=== PATIENT | male | born 1965 | race Caucasian/White ===

== ENCOUNTER 2017-11-01 09:09 | Outpatient (RCR) | payer MEDICARE, MEDICAID, SELFPAY ==
[2017-10-11 00:14] VITALS: BP 107/70; PULSE 106; RESP 16; TEMP 36.3; BMI 16.9
[2017-11-01 10:44] VITALS: BP 117/60; PULSE 95; RESP 16; TEMP 36.7; BMI 16.9
--- NOTE | 2017-11-01 15:15 | PN.PCM_ITS ---
Type of Wound Date of Service: 11/01/17 Chief Complaint: Bilateral ischial pressure sores, Stage IV. History of Wound: Patient has long standing bilateral ischial pressure sores, Stage IV, with the left side extending to the femoral head and the right side extending to the perineal area and the prostate. Surgery would entail quite extensive excision with amputations at a tertiary center. Patient does not want to pursue any heroic surgeries at this time since it is not a guarantee his pressure issues won't recur. With aggressive amputations, his already tenuous balance would be even more disrupted. Today he denies any fever. His appetite is ok. At the present time, we are providing conservative care on a monthly basis. Progress of Wound: Stable with minimal improvement. - Physical Exam Vital Signs Temp Pulse Resp BP 98.1 F 95 16 117/60 11/01/17 10:44 11/01/17 10:44 11/01/17 10:44 11/01/17 10:44 Wound Measurements and Assessment WC - Nurse 1 - General Ulcer Measurement Start: 11/01/17 10:44 Freq: Status: Active Protocol: Activity Type Activity Date Activity User E-Sign Co-Sign Detail Recorded Client Recorded Date Recorded By Document 11/01/17 10:44 DL [id number] 11/01/17 11:00 DL 11/01/17 10:44 Wound Center Nurse 1 [Ulcer Assessment Protocol: WC.WD.LOC] #2 Left Ischium -Current Size (cm) - Length 3 -Current Size (cm) - Width 7.5 -Current Size (cm) - Depth 0.7 -Total Square Cm 22.5 -Photo Taken No -Epithelialization Medium 34-66% -Exudate Amt Medium (34-66%) -Exudate Type Serosanguineous -Wound Margin Thickened & Rolled Under -Granulation Amt Medium (34-66%) -Granulation Quality [place] Red -Necrosis Amt Medium (34-66%) -Necrotic Tissue Type Adherent Slough -Structure Exposed N/A -Texture (Steffi-wound Skin Appearance) Scarring -Moisture (Steffi-wound Skin Appearance No Abnormality ) -Color (Steffi-wound Skin Appearance) No Abnormality -Temperature (Steffi-wound Skin No Abnormality Appearance) (Pt Warm) -Tenderness on Palpation (Steffi-wound No Skin Appearance) -Ulcer Cleansing Rinsed/ Irrigated with Saline -Foul Odor after Cleansing No -Anesthetic Used 4% Lidocaine Solution #1 Right Ischium -Current Size (cm) - Length 2.6 -Current Size (cm) - Width 5 -Current Size (cm) - Depth 1.6 -Total Square Cm 13.0 -Photo Taken No -Epithelialization Medium 34-66% -Tunneling Position (O'clock) 1 -Tunneling Distance (cm) 6.7 -Exudate Amt Medium (34-66%) -Exudate Type Serosanguineous -Wound Margin Thickened & Rolled Under -Granulation Amt Medium (34-66%) -Granulation Quality [place] Red -Necrosis Amt Medium (34-66%) -Necrotic Tissue Type Adherent Slough -Structure Exposed N/A -Texture (Steffi-wound Skin Appearance) Scarring -Moisture (Steffi-wound Skin Appearance No Abnormality ) -Color (Steffi-wound Skin Appearance) No Abnormality -Ulcer Cleansing Rinsed/ Irrigated with Saline -Foul Odor after Cleansing No -Anesthetic Used 4% Lidocaine Solution WC - Nurse 2 - General Ulcer CM Notes Start: 11/01/17 10:44 Freq: Status: Active Protocol: Activity Type Activity Date Activity User E-Sign Co-Sign Detail Recorded Client Recorded Date Recorded By Document 11/01/17 11:40 [id number] 11/01/17 11:41 DEBORAH 11/01/17 11:40 Wound Center Nurse 2 [Procedure/Treatment] #2 Left Ischium -Time 11:40 -Correct Patient Yes -Correct Side, Site, Position Yes -Correct Procedure Yes -Procedure Performed Yes -Type of Procedure Debridement -Clinical Debridement Subcutaneous -Post Debridement Size (cm) - Length 3.1 -Post Debridement Size (cm) - Width 7.5 -Post Debridement Size (cm) - Depth 0.8 -Total Square Cm 23.25 -Wound/Ulcer Outcome Not Healed -Ulcer Cleansing Rinsed/ Irrigated with Saline -Foul Odor after Cleansing No -Bioengineered Tissue No -Cetacaine [place] No -Bleeding Controlled with Pressure -Treatment Response Procedure Tolerated Well #1 Right Ischium -Time 11:40 -Correct Patient Yes -Correct Side, Site, Position Yes -Correct Procedure Yes -Procedure Performed Yes -Type of Procedure Debridement -Clinical Debridement Subcutaneous -Post Debridement Size (cm) - Length 2.7 -Post Debridement Size (cm) - Width 5 -Post Debridement Size (cm) - Depth 1.6 -Total Square Cm 13.5 -Wound/Ulcer Outcome Not Healed -Ulcer Cleansing Rinsed/ Irrigated with Saline -Foul Odor after Cleansing No -Bioengineered Tissue No -Cetacaine [place] No -Bleeding Controlled with Pressure -Treatment Response Procedure Tolerated Well [See Physician Procedure note for Specifics] Pain Scale: 0-10 Numeric [Pain] -Is Patient Pain Free? Yes Debridement Note Post-Debridement Measurements/Treatment WC - Nurse 2 - General Ulcer CM Notes Start: 11/01/17 10:44 Freq: Status: Active Protocol: Activity Type Activity Date Activity User E-Sign Co-Sign Detail Recorded Client Recorded Date Recorded By Document 11/01/17 11:40 [id number] 11/01/17 11:41 DEBORAH 11/01/17 11:40 Wound Center Nurse 2 #2 Left Ischium -Time 11:40 -Correct Patient Yes -Correct Side, Site, Position Yes -Correct Procedure Yes -Procedure Performed Yes -Type of Procedure Debridement -Clinical Debridement Subcutaneous -Post Debridement Size (cm) - Length 3.1 -Post Debridement Size (cm) - Width 7.5 -Post Debridement Size (cm) - Depth 0.8 -Total Square Cm 23.25 -Wound/Ulcer Outcome Not Healed -Ulcer Cleansing Rinsed/ Irrigated with Saline -Foul Odor after Cleansing No -Bioengineered Tissue No -Cetacaine [place] No -Bleeding Controlled with Pressure -Treatment Response Procedure Tolerated Well #1 Right Ischium -Time 11:40 -Correct Patient Yes -Correct Side, Site, Position Yes -Correct Procedure Yes -Procedure Performed Yes -Type of Procedure Debridement -Clinical Debridement Subcutaneous -Post Debridement Size (cm) - Length 2.7 -Post Debridement Size (cm) - Width 5 -Post Debridement Size (cm) - Depth 1.6 -Total Square Cm 13.5 -Wound/Ulcer Outcome Not Healed -Ulcer Cleansing Rinsed/ Irrigated with Saline -Foul Odor after Cleansing No -Bioengineered Tissue No -Cetacaine [place] No -Bleeding Controlled with Pressure -Treatment Response Procedure Tolerated Well Pain Scale: 0-10 Numeric Is Patient Pain Free? Yes Wound debrided: #1 Right ischial area with perineal extension. Laterality: Right Wound Grade/Stage: IV. Type of Debridement: Excisional debridement Anesthesia Used: 4% Lidocaine Solution Depth: Down to and including healthy tissue, in the subcutaneous layer Percentage of wound debrided: 100 Instrument Used: 7mm curette Tissue Removed: subcutaneous tissue. Severity: Fat Layer Exposed Amount of bleeding with debridement: Mild Bleeding Controlled with: Pressure Patient tolerated procedure well - Additional Wound Wound debrided: #2 Left ischial area with femoral extension. Laterality: Left Wound Grade/Stage: IV. Type of Debridement: Excisional debridement Anesthesia Used: 4% Lidocaine Solution Depth: Down to and including healthy tissue, in the subcutaneous layer Percentage of wound debrided: 100 Instrument Used: 7mm curette Tissue Removed: subcutaneous tissue. Severity: Fat Layer Exposed Amount of bleeding with debridement: Mild Bleeding Controlled with: Pressure Patient tolerated procedure: Patient tolerated procedure well Assessment/Plan Assessment: 1. Right ischial pressure sore with extension to perineal area, Stage IV. 2. Left ischial pressure sore with extension to the femur, Stage IV. 3. Paraplegia, longstanding. 4. History of MRSA. 5. History of osteomyelitis with multiple prior surgeries. 6. Smoker. Plan: Continue Aquacel silver dressing changes daily to both ischial pressure sores. Encourage nutritional supplementation with protein to help the healing process. Encouraged the patient to stop smoking as it may have deleterious effects on wound healing. Followup 4 weeks.
== END 2017-11-10 23:59 ==
LOC: WC 09:09
PROVIDERS: Family Provider Family Medicine; PCP Family Medicine; Visit Provider Surgery
DX: L89.224 Pressure ulcer of left hip, stage 4 (principal); L89.214 Pressure ulcer of right hip, stage 4; G82.20 Paraplegia, unspecified; Z86.14 Personal history of Methicillin resistant Staphylococcus aureus infection; F17.200 Nicotine dependence, unspecified, uncomplicated
CPT/HCPCS: 11042; 11045

== ENCOUNTER 2017-11-29 11:07 | Outpatient (RCR) | payer MEDICARE, MEDICAID, SELFPAY ==
[2017-11-01 10:44] VITALS: BP 117/60
[2017-11-11 00:23] VITALS: PULSE 95; RESP 16; TEMP 36.7
[2017-11-29 11:15] VITALS: BP 151/78; PULSE 108; RESP 18; TEMP 36.5; BMI 16.9
--- NOTE | 2017-11-29 19:23 | PN.PCM_ITS ---
Type of Wound Date of Service: 11/29/17 Chief Complaint: Bilateral ischial pressure sores, Stage IV. History of Wound: Patient has long standing bilateral ischial pressure sores, Stage IV, with the left side extending to the femoral head and the right side extending to the perineal area and the prostate. Surgery would entail quite extensive excision with amputations at a tertiary center. Patient does not want to pursue any heroic surgeries at this time since it is not a guarantee his pressure issues won't recur. With aggressive amputations, his already tenuous balance would be even more disrupted. Today he denies any fever. His appetite is ok. At the present time, we are providing conservative care on a monthly basis. Progress of Wound: Stable with minimal improvement. - Physical Exam Vital Signs Temp Pulse Resp BP 97.7 F L 108 H 18 151/78 H 11/29/17 11:15 11/29/17 11:15 11/29/17 11:15 11/29/17 11:15 Wound Measurements and Assessment WC - Nurse 1 - General Ulcer Measurement Start: 11/29/17 11:15 Freq: Status: Active Protocol: Activity Type Activity Date Activity User E-Sign Co-Sign Detail Recorded Client Recorded Date Recorded By Document 11/29/17 11:15 DV [id number] 11/29/17 11:26 DV 11/29/17 11:15 Wound Center Nurse 1 [Ulcer Assessment] #2 Left Ischium -Combined with other wound No -Current Size (cm) - Length 5.3 -Current Size (cm) - Width 7.5 -Current Size (cm) - Depth 0.9 -Total Square Cm 39.75 -Photo Taken Yes -Epithelialization None Present -Tunneling No -Undermining/Tunneling Yes -Undermining/Tunneling Starts (O' 11 clock) -Undermining/Tunneling Ends (O'clock) 4 -Maximum Distance (cm) 1.9 -Circular Undermining No -Classification - Thickness Full Thickness with Exposed Support Structure -Exudate Amt Large (67-100%) -Exudate Type Yellow/Green -Wound Margin Distinct, Outline Attached -Granulation Amt None Present (0 %) -Granulation Quality [place] -Slough/Fibrin Yes -Necrosis Amt Large (67-100%) -Necrotic Tissue Type Adherent Slough -Structure Exposed Muscle Bone Fat Layer Exposed None/Limited to Skin Breakdown -Texture (Steffi-wound Skin Appearance) Assessed Scarring -Moisture (Steffi-wound Skin Appearance Assessed ) Maceration -Color (Steffi-wound Skin Appearance) Assessed Ery[place]ma -Temperature (Steffi-wound Skin No Abnormality Appearance) (Pt Warm) -Tenderness on Palpation (Steffi-wound No Skin Appearance) -Ulcer Cleansing Wound Cleanser -Foul Odor after Cleansing No #1 Right Ischium -Combined with other wound No -Current Size (cm) - Length 3.4 -Current Size (cm) - Width 3.8 -Current Size (cm) - Depth 1.3 -Total Square Cm 12.92 -Photo Taken Yes -Epithelialization None Present -Tunneling No -Tunneling Position (O'clock) 10 -Tunneling Distance (cm) 7.1 -Classification - Thickness Full Thickness with Exposed Support Structure -Exudate Amt Medium (34-66%) -Exudate Type Serosanguineous -Wound Margin Distinct, Outline Attached -Granulation Amt None Present (0 %) -Granulation Quality N/A -Slough/Fibrin Yes -Necrosis Amt Medium (34-66%) -Necrotic Tissue Type Adherent Slough -Structure Exposed Muscle Fat Layer Exposed -Texture (Steffi-wound Skin Appearance) Assessed Scarring -Moisture (Steffi-wound Skin Appearance No Abnormality ) Maceration [place] -Color (Steffi-wound Skin Appearance) Assessed Erythema -Temperature (Steffi-wound Skin No Abnormality Appearance) (Pt Warm) -Ulcer Cleansing Wound Cleanser -Foul Odor after Cleansing No WC - Nurse 2 - General Ulcer CM Notes Start: 11/29/17 11:15 Freq: Status: Active Protocol: Activity Type Activity Date Activity User E-Sign Co-Sign Detail Recorded Client Recorded Date Recorded By Document 11/29/17 11:41 DEBORAH [id number] 11/29/17 11:42 DEBORAH 11/29/17 11:41 Wound Center Nurse 2 [Procedure/Treatment] #2 Left Ischium -Time 11:41 -Correct Patient Yes -Correct Side, Site, Position Yes -Correct Procedure Yes -Procedure Performed Yes -Type of Procedure Debridement -Clinical Debridement Muscle -Post Debridement Size (cm) - Length 5.5 -Post Debridement Size (cm) - Width 7.5 -Post Debridement Size (cm) - Depth 1.0 -Total Square Cm 41.25 -Wound/Ulcer Outcome Not Healed -Ulcer Cleansing Rinsed/ Irrigated with Saline -Foul Odor after Cleansing No -Bioengineered Tissue No -Bleeding Controlled with Pressure -Treatment Response Procedure Tolerated Well #1 Right Ischium -Time 11:41 -Correct Patient Yes -Correct Side, Site, Position Yes -Correct Procedure Yes -Procedure Performed Yes -Type of Procedure Debridement -Clinical Debridement Muscle -Post Debridement Size (cm) - Length 3.5 -Post Debridement Size (cm) - Width 3.8 -Post Debridement Size (cm) - Depth 1.3 -Total Square Cm 13.30 -Wound/Ulcer Outcome Not Healed -Ulcer Cleansing Rinsed/ Irrigated with Saline -Foul Odor after Cleansing No -Bioengineered Tissue No -Bleeding Controlled with Pressure -Treatment Response Procedure Tolerated Well [See Physician Procedure note for Specifics] Pain Scale: 0-10 Numeric [Pain] -Is Patient Pain Free? Yes Debridement Note Post-Debridement Measurements/Treatment WC - Nurse 2 - General Ulcer CM Notes Start: 11/29/17 11:15 Freq: Status: Active Protocol: Activity Type Activity Date Activity User E-Sign Co-Sign Detail Recorded Client Recorded Date Recorded By Document 11/29/17 11:41 [id number] 11/29/17 11:42 DEBORAH 11/29/17 11:41 Wound Center Nurse 2 #2 Left Ischium -Time 11:41 -Correct Patient Yes -Correct Side, Site, Position Yes -Correct Procedure Yes -Procedure Performed Yes -Type of Procedure Debridement -Clinical Debridement Muscle -Post Debridement Size (cm) - Length 5.5 -Post Debridement Size (cm) - Width 7.5 -Post Debridement Size (cm) - Depth 1.0 -Total Square Cm 41.25 -Wound/Ulcer Outcome Not Healed -Ulcer Cleansing Rinsed/ Irrigated with Saline -Foul Odor after Cleansing No -Bioengineered Tissue No -Bleeding Controlled with Pressure -Treatment Response Procedure Tolerated Well #1 Right Ischium -Time 11:41 -Correct Patient Yes -Correct Side, Site, Position Yes -Correct Procedure Yes -Procedure Performed Yes -Type of Procedure Debridement -Clinical Debridement Muscle -Post Debridement Size (cm) - Length 3.5 -Post Debridement Size (cm) - Width 3.8 -Post Debridement Size (cm) - Depth 1.3 -Total Square Cm 13.30 -Wound/Ulcer Outcome Not Healed -Ulcer Cleansing Rinsed/ Irrigated with Saline -Foul Odor after Cleansing No -Bioengineered Tissue No -Bleeding Controlled with Pressure -Treatment Response Procedure Tolerated Well Pain Scale: 0-10 Numeric Is Patient Pain Free? Yes Wound debrided: #1 Right ischial area with perineal extension. Laterality: Right Wound Grade/Stage: IV. Type of Debridement: Excisional debridement Anesthesia Used: 4% Lidocaine Solution Depth: Down to and including healthy tissue, in the subcutaneous layer, to muscle Percentage of wound debrided: 100 Instrument Used: 7mm curette Tissue Removed: subcutaneous tissue and muscle. Severity: Fat Layer Exposed - muscle is exposed. bone is palpable. Amount of bleeding with debridement: Mild Bleeding Controlled with: Pressure Patient tolerated procedure well - Additional Wound Wound debrided: #2 Left ischial area with femoral extension. Laterality: Left Wound Grade/Stage: IV. Type of Debridement: Excisional debridement Anesthesia Used: 4% Lidocaine Solution Depth: Down to and including healthy tissue, in the subcutaneous layer, to muscle Percentage of wound debrided: 100 Instrument Used: 7mm curette Tissue Removed: subcutaneous tissue and muscle. Severity: Fat Layer Exposed - muscle is exposed. bone is palpable. Amount of bleeding with debridement: Mild Bleeding Controlled with: Pressure Patient tolerated procedure: Patient tolerated procedure well Assessment/Plan Assessment: 1. Right ischial pressure sore with extension to perineal area, Stage IV. 2. Left ischial pressure sore with extension to the femur, Stage IV. 3. Paraplegia, longstanding. 4. History of MRSA. 5. History of osteomyelitis with multiple prior surgeries. 6. Smoker. Plan: Continue Aquacel silver dressing changes daily to both ischial pressure sores. Encourage nutritional supplementation with protein to help the healing process. Encouraged the patient to stop smoking as it may have deleterious effects on wound healing. Followup 4 weeks.
== END 2017-12-08 23:59 ==
LOC: WC 11:07
PROVIDERS: Family Provider Family Medicine; PCP Family Medicine; Visit Provider Surgery
DX: L89.224 Pressure ulcer of left hip, stage 4 (principal); L89.214 Pressure ulcer of right hip, stage 4; F17.200 Nicotine dependence, unspecified, uncomplicated; Z86.14 Personal history of Methicillin resistant Staphylococcus aureus infection; G82.20 Paraplegia, unspecified
CPT/HCPCS: 11043; 11046

== ENCOUNTER 2017-12-27 08:21 | Outpatient (RCR) | payer MEDICARE, MEDICAID, SELFPAY ==
[2017-12-09 00:23] VITALS: BP 117/60; PULSE 108; RESP 18; TEMP 36.5; BMI 16.9
[2017-12-27 11:26] VITALS: BP 120/58; PULSE 93; RESP 18; TEMP 37; BMI 16.9
--- NOTE | 2017-12-27 18:30 | PN.PCM_ITS ---
Type of Wound Date of Service: 12/27/17 Chief Complaint: Bilateral ischial pressure sores, Stage IV. History of Wound: Patient has long standing bilateral ischial pressure sores, Stage IV, with the left side extending to the femoral head and the right side extending to the perineal area and the prostate. Surgery would entail quite extensive excision with amputations at a tertiary center. Patient does not want to pursue any heroic surgeries at this time since it is not a guarantee his pressure issues won't recur. With aggressive amputations, his already tenuous balance would be even more disrupted. Today he denies any fever. His appetite is ok. At the present time, we are providing conservative care on a monthly basis. Progress of Wound: Stable with minimal improvement. - Physical Exam Vital Signs Temp Pulse Resp BP 98.6 F 93 18 120/58 L 12/27/17 11:26 12/27/17 11:26 12/27/17 11:26 12/27/17 11:26 Wound Measurements and Assessment WC - Nurse 1 - General Ulcer Measurement Start: 12/27/17 11:26 Freq: Status: Active Protocol: Activity Type Activity Date Activity User E-Sign Co-Sign Detail Recorded Client Recorded Date Recorded By Document 12/27/17 11:26 [facility] [id number] 12/27/17 11:36 [facility] 12/27/17 11:26 Wound Center Nurse 1 [Ulcer Assessment] #2 Left Ischium -Combined with other wound No -Current Size (cm) - Length 5.3 -Current Size (cm) - Width 7.6 -Current Size (cm) - Depth 1.2 -Total Square Cm 40.28 -Date of Last Picture (Recall this 12/27/17 field) -Photo Taken Yes -Epithelialization None Present -Tunneling No -Undermining/Tunneling Yes -Undermining/Tunneling Starts (O' 11 clock) -Undermining/Tunneling Ends (O'clock) 6 -Maximum Distance (cm) 2.5 -Exudate Amt Medium (34-66%) -Exudate Type Serosanguineous -Wound Margin Distinct, Outline Attached -Granulation Amt Medium (34-66%) -Granulation Quality Pale [place] -Slough/Fibrin Yes -Necrosis Amt Small (1-33%) -Necrotic Tissue Type Adherent Slough -Texture (Steffi-wound Skin Appearance) Scarring -Moisture (Steffi-wound Skin Appearance Maceration ) -Color (Steffi-wound Skin Appearance) Assessed Palor -Temperature (Steffi-wound Skin No Abnormality Appearance) (Pt Warm) -Tenderness on Palpation (Steffi-wound No Skin Appearance) -Ulcer Cleansing Rinsed/ Irrigated with Saline -Foul Odor after Cleansing No #1 Right Ischium -Combined with other wound No -Current Size (cm) - Length 2.5 -Current Size (cm) - Width 5.5 -Current Size (cm) - Depth 1.7 -Total Square Cm 13.75 -Date of Last Picture (Recall this 12/27/17 field) -Photo Taken Yes -Epithelialization Small 1-33% -Tunneling No -Undermining/Tunneling Yes -Undermining/Tunneling Starts (O' 3 clock) -Undermining/Tunneling Ends (O'clock) 7 -Maximum Distance (cm) 1.5 -Exudate Amt Medium (34-66%) -Exudate Type Serosanguineous -Wound Margin Distinct, Outline Attached -Granulation Amt Medium (34-66%) -Granulation Quality [place] -Slough/Fibrin Yes -Necrosis Amt Medium (34-66%) -Necrotic Tissue Type Adherent Slough -Texture (Steffi-wound Skin Appearance) Scarring -Moisture (Steffi-wound Skin Appearance Maceration ) -Color (Steffi-wound Skin Appearance) Erythema -Temperature (Steffi-wound Skin No Abnormality Appearance) (Pt Warm) -Tenderness on Palpation (Steffi-wound No Skin Appearance) -Ulcer Cleansing Rinsed/ Irrigated with Saline -Foul Odor after Cleansing No WC - Nurse 2 - General Ulcer CM Notes Start: 12/27/17 11:26 Freq: Status: Active Protocol: Activity Type Activity Date Activity User E-Sign Co-Sign Detail Recorded Client Recorded Date Recorded By Document 12/27/17 11:54 DEBORAH [id number] 12/27/17 11:56 DEBORAH 12/27/17 11:54 Wound Center Nurse 2 [Procedure/Treatment] #2 Left Ischium -Time 11:55 -Correct Patient Yes -Correct Side, Site, Position Yes -Correct Procedure Yes -Procedure Performed Yes -Type of Procedure Debridement -Clinical Debridement Muscle -Post Debridement Size (cm) - Length 5.3 -Post Debridement Size (cm) - Width 7.7 -Post Debridement Size (cm) - Depth 1.2 -Total Square Cm 40.81 -Wound/Ulcer Outcome Not Healed -Ulcer Cleansing Rinsed/ Irrigated with Saline -Foul Odor after Cleansing No -Bioengineered Tissue No -Bleeding Controlled with Pressure -Treatment Response Procedure Tolerated Well #1 Right Ischium -Time 11:55 -Correct Patient Yes -Correct Side, Site, Position Yes -Correct Procedure Yes -Procedure Performed Yes -Type of Procedure Debridement -Clinical Debridement Muscle -Post Debridement Size (cm) - Length 2.5 -Post Debridement Size (cm) - Width 5.6 -Post Debridement Size (cm) - Depth 1.7 -Total Square Cm 14.00 -Wound/Ulcer Outcome Not Healed -Ulcer Cleansing Rinsed/ Irrigated with Saline -Foul Odor after Cleansing No -Bioengineered Tissue No -Bleeding Controlled with Pressure -Treatment Response Procedure Tolerated Well [See Physician Procedure note for Specifics] Pain Scale: 0-10 Numeric [Pain] -Is Patient Pain Free? Yes Debridement Note Post-Debridement Measurements/Treatment WC - Nurse 2 - General Ulcer CM Notes Start: 12/27/17 11:26 Freq: Status: Active Protocol: Activity Type Activity Date Activity User E-Sign Co-Sign Detail Recorded Client Recorded Date Recorded By Document 12/27/17 11:54 DEBORAH [id number] 12/27/17 11:56 DEBORAH 12/27/17 11:54 Wound Center Nurse 2 #2 Left Ischium -Time 11:55 -Correct Patient Yes -Correct Side, Site, Position Yes -Correct Procedure Yes -Procedure Performed Yes -Type of Procedure Debridement -Clinical Debridement Muscle -Post Debridement Size (cm) - Length 5.3 -Post Debridement Size (cm) - Width 7.7 -Post Debridement Size (cm) - Depth 1.2 -Total Square Cm 40.81 -Wound/Ulcer Outcome Not Healed -Ulcer Cleansing Rinsed/ Irrigated with Saline -Foul Odor after Cleansing No -Bioengineered Tissue No -Bleeding Controlled with Pressure -Treatment Response Procedure Tolerated Well #1 Right Ischium -Time 11:55 -Correct Patient Yes -Correct Side, Site, Position Yes -Correct Procedure Yes -Procedure Performed Yes -Type of Procedure Debridement -Clinical Debridement Muscle -Post Debridement Size (cm) - Length 2.5 -Post Debridement Size (cm) - Width 5.6 -Post Debridement Size (cm) - Depth 1.7 -Total Square Cm 14.00 -Wound/Ulcer Outcome Not Healed -Ulcer Cleansing Rinsed/ Irrigated with Saline -Foul Odor after Cleansing No -Bioengineered Tissue No -Bleeding Controlled with Pressure -Treatment Response Procedure Tolerated Well Pain Scale: 0-10 Numeric Is Patient Pain Free? Yes Wound debrided: #1 Right ischial area with perineal extension. Laterality: Right Wound Grade/Stage: IV. Type of Debridement: Excisional debridement Anesthesia Used: 4% Lidocaine Solution Depth: Down to and including healthy tissue, in the subcutaneous layer, to muscle Percentage of wound debrided: 100 Instrument Used: 7mm curette Tissue Removed: subcutaneous tissue and muscle. Severity: Fat Layer Exposed - muscle is exposed. bone is palpable. Amount of bleeding with debridement: Mild Bleeding Controlled with: Pressure Patient tolerated procedure well - Additional Wound Wound debrided: #2 Left ischial area with femoral extension. Laterality: Left Wound Grade/Stage: IV. Type of Debridement: Excisional debridement Anesthesia Used: 4% Lidocaine Solution Depth: Down to and including healthy tissue, in the subcutaneous layer, to muscle Percentage of wound debrided: 100 Instrument Used: 7mm curette Tissue Removed: subcutaneous tissue and muscle. Severity: Fat Layer Exposed - muscle is exposed. bone is exposed. Amount of bleeding with debridement: Mild Bleeding Controlled with: Pressure Patient tolerated procedure: Patient tolerated procedure well Assessment/Plan Assessment: 1. Right ischial pressure sore with extension to perineal area, Stage IV. 2. Left ischial pressure sore with extension to the femur, Stage IV. 3. Paraplegia, longstanding. 4. History of MRSA. 5. History of osteomyelitis with multiple prior surgeries. 6. Smoker. Plan: Continue Aquacel silver dressing changes daily to both ischial pressure sores. Encourage nutritional supplementation with protein to help the healing process. Encouraged the patient to stop smoking as it may have deleterious effects on wound healing. Followup 4 weeks.
== END 2018-01-08 23:59 ==
LOC: WC 08:21
PROVIDERS: Family Provider Family Medicine; PCP Family Medicine; Visit Provider Surgery
DX: L89.224 Pressure ulcer of left hip, stage 4 (principal); L89.214 Pressure ulcer of right hip, stage 4; G82.20 Paraplegia, unspecified; Z86.14 Personal history of Methicillin resistant Staphylococcus aureus infection; F17.200 Nicotine dependence, unspecified, uncomplicated
CPT/HCPCS: 11043; 11046

== ENCOUNTER 2018-01-24 08:49 | Outpatient (RCR) | payer MEDICARE, MEDICAID, SELFPAY ==
[2018-01-09 00:25] VITALS: BP 117/60; PULSE 93; RESP 18; TEMP 37; BMI 16.9
[2018-01-24 11:18] VITALS: BP 133/46; PULSE 95; RESP 16; TEMP 37; BMI 16.9
--- NOTE | 2018-01-24 23:07 | PCM.WC.PN ---
Type of Wound Date of Service: 01/24/18 Chief Complaint: Bilateral ischial pressure sores, Stage IV. History of Wound: Patient has long standing bilateral ischial pressure sores, Stage IV, with the left side extending to the femoral head and the right side extending to the perineal area and the prostate. Surgery would entail quite extensive excision with amputations at a tertiary center. Patient does not want to pursue any heroic surgeries at this time since it is not a guarantee his pressure issues won't recur. With aggressive amputations, his already tenuous balance would be even more disrupted. Today he denies any fever. His appetite is ok. At the present time, we are providing conservative care on a monthly basis. Progress of Wound: Stable with minimal improvement. - Physical Exam Vital Signs Temp Pulse Resp BP 98.6 F 95 16 133/46 H 01/24/18 11:18 01/24/18 11:18 01/24/18 11:18 01/24/18 11:18 Wound Measurements and Assessment WC - Nurse 1 - General Ulcer Measurement Start: 01/24/18 11:18 Freq: Status: Active Protocol: Activity Type Activity Date Activity User E-Sign Co-Sign Detail Recorded Client Recorded Date Recorded By Document 01/24/18 11:18 [facility] [id number] 01/24/18 11:35 [facility] 01/24/18 11:18 Wound Center Nurse 1 [Ulcer Assessment] #2 Left Ischium -Combined with other wound No -Current Size (cm) - Length 4.4 -Current Size (cm) - Width 6.6 -Current Size (cm) - Depth 1.6 -Total Square Cm 29.04 -Date of Last Picture (Recall this 01/24/18 field) -Photo Taken Yes -Epithelialization None Present -Undermining/Tunneling Starts (O' 6 clock) -Undermining/Tunneling Ends (O'clock) 5 -Maximum Distance (cm) 2.0 -Circular Undermining No -Classification - Thickness Full Thickness without Exposed Support Structure -Exudate Amt Large (67-100%) -Exudate Type Serosanguineous -Wound Margin [place] -Granulation Amt None Present (0 %) -Granulation Quality N/A -Slough/Fibrin Yes -Necrosis Amt Large (67-100%) -Necrotic Tissue Type Adherent Slough -Structure Exposed Fat Layer Exposed None/Limited to Skin Breakdown -Texture (Steffi-wound Skin Appearance) Assessed Localized Edema Scarring -Moisture (Steffi-wound Skin Appearance Assessed ) Weeping -Color (Steffi-wound Skin Appearance) Assessed Palor -Temperature (Steffi-wound Skin No Abnormality Appearance) (Pt Warm) -Tenderness on Palpation (Steffi-wound No Skin Appearance) -Ulcer Cleansing Rinsed/ Irrigated with Saline -Foul Odor after Cleansing No #1 Right Ischium -Combined with other wound No -Current Size (cm) - Length 4.3 -Current Size (cm) - Width 3.1 -Current Size (cm) - Depth 1.5 -Total Square Cm 13.33 -Date of Last Picture (Recall this 01/24/18 field) -Photo Taken Yes -Epithelialization None Present -Tunneling No -Tunneling Position (O'clock) 10 -Tunneling Distance (cm) 7.4 -Undermining/Tunneling No -Exudate Amt Medium (34-66%) -Exudate Type Serosanguineous -Wound Margin [place] -Granulation Amt None Present (0 %) -Slough/Fibrin Yes -Necrosis Amt Large (67-100%) -Necrotic Tissue Type Adherent Slough -Structure Exposed Fat Layer Exposed None/Limited to Skin Breakdown -Texture (Steffi-wound Skin Appearance) Assessed Scarring -Moisture (Steffi-wound Skin Appearance Assessed ) Weeping -Color (Steffi-wound Skin Appearance) Assessed Palor -Temperature (Steffi-wound Skin No Abnormality Appearance) (Pt Warm) -Tenderness on Palpation (Steffi-wound No Skin Appearance) -Ulcer Cleansing Rinsed/ Irrigated with Saline -Foul Odor after Cleansing No WC - Nurse 2 - General Ulcer CM Notes Start: 01/24/18 11:18 Freq: Status: Active Protocol: Activity Type Activity Date Activity User E-Sign Co-Sign Detail Recorded Client Recorded Date Recorded By Document 01/24/18 12:41 DEBORAH [id number] 01/24/18 12:43 DEBORAH 01/24/18 12:41 Wound Center Nurse 2 [Procedure/Treatment] #2 Left Ischium -Time 12:42 -Correct Patient Yes -Correct Side, Site, Position Yes -Correct Procedure Yes -Procedure Performed Yes -Type of Procedure Debridement -Clinical Debridement Muscle -Post Debridement Size (cm) - Length 4.5 -Post Debridement Size (cm) - Width 6.6 -Post Debridement Size (cm) - Depth 1.6 -Total Square Cm 29.70 -Wound/Ulcer Outcome Not Healed -Ulcer Cleansing Rinsed/ Irrigated with Saline -Foul Odor after Cleansing No -Bioengineered Tissue No -Bleeding Controlled with Pressure -Treatment Response Procedure Tolerated Well #1 Right Ischium -Time 12:42 -Correct Patient Yes -Correct Side, Site, Position Yes -Correct Procedure Yes -Procedure Performed Yes -Type of Procedure Debridement -Clinical Debridement Muscle -Post Debridement Size (cm) - Length 4.4 -Post Debridement Size (cm) - Width 3.2 -Post Debridement Size (cm) - Depth 1.5 -Total Square Cm 14.08 -Wound/Ulcer Outcome Not Healed -Ulcer Cleansing Rinsed/ Irrigated with Saline -Foul Odor after Cleansing No -Bioengineered Tissue No -Bleeding Controlled with Pressure -Treatment Response Procedure Tolerated Well [See Physician Procedure note for Specifics] Pain Scale: 0-10 Numeric [Pain] -Is Patient Pain Free? Yes Debridement Note Post-Debridement Measurements/Treatment WC - Nurse 2 - General Ulcer CM Notes Start: 01/24/18 11:18 Freq: Status: Active Protocol: Activity Type Activity Date Activity User E-Sign Co-Sign Detail Recorded Client Recorded Date Recorded By Document 01/24/18 12:41 DEBORAH [id number] 01/24/18 12:43 DEBORAH 01/24/18 12:41 Wound Center Nurse 2 #2 Left Ischium -Time 12:42 -Correct Patient Yes -Correct Side, Site, Position Yes -Correct Procedure Yes -Procedure Performed Yes -Type of Procedure Debridement -Clinical Debridement Muscle -Post Debridement Size (cm) - Length 4.5 -Post Debridement Size (cm) - Width 6.6 -Post Debridement Size (cm) - Depth 1.6 -Total Square Cm 29.70 -Wound/Ulcer Outcome Not Healed -Ulcer Cleansing Rinsed/ Irrigated with Saline -Foul Odor after Cleansing No -Bioengineered Tissue No -Bleeding Controlled with Pressure -Treatment Response Procedure Tolerated Well #1 Right Ischium -Time 12:42 -Correct Patient Yes -Correct Side, Site, Position Yes -Correct Procedure Yes -Procedure Performed Yes -Type of Procedure Debridement -Clinical Debridement Muscle -Post Debridement Size (cm) - Length 4.4 -Post Debridement Size (cm) - Width 3.2 -Post Debridement Size (cm) - Depth 1.5 -Total Square Cm 14.08 -Wound/Ulcer Outcome Not Healed -Ulcer Cleansing Rinsed/ Irrigated with Saline -Foul Odor after Cleansing No -Bioengineered Tissue No -Bleeding Controlled with Pressure -Treatment Response Procedure Tolerated Well Pain Scale: 0-10 Numeric Is Patient Pain Free? Yes Wound debrided: #1 Right ischial area. Laterality: Right Wound Grade/Stage: IV. Type of Debridement: Excisional debridement Anesthesia Used: 4% Lidocaine Solution Depth: Down to and including healthy tissue, in the subcutaneous layer, to muscle, to bone - bone is palpable but not debrided. Percentage of wound debrided: 100 Instrument Used: 7mm curette Tissue Removed: subcutaneous tissue and muscle. Severity: Fat Layer Exposed - muscle is exposed. bone is palpable but not debrided. Amount of bleeding with debridement: Mild Bleeding Controlled with: Pressure Patient tolerated procedure well - Additional Wound Wound debrided: #2 Left ischial area. Laterality: Left Wound Grade/Stage: IV. Type of Debridement: Excisional debridement Anesthesia Used: 4% Lidocaine Solution Depth: Down to and including healthy tissue, in the subcutaneous layer, to muscle, to bone - bone is palpable but not debrided. Percentage of wound debrided: 100 Instrument Used: 7mm curette Tissue Removed: subcutaneous tissue and muscle. Severity: Fat Layer Exposed - muscle is exposed. bone is palpable but not exposed. Amount of bleeding with debridement: Mild Bleeding Controlled with: Pressure Patient tolerated procedure: Patient tolerated procedure well Assessment/Plan Assessment: 1. Right ischial pressure sore with extension to perineal area, Stage IV. 2. Left ischial pressure sore with extension to the femur, Stage IV. 3. Paraplegia, longstanding. 4. History of MRSA. 5. History of osteomyelitis with multiple prior surgeries. 6. Smoker. Plan: Continue Aquacel silver dressing changes daily to both ischial pressure sores. Encourage nutritional supplementation with protein to help the healing process. Encouraged the patient to stop smoking as it may have deleterious effects on wound healing. Followup 4 weeks.
== END 2018-02-07 23:59 ==
LOC: WC 08:49
PROVIDERS: Family Provider Family Medicine; PCP Family Medicine; Visit Provider Surgery
DX: L89.224 Pressure ulcer of left hip, stage 4 (principal); L89.214 Pressure ulcer of right hip, stage 4; Z86.14 Personal history of Methicillin resistant Staphylococcus aureus infection; G82.20 Paraplegia, unspecified; F17.200 Nicotine dependence, unspecified, uncomplicated
CPT/HCPCS: 11043; 11046

== ENCOUNTER → 2018-03-14 09:24 | Outpatient (CLI) | payer MEDICARE, MEDICAID, SELFPAY ==
--- NOTE | 2018-03-14 09:24 | DT_ITS ---
This patient was seen during an EMR downtime March 14, 2018 - March 21, 2018. This patient may have a combination of paper and electronic documentation or all paper documentation. All documentation is viewable within the e-chart portion of [employer] for each patient visit.
--- NOTE | 2018-03-14 10:00 | US_ITS ---
STUDY: SCROTUM ULTRASOUND REASON FOR EXAM: Male, 52 years old. Hydrocele TECHNIQUE: Ultrasound evaluation of the scrotum was performed with color Doppler and static mayfield-scale imaging. COMPARISON: None. FINDINGS: RIGHT TESTICLE INTRATESTICULAR: There is a normal size of the right testicle. The right testicle measures 4.2 x 2.0 x 2.0 cm. There is a homogenous echotexture. There is normal arterial and normal venous vascularity. There is no demonstrated right testicular mass or cyst. r EXTRATESTICULAR: The epididymis is not visualized. There is a large hydrocele or large spermatocele. There is no demonstrated varicocele. There is no demonstrated extratesticular mass or cyst. LEFT TESTICLE INTRATESTICULAR: There is a normal size of the left testicle. The left testicle measures 3.2 x 2.2 x 2.3 cm. There is a homogenous echotexture. There is normal arterial and normal venous vascularity. There is no demonstrated left testicular mass or cyst. EXTRATESTICULAR: The epididymis is normal in size. The epididymis head measures 0.9 x 0.7 cm. There is normal vascularity of the epididymis. There is no demonstrated epididymal cystic structure. There is a small hydrocele. There is no demonstrated varicocele. There is no demonstrated extratesticular mass or cyst. US/Testicular with Arterial Flow IMPRESSION: Normal bilateral testicles. Large right hydrocele or spermatocele. Nonvisualization of the right epididymis. Small left hydrocele. Electronically Signed: Subhash Jiménez DO at 21:22 EDT Tel [phone], Service support ,
== END ==
PROVIDERS: Family Provider Family Medicine; PCP Family Medicine; Visit Provider Urology
DX: N43.3 Hydrocele, unspecified (principal); N50.811 Right testicular pain
CPT/HCPCS: 76870; 93976

== ENCOUNTER 2018-03-21 14:18 | Outpatient (RCR) | payer MEDICARE, MEDICAID, SELFPAY | END 2018-04-09 23:59 | LOC: WC 14:18 | PROVIDERS: Family Provider Family Medicine; PCP Family Medicine; Visit Provider Surgery | DX: L89.222 Pressure ulcer of left hip, stage 2 (principal); L89.212 Pressure ulcer of right hip, stage 2; N50.89 Other specified disorders of the male genital organs; H92.01 Otalgia, right ear | CPT/HCPCS: 11043; 11046 ==

== ENCOUNTER 2018-03-25 12:16 | Day surgery (SDC) | payer MEDICARE, MEDICAID, SELFPAY ==
[2018-03-25 12:43] VITALS: BP 110/80; PULSE 94; RESP 14; TEMP 37; O2SAT 98; BMI 20.8
--- NOTE | 2018-03-25 14:10 | HYD_PTH ---
PATIENT: RICCARDO NERI LOC: [facility] [place] U#:[id number] AGE/SX: 52/M ROOM: RE03/25/[address]: Dr. Juanito Hughes MD : [id number] BED: DIS: 03/25/2018 SPEC #: [id number] RECD: 03/25/18 15:56 STATUS: EMY JOAQUIN #: [id number] GERMAIN: 03/25/18 14:[address]: Juanito Hughes DEPT: SURGICAL PATHOLOGY RECD BY: Patrick Vanegas ENTERED: 03/28/18 07:41 SP TYPE: HYDROCELE OTHR DR: Dr. Piero Comer MD Tissues: HYDROCELE Procedures: Surgery Specimen Level II HEADER OPERATION: Right hydrocelectomy PRE-OP DIAGNOSIS: Large right hydrocele TISSUE SUBMITTED: Hydrocele sac MICROSCOPIC DIAGNOSIS Hydrocele sac, hydrocelectomy: Consistent with hydrocele sac with reactive changes. SJ:cathi 6/19/18 MICROSCOPIC DESCRIPTION Slides are reviewed. GROSS DESCRIPTION Received in fixative is one container labeled with the patient's name and designated hydrocele sac. The specimen consists of an irregular piece of infante, indurated tissue measuring 4 x 3.5 x 0.5 cm. No mass lesion is identified. Clothing Sales Assistant sections are submitted in one cassette. / SJ:rg 03/28/18 TC:5 CPT: 01772
[2018-03-25] MEDS: Bupivacaine Mpf 0.5% 30 ML VIAL (14:24)
[2018-03-25] MEDS: Cefazolin 2 GM in 0.9% Normal Saline 100 ML IV (14:32)
--- NOTE | 2018-03-25 15:13 | PCM.DC.URO ---
Discharge Diet: Light diet - advance as tolerated, Soft diet Discharge Activity: Return to Normal Activity Call your doctor if your incision/area has: Continuous Slow Oozing, Sudden Increased Bleeding, Increased Pain/ Swelling, Increased Redness, Foul Smelling Discharge, Swelling at the incision site Call your doctor if you observe: Fever of 101 or Higher Instructions: Hydrocele Surgery (Hydrocelectomy) Allergies/Adverse Reactions: Allergies cephalexin monohydrate [From Keflex] Allergy (Verified 02/10/16 13:47) Itching ciprofloxacin [From Cipro] Allergy (Verified 02/10/16 13:47) Hives ciprofloxacin HCl [From Cipro] Allergy (Verified 02/10/16 13:47) Hives latex Allergy (Verified 02/10/16 13:47) Hives pt states only if indwelling catheter nitrofurantoin [From Macrobid] Allergy (Verified 02/10/16 13:47) Hives nitrofurantoin macrocrystalline [From Macrobid] Allergy (Verified 02/10/16 13:47) Hives Quinolones Allergy (Verified 02/10/16 13:47) Hives sulfamethoxazole Allergy (Verified 02/10/16 13:47) Hives vancomycin Adverse Reaction (Verified 02/10/16 13:47) Nausea, chills, fatigue, chlostrophobia PT REPORTS CHILLS, FATIGUE, Chlostrophobia, nausea, Feels like head was going to explode WITH TAKING IT ORAL- no problems with IV Medications to take at Discharge Hydrocodone Bitart/Apap 5-325 [Dunn[place]on 5/325] 1 tablet PO Q6H PRN PRN 07/11/13 Diazepam [Valium] 5 mg PO PRN 01/15/16 Primary Care Physician: Piero Comer MD [Primary Care Provider] - Please Follow Up With: Juanito Hughes MD When: call for an appt next to d/c drain.
--- NOTE | 2018-03-25 15:24 | OP.PCM_ITS ---
Report of Operation Date of Procedure: 03/25/18 Pre-Operative Diagnosis: Right hydrocele Post-Operative Diagnosis: same Surgery/Procedure Performed:: Right hydrocelectomy Description of Surgical Findings:: 52-year-old male who has a large symptomatic hydrocele is a spinal cord patient and feels like he has to sit on his hydrocele when he is in his chair he requested that I remove his hydrocele examined him in the office and he did have fairly large symptomatic hydrocele that was below him in the chair causing him pain and discomfort because the location I spoke to the patient specifically regarding the risk that this could get infected given its location and the bottom side and how I would have to do the surgery and after full discussion with the patient he was agree with to proceed we will cover him with antibiotics. We also talked about the potential that the hydrocele could come back and the need for drain postoperatively. Patient was taken back to the operating room at the smooth induction of general anesthesia he is placed on the table he had a very contorted body with contorted spine the legs tilted and contracture to one side was really no way to lay him flat, he had to lay on his side with with his legs to the one side but did this did allow us to get to the scrotum from behind the legs and behind the thighs underneath them with him laying side is the side so with this we prepped the patient on his side can have an awkward position with the scrotum hanging below him and then we prepped in the scrotum in this weird position with him on the side. Made an incision in the scrotal skin infiltrated lidocaine dissected down to the tunica sac dissected out the tunica sac and then delivered it through the small incision 4 cm incisions in the midline scrotum, and then I excised the sac and then oversew the edges with a running 3- 0 chromic, I then placed the drain in the superior aspect of the scrotum that we the drain can come up from above and not go below, we then inspected the scrotum and the scrotal contents the side the testicle was normal epididymis is normal we oversew the edges of the tunica sac with stitches and then placed the testicle back into the scrotal pouch I then placed a drain coming from above the testicle was small stab incision encircling the testicle below the draining the excess fluid around the testicle I sutured the drain in place with a nylon stitch and then closed the midline incision the scrotum with 2 layers of chromic stitches, fluffs and scrotal support was then placed patient's anesthetic was reversed and is taken back to PACU in good condition will follow up with us in about a week to remove the drain. Type of Anesthesia:: General Drains: PREET - Admit VTE Documentation VTE Present on Admission: No VTE Mechan Device Prophylaxis: SCD's VTE Pharm Prophylaxis ordered?: No Reason prophylaxis not ordered:: Treatment Not Indicated
[2018-03-25 15:27] VITALS: BP 110/80; BP 154/79; PULSE 75; RESP 17; TEMP 36.6; O2SAT 100
[2018-03-25 15:30] VITALS: BP 110/80; BP 145/72; PULSE 76; RESP 16; O2SAT 100
[2018-03-25 15:45] VITALS: BP 110/80; BP 139/65; PULSE 67; RESP 16; O2SAT 99
[2018-03-25 16:04] VITALS: BP 110/80; PULSE 65; RESP 16; TEMP 36.6; O2SAT 100
[2018-03-25 16:30] VITALS: BP 110/80
--- NOTE | 2018-03-25 17:01 | SUR.PHASEII ---
Addendum entered by Daina Spencer 03/25/18 17:39: Regarding homegoing prescription: [facility] pharm stated that they did not hear back from Dr Hughes to clarify prescription r/t pt's allergies. Dr Hughes informed that pt has gone home and that pt had requested that prescription be sent to [facility] since [facility] will be closed on Sat. Prescription phoned to [facility] pharmacy for Keflex 500mg po TID [id number] per Dr Hughes. Original Note: pt instructed that, per 's orders, he may shower.
== END 2018-03-25 17:15 | disposition home or self-care (01) ==
LOC: SDC 12:17 → AC 12:18
PROVIDERS: Family Provider Family Medicine; PCP Family Medicine; Visit Provider Urology
PROC: (CPT 55040; principal; 2018-03-25 13:55)
DX: N43.0 Encysted hydrocele (principal); G82.20 Paraplegia, unspecified; M41.9 Scoliosis, unspecified; M54.40 Lumbago with sciatica, unspecified side; Z72.0 Tobacco use; Z79.899 Other long term (current) drug therapy; Z93.3 Colostomy status; Z93.2 Ileostomy status; Z89.512 Acquired absence of left leg below knee
CPT/HCPCS: 55040; 88302; J7120; J2405

== ENCOUNTER 2018-05-02 10:30 | Outpatient (RCR) | payer MEDICARE, MEDICAID, SELFPAY ==
[2018-05-02 10:55] VITALS: BP 129/73; PULSE 76; RESP 16; TEMP 36.2
--- NOTE | 2018-05-02 20:16 | PCM.WC.PN ---
Type of Wound Date of Service: 05/02/18 Chief Complaint: Bilateral ischial pressure sores, Stage IV. History of Wound: Patient has long standing bilateral ischial pressure sores, Stage IV, with the left side extending to the femoral head and the right side extending to the perineal area and the prostate. Surgery would entail quite extensive excision with amputations at a tertiary center. Patient does not want to pursue any heroic surgeries at this time since it is not a guarantee his pressure issues won't recur. With aggressive amputations, his already tenuous balance would be even more disrupted. Today he denies any fever. His appetite is ok. At the present time, we are providing conservative care on a monthly basis. Progress of Wound: Stable with minimal improvement. - Physical Exam Vital Signs Temp Pulse Resp BP 97.1 F L 76 16 129/73 H 05/02/18 10:55 05/02/18 10:55 05/02/18 10:55 05/02/18 10:55 Wound Measurements and Assessment WC - Nurse 1 - General Ulcer Measurement Start: 05/02/18 10:48 Freq: Status: Active Protocol: Activity Type Activity Date Activity User E-Sign Co-Sign Detail Recorded Client Recorded Date Recorded By Document 05/02/18 10:55 [id number] 05/02/18 10:57 05/02/18 10:55 Wound Center Nurse 1 [Ulcer Assessment] #2 Left Ischium -Combined with other wound No -Current Size (cm) - Length 4.5 -Current Size (cm) - Width 6.4 -Current Size (cm) - Depth 1.4 -Total Square Cm 28.80 -Photo Taken No -Tunneling No -Undermining/Tunneling No -Circular Undermining No -Exudate Amt Medium (34-66%) -Exudate Type Serosanguineous -Wound Margin Distinct, Outline Attached -Granulation Amt None Present (0 %) -Temperature (Steffi-wound Skin No Abnormality Appearance) (Pt Warm) -Tenderness on Palpation (Steffi-wound No Skin Appearance) -Ulcer Cleansing Wound Cleanser -Foul Odor after Cleansing No -Anesthetic Used 5% Lidocaine Gel #1 Right Ischium -Combined with other wound No -Photo Taken No -Tunneling No -Undermining/Tunneling No -Circular Undermining No -Exudate Amt Medium (34-66%) -Exudate Type Serosanguineous -Wound Margin Distinct, Outline Attached -Slough/Fibrin No -Necrosis Amt None Present (0 %) -Temperature (Steffi-wound Skin No Abnormality Appearance) (Pt Warm) -Tenderness on Palpation (Steffi-wound No Skin Appearance) -Ulcer Cleansing Wound Cleanser -Foul Odor after Cleansing No -Anesthetic Used 5% Lidocaine Gel [Edema Assessment] -Lower Limb Edema Present NA WC - Nurse 2 - General Ulcer CM Notes Start: 05/02/18 10:48 Freq: Status: Active Protocol: Activity Type Activity Date Activity User E-Sign Co-Sign Detail Recorded Client Recorded Date Recorded By Document 05/02/18 11:09 [id number] 05/02/18 11:13 05/02/18 11:09 Wound Center Nurse 2 [Procedure/Treatment] #2 Left Ischium -Time 11:10 -Correct Patient Yes -Correct Side, Site, Position Yes -Correct Procedure Yes -Procedure Performed Yes -Type of Procedure Debridement -Clinical Debridement Muscle -Post Debridement Size (cm) - Length 4.5 -Post Debridement Size (cm) - Width 6.5 -Post Debridement Size (cm) - Depth 1.5 -Total Square Cm 29.25 -Wound/Ulcer Outcome Not Healed -Ulcer Cleansing Rinsed/ Irrigated with Saline -Foul Odor after Cleansing No -Bioengineered Tissue No -Bleeding Controlled with Pressure -Treatment Response Procedure Tolerated Well #1 Right Ischium -Time 11:10 -Correct Patient Yes -Correct Side, Site, Position Yes -Correct Procedure Yes -Procedure Performed Yes -Type of Procedure Debridement -Clinical Debridement Muscle -Post Debridement Size (cm) - Length 3.5 -Post Debridement Size (cm) - Width 4.1 -Post Debridement Size (cm) - Depth 1.1 -Total Square Cm 14.35 -Wound/Ulcer Outcome Not Healed -Ulcer Cleansing Rinsed/ Irrigated with Saline -Foul Odor after Cleansing No -Bioengineered Tissue No -Bleeding Controlled with Pressure -Treatment Response Procedure Tolerated Well [See Physician Procedure note for Specifics] Pain Scale: 0-10 Numeric [Pain] -Is Patient Pain Free? Yes Debridement Note Post-Debridement Measurements/Treatment NIKA - Nurse 2 - General Ulcer CM Notes Start: 05/02/18 10:48 Freq: Status: Active Protocol: Activity Type Activity Date Activity User E-Sign Co-Sign Detail Recorded Client Recorded Date Recorded By Document 05/02/18 11:09 DEBORAH [id number] 05/02/18 11:13 DEBORAH 05/02/18 11:09 Wound Center Nurse 2 #2 Left Ischium -Time 11:10 -Correct Patient Yes -Correct Side, Site, Position Yes -Correct Procedure Yes -Procedure Performed Yes -Type of Procedure Debridement -Clinical Debridement Muscle -Post Debridement Size (cm) - Length 4.5 -Post Debridement Size (cm) - Width 6.5 -Post Debridement Size (cm) - Depth 1.5 -Total Square Cm 29.25 -Wound/Ulcer Outcome Not Healed -Ulcer Cleansing Rinsed/ Irrigated with Saline -Foul Odor after Cleansing No -Bioengineered Tissue No -Bleeding Controlled with Pressure -Treatment Response Procedure Tolerated Well #1 Right Ischium -Time 11:10 -Correct Patient Yes -Correct Side, Site, Position Yes -Correct Procedure Yes -Procedure Performed Yes -Type of Procedure Debridement -Clinical Debridement Muscle -Post Debridement Size (cm) - Length 3.5 -Post Debridement Size (cm) - Width 4.1 -Post Debridement Size (cm) - Depth 1.1 -Total Square Cm 14.35 -Wound/Ulcer Outcome Not Healed -Ulcer Cleansing Rinsed/ Irrigated with Saline -Foul Odor after Cleansing No -Bioengineered Tissue No -Bleeding Controlled with Pressure -Treatment Response Procedure Tolerated Well Pain Scale: 0-10 Numeric Is Patient Pain Free? Yes Wound debrided: #1 Right ischial area. Laterality: Right Wound Grade/Stage: IV. Type of Debridement: Excisional debridement Anesthesia Used: 4% Lidocaine Solution Depth: Down to and including healthy tissue, in the subcutaneous layer, to muscle, to bone - bone is palpable but not debrided. Percentage of wound debrided: 100 Instrument Used: 7mm curette Tissue Removed: subcutaneous tissue and muscle. Severity: Fat Layer Exposed - muscle is exposed. bone is palpable but not debrided. Amount of bleeding with debridement: Mild Bleeding Controlled with: Pressure Patient tolerated procedure well - Additional Wound Wound debrided: #2 Left ischial area. Laterality: Left Wound Grade/Stage: IV. Type of Debridement: Excisional debridement Anesthesia Used: 4% Lidocaine Solution Depth: Down to and including healthy tissue, in the subcutaneous layer, to muscle, to bone - bone is palpable but not debrided. Percentage of wound debrided: 100 Instrument Used: 7mm curette Tissue Removed: subcutaneous tissue and muscle. Severity: Fat Layer Exposed - muscle is exposed. bone is palpable but not debrided. Amount of bleeding with debridement: Mild Bleeding Controlled with: Pressure Patient tolerated procedure: Patient tolerated procedure well Assessment/Plan Assessment: 1. Right ischial pressure sore with extension to perineal area, Stage IV. 2. Left ischial pressure sore with extension to the femur, Stage IV. 3. Paraplegia, longstanding. 4. History of MRSA. 5. History of osteomyelitis with multiple prior surgeries. 6. Smoker. Plan: Continue Aquacel silver dressing changes daily to both ischial pressure sores. Encourage nutritional supplementation with protein to help the healing process. Encouraged the patient to stop smoking as it may have deleterious effects on wound healing. Followup 4 weeks.
== END 2018-05-10 23:59 ==
LOC: WC 10:30
PROVIDERS: Family Provider Family Medicine; PCP Family Medicine; Visit Provider Surgery
DX: L89.224 Pressure ulcer of left hip, stage 4 (principal); L89.214 Pressure ulcer of right hip, stage 4; Z86.14 Personal history of Methicillin resistant Staphylococcus aureus infection; G82.20 Paraplegia, unspecified; F17.200 Nicotine dependence, unspecified, uncomplicated
CPT/HCPCS: 11043; 11046

== ENCOUNTER 2018-06-20 10:38 | Outpatient (RCR) | payer MEDICARE, MEDICAID, SELFPAY ==
[2018-06-20 11:03] VITALS: BP 100/60; PULSE 87; RESP 16; TEMP 36
--- NOTE | 2018-06-20 21:46 | PN.PCM_ITS ---
Type of Wound Date of Service: 06/20/18 Chief Complaint: Bilateral ischial pressure sores, Stage IV. History of Wound: Patient has long standing bilateral ischial pressure sores, Stage IV, with the left side extending to the femoral head and the right side extending to the perineal area and the prostate. Surgery would entail quite extensive excision with amputations at a tertiary center. Patient does not want to pursue any heroic surgeries at this time since it is not a guarantee his pressure issues won't recur. With aggressive amputations, his already tenuous balance would be even more disrupted. Today he denies any fever. His appetite is ok. At the present time, we are providing conservative care on a monthly basis. Progress of Wound: Stable with minimal improvement. - Physical Exam Vital Signs Temp Pulse Resp BP 96.8 F L 87 16 100/60 06/20/18 11:03 06/20/18 11:03 06/20/18 11:03 06/20/18 11:03 Wound Measurements and Assessment WC - Nurse 1 - General Ulcer Measurement Start: 06/20/18 11:03 Freq: Status: Active Protocol: Activity Type Activity Date Activity User E-Sign Co-Sign Detail Recorded Client Recorded Date Recorded By Document 06/20/18 11:03 [facility] [id number] 06/20/18 11:17 [facility] 06/20/18 11:03 Wound Center Nurse 1 [Ulcer Assessment] #6 Left Ischium -Combined with other wound No -Current Size (cm) - Length 5 -Current Size (cm) - Width 6.8 -Current Size (cm) - Depth 0.8 -Total Square Cm 34.0 -Epithelialization None Present -Undermining/Tunneling Yes -Undermining/Tunneling Starts (O' 11 clock) -Undermining/Tunneling Ends (O'clock) 19 -Maximum Distance (cm) 2.1 -Exudate Amt Medium (34-66%) -Exudate Type Serous -Wound Margin Fibrotic Scar, Thickened Scar -Granulation Amt Small (1-33%) -Granulation Quality Pale Red -Slough/Fibrin Yes -Necrosis Amt Small (1-33%) -Necrotic Tissue Type Adherent Slough -Structure Exposed Fat Layer Exposed -Texture (Steffi-wound Skin Appearance) Scarring -Moisture (Steffi-wound Skin Appearance Maceration ) -Color (Steffi-wound Skin Appearance) Erythema -Temperature (Steffi-wound Skin No Abnormality Appearance) (Pt Warm) -Tenderness on Palpation (Steffi-wound No Skin Appearance) -Ulcer Cleansing Rinsed/ Irrigated with Saline -Foul Odor after Cleansing No -Anesthetic Used 5% Lidocaine Gel #5 Right Ischium -Combined with other wound No -Current Size (cm) - Length 4.9 -Current Size (cm) - Width 3.5 -Current Size (cm) - Depth 1.2 -Total Square Cm 17.15 -Tunneling Yes -Tunneling Position (O'clock) 10 -Tunneling Distance (cm) 7.3 -Classification - Thickness Full Thickness with Exposed Support Structure -Exudate Amt Medium (34-66%) -Exudate Type Serous -Wound Margin Fibrotic Scar, Thickened Scar -Granulation Amt Small (1-33%) -Granulation Quality Pale [place] -Slough/Fibrin Yes -Necrosis Amt Small (1-33%) -Necrotic Tissue Type Adherent Slough -Structure Exposed Fat Layer Exposed -Texture (Steffi-wound Skin Appearance) Scarring -Moisture (Steffi-wound Skin Appearance Maceration ) -Color (Steffi-wound Skin Appearance) Erythema -Temperature (Steffi-wound Skin No Abnormality Appearance) (Pt Warm) -Tenderness on Palpation (Steffi-wound No Skin Appearance) -Ulcer Cleansing Rinsed/ Irrigated with Saline -Foul Odor after Cleansing No -Anesthetic Used 5% Lidocaine Gel WC - Nurse 2 - General Ulcer CM Notes Start: 06/20/18 11:03 Freq: Status: Active Protocol: Activity Type Activity Date Activity User E-Sign Co-Sign Detail Recorded Client Recorded Date Recorded By Document 06/20/18 11:33 DEBORAH [id number] 06/20/18 11:34 DEBORAH 06/20/18 11:33 Wound Center Nurse 2 [Procedure/Treatment] #6 Left Ischium -Time 11:34 -Correct Patient Yes -Correct Side, Site, Position Yes -Correct Procedure Yes -Procedure Performed Yes -Type of Procedure Debridement -Clinical Debridement Muscle -Post Debridement Size (cm) - Length 5.1 -Post Debridement Size (cm) - Width 6.8 -Post Debridement Size (cm) - Depth 0.8 -Total Square Cm 34.68 -Wound/Ulcer Outcome Not Healed -Ulcer Cleansing Rinsed/ Irrigated with Saline -Foul Odor after Cleansing No -Bioengineered Tissue No -Bleeding Controlled with Pressure -Treatment Response Procedure Tolerated Well #5 Right Ischium -Time 11:34 -Correct Patient Yes -Correct Side, Site, Position Yes -Correct Procedure Yes -Procedure Performed Yes -Type of Procedure Debridement -Clinical Debridement Muscle -Post Debridement Size (cm) - Length 5 -Post Debridement Size (cm) - Width 3.5 -Post Debridement Size (cm) - Depth 1.2 -Total Square Cm 17.5 -Wound/Ulcer Outcome Not Healed -Ulcer Cleansing Rinsed/ Irrigated with Saline -Foul Odor after Cleansing No -Bioengineered Tissue No -Bleeding Controlled with Pressure -Treatment Response Procedure Tolerated Well [See Physician Procedure note for Specifics] Pain Scale: 0-10 Numeric [Pain] -Is Patient Pain Free? Yes Debridement Note Post-Debridement Measurements/Treatment WC - Nurse 2 - General Ulcer CM Notes Start: 06/20/18 11:03 Freq: Status: Active Protocol: Activity Type Activity Date Activity User E-Sign Co-Sign Detail Recorded Client Recorded Date Recorded By Document 06/20/18 11:33 DEBORAH [id number] 06/20/18 11:34 DEBORAH 06/20/18 11:33 Wound Center Nurse 2 #6 Left Ischium -Time 11:34 -Correct Patient Yes -Correct Side, Site, Position Yes -Correct Procedure Yes -Procedure Performed Yes -Type of Procedure Debridement -Clinical Debridement Muscle -Post Debridement Size (cm) - Length 5.1 -Post Debridement Size (cm) - Width 6.8 -Post Debridement Size (cm) - Depth 0.8 -Total Square Cm 34.68 -Wound/Ulcer Outcome Not Healed -Ulcer Cleansing Rinsed/ Irrigated with Saline -Foul Odor after Cleansing No -Bioengineered Tissue No -Bleeding Controlled with Pressure -Treatment Response Procedure Tolerated Well #5 Right Ischium -Time 11:34 -Correct Patient Yes -Correct Side, Site, Position Yes -Correct Procedure Yes -Procedure Performed Yes -Type of Procedure Debridement -Clinical Debridement Muscle -Post Debridement Size (cm) - Length 5 -Post Debridement Size (cm) - Width 3.5 -Post Debridement Size (cm) - Depth 1.2 -Total Square Cm 17.5 -Wound/Ulcer Outcome Not Healed -Ulcer Cleansing Rinsed/ Irrigated with Saline -Foul Odor after Cleansing No -Bioengineered Tissue No -Bleeding Controlled with Pressure -Treatment Response Procedure Tolerated Well Pain Scale: 0-10 Numeric Is Patient Pain Free? Yes Wound debrided: #5 Right ischial area. Laterality: Right Wound Grade/Stage: IV. Type of Debridement: Excisional debridement Anesthesia Used: 4% Lidocaine Solution Depth: Down to and including healthy tissue, in the subcutaneous layer, to muscle, to bone - bone is palpable but not debrided. Percentage of wound debrided: 100 Instrument Used: 7mm curette Tissue Removed: subcutaneous tissue and muscle. Severity: Fat Layer Exposed - muscle is exposed. bone is palpable but not debrided. Amount of bleeding with debridement: Mild Bleeding Controlled with: Pressure Patient tolerated procedure well - Additional Wound Wound debrided: #6 Left ischial area. Laterality: Left Wound Grade/Stage: IV. Type of Debridement: Excisional debridement Anesthesia Used: 4% Lidocaine Solution Depth: Down to and including healthy tissue, in the subcutaneous layer, to muscle, to bone - bone is palpable but not debrided. Percentage of wound debrided: 100 Instrument Used: 7mm curette Tissue Removed: subcutaneous tissue and muscle. Severity: Fat Layer Exposed - muscle is exposed. bone is palpable but not debrided. Amount of bleeding with debridement: Mild Bleeding Controlled with: Pressure Patient tolerated procedure: Patient tolerated procedure well Assessment/Plan Assessment: 1. Right ischial pressure sore with extension to perineal area, Stage IV. 2. Left ischial pressure sore with extension to the femur, Stage IV. 3. Paraplegia, longstanding. 4. History of MRSA. 5. History of osteomyelitis with multiple prior surgeries. 6. Smoker. Plan: Continue Aquacel silver dressing changes daily to both ischial pressure sores. Encourage nutritional supplementation with protein to help the healing process. Encouraged the patient to stop smoking as it may have deleterious effects on wound healing. Followup 4 weeks.
== END 2018-07-10 23:59 ==
LOC: WC 10:38
PROVIDERS: Family Provider Family Medicine; PCP Family Medicine; Visit Provider Surgery
DX: L89.224 Pressure ulcer of left hip, stage 4 (principal); L89.214 Pressure ulcer of right hip, stage 4; G82.20 Paraplegia, unspecified; Z86.14 Personal history of Methicillin resistant Staphylococcus aureus infection; F17.200 Nicotine dependence, unspecified, uncomplicated
CPT/HCPCS: 11043; 11046

== ENCOUNTER 2018-07-25 09:11 | Outpatient (RCR) | payer MEDICARE, MEDICAID, SELFPAY ==
[2018-07-11 01:36] VITALS: BP 100/60; PULSE 87; RESP 16; TEMP 36
[2018-07-25 11:14] VITALS: BP 108/68; PULSE 94; RESP 18; TEMP 36.4
--- NOTE | 2018-07-25 13:14 | PCM.WC.PN ---
(1) Right ischial pressure sore, stage 4 Status: Chronic Current Visit: Yes Code(s): L89.314 - Pressure ulcer of right buttock, stage 4 (2) left ischial pressure sore, stage IV Status: Chronic Current Visit: Yes Code(s): L89.324 - Pressure ulcer of left buttock, stage 4 Comment: extending to the left femur (3) Chronic paraplegia Status: Chronic Current Visit: Yes Code(s): G82.20 - Paraplegia, unspecified (4) History of osteomyelitis Status: Chronic Current Visit: No Code(s): Z87.39 - Personal history of other diseases of the musculoskeletal system and connective tissue (5) History of MRSA infection Status: Chronic Current Visit: No Code(s): Z86.14 - Personal history of Methicillin resistant Staphylococcus aureus infection Type of Wound Date of Service: 07/25/18 Chief Complaint: Bilateral ischial pressure sores, Stage IV. History of Wound: Patient has long standing bilateral ischial pressure sores, Stage IV, with the left side extending to the femoral head and the right side extending to the perineal area and the prostate. Surgery would entail quite extensive excision with amputations at a tertiary center. Patient does not want to pursue any heroic surgeries at this time since it is not a guarantee his pressure issues won't recur. With aggressive amputations, his already tenuous balance would be even more disrupted. Today he denies any fever. His appetite is ok. At the present time, we are providing conservative care on a monthly basis. Progress of Wound: No change. - Physical Exam Vital Signs Temp Pulse Resp BP 97.5 F L 94 18 108/68 07/25/18 11:14 07/25/18 11:14 07/25/18 11:14 07/25/18 11:14 General: Alert, Oriented x3 HEENT: Atraumatic Extremities: No edema Skin: Ulcer/ Wound - Bilateral stage IV ishial area ulcers Wound Measurements and Assessment WC - Nurse 1 - General Ulcer Measurement Start: 07/25/18 11:14 Freq: Status: Active Protocol: Activity Type Activity Date Activity User E-Sign Co-Sign Detail Recorded Client Recorded Date Recorded By Document 07/25/18 11:14 MW [id number] 07/25/18 11:28 MW 07/25/18 11:14 Wound Center Nurse 1 [Ulcer Assessment] #6 Left Ischium -Combined with other wound No -Current Size (cm) - Length 4.5 -Current Size (cm) - Width 6.0 -Current Size (cm) - Depth 1.4 -Total Square Cm 27.00 -Date of Last Picture (Recall this 07/25/18 field) -Photo Taken Yes -Undermining/Tunneling Yes -Undermining/Tunneling Starts (O' 12 clock) -Undermining/Tunneling Ends (O'clock) 12 -Maximum Distance (cm) 3.9 -Classification - Thickness Full Thickness without Exposed Support Structure -Exudate Amt Medium (34-66%) -Exudate Type Serosanguineous -Wound Margin Epibole -Granulation Amt None Present (0 %) -Granulation Quality N/A -Slough/Fibrin Yes -Necrosis Amt Large (67-100%) -Necrotic Tissue Type Adherent Slough -Structure Exposed None/Limited to Skin Breakdown -Texture (Steffi-wound Skin Appearance) Assessed Induration -Moisture (Steffi-wound Skin Appearance Assessed ) Weeping -Color (Steffi-wound Skin Appearance) Assessed Erythema -Temperature (Steffi-wound Skin No Abnormality Appearance) (Pt Warm) -Tenderness on Palpation (Steffi-wound No Skin Appearance) -Ulcer Cleansing Rinsed/ Irrigated with Saline #5 Right Ischium -Combined with other wound No -Current Size (cm) - Length 4.5 -Current Size (cm) - Width 4.5 -Current Size (cm) - Depth 1.6 -Total Square Cm 20.25 -Photo Taken Yes -Epithelialization None Present -Tunneling No -Undermining/Tunneling Yes -Undermining/Tunneling Starts (O' 3 clock) -Undermining/Tunneling Ends (O'clock) 9 -Maximum Distance (cm) 0.6 -Circular Undermining No -Classification - Thickness Full Thickness without Exposed Support Structure -Exudate Amt Large (67-100%) -Exudate Type Serosanguineous -Wound Margin Thickened & Rolled Under -Granulation Quality N/A -Necrosis Amt Large (67-100%) -Necrotic Tissue Type Adherent Slough -Structure Exposed N/A -Texture (Steffi-wound Skin Appearance) Assessed Scarring Rash -Moisture (Steffi-wound Skin Appearance No Abnormality ) Assessed -Color (Steffi-wound Skin Appearance) Assessed Erythema -Temperature (Steffi-wound Skin No Abnormality Appearance) (Pt Warm) -Ulcer Cleansing Rinsed/ Irrigated with Saline -Foul Odor after Cleansing No [Edema Assessment] -Lower Limb Edema Present No WC - Nurse 2 - General Ulcer CM Notes Start: 07/25/18 11:14 Freq: Status: Active Protocol: Activity Type Activity Date Activity User E-Sign Co-Sign Detail Recorded Client Recorded Date Recorded By Document 07/25/18 11:39 [id number] 07/25/18 11:43 07/25/18 11:39 Wound Center Nurse 2 [Procedure/Treatment] #6 Left Ischium -Time 11:41 -Correct Patient Yes -Correct Side, Site, Position Yes -Correct Procedure Yes -Procedure Performed Yes -Type of Procedure Debridement -Clinical Debridement Muscle -Post Debridement Size (cm) - Length 4.5 -Post Debridement Size (cm) - Width 5.5 -Post Debridement Size (cm) - Depth 1.4 -Total Square Cm 24.75 -Wound/Ulcer Outcome Not Healed -Ulcer Cleansing Rinsed/ Irrigated with Saline -Foul Odor after Cleansing No -Bioengineered Tissue No -Bleeding Controlled with Pressure -Treatment Response Procedure Tolerated Well #5 Right Ischium -Time 11:42 -Correct Patient Yes -Correct Side, Site, Position Yes -Correct Procedure Yes -Procedure Performed Yes -Type of Procedure Debridement -Clinical Debridement Muscle -Post Debridement Size (cm) - Length 3 -Post Debridement Size (cm) - Width 5.5 -Post Debridement Size (cm) - Depth 1.6 -Total Square Cm 16.5 -Wound/Ulcer Outcome Not Healed -Ulcer Cleansing Rinsed/ Irrigated with Saline -Foul Odor after Cleansing No -Bioengineered Tissue No -Bleeding Controlled with Pressure -Treatment Response Procedure Tolerated Well [See Physician Procedure note for Specifics] Pain Scale: 0-10 Numeric [Pain] -Is Patient Pain Free? Yes Neurological: Neuro grossly intact Psych/Mental Status: Appropriate, Flat Affect Debridement Note Post-Debridement Measurements/Treatment WC - Nurse 2 - General Ulcer CM Notes Start: 07/25/18 11:14 Freq: Status: Active Protocol: Activity Type Activity Date Activity User E-Sign Co-Sign Detail Recorded Client Recorded Date Recorded By Document 07/25/18 11:39 [id number] 07/25/18 11:43 07/25/18 11:39 Wound Center Nurse 2 #6 Left Ischium -Time 11:41 -Correct Patient Yes -Correct Side, Site, Position Yes -Correct Procedure Yes -Procedure Performed Yes -Type of Procedure Debridement -Clinical Debridement Muscle -Post Debridement Size (cm) - Length 4.5 -Post Debridement Size (cm) - Width 5.5 -Post Debridement Size (cm) - Depth 1.4 -Total Square Cm 24.75 -Wound/Ulcer Outcome Not Healed -Ulcer Cleansing Rinsed/ Irrigated with Saline -Foul Odor after Cleansing No -Bioengineered Tissue No -Bleeding Controlled with Pressure -Treatment Response Procedure Tolerated Well #5 Right Ischium -Time 11:42 -Correct Patient Yes -Correct Side, Site, Position Yes -Correct Procedure Yes -Procedure Performed Yes -Type of Procedure Debridement -Clinical Debridement Muscle -Post Debridement Size (cm) - Length 3 -Post Debridement Size (cm) - Width 5.5 -Post Debridement Size (cm) - Depth 1.6 -Total Square Cm 16.5 -Wound/Ulcer Outcome Not Healed -Ulcer Cleansing Rinsed/ Irrigated with Saline -Foul Odor after Cleansing No -Bioengineered Tissue No -Bleeding Controlled with Pressure -Treatment Response Procedure Tolerated Well Pain Scale: 0-10 Numeric Is Patient Pain Free? Yes Wound debrided: Right ishial area Laterality: Right Type of Debridement: Excisional debridement Anesthesia Used: 4% Lidocaine Solution Depth: in the subcutaneous layer, to muscle - Able to palpate bone, no bone debrided Percentage of wound debrided: 100 Instrument Used: 7mm curette Tissue Removed: Subcutaneous tissue and slough Severity: Fat Layer Exposed - Muscle and bone palpated. Amount of bleeding with debridement: None Bleeding Controlled with: Pressure Patient tolerated procedure well - Additional Wound Wound debrided: Left ishial area Laterality: Left Type of Debridement: Excisional debridement Anesthesia Used: 4% Lidocaine Solution Depth: Down to and including healthy tissue, in the subcutaneous layer, to muscle - Able to palpate muscle and bone, none debrided Instrument Used: 7mm curette Amount of bleeding with debridement: Mild Bleeding Controlled with: Pressure Patient tolerated procedure: Patient tolerated procedure well Assessment/Plan Active Problems Right ischial pressure sore, stage 4 (Chronic) Chronic paraplegia (Chronic) left ischial pressure sore, stage IV (Chronic) extending to the left femur Assessment: 1. Right ischial pressure sore with extension to perineal area, Stage IV. 2. Left ischial pressure sore with extension to the femur, Stage IV. 3. Paraplegia, longstanding. 4. History of MRSA. 5. History of osteomyelitis with multiple prior surgeries. 6. Smoker. Plan: Continue Aquacel silver dressing changes daily to both ischial pressure sores. Encourage nutritional supplementation with protein to help the healing process. Encouraged the patient to stop smoking as it may have deleterious effects on wound healing. Followup 4 weeks. Code Visit 111xxx-113xx: [id number] Manisha musc/fascia 20 sq cm/< Add On Codes: [id number] Manisha musc/fascia add-on - x 2
--- NOTE | 2018-07-26 10:18 | PN.PCM_ITS ---
(1) Right ischial pressure sore, stage 4 Status: Chronic Current Visit: Yes Code(s): L89.314 - Pressure ulcer of right buttock, stage 4 (2) left ischial pressure sore, stage IV Status: Chronic Current Visit: Yes Code(s): L89.324 - Pressure ulcer of left buttock, stage 4 Comment: extending to the left femur (3) Chronic paraplegia Status: Chronic Current Visit: Yes Code(s): G82.20 - Paraplegia, unspecified (4) History of osteomyelitis Status: Chronic Current Visit: No Code(s): Z87.39 - Personal history of other diseases of the musculoskeletal system and connective tissue (5) History of MRSA infection Status: Chronic Current Visit: No Code(s): Z86.14 - Personal history of Methicillin resistant Staphylococcus aureus infection Type of Wound Date of Service: 07/25/18 Chief Complaint: Bilateral ischial pressure sores, Stage IV. History of Wound: Patient has long standing bilateral ischial pressure sores, Stage IV, with the left side extending to the femoral head and the right side ex tending to the perineal area and the prostate. Surgery would entail quite extensive excision with amputations at a tertiary center. Patient does not want to pursue any heroic surgeries at this time since it is not a guarantee his pressure issues won't recur. With aggressive amputations, his already tenuous balance would be even more disrupted. Today he denies any fever. His appetite is ok. At the present time, we are providing conservative care on a monthly basis. Progress of Wound: No change. - Physical Exam Vital Signs Temp Pulse Resp BP 97.5 F L 94 18 108/68 07/25/18 11:14 07/25/18 11:14 07/25/18 11:14 07/25/18 11:14 General: Alert, Oriented x3 HEENT: Atraumatic Extremities: No edema Skin: Ulcer/ Wound - Bilateral stage IV ishial area ulcers Wound Measurements and Assessment WC - Nurse 1 - General Ulcer Measurement Start: 07/25/18 11:14 Freq: Status: Active Protocol: Activity Type Activity Date Activity User E-Sign Co-Sign Detail Recorded Client Recorded Date Recorded By Document 07/25/18 11:14 MW [id number] 07/25/18 11:28 MW 07/25/18 11:14 Wound Center Nurse 1 [Ulcer Assessment] #6 Left Ischium -Combined with other wound No -Current Size (cm) - Length 4.5 -Current Size (cm) - Width 6.0 -Current Size (cm) - Depth 1.4 -Total Square Cm 27.00 -Date of Last Picture (Recall this 07/25/18 field) -Photo Taken Yes -Undermining/Tunneling Yes -Undermining/Tunneling Starts (O' 12 clock) -Undermining/Tunneling Ends (O'clock) 12 -Maximum Distance (cm) 3.9 -Classification - Thickness Full Thickness without Exposed Support Structure -Exudate Amt Medium (34-66%) -Exudate Type Serosanguineous -Wound Margin Epibole -Granulation Amt None Present (0 %) -Granulation Quality N/A -Slough/Fibrin Yes -Necrosis Amt Large (67-100%) -Necrotic Tissue Type Adherent Slough -Structure Exposed None/Limited to Skin Breakdown -Texture (Steffi-wound Skin Appearance) Assessed Induration -Moisture (Steffi-wound Skin Appearance Assessed ) Weeping -Color (Steffi-wound Skin Appearance) Assessed Erythema -Temperature (Steffi-wound Skin No Abnormality Appearance) (Pt Warm) -Tenderness on Palpation (Steffi-wound No Skin Appearance) -Ulcer Cleansing Rinsed/ Irrigated with Saline #5 Right Ischium -Combined with other wound No -Current Size (cm) - Length 4.5 -Current Size (cm) - Width 4.5 -Current Size (cm) - Depth 1.6 -Total Square Cm 20.25 -Photo Taken Yes -Epithelialization None Present -Tunneling No -Undermining/Tunneling Yes -Undermining/Tunneling Starts (O' 3 clock) -Undermining/Tunneling Ends (O'clock) 9 -Maximum Distance (cm) 0.6 -Circular Undermining No -Classification - Thickness Full Thickness without Exposed Support Structure -Exudate Amt Large (67-100%) -Exudate Type Serosanguineous -Wound Margin Thickened & Rolled Under -Granulation Quality N/A -Necrosis Amt Large (67-100%) -Necrotic Tissue Type Adherent Slough -Structure Exposed N/A -Texture (Steffi-wound Skin Appearance) Assessed Scarring Rash -Moisture (Steffi-wound Skin Appearance No Abnormality ) Assessed -Color (Steffi-wound Skin Appearance) Assessed Erythema -Temperature (Steffi-wound Skin No Abnormality Appearance) (Pt Warm) -Ulcer Cleansing Rinsed/ Irrigated with Saline -Foul Odor after Cleansing No [Edema Assessment] -Lower Limb Edema Present No WC - Nurse 2 - General Ulcer CM Notes Start: 07/25/18 11:14 Freq: Status: Active Protocol: Activity Type Activity Date Activity User E-Sign Co-Sign Detail Recorded Client Recorded Date Recorded By Document 07/25/18 11:39 [id number] 07/25/18 11:43 07/25/18 11:39 Wound Center Nurse 2 [Procedure/Treatment] #6 Left Ischium -Time 11:41 -Correct Patient Yes -Correct Side, Site, Position Yes -Correct Procedure Yes -Procedure Performed Yes -Type of Procedure Debridement -Clinical Debridement Muscle -Post Debridement Size (cm) - Length 4.5 -Post Debridement Size (cm) - Width 5.5 -Post Debridement Size (cm) - Depth 1.4 -Total Square Cm 24.75 -Wound/Ulcer Outcome Not Healed -Ulcer Cleansing Rinsed/ Irrigated with Saline -Foul Odor after Cleansing No -Bioengineered Tissue No -Bleeding Controlled with Pressure -Treatment Response Procedure Tolerated Well #5 Right Ischium -Time 11:42 -Correct Patient Yes -Correct Side, Site, Position Yes -Correct Procedure Yes -Procedure Performed Yes -Type of Procedure Debridement -Clinical Debridement Muscle -Post Debridement Size (cm) - Length 3 -Post Debridement Size (cm) - Width 5.5 -Post Debridement Size (cm) - Depth 1.6 -Total Square Cm 16.5 -Wound/Ulcer Outcome Not Healed -Ulcer Cleansing Rinsed/ Irrigated with Saline -Foul Odor after Cleansing No -Bioengineered Tissue No -Bleeding Controlled with Pressure -Treatment Response Procedure Tolerated Well [See Physician Procedure note for Specifics] Pain Scale: 0-10 Numeric [Pain] -Is Patient Pain Free? Yes Neurological: Neuro grossly intact Psych/Mental Status: Appropriate, Flat Affect Debridement Note Post-Debridement Measurements/Treatment WC - Nurse 2 - General Ulcer CM Notes Start: 07/25/18 11:14 Freq: Status: Active Protocol: Activity Type Activity Date Activity User E-Sign Co-Sign Detail Recorded Client Recorded Date Recorded By Document 07/25/18 11:39 [id number] 07/25/18 11:43 07/25/18 11:39 Wound Center Nurse 2 #6 Left Ischium -Time 11:41 -Correct Patient Yes -Correct Side, Site, Position Yes -Correct Procedure Yes -Procedure Performed Yes -Type of Procedure Debridement -Clinical Debridement Muscle -Post Debridement Size (cm) - Length 4.5 -Post Debridement Size (cm) - Width 5.5 -Post Debridement Size (cm) - Depth 1.4 -Total Square Cm 24.75 -Wound/Ulcer Outcome Not Healed -Ulcer Cleansing Rinsed/ Irrigated with Saline -Foul Odor after Cleansing No -Bioengineered Tissue No -Bleeding Controlled with Pressure -Treatment Response Procedure Tolerated Well #5 Right Ischium -Time 11:42 -Correct Patient Yes -Correct Side, Site, Position Yes -Correct Procedure Yes -Procedure Performed Yes -Type of Procedure Debridement -Clinical Debridement Muscle -Post Debridement Size (cm) - Length 3 -Post Debridement Size (cm) - Width 5.5 -Post Debridement Size (cm) - Depth 1.6 -Total Square Cm 16.5 -Wound/Ulcer Outcome Not Healed -Ulcer Cleansing Rinsed/ Irrigated with Saline -Foul Odor after Cleansing No -Bioengineered Tissue No -Bleeding Controlled with Pressure -Treatment Response Procedure Tolerated Well Pain Scale: 0-10 Numeric Is Patient Pain Free? Yes Wound debrided: Right ishial area Laterality: Right Type of Debridement: Excisional debridement Anesthesia Used: 4% Lidocaine Solution Depth: in the subcutaneous layer, to muscle - Able to palpate bone, no bone debrided Percentage of wound debrided: 100 Instrument Used: 7mm curette Tissue Removed: Subcutaneous tissue and slough Severity: Fat Layer Exposed - Muscle and bone palpated. Amount of bleeding with debridement: None Bleeding Controlled with: Pressure Patient tolerated procedure well - Additional Wound Wound debrided: Left ishial area Laterality: Left Type of Debridement: Excisional debridement Anesthesia Used: 4% Lidocaine Solution Depth: Down to and including healthy tissue, in the subcutaneous layer, to muscle - Able to palpate muscle and bone, none debrided Instrument Used: 7mm curette Amount of bleeding with debridement: Mild Bleeding Controlled with: Pressure Patient tolerated procedure: Patient tolerated procedure well Assessment/Plan Active Problems Right ischial pressure sore, stage 4 (Chronic) Chronic paraplegia (Chronic) left ischial pressure sore, stage IV (Chronic) extending to the left femur Assessment: 1. Right ischial pressure sore with extension to perineal area, Stage IV. 2. Left ischial pressure sore with extension to the femur, Stage IV. 3. Paraplegia, longstanding. 4. History of MRSA. 5. History of osteomyelitis with multiple prior surgeries. 6. Smoker. Plan: Continue Aquacel silver dressing changes daily to both ischial pressure sores. Encourage nutritional supplementation with protein to help the healing process. Encouraged the patient to stop smoking as it may have deleterious effects on wound healing. Followup 4 weeks. Code Visit 111xxx-113xx: 77695 Manisha musc/fascia 20 sq cm/< Add On Codes: [id number] Manisha musc/fascia add-on - x 2
== END 2018-08-10 23:59 ==
LOC: WC 09:11
PROVIDERS: Family Provider Family Medicine; PCP Family Medicine; Visit Provider Surgery
DX: L89.214 Pressure ulcer of right hip, stage 4 (principal); L89.224 Pressure ulcer of left hip, stage 4; G82.20 Paraplegia, unspecified; Z87.39 Personal history of other diseases of the musculoskeletal system and connective tissue; Z86.14 Personal history of Methicillin resistant Staphylococcus aureus infection
CPT/HCPCS: 11043; 11046

== ENCOUNTER 2018-08-22 08:28 | Outpatient (RCR) | payer MEDICARE, MEDICAID, SELFPAY ==
[2018-08-11 01:32] VITALS: BP 108/68; PULSE 94; RESP 18; TEMP 36.4
[2018-08-22 10:47] VITALS: BP 136/87; PULSE 110; RESP 18; TEMP 36.4
--- NOTE | 2018-08-22 17:43 | PCM.WC.PN ---
Type of Wound Date of Service: 08/22/18 Chief Complaint: Bilateral ischial pressure sores, Stage IV. History of Wound: Patient has long standing bilateral ischial pressure sores, Stage IV, with the left side extending to the femoral head and the right side extending to the perineal area and the prostate. Surgery would entail quite extensive excision with amputations at a tertiary center. Patient does not want to pursue any heroic surgeries at this time since it is not a guarantee his pressure issues won't recur. With aggressive amputations, his already tenuous balance would be even more disrupted. Today he denies any fever. His appetite is ok. At the present time, we are providing conservative care on a monthly basis. Progress of Wound: Stable with minimal improvement. - Physical Exam Vital Signs Temp Pulse Resp BP 97.6 F L 110 H 18 136/87 H 08/22/18 10:47 08/22/18 10:47 08/22/18 10:47 08/22/18 10:47 Wound Measurements and Assessment WC - Nurse 1 - General Ulcer Measurement Start: 08/22/18 10:47 Freq: Status: Active Protocol: Activity Type Activity Date Activity User E-Sign Co-Sign Detail Recorded Client Recorded Date Recorded By Document 08/22/18 10:47 DL [id number] 08/22/18 10:56 DL 08/22/18 10:47 Wound Center Nurse 1 [Ulcer Assessment] #6 Left Ischium -Current Size (cm) - Length 4.8 -Current Size (cm) - Width 6.9 -Current Size (cm) - Depth 0.9 -Total Square Cm 33.12 -Undermining/Tunneling Starts (O' 12 clock) -Undermining/Tunneling Ends (O'clock) 5 -Maximum Distance (cm) 1.4 -Circular Undermining Yes -Exudate Amt Medium (34-66%) -Exudate Type Serosanguineous -Wound Margin Thickened & Rolled Under -Granulation Amt Medium (34-66%) -Granulation Quality [place] Red -Necrosis Amt Medium (34-66%) -Necrotic Tissue Type Adherent Slough -Structure Exposed N/A -Texture (Steffi-wound Skin Appearance) Scarring -Moisture (Steffi-wound Skin Appearance No Abnormality ) -Color (Steffi-wound Skin Appearance) Rubor -Temperature (Steffi-wound Skin No Abnormality Appearance) (Pt Warm) -Ulcer Cleansing Rinsed/ Irrigated with Saline -Foul Odor after Cleansing No #5 Right Ischium -Current Size (cm) - Length 4.2 -Current Size (cm) - Width 3.5 -Current Size (cm) - Depth 1.6 -Total Square Cm 14.70 -Photo Taken No -Tunneling Position (O'clock) 1 -Tunneling Distance (cm) 6.8 -Exudate Amt Medium (34-66%) -Exudate Type Serosanguineous -Wound Margin Thickened & Rolled Under -Granulation Amt Medium (34-66%) -Granulation Quality [place] Red -Necrosis Amt Medium (34-66%) -Necrotic Tissue Type Adherent Slough -Structure Exposed N/A -Texture (Steffi-wound Skin Appearance) Scarring -Moisture (Steffi-wound Skin Appearance No Abnormality ) -Color (Steffi-wound Skin Appearance) No Abnormality -Temperature (Steffi-wound Skin No Abnormality Appearance) (Pt Warm) -Ulcer Cleansing Wound Cleanser -Foul Odor after Cleansing No WC - Nurse 2 - General Ulcer CM Notes Start: 08/22/18 10:47 Freq: Status: Active Protocol: Activity Type Activity Date Activity User E-Sign Co-Sign Detail Recorded Client Recorded Date Recorded By Document 08/22/18 11:37 DEBORAH [id number] 08/22/18 11:45 DEBORAH 08/22/18 11:37 Wound Center Nurse 2 [Procedure/Treatment] #6 Left Ischium -Time 11:38 -Correct Patient Yes -Correct Side, Site, Position Yes -Correct Procedure Yes -Procedure Performed Yes -Type of Procedure Debridement -Clinical Debridement Muscle -Post Debridement Size (cm) - Length 4.8 -Post Debridement Size (cm) - Width 7 -Post Debridement Size (cm) - Depth 1 -Total Square Cm 33.6 -Wound/Ulcer Outcome Not Healed -Ulcer Cleansing Rinsed/ Irrigated with Saline -Foul Odor after Cleansing No -Bioengineered Tissue No -Bleeding Controlled with Pressure -Treatment Response Procedure Tolerated Well #5 Right Ischium -Time 11:38 -Correct Patient Yes -Correct Side, Site, Position Yes -Correct Procedure Yes -Procedure Performed Yes -Type of Procedure Debridement -Clinical Debridement Muscle -Post Debridement Size (cm) - Length 4.3 -Post Debridement Size (cm) - Width 3.5 -Post Debridement Size (cm) - Depth 1.6 -Total Square Cm 15.05 -Wound/Ulcer Outcome Not Healed -Ulcer Cleansing Rinsed/ Irrigated with Saline -Foul Odor after Cleansing No -Bioengineered Tissue No -Bleeding Controlled with Pressure -Treatment Response Procedure Tolerated Well [See Physician Procedure note for Specifics] Pain Scale: 0-10 Numeric [Pain] -Is Patient Pain Free? Yes Debridement Note Post-Debridement Measurements/Treatment WC - Nurse 2 - General Ulcer CM Notes Start: 08/22/18 10:47 Freq: Status: Active Protocol: Activity Type Activity Date Activity User E-Sign Co-Sign Detail Recorded Client Recorded Date Recorded By Document 08/22/18 11:37 DEBORAH [id number] 08/22/18 11:45 DEBORAH 08/22/18 11:37 Wound Center Nurse 2 #6 Left Ischium -Time 11:38 -Correct Patient Yes -Correct Side, Site, Position Yes -Correct Procedure Yes -Procedure Performed Yes -Type of Procedure Debridement -Clinical Debridement Muscle -Post Debridement Size (cm) - Length 4.8 -Post Debridement Size (cm) - Width 7 -Post Debridement Size (cm) - Depth 1 -Total Square Cm 33.6 -Wound/Ulcer Outcome Not Healed -Ulcer Cleansing Rinsed/ Irrigated with Saline -Foul Odor after Cleansing No -Bioengineered Tissue No -Bleeding Controlled with Pressure -Treatment Response Procedure Tolerated Well #5 Right Ischium -Time 11:38 -Correct Patient Yes -Correct Side, Site, Position Yes -Correct Procedure Yes -Procedure Performed Yes -Type of Procedure Debridement -Clinical Debridement Muscle -Post Debridement Size (cm) - Length 4.3 -Post Debridement Size (cm) - Width 3.5 -Post Debridement Size (cm) - Depth 1.6 -Total Square Cm 15.05 -Wound/Ulcer Outcome Not Healed -Ulcer Cleansing Rinsed/ Irrigated with Saline -Foul Odor after Cleansing No -Bioengineered Tissue No -Bleeding Controlled with Pressure -Treatment Response Procedure Tolerated Well Pain Scale: 0-10 Numeric Is Patient Pain Free? Yes Wound debrided: #5 Right ischial area. Laterality: Right Wound Grade/Stage: IV. Type of Debridement: Excisional debridement Anesthesia Used: 4% Lidocaine Solution Depth: Down to and including healthy tissue, in the subcutaneous layer, to muscle, to bone - bone is palpable but not debrided. Percentage of wound debrided: 100 Instrument Used: 7mm curette Tissue Removed: subcutaneous tissue and muscle. Severity: Fat Layer Exposed - muscle is exposed. bone is palpable but not debrided. Amount of bleeding with debridement: Mild Bleeding Controlled with: Pressure Patient tolerated procedure well - Additional Wound Wound debrided: #6 Left ischial area. Laterality: Left Wound Grade/Stage: IV. Type of Debridement: Excisional debridement Anesthesia Used: 4% Lidocaine Solution Depth: Down to and including healthy tissue, in the subcutaneous layer, to muscle, to bone - bone is palpabe but not debrided. Percentage of wound debrided: 100 Instrument Used: 7mm curette Tissue Removed: subcutaneous tissue and muscle. Severity: Fat Layer Exposed - muscle is exposed. bone is palpable but not debrided. Amount of bleeding with debridement: Mild Bleeding Controlled with: Pressure Patient tolerated procedure: Patient tolerated procedure well Assessment/Plan Assessment: 1. Right ischial pressure sore with extension to perineal area, Stage IV. 2. Left ischial pressure sore with extension to the femur, Stage IV. 3. Paraplegia, longstanding. 4. History of MRSA. 5. History of osteomyelitis with multiple prior surgeries. 6. Smoker. Plan: Continue Aquacel silver dressing changes daily to both ischial pressure sores. Encourage nutritional supplementation with protein to help the healing process. Encouraged the patient to stop smoking as it may have deleterious effects on wound healing. Followup 4 weeks.
--- NOTE | 2018-08-24 17:44 | PN.PCM_ITS ---
Type of Wound Date of Service: 08/22/18 Chief Complaint: Bilateral ischial pressure sores, Stage IV. History of Wound: Patient has long standing bilateral ischial pressure sores, Stage IV, with the left side extending to the femoral head and the right side extending to the perineal area and the prostate. Surgery would entail quite extensive excision with amputations at a tertiary center. Patient does not want to pursue any heroic surgeries at this time since it is not a guarantee his pressure issues won't recur. With aggressive amputations, his already tenuous balance would be even more disrupted. Today he denies any fever. His appetite is ok. At the present time, we are providing conservative care on a monthly basis. Progress of Wound: Stable with minimal improvement. - Physical Exam Vital Signs Temp Pulse Resp BP 97.6 F L 110 H 18 136/87 H 08/22/18 10:47 08/22/18 10:47 08/22/18 10:47 08/22/18 10:47 Wound Measurements and Assessment WC - Nurse 1 - General Ulcer Measurement Start: 08/22/18 10:47 Freq: Status: Active Protocol: Activity Type Activity Date Activity User E-Sign Co-Sign Detail Recorded Client Recorded Date Recorded By Document 08/22/18 10:47 DL [id number] 08/22/18 10:56 DL 08/22/18 10:47 Wound Center Nurse 1 [Ulcer Assessment] #6 Left Ischium -Current Size (cm) - Length 4.8 -Current Size (cm) - Width 6.9 -Current Size (cm) - Depth 0.9 -Total Square Cm 33.12 -Undermining/Tunneling Starts (O' 12 clock) -Undermining/Tunneling Ends (O'clock) 5 -Maximum Distance (cm) 1.4 -Circular Undermining Yes -Exudate Amt Medium (34-66%) -Exudate Type Serosanguineous -Wound Margin Thickened & Rolled Under -Granulation Amt Medium (34-66%) -Granulation Quality [place] Red -Necrosis Amt Medium (34-66%) -Necrotic Tissue Type Adherent Slough -Structure Exposed N/A -Texture (Steffi-wound Skin Appearance) Scarring -Moisture (Setffi-wound Skin Appearance No Abnormality ) -Color (Steffi-wound Skin Appearance) Rubor -Temperature (Steffi-wound Skin No Abnormality Appearance) (Pt Warm) -Ulcer Cleansing Rinsed/ Irrigated with Saline -Foul Odor after Cleansing No #5 Right Ischium -Current Size (cm) - Length 4.2 -Current Size (cm) - Width 3.5 -Current Size (cm) - Depth 1.6 -Total Square Cm 14.70 -Photo Taken No -Tunneling Position (O'clock) 1 -Tunneling Distance (cm) 6.8 -Exudate Amt Medium (34-66%) -Exudate Type Serosanguineous -Wound Margin Thickened & Rolled Under -Granulation Amt Medium (34-66%) -Granulation Quality [place] Red -Necrosis Amt Medium (34-66%) -Necrotic Tissue Type Adherent Slough -Structure Exposed N/A -Texture (Steffi-wound Skin Appearance) Scarring -Moisture (Steffi-wound Skin Appearance No Abnormality ) -Color (Steffi-wound Skin Appearance) No Abnormality -Temperature (Steffi-wound Skin No Abnormality Appearance) (Pt Warm) -Ulcer Cleansing Wound Cleanser -Foul Odor after Cleansing No WC - Nurse 2 - General Ulcer CM Notes Start: 08/22/18 10:47 Freq: Status: Active Protocol: Activity Type Activity Date Activity User E-Sign Co-Sign Detail Recorded Client Recorded Date Recorded By Document 08/22/18 11:37 DEBORAH [id number] 08/22/18 11:45 DEBORAH 08/22/18 11:37 Wound Center Nurse 2 [Procedure/Treatment] #6 Left Ischium -Time 11:38 -Correct Patient Yes -Correct Side, Site, Position Yes -Correct Procedure Yes -Procedure Performed Yes -Type of Procedure Debridement -Clinical Debridement Muscle -Post Debridement Size (cm) - Length 4.8 -Post Debridement Size (cm) - Width 7 -Post Debridement Size (cm) - Depth 1 -Total Square Cm 33.6 -Wound/Ulcer Outcome Not Healed -Ulcer Cleansing Rinsed/ Irrigated with Saline -Foul Odor after Cleansing No -Bioengineered Tissue No -Bleeding Controlled with Pressure -Treatment Response Procedure Tolerated Well #5 Right Ischium -Time 11:38 -Correct Patient Yes -Correct Side, Site, Position Yes -Correct Procedure Yes -Procedure Performed Yes -Type of Procedure Debridement -Clinical Debridement Muscle -Post Debridement Size (cm) - Length 4.3 -Post Debridement Size (cm) - Width 3.5 -Post Debridement Size (cm) - Depth 1.6 -Total Square Cm 15.05 -Wound/Ulcer Outcome Not Healed -Ulcer Cleansing Rinsed/ Irrigated with Saline -Foul Odor after Cleansing No -Bioengineered Tissue No -Bleeding Controlled with Pressure -Treatment Response Procedure Tolerated Well [See Physician Procedure note for Specifics] Pain Scale: 0-10 Numeric [Pain] -Is Patient Pain Free? Yes Debridement Note Post-Debridement Measurements/Treatment WC - Nurse 2 - General Ulcer CM Notes Start: 08/22/18 10:47 Freq: Status: Active Protocol: Activity Type Activity Date Activity User E-Sign Co-Sign Detail Recorded Client Recorded Date Recorded By Document 08/22/18 11:37 DEBORAH [id number] 08/22/18 11:45 DEBORAH 08/22/18 11:37 Wound Center Nurse 2 #6 Left Ischium -Time 11:38 -Correct Patient Yes -Correct Side, Site, Position Yes -Correct Procedure Yes -Procedure Performed Yes -Type of Procedure Debridement -Clinical Debridement Muscle -Post Debridement Size (cm) - Length 4.8 -Post Debridement Size (cm) - Width 7 -Post Debridement Size (cm) - Depth 1 -Total Square Cm 33.6 -Wound/Ulcer Outcome Not Healed -Ulcer Cleansing Rinsed/ Irrigated with Saline -Foul Odor after Cleansing No -Bioengineered Tissue No -Bleeding Controlled with Pressure -Treatment Response Procedure Tolerated Well #5 Right Ischium -Time 11:38 -Correct Patient Yes -Correct Side, Site, Position Yes -Correct Procedure Yes -Procedure Performed Yes -Type of Procedure Debridement -Clinical Debridement Muscle -Post Debridement Size (cm) - Length 4.3 -Post Debridement Size (cm) - Width 3.5 -Post Debridement Size (cm) - Depth 1.6 -Total Square Cm 15.05 -Wound/Ulcer Outcome Not Healed -Ulcer Cleansing Rinsed/ Irrigated with Saline -Foul Odor after Cleansing No -Bioengineered Tissue No -Bleeding Controlled with Pressure -Treatment Response Procedure Tolerated Well Pain Scale: 0-10 Numeric Is Patient Pain Free? Yes Wound debrided: #5 Right ischial area. Laterality: Right Wound Grade/Stage: IV. Type of Debridement: Excisional debridement Anesthesia Used: 4% Lidocaine Solution Depth: Down to and including healthy tissue, in the subcutaneous layer, to muscle, to bone - bone is palpable but not debrided. Percentage of wound debrided: 100 Instrument Used: 7mm curette Tissue Removed: subcutaneous tissue and muscle. Severity: Fat Layer Exposed - muscle is exposed. bone is palpable but not debrided. Amount of bleeding with debridement: Mild Bleeding Controlled with: Pressure Patient tolerated procedure well - Additional Wound Wound debrided: #6 Left ischial area. Laterality: Left Wound Grade/Stage: IV. Type of Debridement: Excisional debridement Anesthesia Used: 4% Lidocaine Solution Depth: Down to and including healthy tissue, in the subcutaneous layer, to muscle, to bone - bone is palpabe but not debrided. Percentage of wound debrided: 100 Instrument Used: 7mm curette Tissue Removed: subcutaneous tissue and muscle. Severity: Fat Layer Exposed - muscle is exposed. bone is palpable but not debrided. Amount of bleeding with debridement: Mild Bleeding Controlled with: Pressure Patient tolerated procedure: Patient tolerated procedure well Assessment/Plan Assessment: 1. Right ischial pressure sore with extension to perineal area, Stage IV. 2. Left ischial pressure sore with extension to the femur, Stage IV. 3. Paraplegia, longstanding. 4. History of MRSA. 5. History of osteomyelitis with multiple prior surgeries. 6. Smoker. Plan: Continue Aquacel silver dressing changes daily to both ischial pressure sores. Encourage nutritional supplementation with protein to help the healing process. Encouraged the patient to stop smoking as it may have deleterious effects on wound healing. Followup 4 weeks.
== END 2018-09-09 23:59 ==
LOC: WC 08:28
PROVIDERS: Family Provider Family Medicine; PCP Family Medicine; Visit Provider Surgery
DX: L89.214 Pressure ulcer of right hip, stage 4 (principal); L89.224 Pressure ulcer of left hip, stage 4; G82.20 Paraplegia, unspecified; Z86.14 Personal history of Methicillin resistant Staphylococcus aureus infection; Z87.39 Personal history of other diseases of the musculoskeletal system and connective tissue; F17.200 Nicotine dependence, unspecified, uncomplicated
CPT/HCPCS: 11043; 11046

== ENCOUNTER 2018-09-26 10:30 | Outpatient (RCR) | payer MEDICARE, MEDICAID, SELFPAY ==
[2018-09-10 01:16] VITALS: BP 136/87; PULSE 110; RESP 18; TEMP 36.4
[2018-09-26 11:22] VITALS: BP 117/67; PULSE 88; RESP 18; TEMP 36.4
--- NOTE | 2018-09-26 19:15 | PCM.WC.PN ---
Type of Wound Date of Service: 09/26/18 Chief Complaint: Bilateral ischial pressure sores, Stage IV. History of Wound: Patient has long standing bilateral ischial pressure sores, Stage IV, with the left side extending to the femoral head and the right side extending to the perineal area and the prostate. Surgery would entail quite extensive excision with amputations at a tertiary center. Patient does not want to pursue any heroic surgeries at this time since it is not a guarantee his pressure issues won't recur. With aggressive amputations, his already tenuous balance would be even more disrupted. Today he denies any fever. His appetite is ok. At the present time, we are providing conservative care on a monthly basis. Progress of Wound: Stable with minimal improvement. - Physical Exam Vital Signs Temp Pulse Resp BP 97.5 F L 88 18 117/67 09/26/18 11:22 09/26/18 11:22 09/26/18 11:22 09/26/18 11:22 Wound Measurements and Assessment WC - Nurse 1 - General Ulcer Measurement Start: 09/26/18 11:22 Freq: Status: Active Protocol: Activity Type Activity Date Activity User E-Sign Co-Sign Detail Recorded Client Recorded Date Recorded By Document 09/26/18 11:22 DL [id number] 09/26/18 11:34 DL 09/26/18 11:22 Wound Center Nurse 1 [Ulcer Assessment] #6 Left Ischium -Current Size (cm) - Length 4.8 -Current Size (cm) - Width 6 -Current Size (cm) - Depth 1.3 -Total Square Cm 28.8 -Photo Taken No -Undermining/Tunneling Starts (O' 9 clock) -Undermining/Tunneling Ends (O'clock) 2 -Maximum Distance (cm) 1.3 -Exudate Amt Medium (34-66%) -Exudate Type Serosanguineous -Wound Margin Thickened & Rolled Under -Granulation Amt Large (67-100%) -Granulation Quality [place] Red -Necrosis Amt Medium (34-66%) -Necrotic Tissue Type Adherent Slough -Structure Exposed Bone -Texture (Steffi-wound Skin Appearance) Scarring -Moisture (Steffi-wound Skin Appearance No Abnormality ) -Color (Steffi-wound Skin Appearance) Rubor -Temperature (Steffi-wound Skin No Abnormality Appearance) (Pt Warm) -Tenderness on Palpation (Steffi-wound No Skin Appearance) -Ulcer Cleansing Wound Cleanser -Foul Odor after Cleansing No -Anesthetic Used 4% Lidocaine Solution #5 Right Ischium -Current Size (cm) - Length 3 -Current Size (cm) - Width 5.5 -Current Size (cm) - Depth 1.3 -Total Square Cm 16.5 -Photo Taken No -Undermining/Tunneling Starts (O' 10 clock) -Undermining/Tunneling Ends (O'clock) 12 -Maximum Distance (cm) 8 -Circular Undermining No -Exudate Amt Medium (34-66%) -Exudate Type Serosanguineous -Wound Margin Thickened & Rolled Under -Granulation Amt Large (67-100%) -Granulation Quality [place] Red -Necrosis Amt Small (1-33%) -Necrotic Tissue Type Adherent Slough -Structure Exposed N/A -Texture (Steffi-wound Skin Appearance) Scarring -Moisture (Steffi-wound Skin Appearance No Abnormality ) -Color (Steffi-wound Skin Appearance) No Abnormality Rubor -Temperature (Steffi-wound Skin No Abnormality Appearance) (Pt Warm) -Tenderness on Palpation (Steffi-wound No Skin Appearance) -Ulcer Cleansing Wound Cleanser -Foul Odor after Cleansing No -Anesthetic Used 4% Lidocaine Solution WC - Nurse 2 - General Ulcer CM Notes Start: 09/26/18 11:22 Freq: Status: Active Protocol: Activity Type Activity Date Activity User E-Sign Co-Sign Detail Recorded Client Recorded Date Recorded By Document 09/26/18 12:01 DEBORAH [id number] 09/26/18 12:02 DEBORAH 09/26/18 12:01 Wound Center Nurse 2 [Procedure/Treatment] #6 Left Ischium -Time 12:01 -Correct Patient Yes -Correct Side, Site, Position Yes -Correct Procedure Yes -Procedure Performed Yes -Type of Procedure Debridement -Clinical Debridement Muscle -Post Debridement Size (cm) - Length 4.8 -Post Debridement Size (cm) - Width 6.1 -Post Debridement Size (cm) - Depth 1.3 -Total Square Cm 29.28 -Wound/Ulcer Outcome Not Healed -Ulcer Cleansing Rinsed/ Irrigated with Saline -Foul Odor after Cleansing No -Bioengineered Tissue No -Bleeding Controlled with Pressure -Offloading No -Treatment Response Procedure Tolerated Well #5 Right Ischium -Time 12:02 -Correct Patient Yes -Correct Side, Site, Position Yes -Correct Procedure Yes -Procedure Performed Yes -Type of Procedure Debridement -Clinical Debridement Muscle -Post Debridement Size (cm) - Length 3 -Post Debridement Size (cm) - Width 5.6 -Post Debridement Size (cm) - Depth 1.3 -Total Square Cm 16.8 -Wound/Ulcer Outcome Not Healed -Ulcer Cleansing Rinsed/ Irrigated with Saline -Foul Odor after Cleansing No -Bioengineered Tissue No -Bleeding Controlled with Pressure -Offloading No -Treatment Response Procedure Tolerated Well [See Physician Procedure note for Specifics] Pain Scale: 0-10 Numeric [Pain] -Is Patient Pain Free? Yes Debridement Note Post-Debridement Measurements/Treatment WC - Nurse 2 - General Ulcer CM Notes Start: 09/26/18 11:22 Freq: Status: Active Protocol: Activity Type Activity Date Activity User E-Sign Co-Sign Detail Recorded Client Recorded Date Recorded By Document 09/26/18 12:01 DEBORAH [id number] 09/26/18 12:02 DEBORAH 09/26/18 12:01 Wound Center Nurse 2 #6 Left Ischium -Time 12:01 -Correct Patient Yes -Correct Side, Site, Position Yes -Correct Procedure Yes -Procedure Performed Yes -Type of Procedure Debridement -Clinical Debridement Muscle -Post Debridement Size (cm) - Length 4.8 -Post Debridement Size (cm) - Width 6.1 -Post Debridement Size (cm) - Depth 1.3 -Total Square Cm 29.28 -Wound/Ulcer Outcome Not Healed -Ulcer Cleansing Rinsed/ Irrigated with Saline -Foul Odor after Cleansing No -Bioengineered Tissue No -Bleeding Controlled with Pressure -Offloading No -Treatment Response Procedure Tolerated Well #5 Right Ischium -Time 12:02 -Correct Patient Yes -Correct Side, Site, Position Yes -Correct Procedure Yes -Procedure Performed Yes -Type of Procedure Debridement -Clinical Debridement Muscle -Post Debridement Size (cm) - Length 3 -Post Debridement Size (cm) - Width 5.6 -Post Debridement Size (cm) - Depth 1.3 -Total Square Cm 16.8 -Wound/Ulcer Outcome Not Healed -Ulcer Cleansing Rinsed/ Irrigated with Saline -Foul Odor after Cleansing No -Bioengineered Tissue No -Bleeding Controlled with Pressure -Offloading No -Treatment Response Procedure Tolerated Well Pain Scale: 0-10 Numeric Is Patient Pain Free? Yes Wound debrided: #5 Right ischial area. Laterality: Right Wound Grade/Stage: IV. Type of Debridement: Excisional debridement Anesthesia Used: 4% Lidocaine Solution Depth: Down to and including healthy tissue, in the subcutaneous layer, to muscle, to bone - bone is palpable but not debrided. Percentage of wound debrided: 100 Instrument Used: 7mm curette Tissue Removed: sucutaneous tissue and muscle. Severity: Fat Layer Exposed - muscle is exposed. bone is palpable but not debrided. Amount of bleeding with debridement: Mild Bleeding Controlled with: Pressure - Additional Wound Wound debrided: #6 Left ischial area. Laterality: Left Wound Grade/Stage: IV. Type of Debridement: Excisional debridement Anesthesia Used: 4% Lidocaine Solution Depth: Down to and including healthy tissue, in the subcutaneous layer, to muscle, to bone - bone is palpable but not debrided. Percentage of wound debrided: 100 Instrument Used: 7mm curette Tissue Removed: subcutaneous tissue and muscle. Severity: Fat Layer Exposed - muscle is exposed. bone is palpable but not debrided. Amount of bleeding with debridement: Mild Bleeding Controlled with: Pressure Patient tolerated procedure: Patient tolerated procedure well Assessment/Plan Assessment: 1. Right ischial pressure sore with extension to perineal area, Stage IV. 2. Left ischial pressure sore with extension to the femur, Stage IV. 3. Paraplegia, longstanding. 4. History of MRSA. 5. History of osteomyelitis with multiple prior surgeries. 6. Smoker. Plan: Continue Aquacel silver dressing changes daily to both ischial pressure sores. Encourage nutritional supplementation with protein to help the healing process. Encouraged the patient to stop smoking as it may have deleterious effects on wound healing. Followup 4 weeks.
== END 2018-10-10 23:59 ==
LOC: WC 10:30
PROVIDERS: Family Provider Family Medicine; PCP Family Medicine; Visit Provider Surgery
DX: L89.214 Pressure ulcer of right hip, stage 4 (principal); L89.224 Pressure ulcer of left hip, stage 4; G82.20 Paraplegia, unspecified; Z87.39 Personal history of other diseases of the musculoskeletal system and connective tissue; Z86.14 Personal history of Methicillin resistant Staphylococcus aureus infection; F17.200 Nicotine dependence, unspecified, uncomplicated
CPT/HCPCS: 11043; 11046

== ENCOUNTER 2018-10-24 08:17 | Outpatient (RCR) | payer MEDICARE, MEDICAID, SELFPAY ==
[2018-10-11 00:54] VITALS: BP 117/67; PULSE 88; RESP 18; TEMP 36.4
== END 2018-11-10 23:59 ==
LOC: WC 08:17
PROVIDERS: Family Provider Family Medicine; PCP Family Medicine; Visit Provider Surgery
DX: Z09 Encounter for follow-up examination after completed treatment for conditions other than malignant neoplasm (principal)

== ENCOUNTER 2018-11-14 11:31 | Outpatient (RCR) | payer MEDICARE, MEDICAID, SELFPAY ==
[2018-11-11 01:13] VITALS: BP 117/67; PULSE 88; RESP 18; TEMP 36.4
--- NOTE | 2018-11-14 11:50 | PN.PCM_ITS ---
(1) left ischial pressure sore, stage IV Status: Chronic Current Visit: Yes Code(s): L89.324 - Pressure ulcer of left buttock, stage 4 Comment: extending to the left femur (2) Right ischial pressure sore, stage 4 Status: Chronic Current Visit: Yes Code(s): L89.314 - Pressure ulcer of right buttock, stage 4 (3) History of osteomyelitis Status: Chronic Current Visit: Yes Code(s): Z87.39 - Personal history of other diseases of the musculoskeletal system and connective tissue (4) History of MRSA infection Status: Chronic Current Visit: Yes Code(s): Z86.14 - Personal history of Methicillin resistant Staphylococcus aureus infection (5) Smoker Status: Chronic Current Visit: Yes Code(s): F17.200 - Nicotine dependence, unspecified, uncomplicated Type of Wound Date of Service: 11/14/18 Chief Complaint: Bilateral ischial pressure sores, Stage IV. History of Wound: Patient has long standing bilateral ischial pressure sores, Stage IV, with the left side extending to the femoral head and the right side extending to the perineal area and the prostate. Surgery would entail quite extensive excision with amputations at a tertiary center. Patient does not want to pursue any heroic surgeries at this time since it is not a guarantee his pressure issues won't recur. With aggressive amputations, his already tenuous balance would be even more disrupted. Today he denies any fever. His appetite is ok. At the present time, we are providing conservative care on a monthly basis. Progress of Wound: Stable. - Physical Exam Vital Signs Temp Pulse Resp BP 97.5 F L 88 18 117/67 11/11/18 01:13 11/11/18 01:13 11/11/18 01:13 11/11/18 01:13 General: Alert, Oriented x3, Cooperative HEENT: Atraumatic Lungs: Normal air movement Extremities: No edema Skin: Ulcer/ Wound - Bilateral ischial ulcers that are stable with minimal improvment. Debridement Note Wound debrided: Right ischial ulcer Laterality: Right Type of Debridement: Excisional debridement Anesthesia Used: 4% Lidocaine Solution Depth: Down to and including healthy tissue, in the subcutaneous layer, to muscle Percentage of wound debrided: 100 Instrument Used: 5mm curette Tissue Removed: Subcutaneous tissue and slough Amount of bleeding with debridement: Mild Bleeding Controlled with: Pressure, Compression and gauze Patient tolerated procedure well - Additional Wound Wound debrided: Left ischial ulcer Laterality: Left Type of Debridement: Excisional debridement Anesthesia Used: 4% Lidocaine Solution Depth: Down to and including healthy tissue, in the subcutaneous layer, to muscle Percentage of wound debrided: 100 Instrument Used: 5mm curette Tissue Removed: Subcutaneous tissue and slough Severity: Fat Layer Exposed Amount of bleeding with debridement: Mild Bleeding Controlled with: Pressure Patient tolerated procedure: Patient tolerated procedure well Assessment/Plan Active Problems Right ischial pressure sore, stage 4 (Chronic) Smoker (Chronic) History of osteomyelitis (Chronic) History of MRSA infection (Chronic) left ischial pressure sore, stage IV (Chronic) extending to the left femur Assessment: 1. Right ischial pressure sore with extension to perineal area, Stage IV. 2. Left ischial pressure sore with extension to the femur, Stage IV. 3. Paraplegia, longstanding. 4. History of MRSA. 5. History of osteomyelitis with multiple prior surgeries. 6. Smoker. Plan: Continue Aquacel silver dressing changes daily to both ischial pressure sores. Encourage nutritional supplementation with protein to help the healing p rocess. Will consult Yared Shook to make sure that patient has an updated bed/mattress. Encouraged the patient to stop smoking as it may have deleterious effects on wound healing. Followup 4 weeks. Code Visit 111xxx-113xx: 04518 Manisha musc/fascia 20 sq cm/< Add On Codes: 16866 Manisha musc/fascia add-on - x 2
[2018-11-14 12:07] VITALS: BP 130/71; PULSE 95; RESP 16; TEMP 36.5
== END 2018-12-08 23:59 ==
LOC: WC 11:31
PROVIDERS: Family Provider Family Medicine; PCP Family Medicine; Visit Provider Surgery
DX: L89.224 Pressure ulcer of left hip, stage 4 (principal); L89.214 Pressure ulcer of right hip, stage 4; Z86.14 Personal history of Methicillin resistant Staphylococcus aureus infection; F17.200 Nicotine dependence, unspecified, uncomplicated
CPT/HCPCS: 11043; 11046

== ENCOUNTER 2018-12-12 10:52 | Outpatient (RCR) | payer MEDICARE, MEDICAID, SELFPAY ==
[2018-12-09 00:58] VITALS: BP 130/71; PULSE 95; RESP 16; TEMP 36.5
[2018-12-12 11:04] VITALS: BP 148/87; PULSE 95; RESP 16; TEMP 36.9
[2018-12-12 14:35] LABS: Hematocrit 42.3 % (40-54); Hemoglobin 13.2 g/dl (13.0-16.5); Mean Corp Hgb Conc 31.2 g/gl (32-36); Mean Corpuscular Hgb 28.5 pg (27.0-32.0); Mean Corpuscular Volume 91.4 fL (80-94); Platelet Count 323 K/mm3 (150-450); RBC Distribution Width CV 13.7 % (11.6-14.6); RBC Distribution Width SD 45.4 fl (35.1-43.9); Red Blood Count 4.63 M/mm3 (4.6-6.2); Scan Indicated on CBC? Y/N NO; White Blood Count 7.7 K/mm3 (4.4-11.0)
[2018-12-12 15:14] LABS: ALB/GLOB Ratio 0.8 RATIO (0.9-2.4); AST(SGOT) 17 U/L (15-37); Alanine Aminotransfer ALT/SGPT 21 U/L (16-61); Alkaline Phosphatase 130 U/L (45-117); Anion Gap 6 (5-15); BUN 23 mg/dL (7-18); BUN/Creat Ratio 42.8 RATIO (10-20); Calcium,Total 8.3 mg/dL (8.5-10.1); Chloride 105 mmol/L (98-107); Creatinine, Serum 0.54 mg/dL (0.70-1.30); EST Glomerular Filtration Rate 171 mL/min (>60); Est Glom Filt Rate - Afr Amer 207 mL/min (>60); Glucose 85 mg/dL (74-106); Potassium 3.9 mmol/L (3.5-5.1); Sodium Level 138 mmol/L (136-145)
--- NOTE | 2018-12-12 17:41 | PN.PCM_ITS ---
Type of Wound Date of Service: 12/12/18 Chief Complaint: Bilateral ischial pressure sores, Stage IV. History of Wound: Patient has long standing bilateral ischial pressure sores, Stage IV, with the left side extending to the femoral head and the right side extending to the perineal area and the prostate. Surgery would entail quite extensive excision with amputations at a tertiary center. Patient does not want to pursue any heroic surgeries at this time since it is not a guarantee his pressure issues won't recur. With aggressive amputations, his already tenuous balance would be even more disrupted. Today he denies any fever. His appetite is ok. At the present time, we are providing conservative care on a monthly basis. Progress of Wound: Stable. - Physical Exam Vital Signs Temp Pulse Resp BP 98.4 F 95 16 148/87 H 12/12/18 11:04 12/12/18 11:04 12/12/18 11:04 12/12/18 11:04 Wound Measurements and Assessment WC - Nurse 1 - General Ulcer Measurement Start: 12/12/18 11:04 Freq: Status: Active Protocol: Activity Type Activity Date Activity User E-Sign Co-Sign Detail Recorded Client Recorded Date Recorded By Document 12/12/18 11:04 [facility] [id number] 12/12/18 11:19 [facility] 12/12/18 11:04 Wound Center Nurse 1 [Ulcer Assessment] #6 Left Ischium -Combined with other wound No -Current Size (cm) - Length 4.9 -Current Size (cm) - Width 6 -Current Size (cm) - Depth 1.3 -Total Square Cm 29.4 -Date of Last Picture (Recall this 12/12/18 field) -Photo Taken Yes -Epithelialization None Present -Tunneling No -Undermining/Tunneling Yes -Undermining/Tunneling Starts (O' 9 clock) -Undermining/Tunneling Ends (O'clock) 5 -Maximum Distance (cm) 1.4 -Exudate Amt Small -Exudate Type Serosanguineous -Wound Margin Thickened & Rolled Under -Granulation Amt Medium (34-66%) -Granulation Quality Red -Slough/Fibrin Yes -Necrosis Amt Small (1-33%) -Necrotic Tissue Type Adherent Slough -Texture (Steffi-wound Skin Appearance) Assessed Scarring Rash -Moisture (Steffi-wound Skin Appearance Assessed ) Dry/Scaly -Color (Steffi-wound Skin Appearance) Assessed -Temperature (Steffi-wound Skin No Abnormality Appearance) (Pt Warm) -Tenderness on Palpation (Steffi-wound No Skin Appearance) -Ulcer Cleansing Rinsed/ Irrigated with Saline -Foul Odor after Cleansing No #5 Right Ischium -Combined with other wound No -Current Size (cm) - Length 3.5 -Current Size (cm) - Width 4.8 -Current Size (cm) - Depth 1.4 -Total Square Cm 16.80 -Date of Last Picture (Recall this 12/12/18 field) -Photo Taken Yes -Epithelialization None Present -Tunneling Yes -Tunneling Position (O'clock) 10 -Tunneling Distance (cm) 7.2 -Undermining/Tunneling No -Circular Undermining No -Exudate Amt Small -Exudate Type Serosanguineous -Wound Margin Thickened & Rolled Under -Granulation Amt Medium (34-66%) -Granulation Quality Red -Slough/Fibrin Yes -Necrosis Amt Medium (34-66%) -Necrotic Tissue Type Adherent Slough -Texture (Steffi-wound Skin Appearance) Assessed Scarring -Moisture (Steffi-wound Skin Appearance Assessed ) Dry/Scaly -Color (Steffi-wound Skin Appearance) Assessed -Temperature (Steffi-wound Skin No Abnormality Appearance) (Pt Warm) -Tenderness on Palpation (Steffi-wound No Skin Appearance) -Ulcer Cleansing Rinsed/ Irrigated with Saline -Foul Odor after Cleansing No WC - Nurse 2 - General Ulcer CM Notes Start: 12/12/18 11:04 Freq: Status: Active Protocol: Activity Type Activity Date Activity User E-Sign Co-Sign Detail Recorded Client Recorded Date Recorded By Document 12/12/18 12:06 DEBORAH [id number] 12/12/18 12:07 DEBORAH 12/12/18 12:06 Wound Center Nurse 2 [Procedure/Treatment] #6 Left Ischium -Time 12:06 -Correct Patient Yes -Correct Side, Site, Position Yes -Correct Procedure Yes -Procedure Performed Yes -Type of Procedure Debridement -Clinical Debridement Muscle -Post Debridement Size (cm) - Length 5 -Post Debridement Size (cm) - Width 6 -Post Debridement Size (cm) - Depth 1.3 -Total Square Cm 30 -Wound/Ulcer Outcome Not Healed -Ulcer Cleansing Rinsed/ Irrigated with Saline -Foul Odor after Cleansing No -Bioengineered Tissue No -Bleeding Controlled with Pressure -Offloading No -Treatment Response Procedure Tolerated Well #5 Right Ischium -Time 12:06 -Correct Patient Yes -Correct Side, Site, Position Yes -Correct Procedure Yes -Procedure Performed Yes -Type of Procedure Debridement -Clinical Debridement Muscle -Post Debridement Size (cm) - Length 3.5 -Post Debridement Size (cm) - Width 4.9 -Post Debridement Size (cm) - Depth 1.5 -Total Square Cm 17.15 -Wound/Ulcer Outcome Not Healed -Ulcer Cleansing Rinsed/ Irrigated with Saline -Foul Odor after Cleansing No -Bioengineered Tissue No -Bleeding Controlled with Pressure -Offloading No -Treatment Response Procedure Tolerated Well [See Physician Procedure note for Specifics] Pain Scale: 0-10 Numeric [Pain] -Is Patient Pain Free? Yes Debridement Note Post-Debridement Measurements/Treatment WC - Nurse 2 - General Ulcer CM Notes Start: 12/12/18 11:04 Freq: Status: Active Protocol: Activity Type Activity Date Activity User E-Sign Co-Sign Detail Recorded Client Recorded Date Recorded By Document 12/12/18 12:06 DEBORAH [id number] 12/12/18 12:07 DEBORAH 12/12/18 12:06 Wound Center Nurse 2 #6 Left Ischium -Time 12:06 -Correct Patient Yes -Correct Side, Site, Position Yes -Correct Procedure Yes -Procedure Performed Yes -Type of Procedure Debridement -Clinical Debridement Muscle -Post Debridement Size (cm) - Length 5 -Post Debridement Size (cm) - Width 6 -Post Debridement Size (cm) - Depth 1.3 -Total Square Cm 30 -Wound/Ulcer Outcome Not Healed -Ulcer Cleansing Rinsed/ Irrigated with Saline -Foul Odor after Cleansing No -Bioengineered Tissue No -Bleeding Controlled with Pressure -Offloading No -Treatment Response Procedure Tolerated Well #5 Right Ischium -Time 12:06 -Correct Patient Yes -Correct Side, Site, Position Yes -Correct Procedure Yes -Procedure Performed Yes -Type of Procedure Debridement -Clinical Debridement Muscle -Post Debridement Size (cm) - Length 3.5 -Post Debridement Size (cm) - Width 4.9 -Post Debridement Size (cm) - Depth 1.5 -Total Square Cm 17.15 -Wound/Ulcer Outcome Not Healed -Ulcer Cleansing Rinsed/ Irrigated with Saline -Foul Odor after Cleansing No -Bioengineered Tissue No -Bleeding Controlled with Pressure -Offloading No -Treatment Response Procedure Tolerated Well Pain Scale: 0-10 Numeric Is Patient Pain Free? Yes Wound debrided: #5 Right ischial area. Laterality: Right Wound Grade/Stage: IV. Type of Debridement: Excisional debridement Anesthesia Used: 4% Lidocaine Solution Depth: Down to and including healthy tissue, in the subcutaneous layer, to muscle, to bone - bone is palpable but not debrided. Percentage of wound debrided: 100 Instrument Used: 7mm curette Tissue Removed: subcutaneous tissue and muscle. Severity: Fat Layer Exposed - muscle is exposed. bone is palpable but not debrided. Amount of bleeding with debridement: Mild Bleeding Controlled with: Pressure Patient tolerated procedure well - Additional Wound Wound debrided: #6 Left ischial area. Laterality: Left Wound Grade/Stage: IV. Type of Debridement: Excisional debridement Anesthesia Used: 4% Lidocaine Solution Depth: Down to and including healthy tissue, in the subcutaneous layer, to muscle, to bone - bone is palpable but not debrided. Percentage of wound debrided: 100 Instrument Used: 7mm curette Tissue Removed: subcutaneous tissue and muscle. Severity: Fat Layer Exposed - muscle is exposed. bone is palpable but not debrided. Amount of bleeding with debridement: Mild Bleeding Controlled with: Pressure Patient tolerated procedure: Patient tolerated procedure well Assessment/Plan Assessment: 1. Right ischial pressure sore with extension to perineal area, Stage IV. 2. Left ischial pressure sore with extension to the femur, Stage IV. 3. Paraplegia, longstanding. 4. History of MRSA. 5. History of osteomyelitis with multiple prior surgeries. 6. Smoker. Plan: Continue Aquacel silver dressing changes daily to both ischial pressure sores. Encourage nutritional supplementation with protein to help the healing process. Encouraged the patient to stop smoking as it may have deleterious effects on wound healing. Followup 4 weeks.
== END 2019-01-08 23:59 ==
LOC: WC 10:52
PROVIDERS: Family Provider Family Medicine; PCP Family Medicine; Visit Provider Surgery
DX: L89.224 Pressure ulcer of left hip, stage 4 (principal); L89.214 Pressure ulcer of right hip, stage 4; Z86.14 Personal history of Methicillin resistant Staphylococcus aureus infection; F17.200 Nicotine dependence, unspecified, uncomplicated
CPT/HCPCS: 11043; 11046; 80053; 84443; 85027

== ENCOUNTER 2019-01-16 08:27 | Outpatient (RCR) | payer MEDICARE, MEDICAID, SELFPAY ==
[2019-01-09 00:51] VITALS: BP 148/87; PULSE 95; RESP 16; TEMP 36.9
[2019-01-16 11:10] VITALS: BP 110/66; PULSE 89; RESP 16; TEMP 37
--- NOTE | 2019-01-16 12:35 | PCM.WC.PN ---
(1) left ischial pressure sore, stage IV Status: Chronic Current Visit: Yes Code(s): L89.324 - Pressure ulcer of left buttock, stage 4 Comment: extending to the left femur (2) Right ischial pressure sore, stage 4 Status: Chronic Current Visit: Yes Code(s): L89.314 - Pressure ulcer of right buttock, stage 4 (3) Chronic paraplegia Status: Chronic Current Visit: Yes Code(s): G82.20 - Paraplegia, unspecified (4) History of osteomyelitis Status: Chronic Current Visit: Yes Code(s): Z87.39 - Personal history of other diseases of the musculoskeletal system and connective tissue (5) History of MRSA infection Status: Chronic Current Visit: Yes Code(s): Z86.14 - Personal history of Methicillin resistant Staphylococcus aureus infection (6) Smoker Status: Chronic Current Visit: Yes Code(s): F17.200 - Nicotine dependence, unspecified, uncomplicated Type of Wound Date of Service: 01/16/19 Chief Complaint: Bilateral ischial pressure sores, Stage IV. History of Wound: Patient has long standing bilateral ischial pressure sores, Stage IV, with the left side extending to the femoral head and the right side extending to the perineal area and the prostate. Surgery would entail quite extensive excision with amputations at a tertiary center. Patient does not want to pursue any heroic surgeries at this time since it is not a guarantee his pressure issues won't recur. With aggressive amputations, his already tenuous balance would be even more disrupted. Today he denies any fever. His appetite is ok. At the present time, we are providing conservative care on a monthly basis. Progress of Wound: Stable. - Physical Exam Vital Signs Temp Pulse Resp BP 98.6 F 89 16 110/66 01/16/19 11:10 01/16/19 11:10 01/16/19 11:10 01/16/19 11:10 General: Alert, Oriented x3, Cooperative HEENT: Atraumatic Oral: Moist Mucosa Lungs: Normal air movement Cardiovascular: Regular rate Extremities: No edema Skin: Ulcer/ Wound - Left and right Stage 4 ischial ulcers Wound Measurements and Assessment WC - Nurse 1 - General Ulcer Measurement Start: 01/16/19 11:10 Freq: Status: Active Protocol: Activity Type Activity Date Activity User E-Sign Co-Sign Detail Recorded Client Recorded Date Recorded By Document 01/16/19 11:10 MW [id number] 01/16/19 11:22 MW 01/16/19 11:10 Wound Center Nurse 1 [Ulcer Assessment] #6 Left Ischium -Combined with other wound No -Current Size (cm) - Length 5.9 -Current Size (cm) - Width 4.6 -Total Square Cm 27.14 -Photo Taken Yes -Epithelialization Large 67-100% -Tunneling No -Undermining/Tunneling No -Circular Undermining Yes -Exudate Amt Large -Exudate Type Serosanguineous -Wound Margin Flat & Intact -Granulation Amt Large (67-100%) -Granulation Quality Red -Slough/Fibrin Yes -Necrosis Amt Medium (34-66%) -Necrotic Tissue Type Adherent Slough -Structure Exposed N/A -Texture (Steffi-wound Skin Appearance) Assessed -Moisture (Steffi-wound Skin Appearance Assessed ) Maceration -Color (Steffi-wound Skin Appearance) Assessed -Temperature (Steffi-wound Skin No Abnormality Appearance) (Pt Warm) -Tenderness on Palpation (Steffi-wound No Skin Appearance) -Ulcer Cleansing Wound Cleanser -Foul Odor after Cleansing No #5 Right Ischium -Combined with other wound No -Current Size (cm) - Length 4.0 -Current Size (cm) - Width 4.0 -Total Square Cm 16.00 -Photo Taken Yes -Epithelialization None Present -Tunneling No -Undermining/Tunneling No -Circular Undermining Yes -Exudate Amt Large -Exudate Type Serosanguineous -Wound Margin Flat & Intact -Granulation Amt Medium (34-66%) -Granulation Quality Red -Slough/Fibrin Yes -Necrosis Amt Medium (34-66%) -Necrotic Tissue Type Adherent Slough -Structure Exposed N/A -Texture (Steffi-wound Skin Appearance) Assessed -Moisture (Steffi-wound Skin Appearance Assessed ) Maceration -Color (Steffi-wound Skin Appearance) Assessed -Temperature (Steffi-wound Skin No Abnormality Appearance) (Pt Warm) -Tenderness on Palpation (Steffi-wound No Skin Appearance) -Ulcer Cleansing Wound Cleanser -Foul Odor after Cleansing No [Edema Assessment] -Lower Limb Edema Present NA WC - Nurse 2 - General Ulcer CM Notes Start: 01/16/19 11:10 Freq: Status: Active Protocol: Activity Type Activity Date Activity User E-Sign Co-Sign Detail Recorded Client Recorded Date Recorded By Document 01/16/19 11:29 MW [id number] 01/16/19 11:34 MW 01/16/19 11:29 Wound Center Nurse 2 [Procedure/Treatment] #6 Left Ischium -Time 11:29 -Correct Patient Yes -Correct Side, Site, Position Yes -Correct Procedure Yes -Procedure Performed Yes -Type of Procedure Debridement -Clinical Debridement Bone -Post Debridement Size (cm) - Length 6.5 -Post Debridement Size (cm) - Width 5 -Post Debridement Size (cm) - Depth 2.0 -Total Square Cm 32.5 -Wound/Ulcer Outcome Not Healed -Ulcer Cleansing Rinsed/ Irrigated with Saline -Foul Odor after Cleansing No -Bioengineered Tissue No -Bleeding Controlled with Pressure -Offloading No -Treatment Response Procedure Tolerated Well #5 Right Ischium -Time 11:30 -Correct Patient Yes -Correct Side, Site, Position Yes -Correct Procedure Yes -Procedure Performed Yes -Type of Procedure Debridement -Clinical Debridement Muscle -Post Debridement Size (cm) - Length 4.5 -Post Debridement Size (cm) - Width 4.5 -Post Debridement Size (cm) - Depth 2.0 -Total Square Cm 20.25 -Wound/Ulcer Outcome Not Healed -Ulcer Cleansing Rinsed/ Irrigated with Saline -Foul Odor after Cleansing No -Bioengineered Tissue No -Bleeding Controlled with Pressure -Offloading No -Treatment Response Procedure Tolerated Well [See Physician Procedure note for Specifics] Pain Scale: 0-10 Numeric [Pain] -Is Patient Pain Free? Yes Musculoskeletal: No Tenderness to Palpation of Joints or Extremities Neurological: Cranial nerves II-XII grossly intact Psych/Mental Status: Normal Affect, Appropriate Debridement Note Post-Debridement Measurements/Treatment WC - Nurse 2 - General Ulcer CM Notes Start: 01/16/19 11:10 Freq: Status: Active Protocol: Activity Type Activity Date Activity User E-Sign Co-Sign Detail Recorded Client Recorded Date Recorded By Document 01/16/19 11:29 MW [id number] 01/16/19 11:34 MW 01/16/19 11:29 Wound Center Nurse 2 #6 Left Ischium -Time 11:29 -Correct Patient Yes -Correct Side, Site, Position Yes -Correct Procedure Yes -Procedure Performed Yes -Type of Procedure Debridement -Clinical Debridement Bone -Post Debridement Size (cm) - Length 6.5 -Post Debridement Size (cm) - Width 5 -Post Debridement Size (cm) - Depth 2.0 -Total Square Cm 32.5 -Wound/Ulcer Outcome Not Healed -Ulcer Cleansing Rinsed/ Irrigated with Saline -Foul Odor after Cleansing No -Bioengineered Tissue No -Bleeding Controlled with Pressure -Offloading No -Treatment Response Procedure Tolerated Well #5 Right Ischium -Time 11:30 -Correct Patient Yes -Correct Side, Site, Position Yes -Correct Procedure Yes -Procedure Performed Yes -Type of Procedure Debridement -Clinical Debridement Muscle -Post Debridement Size (cm) - Length 4.5 -Post Debridement Size (cm) - Width 4.5 -Post Debridement Size (cm) - Depth 2.0 -Total Square Cm 20.25 -Wound/Ulcer Outcome Not Healed -Ulcer Cleansing Rinsed/ Irrigated with Saline -Foul Odor after Cleansing No -Bioengineered Tissue No -Bleeding Controlled with Pressure -Offloading No -Treatment Response Procedure Tolerated Well Pain Scale: 0-10 Numeric Is Patient Pain Free? Yes Wound debrided: Left ischial ulcers Laterality: Left Wound Grade/Stage: Stage 4 Type of Debridement: Excisional debridement Depth: Down to and including healthy tissue, in the subcutaneous layer, to muscle, to bone Percentage of wound debrided: 100 Instrument Used: 7mm curette Tissue Removed: Subcutaneous tissue and slough Severity: Fat Layer Exposed Amount of bleeding with debridement: Mild Bleeding Controlled with: Pressure Patient tolerated procedure well - Additional Wound Wound debrided: Right ischial ulcer Laterality: Right Wound Grade/Stage: Stage 4 Type of Debridement: Excisional debridement Anesthesia Used: 4% Lidocaine Solution Depth: Down to and including healthy tissue, in the subcutaneous layer, to muscle Percentage of wound debrided: 100 Instrument Used: 7mm curette Tissue Removed: Subcutaneous tissue and slough Severity: Fat Layer Exposed Amount of bleeding with debridement: Mild Bleeding Controlled with: Pressure Patient tolerated procedure: Patient tolerated procedure well Assessment/Plan Active Problems Right ischial pressure sore, stage 4 (Chronic) Chronic paraplegia (Chronic) Smoker (Chronic) History of osteomyelitis (Chronic) History of MRSA infection (Chronic) left ischial pressure sore, stage IV (Chronic) extending to the left femur Assessment: 1. Right ischial pressure sore with extension to perineal area, Stage IV. 2. Left ischial pressure sore with extension to the femur, Stage IV. 3. Paraplegia, longstanding. 4. History of MRSA. 5. History of osteomyelitis with multiple prior surgeries. 6. Smoker. Plan: Continue Aquacel silver dressing changes daily to both ischial pressure sores. Encourage nutritional supplementation with protein to help the healing process. Encouraged the patient to stop smoking as it may have deleterious effects on wound healing. Followup 4 weeks. 01/16/19 Obtained wound cultures. He states he has not been feeling well and he has had some odor recently from ulcers. Labs that were previously drawn were reviewed and unremarkable. Code Visit 111xxx-113xx: 61288 Manisha bone 20 sq cm/< Add On Codes: 96101 Manisha bone add-on - x1
== END 2019-02-07 23:59 ==
LOC: WC 08:27
PROVIDERS: Family Provider Family Medicine; PCP Family Medicine; Visit Provider Surgery
DX: L89.224 Pressure ulcer of left hip, stage 4 (principal); L89.214 Pressure ulcer of right hip, stage 4; Z86.14 Personal history of Methicillin resistant Staphylococcus aureus infection; G82.20 Paraplegia, unspecified; F17.200 Nicotine dependence, unspecified, uncomplicated
CPT/HCPCS: 11043; 11044; 11046; 11047; 87070; 87075; 87077; 87186; 87205

== ENCOUNTER 2019-02-20 10:58 | Outpatient (RCR) | payer MEDICARE, MEDICAID, SELFPAY ==
[2019-02-08 01:01] VITALS: BP 110/66; PULSE 89; RESP 16; TEMP 37
[2019-02-20 11:42] VITALS: BP 116/63; PULSE 72; RESP 16; TEMP 36.7
--- NOTE | 2019-02-20 12:44 | PCM.WC.PN ---
Type of Wound Date of Service: 02/20/19 Chief Complaint: Bilateral ischial pressure sores, Stage IV. History of Wound: Patient has long standing bilateral ischial pressure sores, Stage IV, with the left side extending to the femoral head and the right side extending to the perineal area and the prostate. Surgery would entail quite extensive excision with amputations at a tertiary center. Patient does not want to pursue any heroic surgeries at this time since it is not a guarantee his pressure issues won't recur. With aggressive amputations, his already tenuous balance would be even more disrupted. Today he denies any fever. His appetite is ok. At the present time, we are providing conservative care on a monthly basis. At his last visit on 01/16/19, he had a wound culture which showed Morganella morganii sp sibonii, Pseudomonas aeroginosa, E. coli, Streptococcus mitis, Corynebacterium striatum, and Bacteroides fragilis. He saw Infectious Diseases and was treated with Levaquin. Progress of Wound: Stable. - Physical Exam Vital Signs Temp Pulse Resp BP 98.0 F 72 16 116/63 02/20/19 11:42 02/20/19 11:42 02/20/19 11:42 02/20/19 11:42 Wound Measurements and Assessment WC - Nurse 1 - General Ulcer Measurement Start: 02/20/19 11:42 Freq: Status: Active Protocol: Activity Type Activity Date Activity User E-Sign Co-Sign Detail Recorded Client Recorded Date Recorded By Document 02/20/19 11:42 MW [id number] 02/20/19 11:48 MW 02/20/19 11:42 Wound Center Nurse 1 [Ulcer Assessment] #6 Left Ischium -Combined with other wound No -Current Size (cm) - Length 4.0 -Current Size (cm) - Width 6.1 -Current Size (cm) - Depth 0.5 -Total Square Cm 24.40 -Date of Last Picture (Recall this 02/20/19 field) -Photo Taken Yes -Epithelialization None Present -Tunneling No -Undermining/Tunneling No -Circular Undermining No -Exudate Amt Small -Exudate Type Serous -Wound Margin Thickened & Rolled Under -Granulation Amt Large (67-100%) -Granulation Quality Pale -Slough/Fibrin Yes -Necrosis Amt Small (1-33%) -Necrotic Tissue Type Adherent Slough -Structure Exposed Bone -Texture (Steffi-wound Skin Appearance) Assessed Scarring -Moisture (Steffi-wound Skin Appearance No Abnormality ) Assessed -Color (Steffi-wound Skin Appearance) No Abnormality Assessed -Temperature (Steffi-wound Skin No Abnormality Appearance) (Pt Warm) -Tenderness on Palpation (Steffi-wound No Skin Appearance) -Ulcer Cleansing Rinsed/ Irrigated with Saline -Foul Odor after Cleansing No -Anesthetic Used 4% Lidocaine Solution #5 Right Ischium -Combined with other wound No -Current Size (cm) - Length 5.0 -Current Size (cm) - Width 3.0 -Current Size (cm) - Depth 1.1 -Total Square Cm 15.00 -Date of Last Picture (Recall this 02/20/19 field) -Photo Taken Yes -Epithelialization None Present -Tunneling No -Undermining/Tunneling No -Circular Undermining No -Exudate Amt Small -Exudate Type Serous -Wound Margin Thickened & Rolled Under -Granulation Amt Medium (34-66%) -Granulation Quality Pale -Slough/Fibrin Yes -Necrosis Amt Medium (34-66%) -Necrotic Tissue Type Adherent Slough -Structure Exposed N/A -Texture (Steffi-wound Skin Appearance) Assessed Scarring -Moisture (Steffi-wound Skin Appearance No Abnormality ) Assessed -Color (Steffi-wound Skin Appearance) No Abnormality Assessed -Temperature (Steffi-wound Skin No Abnormality Appearance) (Pt Warm) -Tenderness on Palpation (Steffi-wound No Skin Appearance) -Ulcer Cleansing Rinsed/ Irrigated with Saline -Foul Odor after Cleansing No -Anesthetic Used 4% Lidocaine Solution [Edema Assessment] -Lower Limb Edema Present No WC - Nurse 2 - General Ulcer CM Notes Start: 02/20/19 11:42 Freq: Status: Active Protocol: Activity Type Activity Date Activity User E-Sign Co-Sign Detail Recorded Client Recorded Date Recorded By Document 02/20/19 12:18 DEBORAH [id number] 02/20/19 12:19 DEBORAH 02/20/19 12:18 Wound Center Nurse 2 [Procedure/Treatment] #6 Left Ischium -Time 12:18 -Correct Patient Yes -Correct Side, Site, Position Yes -Correct Procedure Yes -Procedure Performed Yes -Type of Procedure Debridement -Clinical Debridement Muscle -Post Debridement Size (cm) - Length 4 -Post Debridement Size (cm) - Width 6.2 -Post Debridement Size (cm) - Depth 0.5 -Total Square Cm 24.8 -Wound/Ulcer Outcome Not Healed -Ulcer Cleansing Rinsed/ Irrigated with Saline -Foul Odor after Cleansing No -Bioengineered Tissue No -Bleeding Controlled with Pressure -Offloading No -Treatment Response Procedure Tolerated Well #5 Right Ischium -Time 12:19 -Correct Patient Yes -Correct Side, Site, Position Yes -Correct Procedure Yes -Procedure Performed Yes -Type of Procedure Debridement -Clinical Debridement Muscle -Post Debridement Size (cm) - Length 5 -Post Debridement Size (cm) - Width 3.1 -Post Debridement Size (cm) - Depth 1.2 -Total Square Cm 15.5 -Wound/Ulcer Outcome Not Healed -Ulcer Cleansing Rinsed/ Irrigated with Saline -Foul Odor after Cleansing No -Bioengineered Tissue No -Bleeding Controlled with Pressure -Offloading No -Treatment Response Procedure Tolerated Well [See Physician Procedure note for Specifics] Pain Scale: 0-10 Numeric [Pain] -Is Patient Pain Free? Yes Debridement Note Post-Debridement Measurements/Treatment WC - Nurse 2 - General Ulcer CM Notes Start: 02/20/19 11:42 Freq: Status: Active Protocol: Activity Type Activity Date Activity User E-Sign Co-Sign Detail Recorded Client Recorded Date Recorded By Document 02/20/19 12:18 DEBORAH [id number] 02/20/19 12:19 DEBORAH 02/20/19 12:18 Wound Center Nurse 2 #6 Left Ischium -Time 12:18 -Correct Patient Yes -Correct Side, Site, Position Yes -Correct Procedure Yes -Procedure Performed Yes -Type of Procedure Debridement -Clinical Debridement Muscle -Post Debridement Size (cm) - Length 4 -Post Debridement Size (cm) - Width 6.2 -Post Debridement Size (cm) - Depth 0.5 -Total Square Cm 24.8 -Wound/Ulcer Outcome Not Healed -Ulcer Cleansing Rinsed/ Irrigated with Saline -Foul Odor after Cleansing No -Bioengineered Tissue No -Bleeding Controlled with Pressure -Offloading No -Treatment Response Procedure Tolerated Well #5 Right Ischium -Time 12:19 -Correct Patient Yes -Correct Side, Site, Position Yes -Correct Procedure Yes -Procedure Performed Yes -Type of Procedure Debridement -Clinical Debridement Muscle -Post Debridement Size (cm) - Length 5 -Post Debridement Size (cm) - Width 3.1 -Post Debridement Size (cm) - Depth 1.2 -Total Square Cm 15.5 -Wound/Ulcer Outcome Not Healed -Ulcer Cleansing Rinsed/ Irrigated with Saline -Foul Odor after Cleansing No -Bioengineered Tissue No -Bleeding Controlled with Pressure -Offloading No -Treatment Response Procedure Tolerated Well Pain Scale: 0-10 Numeric Is Patient Pain Free? Yes Wound debrided: #5 Right ischial area. Laterality: Right Wound Grade/Stage: IV. Type of Debridement: Excisional debridement Anesthesia Used: 4% Lidocaine Solution Depth: Down to and including healthy tissue, in the subcutaneous layer, to muscle, to bone - bone is palpable but not debrided. Percentage of wound debrided: 100 Instrument Used: 7mm curette Tissue Removed: subcutaneous tissue and muscle. Severity: Fat Layer Exposed - muscle is exposed. bone is palpable but not debrided. Amount of bleeding with debridement: Mild Bleeding Controlled with: Pressure Patient tolerated procedure well - Additional Wound Wound debrided: #6 Left ischial area. Laterality: Left Wound Grade/Stage: IV. Type of Debridement: Excisional debridement Anesthesia Used: 4% Lidocaine Solution Depth: Down to and including healthy tissue, in the subcutaneous layer, to muscle, to bone - bone is palpable but not debrided. Percentage of wound debrided: 100 Instrument Used: 7mm curette Tissue Removed: subcutaneous tissue and muscle. Severity: Fat Layer Exposed - muscle is exposed. bone is palpable but not debrided. Amount of bleeding with debridement: Mild Bleeding Controlled with: Pressure Patient tolerated procedure: Patient tolerated procedure well Assessment/Plan Assessment: 1. Right ischial pressure sore with extension to perineal area, Stage IV. 2. Left ischial pressure sore with extension to the femur, Stage IV. 3. Paraplegia, longstanding. 4. History of MRSA. 5. History of osteomyelitis with multiple prior surgeries. 6. Smoker. Plan: Continue Aquacel silver dressing changes daily to both ischial pressure sores. He has finished the Levaquin and has tolerated them. The wound culture from 01/16/19 showed Morganella morganii sp sibonii, Pseudomonas aeroginosa, E. coli, Streptococcus mitis, Corynebacterium striatum, and Bacteroides fragilis. Encourage nutritional supplementation with protein to help the healing process. Encouraged the patient to stop smoking as it may have deleterious effects on wound healing. Followup 4 weeks.
== END 2019-03-10 23:59 ==
LOC: WC 10:58
PROVIDERS: Family Provider Family Medicine; PCP Family Medicine; Visit Provider Surgery
DX: L89.224 Pressure ulcer of left hip, stage 4 (principal); L89.214 Pressure ulcer of right hip, stage 4; F17.200 Nicotine dependence, unspecified, uncomplicated; Z86.14 Personal history of Methicillin resistant Staphylococcus aureus infection; G82.20 Paraplegia, unspecified
CPT/HCPCS: 11043; 11046

== ENCOUNTER 2019-03-20 10:53 | Outpatient (RCR) | payer MEDICARE, MEDICAID, SELFPAY ==
[2019-03-11 00:46] VITALS: BP 116/63; PULSE 72; RESP 16; TEMP 36.7
[2019-03-20 11:29] VITALS: BP 117/61; PULSE 66; RESP 18; TEMP 36.9
--- NOTE | 2019-03-20 22:35 | PCM.WC.PN ---
Type of Wound Date of Service: 03/20/19 Chief Complaint: Bilateral ischial pressure sores, Stage IV. History of Wound: Patient has long standing bilateral ischial pressure sores, Stage IV, with the left side extending to the femoral head and the right side extending to the perineal area and the prostate. Surgery would entail quite extensive excision with amputations at a tertiary center. Patient does not want to pursue any heroic surgeries at this time since it is not a guarantee his pressure issues won't recur. With aggressive amputations, his already tenuous balance would be even more disrupted. Today he denies any fever. His appetite is ok. At the present time, we are providing conservative care on a monthly basis. At his last visit on 01/16/19, he had a wound culture which showed Morganella morganii sp sibonii, Pseudomonas aeroginosa, E. coli, Streptococcus mitis, Corynebacterium striatum, and Bacteroides fragilis. He saw Infectious Diseases and was treated with Levaquin. Progress of Wound: Stable. - Physical Exam Vital Signs Temp Pulse Resp BP 98.4 F 66 18 117/61 03/20/19 11:29 03/20/19 11:29 03/20/19 11:29 03/20/19 11:29 Wound Measurements and Assessment WC - Nurse 1 - General Ulcer Measurement Start: 03/20/19 11:29 Freq: Status: Active Protocol: Activity Type Activity Date Activity User E-Sign Co-Sign Detail Recorded Client Recorded Date Recorded By Document 03/20/19 11:29 AN [id number] 03/20/19 11:50 AN 03/20/19 11:29 Wound Center Nurse 1 [Ulcer Assessment] #6 Left Ischium -Current Size (cm) - Length 4 -Current Size (cm) - Width 6.2 -Current Size (cm) - Depth 0.5 -Total Square Cm 24.8 -Undermining/Tunneling Yes -Undermining/Tunneling Starts (O' 9 clock) -Undermining/Tunneling Ends (O'clock) 3 -Maximum Distance (cm) 1.5 -Circular Undermining No -Classification - Thickness Full Thickness with Exposed Support Structure -Exudate Amt Medium -Exudate Type Serosanguineous -Wound Margin Thickened -Granulation Amt Medium (34-66%) -Granulation Quality Pale Red -Slough/Fibrin Yes -Necrosis Amt Small (1-33%) -Necrotic Tissue Type Adherent Slough -Structure Exposed Tendon Fascia Muscle -Texture (Steffi-wound Skin Appearance) No Abnormality Scarring -Moisture (Steffi-wound Skin Appearance Assessed ) Maceration -Color (Steffi-wound Skin Appearance) Assessed -Temperature (Steffi-wound Skin Cool/Cold Appearance) -Tenderness on Palpation (Steffi-wound No Skin Appearance) -Ulcer Cleansing Rinsed/ Irrigated with Saline -Foul Odor after Cleansing No #5 Right Ischium -Current Size (cm) - Length 3 -Current Size (cm) - Width 4.2 -Current Size (cm) - Depth 1.7 -Total Square Cm 12.6 -Date of Last Picture (Recall this 03/20/19 field) -Photo Taken Yes -Classification - Thickness Full Thickness with Exposed Support Structure -Exudate Amt Medium -Exudate Type Serosanguineous -Wound Margin Thickened -Granulation Amt Medium (34-66%) -Granulation Quality Pale Red -Slough/Fibrin Yes -Necrosis Amt Medium (34-66%) -Necrotic Tissue Type Adherent Slough -Structure Exposed Muscle Bone -Texture (Steffi-wound Skin Appearance) Assessed -Moisture (Steffi-wound Skin Appearance Assessed ) Maceration -Color (Steffi-wound Skin Appearance) Assessed -Temperature (Steffi-wound Skin Cool/Cold Appearance) -Tenderness on Palpation (Steffi-wound No Skin Appearance) -Ulcer Cleansing Rinsed/ Irrigated with Saline -Foul Odor after Cleansing No -Anesthetic Used 4% Lidocaine Solution WC - Nurse 2 - General Ulcer CM Notes Start: 03/20/19 11:29 Freq: Status: Active Protocol: Activity Type Activity Date Activity User E-Sign Co-Sign Detail Recorded Client Recorded Date Recorded By Document 03/20/19 12:19 DEBORAH [id number] 03/20/19 12:22 DEBORAH 03/20/19 12:19 Wound Center Nurse 2 [Procedure/Treatment] #6 Left Ischium -Time 12:20 -Correct Patient Yes -Correct Side, Site, Position Yes -Correct Procedure Yes -Procedure Performed Yes -Type of Procedure Debridement -Clinical Debridement Muscle -Post Debridement Size (cm) - Length 4 -Post Debridement Size (cm) - Width 6.3 -Post Debridement Size (cm) - Depth 0.5 -Total Square Cm 25.2 -Wound/Ulcer Outcome Not Healed -Ulcer Cleansing Rinsed/ Irrigated with Saline -Foul Odor after Cleansing No -Bioengineered Tissue No -Bleeding Controlled with Pressure -Offloading No -Treatment Response Procedure Tolerated Well #5 Right Ischium -Time 12:20 -Correct Patient Yes -Correct Side, Site, Position Yes -Correct Procedure Yes -Procedure Performed Yes -Type of Procedure Debridement -Clinical Debridement Muscle -Post Debridement Size (cm) - Length 3 -Post Debridement Size (cm) - Width 4.3 -Post Debridement Size (cm) - Depth 1.7 -Total Square Cm 12.9 -Wound/Ulcer Outcome Not Healed -Ulcer Cleansing Rinsed/ Irrigated with Saline -Foul Odor after Cleansing No -Bioengineered Tissue No -Bleeding Controlled with Pressure -Offloading No -Treatment Response Procedure Tolerated Well [See Physician Procedure note for Specifics] Pain Scale: 0-10 Numeric [Pain] -Is Patient Pain Free? Yes Debridement Note Post-Debridement Measurements/Treatment WC - Nurse 2 - General Ulcer CM Notes Start: 03/20/19 11:29 Freq: Status: Active Protocol: Activity Type Activity Date Activity User E-Sign Co-Sign Detail Recorded Client Recorded Date Recorded By Document 03/20/19 12:19 DEBORAH [id number] 03/20/19 12:22 DEBORAH 03/20/19 12:19 Wound Center Nurse 2 #6 Left Ischium -Time 12:20 -Correct Patient Yes -Correct Side, Site, Position Yes -Correct Procedure Yes -Procedure Performed Yes -Type of Procedure Debridement -Clinical Debridement Muscle -Post Debridement Size (cm) - Length 4 -Post Debridement Size (cm) - Width 6.3 -Post Debridement Size (cm) - Depth 0.5 -Total Square Cm 25.2 -Wound/Ulcer Outcome Not Healed -Ulcer Cleansing Rinsed/ Irrigated with Saline -Foul Odor after Cleansing No -Bioengineered Tissue No -Bleeding Controlled with Pressure -Offloading No -Treatment Response Procedure Tolerated Well #5 Right Ischium -Time 12:20 -Correct Patient Yes -Correct Side, Site, Position Yes -Correct Procedure Yes -Procedure Performed Yes -Type of Procedure Debridement -Clinical Debridement Muscle -Post Debridement Size (cm) - Length 3 -Post Debridement Size (cm) - Width 4.3 -Post Debridement Size (cm) - Depth 1.7 -Total Square Cm 12.9 -Wound/Ulcer Outcome Not Healed -Ulcer Cleansing Rinsed/ Irrigated with Saline -Foul Odor after Cleansing No -Bioengineered Tissue No -Bleeding Controlled with Pressure -Offloading No -Treatment Response Procedure Tolerated Well Pain Scale: 0-10 Numeric Is Patient Pain Free? Yes Wound debrided: #5 Right ischial area. Laterality: Right Wound Grade/Stage: IV. Type of Debridement: Excisional debridement Anesthesia Used: 4% Lidocaine Solution Depth: Down to and including healthy tissue, in the subcutaneous layer, to muscle, to bone - bone is palpable but not debrided. Percentage of wound debrided: 100 Instrument Used: 7mm curette Tissue Removed: subcutaneous tissue and muscle. Severity: Fat Layer Exposed - muscle is exposed. bone is palpable but not debrided. Amount of bleeding with debridement: Mild Bleeding Controlled with: Pressure Patient tolerated procedure well - Additional Wound Wound debrided: #6 Left ischial area. Laterality: Left Wound Grade/Stage: IV. Type of Debridement: Excisional debridement Anesthesia Used: 4% Lidocaine Solution Depth: Down to and including healthy tissue, in the subcutaneous layer, to muscle, to bone - bone is palpable but not debrided. Percentage of wound debrided: 100 Instrument Used: 7mm curette Tissue Removed: subcutaneous tissue and muscle. Severity: Fat Layer Exposed - muscle is exposed. bone is palpable but not debrided. Amount of bleeding with debridement: Mild Bleeding Controlled with: Pressure Patient tolerated procedure: Patient tolerated procedure well Assessment/Plan Assessment: 1. Right ischial pressure sore with extension to perineal area, Stage IV. 2. Left ischial pressure sore with extension to the femur, Stage IV. 3. Paraplegia, longstanding. 4. History of MRSA. 5. History of osteomyelitis with multiple prior surgeries. 6. Smoker. Plan: Continue Aquacel silver dressing changes daily to both ischial pressure sores. He has finished the Levaquin and has tolerated them. The wound culture from 01/16/19 showed Morganella morganii sp sibonii, Pseudomonas aeroginosa, E. coli, Streptococcus mitis, Corynebacterium striatum, and Bacteroides fragilis. Encourage nutritional supplementation with protein to help the healing process. Encouraged the patient to stop smoking as it may have deleterious effects on wound healing. Followup 4 weeks.
== END 2019-04-09 23:59 ==
LOC: WC 10:53
PROVIDERS: Family Provider Family Medicine; PCP Family Medicine; Visit Provider Surgery
DX: L89.224 Pressure ulcer of left hip, stage 4 (principal); L89.214 Pressure ulcer of right hip, stage 4; F17.200 Nicotine dependence, unspecified, uncomplicated; G82.20 Paraplegia, unspecified; Z86.14 Personal history of Methicillin resistant Staphylococcus aureus infection
CPT/HCPCS: 11043; 11046

== ENCOUNTER 2019-04-17 05:07 | Outpatient (RCR) | payer MEDICAID, MEDICARE, SELFPAY ==
[2019-04-10 00:32] VITALS: BP 117/61; PULSE 66; RESP 18; TEMP 36.9
== END 2019-05-10 23:59 ==
LOC: WC 05:07
PROVIDERS: Family Provider Family Medicine; PCP Family Medicine; Visit Provider Surgery
DX: Z09 Encounter for follow-up examination after completed treatment for conditions other than malignant neoplasm (principal)

== ENCOUNTER 2019-05-15 08:56 | Outpatient (RCR) | payer MEDICARE, MEDICAID, SELFPAY ==
[2019-05-11 00:37] VITALS: BP 117/61; PULSE 66; RESP 18; TEMP 36.9
[2019-05-15 11:31] VITALS: BP 124/76; PULSE 90; RESP 18; TEMP 36.4
--- NOTE | 2019-05-15 13:39 | PN.PCM_ITS ---
(1) Right ischial pressure sore, stage 4 Status: Chronic Code(s): L89.314 - Pressure ulcer of right buttock, stage 4 (2) Chronic paraplegia Status: Chronic Code(s): G82.20 - Paraplegia, unspecified (3) Smoker Status: Chronic Code(s): F17.200 - Nicotine dependence, unspecified, uncomplicated (4) left ischial pressure sore, stage IV Status: Chronic Code(s): L89.324 - Pressure ulcer of left buttock, stage 4 Comment: extending to the left femur (5) Pseudomonas aeruginosa infection Status: Acute Code(s): A49.8 - Other bacterial infections of unspecified site Type of Wound Date of Service: 05/15/19 Chief Complaint: Bilateral ischial pressure sores, Stage IV. History of Wound: Patient has long standing bilateral ischial pressure sores, Stage IV, with the left side extending to the femoral head and the right side extending to the perineal area and the prostate. Surgery would entail quite extensive excision with amputations at a tertiary center. Patient does not want to pursue any heroic surgeries at this time since it is not a guarantee his pressure issues won't recur. With aggressive amputations, his already tenuous balance would be even more disrupted. Today he denies any fever but states he is not feeling well. His appetite is ok. At the present time, we are providing conservative care on a monthly basis. At his last visit on 01/16/19, he had a wound culture which showed Morganella morganii sp sibonii, Pseudomonas aeroginosa, E. coli, Streptococcus mitis, Corynebacterium striatum, and Bacteroides fragilis. He saw Infectious Diseases and was treated with Levaquin. Progress of Wound: Stable. - Physical Exam Vital Signs Temp Pulse Resp BP 97.6 F L 90 18 124/76 H 05/15/19 11:31 05/15/19 11:31 05/15/19 11:31 05/15/19 11:31 General: Oriented x3, Cooperative HEENT: Atraumatic Oral: Moist Mucosa Lungs: Normal air movement Cardiovascular: Regular rate Abdomen: Bowel Sounds Present Extremities: Capillary Refill Less than 3 Seconds Skin: Ulcer/ Wound - Right and left ischial ulcers Wound Measurements and Assessment WC - Nurse 1 - General Ulcer Measurement Start: 05/15/19 11:30 Freq: Status: Active Protocol: Activity Type Activity Date Activity User E-Sign Co-Sign Detail Recorded Client Recorded Date Recorded By Document 05/15/19 11:31 DL [id number] 05/15/19 11:45 DL 05/15/19 11:31 Wound Center Nurse 1 [Ulcer Assessment] #8 L Ischium -Current Size (cm) - Length 4.4 -Current Size (cm) - Width 6 -Current Size (cm) - Depth 0.7 -Total Square Cm 26.4 -Photo Taken Yes -Undermining/Tunneling Starts (O' 9 clock) -Undermining/Tunneling Ends (O'clock) 1 -Maximum Distance (cm) 1.2 -Exudate Amt Medium -Exudate Type Serosanguineous -Wound Margin Thickened & Rolled Under -Granulation Amt Medium (34-66%) -Granulation Quality Red -Necrosis Amt Medium (34-66%) -Necrotic Tissue Type Adherent Slough -Structure Exposed N/A -Texture (Steffi-wound Skin Appearance) Scarring -Moisture (Steffi-wound Skin Appearance Maceration ) -Color (Steffi-wound Skin Appearance) Rubor -Temperature (Steffi-wound Skin No Abnormality Appearance) (Pt Warm) -Tenderness on Palpation (Steffi-wound No Skin Appearance) -Ulcer Cleansing Rinsed/ Irrigated with Saline -Foul Odor after Cleansing No -Anesthetic Used 4% Lidocaine Solution #7 R Ischium -Current Size (cm) - Length 2.2 -Current Size (cm) - Width 5 -Current Size (cm) - Depth 1.2 -Total Square Cm 11.0 -Photo Taken Yes -Exudate Amt Medium -Exudate Type Serosanguineous -Wound Margin Thickened & Rolled Under -Granulation Amt Medium (34-66%) -Granulation Quality Red -Necrosis Amt Medium (34-66%) -Necrotic Tissue Type Adherent Slough -Structure Exposed N/A -Texture (Steffi-wound Skin Appearance) Scarring -Moisture (Steffi-wound Skin Appearance No Abnormality ) -Color (Steffi-wound Skin Appearance) Ecchymosis, Rubor -Tenderness on Palpation (Steffi-wound No Skin Appearance) -Ulcer Cleansing Rinsed/ Irrigated with Saline -Foul Odor after Cleansing No -Anesthetic Used 4% Lidocaine Solution WC - Nurse 2 - General Ulcer CM Notes Start: 05/15/19 11:30 Freq: Status: Active Protocol: Activity Type Activity Date Activity User E-Sign Co-Sign Detail Recorded Client Recorded Date Recorded By Document 05/15/19 12:36 [id number] 05/15/19 12:37 05/15/19 12:36 Wound Center Nurse 2 [Procedure/Treatment] #8 L Ischium -Time 12:36 -Correct Patient Yes -Correct Side, Site, Position Yes -Correct Procedure Yes -Procedure Performed Yes -Type of Procedure Debridement -Clinical Debridement Muscle -Post Debridement Size (cm) - Length 6 -Post Debridement Size (cm) - Width 6.5 -Post Debridement Size (cm) - Depth 0.4 -Total Square Cm 39.0 -Wound/Ulcer Outcome Not Healed -Ulcer Cleansing Rinsed/ Irrigated with Saline -Foul Odor after Cleansing No -Bioengineered Tissue No -Bleeding Controlled with Pressure -Offloading No -Treatment Response Procedure Tolerated Well #7 R Ischium -Time 12:36 -Correct Patient Yes -Correct Side, Site, Position Yes -Correct Procedure Yes -Procedure Performed Yes -Type of Procedure Debridement -Clinical Debridement Muscle -Post Debridement Size (cm) - Length 3.5 -Post Debridement Size (cm) - Width 3.8 -Post Debridement Size (cm) - Depth 0.6 -Total Square Cm 13.30 -Wound/Ulcer Outcome Not Healed -Ulcer Cleansing Rinsed/ Irrigated with Saline -Foul Odor after Cleansing No -Bioengineered Tissue No -Bleeding Controlled with Pressure -Offloading No -Treatment Response Procedure Tolerated Well [See Physician Procedure note for Specifics] Pain Scale: 0-10 Numeric [Pain] -Is Patient Pain Free? Yes Musculoskeletal: No Tenderness to Palpation of Joints or Extremities Neurological: Neuro grossly intact Psych/Mental Status: Normal Affect, Appropriate Debridement Note Post-Debridement Measurements/Treatment WC - Nurse 2 - General Ulcer CM Notes Start: 05/15/19 11:30 Freq: Status: Active Protocol: Activity Type Activity Date Activity User E-Sign Co-Sign Detail Recorded Client Recorded Date Recorded By Document 05/15/19 12:36 [email or web address] [id number] 05/15/19 12:37 05/15/19 12:36 Wound Center Nurse 2 #8 L Ischium -Time 12:36 -Correct Patient Yes -Correct Side, Site, Position Yes -Correct Procedure Yes -Procedure Performed Yes -Type of Procedure Debridement -Clinical Debridement Muscle -Post Debridement Size (cm) - Length 6 -Post Debridement Size (cm) - Width 6.5 -Post Debridement Size (cm) - Depth 0.4 -Total Square Cm 39.0 -Wound/Ulcer Outcome Not Healed -Ulcer Cleansing Rinsed/ Irrigated with Saline -Foul Odor after Cleansing No -Bioengineered Tissue No -Bleeding Controlled with Pressure -Offloading No -Treatment Response Procedure Tolerated Well #7 R Ischium -Time 12:36 -Correct Patient Yes -Correct Side, Site, Position Yes -Correct Procedure Yes -Procedure Performed Yes -Type of Procedure Debridement -Clinical Debridement Muscle -Post Debridement Size (cm) - Length 3.5 -Post Debridement Size (cm) - Width 3.8 -Post Debridement Size (cm) - Depth 0.6 -Total Square Cm 13.30 -Wound/Ulcer Outcome Not Healed -Ulcer Cleansing Rinsed/ Irrigated with Saline -Foul Odor after Cleansing No -Bioengineered Tissue No -Bleeding Controlled with Pressure -Offloading No -Treatment Response Procedure Tolerated Well Pain Scale: 0-10 Numeric Is Patient Pain Free? Yes Wound debrided: Right ischial ulcer Laterality: Right Type of Debridement: Excisional debridement Anesthesia Used: 4% Lidocaine Solution Depth: Down to and including healthy tissue, in the subcutaneous layer, to muscle Percentage of wound debrided: 100 Instrument Used: 7mm curette Tissue Removed: Subcutaneous tissue and slough Severity: Fat Layer Exposed Amount of bleeding with debridement: Mild Bleeding Controlled with: Compression and gauze Patient tolerated procedure well - Additional Wound Wound debrided: Left ischial ulcer Laterality: Left Type of Debridement: Excisional debridement Anesthesia Used: 4% Lidocaine Solution Depth: Down to and including healthy tissue, in the subcutaneous layer, to muscle Percentage of wound debrided: 100 Instrument Used: 7mm curette Tissue Removed: Subcutaneous tissue and slough Severity: Fat Layer Exposed Amount of bleeding with debridement: Mild Bleeding Controlled with: Compression and gauze Patient tolerated procedure: Patient tolerated procedure well Assessment/Plan Assessment: 1. Right ischial pressure sore with extension to perineal area, Sta ge IV. 2. Left ischial pressure sore with extension to the femur, Stage IV. 3. Paraplegia, longstanding. 4. History of MRSA. 5. History of osteomyelitis with multiple prior surgeries. 6. Smoker. Plan: Continue Aquacel silver dressing changes daily to both ischial pressure sores. He has finished the Levaquin and has tolerated them. The wound culture from 01/16/19 showed Morganella morganii sp sibonii, Pseudomonas aeroginosa, E. coli, Streptococcus mitis, Corynebacterium striatum, and Bacteroides fragilis. Due to him not feeling well and the right ulcer has a green, odiferous biofilm will culture ulcers today. Patient is having issues with pain and his PCP who managed his pain is now . He is an appointment to establish with Dr. Gardner at the end of the month. Will prescribe Vicodin prn for pain. [place] report reviewed with no suspicious activity. Encourage nutritional supplementation with protein to help the healing process. Encouraged the mayi ent to stop smoking as it may have deleterious effects on wound healing. Followup 3 weeks. Code Visit [id number]: [id number] Manisha musc/fascia 20 sq cm/< Add On Codes: 40861 Manisha musc/fascia add-on
== END 2019-06-10 23:59 ==
LOC: WC 08:56
PROVIDERS: Family Provider Family Medicine; PCP Family Medicine; Referring Provider Surgery; Visit Provider Surgery
DX: L89.214 Pressure ulcer of right hip, stage 4 (principal); G82.20 Paraplegia, unspecified; Z86.14 Personal history of Methicillin resistant Staphylococcus aureus infection; L89.224 Pressure ulcer of left hip, stage 4; F17.200 Nicotine dependence, unspecified, uncomplicated
CPT/HCPCS: 11043; 11046; 87070; 87075; 87077; 87186; 87205

== ENCOUNTER 2019-06-19 09:23 | Outpatient (RCR) | payer MEDICARE, MEDICAID, SELFPAY ==
[2019-06-11 00:32] VITALS: BP 124/76; PULSE 90; RESP 18; TEMP 36.4
[2019-06-19 11:27] VITALS: BP 101/72; PULSE 118; RESP 18; TEMP 36.4
--- NOTE | 2019-06-19 22:38 | PCM.WC.PN ---
Type of Wound Date of Service: 06/19/19 Chief Complaint: Bilateral ischial pressure sores, Stage IV. History of Wound: Patient has long standing bilateral ischial pressure sores, Stage IV, with the left side extending to the femoral head and the right side extending to the perineal area and the prostate. Surgery would entail quite extensive excision with amputations at a tertiary center. Patient does not want to pursue any heroic surgeries at this time since it is not a guarantee his pressure issues won't recur. With aggressive amputations, his already tenuous balance would be even more disrupted. Today he denies any fever. His appetite is ok. At the present time, we are providing conservative care on a monthly basis. He had a recent wound culture on 05/15/19. It showed MRSA, Proteus mirabilis, Klebsiella oxytoca, Pseudomonas aeroginosa, Bacteroides fragilis, and Anaerobic cocci. He was treated wtih Doxycycline and Augmentin as well as Acetic Acid dressing changes. Progress of Wound: Stable. - Physical Exam Vital Signs Temp Pulse Resp BP 97.5 F L 118 H 18 101/72 06/19/19 11:27 06/19/19 11:27 06/19/19 11:27 06/19/19 11:27 Wound Measurements and Assessment WC - Nurse 1 - General Ulcer Measurement Start: 06/19/19 11:27 Freq: Status: Active Protocol: Activity Type Activity Date Activity User E-Sign Co-Sign Detail Recorded Client Recorded Date Recorded By Document 06/19/19 11:27 MW [id number] 06/19/19 11:42 MW 06/19/19 11:27 Wound Center Nurse 1 [Ulcer Assessment] #8 L Ischium -Current Size (cm) - Length 5.5 -Current Size (cm) - Width 6.7 -Current Size (cm) - Depth 0.7 -Total Square Cm 36.85 -Date of Last Picture (Recall this 06/19/19 field) -Photo Taken Yes -Classification - Thickness Full Thickness with Exposed Support Structure -Exudate Amt Medium -Exudate Type Serosanguineous -Wound Margin Thickened -Granulation Amt Medium (34-66%) -Granulation Quality Red -Slough/Fibrin Yes -Necrosis Amt Medium (34-66%) -Necrotic Tissue Type Adherent Slough -Structure Exposed Muscle,Fat Layer Exposed -Texture (Steffi-wound Skin Appearance) Assessed -Moisture (Steffi-wound Skin Appearance Assessed, ) Maceration -Color (Steffi-wound Skin Appearance) Assessed -Temperature (Steffi-wound Skin No Abnormality Appearance) (Pt Warm) -Tenderness on Palpation (Steffi-wound No Skin Appearance) -Ulcer Cleansing Rinsed/ Irrigated with Saline -Foul Odor after Cleansing No -Anesthetic Used 4% Lidocaine Solution #7 R Ischium -Current Size (cm) - Length 5.7 -Current Size (cm) - Width 3.5 -Current Size (cm) - Depth 1.4 -Total Square Cm 19.95 -Date of Last Picture (Recall this 06/19/19 field) -Photo Taken Yes -Classification - Thickness Full Thickness with Exposed Support Structure -Exudate Amt Medium -Exudate Type Serosanguineous -Wound Margin Thickened -Granulation Amt Small (1-33%) -Granulation Quality Red -Slough/Fibrin Yes -Necrosis Amt Large (67-100%) -Necrotic Tissue Type Adherent Slough -Structure Exposed Muscle,Fat Layer Exposed -Texture (Steffi-wound Skin Appearance) Assessed -Moisture (Steffi-wound Skin Appearance Assessed, ) Maceration -Color (Stfefi-wound Skin Appearance) Assessed -Temperature (Steffi-wound Skin No Abnormality Appearance) (Pt Warm) -Tenderness on Palpation (Steffi-wound No Skin Appearance) -Ulcer Cleansing Rinsed/ Irrigated with Saline -Foul Odor after Cleansing No -Anesthetic Used 4% Lidocaine Solution WC - Nurse 2 - General Ulcer CM Notes Start: 06/19/19 11:27 Freq: Status: Active Protocol: Activity Type Activity Date Activity User E-Sign Co-Sign Detail Recorded Client Recorded Date Recorded By Document 06/19/19 12:09 DEBORAH [id number] 06/19/19 12:12 DEBORAH 06/19/19 12:09 Wound Center Nurse 2 [Procedure/Treatment] #8 L Ischium -Time 12:09 -Correct Patient Yes -Correct Side, Site, Position Yes -Correct Procedure Yes -Procedure Performed Yes -Type of Procedure Debridement -Clinical Debridement Muscle -Post Debridement Size (cm) - Length 5.5 -Post Debridement Size (cm) - Width 6.8 -Post Debridement Size (cm) - Depth 0.7 -Total Square Cm 37.40 -Wound/Ulcer Outcome Not Healed -Ulcer Cleansing Rinsed/ Irrigated with Saline -Foul Odor after Cleansing No -Bioengineered Tissue No -Bleeding Controlled with Pressure -Offloading No -Treatment Response Procedure Tolerated Well #7 R Ischium -Time 12:09 -Correct Patient Yes -Correct Side, Site, Position Yes -Correct Procedure Yes -Procedure Performed Yes -Type of Procedure Debridement -Clinical Debridement Muscle -Post Debridement Size (cm) - Length 5.8 -Post Debridement Size (cm) - Width 3.5 -Post Debridement Size (cm) - Depth 1.5 -Total Square Cm 20.30 -Wound/Ulcer Outcome Not Healed -Ulcer Cleansing Rinsed/ Irrigated with Saline -Foul Odor after Cleansing No -Bioengineered Tissue No -Bleeding Controlled with Pressure -Offloading No -Treatment Response Procedure Tolerated Well [See Physician Procedure note for Specifics] Pain Scale: 0-10 Numeric [Pain] -Is Patient Pain Free? Yes Debridement Note Post-Debridement Measurements/Treatment WC - Nurse 2 - General Ulcer CM Notes Start: 06/19/19 11:27 Freq: Status: Active Protocol: Activity Type Activity Date Activity User E-Sign Co-Sign Detail Recorded Client Recorded Date Recorded By Document 06/19/19 12:09 DEBORAH [id number] 06/19/19 12:12 DEBORAH 06/19/19 12:09 Wound Center Nurse 2 #8 L Ischium -Time 12:09 -Correct Patient Yes -Correct Side, Site, Position Yes -Correct Procedure Yes -Procedure Performed Yes -Type of Procedure Debridement -Clinical Debridement Muscle -Post Debridement Size (cm) - Length 5.5 -Post Debridement Size (cm) - Width 6.8 -Post Debridement Size (cm) - Depth 0.7 -Total Square Cm 37.40 -Wound/Ulcer Outcome Not Healed -Ulcer Cleansing Rinsed/ Irrigated with Saline -Foul Odor after Cleansing No -Bioengineered Tissue No -Bleeding Controlled with Pressure -Offloading No -Treatment Response Procedure Tolerated Well #7 R Ischium -Time 12:09 -Correct Patient Yes -Correct Side, Site, Position Yes -Correct Procedure Yes -Procedure Performed Yes -Type of Procedure Debridement -Clinical Debridement Muscle -Post Debridement Size (cm) - Length 5.8 -Post Debridement Size (cm) - Width 3.5 -Post Debridement Size (cm) - Depth 1.5 -Total Square Cm 20.30 -Wound/Ulcer Outcome Not Healed -Ulcer Cleansing Rinsed/ Irrigated with Saline -Foul Odor after Cleansing No -Bioengineered Tissue No -Bleeding Controlled with Pressure -Offloading No -Treatment Response Procedure Tolerated Well Pain Scale: 0-10 Numeric Is Patient Pain Free? Yes Wound debrided: #7 Right ischial area. Laterality: Right Wound Grade/Stage: IV. Type of Debridement: Excisional debridement Anesthesia Used: 4% Lidocaine Solution Depth: Down to and including healthy tissue, in the subcutaneous layer, to muscle, to bone - bone is palpable but not debrided. Percentage of wound debrided: 100 Instrument Used: 7mm curette Tissue Removed: subcutaneous tissue and muscle. Severity: Fat Layer Exposed - muscle is exposed. bone is palpable but not debrided. Amount of bleeding with debridement: Mild Bleeding Controlled with: Pressure Patient tolerated procedure well - Additional Wound Wound debrided: #8 Left ischial area. Laterality: Left Wound Grade/Stage: IV. Type of Debridement: Excisional debridement Anesthesia Used: 4% Lidocaine Solution Depth: Down to and including healthy tissue, in the subcutaneous layer, to muscle, to bone - bone is palpable but not debrided. Percentage of wound debrided: 100 Instrument Used: 7mm curette Tissue Removed: subcutaneous tissue and muscle. Severity: Fat Layer Exposed - muscle is exposed. bone is palpable but not debrided. Amount of bleeding with debridement: Mild Bleeding Controlled with: Pressure Patient tolerated procedure: Patient tolerated procedure well Assessment/Plan Assessment: 1. Right ischial pressure sore with extension to perineal area, Stage IV. 2. Left ischial pressure sore with extension to the femur, Stage IV. 3. Paraplegia, longstanding. 4. History of MRSA. 5. History of osteomyelitis with multiple prior surgeries. 6. Smoker. Plan: Continue Acetic Acid dressing changes daily to both ischial pressure sores. He had a recent wound culture on 05/15/19. It showed MRSA, Proteus mirabilis, Klebsiella oxytoca, Pseudomonas aeroginosa, Bacteroides fragilis, and Anaerobic cocci. He was placed on Doxycycline and Augmentin and has finished them. Encourage nutritional supplementation with protein to help the healing process. Encouraged the patient to stop smoking as it may have deleterious effects on wound healing. Followup 4 weeks.
== END 2019-07-10 23:59 ==
LOC: WC 09:23
PROVIDERS: Family Provider Family Medicine; PCP Internal Medicine; Referring Provider Surgery; Visit Provider Surgery
DX: L89.224 Pressure ulcer of left hip, stage 4 (principal); L89.214 Pressure ulcer of right hip, stage 4; G82.20 Paraplegia, unspecified; Z86.14 Personal history of Methicillin resistant Staphylococcus aureus infection; F17.200 Nicotine dependence, unspecified, uncomplicated
CPT/HCPCS: 11043; 11046

== ENCOUNTER → 2019-06-19 12:44 | Outpatient (CLI) | payer MEDICARE, MEDICAID, SELFPAY ==
--- NOTE | 2019-06-19 13:00 | RAD_ITS ---
HISTORY: SOB EXAM: XR Chest 2 Views: COMPARISON: October 03, 2015 FINDINGS: # of images incl. paperwork: 3 Lungs are clear. Heart is not enlarged. Severe levoscoliosis to the lower thoracic spine and dextroscoliosis within the lumbar spine is similar Pulmonary vascularity is distinct. No effusions. RAD/Chest PA and Lateral IMPRESSION: No acute cardiopulmonary disease. at 0609 Reported and signed by: Cholo Mckeon MD Electronically Signed: Cholo Mckeon MD at 6:08 EDT Tel , Service support ,
[2019-06-19 13:41] LABS: Absolute Lymphocyte Count 1.75 X10^3/uL (0.83-4.51); Basophil# 0.06 X10^3/uL; Basophil% 0.5 % (0-1); Eosinophil# 0.17 X10^3/uL; Eosinophils% 1.5 % (0-5); Hemoglobin 13.4 g/dL (13.0-16.5); Lymphocyte # 1.75 X10^3/ul (4.0); Lymphocyte % 15.6 % (19-41); Mean Corp Hgb Conc 31.9 g/dL (32-36); Mean Corpuscular Hgb 28.1 pg (27.0-32.0); Mean Corpuscular Volume 88.1 fL (80-94); Mean Platelet Vol. 9.7 fl (6.2-12.0); Monocyte# 1.16 X10^3/uL; Monocyte% 10.3 % (0-10); NRBC Flagged by Analyzer 0 % (0-5); Neutrophil # 8.03 X10^3/uL (2.7-7.7); Neutrophil % 71.7 % (47-70); Platelet Count 457 K/mm3 (150-450); RBC Distribution Width CV 13.9 % (11.6-14.6); Red Blood Count 4.77 M/mm3 (4.6-6.2); White Blood Count 11.2 K/mm3 (4.4-11.0)
[2019-06-19 14:07] LABS: ALB/GLOB Ratio 0.7 RATIO (0.9-2.4); AST(SGOT) 19 U/L (15-37); Alanine Aminotransfer ALT/SGPT 16 U/L (16-61); Albumin, Serum 2.9 g/dL (3.2-5.0); Alkaline Phosphatase 211 U/L (45-117); Anion Gap 7 (5-15); BUN 28 mg/dL (7-18); BUN/Creat Ratio 38.7 RATIO (10-20); Calcium,Total 8.8 mg/dL (8.5-10.1); Chloride 107 mmol/L (98-107); Creatinine, Serum 0.72 mg/dL (0.70-1.30); EST Glomerular Filtration Rate 121 mL/min (>60); Est Glom Filt Rate - Afr Amer 147 mL/min (>60); Glucose 97 mg/dL (74-106); Potassium 4.1 mmol/L (3.5-5.1); Protein, Total 6.9 g/dL (6.4-8.2); Sodium Level 139 mmol/L (136-145)
== END ==
PROVIDERS: Family Provider Internal Medicine; PCP Internal Medicine; Referring Provider Internal Medicine; Visit Provider Internal Medicine
DX: R06.02 Shortness of breath (principal); R53.81 Other malaise; R53.83 Other fatigue; L89.224 Pressure ulcer of left hip, stage 4; L89.214 Pressure ulcer of right hip, stage 4; G82.20 Paraplegia, unspecified; Z86.14 Personal history of Methicillin resistant Staphylococcus aureus infection; F17.200 Nicotine dependence, unspecified, uncomplicated
CPT/HCPCS: 11043; 11046; 36415; 71046; 80053; 85025

== ENCOUNTER 2019-07-17 08:37 | Outpatient (RCR) | payer MEDICARE, MEDICAID, SELFPAY ==
[2019-07-11 00:34] VITALS: BP 101/72; PULSE 118; RESP 18; TEMP 36.4
[2019-07-17 11:29] VITALS: BP 102/63; PULSE 117; RESP 16
--- NOTE | 2019-07-17 23:12 | PCM.WC.PN ---
Type of Wound Date of Service: 07/17/19 Chief Complaint: Bilateral ischial pressure sores, Stage IV. History of Wound: Patient has long standing bilateral ischial pressure sores, Stage IV, with the left side extending to the femoral head and the right side extending to the perineal area and the prostate. Surgery would entail quite extensive excision with amputations at a tertiary center. Patient does not want to pursue any heroic surgeries at this time since it is not a guarantee his pressure issues won't recur. With aggressive amputations, his already tenuous balance would be even more disrupted. Today he denies any fever. His appetite is ok. At the present time, we are providing conservative care on a monthly basis. He had a recent wound culture on 05/15/19. It showed MRSA, Proteus mirabilis, Klebsiella oxytoca, Pseudomonas aeroginosa, Bacteroides fragilis, and Anaerobic cocci. He was treated wtih Doxycycline and Augmentin as well as Acetic Acid dressing changes. He states his right leg gets in the way when transferring. He is interested in proceeding with a BKA. Progress of Wound: Stable. - Physical Exam Vital Signs Temp Pulse Resp BP 97.5 F L 117 H 16 102/63 07/11/19 00:34 07/17/19 11:29 07/17/19 11:29 07/17/19 11:29 Wound Measurements and Assessment WC - Nurse 1 - General Ulcer Measurement Start: 07/17/19 11:29 Freq: Status: Active Protocol: Activity Type Activity Date Activity User E-Sign Co-Sign Detail Recorded Client Recorded Date Recorded By Document 07/17/19 11:29 MW [id number] 07/17/19 11:40 MW 07/17/19 11:29 Wound Center Nurse 1 [Ulcer Assessment] #8 L Ischium -Combined with other wound No -Current Size (cm) - Length 6.4 -Current Size (cm) - Width 58.5 -Current Size (cm) - Depth 0.5 -Total Square Cm 374.40 -Photo Taken No -Epithelialization None Present -Tunneling No -Undermining/Tunneling No -Circular Undermining No -Exudate Amt Large -Exudate Type Serous -Wound Margin Epibole -Granulation Amt Large (67-100%) -Granulation Quality [place] -Slough/Fibrin Yes -Necrosis Amt Small (1-33%) -Necrotic Tissue Type Adherent Slough -Structure Exposed N/A -Texture (Steffi-wound Skin Appearance) Assessed, Scarring -Moisture (Steffi-wound Skin Appearance No Abnormality, ) Maceration -Color (Steffi-wound Skin Appearance) No Abnormality, Assessed -Temperature (Steffi-wound Skin No Abnormality Appearance) (Pt Warm) -Tenderness on Palpation (Steffi-wound No Skin Appearance) -Ulcer Cleansing Rinsed/ Irrigated with Saline -Foul Odor after Cleansing No -Anesthetic Used 5% Lidocaine Gel #7 R Ischium -Combined with other wound No -Current Size (cm) - Length 4.4 -Current Size (cm) - Width 5.0 -Current Size (cm) - Depth 0.7 -Total Square Cm 22.00 -Photo Taken No -Epithelialization None Present -Tunneling No -Undermining/Tunneling No -Circular Undermining No -Exudate Amt Large -Exudate Type Serous -Wound Margin Epibole -Granulation Amt Large (67-100%) -Granulation Quality [place] -Slough/Fibrin Yes -Necrosis Amt Small (1-33%) -Necrotic Tissue Type Adherent Slough -Structure Exposed N/A -Texture (Steffi-wound Skin Appearance) Assessed, Scarring -Moisture (Steffi-wound Skin Appearance Assessed, ) Maceration -Color (Steffi-wound Skin Appearance) No Abnormality, Assessed -Temperature (Steffi-wound Skin No Abnormality Appearance) (Pt Warm) -Tenderness on Palpation (Steffi-wound Yes Skin Appearance) -Ulcer Cleansing Rinsed/ Irrigated with Saline -Foul Odor after Cleansing No -Anesthetic Used 5% Lidocaine Gel [Edema Assessment] -Lower Limb Edema Present No WC - Nurse 2 - General Ulcer CM Notes Start: 07/17/19 11:29 Freq: Status: Active Protocol: Activity Type Activity Date Activity User E-Sign Co-Sign Detail Recorded Client Recorded Date Recorded By Document 07/17/19 12:10 DEBORAH [id number] 07/17/19 12:13 DEBORAH 07/17/19 12:10 Wound Center Nurse 2 [Procedure/Treatment] #8 L Ischium -Time 12:10 -Correct Patient Yes -Correct Side, Site, Position Yes -Correct Procedure Yes -Procedure Performed Yes -Type of Procedure Debridement -Clinical Debridement Muscle -Post Debridement Size (cm) - Length 6.5 -Post Debridement Size (cm) - Width 5.5 -Post Debridement Size (cm) - Depth 0.5 -Total Square Cm 35.75 -Wound/Ulcer Outcome Not Healed -Ulcer Cleansing Rinsed/ Irrigated with Saline -Foul Odor after Cleansing No -Bioengineered Tissue No -Bleeding Controlled with Pressure -Offloading No -Treatment Response Procedure Tolerated Well #7 R Ischium -Time 12:10 -Correct Patient Yes -Correct Side, Site, Position Yes -Correct Procedure Yes -Procedure Performed Yes -Type of Procedure Debridement -Clinical Debridement Muscle -Post Debridement Size (cm) - Length 4.5 -Post Debridement Size (cm) - Width 5.1 -Post Debridement Size (cm) - Depth 0.8 -Total Square Cm 22.95 -Wound/Ulcer Outcome Not Healed -Ulcer Cleansing Rinsed/ Irrigated with Saline -Foul Odor after Cleansing No -Bioengineered Tissue No -Bleeding Controlled with Pressure -Offloading No -Treatment Response Procedure Tolerated Well [See Physician Procedure note for Specifics] Pain Scale: 0-10 Numeric [Pain] -Is Patient Pain Free? Yes Debridement Note Post-Debridement Measurements/Treatment WC - Nurse 2 - General Ulcer CM Notes Start: 07/17/19 11:29 Freq: Status: Active Protocol: Activity Type Activity Date Activity User E-Sign Co-Sign Detail Recorded Client Recorded Date Recorded By Document 07/17/19 12:10 DEBORAH [id number] 07/17/19 12:13 DEBORAH 07/17/19 12:10 Wound Center Nurse 2 #8 L Ischium -Time 12:10 -Correct Patient Yes -Correct Side, Site, Position Yes -Correct Procedure Yes -Procedure Performed Yes -Type of Procedure Debridement -Clinical Debridement Muscle -Post Debridement Size (cm) - Length 6.5 -Post Debridement Size (cm) - Width 5.5 -Post Debridement Size (cm) - Depth 0.5 -Total Square Cm 35.75 -Wound/Ulcer Outcome Not Healed -Ulcer Cleansing Rinsed/ Irrigated with Saline -Foul Odor after Cleansing No -Bioengineered Tissue No -Bleeding Controlled with Pressure -Offloading No -Treatment Response Procedure Tolerated Well #7 R Ischium -Time 12:10 -Correct Patient Yes -Correct Side, Site, Position Yes -Correct Procedure Yes -Procedure Performed Yes -Type of Procedure Debridement -Clinical Debridement Muscle -Post Debridement Size (cm) - Length 4.5 -Post Debridement Size (cm) - Width 5.1 -Post Debridement Size (cm) - Depth 0.8 -Total Square Cm 22.95 -Wound/Ulcer Outcome Not Healed -Ulcer Cleansing Rinsed/ Irrigated with Saline -Foul Odor after Cleansing No -Bioengineered Tissue No -Bleeding Controlled with Pressure -Offloading No -Treatment Response Procedure Tolerated Well Pain Scale: 0-10 Numeric Is Patient Pain Free? Yes Wound debrided: #7 Right ischial area. Laterality: Right Wound Grade/Stage: IV. Type of Debridement: Excisional debridement Anesthesia Used: 4% Lidocaine Solution Depth: Down to and including healthy tissue, in the subcutaneous layer, to muscle, to bone - bone is palpable but not debrided. Percentage of wound debrided: 100 Instrument Used: 7mm curette Tissue Removed: subcutaneous tissue and muscle. Severity: Fat Layer Exposed - muscle is exposed. bone is palpable but not debrided. Amount of bleeding with debridement: Mild Bleeding Controlled with: Pressure Patient tolerated procedure well - Additional Wound Wound debrided: #8 Left ischial area. Laterality: Left Wound Grade/Stage: IV. Type of Debridement: Excisional debridement Anesthesia Used: 4% Lidocaine Solution Depth: Down to and including healthy tissue, in the subcutaneous layer, to muscle, to bone - bone is palpable but not debrided. Percentage of wound debrided: 100 Instrument Used: 7mm curette Tissue Removed: subcutaneous tissue and muscle. Severity: Fat Layer Exposed - muscle is exposed. bone is palpable but not debrided. Amount of bleeding with debridement: Mild Bleeding Controlled with: Pressure Patient tolerated procedure: Patient tolerated procedure well Assessment/Plan Assessment: 1. Right ischial pressure sore with extension to perineal area, Stage IV. 2. Left ischial pressure sore with extension to the femur, Stage IV. 3. Paraplegia, longstanding. 4. History of MRSA. 5. History of osteomyelitis with multiple prior surgeries. 6. Smoker. Plan: Continue Acetic Acid dressing changes daily to both ischial pressure sores. He had a recent wound culture on 05/15/19. It showed MRSA, Proteus mirabilis, Klebsiella oxytoca, Pseudomonas aeroginosa, Bacteroides fragilis, and Anaerobic cocci. He was placed on Doxycycline and Augmentin and has finished them. Encourage nutritional supplementation with protein to help the healing process. Encouraged the patient to stop smoking as it may have deleterious effects on wound healing. Followup 4 weeks. Patient has expressed interest in a right BKA because he is having difficulty with transfer. He states the leg gets in the way. Will schedule the surgery.
== END 2019-08-10 23:59 ==
LOC: WC 08:37
PROVIDERS: Family Provider Internal Medicine; PCP Internal Medicine; Referring Provider Surgery; Visit Provider Surgery
DX: L89.224 Pressure ulcer of left hip, stage 4 (principal); L89.214 Pressure ulcer of right hip, stage 4; G82.20 Paraplegia, unspecified; F17.200 Nicotine dependence, unspecified, uncomplicated; Z86.14 Personal history of Methicillin resistant Staphylococcus aureus infection
CPT/HCPCS: 11043; 11046

== ENCOUNTER 2019-07-21 11:38 | Inpatient (IN) | payer MEDICARE, MEDICAID, SELFPAY ==
[2019-07-21] VITALS (7 sets, daily range): BP systolic 94–127; BP diastolic 46–83; PULSE 88–133; RESP 16–20; TEMP 36.5–37.3; O2SAT 98–100; BMI 19.5; BMI 18.2; BMI 18.3
--- NOTE | 2019-07-21 12:44 | EKG12_ITS ---
Test Reason : FLANK PAIN Blood Pressure : / mmHG Vent. Rate : 117 BPM Atrial Rate : 117 BPM P-R Int : 118 ms QRS Dur : 088 ms QT Int : 320 ms P-R-T Axes : 082 109 074 degrees QTc Int : 446 ms Sinus tachycardia Biatrial enlargement Rightward axis Pulmonary disease pattern Abnormal ECG Confirmed by AKIRA ANTOINE, JASKARAN ([id number]), deputy editor in chief BONIFACIO BARAJAS ([id number]) on 07/26/2019 9:42:34 A M Referred By: Mahsa Gloria Confirmed By:TRIP CHAMPION MD
--- NOTE | 2019-07-21 12:55 | RAD_ITS ---
EXAM DESCRIPTION: PORTABLE AP CHEST CLINICAL HISTORY: 54 years Male, COMPARISON: Preexistent ER on 06/19/2019 FINDINGS: There is severe levoscoliosis noted of the mid and lower thoracic spine. The rest of the thorax is intact. The heart and mediastinum appear to be within normal limits. The lungs appear to be well areated without evidence of pneumonic consolidation or pleural effusion. RAD/Chest 1 View (Portable) IMPRESSION: Moderate to severe levoscoliosis of the midthoracic spine, otherwise the chest shows no acute pathology. Electronically Signed: Kaleb Whaley, at 13:28 EDT Tel , Service support ,
[2019-07-21 13:12] LABS: Absolute Lymphocyte Count 0.29 X10^3/uL (0.83-4.51); Absolute Neutrophil Count 20.2 X10^3/uL (2.0-7.7); Basophil# 0.04 X10^3/uL; Basophil% 0.2 % (0-1); Eosinophil# 0.01 X10^3/uL; Hemoglobin 13.2 g/dL (13.0-16.5); Lymphocyte # 0.29 X10^3/ul (4.0); Lymphocyte % 1.3 % (19-41); Mean Corp Hgb Conc 32.2 g/dL (32-36); Mean Corpuscular Hgb 29.2 pg (27.0-32.0); Mean Corpuscular Volume 90.7 fL (80-94); Mean Platelet Vol. 9.7 fl (6.2-12.0); Monocyte# 0.84 X10^3/uL; Monocyte% 3.9 % (0-10); NRBC Flagged by Analyzer 0 % (0-5); Neutrophil # 20.15 X10^3/uL (2.7-7.7); Neutrophil % 92.5 % (47-70); POSITIVE DIFFERENTIAL YES; Platelet Count 345 K/mm3 (150-450); RBC Distribution Width CV 15.1 % (11.6-14.6); RBC Distribution Width SD 50.3 fl (35.1-43.9); Red Blood Count 4.52 M/mm3 (4.6-6.2); White Blood Count 21.8 K/mm3 (4.4-11.0)
[2019-07-21 13:14] LABS: Differential Indicated SCAN CRITERIA MET
[2019-07-21 13:15] LABS: International Normalized Ratio 1.1; Prothrombin Time (Protime)PT. 14.4 SECONDS (11.7-14.9)
[2019-07-21 13:16] LABS: Partial Thromboplast Time 39.7 Seconds (24.1-36.2)
[2019-07-21 13:20] LABS: ALB/GLOB Ratio 0.6 RATIO (0.9-2.4); AST(SGOT) 22 U/L (15-37); Alanine Aminotransfer ALT/SGPT 24 U/L (16-61); Albumin, Serum 2.7 g/dL (3.2-5.0); Alkaline Phosphatase 234 U/L (45-117); Anion Gap 8 (5-15); BUN 38 mg/dL (7-18); BUN/Creat Ratio 25.5 RATIO (10-20); Calcium,Total 9.1 mg/dL (8.5-10.1); Chloride 101 mmol/L (98-107); Creatinine, Serum 1.49 mg/dL (0.70-1.30); EST Glomerular Filtration Rate 53 mL/min (>60); Est Glom Filt Rate - Afr Amer 64 mL/min (>60); Estimated Creatinine Clearance 52.09 ml/min; Globulin 4.5 g/dL (2.2-4.2); Glucose 112 mg/dL (74-106); Protein, Total 7.2 g/dL (6.4-8.2); Sodium Level 132 mmol/L (136-145)
[2019-07-21] MEDS: 0.9% Normal Saline 1,000 ML 999 ML IV ×2 (13:20→14:29)
[2019-07-21] MEDS: Morphine 4 MG/ML Syringe IV (13:20)
[2019-07-21] MEDS: Ondansetron 4 MG/2 ML Vial IV ×3 (13:20→18:19)
[2019-07-21 13:24] LABS: Bacteria 0 SEEN /hpf (None Seen); Mucous, Urine 0 SEEN /hpf (<or=2+); Red Blood Cells-Urine 0 SEEN /hpf (0-5); Squamous Epithelial Cells - UA 0 SEEN /hpf (0-5)
[2019-07-21 13:27] LABS: Lactic Acid 2.9 mmol/L (0.4-2.0)
[2019-07-21 13:31] LABS: Color, Urine Yellow (Yellow); Glucose, Dipstick Normal (Normal); Ketone-Dipstick Negative (Negative); Leukocyte Esterase-Dipstick 500 /ul (Negative); Nitrite-Dipstick Negative (Negative); Occult Blood-Urine 25 /ul (Negative); Protein-Dipstick 30 mg/dl (Negative); Urine Bilirubin Dipstick Negative (Negative); Urine Clarity Sl. Cloudy (Clear); Urine Urobilinogen Normal (Normal)
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
[2019-07-21 13:37] LABS: Amorphous Sediment 1+; White Blood Cells 10-25 SEEN /hpf (0-5)
[2019-07-21 13:38] LABS: Fine Granular Cast- Urine 0-5 SEEN /lpf (0-5)
--- NOTE | 2019-07-21 13:40 | ED.RN ---
lactic 2.9 reported to
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
[2019-07-21] MEDS: Vancomycin IV 1,000 MG/200 ML BAG 200 MG IV (16:31)
[2019-07-21 17:03] LABS: Reflex Lactate? Y
--- NOTE | 2019-07-21 17:24 | ED.DCSUM_ITS ---
- ER Visit Summary Date of Service: 07/21/19 Chief Complaint: Abdominal pain History of Present Illness: The patient is a [address] Hughes and Dr. Jose. He reports that he has left upper abdominal pain and left flank pain that began 2 days ago. Its a stabbing pain is 10 to 10 hours and 7-10 curr ently. Reports is been nausea and had dry heaves. He has diarrhea that began yesterday. Has had 2 episodes. No blood in stools or black tarry stools. Patient has a urostomy and reports that he has had stones in his urostomy bag. He does not have a history of kidney stones. Patient complains of subjective fever, chills, sweats. He does report that he has mild shortness of breath and chest pain. He reports a little bit of headache. Physical Examination: Vitals: 99.2, 9457, 133, 18, 90% on room air which is not hypoxic. General: Well-nourished and well-developed. Head: Normocephalic atraumatic. Neck: Supple, no lymphadenopathy. No JVD. Nontender. Cardiovascular: Regular rate and rhythm. No murmurs. Respiratory: No respiratory distress. Clear to auscultation bilaterally. Abdominal: Soft, nontender, nondistended, normal bowel sounds. No guarding, rebound, or peritoneal signs. Urostomy is in place and draining well. Back: Nontender. Severe scoliosis. Extremities: Nontender, no edema. Left above-knee amputation. Skin: 2 large decubitus ulcers. 1 over the left lateral area. There is granulation tissue present. There is no drainage, odor, or surrounding erythema. A second larger ulcer over his right buttock. Again there is granulation tissue, no drainage, no odor, no surrounding erythema. Neither of these appear infected.. Neurologic: Alert and oriented ?3. Cranial nerves II through XII are intact. Normal strength and sensation. Psych: Normal affect. Test Results: EKG is sinus tachycardia 117 with biatrial enlargement. CBC is marked for white count of 21.8 with 93 segmented neutrophils 1 lymphocyte and 2.1% immature granulocytes. Lactic acid is 2.9. Chem-7 shows a sodium 132, glucose 112, BUN 30, creatinine 1.49. LFTs show an albumin of 2.7 globin of 4.5. Alk phos is 234. Coags are normal. UA only shows 10-25 white blood cells. This was obtained from his urostomy bag. Emergency Department Course and Treatment: Patient was given 30 cc/kg bolus of normal saline. He was given Zosyn and vancomycin IV. He was given morphine and Zofran IV. He is resting more comfortably. Treatment Plan: Patient was discussed with Dr. Gloria. He will be admitted to the hospital for further evaluation and treatment. At this time I do not think that the source of his sepsis is clear. Disposition: Admitted in improved condition. Impression: 1. Sepsis. 2. Decubitus ulcers. 3. Urinary tract infection. 4. Critical care time 30 minutes. This note was generated with [employer] dictation software. It may contain incorrect words, spelling, and punctuation that were not noted in review of the chart prior to signing ED Disposition - Plan for ED Patient: Disposition: Acute Care Hospital [facility]
[2019-07-21 18:02] LABS: Magnesium 1.6 mg/dL (1.6-2.6)
[2019-07-21] MEDS: 0.9% Normal Saline 1,000 ML 125 ML IV (18:05)
[2019-07-21] MEDS: Morphine 2 MG/ML Syringe IV (18:19)
[2019-07-21 18:45] LABS: Lactic Acid 1.4 mmol/L (0.4-2.0)
[2019-07-21] MEDS: Vancomycin IV 500 MG/100 ML BAG 100 MG IV (19:54)
[2019-07-21] MEDS: proMETHazine 25 MG/ML Syringe 12.5 MG IV (21:54)
[2019-07-21] MEDS: HYDROcodone Bitartrate/Apap 5/325 Tablet PO (23:00)
[2019-07-22] MEDS: proMETHazine 25 MG/ML Syringe 12.5 MG IV (03:39)
[2019-07-22 03:43] VITALS: BP 116/59; PULSE 80; RESP 16; TEMP 36.8; O2SAT 97
[2019-07-22] MEDS: Vancomycin IV 500 MG/100 ML BAG 100 MG IV ×2 (05:51→18:07)
[2019-07-22] MEDS: Enoxaparin 40 MG/0.4 ML Syringe SC (06:00)
[2019-07-22] MEDS: Morphine 2 MG/ML Syringe IV (06:06)
[2019-07-22 07:31] LABS: Absolute Lymphocyte Count 0.42 X10^3/uL (0.83-4.51); Absolute Neutrophil Count 8.7 X10^3/uL (2.0-7.7); Basophil# 0.01 X10^3/uL; Basophil% 0.1 % (0-1); Eosinophil# 0.01 X10^3/uL; Eosinophils% 0.1 % (0-5); Hematocrit 30.8 % (40-54); Hemoglobin 9.9 g/dL (13.0-16.5); Lymphocyte # 0.42 X10^3/ul (4.0); Lymphocyte % 4.2 % (19-41); Mean Corp Hgb Conc 32.1 g/dL (32-36); Mean Corpuscular Hgb 28.6 pg (27.0-32.0); Mean Platelet Vol. 9.9 fl (6.2-12.0); Monocyte# 0.75 X10^3/uL; Monocyte% 7.4 % (0-10); NRBC Flagged by Analyzer 0 % (0-5); Neutrophil # 8.68 X10^3/uL (2.7-7.7); Neutrophil % 85.8 % (47-70); POSITIVE DIFFERENTIAL YES; POSITIVE MORPHOLOGY YES; Platelet Count 218 K/mm3 (150-450); RBC Distribution Width CV 15.2 % (11.6-14.6); RBC Distribution Width SD 50.1 fl (35.1-43.9); Red Blood Count 3.46 M/mm3 (4.6-6.2); White Blood Count 10.1 K/mm3 (4.4-11.0)
[2019-07-22 07:48] LABS: Differential Indicated SCAN CRITERIA MET
[2019-07-22 08:05] LABS: Differential Comment SCANNED
[2019-07-22 08:09] LABS: ALB/GLOB Ratio 0.6 RATIO (0.9-2.4); AST(SGOT) 20 U/L (15-37); Alanine Aminotransfer ALT/SGPT 16 U/L (16-61); Albumin, Serum 1.8 g/dL (3.2-5.0); Alkaline Phosphatase 152 U/L (45-117); Anion Gap 7 (5-15); BUN 27 mg/dL (7-18); BUN/Creat Ratio 33.2 RATIO (10-20); Calcium,Total 7.9 mg/dL (8.5-10.1); Chloride 111 mmol/L (98-107); Creatinine, Serum 0.81 mg/dL (0.70-1.30); EST Glomerular Filtration Rate 106 mL/min (>60); Est Glom Filt Rate - Afr Amer 128 mL/min (>60); Estimated Creatinine Clearance 89.59 ml/min; Globulin 3.1 g/dL (2.2-4.2); Glucose 92 mg/dL (74-106); Potassium 3.9 mmol/L (3.5-5.1); Protein, Total 4.9 g/dL (6.4-8.2); Sodium Level 138 mmol/L (136-145)
[2019-07-22 08:36] VITALS: BP 117/52; PULSE 73; RESP 18; TEMP 36.5; O2SAT 100
[2019-07-22] MEDS: 0.9% Normal Saline 1,000 ML 125 ML IV ×2 (08:40→18:08)
[2019-07-22] MEDS: HYDROcodone Bitartrate/Apap 5/325 Tablet PO ×3 (08:47→23:50)
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
--- NOTE | 2019-07-22 10:04 | US_ITS ---
STUDY: ABDOMINAL ULTRASOUND - RIGHT UPPER QUADRANT REASON FOR VISIT: Male, 54 years old cholelithiasis TECHNIQUE: Ultrasound evaluation of the right upper quadrant was performed with real-time and static mayfield-scale imaging. TECHNICAL QUALITY: Adequate. COMPARISON: July 21, 2019 CT scan abdomen and pelvis FINDINGS: Liver: The liver measures 14 cm. There is increased echogenicity consistent with fatty infiltration. The bile ducts are within normal limits. There is hepatic color flow. The direction of portal flow is hepatopetal. There is no demonstrated mass lesion. Gallbladder: Normal distended gallbladder. The gallbladder wall measures 2.8 mm. There is a negative sonographic Patel's sign. There is no pericholecystic fluid. There is a 2.3 cm solitary gallstone. Common Bile Duct (C.B.D.): The common bile duct measures 6.2 mm. Pancreas: Normal size of the head, body and tail of the pancreas. There is normal echogenicity of the pancreas. There is no demonstrated pancreatic mass or cyst. Right Kidney: Normal size of the right kidney. The right kidney measures 11.3 x 5.2 x 4.4 cm. Normal renal cortex. The right cortex measures 1.3 cm. There is no demonstrated renal mass or cyst. There is a right-sided extrarenal pelvis. US/Gallbladder IMPRESSION: Cholelithiasis without evidence of cholecystitis. Hepatic steatosis. Electronically Signed: Padmini Ugarte MD at 15:15 EDT Tel , Service support ,
[2019-07-22 11:05] VITALS: O2SAT 98
[2019-07-22] MEDS: 0.9% NaCl Peripheral Flush Adult/Peds IV (13:32)
--- NOTE | 2019-07-22 15:49 | CM.UR ---
RN CM Assessment Introduced role of RN CM to patient. Patient is alert and able to participate in RN CM Assessment. Care providers, pharmacy, and demographics verified. No family at bedside. Presentation: flank pain, blood in urine. Has urostomy. Admit Dx: Hematuria, sepsis and decub ulcer Re-Admit: no Barriers/Issues: Lack of motivation. PCP: Rebeca Specialists: Cinthia ([facility]). Preferred Pharmacy: [facility]. Insurance: [facility]/REGINE Rx Benefit: yes REGINE. Has no copays LNOK: Father Wei. Girlfriend, Maranda LW/HPOA: No and declines information. Living Arrangements: Lives in home with father. Has 1 floor set up--basement with exit. ADL?s: States independent with all ADL's but needs assistance meals, house cleaning, etc. Transportation: Girlfriend. DME: Hosp bed with air mattress; w/c and slide board. Declines need for additional. DME co: no preference. HHC: several. [facility], [facility] to name a couple. SNF: None States he was in hospital x 7 months but never in SNF. Goal: return home. Denies needs. DC PLAN: Home, MARIANO Hill RN, CCM.
[2019-07-22 16:16] VITALS: BP 131/60; PULSE 71; RESP 18; TEMP 36.4; O2SAT 99
--- NOTE | 2019-07-22 17:38 | NURSING ---
This RN called micro. regarding enteric panel to see when it would be resulted. Notified Juve in micro that c.diff was resulted but that enteric is still pending. Notified that there was not enough stool to run testing and that another substantial specimen will need to be collected.
[2019-07-22 22:01] VITALS: BP 128/61; PULSE 81; RESP 16; TEMP 36.9; O2SAT 99
[2019-07-23] MEDS: 0.9% Normal Saline 1,000 ML 125 ML IV ×3 (00:48→18:06)
[2019-07-23 03:41] VITALS: BP 114/57; PULSE 67; RESP 16; TEMP 36.5; O2SAT 96
[2019-07-23] MEDS: Vancomycin IV 500 MG/100 ML BAG 100 MG IV ×2 (04:38→17:16)
--- NOTE | 2019-07-23 04:39 | NURSING ---
Primary RN in isolation room and requesting PRN zofran per orders, this RN pulled IV zofran from accudose for RN.
[2019-07-23] MEDS: Ondansetron 4 MG/2 ML Vial IV (04:43)
[2019-07-23 05:11] LABS: Absolute Neutrophil Count 8.9 X10^3/uL (2.0-7.7); Basophil# 0.02 X10^3/uL; Basophil% 0.2 % (0-1); Eosinophil# 0.03 X10^3/uL; Eosinophils% 0.3 % (0-5); Hematocrit 31.5 % (40-54); Hemoglobin 9.9 g/dL (13.0-16.5); Lymphocyte % 3.9 % (19-41); Mean Corp Hgb Conc 31.4 g/dL (32-36); Mean Corpuscular Hgb 28.4 pg (27.0-32.0); Mean Corpuscular Volume 90.3 fL (80-94); Mean Platelet Vol. 10.1 fl (6.2-12.0); Monocyte# 0.87 X10^3/uL; Monocyte% 8.5 % (0-10); NRBC Flagged by Analyzer 0 % (0-5); Neutrophil # 8.87 X10^3/uL (2.7-7.7); Neutrophil % 86.2 % (47-70); POSITIVE DIFFERENTIAL YES; Platelet Count 225 K/mm3 (150-450); RBC Distribution Width CV 15.4 % (11.6-14.6); RBC Distribution Width SD 51.2 fl (35.1-43.9); Red Blood Count 3.49 M/mm3 (4.6-6.2); White Blood Count 10.3 K/mm3 (4.4-11.0)
[2019-07-23 05:16] LABS: Differential Indicated SCAN CRITERIA MET
[2019-07-23 05:26] LABS: ALB/GLOB Ratio 0.6 RATIO (0.9-2.4); AST(SGOT) 16 U/L (15-37); Alanine Aminotransfer ALT/SGPT 13 U/L (16-61); Albumin, Serum 1.7 g/dL (3.2-5.0); Alkaline Phosphatase 135 U/L (45-117); Anion Gap 7 (5-15); BUN 17 mg/dL (7-18); Calcium,Total 7.4 mg/dL (8.5-10.1); Chloride 113 mmol/L (98-107); Creatinine, Serum 0.65 mg/dL (0.70-1.30); EST Glomerular Filtration Rate 136 mL/min (>60); Est Glom Filt Rate - Afr Amer 165 mL/min (>60); Estimated Creatinine Clearance 111.69 ml/min; Globulin 2.9 g/dL (2.2-4.2); Glucose 89 mg/dL (74-106); Potassium 3.4 mmol/L (3.5-5.1); Protein, Total 4.6 g/dL (6.4-8.2); Sodium Level 140 mmol/L (136-145)
--- NOTE | 2019-07-23 05:45 | PCM.RX.CS ---
Consult Pharmacy has been consulted to manage selected antiobiotic: Vancomycin Type of Consult: Follow-up Labs: Sodium 140 mmol/L (136-145) 07/23/19 04:18 Potassium 3.4 mmol/L (3.5-5.1) L 07/23/19 04:18 Chloride 113 mmol/L (98-107) H 07/23/19 04:18 Carbon Dioxide 20.0 mmol/L (21.0-32.0) L 07/23/19 04:18 Anion Gap 7 (5-15) 07/23/19 04:18 BUN 17 mg/dL (7-18) 07/23/19 04:18 Creatinine 0.65 mg/dL (0.70-1.30) L 07/23/19 04:18 Est GFR (MDRD) Af Amer 165 mL/min (>60) 07/23/19 04:18 Est GFR (MDRD) Non-Af 136 mL/min (>60) 07/23/19 04:18 BUN/Creatinine Ratio 26.0 RATIO (10-20) H 07/23/19 04:18 Glucose 89 mg/dL (74-106) 07/23/19 04:18 Vancomycin Trough 15.0 ug/mL (5.0-15.0) 07/23/19 04:18 Microbiology: Microbiology 07/21/19 12:30 Blood Culture (Wb) - Anticubital Left Blood Culture - Preliminary 07/21/19 13:45 Blood Culture (Wb) - Anticubital Right Blood Culture - Preliminary 07/21/19 13:15 Urine, Nephrostomy Urine Culture - Preliminary Gram negative maco 07/22/19 01:09 Stool C. difficile DNA Amplification - Final Weight used for dosin kg Estimated Creatinine Clearance: 90 ML/MIN Goal Trough: 15-20 mcg/mL Pharmacy Plan for Drug Dosing: Vancomycin trough within goal range, continue and recheck in 4 days. Pharmacy Service will continue to monitor and adjust dosing as required. Follow-Up Labs: Trough Vancomycin - 07/27 @ 0946
[2019-07-23 05:57] LABS: Differential Comment SCANNED; Toxic Granulation 2+
[2019-07-23] MEDS: Enoxaparin 40 MG/0.4 ML Syringe SC (06:26)
[2019-07-23 06:59] VITALS: O2SAT 96
[2019-07-23 09:00] VITALS: PULSE 80
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
[2019-07-23 10:00] VITALS: BP 144/58; PULSE 89; RESP 18; TEMP 37; O2SAT 99
[2019-07-23] MEDS: HYDROcodone Bitartrate/Apap 5/325 Tablet PO ×2 (10:04→20:40)
--- NOTE | 2019-07-23 17:44 | NURSING ---
pt assisted to shower this afternoon w/ assist of girlfriend who helps him at home, returned to bed via his w/ch from home, bilateral hip drsgs changed per his girlfriend
[2019-07-23] MEDS: 0.9% NaCl Peripheral Flush Adult/Peds IV ×2 (22:17→23:16)
[2019-07-23 22:36] VITALS: BP 140/63; PULSE 91; RESP 16; TEMP 36.6; O2SAT 96
--- NOTE | 2019-07-24 00:19 | NURSING ---
NEIGHBORHOOD PLANNER changed pt's gown. Pt asked to get something out of his gown. pt stated that he had a pain pill in his gown pocket. timers inspector and charge nurse checked the linen bag in the soiled utility room and found a pill in the gown pocket. charge nurse wasted the pill in the rx destroyer. this nurse went in and discussed with the patient the importance of taking his pills when they are given. pt first stated that he can't take 2 norco pills at a time but then later stated at home he takes two norco pills at a time.
[2019-07-24] MEDS: 0.9% Normal Saline 1,000 ML 125 ML IV ×3 (03:07→19:35)
[2019-07-24 03:08] VITALS: BP 136/64; PULSE 82; RESP 16; TEMP 37.1; O2SAT 98
[2019-07-24 05:19] LABS: Absolute Lymphocyte Count 0.52 X10^3/uL (0.83-4.51); Absolute Neutrophil Count 7.3 X10^3/uL (2.0-7.7); Basophil# 0.02 X10^3/uL; Basophil% 0.2 % (0-1); Eosinophil# 0.04 X10^3/uL; Eosinophils% 0.4 % (0-5); Hematocrit 30.1 % (40-54); Hemoglobin 9.6 g/dL (13.0-16.5); Lymphocyte # 0.52 X10^3/ul (4.0); Lymphocyte % 5.7 % (19-41); Mean Corp Hgb Conc 31.9 g/dL (32-36); Mean Corpuscular Hgb 28.6 pg (27.0-32.0); Mean Corpuscular Volume 89.6 fL (80-94); Mean Platelet Vol. 10.2 fl (6.2-12.0); Monocyte# 1.11 X10^3/uL; Monocyte% 12.1 % (0-10); NRBC Flagged by Analyzer 0 % (0-5); Neutrophil # 7.34 X10^3/uL (2.7-7.7); Neutrophil % 79.9 % (47-70); POSITIVE DIFFERENTIAL YES; Platelet Count 203 K/mm3 (150-450); RBC Distribution Width CV 15.5 % (11.6-14.6); RBC Distribution Width SD 51.2 fl (35.1-43.9); Red Blood Count 3.36 M/mm3 (4.6-6.2); White Blood Count 9.2 K/mm3 (4.4-11.0)
[2019-07-24] MEDS: Vancomycin IV 500 MG/100 ML BAG 100 MG IV (05:25)
[2019-07-24 05:31] LABS: Differential Indicated SCAN CRITERIA MET
[2019-07-24 05:40] LABS: ALB/GLOB Ratio 0.6 RATIO (0.9-2.4); AST(SGOT) 13 U/L (15-37); Alanine Aminotransfer ALT/SGPT 15 U/L (16-61); Albumin, Serum 1.7 g/dL (3.2-5.0); Alkaline Phosphatase 121 U/L (45-117); Anion Gap 6 (5-15); BUN 13 mg/dL (7-18); BUN/Creat Ratio 15.7 RATIO (10-20); Calcium,Total 7.2 mg/dL (8.5-10.1); Chloride 116 mmol/L (98-107); Creatinine, Serum 0.83 mg/dL (0.70-1.30); EST Glomerular Filtration Rate 104 mL/min (>60); Est Glom Filt Rate - Afr Amer 125 mL/min (>60); Estimated Creatinine Clearance 87.47 ml/min; Globulin 2.8 g/dL (2.2-4.2); Glucose 91 mg/dL (74-106); Potassium 3.2 mmol/L (3.5-5.1); Protein, Total 4.5 g/dL (6.4-8.2); Sodium Level 143 mmol/L (136-145)
[2019-07-24 05:43] LABS: Differential Comment SCANNED
[2019-07-24] MEDS: Enoxaparin 40 MG/0.4 ML Syringe SC (06:46)
[2019-07-24] MEDS: HYDROcodone Bitartrate/Apap 5/325 Tablet PO ×4 (06:51→22:58)
[2019-07-24 06:59] VITALS: O2SAT 96
--- NOTE | 2019-07-24 08:46 | NURSING ---
wound photo: right ischium
--- NOTE | 2019-07-24 08:48 | NURSING ---
wound photo: left ischium
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
[2019-07-24 09:38] LABS: M R Staph aureus DNA By PCR Negative (Negative); Probe Check PASS; Specimen Processing Control PASS; Staph aureus DNA By PCR NEGATIVE (Negative)
[2019-07-24] MEDS: Ensure Clear 120 ML Liquid PO (09:59)
[2019-07-24 10:00] VITALS: BP 128/67; PULSE 83; RESP 18; TEMP 37; O2SAT 95
[2019-07-24 14:50] VITALS: BP 134/89; PULSE 78; RESP 18; TEMP 36.5; O2SAT 98
--- NOTE | 2019-07-24 16:24 | CON.PCM_ITS ---
Problem List (1) Bacteremia Status: Acute Reason for Consult: bacteremia Consulted by: Dr. Bernstein History of Present Illness: The patient is a 54 year old M with quadriplegia, chronic hip ulcers, urostomy placement, who presented 07/21 with several days of moderate diffuse abd pain, nausea, not feeling well. Noticed some blood and small stones in urine. Some fever and chills. Wounds had been doing well, follows with Dr. Urban. Admitte d, started on vanc/zosyn, feeling better. Bcx with providencia. Full ROS performed and neg except as noted above. 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) Urinary tract infection (Chronic) Allergies/Adverse Reactions: Allergies cephalexin monohydrate [From Keflex] Allergy (Verified 07/21/19 11:42) Itching ciprofloxacin [From Cipro] Allergy (Verified 07/21/19 11:42) Hives ciprofloxacin HCl [From Cipro] Allergy (Verified 07/21/19 11:42) Hives latex Allergy (Verified 07/21/19 11:42) Hives pt states only if indwelling catheter nitrofurantoin [From Macrobid] Allergy (Verified 07/21/19 11:42) Hives nitrofurantoin macrocrystalline [From Macrobid] Allergy (Verified 07/21/19 11:42) Hives Quinolones Allergy (Verified 07/21/19 11:42) Hives sulfamethoxazole Allergy (Verified 07/21/19 11:42) Hives Home Medications: Ambulatory Orders Medication Instructions Recorded NK 07/21/19 - Social History SMOKING STATUS:: Former smoker Vital Signs Temp Pulse Resp BP Pulse Ox 97.7 F L 78 18 134/89 H 98 07/24/19 14:50 07/24/19 14:50 07/24/19 14:50 07/24/19 14:50 07/24/19 14:50 Oxygen Delivery Method Room Air Weight: 59.4 kg Body Mass Index (BMI) 18.2 Microbiology Past 72 Hours 07/24/19 08:05 Gram Stain - Final Wound - Ischium 07/21/19 12:30 Blood Culture - Preliminary Blood Culture (Wb) - Anticubital Left Providencia rettgeri 07/21/19 13:15 Urine Culture - Final Urine, Nephrostomy Providencia rettgeri Alcaligenes faecalis ssp faeca Citrobacter freundii 07/23/19 19:05 Enteric Bacteriology - Final Stool 07/21/19 13:45 Blood Culture - Preliminary Blood Culture (Wb) - Anticubital Right Gram negative maco 07/22/19 01:09 C. difficile DNA Amplification - Final Stool Laboratory Tests Past 24 Hrs 07/24/19 07/24/19 07/24/19 04:56 04:56 08:05 WBC 9.2 RBC 3.36 L Hgb 9.6 L Hct 30.1 L MCV 89.6 MCH 28.6 MCHC 31.9 L RDW Std Deviation 51.2 H RDW Coeff of Morteza 15.5 H Plt Count 203 MPV 10.2 Immature Gran % (Auto) 1.700 H Neut % (Auto) 79.9 H Lymph % (Auto) 5.7 L [place] % (Auto) 12.1 H Eos % (Auto) 0.4 Baso % (Auto) 0.2 Absolute Neuts (auto) 7.3 Absolute Lymphs (auto) 0.52 L Nucleated RBC % 0 Differential Comment SCANNED Sodium 143 Potassium 3.2 L Chloride 116 H Carbon Dioxide 21.0 Anion Gap 6 BUN 13 Creatinine 0.83 Estim Creat Clear Calc 87.47 Est GFR (MDRD) Af Amer 125 Est GFR (MDRD) Non-Af 104 BUN/Creatinine Ratio 15.7 Glucose 91 Calcium 7.2 L Total Bilirubin 0.30 AST 13 L ALT 15 L Alkaline Phosphatase 121 H Total Protein 4.5 L Albumin 1.7 L Globulin 2.8 Albumin/Globulin Ratio 0.6 L S.aureus Protein A PCR NEGATIVE MRSA (PCR) Negative - Other Studies Radiology: [] reviewed Other Studies: [] Route of nutrition/ use of supplements: [] Nutritional Intake: [] IV Site: [] Payne Catheter: [] - Physical Exam General: Alert, Oriented x3, Cooperative, No apparent distress HEENT: Atraumatic, PERRLA, EOMI Neck: Supple, No Nodes Lungs: Clear to auscultation, Normal air movement Cardiovascular: Regular rate, Regular Rhythm Abdomen: Soft, Non Tender, Non-Distended, - - urostomy Extremities: No edema Skin: No rashes, Ulcer/ Wound - reviewed photos Musculoskeletal: No Tenderness to Palpation of Joints or Extremities Neurological: Cranial nerves II-XII grossly intact - Assessment/Plan Antibiotics: [] Assessment/Plan: [] Active and Suspected Problems (Last Reviewed 05/30/19 @ 14:23 by Estelle Morales) Severe sepsis (Acute) Hematuria (Acute) Kidney calculi (Acute) Providencia bacteremia from urinary source - no fever, wbc normal now. Ucx also with providencia, alcaligenes, and citro (I to zosyn). Staph aureus pcr was neg. Will stop vanc. Change zosyn to meropenem. Limited abx options based on his allergies and susceptibilities. Likely will need picc for one week course of meropenem. Will follow, thank you.
[2019-07-24] MEDS: Ondansetron 4 MG/2 ML Vial IV (17:37)
[2019-07-24 20:45] VITALS: BP 145/68; PULSE 82; RESP 18; TEMP 36.9; O2SAT 96
[2019-07-25 03:20] VITALS: BP 135/67; PULSE 89; RESP 18; TEMP 36.8; O2SAT 94
[2019-07-25] MEDS: 0.9% Normal Saline 1,000 ML 125 ML IV (03:29)
[2019-07-25] MEDS: HYDROcodone Bitartrate/Apap 5/325 Tablet PO ×3 (03:31→14:40)
[2019-07-25] MEDS: Enoxaparin 40 MG/0.4 ML Syringe SC (05:58)
[2019-07-25 06:08] VITALS: BP 164/87; PULSE 91; RESP 20; TEMP 36.4; O2SAT 96
--- NOTE | 2019-07-25 06:14 | EKG12_ITS ---
Test Reason : CHEST PREASURE Blood Pressure : / mmHG Vent. Rate : 087 BPM Atrial Rate : 087 BPM P-R Int : 116 ms QRS Dur : 098 ms QT Int : 372 ms P-R-T Axes : 083 076 065 degrees QTc Int : 447 ms Sinus rhythm with Premature atrial complexes Indeterminate axis Borderline ECG When compared with ECG of 21-JUL-2019 13:05, MANUAL COMPARISON REQUIRED, DATA IS UNCONFIRMED Confirmed by MYKEL BHATIA ([id number]), editorial cartoonist LILO MCQUEEN ([id number]) on 07/28/2019 10:30:57 AM Referred By: Mahsa Gloria Confirmed By:MYKEL BHATIA
--- NOTE | 2019-07-25 06:14 | NURSING ---
Pt c/o chest heaviness. worse on inspiration. vitals as documented. Left anterior lung pinon exp wheezes. bounding HR, irregular. stat EKG ordered and will notify
[2019-07-25 06:16] LABS: Hematocrit 29.7 % (40-54); Hemoglobin 9.4 g/dL (13.0-16.5); Mean Corp Hgb Conc 31.6 g/dL (32-36); Mean Corpuscular Hgb 28.2 pg (27.0-32.0); Mean Corpuscular Volume 89.2 fL (80-94); POSITIVE COUNT YES; POSITIVE MORPHOLOGY YES; Platelet Count 213 K/mm3 (150-450); RBC Distribution Width CV 15.8 % (11.6-14.6); RBC Distribution Width SD 51.4 fl (35.1-43.9); Red Blood Count 3.33 M/mm3 (4.6-6.2); White Blood Count 12.9 K/mm3 (4.4-11.0)
[2019-07-25 06:23] LABS: Differential Indicated MANUAL DIFF
--- NOTE | 2019-07-25 06:42 | NURSING ---
respiratory Arrived to do EKG
[2019-07-25 06:46] LABS: ALB/GLOB Ratio 0.6 RATIO (0.9-2.4); AST(SGOT) 14 U/L (15-37); Alanine Aminotransfer ALT/SGPT 13 U/L (16-61); Albumin, Serum 1.6 g/dL (3.2-5.0); Alkaline Phosphatase 118 U/L (45-117); Anion Gap 6 (5-15); BUN 10 mg/dL (7-18); BUN/Creat Ratio 14.8 RATIO (10-20); Calcium,Total 6.9 mg/dL (8.5-10.1); Chloride 118 mmol/L (98-107); Creatinine, Serum 0.67 mg/dL (0.70-1.30); EST Glomerular Filtration Rate 131 mL/min (>60); Est Glom Filt Rate - Afr Amer 159 mL/min (>60); Estimated Creatinine Clearance 108.36 ml/min; Globulin 2.7 g/dL (2.2-4.2); Glucose 77 mg/dL (74-106); Potassium 2.8 mmol/L (3.5-5.1); Protein, Total 4.3 g/dL (6.4-8.2); Sodium Level 145 mmol/L (136-145)
[2019-07-25 06:54] LABS: Eosinophil 2 % (0-5); Lymphocyte 4 % (19-41); Metamyelocyte 1 % (0-1); Monocyte 9 % (0-10); Myelocyte 1 (0-0); Neutrophil-Segmented 83 % (47-70); Total Cells Counted 100 (MANUAL DIFF)
[2019-07-25 06:55] LABS: Platelet Estimate ADEQUATE (ADEQ); Red Cell Morphology NORM C+C NORMAL (NORM C&C)
[2019-07-25 06:56] LABS: Absolute Lymphocyte Count 0.51 X10^3/uL (0.83-4.51); Absolute Neutrophil Count 10.7 X10^3/uL (2.0-7.7); Lymphocyte # 0.51 X10^3/ul (4.0); Neutrophil # 10.74 X10^3/uL (2.7-7.7)
[2019-07-25 09:03] VITALS: BP 152/76; PULSE 85; RESP 18; TEMP 36.7; O2SAT 97
--- NOTE | 2019-07-25 09:46 | PN.ID_ITS ---
Patient Problems: Active and Suspected Problems (Last Reviewed 05/30/19 @ 14:23 by Estelle Morales) Severe sepsis (Acute) Hematuria (Acute) Kidney calculi (Acute) Bacteremia (Acute) Subjective: Feeling ok, no fever, no abd pain - Physical Exam General: Alert, Cooperative, No apparent distress Lungs: Clear to auscultation, Normal air movement Cardiovascular: Regular rate, Regular Rhythm Abdomen: Soft, Non Tender, Non-Distended, - - urostomy in place Skin: Ulcer/ Wound Vital Signs Temp Pulse Resp BP Pulse Ox 98.0 F 85 18 152/76 H 97 07/25/19 09:03 07/25/19 09:03 07/25/19 09:03 07/25/19 09:03 07/25/19 09:03 Oxygen Delivery Method Room Air Weight: 59.4 kg Body Mass Index (BMI) 18.2 Intake and Output for Last 24 Hours 07/23/19 07/24/19 07/25/19 23:59 23:59 23:59 Intake Total 4783.33 / 4783.33 4337.5 / 4337.5 1597.08 / 1597.08 Output Total 1900 / 1900 1525 / 1525 400 / 400 Balance 2883.33 / 2883.33 2812.5 / 2812.5 1197.08 / 1197.08 Microbiology Past 72 Hours 07/21/19 13:45 Blood Culture - Preliminary Blood Culture (Wb) - Anticubital Right Gram negative maco 07/21/19 12:30 Blood Culture - Final Blood Culture (Wb) - Anticubital Left Providencia rettgeri 07/24/19 08:05 Gram Stain - Final Wound - Ischium 07/21/19 13:15 Urine Culture - Final Urine, Nephrostomy Providencia rettgeri Alcaligenes faecalis ssp faeca Citrobacter freundii 07/23/19 19:05 Enteric Bacteriology - Final Stool Laboratory Tests Past 24 Hrs 07/25/19 07/25/19 05:44 05:44 WBC 12.9 H RBC 3.33 L Hgb 9.4 L Hct 29.7 L MCV 89.2 MCH 28.2 MCHC 31.6 L RDW Std Deviation 51.4 H RDW Coeff of Morteza 15.8 H Plt Count 213 MPV 10.0 Neut % (Auto) Not Reportable Absolute Neuts (auto) 10.7 H Absolute Lymphs (auto) 0.51 L Total Counted 100 Neutrophils % (Manual) 83 H Lymphocytes % (Manual) 4 L Monocytes % (Manual) 9 Eosinophils % (Manual) 2 Metamyelocytes % 1 Myelocytes % 1 H Diff Path Review May foll Platelet Estimate ADEQUATE RBC Morphology NORM C+C Sodium 145 Potassium 2.8 L Chloride 118 H Carbon Dioxide 21.0 Anion Gap 6 BUN 10 Creatinine 0.67 L Estim Creat Clear Calc 108.36 Est GFR (MDRD) Af Amer 159 Est GFR (MDRD) Non-Af 131 BUN/Creatinine Ratio 14.8 Glucose 77 Calcium 6.9 L Total Bilirubin 0.30 AST 14 L ALT 13 L Alkaline Phosphatase 118 H Total Protein 4.3 L Albumin 1.6 L Globulin 2.7 Albumin/Globulin Ratio 0.6 L Medical Necessity - Tobacco Use Smoking Status: Former smoker Tobacco Use: Non-smoker Route of nutrition/ use of supplements: [] Nutritional Intake: [] IV Site: [] Payne Catheter: [] - Assessment/Plan Antibiotics: [] Assessment/Plan: [] Active and Suspected Problems (Last Reviewed 05/30/19 @ 14:23 by Estelle Morales) Severe sepsis (Acute) Hematuria (Acute) Kidney calculi (Acute) Providencia bacteremia from urinary source - no fever, wbc normal now. Ucx also with providencia, alcaligenes, and citro (I to zosyn). Staph aureus pcr was neg. Cont meropenem. Limited abx options based on his allergies and susceptibilities. Will order picc and one week course of meropenem. Will follow, d/w leather case finisher, rx written.
--- NOTE | 2019-07-25 09:55 | CASEMGMT ---
DAVID PORRAS updated that patient will need IV ATBs and HHC at discharge. DAVID CM in to discuss discharge needs with patient. DAVID PORRAS provided list of HHC and Infusion companies to patient. Patient would like [facility] and [facility], who he has had in the past. Patient denied further needs at this time. DAVID PORRAS sent referral to [facility] and they are able to accept him. Start of care planned for today at 2100. Referral sent to [facility] and awaiting call back. DAVID PORRAS will continue to follow this patient and plan for a safe discharge.
--- NOTE | 2019-07-25 10:44 | NURSING ---
pt resting quietly in bed with eyes closed
[2019-07-25 12:00] VITALS: RESP 18
--- NOTE | 2019-07-25 13:29 | NURSING ---
Pt did not want this nurse to change his dressings. states he wants his girlfriend to change his dressings and he states he is going home later today anyway. Let DAVID Thomas know.
--- NOTE | 2019-07-25 13:38 | DCINST_ITS ---
- Discharge Diagnoses Current Active Problems: Current Active and Chronic Problems (Last Reviewed 05/30/19 @ 14:23 by Estelle Morales) Severe sepsis (Acute) History of tobacco use (Chronic) Severe protein-calorie malnutrition (Chronic) Hematuria (Acute) Kidney calculi (Acute) Bacteremia (Acute) You will use the following diet at home:: Regular Your food should be the consistency of: Regular Your liquids should be the consistency of: Regular/Thin Discharge Activity: Return to Normal Activity Call your doctor if you observe: Fever of 101 or Higher, Shortness of breath, Dizziness, Fainting spells, Swelling in the ankles, Chest pain, Increased palpitations (irregular heartbeat) Allergies/Adverse Reactions: Allergies cephalexin monohydrate [From Keflex] Allergy (Verified 07/21/19 11:42) Itching ciprofloxacin [From Cipro] Allergy (Verified 07/21/19 11:42) Hives ciprofloxacin HCl [From Cipro] Allergy (Verified 07/21/19 11:42) Hives latex Allergy (Verified 07/21/19 11:42) Hives pt states only if indwelling catheter nitrofurantoin [From Macrobid] Allergy (Verified 07/21/19 11:42) Hives nitrofurantoin macrocrystalline [From Macrobid] Allergy (Verified 07/21/19 11:42) Hives Quinolones Allergy (Verified 07/21/19 11:42) Hives sulfamethoxazole Allergy (Verified 07/21/19 11:42) Hives Medications to take at Discharge Meropenem [Merrem] 1 gm IV Q8 7 Days #21 vial 07/25/19 The following prescriptions were given: Meropenem [Merrem] 1 gm IV Q8 7 Days #21 vial Prescription Printed Primary Care Physician: Rayo Jose MD [Primary Care Provider] - Please follow up with your Primary Care Physician in: 3-5 days Test Results: Test results from this visit will be discussed in further detail at your follow- up appointment, if applicable.
--- NOTE | 2019-07-25 14:15 | CASEMGMT ---
DAVID PORRAS confirmed that patient is discharging today. PICC line information sent to [facility]. DAVID PORRAS called and confirm setup with I for 2100 start time for today at home. DAVID PORRAS updated [facility] patient discharge and script sent to [facility]. DAVID PORRAS updated patient with confirmed setup of IV ATB and [facility]. Patient voiced no further questions or concerns.
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
[2019-07-25 15:00] VITALS: BP 158/80; PULSE 86; RESP 18; TEMP 36.9; O2SAT 96
[2019-07-25 16:30] VITALS: BP 158/80; PULSE 86; RESP 18; TEMP 36.9; O2SAT 96
[2019-07-26 14:51] LABS: Pathologist Review Reviewed
--- NOTE | 2019-07-26 15:38 | CASEMGMT ---
DAVID PORRAS Discharge Follow-Up Phone Call. Amina: Hira Strata: 3 Discharge Date: 07/25/19 Adm Dx: Infectious Decubitus Ulcer, Severe Sepsis, PETR Call to pt to inquire about how he has been doing since being discharged from the hospital. Pt stated he's doing okay. He states [facility] was out to his home last evening for his IV atb's and that he is awaiting for them to come back again today. He states he is aware of the appt with CHAYO Cruz and that he has called and changed the appt time to 1:30 PM on the same day. He denies having any questions about the discharge instructions. DAVID PORRAS thanked pt for choosing [facility]. Ela REILLY RN, CM
== END 2019-07-25 16:24 | disposition home or self-care (01) | DRG 871 ==
LOC: ED 12:48 → MS3 16:00
PROVIDERS: Student in an Organized Health Care Education/Training Program; Admitting Provider Family Medicine; Emergency Provider Emergency Medicine; Family Provider Internal Medicine; PCP Internal Medicine; Referring Provider Family Medicine; Visit Provider Family Medicine
DX: A41.59 Other Gram-negative sepsis (principal); L89.324 Pressure ulcer of left buttock, stage 4; L89.314 Pressure ulcer of right buttock, stage 4; E43 Unspecified severe protein-calorie malnutrition; Z68.1 Body mass index [BMI] 19.9 or less, adult; N17.9 Acute kidney failure, unspecified; G82.20 Paraplegia, unspecified; N39.0 Urinary tract infection, site not specified; R65.20 Severe sepsis without septic shock; N20.0 Calculus of kidney; R31.0 Gross hematuria; Z87.891 Personal history of nicotine dependence; Z87.11 Personal history of peptic ulcer disease; K21.9 Gastro-esophageal reflux disease without esophagitis; E87.6 Hypokalemia; Z93.6 Other artificial openings of urinary tract status; Z89.512 Acquired absence of left leg below knee; Z86.14 Personal history of Methicillin resistant Staphylococcus aureus infection; T14.90XS Injury, unspecified, sequela; V89.2XXS Person injured in unspecified motor-vehicle accident, traffic, sequela; B96.89 Other specified bacterial agents as the cause of diseases classified elsewhere
CPT/HCPCS: 36415; 36569; 71045; 74176; 76705; 80053; 80202; 81001; 83605; 83735; 84100; 85025; 85610; 85730; 87040; 87070; 87075; 87077; 87086; 87088; 87186; 87205; 87493; 87506; 87640; 93005; 97802; 97803; 99285; J2185; J7030; J7040; A4216; J2405

== ENCOUNTER 2019-08-03 13:03 | Outpatient (RCR) | payer MEDICARE, MEDICAID, SELFPAY ==
[2019-07-21 17:24] VITALS: BMI 18.2
[2019-07-31 13:35] LABS: Hemoglobin 9.2 g/dL (13.0-16.5); Mean Corp Hgb Conc 31.7 g/dL (32-36); Mean Corpuscular Hgb 28.1 pg (27.0-32.0); Mean Corpuscular Volume 88.7 fL (80-94); Mean Platelet Vol. 9.8 fl (6.2-12.0); Platelet Count 368 K/mm3 (150-450); RBC Distribution Width CV 16.1 % (11.6-14.6); RBC Distribution Width SD 51.8 fl (35.1-43.9); Red Blood Count 3.27 M/mm3 (4.6-6.2); White Blood Count 13.2 K/mm3 (4.4-11.0)
[2019-07-31 14:13] LABS: AST(SGOT) 14 U/L (15-37); Alanine Aminotransfer ALT/SGPT 12 U/L (16-61); Alkaline Phosphatase 112 U/L (45-117); Anion Gap 4 (5-15); BUN 10 mg/dL (7-18); BUN/Creat Ratio 21.3 RATIO (10-20); Bilirubin, Direct 0.11 mg/dL (0.00-0.30); Calcium,Total 7.1 mg/dL (8.5-10.1); Chloride 101 mmol/L (98-107); Creatinine, Serum 0.47 mg/dL (0.70-1.30); EST Glomerular Filtration Rate 199 mL/min (>60); Est Glom Filt Rate - Afr Amer 241 mL/min (>60); Globulin 3.1 g/dL (2.2-4.2); Glucose 82 mg/dL (74-106); Potassium 2.7 mmol/L (3.5-5.1); Protein, Total 5.1 g/dL (6.4-8.2); Sodium Level 141 mmol/L (136-145)
[2019-08-03 13:43] LABS: Anion Gap 4 (5-15); BUN 15 mg/dL (7-18); BUN/Creat Ratio 34.3 RATIO (10-20); Calcium,Total 8.4 mg/dL (8.5-10.1); Chloride 108 mmol/L (98-107); Creatinine, Serum 0.44 mg/dL (0.70-1.30); EST Glomerular Filtration Rate 217 mL/min (>60); Est Glom Filt Rate - Afr Amer 262 mL/min (>60); Glucose 83 mg/dL (74-106); Potassium 4.5 mmol/L (3.5-5.1); Sodium Level 142 mmol/L (136-145)
== END 2019-08-10 23:59 ==
LOC: HHLAB 13:03
PROVIDERS: Family Provider Internal Medicine; PCP Internal Medicine; Referring Provider Internal Medicine Infectious Disease; Visit Provider Internal Medicine Infectious Disease
DX: A49.9 Bacterial infection, unspecified (principal)
CPT/HCPCS: 80048; 80076; 85027

== ENCOUNTER 2019-08-28 11:00 | Outpatient (RCR) | payer MEDICARE, MEDICAID, SELFPAY ==
[2019-07-21 17:24] VITALS: BMI 18.2
[2019-08-11 00:36] VITALS: BP 102/63; PULSE 117; RESP 16; TEMP 36.4
[2019-08-14 11:48] VITALS: BP 118/68; PULSE 97; RESP 16; TEMP 36.7; BMI 18.2
--- NOTE | 2019-08-14 13:44 | PN.PCM_ITS ---
(1) left ischial pressure sore, stage IV Status: Chronic Code(s): L89.324 - Pressure ulcer of left buttock, stage 4 Comment: extending to the left femur (2) Right ischial pressure sore, stage 4 Status: Chronic Code(s): L89.314 - Pressure ulcer of right buttock, stage 4 (3) Difficulty transferring location Status: Chronic Code(s): Z74.09 - Other reduced mobility (4) History of left below knee amputation Status: Chronic Code(s): Z89.512 - Acquired absence of left leg below knee (5) Chronic paraplegia Status: Chronic Code(s): G82.20 - Paraplegia, unspecified (6) History of osteomyelitis Status: Chronic Code(s): Z87.39 - Personal history of other diseases of the musculoskeletal system and connective tissue (7) History of MRSA infection Status: Chronic Code(s): Z86.14 - Personal history of Methicillin resistant Staphylococcus aureus infection Type of Wound Date of Service: 08/14/19 Chief Complaint: Bilateral ischial pressure sores, Stage IV. History of Wound: Patient has long standing bilateral ischial pressure sores, Stage IV, with the left side extending to the femoral head and the right side extending to the perineal area and the prostate. Surgery would entail quite extensive excision with amputations at a tertiary center. Patient does not want to pursue any heroic surgeries at this time since it is not a guarantee his pressure issues won't recur. With aggressive amputations, his already tenuous balance would be even more disrupted. Today he denies any fever but states he is not feeling well. His appetite is ok. At the present time, we are providing conservative care on a monthly basis. On 01/16/19, he had a wound culture which showed Morganella morganii sp sibonii, Pseudomonas aeroginosa, E. coli, Streptococcus mitis, Corynebacterium striatum, and Bacteroides fragilis. He saw Infectious Diseases and was treated with Levaquin. Progress of Wound: Stable. - Physical Exam Vital Signs Temp Pulse Resp BP 98.0 F 97 16 118/68 08/14/19 11:48 08/14/19 11:48 08/14/19 11:48 08/14/19 11:48 General: Alert, Oriented x3, Cooperative HEENT: Atraumatic Oral: Moist Mucosa Lungs: Normal air movement Cardiovascular: Regular rate Extremities: No edema Skin: Ulcer/ Wound - Right and left ischial stage IV ulcers Wound Measurements and Assessment WC - Nurse 1 - General Ulcer Measurement Start: 08/14/19 11:46 Freq: Status: Active Protocol: Activity Type Activity Date Activity User E-Sign Co-Sign Detail Recorded Client Recorded Date Recorded By Document 08/14/19 11:48 MW [id number] 08/14/19 11:59 MW 08/14/19 11:48 Wound Center Nurse 1 [Ulcer Assessment] #8 L Ischium -Combined with other wound No -Current Size (cm) - Length 6.4 -Current Size (cm) - Width 5.5 -Current Size (cm) - Depth 0.3 -Total Square Cm 35.20 -Photo Taken No -Epithelialization None Present -Tunneling No -Undermining/Tunneling No -Circular Undermining No -Exudate Amt Large -Exudate Type Yellow/Green -Wound Margin Flat & Intact -Granulation Amt Large (67-100%) -Granulation Quality Pale -Slough/Fibrin Yes -Necrosis Amt Small (1-33%) -Necrotic Tissue Type Adherent Slough -Structure Exposed N/A -Texture (Steffi-wound Skin Appearance) Assessed, Scarring -Moisture (Steffi-wound Skin Appearance Assessed, ) Maceration -Color (Steffi-wound Skin Appearance) No Abnormality, Assessed -Temperature (Steffi-wound Skin No Abnormality Appearance) (Pt Warm) -Tenderness on Palpation (Steffi-wound No Skin Appearance) -Ulcer Cleansing Rinsed/ Irrigated with Saline -Foul Odor after Cleansing No -Anesthetic Used 5% Lidocaine Gel #7 R Ischium -Combined with other wound No -Current Size (cm) - Length 3.5 -Current Size (cm) - Width 4.5 -Current Size (cm) - Depth 0.5 -Total Square Cm 15.75 -Photo Taken No -Epithelialization None Present -Tunneling No -Undermining/Tunneling No -Circular Undermining No -Exudate Amt Large -Exudate Type Yellow/Green -Wound Margin Flat & Intact -Granulation Amt Medium (34-66%) -Granulation Quality Pale -Slough/Fibrin Yes -Necrosis Amt Medium (34-66%) -Necrotic Tissue Type Adherent Slough -Structure Exposed N/A -Texture (Steffi-wound Skin Appearance) Assessed, Scarring -Moisture (Steffi-wound Skin Appearance Assessed, ) Maceration -Color (Steffi-wound Skin Appearance) No Abnormality, Assessed -Temperature (Steffi-wound Skin No Abnormality Appearance) (Pt Warm) -Tenderness on Palpation (Steffi-wound No Skin Appearance) -Ulcer Cleansing Rinsed/ Irrigated with Saline -Foul Odor after Cleansing No -Anesthetic Used 5% Lidocaine Gel [Edema Assessment] -Lower Limb Edema Present No WC - Nurse 2 - General Ulcer CM Notes Start: 08/14/19 11:46 Freq: Status: Active Protocol: Activity Type Activity Date Activity User E-Sign Co-Sign Detail Recorded Client Recorded Date Recorded By Document 08/14/19 12:25 DEBORAH [id number] 08/14/19 12:29 DEBORAH 08/14/19 12:25 Wound Center Nurse 2 [Procedure/Treatment] #8 L Ischium -Time 12:26 -Correct Patient Yes -Correct Side, Site, Position Yes -Correct Procedure Yes -Procedure Performed Yes -Type of Procedure Debridement -Clinical Debridement Muscle -Post Debridement Size (cm) - Length 5.0 -Post Debridement Size (cm) - Width 5.7 -Post Debridement Size (cm) - Depth 0.4 -Total Square Cm 28.50 -Wound/Ulcer Outcome Not Healed -Ulcer Cleansing Rinsed/ Irrigated with Saline -Foul Odor after Cleansing No -Bioengineered Tissue No -Bleeding Controlled with Pressure -Other tunnel 1-2:00-- -1.0cm -Offloading No -Treatment Response Procedure Tolerated Well #7 R Ischium -Time 12:27 -Correct Patient Yes -Correct Side, Site, Position Yes -Correct Procedure Yes -Procedure Performed Yes -Type of Procedure Debridement -Clinical Debridement Muscle -Post Debridement Size (cm) - Length 4.0 -Post Debridement Size (cm) - Width 1.8 -Post Debridement Size (cm) - Depth 0.5 -Total Square Cm 7.20 -Wound/Ulcer Outcome Not Healed -Ulcer Cleansing Rinsed/ Irrigated with Saline -Foul Odor after Cleansing No -Bioengineered Tissue No -Bleeding Controlled with Pressure -Offloading No -Treatment Response Procedure Tolerated Well [See Physician Procedure note for Specifics] Pain Scale: 0-10 Numeric [Pain] -Is Patient Pain Free? Yes Musculoskeletal: Muscle Wasting Neurological: Cranial nerves II-XII grossly intact Psych/Mental Status: Normal Affect, Appropriate Debridement Note Post-Debridement Measurements/Treatment WC - Nurse 2 - General Ulcer CM Notes Start: 08/14/19 11:46 Freq: Status: Active Protocol: Activity Type Activity Date Activity User E-Sign Co-Sign Detail Recorded Client Recorded Date Recorded By Document 08/14/19 12:25 DEBORAH [id number] 08/14/19 12:29 DEBORAH 08/14/19 12:25 Wound Center Nurse 2 #8 L Ischium -Time 12:26 -Correct Patient Yes -Correct Side, Site, Position Yes -Correct Procedure Yes -Procedure Performed Yes -Type of Procedure Debridement -Clinical Debridement Muscle -Post Debridement Size (cm) - Length 5.0 -Post Debridement Size (cm) - Width 5.7 -Post Debridement Size (cm) - Depth 0.4 -Total Square Cm 28.50 -Wound/Ulcer Outcome Not Healed -Ulcer Cleansing Rinsed/ Irrigated with Saline -Foul Odor after Cleansing No -Bioengineered Tissue No -Bleeding Controlled with Pressure -Other tunnel 1-2:00-- -1.0cm -Offloading No -Treatment Response Procedure Tolerated Well #7 R Ischium -Time 12:27 -Correct Patient Yes -Correct Side, Site, Position Yes -Correct Procedure Yes -Procedure Performed Yes -Type of Procedure Debridement -Clinical Debridement Muscle -Post Debridement Size (cm) - Length 4.0 -Post Debridement Size (cm) - Width 1.8 -Post Debridement Size (cm) - Depth 0.5 -Total Square Cm 7.20 -Wound/Ulcer Outcome Not Healed -Ulcer Cleansing Rinsed/ Irrigated with Saline -Foul Odor after Cleansing No -Bioengineered Tissue No -Bleeding Controlled with Pressure -Offloading No -Treatment Response Procedure Tolerated Well Pain Scale: 0-10 Numeric Is Patient Pain Free? Yes Wound debrided: ischial ulcer Laterality: Right Wound Grade/Stage: stage 4 Type of Debridement: Excisional debridement Anesthesia Used: 5% Lidocaine Gel Depth: Down to and including healthy tissue, in the subcutaneous layer, to muscle Percentage of wound debrided: 100 Instrument Used: 7mm curette Tissue Removed: Subcutaneous tissue, slough into the muscle Severity: Fat Layer Exposed Amount of bleeding with debridement: Mild Bleeding Controlled with: Pressure, Compression and gauze Patient tolerated procedure well - Additional Wound Wound debrided: ischial ulcer Laterality: Left Wound Grade/Stage: stage4 Type of Debridement: Excisional debridement Anesthesia Used: 5% Lidocaine Gel Depth: Down to and including healthy tissue, in the subcutaneous layer, to muscle Percentage of wound debrided: 100 Instrument Used: 7mm curette Tissue Removed: subcutaneous tissue, slough into the muscle Severity: Fat Layer Exposed Amount of bleeding with debridement: Mild Bleeding Controlled with: Pressure, Compression and gauze Patient tolerated procedure: Patient tolerated procedure well Assessment/Plan Assessment: 1. Right ischial pressure sore with extension to perineal area, Stage IV. 2. Left ischial pressure sore with extension to the femur, Stage IV. 3. Paraplegia, longstanding. 4. History of MRSA. 5. History of osteomyelitis with multiple prior surgeries. 6. Smoker. Plan: Stop acetic acid dressing changes and start Aquacel silver dressing kumar es daily to both ischial pressure sores. The wound culture from 05/15/19 showed MRSA, Proteus mirabilis, Klebsiella oxytoca, Pseudomonas aerginosa, Bacteroides fragilis, Anaerobic cocci. He was treated with Doxycycline, Augmentin and Acetic acid dressings. Encourage nutritional supplementation with protein to help the healing process. Encouraged the patient to stop smoking as it may have deleterious effects on wound healing. Followup 2 weeks. Code Visit [id number]: [id number] Manisha musc/fascia 20 sq cm/< Add On Codes: 85453 Manisha musc/fascia add-on
[2019-08-28 11:18] VITALS: BMI 18.2
--- NOTE | 2019-08-28 23:15 | PN.PCM_ITS ---
Type of Wound Date of Service: 08/28/19 Chief Complaint: Bilateral ischial pressure sores, Stage IV. History of Wound: Patient has long standing bilateral ischial pressure sores, Stage IV, with the left side extending to the femoral head and the right side extending to the perineal area and the prostate. Surgery would entail quite extensive excision with amputations at a tertiary center. Patient does not want to pursue any heroic surgeries at this time since it is not a guarantee his pressure issues won't recur. With aggressive amputations, his already tenuous balance would be even more disrupted. Today he denies any fever. His appetite is ok. At the present time, we are providing conservative care on a monthly basis. He had a recent wound culture on 05/15/19. It showed MRSA, Proteus mirabilis, Klebsiella oxytoca, Pseudomonas aeroginosa, Bacteroides fragilis, and Anaerobic cocci. He was treated with Doxycycline and Augmentin as well as Acetic Acid dressing changes. The Acetic Acid dressing changes were thern changed to Silver dressing changes. He was recently hospitalized in July for urinary infection. He was discharged on Meropenem. He states his right leg gets in the way when transferring. He is interested in proceeding with a BKA. Progress of Wound: Stable. - Physical Exam Vital Signs Temp Pulse Resp BP 98.0 F 97 16 118/68 08/14/19 11:48 08/14/19 11:48 08/14/19 11:48 08/14/19 11:48 Wound Measurements and Assessment WC - Nurse 1 - General Ulcer Measurement Start: 08/14/19 11:46 Freq: Status: Active Protocol: Activity Type Activity Date Activity User E-Sign Co-Sign Detail Recorded Client Recorded Date Recorded By Document 08/28/19 11:18 MW [id number] 08/28/19 11:30 MW 08/28/19 11:18 Wound Center Nurse 1 [Ulcer Assessment] #8 L Ischium -Combined with other wound No -Current Size (cm) - Length 5.5 -Current Size (cm) - Width 6.4 -Current Size (cm) - Depth 0.2 -Total Square Cm 35.20 -Photo Taken No -Epithelialization None Present -Tunneling No -Undermining/Tunneling No -Circular Undermining No -Exudate Amt Large -Exudate Type Serosanguineous -Wound Margin Thickened & Rolled Under -Granulation Amt Medium (34-66%) -Granulation Quality [place] -Slough/Fibrin Yes -Necrosis Amt Small (1-33%) -Necrotic Tissue Type Adherent Slough -Texture (Steffi-wound Skin Appearance) Assessed, Scarring -Moisture (Steffi-wound Skin Appearance Assessed, ) Maceration -Color (Steffi-wound Skin Appearance) No Abnormality, Assessed -Temperature (Steffi-wound Skin No Abnormality Appearance) (Pt Warm) -Tenderness on Palpation (Steffi-wound No Skin Appearance) -Ulcer Cleansing Rinsed/ Irrigated with Saline -Foul Odor after Cleansing No -Anesthetic Used 4% Lidocaine Solution #7 R Ischium -Combined with other wound No -Current Size (cm) - Length 3.0 -Current Size (cm) - Width 4.0 -Current Size (cm) - Depth 0.1 -Total Square Cm 12.00 -Photo Taken No -Epithelialization None Present -Tunneling No -Undermining/Tunneling No -Exudate Amt Large -Exudate Type Serosanguineous -Wound Margin Thickened & Rolled Under -Granulation Amt Small (1-33%) -Granulation Quality Pale -Slough/Fibrin Yes -Necrosis Amt Medium (34-66%) -Necrotic Tissue Type Adherent Slough -Texture (Steffi-wound Skin Appearance) Assessed, Scarring -Moisture (Steffi-wound Skin Appearance Assessed, ) Maceration -Color (Steffi-wound Skin Appearance) No Abnormality, Assessed -Temperature (Steffi-wound Skin No Abnormality Appearance) (Pt Warm) -Tenderness on Palpation (Steffi-wound Yes Skin Appearance) -Ulcer Cleansing Rinsed/ Irrigated with Saline -Foul Odor after Cleansing No -Anesthetic Used 4% Lidocaine Solution [Edema Assessment] -Lower Limb Edema Present No WC - Nurse 2 - General Ulcer CM Notes Start: 08/14/19 11:46 Freq: Status: Active Protocol: Activity Type Activity Date Activity User E-Sign Co-Sign Detail Recorded Client Recorded Date Recorded By Document 08/28/19 11:48 DEBORAH [id number] 08/28/19 11:49 DEBORAH 08/28/19 11:48 Wound Center Nurse 2 [Procedure/Treatment] #8 L Ischium -Time 11:48 -Correct Patient Yes -Correct Side, Site, Position Yes -Correct Procedure Yes -Procedure Performed Yes -Type of Procedure Debridement -Clinical Debridement Muscle -Post Debridement Size (cm) - Length 5.6 -Post Debridement Size (cm) - Width 6.4 -Post Debridement Size (cm) - Depth 0.2 -Total Square Cm 35.84 -Wound/Ulcer Outcome Not Healed -Ulcer Cleansing Rinsed/ Irrigated with Saline -Foul Odor after Cleansing No -Bioengineered Tissue No -Bleeding Controlled with Pressure -Offloading No -Treatment Response Procedure Tolerated Well #7 R Ischium -Time 11:48 -Correct Patient Yes -Correct Side, Site, Position Yes -Correct Procedure Yes -Procedure Performed Yes -Type of Procedure Debridement -Clinical Debridement Muscle -Post Debridement Size (cm) - Length 3.0 -Post Debridement Size (cm) - Width 4.1 -Post Debridement Size (cm) - Depth 0.2 -Total Square Cm 12.30 -Wound/Ulcer Outcome Not Healed -Ulcer Cleansing Rinsed/ Irrigated with Saline -Foul Odor after Cleansing No -Bioengineered Tissue No -Bleeding Controlled with Pressure -Offloading No -Treatment Response Procedure Tolerated Well [See Physician Procedure note for Specifics] Pain Scale: 0-10 Numeric [Pain] -Is Patient Pain Free? Yes Debridement Note Post-Debridement Measurements/Treatment WC - Nurse 2 - General Ulcer CM Notes Start: 08/14/19 11:46 Freq: Status: Active Protocol: Activity Type Activity Date Activity User E-Sign Co-Sign Detail Recorded Client Recorded Date Recorded By Document 08/14/19 12:25 [id number] 08/14/19 12:29 Document 08/28/19 11:48 [id number] 08/28/19 11:49 08/14/19 08/28/19 12:25 11:48 Wound Center Nurse 2 #8 L Ischium -Time 12:26 11:48 -Correct Patient Yes Yes -Correct Side, Site, Position Yes Yes -Correct Procedure Yes Yes -Procedure Performed Yes Yes -Type of Procedure Debridement Debridement -Clinical Debridement Muscle Muscle -Post Debridement Size (cm) - Length 5.0 5.6 -Post Debridement Size (cm) - Width 5.7 6.4 -Post Debridement Size (cm) - Depth 0.4 0.2 -Total Square Cm 28.50 35.84 -Wound/Ulcer Outcome Not Healed Not Healed -Ulcer Cleansing Rinsed/ Rinsed/ Irrigated with Irrigated with Saline Saline -Foul Odor after Cleansing No No -Bioengineered Tissue No No -Bleeding Controlled with Pressure Pressure -Other tunnel 1-2:00-- -1.0cm -Offloading No No -Treatment Response Procedure Procedure Tolerated Well Tolerated Well #7 R Ischium -Time 12:27 11:48 -Correct Patient Yes Yes -Correct Side, Site, Position Yes Yes -Correct Procedure Yes Yes -Procedure Performed Yes Yes -Type of Procedure Debridement Debridement -Clinical Debridement Muscle Muscle -Post Debridement Size (cm) - Length 4.0 3.0 -Post Debridement Size (cm) - Width 1.8 4.1 -Post Debridement Size (cm) - Depth 0.5 0.2 -Total Square Cm 7.20 12.30 -Wound/Ulcer Outcome Not Healed Not Healed -Ulcer Cleansing Rinsed/ Rinsed/ Irrigated with Irrigated with Saline Saline -Foul Odor after Cleansing No No -Bioengineered Tissue No No -Bleeding Controlled with Pressure Pressure -Offloading No No -Treatment Response Procedure Procedure Tolerated Well Tolerated Well Pain Scale: 0-10 Numeric Is Patient Pain Free? Yes Yes Wound debrided: #7 Right ischial area. Laterality: Right Wound Grade/Stage: IV. Type of Debridement: Excisional debridement Anesthesia Used: 4% Lidocaine Solution Depth: Down to and including healthy tissue, in the subcutaneous layer, to muscle, to bone - bone is palpable but not debrided. Percentage of wound debrided: 100 Instrument Used: 7mm curette Tissue Removed: subcutaneous tissue and muscle. Severity: Fat Layer Exposed - muscle is exposed. bone is palpable but not debrided. Amount of bleeding with debridement: Mild Bleeding Controlled with: Pressure Patient tolerated procedure well - Additional Wound Wound debrided: #8 Left ischial area. Laterality: Left Wound Grade/Stage: IV. Type of Debridement: Excisional debridement Anesthesia Used: 4% Lidocaine Solution Depth: Down to and including healthy tissue, in the subcutaneous layer, to muscle, to bone - bone is palpable but not debrided. Percentage of wound debrided: 100 Instrument Used: 7mm curette Tissue Removed: subcutaneous tissue and muscle. Severity: Fat Layer Exposed - muscle is exposed. bone is palpable but not debrided. Amount of bleeding with debridement: Mild Bleeding Controlled with: Pressure Patient tolerated procedure: Patient tolerated procedure well Assessment/Plan Assessment: 1. Right ischial pressure sore with extension to perineal area, Stage IV. 2. Left ischial pressure sore with extension to the femur, Stage IV. 3. Paraplegia, longstanding. 4. History of MRSA. 5. History of osteomyelitis with multiple prior surgeries. 6. Smoker. Plan: Continue Silver dressing changes daily to both ischial pressure sores. He had a recent wound culture on 05/15/19. It showed MRSA, Proteus mirabilis, Klebsiella oxytoca, Pseudomonas aeroginosa, Bacteroides fragilis, and Anaerobic cocci. He was placed on Doxycycline and Augmentin and Acetic Acid ghazala ssing changes and has finished them. Encourage nutritional supplementation with protein to help the healing process. Encouraged the patient to stop smoking as it may have deleterious effects on wound healing. Patient has expressed interest in a right BKA because he is having difficulty with transfer. He states the leg gets in the way. Will schedule the surgery in October. He had some questions about the surgery that were answered personally. Followup 4 weeks. Code Visit [id number]: 95032 Manisha musc/fascia 20 sq cm/< - ICD-10 - L89.314, L89.324, Z89.512, Z86.14, Z87.39, G82.20 Add On Codes: 80539 Manisha musc/fascia add-on - X 2 units ICD-10 - L89.314, L89.324, Z89.512, Z86.14, Z87.39, G82.20
== END 2019-09-09 23:59 ==
LOC: WC 11:00
PROVIDERS: Family Provider Internal Medicine; PCP Internal Medicine; Referring Provider Surgery; Visit Provider Surgery
DX: L89.224 Pressure ulcer of left hip, stage 4 (principal); L89.214 Pressure ulcer of right hip, stage 4; G82.20 Paraplegia, unspecified; F17.200 Nicotine dependence, unspecified, uncomplicated; Z86.14 Personal history of Methicillin resistant Staphylococcus aureus infection
CPT/HCPCS: 11043; 11046

== ENCOUNTER 2019-09-25 09:31 | Outpatient (RCR) | payer MEDICARE, MEDICAID, SELFPAY ==
[2019-09-10 00:30] VITALS: BP 118/68; PULSE 97; RESP 16; TEMP 36.7
[2019-09-25 11:10] VITALS: BP 118/70; PULSE 116; RESP 20; TEMP 35.5; BMI 18.2
--- NOTE | 2019-09-25 17:55 | PCM.WC.PN ---
Type of Wound Date of Service: 09/25/19 Chief Complaint: Bilateral ischial pressure sores, Stage IV. History of Wound: Patient has long standing bilateral ischial pressure sores, Stage IV, with the left side extending to the femoral head and the right side extending to the perineal area and the prostate. Surgery would entail quite extensive excision with amputations at a tertiary center. Patient does not want to pursue any heroic surgeries at this time since it is not a guarantee his pressure issues won't recur. With aggressive amputations, his already tenuous balance would be even more disrupted. Today he denies any fever. His appetite is ok. At the present time, we are providing conservative care on a monthly basis. He had a recent wound culture on 05/15/19. It showed MRSA, Proteus mirabilis, Klebsiella oxytoca, Pseudomonas aeroginosa, Bacteroides fragilis, and Anaerobic cocci. He was treated with Doxycycline and Augmentin as well as Acetic Acid dressing changes. The Acetic Acid dressing changes were thern changed to Silver dressing changes. He was recently hospitalized in July for urinary infection. He was discharged on Meropenem. He states his right leg gets in the way when transferring. He is interested in proceeding with a BKA. Progress of Wound: Stable. - Physical Exam Vital Signs Temp Pulse Resp BP 96 F L 116 H 20 H 118/70 09/25/19 11:10 09/25/19 11:10 09/25/19 11:10 09/25/19 11:10 Wound Measurements and Assessment WC - Nurse 1 - General Ulcer Measurement Start: 09/25/19 11:10 Freq: Status: Active Protocol: Activity Type Activity Date Activity User E-Sign Co-Sign Detail Recorded Client Recorded Date Recorded By Document 09/25/19 11:10 DL [id number] 09/25/19 11:20 DL 09/25/19 11:10 Wound Center Nurse 1 [Ulcer Assessment] #8 L Ischium -Current Size (cm) - Length 6 -Current Size (cm) - Width 6.3 -Current Size (cm) - Depth 0.3 -Total Square Cm 37.8 -Photo Taken No -Exudate Amt Small -Exudate Type Serosanguineous -Wound Margin Thickened & Rolled Under -Granulation Amt Medium (34-66%) -Granulation Quality [place],Red -Necrosis Amt Medium (34-66%) -Necrotic Tissue Type Adherent Slough -Structure Exposed N/A -Texture (Stefif-wound Skin Appearance) Scarring -Moisture (Steffi-wound Skin Appearance Maceration ) -Color (Steffi-wound Skin Appearance) No Abnormality -Temperature (Steffi-wound Skin No Abnormality Appearance) (Pt Warm) -Tenderness on Palpation (Steffi-wound No Skin Appearance) -Ulcer Cleansing Rinsed/ Irrigated with Saline -Foul Odor after Cleansing No -Anesthetic Used 4% Lidocaine Solution #7 R Ischium -Current Size (cm) - Length 2.5 -Current Size (cm) - Width 2.6 -Current Size (cm) - Depth 0.1 -Total Square Cm 6.50 -Photo Taken No -Tunneling Position (O'clock) 1 -Tunneling Distance (cm) 6.4 -Exudate Amt Medium -Exudate Type Serosanguineous -Wound Margin Thickened & Rolled Under -Granulation Amt Large (67-100%) -Granulation Quality [place] -Necrosis Amt Small (1-33%) -Necrotic Tissue Type Adherent Slough -Structure Exposed N/A -Texture (Steffi-wound Skin Appearance) Scarring -Moisture (Steffi-wound Skin Appearance Maceration ) -Color (Steffi-wound Skin Appearance) Rubor -Temperature (Steffi-wound Skin No Abnormality Appearance) (Pt Warm) -Tenderness on Palpation (Steffi-wound No Skin Appearance) -Ulcer Cleansing Rinsed/ Irrigated with Saline -Foul Odor after Cleansing No -Anesthetic Used 5% Lidocaine Gel WC - Nurse 2 - General Ulcer CM Notes Start: 09/25/19 11:10 Freq: Status: Active Protocol: Activity Type Activity Date Activity User E-Sign Co-Sign Detail Recorded Client Recorded Date Recorded By Document 09/25/19 11:53 [id number] 09/25/19 11:54 09/25/19 11:53 Wound Center Nurse 2 [Procedure/Treatment] #8 L Ischium -Time 11:53 -Correct Patient Yes -Correct Side, Site, Position Yes -Correct Procedure Yes -Procedure Performed Yes -Type of Procedure Debridement -Clinical Debridement Muscle -Post Debridement Size (cm) - Length 6 -Post Debridement Size (cm) - Width 6.5 -Post Debridement Size (cm) - Depth 0.3 -Total Square Cm 39.0 -Wound/Ulcer Outcome Not Healed -Ulcer Cleansing Rinsed/ Irrigated with Saline -Foul Odor after Cleansing No -Bioengineered Tissue No -Bleeding Controlled with Pressure -Offloading No -Treatment Response Procedure Tolerated Well #7 R Ischium -Time 11:53 -Correct Patient Yes -Correct Side, Site, Position Yes -Correct Procedure Yes -Procedure Performed Yes -Type of Procedure Debridement -Clinical Debridement Muscle -Post Debridement Size (cm) - Length 2.5 -Post Debridement Size (cm) - Width 2.7 -Post Debridement Size (cm) - Depth 0.2 -Total Square Cm 6.75 -Wound/Ulcer Outcome Not Healed -Ulcer Cleansing Rinsed/ Irrigated with Saline -Foul Odor after Cleansing No -Bioengineered Tissue No -Bleeding Controlled with Pressure -Offloading No -Treatment Response Procedure Tolerated Well [See Physician Procedure note for Specifics] Pain Scale: 0-10 Numeric [Pain] -Is Patient Pain Free? Yes Debridement Note Post-Debridement Measurements/Treatment WC - Nurse 2 - General Ulcer CM Notes Start: 09/25/19 11:10 Freq: Status: Active Protocol: Activity Type Activity Date Activity User E-Sign Co-Sign Detail Recorded Client Recorded Date Recorded By Document 09/25/19 11:53 [id number] 09/25/19 11:54 09/25/19 11:53 Wound Center Nurse 2 #8 L Ischium -Time 11:53 -Correct Patient Yes -Correct Side, Site, Position Yes -Correct Procedure Yes -Procedure Performed Yes -Type of Procedure Debridement -Clinical Debridement Muscle -Post Debridement Size (cm) - Length 6 -Post Debridement Size (cm) - Width 6.5 -Post Debridement Size (cm) - Depth 0.3 -Total Square Cm 39.0 -Wound/Ulcer Outcome Not Healed -Ulcer Cleansing Rinsed/ Irrigated with Saline -Foul Odor after Cleansing No -Bioengineered Tissue No -Bleeding Controlled with Pressure -Offloading No -Treatment Response Procedure Tolerated Well #7 R Ischium -Time 11:53 -Correct Patient Yes -Correct Side, Site, Position Yes -Correct Procedure Yes -Procedure Performed Yes -Type of Procedure Debridement -Clinical Debridement Muscle -Post Debridement Size (cm) - Length 2.5 -Post Debridement Size (cm) - Width 2.7 -Post Debridement Size (cm) - Depth 0.2 -Total Square Cm 6.75 -Wound/Ulcer Outcome Not Healed -Ulcer Cleansing Rinsed/ Irrigated with Saline -Foul Odor after Cleansing No -Bioengineered Tissue No -Bleeding Controlled with Pressure -Offloading No -Treatment Response Procedure Tolerated Well Pain Scale: 0-10 Numeric Is Patient Pain Free? Yes Wound debrided: #7 Right ischial area. Laterality: Right Wound Grade/Stage: IV. Type of Debridement: Excisional debridement Anesthesia Used: 4% Lidocaine Solution Depth: Down to and including healthy tissue, in the subcutaneous layer, to muscle, to bone - bone is palpable but not debrided. Percentage of wound debrided: 100 Instrument Used: 5mm curette Tissue Removed: subcutaneous tissue and muscle. Severity: Fat Layer Exposed - muscle is exposed. bone is palpable but not debrided. Amount of bleeding with debridement: Mild Bleeding Controlled with: Pressure Patient tolerated procedure well - Additional Wound Wound debrided: #8 Left ischial area. Laterality: Left Wound Grade/Stage: IV. Type of Debridement: Excisional debridement Anesthesia Used: 4% Lidocaine Solution Depth: Down to and including healthy tissue, in the subcutaneous layer, to muscle, to bone - bone is palpable but not debrided. Percentage of wound debrided: 100 Instrument Used: 5mm curette Tissue Removed: subcutaneous tissue and muscle. Severity: Fat Layer Exposed - muscle is exposed. bone is palpable but not debrided. Amount of bleeding with debridement: Mild Bleeding Controlled with: Pressure Patient tolerated procedure: Patient tolerated procedure well Assessment/Plan Assessment: 1. Right ischial pressure sore with extension to perineal area, Stage IV. 2. Left ischial pressure sore with extension to the femur, Stage IV. 3. Paraplegia, longstanding. 4. History of MRSA. 5. History of osteomyelitis with multiple prior surgeries. 6. Smoker. Plan: Continue Silver dressing changes daily to both ischial pressure sores. He had a recent wound culture on 05/15/19. It showed MRSA, Proteus mirabilis, Klebsiella oxytoca, Pseudomonas aeroginosa, Bacteroides fragilis, and Anaerobic cocci. He was placed on Doxycycline and Augmentin and Acetic Acid dressing changes and has finished them. Encourage nutritional supplementation with protein to help the healing process. Encouraged the patient to stop smoking as it may have deleterious effects on wound healing. Patient has expressed interest in a right BKA because he is having difficulty with transfer. He states the leg gets in the way. Will schedule the surgery in October. He had some questions about the surgery that were answered personally. Followup 4 weeks. Code Visit 111xxx-[id number]: 61400 Manisha musc/fascia 20 sq cm/< - ICD-10 - L89.314, L89.324, Z89.512, Z86.14, Z87.39, G82.20 Add On Codes: [id number] Manisha musc/fascia add-on - x 2 units ICD-10 - L89.314, L89.324, Z89.512, Z86.14, Z87.39, G82.20
== END 2019-10-10 23:59 ==
LOC: WC 09:31
PROVIDERS: Family Provider Internal Medicine; PCP Internal Medicine; Referring Provider Surgery; Visit Provider Surgery
DX: L89.224 Pressure ulcer of left hip, stage 4 (principal); L89.214 Pressure ulcer of right hip, stage 4; G82.20 Paraplegia, unspecified; F17.200 Nicotine dependence, unspecified, uncomplicated; Z86.14 Personal history of Methicillin resistant Staphylococcus aureus infection
CPT/HCPCS: 11043; 11046

== ENCOUNTER 2019-10-23 11:00 | Outpatient (RCR) | payer MEDICARE, MEDICAID, SELFPAY ==
[2019-10-11 00:26] VITALS: BP 118/70; PULSE 116; RESP 20; TEMP 35.5
[2019-10-23 11:06] VITALS: BP 111/71; PULSE 120; RESP 20; TEMP 36.5; BMI 18.2
--- NOTE | 2019-10-23 15:22 | PCM.WC.PN ---
(1) left ischial pressure sore, stage IV Status: Chronic Current Visit: Yes Code(s): L89.324 - Pressure ulcer of left buttock, stage 4 Comment: extending to the left femur (2) Right ischial pressure sore, stage 4 Status: Chronic Current Visit: Yes Code(s): L89.314 - Pressure ulcer of right buttock, stage 4 (3) Nausea Status: Acute Current Visit: Yes Code(s): R11.0 - Nausea (4) Chronic paraplegia Status: Chronic Current Visit: Yes Code(s): G82.20 - Paraplegia, unspecified (5) History of osteomyelitis Status: Chronic Current Visit: Yes Code(s): Z87.39 - Personal history of other diseases of the musculoskeletal system and connective tissue (6) History of tobacco use Status: Chronic Current Visit: Yes Code(s): Z87.891 - Personal history of nicotine dependence (7) History of MRSA infection Status: Chronic Current Visit: Yes Code(s): Z86.14 - Personal history of Methicillin resistant Staphylococcus aureus infection Type of Wound Date of Service: 10/23/19 Chief Complaint: Bilateral ischial pressure sores, Stage IV. History of Wound: Patient has long standing bilateral ischial pressure sores, Stage IV, with the left side extending to the femoral head and the right side extending to the perineal area and the prostate. Surgery would entail quite extensive excision with amputations at a tertiary center. Patient does not want to pursue any heroic surgeries at this time since it is not a guarantee his pressure issues won't recur. With aggressive amputations, his already tenuous balance would be even more disrupted. Today he denies any fever but is complaining of chills and some nausea. He also states he is having green drainage from one of his ulcers which he believes is the one on the left. His appetite is ok. At the present time, we are providing conservative care on a monthly basis. He had a recent wound culture on 05/15/19. It showed MRSA, Proteus mirabilis, Klebsiella oxytoca, Pseudomonas aeroginosa, Bacteroides fragilis, and Anaerobic cocci. He was treated with Doxycycline and Augmentin as well as Acetic Acid dressing changes. The Acetic Acid dressing changes were thern changed to Silver dressing changes. We recultured his ulcers today. He was recently hospitalized in July for urinary infection. He was discharged on Meropenem. He states his right leg gets in the way when transferring. He is interested in proceeding with a BKA. Progress of Wound: Stable. - Physical Exam Vital Signs Temp Pulse Resp BP 97.7 F L 120 H 20 H 111/71 10/23/19 11:06 10/23/19 11:06 10/23/19 11:06 10/23/19 11:06 General: Alert, Oriented x3, Cooperative HEENT: Atraumatic Oral: Moist Mucosa Lungs: Normal air movement Cardiovascular: Regular rate Abdomen: Soft Extremities: No edema, Capillary Refill Less than 3 Seconds Skin: Ulcer/ Wound - right and left ischial ulcers Wound Measurements and Assessment WC - Nurse 1 - General Ulcer Measurement Start: 10/23/19 11:06 Freq: Status: Active Protocol: Activity Type Activity Date Activity User E-Sign Co-Sign Detail Recorded Client Recorded Date Recorded By Document 10/23/19 11:06 DL [id number] 10/23/19 11:23 DL 10/23/19 11:06 Wound Center Nurse 1 [Ulcer Assessment] #8 L Ischium -Current Size (cm) - Length 4 -Current Size (cm) - Width 6.2 -Current Size (cm) - Depth 0.1 -Total Square Cm 24.8 -Exudate Amt Small -Exudate Type Serosanguineous -Wound Margin Thickened & Rolled Under -Granulation Amt Medium (34-66%) -Granulation Quality [place],Red -Necrosis Amt Medium (34-66%) -Necrotic Tissue Type Adherent Slough -Structure Exposed N/A -Texture (Steffi-wound Skin Appearance) Scarring -Moisture (Steffi-wound Skin Appearance Maceration ) -Color (Steffi-wound Skin Appearance) Rubor -Temperature (Steffi-wound Skin No Abnormality Appearance) (Pt Warm) -Tenderness on Palpation (Steffi-wound No Skin Appearance) -Ulcer Cleansing Rinsed/ Irrigated with Saline -Foul Odor after Cleansing No -Anesthetic Used 4% Lidocaine Solution #7 R Ischium -Current Size (cm) - Length 2.3 -Current Size (cm) - Width 4 -Current Size (cm) - Depth 0.1 -Total Square Cm 9.2 -Tunneling Position (O'clock) 11 -Tunneling Distance (cm) 5.2 -Exudate Amt Small -Exudate Type Serosanguineous -Wound Margin Distinct, Outline Attached -Granulation Amt Large (67-100%) -Granulation Quality [place],Red -Necrosis Amt Small (1-33%) -Necrotic Tissue Type Adherent Slough -Structure Exposed N/A -Texture (Steffi-wound Skin Appearance) Scarring -Moisture (Steffi-wound Skin Appearance Maceration ) -Color (Steffi-wound Skin Appearance) No Abnormality, Rubor -Temperature (Steffi-wound Skin No Abnormality Appearance) (Pt Warm) -Tenderness on Palpation (Steffi-wound No Skin Appearance) -Ulcer Cleansing Rinsed/ Irrigated with Saline -Foul Odor after Cleansing No -Anesthetic Used 4% Lidocaine Solution WC - Nurse 2 - General Ulcer CM Notes Start: 10/23/19 11:06 Freq: Status: Active Protocol: Activity Type Activity Date Activity User E-Sign Co-Sign Detail Recorded Client Recorded Date Recorded By Document 10/23/19 11:58 [id number] 10/23/19 12:00 10/23/19 11:58 Wound Center Nurse 2 [Procedure/Treatment] #8 L Ischium -Time 11:59 -Correct Patient Yes -Correct Side, Site, Position Yes -Correct Procedure Yes -Procedure Performed Yes -Type of Procedure Debridement -Clinical Debridement Muscle -Post Debridement Size (cm) - Length 7 -Post Debridement Size (cm) - Width 7 -Post Debridement Size (cm) - Depth 0.3 -Total Square Cm 49 -Wound/Ulcer Outcome Not Healed -Ulcer Cleansing Rinsed/ Irrigated with Saline -Foul Odor after Cleansing No -Bioengineered Tissue No -Bleeding Controlled with Pressure -Offloading No -Treatment Response Procedure Tolerated Well #7 R Ischium -Time 11:59 -Correct Patient Yes -Correct Side, Site, Position Yes -Correct Procedure Yes -Procedure Performed Yes -Type of Procedure Debridement -Clinical Debridement Muscle -Post Debridement Size (cm) - Length 4.8 -Post Debridement Size (cm) - Width 1.5 -Post Debridement Size (cm) - Depth 0.5 -Total Square Cm 7.20 -Wound/Ulcer Outcome Not Healed -Ulcer Cleansing Rinsed/ Irrigated with Saline -Foul Odor after Cleansing No -Bioengineered Tissue No -Bleeding Controlled with Pressure -Offloading No -Treatment Response Procedure Tolerated Well [See Physician Procedure note for Specifics] Pain Scale: 0-10 Numeric [Pain] -Is Patient Pain Free? Yes Musculoskeletal: Muscle Wasting Neurological: Neuro grossly intact Psych/Mental Status: Normal Affect, Appropriate Debridement Note Post-Debridement Measurements/Treatment WC - Nurse 2 - General Ulcer CM Notes Start: 10/23/19 11:06 Freq: Status: Active Protocol: Activity Type Activity Date Activity User E-Sign Co-Sign Detail Recorded Client Recorded Date Recorded By Document 10/23/19 11:58 [id number] 10/23/19 12:00 DEBORAH 10/23/19 11:58 Wound Center Nurse 2 #8 L Ischium -Time 11:59 -Correct Patient Yes -Correct Side, Site, Position Yes -Correct Procedure Yes -Procedure Performed Yes -Type of Procedure Debridement -Clinical Debridement Muscle -Post Debridement Size (cm) - Length 7 -Post Debridement Size (cm) - Width 7 -Post Debridement Size (cm) - Depth 0.3 -Total Square Cm 49 -Wound/Ulcer Outcome Not Healed -Ulcer Cleansing Rinsed/ Irrigated with Saline -Foul Odor after Cleansing No -Bioengineered Tissue No -Bleeding Controlled with Pressure -Offloading No -Treatment Response Procedure Tolerated Well #7 R Ischium -Time 11:59 -Correct Patient Yes -Correct Side, Site, Position Yes -Correct Procedure Yes -Procedure Performed Yes -Type of Procedure Debridement -Clinical Debridement Muscle -Post Debridement Size (cm) - Length 4.8 -Post Debridement Size (cm) - Width 1.5 -Post Debridement Size (cm) - Depth 0.5 -Total Square Cm 7.20 -Wound/Ulcer Outcome Not Healed -Ulcer Cleansing Rinsed/ Irrigated with Saline -Foul Odor after Cleansing No -Bioengineered Tissue No -Bleeding Controlled with Pressure -Offloading No -Treatment Response Procedure Tolerated Well Pain Scale: 0-10 Numeric Is Patient Pain Free? Yes Wound debrided: ischial ulcer Laterality: Right Type of Debridement: Excisional debridement Anesthesia Used: 5% Lidocaine Gel Depth: Down to and including healthy tissue, in the subcutaneous layer Percentage of wound debrided: 100 Instrument Used: 5mm curette Tissue Removed: subcutaneous tissue and slough Severity: Fat Layer Exposed Amount of bleeding with debridement: Mild Bleeding Controlled with: Pressure, Compression and gauze Patient tolerated procedure well - Additional Wound Wound debrided: Ischial ulcer Laterality: Left Type of Debridement: Excisional debridement Anesthesia Used: 5% Lidocaine Gel Depth: Down to and including healthy tissue, in the subcutaneous layer, to muscle Percentage of wound debrided: 100 Instrument Used: 7mm curette Tissue Removed: subcutaneous tissue and slough into the muscle Severity: Fat Layer Exposed Amount of bleeding with debridement: Mild Bleeding Controlled with: Pressure Patient tolerated procedure: Patient tolerated procedure well Assessment/Plan Active Problems (Last Reviewed 05/30/19 @ 14:23 by Estelle Morales) History of tobacco use (Chronic) Right ischial pressure sore, stage 4 (Chronic) Chronic paraplegia (Chronic) History of osteomyelitis (Chronic) History of MRSA infection (Chronic) left ischial pressure sore, stage IV (Chronic) extending to the left femur Nausea (Acute) Assessment: 1. Right ischial pressure sore with extension to perineal area, Stage IV. 2. Left ischial pressure sore with extension to the femur, Stage IV. 3. Paraplegia, longstanding. 4. History of MRSA. 5. History of osteomyelitis with multiple prior surgeries. 6. Smoker. Plan: Continue Silver dressing changes daily to both ischial pressure sores. He had a recent wound culture on 05/15/19. It showed MRSA, Proteus mirabilis, Klebsiella oxytoca, Pseudomonas aeroginosa, Bacteroides fragilis, and Anaerobic cocci. He was placed on Doxycycline and Augmentin and Acetic Acid dressing changes and has finished them. Today he is complaining about chills and nausea and green drainage coming from his left ischial ulcer. Will reculture his ulcers. Depending on the results of the cultures, it may necessitate the need for antibiotics, which this includes possible IV antibiotics. The patient is aware and willing to have the necessary treatment if it is needed. Encourage nutritional supplementation with protein to help the healing process. Encouraged the patient to stop smoking as it may have deleterious effects on wound healing. Patient has expressed interest in a right BKA because he is having difficulty with transfer. He states the leg gets in the way. It is scheduled November 07, 2019. Followup 4 weeks. Code Visit [id number]: 28021 Manisha musc/fascia 20 sq cm/<
== END 2019-11-10 23:59 ==
LOC: WC 11:00
PROVIDERS: Family Provider Internal Medicine; PCP Internal Medicine; Referring Provider Surgery; Visit Provider Surgery
DX: L89.224 Pressure ulcer of left hip, stage 4 (principal); L89.214 Pressure ulcer of right hip, stage 4; G82.20 Paraplegia, unspecified; F17.200 Nicotine dependence, unspecified, uncomplicated; Z86.14 Personal history of Methicillin resistant Staphylococcus aureus infection; Z87.39 Personal history of other diseases of the musculoskeletal system and connective tissue
CPT/HCPCS: 11043; 11046; 87070; 87075; 87076; 87077; 87186; 87205

== ENCOUNTER 2019-11-06 13:37 | Inpatient (IN) | payer MEDICARE, MEDICAID, SELFPAY ==
[2019-08-14 11:48] VITALS: BMI 18.2
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
[2019-11-06 13:37] VITALS: PULSE 121; BMI 16.9
[2019-11-06 14:00] VITALS: BP 131/75; PULSE 121; RESP 18; TEMP 36.5; O2SAT 97
[2019-11-06 14:44] LABS: Erythrocyte Sedimentation Rate 27 mm/hr (0-20)
[2019-11-06 14:46] LABS: Hematocrit 39.4 % (40-54); Mean Corp Hgb Conc 30.5 g/dL (32-36); Mean Corpuscular Hgb 26.8 pg (27.0-32.0); Mean Corpuscular Volume 88.1 fL (80-94); Mean Platelet Vol. 9.1 fl (6.2-12.0); Platelet Count 405 K/mm3 (150-450); RBC Distribution Width CV 14.1 % (11.6-14.6); RBC Distribution Width SD 45.2 fl (35.1-43.9); Red Blood Count 4.47 M/mm3 (4.6-6.2); White Blood Count 9.7 K/mm3 (4.4-11.0)
[2019-11-06] MEDS: oxyCODONE 5 MG Tablet 10 MG PO ×2 (15:15→19:39)
[2019-11-06 15:19] LABS: ALB/GLOB Ratio 0.7 RATIO (0.9-2.4); AST(SGOT) 16 U/L (15-37); Alanine Aminotransfer ALT/SGPT 15 U/L (16-61); Albumin, Serum 2.7 g/dL (3.2-5.0); Alkaline Phosphatase 133 U/L (45-117); Anion Gap 3 (5-15); BUN 21 mg/dL (7-18); BUN/Creat Ratio 31.8 RATIO (10-20); Calcium,Total 9.1 mg/dL (8.5-10.1); Chloride 108 mmol/L (98-107); Creatinine, Serum 0.66 mg/dL (0.70-1.30); EST Glomerular Filtration Rate 134 mL/min (>60); Est Glom Filt Rate - Afr Amer 163 mL/min (>60); Estimated Creatinine Clearance 102.06 ml/min; Globulin 4.1 g/dL (2.2-4.2); Glucose 97 mg/dL (74-106); Prealbumin 14.4 mg/dL (20.0-40.0); Protein, Total 6.8 g/dL (6.4-8.2); Sodium Level 142 mmol/L (136-145)
--- NOTE | 2019-11-06 15:29 | NURSING ---
Pt admitted for right below the knee amputation. pt has chronic pressure injuries to bilateral ischium. in to assess the wounds at this time. pt states that his had just changed the dressings right before the patient came into the hospital. pt does not want this nurse to assess wounds at this time. states the nurse already looked at them. claims associate in also to place PICC line. will see patient in am. DAVID Mack aware.
[2019-11-06] MEDS: metroNIDAZOLE 500 MG Tablet PO (16:57)
[2019-11-06] MEDS: Vancomycin IV 1,000 MG/200 ML BAG 200 MG IV (17:03)
[2019-11-06 19:50] VITALS: BP 133/60; PULSE 71; RESP 16; TEMP 37.1; O2SAT 98
[2019-11-06] MEDS: Lactated Ringers 1,000 ML 60 ML IV (20:31)
[2019-11-06] MEDS: 0.9% Saline Lock 10 ML Syringe IV ×2 (20:31→20:33)
[2019-11-06] MEDS: Docusate Sodium 100 MG Capsule PO (23:13)
[2019-11-07] VITALS (24 sets, daily range): BP systolic 89–151; BP diastolic 30–80; PULSE 51–107; RESP 12–22; TEMP 36.6–36.9; O2SAT 90–100
[2019-11-07] MEDS: oxyCODONE 5 MG Tablet 10 MG PO (03:26)
[2019-11-07] MEDS: 0.9% Saline Lock 10 ML Syringe IV ×6 (03:29→14:23)
[2019-11-07] MEDS: Vancomycin IV 1,000 MG/200 ML BAG 200 MG IV ×2 (05:05→18:37)
[2019-11-07] MEDS: Ondansetron 4 MG/2 ML Vial IV ×2 (05:15→14:22)
[2019-11-07 05:21] LABS: Absolute Lymphocyte Count 0.63 X10^3/uL (0.83-4.51); Absolute Neutrophil Count 6.7 X10^3/uL (2.0-7.7); Basophil# 0.04 X10^3/uL; Basophil% 0.5 % (0-1); Eosinophil# 0.04 X10^3/uL; Eosinophils% 0.5 % (0-5); Hematocrit 34.6 % (40-54); Hemoglobin 10.6 g/dL (13.0-16.5); Lymphocyte # 0.63 X10^3/ul (4.0); Lymphocyte % 7.9 % (19-41); Mean Corp Hgb Conc 30.6 g/dL (32-36); Mean Corpuscular Hgb 26.8 pg (27.0-32.0); Mean Corpuscular Volume 87.4 fL (80-94); Mean Platelet Vol. 9.2 fl (6.2-12.0); Monocyte# 0.55 X10^3/uL; Monocyte% 6.9 % (0-10); NRBC Flagged by Analyzer 0 % (0-5); Neutrophil # 6.69 X10^3/uL (2.7-7.7); Neutrophil % 83.9 % (47-70); Platelet Count 354 K/mm3 (150-450); RBC Distribution Width CV 14.1 % (11.6-14.6); RBC Distribution Width SD 45.3 fl (35.1-43.9); Red Blood Count 3.96 M/mm3 (4.6-6.2)
--- NOTE | 2019-11-07 05:50 | EKG12_ITS ---
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 Rate : 078 BPM Atrial Rate : 078 BPM P-R Int : 128 ms QRS Dur : 102 ms QT Int : 432 ms P-R-T Axes : 090 103 094 degrees QTc Int : 492 ms Suspect arm lead reversal, interpretation assumes no reversal Sinus rhythm with Premature supraventricular complexes Prolonged QT Incomplete right bundle branch block Abnormal ECG When compared with ECG of 25-JUL-2019 06:50, No significant change was found Confirmed by MYKEL BHATIA ([id number]), brands editor CURTIS ZAVALA ([id number]) on 11/09/2019 10:37:48 AM Referred By: Osvaldo Urban Confirmed By:MYKEL BHATIA
--- NOTE | 2019-11-07 05:51 | CT_ITS ---
STUDY: CT BRAIN WITHOUT CONTRAST REASON FOR EXAM: Male, 54 years old. SEIZURE? RADIATION DOSAGE (If Supplied By Facility): CTDIvol = ( 44.99 ) mGy, DLP = ( 779.24 ) mGycm TECHNIQUE: Transaxial CT imaging of the brain was performed without administration of intravenous contrast material. Individualized dose optimization techniques were used for this CT. COMPARISON: CT scan brain 09/16/2015. FINDINGS: Normal soft tissue structures. Normal calvarium. Normal size ventricles and extra-axial spaces for the patient''s age. Normal white matter tracts of the cerebral hemispheres. Normal basal ganglia and thalami. Normal brainstem. Normal cerebellum. There is no intracranial hemorrhage. There are no findings of an acute ischemic infarction. Normal visualized paranasal sinuses. CT/Brain/Head without Contrast IMPRESSION: Normal unenhanced CT scan of the brain. Electronically Signed: Erick Hare MD at 6:30 EST , Service support ,
[2019-11-07 05:55] LABS: Bedside Glucose 156 mg/dL (70-110)
[2019-11-07 06:34] LABS: Anion Gap 3 (5-15); BUN 23 mg/dL (7-18); Calcium,Total 8.5 mg/dL (8.5-10.1); Chloride 108 mmol/L (98-107); Creatinine, Serum 0.55 mg/dL (0.70-1.30); EST Glomerular Filtration Rate 167 mL/min (>60); Est Glom Filt Rate - Afr Amer 202 mL/min (>60); Estimated Creatinine Clearance 122.47 ml/min; Glucose 119 mg/dL (74-106); Potassium 4.2 mmol/L (3.5-5.1); Sodium Level 140 mmol/L (136-145)
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
--- NOTE | 2019-11-07 06:42 | NURSING ---
Pt transferred to ICU for seizure activity. Surgery team aware, father notified and voicemail left for Dr. Urban.
--- NOTE | 2019-11-07 06:59 | PCM.PN.HOSP ---
Reason for Visit: [employer] note Called to the floor for rapid response team due to patient being unresponsive. Last known well was 5:50 AM when he was seen by the nurse. Patient aide came in to do a sponge bath and found the patient to be unresponsive and shaking and thought to be having a seizure. Prior to this the patient had expressed not feeling well and had been given a dose of Zofran for nausea. Upon recognizing symptoms of seizure patient was given Ativan by the nurse. And they called the rapid response team upon my arrival patient's pulse was 45 blood pressure was 160/60 pulse ox was in the high 90s with oxygen applied pupils were constricted and slow to respond bilaterally and patient was unresponsive otherwise initial labs were drawn including CBC CMP and troponin. And patient was transferred after EKG to radiology for CT scan of the brain which was negative for hemorrhage. Patient started to become more alert and responsive in the CT room and he was then transferred to the ICU for further management. Care was transferred to the ICU attending Dr. Beach at this point patient was able to nod and respond to verbal questioning he denied previous history of seizure disorder and he denied having pain. The patient was set to have BKA surgery this morning however due to the change in his mental status that surgery will need to be postponed. Vitals/I&O's: Vital Signs Temp Pulse Resp BP Pulse Ox 98.4 F 80 18 120/41 L 98 11/07/19 00:38 11/07/19 00:38 11/07/19 00:38 11/07/19 00:38 11/07/19 00:38 Oxygen Delivery Method Room Air Weight: 121 lb 8 oz Body Mass Index (BMI) 16.9 Intake and Output for Last 24 Hours 11/05/19 11/06/19 11/07/19 23:59 23:59 23:59 Intake Total 680.25 / 1480.25 1174 / 1174 Output Total 200 / 475 275 / 275 Balance 480.25 / 1005.25 899 / 899 Laboratory Results 11/06/19 14:30: WBC 9.7, RBC 4.47 L, Hgb 12.0 L, Hct 39.4 L, MCV 88.1, MCH 26.8 L, MCHC 30.5 L, RDW Std Deviation 45.2 H, RDW Coeff of Morteaz 14.1, Plt Count 405, MPV 9.1, ESR 27 H 11/06/19 14:30: Sodium 142, Potassium 4.0, Chloride 108 H, Carbon Dioxide 31.0, Anion Gap 3 L, BUN 21 H, Creatinine 0.66 L, Estim Creat Clear Calc 102.06, Est GFR (MDRD) Af Amer 163, Est GFR (MDRD) Non-Af 134, BUN/Creatinine Ratio 31.8 H, Glucose 97, Calcium 9.1, Total Bilirubin 0.20, AST 16, ALT 15 L, Alkaline Phosphatase 133 H, C-React Prot Ext Range 21.30 H, Total Protein 6.8, Albumin 2.7 L, Globulin 4.1, Albumin/Globulin Ratio 0.7 L, Prealbumin 14.4 L 11/07/19 05:15: WBC 8.0, RBC 3.96 L, Hgb 10.6 L, Hct 34.6 L, MCV 87.4, MCH 26.8 L, MCHC 30.6 L, RDW Std Deviation 45.3 H, RDW Coeff of Morteza 14.1, Plt Count 354, MPV 9.2, Immature Gran % (Auto) 0.300, Neut % (Auto) 83.9 H, Lymph % (Auto) 7.9 L, [place] % (Auto) 6.9, Eos % (Auto) 0.5, Baso % (Auto) 0.5, Absolute Neuts (auto) 6.7, Absolute Lymphs (auto) 0.63 L, Nucleated RBC % 0 11/07/19 05:15: Sodium 140, Potassium 4.2, Chloride 108 H, Carbon Dioxide 29.0, Anion Gap 3 L, BUN 23 H, Creatinine 0.55 L, Estim Creat Clear Calc 122.47, Est GFR (MDRD) Af Amer 202, Est GFR (MDRD) Non-Af 167, BUN/Creatinine Ratio 42.0 H, Glucose 119 H, Calcium 8.5, Troponin I < 0.015 11/07/19 05:49: POC Glucose 156 H Current Medications Diazepam (Valium) 5 mg PO 4X/DAY PRN PRN PRN Reason: SPASMS Docusate Sodium (Colace) 100 mg PO BID [facility] [place] Last Admin: 11/06/19 23:13 Dose: 100 mg Documented by: Enoxaparin Sodium (Lovenox) 40 mg SC DAILY@0600 [facility] [place] Hydromorphone HCl (Dilaudid Inj) 0.5 mg IV Q4H PRN PRN PRN Reason: Pain Score 6-10/10 Sodium Chloride () 250 mls @ 15 mls/hr IV .[id number] PRN PRN Reason: Saline Flush Last Infusion: 11/07/19 02:52 Dose: 15 mls/hr Documented by: Sodium Chloride () 250 mls @ 15 mls/hr IV .[id number] PRN PRN Reason: Additional IVPB Infusion Lactated Ringer's () 1,000 mls @ 60 mls/hr IV .[id number] [facility] [place] Last Admin: 11/06/19 20:31 Dose: 60 mls/hr Documented by: Meropenem 1 gm/ Sodium (Chloride) 120 mls @ 33 mls/hr IV Q8 [facility] [place] Last Infusion: 11/07/19 02:52 Dose: Infused Documented by: Vancomycin IV Pharmacy to Dose (1 ea/ Sodium Chloride) 500 mls @ 250 mls/hr IV X1 PRN; Protocol PRN Reason: Rx to Dose Vancomycin HCl (Vancomycin) 1,000 mg in 200 mls @ 200 mls/hr IV Q12H [facility] [place] Last Infusion: 11/07/19 06:21 Dose: Infused Documented by: Metronidazole (Flagyl) 500 mg PO TIDCM [facility] [place] Last Admin: 11/06/19 16:57 Dose: 500 mg Documented by: Nutritional Formula (Arash - [place] Flavor) [facility] Last Admin: 11/06/19 16:58 Dose: Not Given Documented by: Ondansetron HCl (Zofran) 4 mg IV Q6H PRN PRN PRN Reason: NAUSEA Last Admin: 11/07/19 05:15 Dose: 4 mg Documented by: Oxycodone HCl (Oxyir) 10 mg PO Q4H PRN PRN PRN Reason: Pain Score 6-10/10 Last Admin: 11/07/19 03:26 Dose: 10 mg Documented by: Potassium Chloride (K-Dur) 40 meq PO BIDCM [facility] [place] Last Admin: 11/06/19 16:58 Dose: Not Given Documented by: Promethazine HCl (Phenergan Tablet) 25 mg PO Q4H PRN PRN PRN Reason: NAUSEA/VOMITING Sodium Chloride () 10 - 40 ml IV UD PRN PRN Reason: SALINE FLUSH Last Admin: 11/07/19 05:15 Dose: 10 ml Documented by: Sodium Hypochlorite (Dakins Solution 0.25% (1/2 Strength)) 1 applic TOPICAL DAILY [facility]; Protocol Medical Necessity - Tobacco Use Smoking Status: Former smoker Tobacco Use: - Assessment/Plan All Active Problems (Last Reviewed 05/30/19 @ 14:23 by Estelle Morales) MRSA (methicillin resistant Staphylococcus aureus) infection (Acute) Severe sepsis (Acute) Hematuria (Acute) Kidney calculi (Acute) Bacteremia (Acute) Pseudomonas aeruginosa infection (Acute) Nausea (Acute) Colitis (Resolved)
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
[2019-11-07 09:08] LABS: Amphetamine Urine VISTA NEGATIVE (<1000 ng/mL); Barbiturate Urine VISTA NEGATIVE (< 200 ng/mL); Benzodiazepine Urine VISTA NEGATIVE (< 200 ng/mL); Cocaine Urine VISTA NEGATIVE (< 300 ng/mL); Ecstacy Urine VISTA NEGATIVE (< 500 ng/mL); Methadone Urine VISTA NEGATIVE (< 300 ng/mL); PCP Urine VISTA NEGATIVE (< 25 ng/mL); THC Urine VISTA POSITIVE (< 50 ng/mL); Vista UDS pH Range 6
[2019-11-07 09:15] LABS: Magnesium 1.6 mg/dL (1.6-2.6); Thyroid Stim Hormone (TSH) 1.66 uIU/mL (0.358-3.74)
[2019-11-07 09:28] LABS: Ammonia < 10.0 umol/L (11-32)
[2019-11-07] MEDS: levETIRAcetam IV 1,000 MG/100 ML BAG 400 MG IV (11:21)
[2019-11-07] MEDS: Pantoprazole Sodium 20 MG Tablet PO ×2 (11:22→22:12)
[2019-11-07] MEDS: Lactated Ringers 1,000 ML 60 ML IV (11:25)
--- NOTE | 2019-11-07 13:59 | NURSING ---
wound photo: right ischium
--- NOTE | 2019-11-07 14:00 | NURSING ---
wound photo: left ischium
[2019-11-07] MEDS: DAKIN'S SOL HALF STRENGTH (=0.25%) 1 APPLIC TOPICAL (16:47)
--- NOTE | 2019-11-07 21:14 | PCM.PN.BLA ---
Progress Note Patient was scheduled for a right BKA today. Preop he had a seizure. The surgery was cancelled. He was transferred to the ICU. Further seizure workup is in progress. He was started on Meropenem, Vancomycin, and Flagyl in preparation for his surgery today. The antibiotics resulted from positive wound cultures on 10/23/19. It has been noted that Meropenem has an increased risk of seizures. His antibiotics were then changed to Vancomycin and Zosyn as the Meropenem and Flagyl were stopped. He was started on Keppra. After discharge, he will need to be evaluated by Neurology before further elective surgery under anesthesia can be performed. STROKE Vital Signs/Narrative: Vital Signs Pulse Resp BP Pulse Ox 11/07/19 21:00 68 19 H 107/46 L 98 11/07/19 20:00 63 16 103/40 L 100 11/07/19 19:00 69 16 116/54 L 97
[2019-11-07] MEDS: Docusate Sodium 100 MG Capsule PO (22:12)
[2019-11-07] MEDS: Acetaminophen 325 MG Tablet 650 MG PO (22:48)
[2019-11-08] VITALS (12 sets, daily range): BP systolic 91–118; BP diastolic 43–50; PULSE 63–83; RESP 16–23; TEMP 36.4–36.7; O2SAT 95–100
[2019-11-08] MEDS: Lactated Ringers 1,000 ML 60 ML IV (04:20)
[2019-11-08 04:29] LABS: Absolute Lymphocyte Count 0.25 X10^3/uL (0.83-4.51); Absolute Neutrophil Count 5.2 X10^3/uL (2.0-7.7); Basophil# 0.02 X10^3/uL; Basophil% 0.3 % (0-1); Eosinophil# 0.12 X10^3/uL; Hemoglobin 9.7 g/dL (13.0-16.5); Lymphocyte # 0.25 X10^3/ul (4.0); Lymphocyte % 4.2 % (19-41); Mean Corp Hgb Conc 30.3 g/dL (32-36); Mean Corpuscular Hgb 26.7 pg (27.0-32.0); Mean Corpuscular Volume 88.2 fL (80-94); Mean Platelet Vol. 8.8 fl (6.2-12.0); Monocyte# 0.37 X10^3/uL; Monocyte% 6.2 % (0-10); NRBC Flagged by Analyzer 0 % (0-5); Neutrophil % 86.8 % (47-70); POSITIVE DIFFERENTIAL YES; Platelet Count 263 K/mm3 (150-450); RBC Distribution Width CV 14.4 % (11.6-14.6); Red Blood Count 3.63 M/mm3 (4.6-6.2)
[2019-11-08 04:33] LABS: Differential Indicated SCAN CRITERIA MET
[2019-11-08 04:46] LABS: ALB/GLOB Ratio 0.7 RATIO (0.9-2.4); AST(SGOT) 12 U/L (15-37); Alanine Aminotransfer ALT/SGPT 11 U/L (16-61); Albumin, Serum 2.2 g/dL (3.2-5.0); Alkaline Phosphatase 103 U/L (45-117); Anion Gap 3 (5-15); BUN 18 mg/dL (7-18); BUN/Creat Ratio 35.6 RATIO (10-20); Calcium,Total 8.2 mg/dL (8.5-10.1); Chloride 109 mmol/L (98-107); Creatinine, Serum 0.51 mg/dL (0.70-1.30); EST Glomerular Filtration Rate 183 mL/min (>60); Est Glom Filt Rate - Afr Amer 221 mL/min (>60); Estimated Creatinine Clearance 132.07 ml/min; Globulin 3.3 g/dL (2.2-4.2); Glucose 86 mg/dL (74-106); Potassium 3.3 mmol/L (3.5-5.1); Protein, Total 5.5 g/dL (6.4-8.2); Sodium Level 142 mmol/L (136-145)
[2019-11-08 04:57] LABS: Vancomycin, Trough Level 19.1 ug/mL (5.0-15.0)
--- NOTE | 2019-11-08 05:07 | NURSING ---
[facility] 19.1 this am. spoke to Kevin, pharmacist prior to hanging the 0500 dose and he stated to hold the dose due this am.
[2019-11-08 05:14] LABS: Differential Comment SCANNED
[2019-11-08] MEDS: Enoxaparin 40 MG/0.4 ML Syringe SC (06:20)
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
[2019-11-08] MEDS: Pantoprazole Sodium 20 MG Tablet PO (08:33)
[2019-11-08] MEDS: Acetaminophen 325 MG Tablet 650 MG PO (08:41)
--- NOTE | 2019-11-08 09:30 | CT_ITS ---
STUDY: CT ABDOMEN AND PELVIS WITH CONTRAST REASON FOR EXAM: Male, 54 years old. PAIN W/ N/V, BILAT ISCHIAL PRESSURE SORES, OSTEOMYELITIS. RADIATION DOSAGE (If Supplied By Facility): CTDIvol = ( 12.31 ) mGy, DLP = ( 530.64 ) mGycm TECHNIQUE: Transaxial images were obtained from the dome of the diaphragm to the symphysis pubis without oral contrast. Oral and amp; IV Gastrografin and amp; 100mL Isovue-300 was administered. Sagittal and coronal images were reconstructed. Individualized dose optimization techniques were used for this CT. COMPARISON: Comparison is made with prior study dated July 21, 2019. FINDINGS: Minimal degree of increased markings at the left lung base suggestive of atelectasis and/or scarring. The visualized portions of the heart are within normal limits. Normal liver. Small gallstones. Normal spleen. Normal pancreas. Normal bilateral adrenal glands. Normal right kidney. Normal left kidney. Normal visualized stomach. Normal small intestine. Normal colon. The appendix is visualized and appears normal. There is scattered atherosclerotic calcification of the abdominal aorta, without a demonstrated aneurysm. Normal inferior vena cava. Normal retroperitoneum. The patient once again has an ileal loop with urinary diversion in the anterior abdominal wall. Once again, there is evidence of a large tissue gap at the level of the anal opening with the diffuse surrounding soft tissue thickening. This may represent a large decubitus ulceration. This is essentially unchanged. Marked degree of levoconvex scoliosis. CT/Abdomen/Pelvis WITH Contrast IMPRESSION: Stable examination. There has been no change. Electronically Signed: Jay Leigh, at 12:49 EST , Service support ,
--- NOTE | 2019-11-08 09:44 | CASEMGMT ---
RN CM Assessment Note Presentation: Ischial nonhealing pressure sore, paraplegia Intro role of CM and purpose of RN CM assessment to patient in room. Pt is alert, oriented and able to participate in assessment. Demographics, PCP and Pharmacy verified. Pt states he has all equipment @ home he needs. Girlfriend is able to assist with dressing changes and has been doing them previously. Pt follows up with wound center. Next appt is Nov @ 11 am. (placed on dc appointment list. -call to [facility] wound nurse to verify dressing changes with Dakin's solution now. DAVID Osborne updated that pt will need script for this. PCP: Dr. Jose Specialists: Dr. Urban; [facility] wound center Preferred Pharmacy: [facility] Insurance: [facility] Prescription Benefit: yes LNOK: Father, thaddeus Heath; Girlfriend Maranda Perry Living Arrangements/DME: Lives with father. Has hospital bed, wheelchair, slide board Transportation: family/friend drives HHC: [facility] past. Discussed if pt would like HHC on dc for dressing change reinforcement. Pt states he does not wish to have HHC. Girlfriend assists w/dressing changes and is proficient. Patient DC goals: Home DC PLAN: Home. Will need script for Dakin's and any dressing change supplies. Angel REILLY RN ACM
--- NOTE | 2019-11-08 11:18 | NURSING ---
Pt does not want this nurse to change dressings to bilateral ischium since he is going home. pt states the dressings sometimes come off with transfer so pt states his girlfriend will have to change them when they get home anyway. wounds stable so this nurse did not push dressing changes. has CT scan scheduled at noon and then will be discharged home. pt aware to call for questions or concerns.
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
== END 2019-11-08 13:02 | disposition home or self-care (01) | DRG 593 ==
LOC: ICU 11-07 09:44 → MS3 11-07 09:44
PROVIDERS: Anesthesiology; Family Medicine; Internal Medicine Critical Care Medicine; Admitting Provider Surgery; Family Provider Internal Medicine; PCP Internal Medicine; Referring Provider Surgery; Visit Provider Surgery
DX: L89.894 Pressure ulcer of other site, stage 4 (principal); M86.659 Other chronic osteomyelitis, unspecified thigh; G82.20 Paraplegia, unspecified; G40.409 Other generalized epilepsy and epileptic syndromes, not intractable, without status epilepticus; L89.314 Pressure ulcer of right buttock, stage 4; L89.324 Pressure ulcer of left buttock, stage 4; B96.4 Proteus (mirabilis) (morganii) as the cause of diseases classified elsewhere; Z89.511 Acquired absence of right leg below knee; B96.20 Unspecified Escherichia coli [E. coli] as the cause of diseases classified elsewhere; B95.62 Methicillin resistant Staphylococcus aureus infection as the cause of diseases classified elsewhere; B96.5 Pseudomonas (aeruginosa) (mallei) (pseudomallei) as the cause of diseases classified elsewhere; K25.9 Gastric ulcer, unspecified as acute or chronic, without hemorrhage or perforation; K21.9 Gastro-esophageal reflux disease without esophagitis; Z87.440 Personal history of urinary (tract) infections; M41.9 Scoliosis, unspecified; Z86.718 Personal history of other venous thrombosis and embolism; Z87.81 Personal history of (healed) traumatic fracture; Z87.19 Personal history of other diseases of the digestive system; F17.201 Nicotine dependence, unspecified, in remission
CPT/HCPCS: 36415; 36569; 70450; 74177; 80048; 80053; 80202; 80307; 82140; 82962; 83735; 84134; 84443; 84484; 85025; 85027; 85652; 86140; 93005; 95819; J2185; J7050; J7120; Q9967; A4216; J2405

== ENCOUNTER 2019-11-27 11:00 | Outpatient (RCR) | payer MEDICARE, MEDICAID, SELFPAY ==
[2019-11-06 13:37] VITALS: BMI 16.9
[2019-11-11 00:31] VITALS: BP 111/71; PULSE 120; RESP 20; TEMP 36.5
[2019-11-27 11:04] VITALS: BP 106/75; PULSE 128; RESP 16; TEMP 36.8; BMI 16.9
--- NOTE | 2019-11-27 18:18 | PCM.WC.PN ---
Type of Wound Date of Service: 11/27/19 Chief Complaint: Bilateral ischial pressure sores, Stage IV. History of Wound: Patient has long standing bilateral ischial pressure sores, Stage IV, with the left side extending to the femoral head and the right side extending to the perineal area and the prostate. Surgery would entail quite extensive excision with amputations at a tertiary center. Patient does not want to pursue any heroic surgeries at this time since it is not a guarantee his pressure issues won't recur. With aggressive amputations, his already tenuous balance would be even more disrupted. Today he denies any fever. His appetite is ok. At the present time, we are providing conservative care on a monthly basis. He had a recent wound culture on 05/15/19. It showed MRSA, Proteus mirabilis, Klebsiella oxytoca, Pseudomonas aeroginosa, Bacteroides fragilis, and Anaerobic cocci. He was treated with Doxycycline and Augmentin as well as Acetic Acid dressing changes. The Acetic Acid dressing changes were thern changed to Silver dressing changes. He was recently hospitalized in July for urinary infection. He was discharged on Meropenem. He states his right leg gets in the way when transferring. He is interested in proceeding with a BKA. Preop cultures were done on 10/23/19. The left ischial ulcer showed Morganella morganii, Proteus mirabilis, E. coli, MRSA, Streptococcus Group F, Corynebacterium minutissimum, and Bacteroides fragilis. The right ischial ulcer showed Providencia rettgeri, Proteus mirabilis, MRSA, Kocuria kristinae, Corynebacterium minutissimum, and Bacteroides fragilis. He was started on Augmentin and Doxycycline. The surgery was scheduled for 11/07/19. It was cancelled due to a seizure. He was started on IV Meropenem and it was thought the medication was responsible. He was started on Keppra. The workup was negative. Surgery was cancelled for now until he is seen by Neurology. He has an appointment later this week with the Neurologist. Progress of Wound: Stable. - Physical Exam Vital Signs Temp Pulse Resp BP 98.2 F 128 H 16 106/75 11/27/19 11:04 11/27/19 11:04 11/27/19 11:04 11/27/19 11:04 Wound Measurements and Assessment WC - Nurse 1 - General Ulcer Measurement Start: 11/27/19 11:03 Freq: Status: Active Protocol: Activity Type Activity Date Activity User E-Sign Co-Sign Detail Recorded Client Recorded Date Recorded By Document 11/27/19 11:04 [facility] [id number] 11/27/19 11:12 [facility] 11/27/19 11:04 Wound Center Nurse 1 [Ulcer Assessment] #8 L Ischium -Combined with other wound No -Current Size (cm) - Length 6.0 -Current Size (cm) - Width 6.2 -Current Size (cm) - Depth 0.1 -Total Square Cm 37.20 -Photo Taken No -Epithelialization None Present -Tunneling No -Undermining/Tunneling Yes -Undermining/Tunneling Starts (O' 7 clock) -Undermining/Tunneling Ends (O'clock) 11 -Maximum Distance (cm) 1.2 -Circular Undermining No -Exudate Amt Small -Exudate Type Serosanguineous -Wound Margin Thickened & Rolled Under -Granulation Amt Large (67-100%) -Granulation Quality [place] -Slough/Fibrin Yes -Necrosis Amt None Present (0 %) -Necrotic Tissue Type Adherent Slough -Structure Exposed N/A -Texture (Steffi-wound Skin Appearance) Assessed, Scarring -Moisture (Steffi-wound Skin Appearance Assessed, ) Maceration -Color (Steffi-wound Skin Appearance) No Abnormality, Assessed -Temperature (Steffi-wound Skin No Abnormality Appearance) (Pt Warm) -Tenderness on Palpation (Steffi-wound No Skin Appearance) -Ulcer Cleansing Rinsed/ Irrigated with Saline -Foul Odor after Cleansing No #7 R Ischium -Combined with other wound No -Current Size (cm) - Length 2.3 -Current Size (cm) - Width 1.7 -Current Size (cm) - Depth 0.1 -Total Square Cm 3.91 -Date of Last Picture (Recall this 11/27/19 field) -Photo Taken Yes -Epithelialization None Present -Tunneling No -Undermining/Tunneling No -Circular Undermining No -Exudate Amt Small -Exudate Type Serosanguineous -Wound Margin Thickened & Rolled Under -Granulation Amt Large (67-100%) -Granulation Quality [place] -Slough/Fibrin Yes -Necrosis Amt Small (1-33%) -Necrotic Tissue Type Adherent Slough -Structure Exposed N/A -Texture (Steffi-wound Skin Appearance) Assessed, Scarring -Moisture (Steffi-wound Skin Appearance Assessed, ) Maceration -Color (Steffi-wound Skin Appearance) No Abnormality, Assessed -Temperature (Steffi-wound Skin No Abnormality Appearance) (Pt Warm) -Tenderness on Palpation (Steffi-wound No Skin Appearance) -Ulcer Cleansing Rinsed/ Irrigated with Saline -Foul Odor after Cleansing No [Edema Assessment] -Lower Limb Edema Present No WC - Nurse 2 - General Ulcer CM Notes Start: 11/27/19 11:03 Freq: Status: Active Protocol: Activity Type Activity Date Activity User E-Sign Co-Sign Detail Recorded Client Recorded Date Recorded By Document 11/27/19 11:40 DEBORAH [id number] 11/27/19 11:43 DEBORAH 11/27/19 11:40 Wound Center Nurse 2 [Procedure/Treatment] #8 L Ischium -Time 11:40 -Correct Patient Yes -Correct Side, Site, Position Yes -Correct Procedure Yes -Procedure Performed Yes -Type of Procedure Debridement -Clinical Debridement Muscle -Post Debridement Size (cm) - Length 6.1 -Post Debridement Size (cm) - Width 6.2 -Post Debridement Size (cm) - Depth 0.3 -Total Square Cm 37.82 -Wound/Ulcer Outcome Not Healed -Ulcer Cleansing Rinsed/ Irrigated with Saline -Foul Odor after Cleansing No -Bioengineered Tissue No -Bleeding Controlled with Pressure -Offloading No -Treatment Response Procedure Tolerated Well #7 R Ischium -Time 11:41 -Correct Patient Yes -Correct Side, Site, Position Yes -Correct Procedure Yes -Procedure Performed Yes -Type of Procedure Debridement -Clinical Debridement Muscle -Post Debridement Size (cm) - Length 2.4 -Post Debridement Size (cm) - Width 1.8 -Post Debridement Size (cm) - Depth 0.3 -Total Square Cm 4.32 -Wound/Ulcer Outcome Not Healed -Ulcer Cleansing Rinsed/ Irrigated with Saline -Foul Odor after Cleansing No -Bioengineered Tissue No -Bleeding Controlled with Pressure -Offloading No -Treatment Response Procedure Tolerated Well [See Physician Procedure note for Specifics] Debridement Note Post-Debridement Measurements/Treatment WC - Nurse 2 - General Ulcer CM Notes Start: 11/27/19 11:03 Freq: Status: Active Protocol: Activity Type Activity Date Activity User E-Sign Co-Sign Detail Recorded Client Recorded Date Recorded By Document 11/27/19 11:40 DEBORAH [id number] 11/27/19 11:43 DEBORAH 11/27/19 11:40 Wound Center Nurse 2 #8 L Ischium -Time 11:40 -Correct Patient Yes -Correct Side, Site, Position Yes -Correct Procedure Yes -Procedure Performed Yes -Type of Procedure Debridement -Clinical Debridement Muscle -Post Debridement Size (cm) - Length 6.1 -Post Debridement Size (cm) - Width 6.2 -Post Debridement Size (cm) - Depth 0.3 -Total Square Cm 37.82 -Wound/Ulcer Outcome Not Healed -Ulcer Cleansing Rinsed/ Irrigated with Saline -Foul Odor after Cleansing No -Bioengineered Tissue No -Bleeding Controlled with Pressure -Offloading No -Treatment Response Procedure Tolerated Well #7 R Ischium -Time 11:41 -Correct Patient Yes -Correct Side, Site, Position Yes -Correct Procedure Yes -Procedure Performed Yes -Type of Procedure Debridement -Clinical Debridement Muscle -Post Debridement Size (cm) - Length 2.4 -Post Debridement Size (cm) - Width 1.8 -Post Debridement Size (cm) - Depth 0.3 -Total Square Cm 4.32 -Wound/Ulcer Outcome Not Healed -Ulcer Cleansing Rinsed/ Irrigated with Saline -Foul Odor after Cleansing No -Bioengineered Tissue No -Bleeding Controlled with Pressure -Offloading No -Treatment Response Procedure Tolerated Well Wound debrided: #7 Right ischial area. Laterality: Right Wound Grade/Stage: IV. Type of Debridement: Excisional debridement Anesthesia Used: 4% Lidocaine Solution Depth: Down to and including healthy tissue, in the subcutaneous layer, to muscle, to bone - bone is palpable but not debrided. Percentage of wound debrided: 100 Instrument Used: 7mm curette Tissue Removed: subcutaneous tissue and muscle. Severity: Fat Layer Exposed - muscle is exposed. bone is palpable but not debrided. Amount of bleeding with debridement: Mild Bleeding Controlled with: Pressure Patient tolerated procedure well - Additional Wound Wound debrided: #8 Left ischial area. Laterality: Left Wound Grade/Stage: IV. Type of Debridement: Excisional debridement Anesthesia Used: 4% Lidocaine Solution Depth: Down to and including healthy tissue, in the subcutaneous layer, to muscle, to bone - bone is palpable but not debrided. Percentage of wound debrided: 100 Instrument Used: 7mm curette Tissue Removed: subcutaneous tissue and muscle. Severity: Fat Layer Exposed - muscle is exposed. bone is palpable but not debrided. Amount of bleeding with debridement: Mild Bleeding Controlled with: Pressure Patient tolerated procedure: Patient tolerated procedure well Assessment/Plan Assessment: 1. Right ischial pressure sore with extension to perineal area, Stage IV. 2. Left ischial pressure sore with extension to the femur, Stage IV. 3. Paraplegia, longstanding. 4. History of MRSA. 5. History of osteomyelitis with multiple prior surgeries. 6. Smoker. 7. Recent seizure, stable, possible medication related. Plan: Continue Silver dressing changes daily to both ischial pressure sores. He had a recent wound culture on 05/15/19. It showed MRSA, Proteus mirabilis, Klebsiella oxytoca, Pseudomonas aeroginosa, Bacteroides fragilis, and Anaerobic cocci. He was placed on Doxycycline and Augmentin and Acetic Acid dressing changes and has finished them. He was interested in proceeding with a BKA because he is having difficulty with transfer. He states the leg gets in the way. It was scheduled November 07, 2019. Preop cultures were done on 10/23/19. The left ischial ulcer showed Morganella morganii, Proteus mirabilis, E. coli, MRSA, Streptococcus Group F, Corynebacterium minutissimum, and Bacteroides fragilis. The right ischial ulcer showed Providencia rettgeri, Proteus mirabilis, MRSA, Kocuria kristinae, Corynebacterium minutissimum, and Bacteroides fragilis. He was started on Augmentin and Doxycycline. The surgery which was scheduled for 11/07/19 was cancelled due to a seizure. He was started on IV Meropenem and it was thought the medication was responsible. He was started on Keppra. The workup was negative. Surgery was cancelled for now until he is seen by Neurology. He has an appointment later this week with the Neurologist. Encourage nutritional supplementation with protein to help the healing process. Encouraged the patient to stop smoking as it may have deleterious effects on wound healing. Followup 4 weeks. Code Visit [id number]: 45891 Manisha musc/fascia 20 sq cm/< - ICD-10 - L89.314, L89.324, Z89.512, Z86.14, Z87.39, G82.20 Add On Codes: 55042 Manisha musc/fascia add-on - X 2 units ICD-10 - L89.314, L89.324, Z89.512, Z86.14, Z87.39, G82.20
== END 2019-12-09 23:59 ==
LOC: WC 11:00
PROVIDERS: Family Provider Internal Medicine; PCP Internal Medicine; Referring Provider Surgery; Visit Provider Surgery
DX: L89.224 Pressure ulcer of left hip, stage 4 (principal); L89.214 Pressure ulcer of right hip, stage 4; G82.20 Paraplegia, unspecified; F17.200 Nicotine dependence, unspecified, uncomplicated; Z86.14 Personal history of Methicillin resistant Staphylococcus aureus infection; R56.9 Unspecified convulsions
CPT/HCPCS: 11043; 11046

== ENCOUNTER → 2019-12-08 13:55 | Outpatient (CLI) | payer MEDICARE, MEDICAID, SELFPAY ==
[2019-11-30 16:58] VITALS: BMI 16.9
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
[2019-12-08 15:41] LABS: Vitamin B12 382 pg/mL (211-911)
[2019-12-08 15:50] LABS: Ferritin 23 ng/mL (26-388); Iron 51 ug/dL (65-175)
== END ==
PROVIDERS: PCP Internal Medicine; Referring Provider Psychiatry & Neurology Neurology; Visit Provider Psychiatry & Neurology Neurology
DX: R07.9 Chest pain, unspecified (principal); R63.4 Abnormal weight loss; D64.9 Anemia, unspecified; E43 Unspecified severe protein-calorie malnutrition
CPT/HCPCS: 36415; 71250; 82607; 82652; 82728; 82746; 83540

== ENCOUNTER 2019-12-25 08:21 | Outpatient (RCR) | payer MEDICARE, MEDICAID, SELFPAY ==
[2019-11-30 16:58] VITALS: BMI 16.9
[2019-12-10 00:26] VITALS: BP 106/75; PULSE 128; RESP 16; TEMP 36.8
[2019-12-25 11:19] VITALS: BP 157/72; PULSE 83; RESP 16; TEMP 36.7; BMI 16.9
--- NOTE | 2019-12-25 14:23 | PCM.WC.PN ---
(1) left ischial pressure sore, stage IV Status: Chronic Current Visit: Yes Code(s): L89.324 - Pressure ulcer of left buttock, stage 4 Comment: extending to the left femur (2) Right ischial pressure sore, stage 4 Status: Chronic Current Visit: Yes Code(s): L89.314 - Pressure ulcer of right buttock, stage 4 (3) Chronic osteomyelitis, pelvis Status: Chronic Current Visit: Yes Qualifiers: Laterality: unspecified laterality Qualified Code(s): M86.659 - Other chronic osteomyelitis, unspecified thigh Code(s): M86.659 - Other chronic osteomyelitis, unspecified thigh (4) Severe protein-calorie malnutrition Status: Chronic Current Visit: Yes Code(s): E43 - Unspecified severe protein-calorie malnutrition (5) History of MRSA infection Status: Chronic Current Visit: Yes Code(s): Z86.14 - Personal history of Methicillin resistant Staphylococcus aureus infection Type of Wound Date of Service: 12/25/19 Chief Complaint: Bilateral ischial pressure sores, Stage IV. History of Wound: Patient has long standing bilateral ischial pressure sores, Stage IV, with the left side extending to the femoral head and the right side extending to the perineal area and the prostate. Surgery would entail quite extensive excision with amputations at a tertiary center. Patient does not want to pursue any heroic surgeries at this time since it is not a guarantee his pressure issues won't recur. With aggressive amputations, his already tenuous balance would be even more disrupted. Today he denies any fever. His appetite is ok. At the present time, we are providing conservative care on a monthly basis. He had a wound culture on 05/15/19 which showed MRSA, Proteus mirabilis, Klebsiella oxytoca, Pseudomonas aeroginosa, Bacteroides fragilis, and Anaerobic cocci. He was treated with Doxycycline and Augmentin as well as Acetic Acid dressing changes. The Acetic Acid dressing changes were thern changed to Silver dressing changes. He was recently hospitalized in July for urinary infection. He was discharged on Meropenem. He states his right leg gets in the way when transferring. He is interested in proceeding with a BKA. Preop cultures were done on 10/23/19. The left ischial ulcer showed Morganella morganii, Proteus mirabilis, E. coli, MRSA, Streptococcus Group F, Corynebacterium minutissimum, and Bacteroides fragilis. The right ischial ulcer showed Providencia rettgeri, Proteus mirabilis, MRSA, Kocuria kristinae, Corynebacterium minutissimum, and Bacteroides fragilis. He was started on Augmentin and Doxycycline. The surgery was scheduled for 11/07/19. It was cancelled due to a seizure. He was started on IV Meropenem and it was thought the medication was responsible. He was started on Keppra. The workup was negative. Surgery was cancelled for now until he is seen by Neurology. He saw the Neurologist and has another follow up next week. The patient states the Neurologist has been ordering several tests. Progress of Wound: Stable. - Physical Exam Vital Signs Temp Pulse Resp BP 98.0 F 83 16 157/72 H 12/25/19 11:19 12/25/19 11:19 12/25/19 11:19 12/25/19 11:19 General: Alert, Oriented x3, Cooperative HEENT: Atraumatic Oral: Moist Mucosa Cardiovascular: Regular rate Extremities: Capillary Refill Less than 3 Seconds Skin: Ulcer/ Wound - Right and left ischial stage IV ulcers that are stable. Wound Measurements and Assessment WC - Nurse 1 - General Ulcer Measurement Start: 12/25/19 11:19 Freq: Status: Active Protocol: Activity Type Activity Date Activity User E-Sign Co-Sign Detail Recorded Client Recorded Date Recorded By Document 12/25/19 11:19 MW [id number] 12/25/19 11:33 MW 12/25/19 11:19 Wound Center Nurse 1 [Ulcer Assessment] #8 L Ischium -Combined with other wound No -Current Size (cm) - Length 6.0 -Current Size (cm) - Width 5.7 -Current Size (cm) - Depth 0.1 -Total Square Cm 34.20 -Photo Taken No -Epithelialization None Present -Tunneling No -Undermining/Tunneling No -Circular Undermining No -Exudate Amt Large -Exudate Type Serous -Wound Margin Thickened & Rolled Under -Granulation Amt Large (67-100%) -Granulation Quality [place] -Slough/Fibrin Yes -Necrosis Amt Small (1-33%) -Necrotic Tissue Type Adherent Slough -Structure Exposed N/A -Texture (Steffi-wound Skin Appearance) Assessed, Scarring -Moisture (Steffi-wound Skin Appearance Assessed,Dry/ ) Scaly -Color (Steffi-wound Skin Appearance) Assessed -Temperature (Steffi-wound Skin No Abnormality Appearance) (Pt Warm) -Tenderness on Palpation (Steffi-wound No Skin Appearance) -Ulcer Cleansing Rinsed/ Irrigated with Saline -Foul Odor after Cleansing No -Anesthetic Used 4% Lidocaine Solution #7 R Ischium -Combined with other wound No -Current Size (cm) - Length 1.5 -Current Size (cm) - Width 2.5 -Current Size (cm) - Depth 0.1 -Total Square Cm 3.75 -Photo Taken No -Epithelialization None Present -Tunneling No -Undermining/Tunneling No -Circular Undermining No -Exudate Amt Large -Exudate Type Serous -Wound Margin Thickened & Rolled Under -Granulation Amt Large (67-100%) -Granulation Quality [place] -Slough/Fibrin Yes -Necrosis Amt Small (1-33%) -Necrotic Tissue Type Adherent Slough -Structure Exposed N/A -Texture (Steffi-wound Skin Appearance) Assessed, Scarring -Moisture (Steffi-wound Skin Appearance Assessed,Dry/ ) Scaly -Color (Steffi-wound Skin Appearance) No Abnormality, Assessed -Temperature (Steffi-wound Skin No Abnormality Appearance) (Pt Warm) -Tenderness on Palpation (Steffi-wound Yes Skin Appearance) -Ulcer Cleansing Rinsed/ Irrigated with Saline -Foul Odor after Cleansing No -Anesthetic Used 4% Lidocaine Solution [Edema Assessment] -Lower Limb Edema Present No WC - Nurse 2 - General Ulcer CM Notes Start: 12/25/19 11:19 Freq: Status: Active Protocol: Activity Type Activity Date Activity User E-Sign Co-Sign Detail Recorded Client Recorded Date Recorded By Document 12/25/19 11:38 DEBORAH [id number] 12/25/19 11:43 DEBORAH 12/25/19 11:38 Wound Center Nurse 2 [Procedure/Treatment] #8 L Ischium -Time 11:39 -Correct Patient Yes -Correct Side, Site, Position Yes -Correct Procedure Yes -Procedure Performed Yes -Type of Procedure Debridement -Clinical Debridement Muscle -Post Debridement Size (cm) - Length 6.8 -Post Debridement Size (cm) - Width 5.5 -Post Debridement Size (cm) - Depth 0.8 -Total Square Cm 37.40 -Wound/Ulcer Outcome Not Healed -Ulcer Cleansing Rinsed/ Irrigated with Saline -Foul Odor after Cleansing No -Bioengineered Tissue No -Bleeding Controlled with Pressure -Offloading No -Treatment Response Procedure Tolerated Well #7 R Ischium -Time 11:39 -Correct Patient Yes -Correct Side, Site, Position Yes -Correct Procedure Yes -Procedure Performed Yes -Type of Procedure Debridement -Clinical Debridement Muscle -Post Debridement Size (cm) - Length 2.7 -Post Debridement Size (cm) - Width 1.6 -Post Debridement Size (cm) - Depth 0.3 -Total Square Cm 4.32 -Wound/Ulcer Outcome Not Healed -Ulcer Cleansing Rinsed/ Irrigated with Saline -Foul Odor after Cleansing No -Bioengineered Tissue No -Bleeding Controlled with Pressure -Offloading No -Treatment Response Procedure Tolerated Well [See Physician Procedure note for Specifics] Pain Scale: 0-10 Numeric [Pain] -Is Patient Pain Free? Yes Musculoskeletal: Tenderness Neurological: Neuro grossly intact Psych/Mental Status: Normal Affect, Appropriate Debridement Note Post-Debridement Measurements/Treatment WC - Nurse 2 - General Ulcer CM Notes Start: 12/25/19 11:19 Freq: Status: Active Protocol: Activity Type Activity Date Activity User E-Sign Co-Sign Detail Recorded Client Recorded Date Recorded By Document 12/25/19 11:38 DEBORAH [id number] 12/25/19 11:43 DEBORAH 12/25/19 11:38 Wound Center Nurse 2 #8 L Ischium -Time 11:39 -Correct Patient Yes -Correct Side, Site, Position Yes -Correct Procedure Yes -Procedure Performed Yes -Type of Procedure Debridement -Clinical Debridement Muscle -Post Debridement Size (cm) - Length 6.8 -Post Debridement Size (cm) - Width 5.5 -Post Debridement Size (cm) - Depth 0.8 -Total Square Cm 37.40 -Wound/Ulcer Outcome Not Healed -Ulcer Cleansing Rinsed/ Irrigated with Saline -Foul Odor after Cleansing No -Bioengineered Tissue No -Bleeding Controlled with Pressure -Offloading No -Treatment Response Procedure Tolerated Well #7 R Ischium -Time 11:39 -Correct Patient Yes -Correct Side, Site, Position Yes -Correct Procedure Yes -Procedure Performed Yes -Type of Procedure Debridement -Clinical Debridement Muscle -Post Debridement Size (cm) - Length 2.7 -Post Debridement Size (cm) - Width 1.6 -Post Debridement Size (cm) - Depth 0.3 -Total Square Cm 4.32 -Wound/Ulcer Outcome Not Healed -Ulcer Cleansing Rinsed/ Irrigated with Saline -Foul Odor after Cleansing No -Bioengineered Tissue No -Bleeding Controlled with Pressure -Offloading No -Treatment Response Procedure Tolerated Well Pain Scale: 0-10 Numeric Is Patient Pain Free? Yes Wound debrided: ischial ulcer Laterality: Right Type of Debridement: Excisional debridement Anesthesia Used: 4% Lidocaine Solution Depth: Down to and including healthy tissue, in the subcutaneous layer, to muscle Percentage of wound debrided: 100 Instrument Used: 5mm curette Tissue Removed: Subcutaneous tissue and slough into the muscle Severity: Fat Layer Exposed Amount of bleeding with debridement: Mild Bleeding Controlled with: Pressure Patient tolerated procedure well - Additional Wound Wound debrided: ischial ulcer Laterality: Left Type of Debridement: Excisional debridement Anesthesia Used: 4% Lidocaine Solution Depth: Down to and including healthy tissue, in the subcutaneous layer, to muscle Percentage of wound debrided: 100 Instrument Used: 5mm curette Tissue Removed: subcutaneous tissue and slough into the ulcer Severity: Fat Layer Exposed Amount of bleeding with debridement: Mild Bleeding Controlled with: Pressure Patient tolerated procedure: Patient tolerated procedure well Assessment/Plan Active Problems (Last Reviewed 05/30/19 @ 14:23 by Estelle Morales) Chronic osteomyelitis, pelvis (Chronic) Severe protein-calorie malnutrition (Chronic) Right ischial pressure sore, stage 4 (Chronic) History of MRSA infection (Chronic) left ischial pressure sore, stage IV (Chronic) extending to the left femur Assessment: 1. Right ischial pressure sore with extension to perineal area, Stage IV. 2. Left ischial pressure sore with extension to the femur, Stage IV. 3. Paraplegia, longstanding. 4. History of MRSA. 5. History of osteomyelitis with multiple prior surgeries. 6. Smoker. 7. Recent seizure, stable, possible medication related. Plan: Continue Silver dressing changes daily to both ischial pressure sores. He had a wound culture on 05/15/19. It showed MRSA, Proteus mirabilis, Klebsiella oxytoca, Pseudomonas aeroginosa, Bacteroides fragilis, and Anaerobic cocci. He was placed on Doxycycline and Augmentin and Acetic Acid dressing changes and has finished them. He was interested in proceeding with a BKA because he is having difficulty with transfer. He states the leg gets in the way. It was scheduled November 07, 2019. Preop cultures were done on 10/23/19. The left ischial ulcer showed Morganella morganii, Proteus mirabilis, E. coli, MRSA, Streptococcus Group F, Corynebacterium minutissimum, and Bacteroides fragilis. The right ischial ulcer showed Providencia rettgeri, Proteus mirabilis, MRSA, Kocuria kristinae, Corynebacterium minutissimum, and Bacteroides fragilis. He was started on Augmentin and Doxycycline. The surgery which was scheduled for 11/07/19 was cancelled due to a seizure. He was started on IV Meropenem and it was thought the medication was responsible. He was started on Keppra. The workup was negative. Surgery was cancelled for now until he is seen by Neurology. He has another appointment with the Neurologist next week. Encourage nutritional supplementation with protein to help the healing process. Encouraged the patient to stop smoking as it may have deleterious effects on wound healing. Followup 4 weeks. [id number]: [id number] Manisha musc/fascia 20 sq cm/< Add On Codes: [id number] Manisha musc/fascia add-on - x2
== END 2020-01-09 23:59 ==
LOC: WC 08:21
PROVIDERS: Family Provider Internal Medicine; PCP Internal Medicine; Referring Provider Surgery; Visit Provider Surgery
DX: L89.224 Pressure ulcer of left hip, stage 4 (principal); L89.214 Pressure ulcer of right hip, stage 4; G82.20 Paraplegia, unspecified; F17.200 Nicotine dependence, unspecified, uncomplicated; Z86.14 Personal history of Methicillin resistant Staphylococcus aureus infection
CPT/HCPCS: 11043; 11046

== ENCOUNTER → 2019-12-28 10:49 | Outpatient (CLI) | payer MEDICARE, MEDICAID, SELFPAY ==
[2019-11-30 16:58] VITALS: BMI 16.9
[2019-12-25 11:19] VITALS: BMI 16.9
--- NOTE | 2019-12-28 10:50 | US_ITS ---
STUDY: ABDOMINAL ULTRASOUND -left UPPER QUADRANT REASON FOR VISIT: Male, 54 years old splenic lesion TECHNIQUE: Ultrasound evaluation of the left upper quadrant was performed with real-time and static mayfield-scale imaging. TECHNICAL QUALITY: Adequate. COMPARISON: Comparison is made with prior CT scan of the abdomen dated November 08, 2019. FINDINGS: Spleen: The spleen measures 9 cm x 4 cm x 4 cm. Within it, there is a 2.2 cm x 1.7 cm x 1.5 cm cyst. US/Spleen IMPRESSION: 2.2 cm x 1.7 cm x 1.5 cm splenic cyst. Electronically Signed: Jay Leigh, at 13:35 EDT , Service support ,
== END ==
PROVIDERS: PCP Internal Medicine; Referring Provider Psychiatry & Neurology Neurology; Visit Provider Psychiatry & Neurology Neurology
DX: D73.89 Other diseases of spleen (principal)
CPT/HCPCS: 76705

== ENCOUNTER 2020-02-19 09:34 | Outpatient (RCR) | payer MEDICARE, MEDICAID, SELFPAY ==
[2020-02-16 16:50] VITALS: BMI 16.9
[2020-02-19 10:57] VITALS: BP 122/87; PULSE 122; RESP 22; TEMP 36.6; BMI 16.9
--- NOTE | 2020-02-19 13:13 | PCM.WC.PN ---
(1) left ischial pressure sore, stage IV Status: Chronic Current Visit: Yes Code(s): L89.324 - Pressure ulcer of left buttock, stage 4 Comment: extending to the left femur (2) Right ischial pressure sore, stage 4 Status: Chronic Current Visit: Yes Code(s): L89.314 - Pressure ulcer of right buttock, stage 4 (3) Chronic osteomyelitis, pelvis Status: Chronic Current Visit: Yes Qualifiers: Laterality: unspecified laterality Qualified Code(s): M86.659 - Other chronic osteomyelitis, unspecified thigh Code(s): M86.659 - Other chronic osteomyelitis, unspecified thigh (4) Severe protein-calorie malnutrition Status: Chronic Current Visit: Yes Code(s): E43 - Unspecified severe protein-calorie malnutrition (5) History of MRSA infection Status: Chronic Current Visit: Yes Code(s): Z86.14 - Personal history of Methicillin resistant Staphylococcus aureus infection Type of Wound Date of Service: 02/19/20 Chief Complaint: Bilateral ischial pressure sores, Stage IV. History of Wound: Patient has long standing bilateral ischial pressure sores, Stage IV, with the left side extending to the femoral head and the right side extending to the perineal area and the prostate. Surgery would entail quite extensive excision with amputations at a tertiary center. Patient does not want to pursue any heroic surgeries at this time since it is not a guarantee his pressure issues won't recur. With aggressive amputations, his already tenuous balance would be even more disrupted. Today he denies any fever. His appetite is ok. At the present time, we are providing conservative care on a monthly basis. He had a wound culture on 05/15/19 which showed MRSA, Proteus mirabilis, Klebsiella oxytoca, Pseudomonas aeroginosa, Bacteroides fragilis, and Anaerobic cocci. He was treated with Doxycycline and Augmentin as well as Acetic Acid dressing changes. The Acetic Acid dressing changes were thern changed to Silver dressing changes. He was recently hospitalized in July for urinary infection. He was discharged on Meropenem. He states his right leg gets in the way when transferring. He is interested in proceeding with a BKA. Preop cultures were done on 10/23/19. The left ischial ulcer showed Morganella morganii, Proteus mirabilis, E. coli, MRSA, Streptococcus Group F, Corynebacterium minutissimum, and Bacteroides fragilis. The right ischial ulcer showed Providencia rettgeri, Proteus mirabilis, MRSA, Kocuria kristinae, Corynebacterium minutissimum, and Bacteroides fragilis. He was started on Augmentin and Doxycycline. The surgery was scheduled for 11/07/19. It was cancelled due to a seizure. He was started on IV Meropenem and it was thought the medication was responsible. He was started on Keppra. The workup was negative. Surgery was cancelled for now until he is seen by Neurology. The patient states the Neurologist had ordered several tests. But everything looks like it was related to the antibiotics. Today he denies any fever. He states his appetite is ok. Progress of Wound: Stable - Physical Exam Vital Signs Temp Pulse Resp BP 97.8 F 122 H 22 H 122/87 H 02/19/20 10:57 02/19/20 10:57 02/19/20 10:57 02/19/20 10:57 General: Alert, Oriented x3, Cooperative HEENT: Atraumatic Oral: Moist Mucosa Lungs: Normal air movement Cardiovascular: Regular rate, Regular Rhythm Extremities: No edema Skin: Ulcer/ Wound - Right ischial stage IV ulcer and left ischial stage IV ulcer. Wound Measurements and Assessment WC - Nurse 1 - General Ulcer Measurement Start: 02/19/20 10:05 Freq: Status: Active Protocol: Activity Type Activity Date Activity User E-Sign Co-Sign Detail Recorded Client Recorded Date Recorded By Document 02/19/20 10:57 DL [id number] 02/19/20 11:06 DL 02/19/20 10:57 Wound Center Nurse 1 [Ulcer Assessment] #8 L Ischium -Combined with other wound No -Current Size (cm) - Length 1.8 -Current Size (cm) - Width 1.7 -Current Size (cm) - Depth 0.1 -Total Square Cm 3.06 -Photo Taken Yes -Tunneling No -Undermining/Tunneling No -Circular Undermining No -Exudate Amt Small -Exudate Type Serosanguineous -Wound Margin Thickened & Rolled Under -Granulation Amt Medium (34-66%) -Granulation Quality [place] -Slough/Fibrin Yes -Necrosis Amt Medium (34-66%) -Necrotic Tissue Type Adherent Slough -Structure Exposed N/A -Texture (Steffi-wound Skin Appearance) Assessed, Scarring -Moisture (Steffi-wound Skin Appearance Assessed ) -Color (Steffi-wound Skin Appearance) Assessed -Temperature (Steffi-wound Skin No Abnormality Appearance) (Pt Warm) -Tenderness on Palpation (Steffi-wound No Skin Appearance) -Ulcer Cleansing Wound Cleanser -Foul Odor after Cleansing No -Anesthetic Used 4% Lidocaine Solution #7 R Ischium -Combined with other wound No -Current Size (cm) - Length 0.8 -Current Size (cm) - Width 1 -Current Size (cm) - Depth 0.1 -Total Square Cm 0.8 -Photo Taken Yes -Tunneling Yes -Tunneling Position (O'clock) 12 -Tunneling Distance (cm) 5.4 -Undermining/Tunneling No -Circular Undermining No -Exudate Amt Medium -Exudate Type Serosanguineous -Wound Margin Thickened & Rolled Under -Granulation Amt Medium (34-66%) -Granulation Quality [place],Red -Slough/Fibrin Yes -Necrosis Amt Medium (34-66%) -Necrotic Tissue Type Adherent Slough -Structure Exposed N/A -Texture (Steffi-wound Skin Appearance) Assessed, Scarring -Moisture (Steffi-wound Skin Appearance Assessed ) -Color (Steffi-wound Skin Appearance) Assessed -Temperature (Steffi-wound Skin No Abnormality Appearance) (Pt Warm) -Tenderness on Palpation (Steffi-wound No Skin Appearance) -Ulcer Cleansing Wound Cleanser -Foul Odor after Cleansing No -Anesthetic Used 4% Lidocaine Solution WC - Nurse 2 - General Ulcer CM Notes Start: 02/19/20 10:05 Freq: Status: Active Protocol: Activity Type Activity Date Activity User E-Sign Co-Sign Detail Recorded Client Recorded Date Recorded By Document 02/19/20 11:18 DEBORAH [id number] 02/19/20 11:22 DEBORAH 02/19/20 11:18 Wound Center Nurse 2 [Procedure/Treatment] #8 L Ischium -Time 11:20 -Correct Patient Yes -Correct Side, Site, Position Yes -Correct Procedure Yes -Procedure Performed Yes -Type of Procedure Debridement -Clinical Debridement Muscle -Post Debridement Size (cm) - Length 6.5 -Post Debridement Size (cm) - Width 6.0 -Post Debridement Size (cm) - Depth 0.5 -Total Square Cm 39.00 -Wound/Ulcer Outcome Not Healed -Ulcer Cleansing Rinsed/ Irrigated with Saline -Foul Odor after Cleansing No -Bioengineered Tissue No -Bleeding Controlled with Pressure -Offloading No -Treatment Response Procedure Tolerated Well #7 R Ischium -Time 11:20 -Correct Patient Yes -Correct Side, Site, Position Yes -Correct Procedure Yes -Procedure Performed Yes -Type of Procedure Debridement -Clinical Debridement Muscle -Post Debridement Size (cm) - Length 1.2 -Post Debridement Size (cm) - Width 2.0 -Post Debridement Size (cm) - Depth 0.3 -Total Square Cm 2.40 -Wound/Ulcer Outcome Not Healed -Ulcer Cleansing Rinsed/ Irrigated with Saline -Foul Odor after Cleansing No -Bioengineered Tissue No -Bleeding Controlled with Pressure -Offloading No -Treatment Response Procedure Tolerated Well [See Physician Procedure note for Specifics] Pain Scale: 0-10 Numeric [Pain] -Is Patient Pain Free? Yes Musculoskeletal: Muscle Wasting, Tenderness Neurological: Neuro grossly intact Psych/Mental Status: Normal Affect, Appropriate Debridement Note Post-Debridement Measurements/Treatment WC - Nurse 2 - General Ulcer CM Notes Start: 02/19/20 10:05 Freq: Status: Active Protocol: Activity Type Activity Date Activity User E-Sign Co-Sign Detail Recorded Client Recorded Date Recorded By Document 02/19/20 11:18 DEBORAH [id number] 02/19/20 11:22 DEBORAH 02/19/20 11:18 Wound Center Nurse 2 #8 L Ischium -Time 11:20 -Correct Patient Yes -Correct Side, Site, Position Yes -Correct Procedure Yes -Procedure Performed Yes -Type of Procedure Debridement -Clinical Debridement Muscle -Post Debridement Size (cm) - Length 6.5 -Post Debridement Size (cm) - Width 6.0 -Post Debridement Size (cm) - Depth 0.5 -Total Square Cm 39.00 -Wound/Ulcer Outcome Not Healed -Ulcer Cleansing Rinsed/ Irrigated with Saline -Foul Odor after Cleansing No -Bioengineered Tissue No -Bleeding Controlled with Pressure -Offloading No -Treatment Response Procedure Tolerated Well #7 R Ischium -Time 11:20 -Correct Patient Yes -Correct Side, Site, Position Yes -Correct Procedure Yes -Procedure Performed Yes -Type of Procedure Debridement -Clinical Debridement Muscle -Post Debridement Size (cm) - Length 1.2 -Post Debridement Size (cm) - Width 2.0 -Post Debridement Size (cm) - Depth 0.3 -Total Square Cm 2.40 -Wound/Ulcer Outcome Not Healed -Ulcer Cleansing Rinsed/ Irrigated with Saline -Foul Odor after Cleansing No -Bioengineered Tissue No -Bleeding Controlled with Pressure -Offloading No -Treatment Response Procedure Tolerated Well Pain Scale: 0-10 Numeric Is Patient Pain Free? Yes Wound debrided: Ischial ulcer Laterality: Right Wound Grade/Stage: Stage IV Type of Debridement: Excisional debridement Anesthesia Used: 4% Lidocaine Solution Depth: Down to and including healthy tissue, in the subcutaneous layer, to muscle Percentage of wound debrided: 100 Instrument Used: 7mm curette Tissue Removed: Subcutaneous tissue and slough into the muscle Severity: Fat Layer Exposed Amount of bleeding with debridement: Mild Bleeding Controlled with: Pressure Patient tolerated procedure well - Additional Wound Wound debrided: Ischial ulcer Laterality: Left Wound Grade/Stage: Stage IV Type of Debridement: Excisional debridement Anesthesia Used: 4% Lidocaine Solution Depth: Down to and including healthy tissue, in the subcutaneous layer, to muscle Percentage of wound debrided: 100 Instrument Used: 7mm curette Tissue Removed: Subcutaneous tissue and slough Severity: Fat Layer Exposed Amount of bleeding with debridement: Mild Bleeding Controlled with: Pressure Patient tolerated procedure: Patient tolerated procedure well Assessment/Plan Active Problems (Last Reviewed 05/30/19 @ 14:23 by Estelle Morales) Chronic osteomyelitis, pelvis (Chronic) Severe protein-calorie malnutrition (Chronic) Right ischial pressure sore, stage 4 (Chronic) History of MRSA infection (Chronic) left ischial pressure sore, stage IV (Chronic) extending to the left femur Assessment: 1. Right ischial pressure sore with extension to perineal area, Stage IV. 2. Left ischial pressure sore with extension to the femur, Stage IV. 3. Paraplegia, longstanding. 4. History of MRSA. 5. History of osteomyelitis with multiple prior surgeries. 6. Smoker. 7. Recent seizure, stable, possible medication related. Plan: Continue Silver dressing changes daily to both ischial pressure sores. He had a wound culture on 05/15/19. It showed MRSA, Proteus mirabilis, Klebsiella oxytoca, Pseudomonas aeroginosa, Bacteroides fragilis, and Anaerobic cocci. He was placed on Doxycycline and Augmentin and Acetic Acid dressing changes and has finished them. He was interested in proceeding with a BKA because he is having difficulty with transfer. He states the leg gets in the way. It was scheduled November 07, 2019. Preop cultures were done on 10/23/19. The left ischial ulcer showed Morganella morganii, Proteus mirabilis, E. coli, MRSA, Streptococcus Group F, Corynebacterium minutissimum, and Bacteroides fragilis. The right ischial ulcer showed Providencia rettgeri, Proteus mirabilis, MRSA, Kocuria kristinae, Corynebacterium minutissimum, and Bacteroides fragilis. He was started on Augmentin and Doxycycline. The surgery which was scheduled for 11/07/19 was cancelled due to a seizure. He was started on IV Meropenem and it was thought the medication was responsible. He was started on Keppra. The workup was negative. Surgery was cancelled for now until he is seen by Neurology. He has another appointment with the Neurologist next week. Encourage nutritional supplementation with protein to help the healing process. Encouraged the patient to stop smoking as it may have deleterious effects on wound healing. Followup 4 weeks. [id number]: [id number] Manisha musc/fascia 20 sq cm/< Add On Codes: [id number] Manisha musc/fascia add-on - x2
== END 2020-03-10 23:59 ==
LOC: WC 09:34
PROVIDERS: PCP Internal Medicine; Visit Provider Nurse Practitioner Family
DX: L89.324 Pressure ulcer of left buttock, stage 4 (principal); L89.314 Pressure ulcer of right buttock, stage 4; E43 Unspecified severe protein-calorie malnutrition; Z86.14 Personal history of Methicillin resistant Staphylococcus aureus infection; G82.20 Paraplegia, unspecified; F17.200 Nicotine dependence, unspecified, uncomplicated
CPT/HCPCS: 11043; 11046

== ENCOUNTER → 2020-02-22 11:50 | Outpatient (CLI) | payer MEDICARE, MEDICAID, SELFPAY ==
[2020-02-19 10:57] VITALS: BMI 16.9
[2020-02-22 12:10] LABS: Mucous, Urine 0 SEEN /hpf (<or=2+); Red Blood Cells-Urine 0 SEEN /hpf (0-5); Squamous Epithelial Cells - UA 0 SEEN /hpf (0-5)
[2020-02-22 12:58] LABS: Absolute Lymphocyte Count 1.12 X10^3/uL (0.83-4.51); Absolute Neutrophil Count 6.3 X10^3/uL (2.0-7.7); Basophil# 0.06 X10^3/uL; Basophil% 0.7 % (0-1); Eosinophil# 0.26 X10^3/uL; Hematocrit 40.6 % (40-54); Hemoglobin 12.6 g/dL (13.0-16.5); Lymphocyte # 1.12 X10^3/ul (4.0); Lymphocyte % 12.9 % (19-41); Mean Corpuscular Hgb 28.1 pg (27.0-32.0); Mean Corpuscular Volume 90.4 fL (80-94); Mean Platelet Vol. 10.1 fl (6.2-12.0); Monocyte# 0.94 X10^3/uL; Monocyte% 10.8 % (0-10); NRBC Flagged by Analyzer 0 % (0-5); Neutrophil # 6.29 X10^3/uL (2.7-7.7); Neutrophil % 72.3 % (47-70); Platelet Count 398 K/mm3 (150-450); RBC Distribution Width CV 14.6 % (11.6-14.6); RBC Distribution Width SD 47.5 fl (35.1-43.9); Red Blood Count 4.49 M/mm3 (4.6-6.2); White Blood Count 8.7 K/mm3 (4.4-11.0)
[2020-02-22 13:39] LABS: ALB/GLOB Ratio 0.7 RATIO (0.9-2.4); AST(SGOT) 17 U/L (15-37); Alanine Aminotransfer ALT/SGPT 21 U/L (16-61); Albumin, Serum 2.9 g/dL (3.2-5.0); Alkaline Phosphatase 197 U/L (45-117); Anion Gap 4 (5-15); BUN 27 mg/dL (7-18); BUN/Creat Ratio 42.5 RATIO (10-20); Calcium,Total 8.8 mg/dL (8.5-10.1); Chloride 103 mmol/L (98-107); Creatinine, Serum 0.64 mg/dL (0.70-1.30); EST Glomerular Filtration Rate 141 mL/min (>60); Est Glom Filt Rate - Afr Amer 170 mL/min (>60); Glucose 82 mg/dL (74-106); Iron Binding Capacity,Total 299 ug/dL (250-450); Potassium 4.1 mmol/L (3.5-5.1); Protein, Total 6.9 g/dL (6.4-8.2); Sodium Level 137 mmol/L (136-145); Thyroid Stim Hormone (TSH) 1.48 uIU/mL (0.358-3.74)
[2020-02-22 13:53] LABS: Color, Urine Yellow (Yellow); Glucose, Dipstick Normal (Normal); Ketone-Dipstick Negative (Negative); Leukocyte Esterase-Dipstick 100 /ul (Negative); Nitrite-Dipstick Positive (Negative); Occult Blood-Urine 25 /ul (Negative); Protein-Dipstick 15 mg/dl (Negative); Urine Bilirubin Dipstick Negative (Negative); Urine Clarity Sl. Cloudy (Clear); Urine Urobilinogen Normal (Normal)
[2020-02-22 14:13] LABS: Bacteria 1+ /hpf (None Seen); Triple Phosphate Crystals Ur 4+ /hpf (<or=1+); White Blood Cells 0-5 SEEN /hpf (0-5)
== END ==
PROVIDERS: PCP Internal Medicine; Visit Provider Nurse Practitioner Family
DX: R10.12 Left upper quadrant pain (principal); R61 Generalized hyperhidrosis; E43 Unspecified severe protein-calorie malnutrition; D50.9 Iron deficiency anemia, unspecified
CPT/HCPCS: 36415; 80053; 81001; 83550; 84443; 85025; 87077; 87086; 87088

== ENCOUNTER → 2020-03-22 | Outpatient (CLI) | payer MEDICARE, MEDICAID, SELFPAY ==
[2020-03-18 10:57] VITALS: BMI 16.9
[2020-03-22 16:56] LABS: Bacteria 0 SEEN /hpf (None Seen); Mucous, Urine 0 SEEN /hpf (<or=2+); Squamous Epithelial Cells - UA 0 SEEN /hpf (0-5)
[2020-03-22 18:09] LABS: Color, Urine Yellow (Yellow); Glucose, Dipstick Normal (Normal); Ketone-Dipstick Negative (Negative); Leukocyte Esterase-Dipstick Negative /ul (Negative); Nitrite-Dipstick Negative (Negative); Occult Blood-Urine 10 /ul (Negative); Protein-Dipstick Negative (Negative); Specific Gravity, Urine 1.005 (1.002-1.030); Urine Bilirubin Dipstick Negative (Negative); Urine Clarity Clear (Clear); Urine Urobilinogen Normal (Normal)
[2020-03-22 18:48] LABS: White Blood Cells 5-10 SEEN /hpf (0-5)
[2020-03-22 18:49] LABS: Red Blood Cells-Urine 0-5 SEEN /hpf (0-5)
== END | disposition home or self-care (01) ==
LOC: LABSPEC 16:40
PROVIDERS: Nurse Practitioner Family; PCP Internal Medicine; Referring Provider Internal Medicine; Visit Provider Internal Medicine
DX: N30.00 Acute cystitis without hematuria (principal)
CPT/HCPCS: 81001; 87077; 87086; 87088; 87186

== ENCOUNTER 2020-04-08 11:00 | Outpatient (RCR) | payer MEDICARE, MEDICAID, SELFPAY ==
[2020-02-23 14:08] VITALS: BMI 16.9
[2020-03-11 00:32] VITALS: BP 122/87; PULSE 122; RESP 22; TEMP 36.6
[2020-03-18 10:57] VITALS: BP 128/73; PULSE 102; RESP 18; TEMP 36.5; BMI 16.9
--- NOTE | 2020-03-18 13:13 | PCM.WC.PN ---
(1) left ischial pressure sore, stage IV Status: Chronic Current Visit: Yes Code(s): L89.324 - Pressure ulcer of left buttock, stage 4 Comment: extending to the left femur (2) Right ischial pressure sore, stage 4 Status: Chronic Current Visit: Yes Code(s): L89.314 - Pressure ulcer of right buttock, stage 4 (3) Chronic osteomyelitis, pelvis Status: Chronic Current Visit: Yes Qualifiers: Laterality: unspecified laterality Qualified Code(s): M86.659 - Other chronic osteomyelitis, unspecified thigh Code(s): M86.659 - Other chronic osteomyelitis, unspecified thigh (4) MRSA (methicillin resistant Staphylococcus aureus) infection Status: Acute Current Visit: Yes Code(s): A49.02 - Methicillin resistant Staphylococcus aureus infection, unspecified site (5) History of left below knee amputation Status: Chronic Current Visit: Yes Code(s): Z89.512 - Acquired absence of left leg below knee (6) Severe protein-calorie malnutrition Status: Chronic Current Visit: Yes Code(s): E43 - Unspecified severe protein-calorie malnutrition (7) Chronic paraplegia Status: Chronic Current Visit: Yes Code(s): G82.20 - Paraplegia, unspecified Type of Wound Date of Service: 03/18/20 Chief Complaint: Bilateral ischial pressure sores, Stage IV. History of Wound: Patient has long standing bilateral ischial pressure sores, Stage IV, with the left side extending to the femoral head and the right side extending to the perineal area and the prostate. Surgery would entail quite extensive excision with amputations at a tertiary center. Patient does not want to pursue any heroic surgeries at this time since it is not a guarantee his pressure issues won't recur. With aggressive amputations, his already tenuous balance would be even more disrupted. Today he denies any fever. His appetite is ok. At the present time, we are providing conservative care on a monthly basis. He had a wound culture on 05/15/19 which showed MRSA, Proteus mirabilis, Klebsiella oxytoca, Pseudomonas aeroginosa, Bacteroides fragilis, and Anaerobic cocci. He was treated with Doxycycline and Augmentin as well as Acetic Acid dressing changes. The Acetic Acid dressing changes were thern changed to Silver dressing changes. He was recently hospitalized in July for urinary infection. He was discharged on Meropenem. He states his right leg gets in the way when transferring. He is interested in proceeding with a BKA. Preop cultures were done on 10/23/19. The left ischial ulcer showed Morganella morganii, Proteus mirabilis, E. coli, MRSA, Streptococcus Group F, Corynebacterium minutissimum, and Bacteroides fragilis. The right ischial ulcer showed Providencia rettgeri, Proteus mirabilis, MRSA, Kocuria kristinae, Corynebacterium minutissimum, and Bacteroides fragilis. He was started on Augmentin and Doxycycline. The surgery was scheduled for 11/07/19. It was cancelled due to a seizure. He was started on IV Meropenem and it was thought the medication was responsible. He was started on Keppra. The workup was negative. Surgery was cancelled for now until he is seen by Neurology. The patient states the Neurologist had ordered several tests. But everything looks like it was related to the antibiotics. Today he denies any fever. He states his appetite is ok. Progress of Wound: Stable - Physical Exam Vital Signs Temp Pulse Resp BP 97.7 F L 102 H 18 128/73 H 03/18/20 10:57 03/18/20 10:57 03/18/20 10:57 03/18/20 10:57 General: Alert, Oriented x3, Cooperative HEENT: Atraumatic Oral: Moist Mucosa Lungs: Normal air movement Cardiovascular: Regular rate Extremities: Capillary Refill Less than 3 Seconds Skin: Ulcer/ Wound - Stage IV right ischial ulcer and Stage IV left ischial ulcer that are both stable. Wound Measurements and Assessment WC - Nurse 1 - General Ulcer Measurement Start: 03/18/20 10:57 Freq: Status: Active Protocol: Activity Type Activity Date Activity User E-Sign Co-Sign Detail Recorded Client Recorded Date Recorded By Document 03/18/20 10:57 MW [id number] 03/18/20 11:08 MW 03/18/20 10:57 Wound Center Nurse 1 [Ulcer Assessment] #8 L Ischium -Combined with other wound No -Current Size (cm) - Length 6.1 -Current Size (cm) - Width 5.2 -Current Size (cm) - Depth 0.2 -Total Square Cm 31.72 -Photo Taken Yes -Epithelialization None Present -Tunneling No -Undermining/Tunneling No -Circular Undermining No -Exudate Amt Large -Exudate Type Serosanguineous -Wound Margin Thickened & Rolled Under -Granulation Amt Medium (34-66%) -Granulation Quality Arnold Line -Slough/Fibrin Yes -Necrosis Amt Medium (34-66%) -Necrotic Tissue Type Adherent Slough -Structure Exposed N/A -Texture (Steffi-wound Skin Appearance) Assessed, Scarring -Moisture (Steffi-wound Skin Appearance No Abnormality, ) Assessed -Color (Steffi-wound Skin Appearance) No Abnormality, Assessed -Temperature (Steffi-wound Skin No Abnormality Appearance) (Pt Warm) -Tenderness on Palpation (Steffi-wound Yes Skin Appearance) -Ulcer Cleansing soap and water -Foul Odor after Cleansing No -Anesthetic Used 4% Lidocaine Solution #7 R Ischium -Combined with other wound No -Current Size (cm) - Length 1.0 -Current Size (cm) - Width 1.4 -Current Size (cm) - Depth 0.1 -Total Square Cm 1.40 -Date of Last Picture (Recall this 03/18/20 field) -Photo Taken Yes -Epithelialization None Present -Tunneling No -Undermining/Tunneling No -Circular Undermining No -Exudate Amt Medium -Exudate Type Serosanguineous -Wound Margin Thickened & Rolled Under -Granulation Amt Medium (34-66%) -Granulation Quality Arnold Line -Slough/Fibrin Yes -Necrosis Amt Medium (34-66%) -Necrotic Tissue Type Adherent Slough -Structure Exposed N/A -Texture (Steffi-wound Skin Appearance) Assessed, Scarring -Moisture (Steffi-wound Skin Appearance No Abnormality, ) Assessed -Color (Steffi-wound Skin Appearance) No Abnormality, Assessed -Temperature (Steffi-wound Skin No Abnormality Appearance) (Pt Warm) -Tenderness on Palpation (Steffi-wound No Skin Appearance) -Ulcer Cleansing soap and water -Foul Odor after Cleansing No -Anesthetic Used 4% Lidocaine Solution [Edema Assessment] -Lower Limb Edema Present No WC - Nurse 2 - General Ulcer CM Notes Start: 03/18/20 10:57 Freq: Status: Active Protocol: Activity Type Activity Date Activity User E-Sign Co-Sign Detail Recorded Client Recorded Date Recorded By Document 03/18/20 11:26 [email or web address] [id number] 03/18/20 11:31 03/18/20 11:26 Wound Center Nurse 2 [Procedure/Treatment] #8 L Ischium -Time 11:26 -Correct Patient Yes -Correct Side, Site, Position Yes -Correct Procedure Yes -Procedure Performed Yes -Type of Procedure Debridement -Clinical Debridement Muscle -Post Debridement Size (cm) - Length 6.8 -Post Debridement Size (cm) - Width 6.0 -Post Debridement Size (cm) - Depth 0.6 -Total Square Cm 40.80 -Wound/Ulcer Outcome Not Healed -Ulcer Cleansing Rinsed/ Irrigated with Saline -Foul Odor after Cleansing No -Bioengineered Tissue No -Bleeding Controlled with Pressure -Offloading No -Treatment Response Procedure Tolerated Well #7 R Ischium -Time 11:26 -Correct Patient Yes -Correct Side, Site, Position Yes -Correct Procedure Yes -Procedure Performed Yes -Type of Procedure Debridement -Clinical Debridement Muscle -Post Debridement Size (cm) - Length 2.0 -Post Debridement Size (cm) - Width 2.0 -Post Debridement Size (cm) - Depth 0.2 -Total Square Cm 4.00 -Wound/Ulcer Outcome Not Healed -Ulcer Cleansing Rinsed/ Irrigated with Saline -Foul Odor after Cleansing No -Bioengineered Tissue No -Bleeding Controlled with Pressure -Offloading No -Treatment Response Procedure Tolerated Well [See Physician Procedure note for Specifics] Pain Scale: 0-10 Numeric [Pain] -Is Patient Pain Free? Yes Musculoskeletal: No Tenderness to Palpation of Joints or Extremities Neurological: Neuro grossly intact Psych/Mental Status: Normal Affect, Appropriate Debridement Note Post-Debridement Measurements/Treatment WC - Nurse 2 - General Ulcer CM Notes Start: 03/18/20 10:57 Freq: Status: Active Protocol: Activity Type Activity Date Activity User E-Sign Co-Sign Detail Recorded Client Recorded Date Recorded By Document 03/18/20 11:26 [id number] 03/18/20 11:31 03/18/20 11:26 Wound Center Nurse 2 #8 L Ischium -Time 11:26 -Correct Patient Yes -Correct Side, Site, Position Yes -Correct Procedure Yes -Procedure Performed Yes -Type of Procedure Debridement -Clinical Debridement Muscle -Post Debridement Size (cm) - Length 6.8 -Post Debridement Size (cm) - Width 6.0 -Post Debridement Size (cm) - Depth 0.6 -Total Square Cm 40.80 -Wound/Ulcer Outcome Not Healed -Ulcer Cleansing Rinsed/ Irrigated with Saline -Foul Odor after Cleansing No -Bioengineered Tissue No -Bleeding Controlled with Pressure -Offloading No -Treatment Response Procedure Tolerated Well #7 R Ischium -Time 11:26 -Correct Patient Yes -Correct Side, Site, Position Yes -Correct Procedure Yes -Procedure Performed Yes -Type of Procedure Debridement -Clinical Debridement Muscle -Post Debridement Size (cm) - Length 2.0 -Post Debridement Size (cm) - Width 2.0 -Post Debridement Size (cm) - Depth 0.2 -Total Square Cm 4.00 -Wound/Ulcer Outcome Not Healed -Ulcer Cleansing Rinsed/ Irrigated with Saline -Foul Odor after Cleansing No -Bioengineered Tissue No -Bleeding Controlled with Pressure -Offloading No -Treatment Response Procedure Tolerated Well Pain Scale: 0-10 Numeric Is Patient Pain Free? Yes Wound debrided: Ischial ulcer Laterality: Right Wound Grade/Stage: Stage IV Type of Debridement: Excisional debridement Anesthesia Used: 4% Lidocaine Solution Depth: Down to and including healthy tissue, in the subcutaneous layer, to muscle Percentage of wound debrided: 100 Instrument Used: 5mm curette Tissue Removed: Subcutaneous tissue and slough into the muscle Severity: Fat Layer Exposed Amount of bleeding with debridement: Mild Bleeding Controlled with: Pressure Patient tolerated procedure well - Additional Wound Wound debrided: Ischial ulcer Laterality: Left Wound Grade/Stage: Stage IV Type of Debridement: Excisional debridement Anesthesia Used: 4% Lidocaine Solution Depth: in the subcutaneous layer, to muscle Percentage of wound debrided: 100 Instrument Used: 7mm curette Tissue Removed: Subcutaneous tissue and slough into the muscle Severity: Fat Layer Exposed Amount of bleeding with debridement: Mild Bleeding Controlled with: Pressure Patient tolerated procedure: Patient tolerated procedure well Assessment/Plan Active Problems (Last Reviewed 02/23/20 @ 13:50 by Kathleen Infante) Chronic osteomyelitis, pelvis (Chronic) MRSA (methicillin resistant Staphylococcus aureus) infection (Acute) History of left below knee amputation (Chronic) Severe protein-calorie malnutrition (Chronic) Right ischial pressure sore, stage 4 (Chronic) Chronic paraplegia (Chronic) left ischial pressure sore, stage IV (Chronic) extending to the left femur Assessment: 1. Right ischial pressure sore with extension to perineal area, Stage IV. 2. Left ischial pressure sore with extension to the femur, Stage IV. 3. Paraplegia, longstanding. 4. History of MRSA. 5. History of osteomyelitis with multiple prior surgeries. 6. Smoker. 7. Recent seizure, stable, possible medication related. Plan: Continue Silver dressing changes daily to both ischial pressure sores. He had a wound culture on 05/15/19. It showed MRSA, Proteus mirabilis, Klebsiella oxytoca, Pseudomonas aeroginosa, Bacteroides fragilis, and Anaerobic cocci. He was placed on Doxycycline and Augmentin and Acetic Acid dressing changes and has finished them. He was interested in proceeding with a BKA because he is having difficulty with transfer. He states the leg gets in the way. It was scheduled November 07, 2019. Preop cultures were done on 10/23/19. The left ischial ulcer showed Morganella morganii, Proteus mirabilis, E. coli, MRSA, Streptococcus Group F, Corynebacterium minutissimum, and Bacteroides fragilis. The right ischial ulcer showed Providencia rettgeri, Proteus mirabilis, MRSA, Kocuria kristinae, Corynebacterium minutissimum, and Bacteroides fragilis. He was started on Augmentin and Doxycycline. The surgery which was scheduled for 11/07/19 was cancelled due to a seizure. He was started on IV Meropenem and it was thought the medication was responsible. He was started on Keppra. The workup was negative. Surgery was cancelled for now,he is seen by Neurology. They believe it was an interaction with some of his antibiotics. Encourage nutritional supplementation with protein to help the healing process. Encouraged the patient to stop smoking as it may have deleterious effects on wound healing. Followup 4 weeks. [id number]: [id number] Manisha musc/fascia 20 sq cm/< Add On Codes: [id number] Manisha subq tissue add-on - x2
[2020-04-08 10:53] VITALS: BP 129/79; PULSE 114; RESP 20; TEMP 37.2; BMI 16.9
--- NOTE | 2020-04-08 13:08 | PN.PCM_ITS ---
(1) left ischial pressure sore, stage IV Status: Chronic Current Visit: Yes Code(s): L89.324 - Pressure ulcer of left buttock, stage 4 Comment: extending to the left femur (2) Right ischial pressure sore, stage 4 Status: Chronic Current Visit: Yes Code(s): L89.314 - Pressure ulcer of right buttock, stage 4 (3) Chronic osteomyelitis, pelvis Status: Chronic Current Visit: Yes Qualifiers: Laterality: unspecified laterality Qualified Code(s): M86.659 - Other chronic osteomyelitis, unspecified thigh Code(s): M86.659 - Other chronic osteomyelitis, unspecified thigh (4) History of left below knee amputation Status: Chronic Current Visit: Yes Code(s): Z89.512 - Acquired absence of left leg below knee (5) Severe protein-calorie malnutrition Status: Chronic Current Visit: Yes Code(s): E43 - Unspecified severe protein-calorie malnutrition (6) Chronic paraplegia Status: Chronic Current Visit: Yes Code(s): G82.20 - Paraplegia, unspecified Type of Wound Date of Service: 04/08/20 Chief Complaint: Bilateral ischial pressure sores, Stage IV. History of Wound: Patient has long standing bilateral ischial pressure sores, Stage IV, with the left side extending to the femoral head and the right side extending to the perineal area and the prostate. Surgery would entail quite extensive excision with amputations at a tertiary center. Patient does not want to pursue any heroic surgeries at this time since it is not a guarantee his pres sure issues won't recur. With aggressive amputations, his already tenuous balance would be even more disrupted. Today he denies any fever. His appetite is ok. At the present time, we are providing conservative care on a monthly basis. He had a wound culture on 05/15/19 which showed MRSA, Proteus mirabilis, Klebsiella oxytoca, Pseudomonas aeroginosa, Bacteroides fragilis, and Anaerobic cocci. He was treated with Doxycycline and Augmentin as well as Acetic Acid dressing changes. The Acetic Acid dressing changes were thern changed to Silver dressing changes. He was recently hospitalized in July for urinary infection. He was discharged on Meropenem. He states his right leg gets in the way when transferring. He is interested in proceeding with a BKA. Preop cultures were done on 10/23/19. The left ischial ulcer showed Morganella morganii, Proteus mirabilis, E. coli, MRSA, Streptococcus Group F, Corynebacterium minutissimum, and Bacteroides fragilis. The right ischial ulcer showed Providencia rettgeri, Proteus mirabilis, MRSA, Kocuria kristinae, Corynebacterium minutissimum, and Bacteroides fragilis. He was started on Augmentin and Doxycycline. The surgery was scheduled for 11/07/19. It was cancelled due to a seizure. He was started on IV Meropenem and it was thought the medication was responsible. He was started on Keppra. The workup was negative. Surgery was cancelled for now until he is seen by Neurology. The patient states the Neurologist had ordered several tests. But everything looks like it was related to the antibiotics. Today he denies any fever. He states his appetite is ok. Progress of Wound: Stable - Physical Exam Vital Signs Temp Pulse Resp BP 99 F 114 H 20 H 129/79 H 04/08/20 10:53 04/08/20 10:53 04/08/20 10:53 04/08/20 10:53 General: Alert, Oriented x3, Cooperative HEENT: Atraumatic Oral: Moist Mucosa Lungs: Normal air movement Cardiovascular: Regular rate Extremities: No edema Skin: Ulcer/ Wound - Left ischial ulcer with tunnelling that when patient moves synovial fluid leaks around the edge of the ulcer. Right ischial ulcer with tunneling that started to bleed after debridement and unable to control bleeding with pressure for 20 minutes and silver nitrate. Wound Measurements and Assessment WC - Nurse 1 - General Ulcer Measurement Start: 03/18/20 10:57 Freq: Status: Active Protocol: Activity Type Activity Date Activity User E-Sign Co-Sign Detail Recorded Client Recorded Date Recorded By Document 04/08/20 10:53 DL [id number] 04/08/20 11:00 DL 04/08/20 10:53 Wound Center Nurse 1 [Ulcer Assessment] #8 L Ischium -Current Size (cm) - Length 6 -Current Size (cm) - Width 6 -Current Size (cm) - Depth 0.7 -Total Square Cm 36 -Photo Taken No -Exudate Amt Small -Exudate Type Serosanguineous -Wound Margin Thickened & Rolled Under -Granulation Amt Large (67-100%) -Granulation Quality [place],Red -Necrosis Amt Small (1-33%) -Necrotic Tissue Type Adherent Slough -Structure Exposed N/A -Texture (Steffi-wound Skin Appearance) Scarring -Moisture (Steffi-wound Skin Appearance No Abnormality ) -Color (Steffi-wound Skin Appearance) No Abnormality -Ulcer Cleansing Wound Cleanser -Foul Odor after Cleansing No -Anesthetic Used 4% Lidocaine Solution #7 R Ischium -Current Size (cm) - Length 3.1 -Current Size (cm) - Width 3.3 -Current Size (cm) - Depth 0.2 -Total Square Cm 10.23 -Tunneling Position (O'clock) 12 -Tunneling Distance (cm) 4.5 -Exudate Amt Small -Exudate Type Serosanguineous -Wound Margin Thickened & Rolled Under -Granulation Amt Large (67-100%) -Granulation Quality [place] -Necrosis Amt Small (1-33%) -Necrotic Tissue Type Adherent Slough -Structure Exposed N/A -Texture (Steffi-wound Skin Appearance) Scarring -Moisture (Steffi-wound Skin Appearance No Abnormality ) -Color (Steffi-wound Skin Appearance) No Abnormality -Temperature (Steffi-wound Skin No Abnormality Appearance) (Pt Warm) -Tenderness on Palpation (Steffi-wound No Skin Appearance) -Anesthetic Used 4% Lidocaine Solution WC - Nurse 2 - General Ulcer CM Notes Start: 03/18/20 10:57 Freq: Status: Active Protocol: Activity Type Activity Date Activity User E-Sign Co-Sign Detail Recorded Client Recorded Date Recorded By Document 04/08/20 11:38 [id number] 04/08/20 11:45 [email or web address] 04/08/20 11:38 Wound Center Nurse 2 [Procedure/Treatment] #8 L Ischium -Time 11:38 -Correct Patient Yes -Correct Side, Site, Position Yes -Correct Procedure Yes -Procedure Performed Yes -Type of Procedure Debridement -Clinical Debridement Muscle -Post Debridement Size (cm) - Length 6.8 -Post Debridement Size (cm) - Width 6.5 -Post Debridement Size (cm) - Depth 0.9 -Total Square Cm 44.20 -Wound/Ulcer Outcome Not Healed -Ulcer Cleansing Rinsed/ Irrigated with Saline -Foul Odor after Cleansing No -Bioengineered Tissue No -Bleeding Controlled with Pressure -Offloading No -Treatment Response Procedure Tolerated Well #7 R Ischium -Time 11:39 -Correct Patient Yes -Correct Side, Site, Position Yes -Correct Procedure Yes -Procedure Performed Yes -Type of Procedure Debridement -Clinical Debridement Muscle -Post Debridement Size (cm) - Length 4.5 -Post Debridement Size (cm) - Width 5.0 -Post Debridement Size (cm) - Depth 0.2 -Total Square Cm 22.50 -Wound/Ulcer Outcome Not Healed -Ulcer Cleansing Rinsed/ Irrigated with Saline -Foul Odor after Cleansing No -Bioengineered Tissue No -Bleeding Controlled with Pressure,Silver Nitrate -Other tunnel at 12:00 --7.8cm -Offloading No -Treatment Response Procedure Tolerated Well [See Physician Procedure note for Specifics] Pain Scale: 0-10 Numeric [Pain] -Is Patient Pain Free? Yes Musculoskeletal: Tenderness Neurological: Neuro grossly intact Psych/Mental Status: Normal Affect, Appropriate Debridement Note Post-Debridement Measurements/Treatment WC - Nurse 2 - General Ulcer CM Notes Start: 03/18/20 10:57 Freq: Status: Active Protocol: Activity Type Activity Date Activity User E-Sign Co-Sign Detail Recorded Client Recorded Date Recorded By Document 03/18/20 11:26 [id number] 03/18/20 11:31 Document 04/08/20 11:38 [id number] 04/08/20 11:45 03/18/20 04/08/20 11:26 11:38 Wound Center Nurse 2 #8 L Ischium -Time 11:26 11:38 -Correct Patient Yes Yes -Correct Side, Site, Position Yes Yes -Correct Procedure Yes Yes -Procedure Performed Yes Yes -Type of Procedure Debridement Debridement -Clinical Debridement Muscle Muscle -Post Debridement Size (cm) - Length 6.8 6.8 -Post Debridement Size (cm) - Width 6.0 6.5 -Post Debridement Size (cm) - Depth 0.6 0.9 -Total Square Cm 40.80 44.20 -Wound/Ulcer Outcome Not Healed Not Healed -Ulcer Cleansing Rinsed/ Rinsed/ Irrigated with Irrigated with Saline Saline -Foul Odor after Cleansing No No -Bioengineered Tissue No No -Bleeding Controlled with Pressure Pressure -Offloading No No -Treatment Response Procedure Procedure Tolerated Well Tolerated Well #7 R Ischium -Time 11:26 11:39 -Correct Patient Yes Yes -Correct Side, Site, Position Yes Yes -Correct Procedure Yes Yes -Procedure Performed Yes Yes -Type of Procedure Debridement Debridement -Clinical Debridement Muscle Muscle -Post Debridement Size (cm) - Length 2.0 4.5 -Post Debridement Size (cm) - Width 2.0 5.0 -Post Debridement Size (cm) - Depth 0.2 0.2 -Total Square Cm 4.00 22.50 -Wound/Ulcer Outcome Not Healed Not Healed -Ulcer Cleansing Rinsed/ Rinsed/ Irrigated with Irrigated with Saline Saline -Foul Odor after Cleansing No No -Bioengineered Tissue No No -Bleeding Controlled with Pressure Pressure,Silver Nitrate -Other tunnel at 12:00 --7.8cm -Offloading No No -Treatment Response Procedure Procedure Tolerated Well Tolerated Well Pain Scale: 0-10 Numeric Is Patient Pain Free? Yes Yes Wound debrided: ischial ulcer Laterality: Left Type of Debridement: Excisional debridement Anesthesia Used: 5% Lidocaine Gel Depth: Down to and including healthy tissue, in the subcutaneous layer, to muscle Percentage of wound debrided: 100 Instrument Used: 5mm curette Tissue Removed: Subcutaneous tissue and slough into the muscle Severity: Fat Layer Exposed Amount of bleeding with debridement: Mild Bleeding Controlled with: Pressure Patient tolerated procedure well - Additional Wound Wound debrided: ischial ulcer with tunnel at 12 o'clock Laterality: Right Type of Debridement: Excisional debridement Anesthesia Used: 5% Lidocaine Gel Depth: Down to and including healthy tissue, in the subcutaneous layer, to muscle Percentage of wound debrided: 100 Instrument Used: 5mm curette Tissue Removed: Subcutaneous tissue and slough into the muscle Severity: Fat Layer Exposed Amount of bleeding with debridement: Moderate Bleeding Controlled with: Pressure, Compression and gauze, Silver Nitrate - Unable to control bleeding with compression and silver nitrate. Everytime packing from the tunnel was removed, it would start to bleed. Spoke with collaborative physician, Dr. Urban, and will send patient to the ED to get the bleeding undercontol. Patient tolerated procedure: Patient tolerated procedure well Assessment/Plan Active Problems (Last Reviewed 02/23/20 @ 13:50 by Kathleen Infante) Chronic osteomyelitis, pelvis (Chronic) MRSA (methicillin resistant Staphylococcus aureus) infection (Acute) History of left below knee amputation (Chronic) Severe protein-calorie malnutrition (Chronic) Right ischial pressure sore, stage 4 (Chronic) Chronic paraplegia (Chronic) left ischial pressure sore, stage IV (Chronic) extending to the left femur Assessment: 1. Right ischial pressure sore with extension to perineal area, Stage IV. 2. Left ischial pressure sore with extension to the femur, Stage IV. 3. Paraplegia, longstanding. 4. History of MRSA. 5. History of osteomyelitis with multiple prior surgeries. 6. Smoker. 7. Recent seizure, stable, possible medication related. Plan: Continue Silver dressing changes daily to both ischial pressure sores. He had a wound culture on 05/15/19. It showed MRSA, Proteus mirabilis, Klebsiella oxytoca, Pseudomonas aeroginosa, Bacteroides fragilis, and Anaerobic cocci. He was placed on Doxycycline and Augmentin and Acetic Acid dressing changes and has finished them. He was interested in proceeding with a BKA because he is having difficulty with transfer. He states the leg gets in the way. It was scheduled November 07, 2019. Preop cultures were done on 10/23/19. The left ischial ulcer showed Morganella morganii, Proteus mirabilis, E. coli, MRSA, Streptococcus Group F, Corynebacterium minutissimum, and Bacteroides fragilis. The right ischial ulcer showed Providencia rettgeri, Proteus mirabilis, MRSA, Kocuria kristinae, Corynebacterium minutissimum, and Bacteroides fragilis. He was started on Augmentin and Doxycycline. The surgery which was scheduled for 11/07/19 was cancelled due to a seizure. He was started on IV Meropenem and it was thought the medication was responsible. He was started on Keppra. The workup was negative. Surgery was cancelled for now,he is seen by Neurology. They believe it was an interaction with some of his antibiotics. On the right there is a 7 cm tunnel. Tunnel started to bleed after debridement. Unable to get bleeding to stop after holding pressure for over 20 minutes, pressure dressing and silver nitrate. Spoke with Dr. Urban and will send patient to the ED for further evaluation to help with the bleeding. Encourage nutritional supplementation with protein to help the healing process. Encouraged the patient to stop smoking as it may have deleterious effects on wound healing. Followup 4 weeks. [id number]: [id number] Manisha musc/fascia 20 sq cm/< Add On Codes: [id number] Manisha musc/fascia add-on - x3
== END 2020-04-09 23:59 ==
LOC: WC 11:00
PROVIDERS: PCP Internal Medicine; Visit Provider Nurse Practitioner Family
DX: L89.324 Pressure ulcer of left buttock, stage 4 (principal); L89.314 Pressure ulcer of right buttock, stage 4; M86.659 Other chronic osteomyelitis, unspecified thigh; Z89.512 Acquired absence of left leg below knee; Z86.14 Personal history of Methicillin resistant Staphylococcus aureus infection; G82.20 Paraplegia, unspecified; E43 Unspecified severe protein-calorie malnutrition; F17.200 Nicotine dependence, unspecified, uncomplicated
CPT/HCPCS: 11043; 11046

== ENCOUNTER 2020-04-08 12:33 | Day surgery (SDC) | payer MEDICARE, MEDICAID, SELFPAY ==
[2020-04-08] VITALS (10 sets, daily range): BP systolic 84–141; BP diastolic 41–82; PULSE 63–126; RESP 14–16; TEMP 35.8–36.7; O2SAT 96–100; BMI 16.9; BMI 19.5
--- NOTE | 2020-04-08 13:54 | ED.RN ---
PT STATES HE CAN DO THIS AT HOME. THIS RN TOLD HIM WE ARE FULL TODAY AND VERY BUSY. STATES HE WANTS TO LEAVE WITHOUT BEING SEEN BY DOCTOR
--- NOTE | 2020-04-08 14:01 | ED.RN ---
PT STATES HE WANTS TO STAY TO BE EVALUATED NOW. DR TRUONG MADE AWARE
--- NOTE | 2020-04-08 14:28 | ED.DCSUM_ITS ---
History of Present Illness Chief Complaint: Wound Check Informant: Patient, Family Narrative: Patient presents the emergency room with bleeding from his chronic decubitus wounds. Patient was at the wound care center this morning reportedly underwent a debridement. He had bleeding from the right decubitus wound. Reportedly there is a tract to the hip. He tells me that they tried packing and it continued to bleed. He denies taking any blood thinners. Past Medical History - Allergies and Home Meds Allergies/Adverse Reactions: Allergies cephalexin monohydrate [From Keflex] Allergy (Verified 04/08/20 12:34) Itching ciprofloxacin [From Cipro] Allergy (Verified 04/08/20 12:34) Hives ciprofloxacin HCl [From Cipro] Allergy (Verified 04/08/20 12:34) Hives latex Allergy (Verified 04/08/20 12:34) Hives pt states only if indwelling catheter nitrofurantoin [From Macrobid] Allergy (Verified 04/08/20 12:34) Hives nitrofurantoin macrocrystalline [From Macrobid] Allergy (Verified 04/08/20 12:34) Hives Quinolones Allergy (Verified 04/08/20 12:34) Hives sulfamethoxazole Allergy (Verified 04/08/20 12:34) Hives Surgical History: - - L BKA, R Hydrocelectomy, debridement left trochanteric pressure sore, debridement right trochanteric pressure sore, partial ostectomy secondary to ostomy mellitus, reconstruction with a vastus lateralis muscle flap and split thickness skin grafting reconstruction from the right flank, I&D as well as debridement of nonhealing ulcerations of the lateral thighs, excision right ischial and perineal pressure sores, diverting urostomy, excision of ischial pressure sores. Smoking Status: Former smoker - Family History Paternal Family History: Family History (Last Reviewed 02/23/20 @ 13:51 by Kathleen Infante) Unknown Breast cancer Family History: Reports: Hypertension Maternal Family History: Family History (Last Reviewed 02/23/20 @ 13:51 by Kathleen Infante) Unknown Breast cancer Family History: Reports: Cancer, Dementia Review of Systems General: Denies: Chills, Fever, Sweats Eyes: Denies: Visual changes - bilaterally, Diplopia ENT: Denies: Rhinorrhea, Sore throat Cardiovascular: Denies: Chest pain, Palpitations Respiratory: Denies: Dyspnea, Cough, Dyspnea on exertion Gastrointestinal: Denies: Abdominal pain, Nausea, Vomiting, Diarrhea, Melena, Hematochezia Genitourinary: Denies: Dysuria, Hematuria, Frequency Musculoskeletal: Denies: Back pain, Extremity Pain Skin: Reports: Wounds. Denies: Rash Neurological: Denies: Headache, Weakness, Numbness Physical Exam Vital Signs/Narrative: Vital Signs Temp Pulse Resp Pulse Ox 04/08/20 12:34 97.3 F L 63 14 97 Inital Vital Signs reviewed: Yes General: Well nourished, Well developed, No Acute Distress Head: Normocephalic, Atraumatic Eyes: Perrl, EOMI ENT: Moist mucous membranes, No rhinorrhea Neck: Supple, Nontender Cardiovascular: Regular rate, Regular rhythm, No murmurs Respiratory: No distress, CTA bilaterally, Chest nontender Abdomen: Soft, Nontender, Nondistended, Normal bowel sounds Back: Nontender, Normal Inspection Extremities: Nontender, No edema Skin: - - There are chronic appearing decubitus ulcers of the bilateral hip/buttocks. The left does not appear to have any bleeding coming from the wound. No obvious signs of infection. The right wound has a bleeding coming from a packed area. This packing was removed and continued to bleed. Neurological: Alert, Oriented x3, Cranial nerves II-XII grossly intact, Normal Strength Diagnostic/Tx/Re-eval - Medical Decision Making I placed Surgicel into the tract and then applied a large amount of gauze and an ABD. This continued to bleed so I spoke with Dr. Urban who is come to the emergency department to evaluate the patient. I am informed that the plan will be to take the patient to the operating room. ED Disposition - Plan for ED Patient: Disposition: Acute Care Hospital [facility] Diagnosis: Bleeding from left hip wound, Chronic osteomyelitis, pelvis, MRSA (methicillin resistant Staphylococcus aureus) infection, Right ischial pressure sore, stage 4, left ischial pressure sore, stage IV
[2020-04-08] MEDS: Lactated Ringers 1,000 ML 75 ML IV (15:53)
[2020-04-08] MEDS: Silver Nitrate (BKC) 10 EACH TOPICAL (15:57)
[2020-04-08 16:01] LABS: Hematocrit 44.5 % (40-54); Hemoglobin 13.7 g/dL (13.0-16.5); Mean Corp Hgb Conc 30.8 g/dL (32-36); Mean Corpuscular Hgb 27.7 pg (27.0-32.0); Mean Corpuscular Volume 90.1 fL (80-94); Mean Platelet Vol. 10.1 fl (6.2-12.0); Platelet Count 460 K/mm3 (150-450); RBC Distribution Width CV 14.4 % (11.6-14.6); Red Blood Count 4.94 M/mm3 (4.6-6.2); White Blood Count 17.5 K/mm3 (4.4-11.0)
[2020-04-08 16:08] LABS: Anion Gap 5 (5-15); BUN 26 mg/dL (7-18); BUN/Creat Ratio 35.3 RATIO (10-20); Calcium,Total 8.6 mg/dL (8.5-10.1); Chloride 107 mmol/L (98-107); Creatinine, Serum 0.74 mg/dL (0.70-1.30); EST Glomerular Filtration Rate 118 mL/min (>60); Est Glom Filt Rate - Afr Amer 143 mL/min (>60); Estimated Creatinine Clearance 104.88 ml/min; Glucose 115 mg/dL (74-106); Potassium 3.9 mmol/L (3.5-5.1); Sodium Level 141 mmol/L (136-145)
--- NOTE | 2020-04-08 16:15 | PRES_PTH ---
PATIENT: RICCARDO NERI LOC: [facility] [place] U#:[id number] AGE/SX: 54/M ROOM: RE04/08/[address]: Dr. Osvaldo Urban MD : 1965 BED: DIS: 04/08/2020 SPEC #: [id number] RECD: 04/09/20 07:12 STATUS: EMY JOAQUIN #: [id number] GERMAIN: 04/08/20 16:[address]: Osvaldo Urban DEPT: SURGICAL PATHOLOGY RECD BY: Erick Collazo ENTERED: 04/09/20 09:48 SP TYPE: PRESS SORE MARCIE DR: Dr. Rayo Jose MD Tissues: Ischium, NOS Procedures: Decalcification bone/plaque Surgery Specimen Level IV HEADER OPERATION: Excision right ischial pressure sore PRE-OP DIAGNOSIS: Right ischial pressure sore stage IV TISSUE SUBMITTED: Right ischial pressure sore MICROSCOPIC DIAGNOSIS Right ischial pressure sore: A piece of skin with underlying tissue with focal ulceration and acute inflammation. Pseudoepitheliomatous hyperplasia, verrucous features, hyperkeratosis and parakeratosis. Underlying tissue with dense fibrosis. BREANNA:cathi 04/10/20 MICROSCOPIC DESCRIPTION Slides are reviewed. GROSS DESCRIPTION Received in fixative is one container labeled with the patient's name and designated right ischial tissue. The specimen consists of an irregular fragment of infante skin with attached indurated infante-yellow soft tissue. The specimen measures 4 x 2.5 cm and a depth of excision measuring 2.2 cm. Serial sections do not reveal mass lesions. Management Department Chair sections are submitted in two cassettes. / AM:cathi 04/09/20 TC:2 CPT: 50106
--- NOTE | 2020-04-08 17:20 | PCM.PN.SRG ---
Subjective: Patient known to me. Has bilateral ischial pressure sores, Stage IV, and has been coming to the Wound Center every 1-2 months for conservative care. Today at the Wound Center the pressure sore ulcers were debrided. Some bleeding occurred on the right that could not be controlled with gauze compression and silver nitrate. He came to the ED for further evaluation. It was difficult to obtain hemostasis because the bleeding was in the undermined area. Operative excision of this bleeding right ischial/perineal pressure sore was recommended to get control of the bleeding. The undermined area would be excised to get control of the bleeding and to help with postop wound care. Preop Hgb was 13.7. - Physical Exam Vitals/I&O's: Vital Signs Temp Pulse Resp Pulse Ox 97.3 F L 63 14 97 04/08/20 12:34 04/08/20 12:34 04/08/20 12:34 04/08/20 12:34 Oxygen Delivery Method Room Air Weight: 140 lb Body Mass Index (BMI) 19.5 General: Alert, Oriented x3, Non-Cooperative HEENT: PERRLA, EOMI Oral: Moist Mucosa Neck: Supple Abdomen: Soft, Non-Distended Skin: Ulcer/ Wound - right ischial/perineal pressure sore, Stage IV, has some undermining posteriorly. In the past there was involvement of the prostate. The bleeding could not be stopped in the ED. I suspect involvement of the prostate. Operative intervention is necessary to contol the bleeding. Neurological: Cranial nerves II-XII grossly intact Psych/Mental Status: Normal Affect, Appropriate Laboratory Results 04/08/20 15:43: WBC 17.5 H, RBC 4.94, Hgb 13.7, Hct 44.5, MCV 90.1, MCH 27.7, MCHC 30.8 L, RDW Std Deviation 47.0 H, RDW Coeff of Morteza 14.4, Plt Count 460 H, MPV 10.1 04/08/20 15:43: Sodium 141, Potassium 3.9, Chloride 107, Carbon Dioxide 29.0, Anion Gap 5, BUN 26 H, Creatinine 0.74, Estim Creat Clear Calc 104.88, Est GFR (MDRD) Af Amer 143, Est GFR (MDRD) Non-Af 118, BUN/Creatinine Ratio 35.3 H, Glucose 115 H, Calcium 8.6 Current Medications Lactated Ringer's () 1,000 mls @ 75 mls/hr IV .[id number] ROLY Last Admin: 04/08/20 15:53 Dose: 75 mls/hr Documented by: Medical Necessity - Tobacco Use Smoking Status: Former smoker Assessment/Plan All Active Problems (Last Reviewed 02/23/20 @ 13:50 by Kathleen Infante) Seizure (Acute) Bleeding from left hip wound (Acute) MRSA (methicillin resistant Staphylococcus aureus) infection (Acute) Severe sepsis (Acute) Hematuria (Acute) Kidney calculi (Acute) Bacteremia (Acute) Pseudomonas aeruginosa infection (Acute) Nausea (Acute) Colitis (Resolved) 1. Bleeding right ischial pressure sore with extension to perineal area, Stage IV. 2. Left ischial pressure sore with extension to the femur, Stage IV, stable. 3. Paraplegia, longstanding. 4. History of MRSA. 5. History of osteomyelitis with multiple prior surgeries. 6. Smoker. I could not control the bleeding with gauze compression and silver nitrate chemical cauterization. I suspect involvement of the underlying prostate. I could not visualize the bleeding because of the undermining present. Will excise the undermining portion of the pressure sore in order to get better exposure of the bleeding in order to get hemostasis. With the undermined area unroofed, hopefully this will allow a better chance at healing. Patient was informed of the risks and complications of the procedure including alternatives to surgery. These were discussed with the patient personally. Patient voices understanding and wishes to proceed. Will proceed with the surgery under sedation. The patient would like to go home today if possible. If he needs PRBC, then he would stay the night. He voiced understanding and wishes to proceed. His preop Hgb was 13.7. He was given Unasyn perioperatively. This is an urgent case because of the uncontrolled bleeding. He won't be able to go home until the bleeding is controlled. Will send tissue to Pathology for analysis. Since there is no clinical infection present, will not obtain tissue for culture. He has a history of chronic infection in these pressure sores and has had difficulty tolerating the antibiotics. Essential Procedure Criteria Procedure Essential: Yes Criteria Note: On 12/26/2019 the [facility] ([facility]) Public Order signed by [facility] Director Magi Boyle M.D., regarding the Management of Non-Essential Surgeries and Procedures for the purpose of preserving Personal Protective Equipment (PPE) and critical hospital capacity and resources within [place] went into effect as of 12/27/2019 at 5:00PM. According to the [facility] Public Order: This action will remain in full force and effect until the State of Emergency declared by the Governor no longer exists or the Director of the [facility] rescinds or modifies this Order.. This [facility] order stated all non-essential or elective surgeries and procedures that utilize PPE should be delayed unless there is undue risk to the current or future health of a patient. After reviewing the aforementioned [facility] Public Order and the patients clinical case, I have determined that the scheduled procedure meets the criteria to go forward. Risk to Patient if Procedure Delayed: Risk of rapidly worsening to severe symptoms if delayed - patient has a bleeding right ischial pressure sore that needs operative intervention to obtain hemostasis. I could not stop the bleeding in the ED with gauze compression and silver nitrate chemical cauterization.
--- NOTE | 2020-04-08 17:23 | OP.PCM_ITS ---
Report of Operation Date of Procedure: 04/08/20 Pre-Operative Diagnosis: 1. Bleeding right ischial pressure sore with extension to perineal area, Stage IV. 2. Left ischial pressure sore with extension to the femur, Stage IV, stable. 3. Paraplegia, longstanding. 4. History of MRSA. 5. History of osteomyelitis with multiple prior surgeries. 6. Smoker. Post-Operative Diagnosis: Same. Surgery/Procedure Performed:: 1. Excision bleeding right ischial/perineal pre ssure sore, Stage IV. 2. Control of prostatic bleeding with electrocautery and Surgicel hemostat. Description of Surgical Findings:: Patient known to me. Has bilateral ischial pressure sores, Stage IV, and has been coming to the Wound Center every 1-2 months for conservative care. Today at the Wound Center the pressure sore ulcers were debrided. Some bleeding occurred on the right that could not be controlled with gauze compression and silver nitrate. He came to the ED for further evaluation. It was difficult to obtain hemostasis because the bleeding was in the undermined area. Operative excision of this bleeding right ischial/perineal pressure sore was recommended to get control of the bleeding. The undermined area would be excised to get control of the bleeding and to help with postop wound care. Preop Hgb was 13.7. Patient was informed of the risks and complications of the procedure including alternatives to surgery. These were discussed with the patient personally. Patient voices understanding and wishes to proceed. Size of defect right ischial/perineal area - 7 x 4 x 3 cm. I used Surgicel hemostat. Lot Number - [id number]. it service technician: None Type of Anesthesia:: Local MAC - xylocaine with epinephrine and IV sedation. Specimen's removed: Bleeding right ischial/perineal pressure sore, Stage IV, to Pathology. Drains: None. Estimated Blood Loss (mL): 50 ml. Description of Procedure: Patient was taken to OR in supine position and was given IV sedation. The right ischial/perineal pressure sore was prepped and draped in the usual fashion. SCD's were not placed for DVT prophylaxis since this was a short case under local anesthesia. Perioperative antibiotics were given intravenously. For the surgery, I wore an N95 mask and wore proper eye protection. The right ischial/perineal pressure sore was infiltrated with xylocaine and epinephrine. After waiting 5 minutes for the anesthetic to take effect, I excised the right ischial/perineal pressure sore in the undermined area to get better exposure to the bleeding. Multiple areas of oozing were noted. No arterial pumpers were seen. Using electrocautery and gauze compression I was able to obtain hemostasis. It was difficult because the pressure sore extends into the prostate which is very vascular. Due to the vascular nature of the prostate, after obtaining hemostasis, I placed Surgicel hemostat into the base of the wound where the prostate is present. I then placed Mepitel nonadherent dressing followed by Kerlix gauze and Betadine followed by dry Kerlix gauze and ABD pad compression dressing. No further bleeding was noted. The tissue that was excised was sent to Pathology for analysis to rule out carcinoma. There was no clinical evidence of infection so no tissue was sent to Microbiology for culture . His pressure sores are chronically infected and he has trouble tolerating antibiotics. Patient tolerated the procedure well and was sent to PACU in satisfactory condition. Patient will be sent home in stable condition. No further bleeding was seen in the [employer] area. His vital signs were stable postoperatively. Patient will change the dressing tomorrow and proceed with Silver dressing changes. If they have any concerns about the dressing change, they can come to the Wound Center tomorrow for a nurse visit for the dressing change. Grafts/Implants Used: Surgicel hemostat. - Complications None. - Admit VTE Documentation VTE Present on Admission: No VTE Mechan Device Prophylaxis: None - It was a short case under local anesthesia. VTE Pharm Prophylaxis ordered?: No Surgery Charges CPT - 10625 ICD-10 - L89.314, N42.1, G82.20, L89.324, Z86.14, Z87.39, F17.200
--- NOTE | 2020-04-08 17:29 | DCINST_ITS ---
- Discharge Diagnoses Current Active Problems: Current Active and Chronic Problems (Last Reviewed 02/23/20 @ 13:50 by Kathleen Infante) Bleeding from left hip wound (Acute) Chronic osteomyelitis, pelvis (Chronic) MRSA (methicillin resistant Staphylococcus aureus) infection (Acute) History of left below knee amputation (Chronic) Severe protein-calorie malnutrition (Chronic) Right ischial pressure sore, stage 4 (Chronic) Chronic paraplegia (Chronic) left ischial pressure sore, stage IV (Chronic) extending to the left femur You will use the following diet at home:: No restrictions, Other - encourage nutritional supplementation with protein to help the healing process. Call your doctor if your incision/area has: Continuous Slow Oozing, Sudden Increased Bleeding, Increased Redness, Foul Smelling Discharge Call your doctor if you observe: Fever of 101 or Higher Suture Line Care: - - continue silver dressing changes to bilateral ischial pressure sores daily. Cleanse incision/area with: Soap & Water - may cleanse the ulcers with soap and water at the time of the silver dressing changes. Allergies/Adverse Reactions: Allergies cephalexin monohydrate [From Keflex] Allergy (Verified 04/08/20 12:34) Itching ciprofloxacin [From Cipro] Allergy (Verified 04/08/20 12:34) Hives ciprofloxacin HCl [From Cipro] Allergy (Verified 04/08/20 12:34) Hives latex Allergy (Verified 04/08/20 12:34) Hives pt states only if indwelling catheter nitrofurantoin [From Macrobid] Allergy (Verified 04/08/20 12:34) Hives nitrofurantoin macrocrystalline [From Macrobid] Allergy (Verified 04/08/20 12:3 4) Hives Quinolones Allergy (Verified 04/08/20 12:34) Hives sulfamethoxazole Allergy (Verified 04/08/20 12:34) Hives Medications to take at Discharge Cyanocobalamin (Vitamin B-12) [Vitamin B-12] 1,000 mcg PO DAILY 04/08/20 Ferrous Sulfate 325 mg PO DAILY 04/08/20 Magnesium Oxide [Mag-Ox 400] 400 mg PO DAILY 04/08/20 Primary Care Physician: Rayo Jose MD [Primary Care Provider] - Test Results: Test results from this visit will be discussed in further detail at your follow- up appointment, if applicable. Please Follow Up With: Osvaldo Urban MD When: 2-3 weeks at wound center. call [phone] for appt. Proposed Discharge Date: 04/08/20
== END 2020-04-08 18:50 | disposition home or self-care (01) ==
LOC: ED 15:50 → SDC 15:52 → ACINP 15:53
PROVIDERS: Emergency Provider Emergency Medicine; PCP Internal Medicine; Visit Provider Surgery
PROC: (CPT 15999; principal; 2020-04-08 16:00)
DX: L89.314 Pressure ulcer of right buttock, stage 4 (principal); R58 Hemorrhage, not elsewhere classified; L89.324 Pressure ulcer of left buttock, stage 4; M86.659 Other chronic osteomyelitis, unspecified thigh; G82.20 Paraplegia, unspecified; F17.200 Nicotine dependence, unspecified, uncomplicated; Z86.14 Personal history of Methicillin resistant Staphylococcus aureus infection; Z86.19 Personal history of other infectious and parasitic diseases; Z89.512 Acquired absence of left leg below knee
CPT/HCPCS: 15999; 53899; 11043; 11046; 80048; 85027; 88305; 88311; 99282; J7030; J7120; A4216; J0295; J2405

== ENCOUNTER → 2020-04-26 12:08 | Outpatient (CLI) | payer MEDICARE, MEDICAID, SELFPAY ==
[2020-04-26 11:20] VITALS: BMI 19.5
[2020-04-26 15:02] LABS: Erythrocyte Sedimentation Rate 71 mm/hr (0-20)
[2020-04-26 15:04] LABS: Absolute Lymphocyte Count 1.31 X10^3/uL (0.83-4.51); Absolute Neutrophil Count 10.4 X10^3/uL (2.0-7.7); Basophil# 0.06 X10^3/uL; Basophil% 0.5 % (0-1); Eosinophil# 0.18 X10^3/uL; Eosinophils% 1.4 % (0-5); Hemoglobin 11.1 g/dL (13.0-16.5); Lymphocyte # 1.31 X10^3/ul (4.0); Lymphocyte % 9.8 % (19-41); Mean Corpuscular Hgb 26.7 pg (27.0-32.0); Mean Corpuscular Volume 88.9 fL (80-94); Mean Platelet Vol. 9.3 fl (6.2-12.0); Monocyte# 1.29 X10^3/uL; Monocyte% 9.7 % (0-10); NRBC Flagged by Analyzer 0 % (0-5); Neutrophil # 10.42 X10^3/uL (2.7-7.7); Neutrophil % 78.1 % (47-70); Platelet Count 692 K/mm3 (150-450); RBC Distribution Width SD 45.2 fl (35.1-43.9); Red Blood Count 4.16 M/mm3 (4.6-6.2); White Blood Count 13.3 K/mm3 (4.4-11.0)
== END ==
PROVIDERS: PCP Internal Medicine; Referring Provider Internal Medicine; Visit Provider Internal Medicine
DX: R63.0 Anorexia (principal)
CPT/HCPCS: 36415; 85025; 85652; 86140

== ENCOUNTER 2020-04-29 11:00 | Outpatient (RCR) | payer MEDICARE, MEDICAID, SELFPAY ==
[2020-04-08 16:04] VITALS: BMI 19.5
[2020-04-10 00:29] VITALS: BP 129/79; PULSE 114; RESP 20; TEMP 37.2
[2020-04-22 11:37] VITALS: BP 112/66; PULSE 118; RESP 18; TEMP 37.3; BMI 19.5
--- NOTE | 2020-04-22 15:42 | PCM.WC.PN ---
(1) left ischial pressure sore, stage IV Status: Chronic Current Visit: Yes Code(s): L89.324 - Pressure ulcer of left buttock, stage 4 Comment: extending to the left femur (2) Right ischial pressure sore, stage 4 Status: Chronic Current Visit: Yes Code(s): L89.314 - Pressure ulcer of right buttock, stage 4 (3) Chronic osteomyelitis, pelvis Status: Chronic Current Visit: Yes Qualifiers: Laterality: unspecified laterality Qualified Code(s): M86.659 - Other chronic osteomyelitis, unspecified thigh Code(s): M86.659 - Other chronic osteomyelitis, unspecified thigh (4) Prostatic hemorrhage Status: Acute Current Visit: Yes Code(s): N42.1 - Congestion and hemorrhage of prostate (5) History of left below knee amputation Status: Chronic Current Visit: Yes Code(s): Z89.512 - Acquired absence of left leg below knee (6) Severe protein-calorie malnutrition Status: Chronic Current Visit: Yes Code(s): E43 - Unspecified severe protein-calorie malnutrition (7) Chronic paraplegia Status: Chronic Current Visit: Yes Code(s): G82.20 - Paraplegia, unspecified (8) History of osteomyelitis Status: Chronic Current Visit: Yes Code(s): Z87.39 - Personal history of other diseases of the musculoskeletal system and connective tissue (9) History of MRSA infection Status: Chronic Current Visit: Yes Code(s): Z86.14 - Personal history of Methicillin resistant Staphylococcus aureus infection Type of Wound Date of Service: 04/22/20 Chief Complaint: Bilateral ischial pressure sores, Stage IV. History of Wound: Patient has long standing bilateral ischial pressure sores, Stage IV, with the left side extending to the femoral head and the right side extending to the perineal area and the prostate. Surgery would entail quite extensive excision with amputations at a tertiary center. Patient does not want to pursue any heroic surgeries at this time since it is not a guarantee his pressure issues won't recur. With aggressive amputations, his already tenuous balance would be even more disrupted. Today he denies any fever. His appetite is ok. At the present time, we are providing conservative care on a monthly basis. He had a wound culture on 05/15/19 which showed MRSA, Proteus mirabilis, Klebsiella oxytoca, Pseudomonas aeroginosa, Bacteroides fragilis, and Anaerobic cocci. He was treated with Doxycycline and Augmentin as well as Acetic Acid dressing changes. The Acetic Acid dressing changes were thern changed to Silver dressing changes. He was recently hospitalized in July for urinary infection. He was discharged on Meropenem. He states his right leg gets in the way when transferring. He is interested in proceeding with a BKA. Preop cultures were done on 10/23/19. The left ischial ulcer showed Morganella morganii, Proteus mirabilis, E. coli, MRSA, Streptococcus Group F, Corynebacterium minutissimum, and Bacteroides fragilis. The right ischial ulcer showed Providencia rettgeri, Proteus mirabilis, MRSA, Kocuria kristinae, Corynebacterium minutissimum, and Bacteroides fragilis. He was started on Augmentin and Doxycycline. The surgery was scheduled for 11/07/19. It was cancelled due to a seizure. He was started on IV Meropenem and it was thought the medication was responsible. He was started on Keppra. The workup was negative. Surgery was cancelled for now until he is seen by Neurology. The patient states the Neurologist had ordered several tests. But everything looks like it was related to the antibiotics. On his visit to the wound center on 04/08/20 he developed bleeding from his tunneled area on his right ischial ulcer that we were unable to get to stop bleeding. He was sent to the ED that day and ended requiring surgery to get the bleed to stop. Surgery on 04/08/29 - 1. Excision bleeding right ischial/perineal pressure sore, Stage IV. 2. Control of prostatic bleeding with electrocautery and Surgicel hemostat. He has not been having issues with the bleeding. Today he has concern about increased drainage and odor from his right ischial ulcer. Wound culture obtained today, 04/22/20. Depending on the results of the wound culture it may necessitate the need for antibiotics. Today he denies any fever. He states his appetite is ok. Progress of Wound: Stable - Physical Exam Vital Signs Temp Pulse Resp BP 99.1 F 118 H 18 112/66 04/22/20 11:37 04/22/20 11:37 04/22/20 11:37 04/22/20 11:37 General: Alert, Oriented x3, Cooperative HEENT: Atraumatic Lungs: Normal air movement Cardiovascular: Regular rate Extremities: Capillary Refill Less than 3 Seconds Skin: Ulcer/ Wound - Left ischial ulcer and right ischial ulcer with tunneled area. No significant amount of drainage from either ulcer. Wound Measurements and Assessment WC - Nurse 1 - General Ulcer Measurement Start: 04/22/20 11:37 Freq: Status: Active Protocol: Activity Type Activity Date Activity User E-Sign Co-Sign Detail Recorded Client Recorded Date Recorded By Document 04/22/20 11:37 DL [id number] 04/22/20 11:51 DL 04/22/20 11:37 Wound Center Nurse 1 [Ulcer Assessment] #8 L Ischium -Current Size (cm) - Length 5.7 -Current Size (cm) - Width 6.6 -Current Size (cm) - Depth 0.5 -Total Square Cm 37.62 -Photo Taken No -Exudate Amt Small -Exudate Type Serosanguineous -Wound Margin Thickened & Rolled Under -Granulation Amt Medium (34-66%) -Granulation Quality [place] -Necrosis Amt Medium (34-66%) -Necrotic Tissue Type Adherent Slough -Structure Exposed Bone -Texture (Steffi-wound Skin Appearance) Scarring -Moisture (Steffi-wound Skin Appearance Maceration ) -Color (Steffi-wound Skin Appearance) No Abnormality -Temperature (Steffi-wound Skin No Abnormality Appearance) (Pt Warm) -Tenderness on Palpation (Steffi-wound No Skin Appearance) -Ulcer Cleansing Wound Cleanser -Foul Odor after Cleansing No -Anesthetic Used 4% Lidocaine Solution #7 R Ischium -Current Size (cm) - Length 8 -Current Size (cm) - Width 4 -Current Size (cm) - Depth 1.5 -Total Square Cm 32 -Photo Taken No -Undermining/Tunneling Starts (O' 12 clock) -Undermining/Tunneling Ends (O'clock) 1 -Maximum Distance (cm) 4 -Exudate Amt Small -Exudate Type Serosanguineous -Wound Margin Thickened & Rolled Under -Granulation Amt Medium (34-66%) -Granulation Quality Pale,[place] -Necrosis Amt Medium (34-66%) -Necrotic Tissue Type Adherent Slough -Structure Exposed N/A -Texture (Steffi-wound Skin Appearance) Scarring -Moisture (Steffi-wound Skin Appearance No Abnormality ) -Color (Steffi-wound Skin Appearance) No Abnormality -Temperature (Steffi-wound Skin No Abnormality Appearance) (Pt Warm) -Tenderness on Palpation (Steffi-wound No Skin Appearance) -Ulcer Cleansing Wound Cleanser -Foul Odor after Cleansing No -Anesthetic Used 4% Lidocaine Solution NIKA - Nurse 2 - General Ulcer CM Notes Start: 04/22/20 11:37 Freq: Status: Active Protocol: Activity Type Activity Date Activity User E-Sign Co-Sign Detail Recorded Client Recorded Date Recorded By Document 04/22/20 12:09 DEBORAH [id number] 04/22/20 12:20 DEBORAH 04/22/20 12:09 Wound Center Nurse 2 [Procedure/Treatment] #8 L Ischium -Time 12:10 -Correct Patient Yes -Correct Side, Site, Position Yes -Correct Procedure Yes -Procedure Performed Yes -Type of Procedure Debridement -Clinical Debridement Muscle -Post Debridement Size (cm) - Length 7.0 -Post Debridement Size (cm) - Width 6.5 -Post Debridement Size (cm) - Depth 0.8 -Total Square Cm 45.50 -Wound/Ulcer Outcome Not Healed -Ulcer Cleansing Rinsed/ Irrigated with Saline -Foul Odor after Cleansing No -Bioengineered Tissue No -Bleeding Controlled with Pressure -Offloading No -Treatment Response Procedure Tolerated Well #7 R Ischium -Time 12:10 -Correct Patient Yes -Correct Side, Site, Position Yes -Correct Procedure Yes -Procedure Performed Yes -Type of Procedure Debridement -Clinical Debridement Muscle -Post Debridement Size (cm) - Length 6.5 -Post Debridement Size (cm) - Width 4.5 -Post Debridement Size (cm) - Depth 7.2 -Total Square Cm 29.25 -Wound/Ulcer Outcome Not Healed -Ulcer Cleansing Rinsed/ Irrigated with Saline -Foul Odor after Cleansing No -Bioengineered Tissue No -Bleeding Controlled with Pressure -Offloading No -Treatment Response Procedure Tolerated Well [See Physician Procedure note for Specifics] Pain Scale: 0-10 Numeric [Pain] -Is Patient Pain Free? Yes Musculoskeletal: No Tenderness to Palpation of Joints or Extremities Neurological: Cranial nerves II-XII grossly intact Psych/Mental Status: Normal Affect, Appropriate Debridement Note Post-Debridement Measurements/Treatment WC - Nurse 2 - General Ulcer CM Notes Start: 04/22/20 11:37 Freq: Status: Active Protocol: Activity Type Activity Date Activity User E-Sign Co-Sign Detail Recorded Client Recorded Date Recorded By Document 04/22/20 12:09 DEBORAH [id number] 04/22/20 12:20 DEBORAH 04/22/20 12:09 Wound Center Nurse 2 #8 L Ischium -Time 12:10 -Correct Patient Yes -Correct Side, Site, Position Yes -Correct Procedure Yes -Procedure Performed Yes -Type of Procedure Debridement -Clinical Debridement Muscle -Post Debridement Size (cm) - Length 7.0 -Post Debridement Size (cm) - Width 6.5 -Post Debridement Size (cm) - Depth 0.8 -Total Square Cm 45.50 -Wound/Ulcer Outcome Not Healed -Ulcer Cleansing Rinsed/ Irrigated with Saline -Foul Odor after Cleansing No -Bioengineered Tissue No -Bleeding Controlled with Pressure -Offloading No -Treatment Response Procedure Tolerated Well #7 R Ischium -Time 12:10 -Correct Patient Yes -Correct Side, Site, Position Yes -Correct Procedure Yes -Procedure Performed Yes -Type of Procedure Debridement -Clinical Debridement Muscle -Post Debridement Size (cm) - Length 6.5 -Post Debridement Size (cm) - Width 4.5 -Post Debridement Size (cm) - Depth 7.2 -Total Square Cm 29.25 -Wound/Ulcer Outcome Not Healed -Ulcer Cleansing Rinsed/ Irrigated with Saline -Foul Odor after Cleansing No -Bioengineered Tissue No -Bleeding Controlled with Pressure -Offloading No -Treatment Response Procedure Tolerated Well Pain Scale: 0-10 Numeric Is Patient Pain Free? Yes Wound debrided: ischial ulcer Laterality: Left Type of Debridement: Excisional debridement Anesthesia Used: 4% Lidocaine Solution Depth: Down to and including healthy tissue, in the subcutaneous layer, to muscle Percentage of wound debrided: 100 Instrument Used: 7mm curette Tissue Removed: Subcutaneous tissue and slough into the muscle Severity: Fat Layer Exposed Amount of bleeding with debridement: Mild Bleeding Controlled with: Pressure Patient tolerated procedure well - Additional Wound Wound debrided: Right ischial ulcer and tunneling Laterality: Right Type of Debridement: Excisional debridement Anesthesia Used: 4% Lidocaine Solution Depth: Down to and including healthy tissue, in the subcutaneous layer, to muscle Percentage of wound debrided: 100 Instrument Used: 7mm curette Tissue Removed: Subcutaneous tissue and slough into the muscle Severity: Fat Layer Exposed - Ulcer not to get aggressively debrided in the tunnel area Amount of bleeding with debridement: Mild Bleeding Controlled with: Pressure, Compression and gauze Patient tolerated procedure: Patient tolerated procedure well Assessment/Plan Active Problems (Last Reviewed 02/23/20 @ 13:50 by Kathleen Infante) Prostatic hemorrhage (Acute) Chronic osteomyelitis, pelvis (Chronic) History of left below knee amputation (Chronic) Severe protein-calorie malnutrition (Chronic) Right ischial pressure sore, stage 4 (Chronic) Chronic paraplegia (Chronic) History of osteomyelitis (Chronic) History of MRSA infection (Chronic) left ischial pressure sore, stage IV (Chronic) extending to the left femur Assessment: 1. Right ischial pressure sore with extension to perineal area, Stage IV. 2. Left ischial pressure sore with extension to the femur, Stage IV. 3. Paraplegia, longstanding. 4. History of MRSA. 5. History of osteomyelitis with multiple prior surgeries. 6. Smoker. 7. Recent seizure, stable, possible medication related. Plan: Wound Care - Continue Silver dressing changes daily to both ischial pressure sores. He is washing the ulcer with Dakin's solution at every dressing change. Surgery on 04/08/29 - 1. Excision bleeding right ischial/perineal pressure sore, Stage IV. 2. Control of prostatic bleeding with electrocautery and Surgicel hemostat. He has not been having issues with the bleeding. Today he has concern about increased drainage and odor from his right ischial ulcer. Wound culture obtained today, 04/22/20. Depending on the results of the wound culture it may necessitate the need for antibiotics. He was interested in proceeding with a BKA because he is having difficulty with transfer. He states the leg gets in the way. It was scheduled November 07, 2019. Preop cultures were done on 10/23/19. The left ischial ulcer showed Morganella morganii, Proteus mirabilis, E. coli, MRSA, Streptococcus Group F, Corynebacterium minutissimum, and Bacteroides fragilis. The right ischial ulcer showed Providencia rettgeri, Proteus mirabilis, MRSA, Kocuria kristinae, Corynebacterium minutissimum, and Bacteroides fragilis. He was started on Augmentin and Doxycycline. The surgery which was scheduled for 11/07/19 was cancelled due to a seizure. He was started on IV Meropenem and it was thought the medication was responsible. He was started on Keppra. The workup was negative. Surgery was cancelled for now,he is seen by Neurology. They believe it was an interaction with some of his antibiotics. Encourage nutritional supplementation with protein to help the healing process. Encouraged the patient to stop smoking as it may have deleterious effects on wound healing. Followup 1 week for follow up with Dr. Urban. [id number]: [id number] Global Visit
[2020-04-29 11:03] VITALS: BP 128/73; PULSE 99; RESP 16; TEMP 36.9; BMI 19.5
--- NOTE | 2020-04-29 15:23 | PCM.PN.ID ---
Patient Problems: Active and Suspected Problems (Last Reviewed 04/26/20 @ 11:12 by Meagan Rhoades) Prostatic hemorrhage (Acute) Subjective: Feeling ok. No fever. Does get intermittent sweats recently. No recent abx. - Physical Exam Vitals/I&O's: Vital Signs Temp Pulse Resp BP 98.4 F 99 16 128/73 H 04/29/20 11:03 04/29/20 11:03 04/29/20 11:03 04/29/20 11:03 Oxygen Delivery Method Room Air Body Mass Index (BMI) 19.5 General: Alert, Cooperative, No apparent distress Lungs: Clear to auscultation, Normal air movement Cardiovascular: Regular rate, Regular Rhythm Abdomen: Soft, Non Tender, Non-Distended Skin: Ulcer/ Wound - L ischium and sacrum no redness or necrosis. Microbiology Past 72 Hours 04/22/20 12:15 Wound Abcess - Ischium Gram Stain - Final 04/22/20 12:15 Wound Abcess - Ischium Wound Culture - Final Morganella morganii sp sibonii Pseudomonas aeroginosa Streptococcus group F Corynebacterium species 04/22/20 12:15 Wound Abcess - Ischium Anaerobic Culture - Final Bacteroides fragilis Medical Necessity - Tobacco Use Smoking Status: Former smoker Route of nutrition/ use of supplements: [] Nutritional Intake: [] IV Site: [] Payne Catheter: [] - Assessment/Plan Antibiotics: [] Assessment/Plan: [] Active and Suspected Problems (Last Reviewed 04/26/20 @ 11:12 by Meagan Rhoades) Prostatic hemorrhage (Acute) Infected ulcer - relatively stable off of abx. Wbc better since last check. Recent wound cx again with polymicrobial growth. Discussed with pt and Dr. Urban. At this point, agree with continuing to monitor off of abx; managing wound colonization with topical care. If he does worsen, plan will be for picc and iv abx. Will follow as needed
--- NOTE | 2020-04-29 16:31 | PCM.WC.PN ---
Type of Wound Date of Service: 04/29/20 Chief Complaint: Bilateral ischial pressure sores, Stage IV. History of Wound: Surgery 04/08/20 - 1. Excision bleeding right ischial/perineal pressure sore, Stage IV. 2. Control of prostatic bleeding with electrocautery and Surgicel hemostat. Wound Care - Dakin's dressing changes alternated with Silver dressing changes. Patient has long standing bilateral ischial pressure sores, Stage IV, with the left side extending to the femoral head and the right side extending to the perineal area and the prostate. Surgery would entail quite extensive excision with amputations at a tertiary center. Patient does not want to pursue any heroic surgeries at this time since it is not a guarantee his pressure issues won't recur. With aggressive amputations, his already tenuous balance would be even more disrupted. Today he denies any fever. His appetite is ok. At the present time, we are providing conservative care on a monthly basis. He states his right leg gets in the way when transferring. He was interested in proceeding with a BKA. At the time of surgery he had a seizure and the surgery was postponed. It was felt the seizure was medication related. He will let us know when he wants to reschedule it. There was increased drainage from the right ischial pressure sore after the recent surgery. Wound culture was done on 04/22/20. It showed Morganella morganii, Pseudomonas aeroginosa, Streptococcus group F, and Bacteroides fragilis. He has a lot of antibiotic allergies. His only real option is IV antibiotics. Dr. Chester also saw him today at the [facility] for evaluation. At the time of the surgery on 04/08/20 his WBC was 17.5. Repeat WBC on 04/26/20 improved to 13.3. Today he denies any fever. He states his appetite is ok. Progress of Wound: Stable. - Physical Exam Vital Signs Temp Pulse Resp BP 98.4 F 99 16 128/73 H 04/29/20 11:03 04/29/20 11:03 04/29/20 11:03 04/29/20 11:03 Wound Measurements and Assessment WC - Nurse 1 - General Ulcer Measurement Start: 04/22/20 11:37 Freq: Status: Active Protocol: Activity Type Activity Date Activity User E-Sign Co-Sign Detail Recorded Client Recorded Date Recorded By Document 04/29/20 11:03 [facility] [id number] 04/29/20 11:14 [facility] 04/29/20 11:03 [facility] Center Nurse 1 [Ulcer Assessment] #8 L Ischium -Combined with other wound No -Current Size (cm) - Length 6.3 -Current Size (cm) - Width 6.6 -Current Size (cm) - Depth 0.6 -Total Square Cm 41.58 -Photo Taken No -Epithelialization None Present -Tunneling No -Undermining/Tunneling No -Circular Undermining No -Exudate Amt Small -Exudate Type Serosanguineous -Wound Margin Thickened & Rolled Under -Granulation Amt Medium (34-66%) -Granulation Quality Pale,Odem -Slough/Fibrin Yes -Necrosis Amt Small (1-33%) -Necrotic Tissue Type Adherent Slough -Texture (Steffi-wound Skin Appearance) Assessed, Scarring -Moisture (Steffi-wound Skin Appearance Assessed ) -Color (Steffi-wound Skin Appearance) Assessed -Temperature (Steffi-wound Skin No Abnormality Appearance) (Pt Warm) -Tenderness on Palpation (Steffi-wound No Skin Appearance) -Ulcer Cleansing Rinsed/ Irrigated with Saline -Foul Odor after Cleansing No #7 R Ischium -Combined with other wound No -Current Size (cm) - Length 7.2 -Current Size (cm) - Width 3.5 -Current Size (cm) - Depth 2.1 -Total Square Cm 25.20 -Photo Taken No -Epithelialization None Present -Tunneling No -Undermining/Tunneling No -Circular Undermining No -Wound Margin Thickened & Rolled Under -Granulation Amt Medium (34-66%) -Granulation Quality Pale,Odem -Slough/Fibrin Yes -Necrosis Amt Medium (34-66%) -Necrotic Tissue Type Adherent Slough -Texture (Steffi-wound Skin Appearance) Assessed, Scarring -Moisture (Steffi-wound Skin Appearance Assessed ) -Color (Steffi-wound Skin Appearance) Assessed -Temperature (Steffi-wound Skin No Abnormality Appearance) (Pt Warm) -Tenderness on Palpation (Steffi-wound No Skin Appearance) -Ulcer Cleansing Rinsed/ Irrigated with Saline -Foul Odor after Cleansing No WC - Nurse 2 - General Ulcer CM Notes Start: 04/22/20 11:37 Freq: Status: Active Protocol: Activity Type Activity Date Activity User E-Sign Co-Sign Detail Recorded Client Recorded Date Recorded By Document 04/29/20 11:28 [id number] 04/29/20 11:32 04/29/20 11:28 Wound Center Nurse 2 [Procedure/Treatment] #8 L Ischium -Time 11:28 -Correct Patient Yes -Correct Side, Site, Position Yes -Correct Procedure Yes -Procedure Performed Yes -Type of Procedure Debridement -Clinical Debridement Muscle -Post Debridement Size (cm) - Length 6.3 -Post Debridement Size (cm) - Width 6.7 -Post Debridement Size (cm) - Depth 0.6 -Total Square Cm 42.21 -Wound/Ulcer Outcome Not Healed -Ulcer Cleansing Rinsed/ Irrigated with Saline -Foul Odor after Cleansing No -Bioengineered Tissue No -Bleeding Controlled with Pressure -Offloading No -Treatment Response Procedure Tolerated Well #7 R Ischium -Time 11:29 -Correct Patient Yes -Correct Side, Site, Position Yes -Correct Procedure Yes -Procedure Performed Yes -Type of Procedure Debridement -Clinical Debridement Muscle -Post Debridement Size (cm) - Length 7.2 -Post Debridement Size (cm) - Width 3.6 -Post Debridement Size (cm) - Depth 2.2 -Total Square Cm 25.92 -Wound/Ulcer Outcome Not Healed -Ulcer Cleansing Rinsed/ Irrigated with Saline -Foul Odor after Cleansing No -Bioengineered Tissue No -Bleeding Controlled with Pressure -Offloading No -Treatment Response Procedure Tolerated Well [See Physician Procedure note for Specifics] Pain Scale: 0-10 Numeric [Pain] -Is Patient Pain Free? Yes Debridement Note Post-Debridement Measurements/Treatment WC - Nurse 2 - General Ulcer CM Notes Start: 04/22/20 11:37 Freq: Status: Active Protocol: Activity Type Activity Date Activity User E-Sign Co-Sign Detail Recorded Client Recorded Date Recorded By Document 04/22/20 12:09 [id number] 04/22/20 12:20 Document 04/29/20 11:28 [id number] 04/29/20 11:32 04/22/20 04/29/20 12:09 11:28 Wound Center Nurse 2 #8 L Ischium -Time 12:10 11:28 -Correct Patient Yes Yes -Correct Side, Site, Position Yes Yes -Correct Procedure Yes Yes -Procedure Performed Yes Yes -Type of Procedure Debridement Debridement -Clinical Debridement Muscle Muscle -Post Debridement Size (cm) - Length 7.0 6.3 -Post Debridement Size (cm) - Width 6.5 6.7 -Post Debridement Size (cm) - Depth 0.8 0.6 -Total Square Cm 45.50 42.21 -Wound/Ulcer Outcome Not Healed Not Healed -Ulcer Cleansing Rinsed/ Rinsed/ Irrigated with Irrigated with Saline Saline -Foul Odor after Cleansing No No -Bioengineered Tissue No No -Bleeding Controlled with Pressure Pressure -Offloading No No -Treatment Response Procedure Procedure Tolerated Well Tolerated Well #7 R Ischium -Time 12:10 11:29 -Correct Patient Yes Yes -Correct Side, Site, Position Yes Yes -Correct Procedure Yes Yes -Procedure Performed Yes Yes -Type of Procedure Debridement Debridement -Clinical Debridement Muscle Muscle -Post Debridement Size (cm) - Length 6.5 7.2 -Post Debridement Size (cm) - Width 4.5 3.6 -Post Debridement Size (cm) - Depth 7.2 2.2 -Total Square Cm 29.25 25.92 -Wound/Ulcer Outcome Not Healed Not Healed -Ulcer Cleansing Rinsed/ Rinsed/ Irrigated with Irrigated with Saline Saline -Foul Odor after Cleansing No No -Bioengineered Tissue No No -Bleeding Controlled with Pressure Pressure -Offloading No No -Treatment Response Procedure Procedure Tolerated Well Tolerated Well Pain Scale: 0-10 Numeric Is Patient Pain Free? Yes Yes Wound debrided: #7 Right ischial area. Laterality: Right Wound Grade/Stage: IV. Type of Debridement: Excisional debridement Anesthesia Used: 4% Lidocaine Solution Depth: Down to and including healthy tissue, in the subcutaneous layer, to muscle, to bone - bone is palpable but not debrided. Percentage of wound debrided: 100 Instrument Used: 5mm curette Tissue Removed: subcutaneous tissue and muscle. Severity: Fat Layer Exposed - muscle is exposed. bone is palpable but not debrided. Amount of bleeding with debridement: Mild Bleeding Controlled with: Pressure Patient tolerated procedure well - Additional Wound Wound debrided: #8 Left ischial area. Laterality: Left Wound Grade/Stage: IV. Type of Debridement: Excisional debridement Anesthesia Used: 4% Lidocaine Solution Depth: Down to and including healthy tissue, in the subcutaneous layer, to muscle, to bone - bone is palpable but not debrided. Percentage of wound debrided: 100 Instrument Used: 5mm curette Tissue Removed: subcutaneous tissue and muscle. Severity: Fat Layer Exposed - muscle is exposed. bone is palpable but not debrided. Amount of bleeding with debridement: Mild Bleeding Controlled with: Pressure Patient tolerated procedure: Patient tolerated procedure well Assessment/Plan Assessment: 1. Right ischial pressure sore with extension to perineal area, Stage IV. 2. Left ischial pressure sore with extension to the femur, Stage IV. 3. Paraplegia, longstanding. 4. History of MRSA. 5. History of osteomyelitis with multiple prior surgeries. 6. Smoker. 7. Recent seizure, stable, possible medication related. Plan: His pressure sore ulcers are stable. The positive cultures probably colonized and not invasive. Recent WBC is trending downward. He is afebrile. There is not enough of a reason at this time to proceed with IV antibiotics. Discussed with Dr. Chester from Infectious Diseases. If the situation were to worsen, then would proceed with IV antibitiotics through a PICC line. At the present time, the culture showed Morganella morganii, Pseudomonas aeroginosa, Streptococcus group F, and Bacteroides fragilis. He will continue Dakin's dressing changes alternating with Silver dressing changes. . He was interested in proceeding with a BKA because he is having difficulty with transfer. He states the leg gets in the way. The surgery which was scheduled for 11/07/19 was cancelled due to a seizure. He was started on IV Meropenem and it was thought the medication was responsible. He was started on Keppra. The workup was negative. Surgery was cancelled for now as he was seen by Neurology. He will let us know when he wants to proceed with the amputation. Encourage nutritional supplementation with protein to help the healing process. Encouraged the patient to stop smoking as it may have deleterious effects on wound healing. Followup 3 weeks. [id number]: [id number] Global Visit - ICD-10 - Z48.89, L89.314, N42.1, G82.20, L89.324, Z86.14, Z87.39, F17.200
== END 2020-05-10 23:59 ==
LOC: WC 11:00
PROVIDERS: PCP Internal Medicine; Visit Provider Nurse Practitioner Family
DX: L89.324 Pressure ulcer of left buttock, stage 4 (principal); L89.314 Pressure ulcer of right buttock, stage 4; M86.659 Other chronic osteomyelitis, unspecified thigh; N42.1 Congestion and hemorrhage of prostate; Z89.512 Acquired absence of left leg below knee; G82.20 Paraplegia, unspecified; Z86.14 Personal history of Methicillin resistant Staphylococcus aureus infection; F17.200 Nicotine dependence, unspecified, uncomplicated
CPT/HCPCS: 11043; 11046; 87070; 87075; 87076; 87077; 87186; 87205

== ENCOUNTER 2020-05-27 11:23 | Outpatient (RCR) | payer MEDICARE, MEDICAID, SELFPAY ==
[2020-05-11 00:28] VITALS: BP 128/73; PULSE 99; RESP 16; TEMP 36.9
[2020-05-27 11:39] VITALS: BP 135/72; PULSE 98; RESP 18; TEMP 36.6; BMI 19.5
--- NOTE | 2020-05-27 16:48 | PN.PCM_ITS ---
Type of Wound Date of Service: 05/27/20 Chief Complaint: Bilateral ischial pressure sores, Stage IV. History of Wound: Surgery 04/08/20 - 1. Excision bleeding right ischial/perineal pressure sore, Stage IV. 2. Control of prostatic bleeding with electrocautery and Surgicel hemostat. Wound Care - Dakin's dressing changes alternated with Silver dressing changes. Patient has long standing bilateral ischial pressure sores, Stage IV, with the left side extending to the femoral head and the right side extending to the perineal area and the prostate. Surgery would entail quite extensive excision with amputations at a tertiary center. Patient does not want to pursue any heroic surgeries at this time since it is not a guarantee his pressure issues won't recur. With aggressive amputations, his already tenuous balance would be even more disrupted. Today he denies any fever. His appetite is ok. At the present time, we are providing conservative care on a monthly basis. He states his right leg gets in the way when transferring. He was interested in proceeding with a BKA. At the time of surgery he had a seizure and the surgery was postponed. It was felt the seizure was medication related. He will let us know when he wants to reschedule it. Wound culture was done on 04/22/20. It showed Morganella morganii, Pseudomonas aeroginosa, Streptococcus group F, and Bacteroides fragilis. He has a lot of antibiotic allergies. His only real option is IV antibiotics. Dr. Chester also saw him at the Wound Center and felt the wounds were colonized and held off on antibiotics at this time. If his clinical situation were to change, then would re-evaluate him for IV antibiotics at that time. Today he denies any fever. He states his appetite is ok. Progress of Wound: Improved. - Physical Exam Vital Signs Temp Pulse Resp BP 97.8 F 98 18 135/72 H 05/27/20 11:39 05/27/20 11:39 05/27/20 11:39 05/27/20 11:39 Wound Measurements and Assessment WC - Nurse 1 - General Ulcer Measurement Start: 05/27/20 11:38 Freq: Status: Active Protocol: Activity Type Activity Date Activity User E-Sign Co-Sign Detail Recorded Client Recorded Date Recorded By Document 05/27/20 11:39 PL [id number] 05/27/20 11:53 PL 05/27/20 11:39 Wound Center Nurse 1 [Ulcer Assessment] #8 L Ischium -Combined with other wound No -Current Size (cm) - Length 7 -Current Size (cm) - Width 6.5 -Current Size (cm) - Depth 0.8 -Total Square Cm 45.5 -Undermining/Tunneling Yes -Undermining/Tunneling Starts (O' 12 clock) -Undermining/Tunneling Ends (O'clock) 12 -Maximum Distance (cm) 1.5 -Circular Undermining Yes -Exudate Amt Large -Exudate Type Serosanguineous -Granulation Amt Small (1-33%) -Granulation Quality [employer] -Slough/Fibrin Yes -Necrosis Amt Large (67-100%) -Necrotic Tissue Type Adherent Slough -Structure Exposed Fascia,Muscle, Bone -Texture (Steffi-wound Skin Appearance) No Abnormality -Moisture (Steffi-wound Skin Appearance No Abnormality ) -Color (Steffi-wound Skin Appearance) Erythema -Temperature (Steffi-wound Skin No Abnormality Appearance) (Pt Warm) #7 R Ischium -Combined with other wound No -Current Size (cm) - Length 5.5 -Current Size (cm) - Width 3.5 -Current Size (cm) - Depth 1.5 -Total Square Cm 19.25 -Photo Taken No -Epithelialization None Present -Tunneling Yes -Tunneling Position (O'clock) 1 -Tunneling Distance (cm) 3.5 -Undermining/Tunneling No -Exudate Amt Large -Exudate Type Serosanguineous -Granulation Amt Medium (34-66%) -Granulation Quality [employer] -Necrosis Amt Medium (34-66%) -Necrotic Tissue Type Adherent Slough -Color (Steffi-wound Skin Appearance) Erythema WC - Nurse 2 - General Ulcer CM Notes Start: 05/27/20 11:38 Freq: Status: Active Protocol: Activity Type Activity Date Activity User E-Sign Co-Sign Detail Recorded Client Recorded Date Recorded By Document 05/27/20 12:09 DEBORAH [id number] 05/27/20 12:16 DEBORAH 05/27/20 12:09 Wound Center Nurse 2 [Procedure/Treatment] #8 L Ischium -Time 12:12 -Correct Patient Yes -Correct Side, Site, Position Yes -Correct Procedure Yes -Procedure Performed Yes -Type of Procedure Debridement -Clinical Debridement Muscle / Fascia -Tissue Removed Subcutaneous -Post Debridement (cm) - Length 6.7 -Post Debridement (cm) - Width 6.5 -Post Debridement (cm) - Depth 1.0 -Total Square (Post) (cm) 43.55 -Area of Debridement (cm) - Length 6.7 -Area of Debridement (cm) - Width 6.5 -Total Square (Area) (cm) 43.55 -Tunneling No -Undermining/Tunneling No -Circular Undermining No -Wound/Ulcer Outcome Not Healed -Ulcer Cleansing Rinsed/ Irrigated with Saline -Foul Odor after Cleansing No -Bioengineered Tissue No -Bleeding Controlled with Pressure -Offloading No -Debridement - Muscle / Fascia, 1st Yes 20sq cm -Debridement, Muscle/Fascia, ea addt' 2 l 20sq cm or part thereof #7 R Ischium -Time 12:14 -Correct Patient Yes -Correct Side, Site, Position Yes -Correct Procedure Yes -Procedure Performed Yes -Type of Procedure Debridement -Clinical Debridement Muscle / Fascia -Tissue Removed Muscle -Post Debridement (cm) - Length 6.5 -Post Debridement (cm) - Width 2.8 -Post Debridement (cm) - Depth 2.5 -Total Square (Post) (cm) 18.20 -Area of Debridement (cm) - Length 6.5 -Area of Debridement (cm) - Width 2.8 -Total Square (Area) (cm) 18.20 -Tunneling No -Undermining/Tunneling No -Circular Undermining No -Ulcer Cleansing Rinsed/ Irrigated with Saline -Foul Odor after Cleansing No -Bioengineered Tissue No -Bleeding Controlled with Pressure -Offloading No -Treatment Response Procedure Tolerated Well -Debridement - Muscle / Fascia, 1st Yes 20sq cm [See Physician Procedure note for Specifics] Pain Scale: 0-10 Numeric [Pain] -Is Patient Pain Free? Yes Debridement Note Post-Debridement Measurements/Treatment WC - Nurse 2 - General Ulcer CM Notes Start: 05/27/20 11:38 Freq: Status: Active Protocol: Activity Type Activity Date Activity User E-Sign Co-Sign Detail Recorded Client Recorded Date Recorded By Document 05/27/20 12:09 DEBORAH [id number] 05/27/20 12:16 DEBORAH 05/27/20 12:09 Wound Center Nurse 2 #8 L Ischium -Time 12:12 -Correct Patient Yes -Correct Side, Site, Position Yes -Correct Procedure Yes -Procedure Performed Yes -Type of Procedure Debridement -Clinical Debridement Muscle / Fascia -Tissue Removed Muscle -Post Debridement (cm) - Length 6.7 -Post Debridement (cm) - Width 6.5 -Post Debridement (cm) - Depth 1.0 -Total Square (Post) (cm) 43.55 -Area of Debridement (cm) - Length 6.7 -Area of Debridement (cm) - Width 6.5 -Total Square (Area) (cm) 43.55 -Tunneling No -Undermining/Tunneling No -Circular Undermining No -Wound/Ulcer Outcome Not Healed -Ulcer Cleansing Rinsed/ Irrigated with Saline -Foul Odor after Cleansing No -Bioengineered Tissue No -Bleeding Controlled with Pressure -Offloading No -Debridement - Muscle / Fascia, 1st Yes 20sq cm -Debridement, Muscle/Fascia, ea addt'l 2 20sq cm or part thereof #7 R Ischium -Time 12:14 -Correct Patient Yes -Correct Side, Site, Position Yes -Correct Procedure Yes -Procedure Performed Yes -Type of Procedure Debridement -Clinical Debridement Muscle / Fascia -Tissue Removed Muscle -Post Debridement (cm) - Length 6.5 -Post Debridement (cm) - Width 2.8 -Post Debridement (cm) - Depth 2.5 -Total Square (Post) (cm) 18.20 -Area of Debridement (cm) - Length 6.5 -Area of Debridement (cm) - Width 2.8 -Total Square (Area) (cm) 18.20 -Tunneling No -Undermining/Tunneling No -Circular Undermining No -Ulcer Cleansing Rinsed/ Irrigated with Saline -Foul Odor after Cleansing No -Bioengineered Tissue No -Bleeding Controlled with Pressure -Offloading No -Treatment Response Procedure Tolerated Well -Debridement - Muscle / Fascia, 1st Yes 20sq cm Pain Scale: 0-10 Numeric Is Patient Pain Free? Yes Wound debrided: #7 Right ischial area. Laterality: Right Wound Grade/Stage: IV. Type of Debridement: Excisional debridement Anesthesia Used: 4% Lidocaine Solution Depth: Down to and including healthy tissue, in the subcutaneous layer, to muscle, to bone - bone is palpable but not debrided. Percentage of wound debrided: 100 Instrument Used: 7mm curette Tissue Removed: subcutaneous tissue and muscle. Severity: Fat Layer Exposed - muscle is exposed. bone is palpable but not debrided. Amount of bleeding with debridement: Mild Bleeding Controlled with: Pressure Patient tolerated procedure well - Additional Wound Wound debrided: #8 Left ischial area. Laterality: Left Wound Grade/Stage: IV. Type of Debridement: Excisional debridement Anesthesia Used: 4% Lidocaine Solution Depth: Down to and including healthy tissue, in the subcutaneous layer, to muscle, to bone - bone is palpable but not debrided. Percentage of wound debrided: 100 Instrument Used: 7mm curette Tissue Removed: subcutaneous tissue and muscle. Severity: Fat Layer Exposed - muscle is exposed. bone is palpable but not debrided. Amount of bleeding with debridement: Mild Bleeding Controlled with: Pressure Patient tolerated procedure: Patient tolerated procedure well Assessment/Plan Assessment: 1. Right ischial pressure sore with extension to perineal area, S tage IV. 2. Left ischial pressure sore with extension to the femur, Stage IV. 3. Paraplegia, longstanding. 4. History of MRSA. 5. History of osteomyelitis with multiple prior surgeries. 6. Smoker. Plan: His pressure sore ulcers are stable. The recent positive cultures from 04/22/20 probably colonized and not invasive. Recent WBC is trending downward. He is afebrile. There is not enough of a reason at this time to proceed with IV antibiotics. Discussed with Dr. Chester from Infectious Diseases. If the situation were to worsen, then would proceed with IV antibitiotics through a PICC line. At the present time, the culture showed Morganella morganii, Pseudomonas aeroginosa, Streptococcus group F, and Bacteroides fragilis. He will continue Dakin's dressing changes alternating with Silver dressing changes. He was interested in proceeding with a BKA because he is having difficulty with transfer. He states the leg gets in the way. The surgery which was scheduled for 11/07/19 was cancelled due to a seizure. He was started on IV Meropenem and it was thought the medication was responsible. He was started on Keppra. The workup was negative. Surgery was cancelled for now as he was seen by Neurology. He will let us know when he wants to proceed with the amputation. Encourage nutritional supplementation with protein to help the healing pr ocess. Encouraged the patient to stop smoking as it may have deleterious effects on wound healing. Followup 4 weeks. [id number]: [id number] Manisha musc/fascia 20 sq cm/< - 79 Modifier ICD-10 - L89.324, G82.20, Z86.14, Z87.39, F17.200 Left ischial ulcer. Add On Codes: [id number] Manisha musc/fascia add-on - X2 Units with 79 Modifier ICD- 10 - L89.324, G82.20, Z86.14, Z87.39, F17.200 Left ischial ulcer.
== END 2020-06-10 23:59 ==
LOC: WC 11:23
PROVIDERS: PCP Internal Medicine; Visit Provider Nurse Practitioner Family
DX: L89.224 Pressure ulcer of left hip, stage 4 (principal); L89.214 Pressure ulcer of right hip, stage 4; Z86.14 Personal history of Methicillin resistant Staphylococcus aureus infection; G82.20 Paraplegia, unspecified; F17.200 Nicotine dependence, unspecified, uncomplicated; Z86.19 Personal history of other infectious and parasitic diseases
CPT/HCPCS: 11043; 11046

== ENCOUNTER → 2020-05-27 13:10 | Outpatient (CLI) | payer MEDICARE, MEDICAID, SELFPAY ==
[2020-04-29 11:03] VITALS: BMI 19.5
[2020-05-27 11:39] VITALS: BMI 19.5
--- NOTE | 2020-05-27 13:12 | CT_ITS ---
STUDY: CT ABDOMEN AND PELVIS WITHOUT CONTRAST REASON FOR EXAM: Male, 54 years old. Kidney stone, unable to void. Hx paraplegia. RADIATION DOSAGE (If Supplied By Facility): CTDIvol = ( 6.37 ) mGy, DLP = ( 377.13 ) mGycm TECHNIQUE: Transaxial images were obtained from the dome of the diaphragm to the symphysis pubis without oral contrast, and without intravenous contrast. Sagittal and coronal images were reconstructed. Individualized dose optimization techniques were used for this CT. COMPARISON: None. FINDINGS: The visualized lung bases are unremarkable. The visualized portions of the heart are within normal limits. Normal liver. Normal gallbladder and extrahepatic biliary system. Normal spleen. Normal pancreas. Normal bilateral adrenal glands. Normal right kidney. Normal left kidney. Normal visualized stomach. Evidence of previous small bowel surgery, no ileus or obstruction noted. Retained stool noted in the colon with a few scattered diverticula but no CT evidence of acute diverticulitis. There is non-visualization of the appendix. There is diffuse atherosclerotic calcification of the abdominal aorta, without a demonstrated aneurysm. Normal inferior vena cava. Normal retroperitoneum. Normal urinary bladder. There is a stoma in the right abdomen. No CT evidence of common locations extensive degenerative bony changes with a prominent rotatory scoliosis. Severe bilateral hip joint arthrosis with AVN changes noted in the left hip joint. CT/Abdomen/Pelvis without Cont IMPRESSION: No suspicious solid organ abnormality, specifically, no obstructive uropathy No free intraperitoneal fluid, air, or suspicious adenopathy Retained stool in the colon Extensive degenerative bony changes with prominent rotatory scoliosis and severe bilateral hip joint arthrosis. Left hip shows changes of AVN. Electronically Signed: Joaquin Winter MD at 10:17 EDT , Service support ,
== END ==
PROVIDERS: PCP Internal Medicine; Referring Provider Urology; Visit Provider Urology
DX: N20.0 Calculus of kidney (principal); L89.224 Pressure ulcer of left hip, stage 4; L89.214 Pressure ulcer of right hip, stage 4; Z86.14 Personal history of Methicillin resistant Staphylococcus aureus infection; G82.20 Paraplegia, unspecified; F17.200 Nicotine dependence, unspecified, uncomplicated
CPT/HCPCS: 11043; 11046; 74176

== ENCOUNTER 2020-06-08 13:27 | Emergency (ER) | payer MEDICARE, MEDICAID, SELFPAY ==
[2020-06-08 13:29] VITALS: BP 90/70; PULSE 137; RESP 15; TEMP 36.3; O2SAT 99; BMI 19.8
--- NOTE | 2020-06-08 13:43 | RAD_ITS ---
STUDY: X-RAY - PELVIS AND RIGHT HIP REASON FOR EXAM: Male, 54 years old. Pt arrives with pain in right hip related to a fall. Pt is a paraplegic. Fall occurred 06/06/20 TECHNIQUE: 3 views of the pelvis and hip. COMPARISON: None. FINDINGS: There is a non-specific bowel gas pattern. Surgical clips are seen in the pelvic region. The iliac crests are suboptimally seen but are grossly intact. There is fusion of the symphysis pubis. There is diffuse demineralization of the osseous structures. There is a displaced fracture of the proximal right femur just distal to the intertrochanteric region which could be acute. There is deformity of the left hip. Soft tissue ossification around the visualized right femur is seen. RAD/HIP, UNI W/ Pelvis 2-3 Views IMPRESSION: Displaced fracture of the proximal right femur as described above likely acute. Electronically Signed: Gio Neir MD at 15:05 EDT Tel , Service support ,
--- NOTE | 2020-06-08 13:43 | RAD_ITS ---
STUDY: X-RAY - RIGHT KNEE REASON FOR EXAM: Male, 54 years old. Pt arrives with pain in right hip related to a fall. Pt is a paraplegic. Fall occurred 06/06/20 TECHNIQUE: 2 view(s) of the knee. COMPARISON: None. FINDINGS: There is demineralization of the visualized distal femur. There is demineralization of the tibia and fibula. Focal area of sclerosis in the distal femur and proximal tibia and could be due to bone infarcts. Deformity of the medial tibial plateau with depression likely related to old injury. Acute fracture is not definitely seen. Normal lateral femorotibial compartment. Normal patellofemoral articulation. Ossification anterior to the mid femur may represent myositis ossificans. The soft tissue structures are unremarkable. RAD/Knee 1 or 2 Views IMPRESSION: 1. Demineralization of the osseous structures. 2. 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 3. Deformity of the medial tibial plateau consistent with old injury. Superimposed acute injury is doubtful. Electronically Signed: Gio Neri MD at 14:46 EDT Tel , Service support ,
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
[2020-06-08 14:04] VITALS: O2SAT 96
--- NOTE | 2020-06-08 14:34 | RAD_ITS ---
STUDY: X-RAY - RIGHT FEMUR REASON FOR STUDY: Male, 54 years old. FALL, PT PARAPLEGIC TECHNIQUE: 4 view(s) of the femur. COMPARISON: CT of the pelvis dated 08/09/2015 FINDINGS: There is diffuse demineralization of the femur. There is a fracture within the proximal femoral diaphysis. There is cranial displacement of the distal femur. There is grossly stable heterotopic bone adjacent to the femoral diaphysis. There is a sclerotic focus within the distal femoral diaphysis that likely reflects an underlying bone infarct. There are similar appearing foci within the proximal tibia. RAD/Femur Min 2 Views IMPRESSION: Proximal femur fracture. Electronically Signed: Mali Hill MD at 15:48 EDT Tel , Service support ,
--- NOTE | 2020-06-08 14:47 | EKG12_ITS ---
Test Reason : Blood Pressure : / mmHG Vent. Rate : 143 BPM Atrial Rate : 133 BPM P-R Int : 000 ms QRS Dur : 184 ms QT Int : 328 ms P-R-T Axes : 000 241 019 degrees QTc Int : 506 ms Somatic/Motion Artifact Sinus tachycardia Possible RIVCD Poor R wave progression Confirmed by DARÍO ANTOINE, LEONELA ([id number]), website/blog editor BONIFACIO BARAJAS ([id number]) on 06/10/2020 2:04:22 PM Referred By: SHANICE Confirmed By:LEONELA CHANEL MD
[2020-06-08] MEDS: HYDROcodone Bitartrate/Apap 5/325 Tablet PO (14:53)
[2020-06-08 15:09] LABS: Absolute Lymphocyte Count 1.37 X10^3/uL (0.83-4.51); Absolute Neutrophil Count 12.7 X10^3/uL (2.0-7.7); Basophil# 0.04 X10^3/uL; Basophil% 0.2 % (0-1); Eosinophil# 0.01 X10^3/uL; Eosinophils% 0.1 % (0-5); Hematocrit 37.2 % (40-54); Hemoglobin 11.1 g/dL (13.0-16.5); Lymphocyte # 1.37 X10^3/ul (4.0); Lymphocyte % 8.5 % (19-41); Mean Corp Hgb Conc 29.8 g/dL (32-36); Mean Corpuscular Hgb 25.6 pg (27.0-32.0); Mean Corpuscular Volume 85.7 fL (80-94); Mean Platelet Vol. 9.3 fl (6.2-12.0); Monocyte% 11.8 % (0-10); NRBC Flagged by Analyzer 0 % (0-5); Neutrophil # 12.74 X10^3/uL (2.7-7.7); POSITIVE DIFFERENTIAL YES; Platelet Count 545 K/mm3 (150-450); RBC Distribution Width CV 15.3 % (11.6-14.6); RBC Distribution Width SD 47.8 fl (35.1-43.9); Red Blood Count 4.34 M/mm3 (4.6-6.2); White Blood Count 16.1 K/mm3 (4.4-11.0)
[2020-06-08 15:11] LABS: Differential Indicated SCAN CRITERIA MET
[2020-06-08] MEDS: 0.9% Normal Saline 1,000 ML 999 ML IV (15:23)
[2020-06-08 15:24] LABS: Anion Gap 6 (5-15); BUN 23 mg/dL (7-18); BUN/Creat Ratio 26.8 RATIO (10-20); Calcium,Total 8.8 mg/dL (8.5-10.1); Chloride 102 mmol/L (98-107); Creatinine, Serum 0.86 mg/dL (0.70-1.30); EST Glomerular Filtration Rate 99 mL/min (>60); Est Glom Filt Rate - Afr Amer 120 mL/min (>60); Estimated Creatinine Clearance 91.54 ml/min; Glucose 97 mg/dL (74-106); Potassium 3.9 mmol/L (3.5-5.1); Sodium Level 136 mmol/L (136-145)
[2020-06-08 15:31] LABS: Partial Thromboplast Time 28.5 Seconds (24.1-36.2)
[2020-06-08 16:16] LABS: Platelet Estimate SLT INC (ADEQ)
[2020-06-08 16:17] LABS: Hypochromasia 1+; Reactive Lymphocyte RARE
[2020-06-08 18:25] VITALS: BP 179/87; PULSE 122; RESP 18; TEMP 36.6; O2SAT 98
[2020-06-08] MEDS: fentaNYL 100 MCG/2 ML Ampul IV (18:34)
[2020-06-08 18:35] VITALS: BP 179/87; PULSE 122; RESP 18; TEMP 36.6; O2SAT 98
[2020-06-10 09:40] LABS: Pathologist Review Reviewed
== END 2020-06-08 18:56 | disposition short-term general hospital (02) ==
PROVIDERS: Emergency Provider Physician Assistant Medical; PCP Internal Medicine
DX: S72.91XA Unspecified fracture of right femur, initial encounter for closed fracture (principal); L89.314 Pressure ulcer of right buttock, stage 4; M86.68 Other chronic osteomyelitis, other site; L89.324 Pressure ulcer of left buttock, stage 4; G82.20 Paraplegia, unspecified; W05.0XXA Fall from non-moving wheelchair, initial encounter; Z86.14 Personal history of Methicillin resistant Staphylococcus aureus infection; Z87.891 Personal history of nicotine dependence
CPT/HCPCS: 73502; 73552; 73560; 80048; 85025; 85610; 85730; 93005; 96361; 96374; 99284; J7030; A4216

== ENCOUNTER 2020-07-01 11:02 | Outpatient (RCR) | payer MEDICARE, MEDICAID, SELFPAY ==
[2020-06-11 00:33] VITALS: BP 135/72; PULSE 98; RESP 18; TEMP 36.6
[2020-07-01 11:06] VITALS: BP 118/74; PULSE 118; RESP 16; TEMP 36.7; BMI 19.8
--- NOTE | 2020-07-01 15:04 | PCM.WC.PN ---
(1) Right ischial pressure sore, stage 4 Status: Chronic Current Visit: Yes Code(s): L89.314 - Pressure ulcer of right buttock, stage 4 (2) left ischial pressure sore, stage IV Status: Chronic Current Visit: Yes Code(s): L89.324 - Pressure ulcer of left buttock, stage 4 Comment: extending to the left femur (3) Above-knee amputation of right lower extremity Status: Acute Current Visit: Yes Code(s): S78.111A - Complete traumatic amputation at level between right hip and knee, initial encounter (4) Chronic osteomyelitis, pelvis Status: Chronic Current Visit: Yes Qualifiers: Code(s): M86.659 - Other chronic osteomyelitis, unspecified thigh (5) History of left below knee amputation Status: Chronic Current Visit: No Code(s): Z89.512 - Acquired absence of left leg below knee (6) Severe protein-calorie malnutrition Status: Chronic Current Visit: No Code(s): E43 - Unspecified severe protein-calorie malnutrition (7) Chronic paraplegia Status: Chronic Current Visit: No Code(s): G82.20 - Paraplegia, unspecified Type of Wound Date of Service: 07/01/20 Chief Complaint: Bilateral ischial pressure sores, Stage IV. History of Wound: Surgery 04/08/20 - 1. Excision bleeding right ischial/perineal pressure sore, Stage IV. 2. Control of prostatic bleeding with electrocautery and Surgicel hemostat. Wound Care - Dakin's dressing changes alternated with Silver dressing changes. Patient has long standing bilateral ischial pressure sores, Stage IV, with the left side extending to the femoral head and the right side extending to the perineal area and the prostate. Surgery would entail quite extensive excision with amputations at a tertiary center. Patient does not want to pursue any heroic surgeries at this time since it is not a guarantee his pressure issues won't recur. With aggressive amputations, his already tenuous balance would be even more disrupted. Today he denies any fever. His appetite is ok. At the present time, we are providing conservative care on a monthly basis. His right leg was getting in the way when transferring and he underwent a right cnlwk-cro-aqnl amputation on 06/12/[address] Villaseñor. Wound culture was done on 04/22/20. It showed Morganella morganii, Pseudomonas aeroginosa, Streptococcus group F, and Bacteroides fragilis. He has a lot of antibiotic allergies. His only real option is IV antibiotics. Dr. Chester also saw him at the [facility] and felt the wounds were colonized and held off on antibiotics at this time. If his clinical situation were to change, then would re-evaluate him for IV antibiotics at that time. Today he denies any fever. He states his appetite is ok. Progress of Wound: The patient denies any fever, chills, nausea, vomiting, or diarrhea. Denies any signs of infection, including increasing pain, redness, swelling, or drainage from affected area. He had a right oamxs-agl-dazr amputation with Dr. Villaseñor on 06/12/2020 and asks that we remove the tory today during his visit. We have received written permission from Dr. Villaseñor's office for tory to be removed today (07/01/2020). His surgical incision on his right lower extremity is well approximated. He reports that while hospitalized, he did not have good care of his bilateral ischial ulcers. They have increased in size since his last visit. - Physical Exam Vital Signs Temp Pulse Resp BP 98.1 F 118 H 16 118/74 07/01/20 11:06 07/01/20 11:06 07/01/20 11:06 07/01/20 11:06 General: Alert, Oriented x3, Cooperative, No apparent distress HEENT: Atraumatic, Normocephalic Oral: Moist Mucosa Lungs: Normal air movement Cardiovascular: Regular rate Extremities: No clubbing, No cyanosis Skin: Ulcer/ Wound - Left ischial and right ischial ulcers through the muscle layer. Small to moderate amount of slough present. There is no steffi-ulcer erythema, swelling, warmth, or tenderness. There is no purulent or foul-smelling drainage from either ulcer., Incision - Surgical incision of right lower extremity is well-approximated with 26 tory. No dehiscence, steffi-incisional erythema, swelling, tenderness to palpation, or warmth. There is no drainage present from the incision. Wound Measurements and Assessment WC - Nurse 1 - General Ulcer Measurement Start: 07/01/20 11:06 Freq: Status: Active Protocol: Activity Type Activity Date Activity User E-Sign Co-Sign Detail Recorded Client Recorded Date Recorded By Document 07/01/20 11:06 RADHA [id number] 07/01/20 11:17 RADHA 07/01/20 11:06 Wound Center Nurse 1 [Ulcer Assessment] #8 L Ischium -Current Size (cm) - Length 7.5 -Current Size (cm) - Width 5.7 -Current Size (cm) - Depth 0.7 -Total Square Cm 42.75 -Photo Taken No -Undermining/Tunneling Starts (O' 11 clock) -Undermining/Tunneling Ends (O'clock) 3 -Maximum Distance (cm) 1.1 -Exudate Amt Small -Exudate Type Serosanguineous -Wound Margin Distinct, Outline Attached -Granulation Amt Medium (34-66%) -Granulation Quality [place],Red -Necrosis Amt Medium (34-66%) -Necrotic Tissue Type Adherent Slough -Structure Exposed N/A -Texture (Steffi-wound Skin Appearance) Scarring -Moisture (Steffi-wound Skin Appearance Maceration ) -Color (Steffi-wound Skin Appearance) Rubor -Temperature (Steffi-wound Skin No Abnormality Appearance) (Pt Warm) -Ulcer Cleansing Wound Cleanser -Foul Odor after Cleansing No -Anesthetic Used 4% Lidocaine Solution #7 R Ischium -Current Size (cm) - Length 4.8 -Current Size (cm) - Width 1 -Current Size (cm) - Depth 1 -Total Square Cm 4.8 -Photo Taken No -Tunneling Position (O'clock) 1 -Tunneling Distance (cm) 1.5 -Exudate Amt Small -Exudate Type Serosanguineous -Wound Margin Thickened & Rolled Under -Granulation Amt Medium (34-66%) -Granulation Quality [place],Red -Necrosis Amt Medium (34-66%) -Necrotic Tissue Type Adherent Slough -Structure Exposed N/A -Texture (Steffi-wound Skin Appearance) Scarring -Moisture (Steffi-wound Skin Appearance Maceration ) -Color (Steffi-wound Skin Appearance) Rubor -Temperature (Steffi-wound Skin No Abnormality Appearance) (Pt Warm) -Tenderness on Palpation (Steffi-wound No Skin Appearance) -Ulcer Cleansing Wound Cleanser -Foul Odor after Cleansing No -Anesthetic Used 4% Lidocaine Solution WC - Nurse 2 - General Ulcer CM Notes Start: 07/01/20 11:06 Freq: Status: Active Protocol: Activity Type Activity Date Activity User E-Sign Co-Sign Detail Recorded Client Recorded Date Recorded By Document 07/01/20 11:29 DEBORAH [id number] 07/01/20 11:43 DEBORAH 07/01/20 11:29 Wound Center Nurse 2 [Procedure/Treatment] #8 L Ischium -Time 11:29 -Correct Patient Yes -Correct Side, Site, Position Yes -Correct Procedure Yes -Procedure Performed Yes -Type of Procedure Debridement -Clinical Debridement Muscle / Fascia -Tissue Removed Muscle -Post Debridement (cm) - Length 7.5 -Post Debridement (cm) - Width 6.2 -Post Debridement (cm) - Depth 1.0 -Total Square (Post) (cm) 46.50 -Area of Debridement (cm) - Length 7.5 -Area of Debridement (cm) - Width 6.2 -Total Square (Area) (cm) 46.50 -Tunneling No -Undermining/Tunneling No -Circular Undermining No -Ulcer Cleansing Rinsed/ Irrigated with Saline -Foul Odor after Cleansing No -Bioengineered Tissue No -Bleeding Controlled with Pressure -Offloading No -Treatment Response Procedure Tolerated Well -Debridement - Muscle / Fascia, 1st Yes 20sq cm -Debridement, Muscle/Fascia, ea addt' 4 l 20sq cm or part thereof #7 R Ischium -Time 11:29 -Correct Patient Yes -Correct Side, Site, Position Yes -Correct Procedure Yes -Procedure Performed Yes -Type of Procedure Debridement -Clinical Debridement Muscle / Fascia -Tissue Removed Muscle -Post Debridement (cm) - Length 4.8 -Post Debridement (cm) - Width 5.5 -Post Debridement (cm) - Depth 3.0 -Total Square (Post) (cm) 26.40 -Area of Debridement (cm) - Length 4.8 -Area of Debridement (cm) - Width 5.5 -Total Square (Area) (cm) 26.40 -Tunneling No -Undermining/Tunneling No -Circular Undermining No -Wound/Ulcer Outcome Not Healed -Ulcer Cleansing Rinsed/ Irrigated with Saline -Foul Odor after Cleansing No -Bioengineered Tissue No -Bleeding Controlled with Pressure -Offloading No -Treatment Response Procedure Tolerated Well -Debridement - Subq, 1st 20sq cm No -Debridement - Muscle / Fascia, 1st No 20sq cm [See Physician Procedure note for Specifics] Pain Scale: 0-10 Numeric [Pain] -Is Patient Pain Free? Yes - Nurse 3 - General Ulcer D/C NN Start: 07/01/20 11:06 Freq: Status: Active Protocol: Activity Type Activity Date Activity User E-Sign Co-Sign Detail Recorded Client Recorded Date Recorded By Document 07/01/20 12:04 [facility] [id number] 07/01/20 12:05 [facility] 07/01/20 12:04 Wound Care Nurse 3 [Wound Dressing] #8 L Ischium -Ulcer Cleansing Rinsed/ Irrigated with Saline -Foul Odor after Cleansing No -Primary Dressing Applied Aquacel AG 4x4 -Primary Dressing Covered/Secured Other with -Other Covering abd -Aquacel AG 4x4 1 #7 R Ischium -Ulcer Cleansing Rinsed/ Irrigated with Saline -Foul Odor after Cleansing No -Primary Dressing Applied Aquacel AG 4x4 -Primary Dressing Covered/Secured Other with -Other Covering abd -Aquacel AG 4x4 0 [Post Procedure Tolerated] -Treatment Response Procedure Tolerated Well Pain Scale: 0-10 Numeric [Pain] -Is Patient Pain Free? Yes - Visit Discharge [Visit Discharge Information] -Discharge Condition Stable -Ambulatory Status Wheelchair -Transportation [facility] Musculoskeletal: Muscle Wasting Psych/Mental Status: Normal Affect, Appropriate Debridement Note Post-Debridement Measurements/Treatment - Nurse 2 - General Ulcer CM Notes Start: 07/01/20 11:06 Freq: Status: Active Protocol: Activity Type Activity Date Activity User E-Sign Co-Sign Detail Recorded Client Recorded Date Recorded By Document 07/01/20 11:29 [id number] 07/01/20 11:43 07/01/20 11:29 Wound Center Nurse 2 #8 L Ischium -Time 11:29 -Correct Patient Yes -Correct Side, Site, Position Yes -Correct Procedure Yes -Procedure Performed Yes -Type of Procedure Debridement -Clinical Debridement Muscle / Fascia -Tissue Removed Muscle -Post Debridement (cm) - Length 7.5 -Post Debridement (cm) - Width 6.2 -Post Debridement (cm) - Depth 1.0 -Total Square (Post) (cm) 46.50 -Area of Debridement (cm) - Length 7.5 -Area of Debridement (cm) - Width 6.2 -Total Square (Area) (cm) 46.50 -Tunneling No -Undermining/Tunneling No -Circular Undermining No -Ulcer Cleansing Rinsed/ Irrigated with Saline -Foul Odor after Cleansing No -Bioengineered Tissue No -Bleeding Controlled with Pressure -Offloading No -Treatment Response Procedure Tolerated Well -Debridement - Muscle / Fascia, 1st Yes 20sq cm -Debridement, Muscle/Fascia, ea addt'l 4 20sq cm or part thereof #7 R Ischium -Time 11:29 -Correct Patient Yes -Correct Side, Site, Position Yes -Correct Procedure Yes -Procedure Performed Yes -Type of Procedure Debridement -Clinical Debridement Muscle / Fascia -Tissue Removed Muscle -Post Debridement (cm) - Length 4.8 -Post Debridement (cm) - Width 5.5 -Post Debridement (cm) - Depth 3.0 -Total Square (Post) (cm) 26.40 -Area of Debridement (cm) - Length 4.8 -Area of Debridement (cm) - Width 5.5 -Total Square (Area) (cm) 26.40 -Tunneling No -Undermining/Tunneling No -Circular Undermining No -Wound/Ulcer Outcome Not Healed -Ulcer Cleansing Rinsed/ Irrigated with Saline -Foul Odor after Cleansing No -Bioengineered Tissue No -Bleeding Controlled with Pressure -Offloading No -Treatment Response Procedure Tolerated Well -Debridement - Subq, 1st 20sq cm No -Debridement - Muscle / Fascia, 1st No 20sq cm Pain Scale: 0-10 Numeric Is Patient Pain Free? Yes - Nurse 3 - General Ulcer D/C NN Start: 07/01/20 11:06 Freq: Status: Active Protocol: Activity Type Activity Date Activity User E-Sign Co-Sign Detail Recorded Client Recorded Date Recorded By Document 07/01/20 12:04 [facility] [id number] 07/01/20 12:05 [facility] 07/01/20 12:04 Wound Care Nurse 3 #8 L Ischium -Ulcer Cleansing Rinsed/ Irrigated with Saline -Foul Odor after Cleansing No -Primary Dressing Applied Aquacel AG 4x4 -Primary Dressing Covered/Secured with Other -Other Covering abd -Aquacel AG 4x4 1 #7 R Ischium -Ulcer Cleansing Rinsed/ Irrigated with Saline -Foul Odor after Cleansing No -Primary Dressing Applied Aquacel AG 4x4 -Primary Dressing Covered/Secured with Other -Other Covering abd -Aquacel AG 4x4 0 Treatment Response Procedure Tolerated Well Pain Scale: 0-10 Numeric Is Patient Pain Free? Yes WC - Visit Discharge Discharge Condition Stable Ambulatory Status Wheelchair Transportation [facility] Wound debrided: Right iscial ulcer Laterality: Right Wound Grade/Stage: 4 Type of Debridement: Excisional debridement Anesthesia Used: 4% Lidocaine Solution, 5% Lidocaine Gel Depth: to muscle Percentage of wound debrided: 100 Instrument Used: 7mm curette Tissue Removed: Slough and devitalized tissue Severity: Fat Layer Exposed Amount of bleeding with debridement: Mild Bleeding Controlled with: Pressure Patient tolerated procedure well - Additional Wound Wound debrided: Left ischial ulcer Laterality: Left Wound Grade/Stage: 4 Type of Debridement: Excisional debridement Anesthesia Used: 4% Lidocaine Solution Depth: to muscle Percentage of wound debrided: 100 Instrument Used: 7mm curette Tissue Removed: Slough and devitalized tissue Severity: Fat Layer Exposed Amount of bleeding with debridement: Mild Bleeding Controlled with: Pressure Patient tolerated procedure: Patient tolerated procedure well Assessment/Plan Active Problems (Last Reviewed 04/26/20 @ 11:12 by Meagan Rhoades) Above-knee amputation of right lower extremity (Acute) Chronic osteomyelitis, pelvis (Chronic) Right ischial pressure sore, stage 4 (Chronic) left ischial pressure sore, stage IV (Chronic) extending to the left femur Assessment: 1. Right ischial pressure sore with extension to perineal area, Stage IV. 2. Left ischial pressure sore with extension to the femur, Stage IV. 3. Paraplegia, longstanding. 4. History of MRSA. 5. History of osteomyelitis with multiple prior surgeries. 6. Smoker. 7. Fqlce-iwrg-lvhzkifvpi of right lower extremity (06/12/2020) Plan: His bilateral ischial pressure ulcers have increased in size since his last visit, which the patient attributes to poor wound care during his hospitalization for recent right uvzfg-kfy-[id number] amputation (performed 06/12/2020). The recent positive cultures from 04/22/20 probably colonized and not invasive. Recent WBC is trending downward. He is afebrile. There is not enough of a reason at this time to proceed with IV antibiotics. Discussed with Dr. Chester from Infectious Disease. If the situation were to worsen, then would proceed with IV antibitiotics through a PICC line. At the present time, the culture showed Morganella morganii, Pseudomonas aeroginosa, Streptococcus group F, and Bacteroides fragilis. He will continue Dakin's dressing changes alternating with Silver dressing changes. 26 tory were removed from his right sfeir-ery-egxe amputation surgical incision at today's visit. He was instructed to apply bacitracin ointment to the incision. Encouraged nutritional supplementation with protein to help the healing process. Encouraged the patient to stop smoking as it may have deleterious effects on wound healing. Follow-up in 4 weeks for reevaluation. Follow-up sooner should new or concerning symptoms arise. [id number]: [id number] Manisha musc/fascia 20 sq cm/< - plus procedural charge for staple removal
== END 2020-07-10 23:59 ==
LOC: WC 11:02
PROVIDERS: PCP Internal Medicine; Visit Provider Nurse Practitioner Family
DX: L89.314 Pressure ulcer of right buttock, stage 4 (principal); L89.324 Pressure ulcer of left buttock, stage 4; M86.68 Other chronic osteomyelitis, other site; M86.659 Other chronic osteomyelitis, unspecified thigh; G82.20 Paraplegia, unspecified; F17.200 Nicotine dependence, unspecified, uncomplicated; Z79.899 Other long term (current) drug therapy; Z86.14 Personal history of Methicillin resistant Staphylococcus aureus infection; Z89.611 Acquired absence of right leg above knee; Z89.512 Acquired absence of left leg below knee
CPT/HCPCS: 11043; 11046

== ENCOUNTER 2020-07-29 10:00 | Outpatient (RCR) | payer MEDICARE, MEDICAID, SELFPAY ==
[2020-07-11 00:30] VITALS: BP 118/74; PULSE 118; RESP 16; TEMP 36.7
--- NOTE | 2020-07-29 10:23 | PN.PCM_ITS ---
Type of Wound Date of Service: 07/29/20 Chief Complaint: Bilateral ischial pressure sores, Stage IV. History of Wound: Surgery 04/08/20 - 1. Excision bleeding right ischial/perineal pressure sore, Stage IV. 2. Control of prostatic bleeding with electrocautery and Surgicel hemostat. Wound Care - Dakin's dressing changes alternated with Silver dressing changes. Patient has long standing bilateral ischial pressure sores, Stage IV, with the left side extending to the femoral head and the right side extending to the perineal area and the prostate. Surgery would entail quite extensive excision with amputations at a tertiary center. Patient does not want to pursue any heroic surgeries at this time since it is not a guarantee his pressure issues won't recur. With aggressive amputations, his already tenuous balance would be even more disrupted. Today he denies any fever. His appetite is ok. At the present time, we are providing conservative care on a monthly basis. He states his right leg gets in the way when transferring. He underwent a right AKA on 06/12/20 in [place]. Wound culture was done on 04/22/20. It showed Morganella morganii, Pseudomonas aeroginosa, Streptococcus group F, and Bacteroides fragilis. He has a lot of antibiotic allergies. His only real option is IV antibiotics. Dr. Chester also saw him at the [facility] and felt the wounds were colonized and held off on antibiotics at this time. If his clinical situation were to change, then would re-evaluate him for IV antibiotics at that time. Today he denies any fever. He states his appetite is ok. Progress of Wound: Improved. - Physical Exam Vital Signs Temp Pulse Resp BP 97.5 F L 115 H 16 125/70 H 07/29/20 09:45 07/29/20 09:45 07/29/20 09:45 07/29/20 09:45 Wound Measurements and Assessment WC - Nurse 1 - General Ulcer Measurement Start: 07/29/20 09:45 Freq: Status: Active Protocol: Activity Type Activity Date Activity User E-Sign Co-Sign Detail Recorded Client Recorded Date Recorded By Document 07/29/20 09:45 MW [id number] 07/29/20 09:49 MW 07/29/20 09:45 Wound Center Nurse 1 [Ulcer Assessment] #8 L Ischium -Combined with other wound No -Current Size (cm) - Length 7.0 -Current Size (cm) - Width 6.8 -Current Size (cm) - Depth 0.1 -Total Square Cm 47.60 -Photo Taken No -Epithelialization None Present -Tunneling No -Undermining/Tunneling No -Circular Undermining No -Exudate Amt Medium -Exudate Type Serosanguineous -Wound Margin Flat & Intact -Granulation Amt Large (67-100%) -Granulation Quality [place] -Slough/Fibrin Yes -Necrosis Amt Small (1-33%) -Necrotic Tissue Type Adherent Slough -Structure Exposed N/A -Texture (Steffi-wound Skin Appearance) Assessed, Scarring -Moisture (Steffi-wound Skin Appearance Assessed, ) Maceration -Color (Steffi-wound Skin Appearance) No Abnormality, Assessed -Temperature (Steffi-wound Skin No Abnormality Appearance) (Pt Warm) -Tenderness on Palpation (Steffi-wound Yes Skin Appearance) -Ulcer Cleansing Rinsed/ Irrigated with Saline -Foul Odor after Cleansing No #7 R Ischium -Combined with other wound No -Current Size (cm) - Length 3.8 -Current Size (cm) - Width 1.0 -Current Size (cm) - Depth 1.9 -Total Square Cm 3.80 -Photo Taken No -Epithelialization None Present -Tunneling No -Undermining/Tunneling No -Circular Undermining No -Exudate Amt Medium -Exudate Type Serosanguineous -Wound Margin Flat & Intact -Granulation Amt Large (67-100%) -Granulation Quality [place] -Slough/Fibrin Yes -Necrosis Amt Small (1-33%) -Necrotic Tissue Type Adherent Slough -Structure Exposed N/A -Texture (Steffi-wound Skin Appearance) Assessed, Scarring -Moisture (Steffi-wound Skin Appearance Assessed, ) Maceration -Color (Steffi-wound Skin Appearance) No Abnormality, Assessed -Temperature (Steffi-wound Skin No Abnormality Appearance) (Pt Warm) -Tenderness on Palpation (Steffi-wound Yes Skin Appearance) -Ulcer Cleansing Rinsed/ Irrigated with Saline -Foul Odor after Cleansing No [Edema Assessment] -Lower Limb Edema Present No WC - Nurse 2 - General Ulcer CM Notes Start: 07/29/20 09:45 Freq: Status: Active Protocol: Activity Type Activity Date Activity User E-Sign Co-Sign Detail Recorded Client Recorded Date Recorded By Document 07/29/20 09:57 DEBORAH [id number] 07/29/20 10:01 DEBORAH 07/29/20 09:57 Wound Center Nurse 2 [Procedure/Treatment] #8 L Ischium -Time 09:57 -Correct Patient Yes -Correct Side, Site, Position Yes -Correct Procedure Yes -Procedure Performed Yes -Type of Procedure Debridement -Clinical Debridement Muscle / Fascia -Tissue Removed Muscle -Post Debridement (cm) - Length 7.0 -Post Debridement (cm) - Width 6.8 -Post Debridement (cm) - Depth 0.2 -Total Square (Post) (cm) 47.60 -Area of Debridement (cm) - Length 7.0 -Area of Debridement (cm) - Width 6.8 -Total Square (Area) (cm) 47.60 -Tunneling No -Undermining/Tunneling No -Circular Undermining No -Wound/Ulcer Outcome Not Healed -Ulcer Cleansing Rinsed/ Irrigated with Saline -Foul Odor after Cleansing No -Bioengineered Tissue No -Bleeding Controlled with Pressure -Offloading No -Treatment Response Procedure Tolerated Well -Debridement - Muscle / Fascia, 1st Yes 20sq cm -Debridement, Muscle/Fascia, ea addt' 2 l 20sq cm or part thereof #7 R Ischium -Time 09:58 -Correct Patient Yes -Correct Side, Site, Position Yes -Correct Procedure Yes -Procedure Performed Yes -Type of Procedure Debridement -Clinical Debridement Muscle / Fascia -Tissue Removed Muscle -Post Debridement (cm) - Length 3.8 -Post Debridement (cm) - Width 1.1 -Post Debridement (cm) - Depth 2 -Total Square (Post) (cm) 4.18 -Area of Debridement (cm) - Length 3.8 -Area of Debridement (cm) - Width 1.1 -Total Square (Area) (cm) 4.18 -Tunneling No -Undermining/Tunneling No -Circular Undermining No -Ulcer Cleansing Rinsed/ Irrigated with Saline -Foul Odor after Cleansing No -Bioengineered Tissue No -Bleeding Controlled with Pressure -Offloading No -Treatment Response Procedure Tolerated Well -Debridement - Muscle / Fascia, 1st No 20sq cm [See Physician Procedure note for Specifics] Pain Scale: 0-10 Numeric [Pain] -Is Patient Pain Free? Yes Debridement Note Post-Debridement Measurements/Treatment WC - Nurse 2 - General Ulcer CM Notes Start: 07/29/20 09:45 Freq: Status: Active Protocol: Activity Type Activity Date Activity User E-Sign Co-Sign Detail Recorded Client Recorded Date Recorded By Document 07/29/20 09:57 DEBORAH [id number] 07/29/20 10:01 DEBORAH 07/29/20 09:57 Wound Center Nurse 2 #8 L Ischium -Time 09:57 -Correct Patient Yes -Correct Side, Site, Position Yes -Correct Procedure Yes -Procedure Performed Yes -Type of Procedure Debridement -Clinical Debridement Muscle / Fascia -Tissue Removed Muscle -Post Debridement (cm) - Length 7.0 -Post Debridement (cm) - Width 6.8 -Post Debridement (cm) - Depth 0.2 -Total Square (Post) (cm) 47.60 -Area of Debridement (cm) - Length 7.0 -Area of Debridement (cm) - Width 6.8 -Total Square (Area) (cm) 47.60 -Tunneling No -Undermining/Tunneling No -Circular Undermining No -Wound/Ulcer Outcome Not Healed -Ulcer Cleansing Rinsed/ Irrigated with Saline -Foul Odor after Cleansing No -Bioengineered Tissue No -Bleeding Controlled with Pressure -Offloading No -Treatment Response Procedure Tolerated Well -Debridement - Muscle / Fascia, 1st Yes 20sq cm -Debridement, Muscle/Fascia, ea addt'l 2 20sq cm or part thereof #7 R Ischium -Time 09:58 -Correct Patient Yes -Correct Side, Site, Position Yes -Correct Procedure Yes -Procedure Performed Yes -Type of Procedure Debridement -Clinical Debridement Muscle / Fascia -Tissue Removed Muscle -Post Debridement (cm) - Length 3.8 -Post Debridement (cm) - Width 1.1 -Post Debridement (cm) - Depth 2 -Total Square (Post) (cm) 4.18 -Area of Debridement (cm) - Length 3.8 -Area of Debridement (cm) - Width 1.1 -Total Square (Area) (cm) 4.18 -Tunneling No -Undermining/Tunneling No -Circular Undermining No -Ulcer Cleansing Rinsed/ Irrigated with Saline -Foul Odor after Cleansing No -Bioengineered Tissue No -Bleeding Controlled with Pressure -Offloading No -Treatment Response Procedure Tolerated Well -Debridement - Muscle / Fascia, 1st No 20sq cm Pain Scale: 0-10 Numeric Is Patient Pain Free? Yes Wound debrided: #7 Right ischial area. Laterality: Right Wound Grade/Stage: IV. Type of Debridement: Excisional debridement Anesthesia Used: 4% Lidocaine Solution Depth: Down to and including healthy tissue, in the subcutaneous layer, to muscle, to bone - bone is palpable but not debrided. Percentage of wound debrided: 100 Instrument Used: 5mm curette Tissue Removed: subcutaneous tissue and muscle. Severity: Fat Layer Exposed - muscle is exposed. bone is palpable but not debrided. Amount of bleeding with debridement: Mild Bleeding Controlled with: Pressure Patient tolerated procedure well - Additional Wound Wound debrided: #8 Left ischial area. Laterality: Left Wound Grade/Stage: IV. Type of Debridement: Excisional debridement Anesthesia Used: 4% Lidocaine Solution Depth: Down to and including healthy tissue, in the subcutaneous layer, to muscle, to bone - bone is palpable but not debrided. Percentage of wound debrided: 100 Instrument Used: 5mm curette Tissue Removed: subcutaneous tissue and muscle. Severity: Fat Layer Exposed - muscle is exposed. bone is palpable but not debrided. Amount of bleeding with debridement: Mild Bleeding Controlled with: Pressure Patient tolerated procedure: Patient tolerated procedure well Assessment/Plan Assessment: 1. Right ischial pressure sore with extension to perineal area, Stage IV. 2. Left ischial pressure sore with extension to the femur, Stage IV. 3. Paraplegia, longstanding. 4. History of MRSA. 5. History of osteomyelitis with multiple prior surgeries. 6. Smoker. 7. s/p right AKA (06/12/2020) in [place]. Plan: His pressure sore ulcers are stable. The recent positive cultures from 04/22/20 probably colonized and not invasive. Recent WBC is trending downward. He is afebrile. There is not enough of a reason at this time to proceed with IV antibiotics. Discussed with Dr. Chester from Infectious Diseases. If the situation were to worsen, then would proceed with IV antibitiotics through a PICC line. At the present time, the culture showed Morganella morganii, Pseudomonas aeroginosa, Streptococcus group F, and Bacteroides fragilis. He will continue Dakin's dressing changes alternating with Silver dressing changes. He was interested in proceeding with a BKA because he is having difficulty with transfer. He states the leg gets in the way. The surgery which was scheduled for 11/07/19 was cancelled due to a seizure. He was started on IV Meropenem and it was thought the medication was responsible. He was started on Keppra. The workup was negative. Surgery was cancelled for now as he was seen by Neurology. He will let us know when he wants to proceed with the amputation. Encourage nutritional supplementation with protein to help the healing process. Encouraged the patient to stop smoking as it may have deleterious effects on wound healing. Followup 4 weeks. His right AKA done on 06/12/20 in [place] is healing satisfactory. [id number]: [id number] Manisha musc/fascia 20 sq cm/< - ICD-10 - L89.324, L89.314, G82.20, Z86.14, Z87.39, F17.200 Add On Codes: [id number] Manisha musc/fascia add-on - X2 units ICD-10 - L89.324, L89.314, G82.20, Z86.14, Z87.39, F17.200
== END 2020-08-10 23:59 ==
LOC: WC 10:00
PROVIDERS: PCP Internal Medicine; Visit Provider Nurse Practitioner Family
DX: L89.224 Pressure ulcer of left hip, stage 4 (principal); L89.214 Pressure ulcer of right hip, stage 4; Z86.14 Personal history of Methicillin resistant Staphylococcus aureus infection; G82.20 Paraplegia, unspecified; F17.200 Nicotine dependence, unspecified, uncomplicated; Z89.611 Acquired absence of right leg above knee
CPT/HCPCS: 11043; 11046

== ENCOUNTER → 2020-07-31 10:25 | Outpatient (CLI) | payer MEDICARE, MEDICAID, SELFPAY ==
[2020-07-29 09:45] VITALS: BMI 19.8
[2020-07-31 12:49] LABS: Hematocrit 43.5 % (40-54); Hemoglobin 12.7 g/dL (13.0-16.5); Mean Corp Hgb Conc 29.2 g/dL (32-36); Mean Corpuscular Hgb 26.5 pg (27.0-32.0); Mean Corpuscular Volume 90.8 fL (80-94); Mean Platelet Vol. 10.2 fl (6.2-12.0); Platelet Count 406 K/mm3 (150-450); RBC Distribution Width CV 15.1 % (11.6-14.6); RBC Distribution Width SD 50.4 fl (35.1-43.9); Red Blood Count 4.79 M/mm3 (4.6-6.2); White Blood Count 9.7 K/mm3 (4.4-11.0)
[2020-07-31 12:50] LABS: Ferritin 17 ng/mL (26-388); Iron 32 ug/dL (65-175)
[2020-08-02 16:08] LABS: Endomysial Antibody IgA Negative (Negative)
[2020-08-02 16:19] LABS: Immunoglobulin A 139 mg/dL (90-386); t-Transglutaminase IgA <2 U/mL (0-3)
== END ==
PROVIDERS: PCP Internal Medicine; Referring Provider Internal Medicine Gastroenterology; Visit Provider Internal Medicine Gastroenterology
DX: D50.9 Iron deficiency anemia, unspecified (principal)
CPT/HCPCS: 36415; 82728; 82784; 83516; 83540; 85027; 86255

== ENCOUNTER 2020-09-02 10:45 | Outpatient (RCR) | payer MEDICARE, MEDICAID, SELFPAY ==
[2020-07-29 09:45] VITALS: BMI 19.8
[2020-08-11 00:19] VITALS: BP 125/70; PULSE 115; RESP 16; TEMP 36.4
[2020-08-20 09:17] VITALS: BMI 19.8
[2020-09-02 10:52] VITALS: BP 94/58; PULSE 125; TEMP 36.2; BMI 19.8
--- NOTE | 2020-09-02 13:09 | PCM.WC.PN ---
(1) left ischial pressure sore, stage IV Status: Chronic Code(s): L89.324 - Pressure ulcer of left buttock, stage 4 Comment: extending to the left femur (2) Right ischial pressure sore, stage 4 Status: Chronic Code(s): L89.314 - Pressure ulcer of right buttock, stage 4 (3) Chronic osteomyelitis, pelvis Status: Chronic Qualifiers: Code(s): M86.659 - Other chronic osteomyelitis, unspecified thigh (4) Severe protein-calorie malnutrition Status: Chronic Code(s): E43 - Unspecified severe protein-calorie malnutrition (5) Above-knee amputation of right lower extremity Status: Chronic Code(s): S78.111A - Complete traumatic amputation at level between right hip and knee, initial encounter (6) History of left below knee amputation Status: Chronic Code(s): Z89.512 - Acquired absence of left leg below knee (7) History of tobacco use Status: Chronic Code(s): Z87.891 - Personal history of nicotine dependence Type of Wound Date of Service: 09/02/20 Chief Complaint: Bilateral ischial pressure sores, Stage IV. History of Wound: Surgery 04/08/20 - 1. Excision bleeding right ischial/perineal pressure sore, Stage IV. 2. Control of prostatic bleeding with electrocautery and Surgicel hemostat. Wound Care - Dakin's dressing changes alternated with Silver dressing changes. Patient has long standing bilateral ischial pressure sores, Stage IV, with the left side extending to the femoral head and the right side extending to the perineal area and the prostate. Surgery would entail quite extensive excision with amputations at a tertiary center. Patient does not want to pursue any heroic surgeries at this time since it is not a guarantee his pressure issues won't recur. With aggressive amputations, his already tenuous balance would be even more disrupted. Today he denies any fever. His appetite is ok. At the present time, we are providing conservative care on a monthly basis. He states his right leg gets in the way when transferring. He underwent a right AKA on 06/12/20 in [place]. Wound culture was done on 04/22/20. It showed Morganella morganii, Pseudomonas aeroginosa, Streptococcus group F, and Bacteroides fragilis. He has a lot of antibiotic allergies. His only real option is IV antibiotics. Dr. Chester also saw him at the [facility] and felt the wounds were colonized and held off on antibiotics at this time. If his clinical situation were to change, then would re-evaluate him for IV antibiotics at that time. Today he denies any fever. He states his appetite is ok. Progress of Wound: Stable. - Physical Exam Vital Signs Temp Pulse Resp BP 97.1 F L 125 H 16 94/58 L 09/02/20 10:52 09/02/20 10:52 08/11/20 00:19 09/02/20 10:52 General: Alert, Oriented x3, Cooperative HEENT: Atraumatic Oral: Moist Mucosa Lungs: Normal air movement Cardiovascular: Regular rate Extremities: Capillary Refill Less than 3 Seconds Skin: Ulcer/ Wound - Left and right ischial ulcers. Right ulcer is almost healed. Left ulcer will drain a clear fluid when he has muscle spasms. Wound Measurements and Assessment WC - Nurse 1 - General Ulcer Measurement Start: 09/02/20 10:52 Freq: Status: Active Protocol: Activity Type Activity Date Activity User E-Sign Co-Sign Detail Recorded Client Recorded Date Recorded By Document 09/02/20 10:52 [facility] [id number] 09/02/20 11:00 [facility] 09/02/20 10:52 Wound Center Nurse 1 [Ulcer Assessment] #8 L Ischium -Current Size (cm) - Length 5.4 -Current Size (cm) - Width 6.7 -Current Size (cm) - Depth 0.4 -Total Square Cm 36.18 -Photo Taken No -Exudate Amt Small -Exudate Type Serosanguineous -Wound Margin Thickened & Rolled Under -Granulation Amt Medium (34-66%) -Granulation Quality Red -Necrosis Amt Medium (34-66%) -Necrotic Tissue Type Adherent Slough -Texture (Steffi-wound Skin Appearance) Assessed, Scarring -Moisture (Steffi-wound Skin Appearance Assessed, ) Maceration -Temperature (Steffi-wound Skin No Abnormality Appearance) (Pt Warm) -Ulcer Cleansing Rinsed/ Irrigated with Saline -Foul Odor after Cleansing No #7 R Ischium -Current Size (cm) - Length 3.9 -Current Size (cm) - Width 1.8 -Current Size (cm) - Depth 0.2 -Total Square Cm 7.02 -Tunneling Yes -Tunneling Position (O'clock) 1 -Tunneling Distance (cm) 5.6 -Exudate Amt Medium -Exudate Type Serosanguineous -Wound Margin Distinct, Outline Attached -Granulation Amt Medium (34-66%) -Granulation Quality Red -Necrosis Amt Medium (34-66%) -Necrotic Tissue Type Adherent Slough -Texture (Steffi-wound Skin Appearance) Assessed, Scarring -Moisture (Steffi-wound Skin Appearance Assessed, ) Maceration -Color (Steffi-wound Skin Appearance) Assessed -Temperature (Steffi-wound Skin No Abnormality Appearance) (Pt Warm) -Tenderness on Palpation (Steffi-wound No Skin Appearance) -Ulcer Cleansing Rinsed/ Irrigated with Saline -Foul Odor after Cleansing No WC - Nurse 2 - General Ulcer CM Notes Start: 09/02/20 10:52 Freq: Status: Active Protocol: Activity Type Activity Date Activity User E-Sign Co-Sign Detail Recorded Client Recorded Date Recorded By Document 09/02/20 11:33 DEBORAH [id number] 09/02/20 11:38 DEBORAH 09/02/20 11:33 W[facility] Center Nurse 2 [Procedure/Treatment] #8 L Ischium -Time 11:34 -Correct Patient Yes -Correct Side, Site, Position Yes -Correct Procedure Yes -Procedure Performed Yes -Type of Procedure Debridement -Clinical Debridement Muscle / Fascia -Tissue Removed Muscle -Post Debridement (cm) - Length 7 -Post Debridement (cm) - Width 7 -Post Debridement (cm) - Depth 0.3 -Total Square (Post) (cm) 49 -Area of Debridement (cm) - Length 7 -Area of Debridement (cm) - Width 7 -Total Square (Area) (cm) 49 -Tunneling No -Undermining/Tunneling No -Circular Undermining No -Wound/Ulcer Outcome Not Healed -Ulcer Cleansing Rinsed/ Irrigated with Saline -Foul Odor after Cleansing No -Bioengineered Tissue No -Bleeding Controlled with Pressure -Offloading No -Treatment Response Procedure Tolerated Well -Debridement - Muscle / Fascia, 1st Yes 20sq cm -Debridement, Muscle/Fascia, ea addt' 2 l 20sq cm or part thereof #7 R Ischium -Time 11:35 -Correct Patient Yes -Correct Side, Site, Position Yes -Correct Procedure Yes -Procedure Performed Yes -Type of Procedure Debridement -Clinical Debridement Muscle / Fascia -Tissue Removed Muscle -Post Debridement (cm) - Length 4 -Post Debridement (cm) - Width 2 -Post Debridement (cm) - Depth 0.2 -Total Square (Post) (cm) 8 -Area of Debridement (cm) - Length 4 -Area of Debridement (cm) - Width 2 -Total Square (Area) (cm) 8 -Tunneling No -Undermining/Tunneling No -Circular Undermining No -Wound/Ulcer Outcome Not Healed -Ulcer Cleansing Rinsed/ Irrigated with Saline -Foul Odor after Cleansing No -Bioengineered Tissue No -Bleeding Controlled with Pressure -Offloading No -Treatment Response Procedure Tolerated Well -Debridement - Muscle / Fascia, 1st No 20sq cm [See Physician Procedure note for Specifics] Pain Scale: 0-10 Numeric [Pain] -Is Patient Pain Free? Yes WC - Nurse 3 - General Ulcer D/C NN Start: 09/02/20 10:52 Freq: Status: Active Protocol: Activity Type Activity Date Activity User E-Sign Co-Sign Detail Recorded Client Recorded Date Recorded By Document 09/02/20 12:02 MW [id number] 09/02/20 12:03 MW 09/02/20 12:02 Wound Care Nurse 3 [Wound Dressing] #8 L Ischium -Ulcer Cleansing Rinsed/ Irrigated with Saline -Foul Odor after Cleansing No -Negative Pressure Wound Therapy N/A -Primary Dressing Applied Aquacel AG 4x4 -Primary Dressing Covered/Secured Secured with with Tape -Other Covering abd pad -Aquacel AG 4x4 1 #7 R Ischium -Ulcer Cleansing Rinsed/ Irrigated with Saline -Foul Odor after Cleansing No -Negative Pressure Wound Therapy N/A -Other Dressing aquacel ag -Primary Dressing Covered/Secured Secured with with Tape -Other Covering abd pad [Post Procedure Tolerated] -Treatment Response Procedure Tolerated Well Teaching: Wound Center [Wound Center Education] (Items with an * have Printed Materials Available- Please identify what is given to patient under the Teaching materials given to patient and caregiver Section. Dressing Your Wound -Person Taught Patient -Teaching Method Discussion, Demonstration -Response to teaching Verbalize understanding WC - Visit Discharge [Visit Discharge Information] -Discharge Condition Stable -Ambulatory Status Wheelchair -Transportation [employer] transportation -Medication Reconcilliation completed No & provided to patient/care provider -Clinical Summary of Care Provided Yes Musculoskeletal: Muscle Wasting, - - He has been having a lot of muscle spasms, when he has a spasm, the clear fluid from his left ulcer drains more. Neurological: Cranial nerves II-XII grossly intact Psych/Mental Status: Normal Affect, Appropriate Debridement Note Post-Debridement Measurements/Treatment WC - Nurse 2 - General Ulcer CM Notes Start: 09/02/20 10:52 Freq: Status: Active Protocol: Activity Type Activity Date Activity User E-Sign Co-Sign Detail Recorded Client Recorded Date Recorded By Document 09/02/20 11:33 DEBORAH [id number] 09/02/20 11:38 DEBORAH 09/02/20 11:33 Wound Center Nurse 2 #8 L Ischium -Time 11:34 -Correct Patient Yes -Correct Side, Site, Position Yes -Correct Procedure Yes -Procedure Performed Yes -Type of Procedure Debridement -Clinical Debridement Muscle / Fascia -Tissue Removed Muscle -Post Debridement (cm) - Length 7 -Post Debridement (cm) - Width 7 -Post Debridement (cm) - Depth 0.3 -Total Square (Post) (cm) 49 -Area of Debridement (cm) - Length 7 -Area of Debridement (cm) - Width 7 -Total Square (Area) (cm) 49 -Tunneling No -Undermining/Tunneling No -Circular Undermining No -Wound/Ulcer Outcome Not Healed -Ulcer Cleansing Rinsed/ Irrigated with Saline -Foul Odor after Cleansing No -Bioengineered Tissue No -Bleeding Controlled with Pressure -Offloading No -Treatment Response Procedure Tolerated Well -Debridement - Muscle / Fascia, 1st Yes 20sq cm -Debridement, Muscle/Fascia, ea addt'l 2 20sq cm or part thereof #7 R Ischium -Time 11:35 -Correct Patient Yes -Correct Side, Site, Position Yes -Correct Procedure Yes -Procedure Performed Yes -Type of Procedure Debridement -Clinical Debridement Muscle / Fascia -Tissue Removed Muscle -Post Debridement (cm) - Length 4 -Post Debridement (cm) - Width 2 -Post Debridement (cm) - Depth 0.2 -Total Square (Post) (cm) 8 -Area of Debridement (cm) - Length 4 -Area of Debridement (cm) - Width 2 -Total Square (Area) (cm) 8 -Tunneling No -Undermining/Tunneling No -Circular Undermining No -Wound/Ulcer Outcome Not Healed -Ulcer Cleansing Rinsed/ Irrigated with Saline -Foul Odor after Cleansing No -Bioengineered Tissue No -Bleeding Controlled with Pressure -Offloading No -Treatment Response Procedure Tolerated Well -Debridement - Muscle / Fascia, 1st No 20sq cm Pain Scale: 0-10 Numeric Is Patient Pain Free? Yes WC - Nurse 3 - General Ulcer D/C NN Start: 09/02/20 10:52 Freq: Status: Active Protocol: Activity Type Activity Date Activity User E-Sign Co-Sign Detail Recorded Client Recorded Date Recorded By Document 09/02/20 12:02 MW [id number] 09/02/20 12:03 MW 09/02/20 12:02 Wound Care Nurse 3 #8 L Ischium -Ulcer Cleansing Rinsed/ Irrigated with Saline -Foul Odor after Cleansing No -Negative Pressure Wound Therapy N/A -Primary Dressing Applied Aquacel AG 4x4 -Primary Dressing Covered/Secured with Secured with Tape -Other Covering abd pad -Aquacel AG 4x4 1 #7 R Ischium -Ulcer Cleansing Rinsed/ Irrigated with Saline -Foul Odor after Cleansing No -Negative Pressure Wound Therapy N/A -Other Dressing aquacel ag -Primary Dressing Covered/Secured with Secured with Tape -Other Covering abd pad Treatment Response Procedure Tolerated Well Teaching: Wound Center Dressing Your Wound -Person Taught Patient -Teaching Method Discussion, Demonstration -Response to teaching Verbalize understanding WC - Visit Discharge Discharge Condition Stable Ambulatory Status Wheelchair Transportation [employer] transportation Medication Reconcilliation completed & No provided to patient/care provider Clinical Summary of Care Provided Yes Wound debrided: ischial ulcer Laterality: Left Type of Debridement: Excisional debridement Anesthesia Used: 5% Lidocaine Gel Depth: Down to and including healthy tissue, in the subcutaneous layer, to muscle Percentage of wound debrided: 100 Instrument Used: 5mm curette Tissue Removed: Subcutaneous tissue and slough into the muscle Severity: Fat Layer Exposed Amount of bleeding with debridement: Mild Bleeding Controlled with: Pressure Patient tolerated procedure well - Additional Wound Wound debrided: ischial ulcer Laterality: Right Type of Debridement: Excisional debridement Anesthesia Used: 5% Lidocaine Gel Depth: Down to and including healthy tissue, in the subcutaneous layer Percentage of wound debrided: 100 Instrument Used: 3mm curette Tissue Removed: Subcutaneous tissue and slough Severity: Limited To Skin Breakdown Amount of bleeding with debridement: Mild Bleeding Controlled with: Pressure Patient tolerated procedure: Patient tolerated procedure well Assessment/Plan Active Problems (Last Reviewed 07/17/20 @ 11:12 by Meagan Bowles Above-knee amputation of right lower extremity (Chronic) Chronic osteomyelitis, pelvis (Chronic) History of left below knee amputation (Chronic) History of tobacco use (Chronic) Severe protein-calorie malnutrition (Chronic) Right ischial pressure sore, stage 4 (Chronic) left ischial pressure sore, stage IV (Chronic) extending to the left femur Assessment: 1. Right ischial pressure sore with extension to perineal area, Stage IV. 2. Left ischial pressure sore with extension to the femur, Stage IV. 3. Paraplegia, longstanding. 4. History of MRSA. 5. History of osteomyelitis with multiple prior surgeries. 6. Smoker. 7. s/p right AKA (06/12/2020) in [place]. Plan: His pressure sore ulcers are stable. The recent positive cultures from 04/22/20 probably colonized and not invasive. Recent WBC is trending downward. He is afebrile. There is not enough of a reason at this time to proceed with IV antibiotics. Discussed with Dr. Chester from Infectious Diseases. If the situation were to worsen, then would proceed with IV antibitiotics through a PICC line. At the present time, the culture showed Morganella morganii, Pseudomonas aeroginosa, Streptococcus group F, and Bacteroides fragilis. He will continue Dakin's dressing changes alternating with Silver dressing changes. His right ischial ulcer is showing much improvement. Encourage nutritional supplementation with protein to help the healing process. Encouraged the patient to stop smoking as it may have deleterious effects on wound healing. Followup 4 weeks. His right AKA done on 06/12/20 in [place] is healing satisfactory. [id number]: [id number] Manisha musc/fascia 20 sq cm/< Add On Codes: [id number] Manisha musc/fascia add-on - x2
== END 2020-09-09 23:59 ==
LOC: WC 10:45
PROVIDERS: PCP Internal Medicine; Visit Provider Nurse Practitioner Family
DX: L89.224 Pressure ulcer of left hip, stage 4 (principal); L89.214 Pressure ulcer of right hip, stage 4; Z86.14 Personal history of Methicillin resistant Staphylococcus aureus infection; G82.20 Paraplegia, unspecified; F17.200 Nicotine dependence, unspecified, uncomplicated; Z89.611 Acquired absence of right leg above knee
CPT/HCPCS: 11043; 11046

== ENCOUNTER → 2020-09-30 10:02 | Outpatient (CLI) | payer MEDICARE, MEDICAID, SELFPAY ==
[2020-09-02 10:52] VITALS: BMI 19.8
== END ==
PROVIDERS: PCP Internal Medicine; Referring Provider Internal Medicine; Visit Provider Internal Medicine
DX: R00.0 Tachycardia, unspecified (principal); L89.314 Pressure ulcer of right buttock, stage 4; L89.324 Pressure ulcer of left buttock, stage 4; M86.659 Other chronic osteomyelitis, unspecified thigh; G82.20 Paraplegia, unspecified; Z86.14 Personal history of Methicillin resistant Staphylococcus aureus infection
CPT/HCPCS: 11043; 11046; 93225; 93226

== ENCOUNTER 2020-09-30 11:00 | Outpatient (RCR) | payer MEDICARE, MEDICAID, SELFPAY ==
[2020-09-10 00:20] VITALS: BP 94/58; PULSE 125; RESP 16; TEMP 36.2
[2020-09-30 10:40] VITALS: BP 100/66; PULSE 129; RESP 16; TEMP 35.5; BMI 19.8
--- NOTE | 2020-09-30 13:25 | PN.PCM_ITS ---
(1) Right ischial pressure sore, stage 4 Status: Chronic Code(s): L89.314 - Pressure ulcer of right buttock, stage 4 (2) Left ischial pressure sore Status: Chronic Code(s): L89.329 - Pressure ulcer of left buttock, unspecified stage (3) Chronic osteomyelitis, pelvis Status: Chronic Qualifiers: Code(s): M86.659 - Other chronic osteomyelitis, unspecified thigh (4) Severe protein-calorie malnutrition Status: Chronic Code(s): E43 - Unspecified severe protein-calorie malnutrition (5) Paraplegia at T4 level Status: Chronic Code(s): G82.20 - Paraplegia, unspecified Type of Wound Date of Service: 09/30/20 Chief Complaint: Bilateral ischial pressure sores, Stage IV. History of Wound: Surgery 04/08/20 - 1. Excision bleeding right ischial/perineal pressure sore, Stage IV. 2. Control of prostatic bleeding with electrocautery and Surgicel hemostat. Wound Care - Dakin's dressing changes alternated with Silver dressing changes. Patient has long standing bilateral ischial pressure sores, Stage IV, with the left side extending to the femoral head and the right side extending to the perineal area and the prostate. Surgery would entail quite extensive excision with amputations at a tertiary center. Patient does not want to pursue any heroic surgeries at this time since it is not a guarantee his pressure issues won't recur. With aggressive amputations, his already tenuous balance would be even more disrupted. Today he denies any fever. His appetite is ok. At the present time, we are providing conservative care on a monthly basis. He states his right leg gets in the way when transferring. He underwent a right AKA on 06/12/20 in [place]. Wound culture was done on 04/22/20. It showed Morganella morganii, Pseudomonas aeroginosa, Streptococcus group F, and Bacteroides fragilis. He has a lot of antibiotic allergies. His only real option is IV antibiotics. Dr. Chester also saw him at the [facility] and felt the wounds were colonized and held off on antibiotics at this time. If his clinical situation were to change, then would re-evaluate him for IV antibiotics at that time. Today he denies any fever. He states his appetite is ok. Progress of Wound: Stable. - Physical Exam Vital Signs Temp Pulse Resp BP 96 F L 129 H 16 100/66 09/30/20 10:40 09/30/20 10:40 09/30/20 10:40 09/30/20 10:40 General: Alert, Oriented x3, Cooperative HEENT: Atraumatic Oral: Moist Mucosa Lungs: Normal air movement Cardiovascular: Regular rate Extremities: Capillary Refill Less than 3 Seconds Skin: Ulcer/ Wound - Right ischial ulcer with healing skin in the center of ulcer, pink around the edges. Left ischial ulcer with increased slough. Wound Measurements and Assessment WC - Nurse 1 - General Ulcer Measurement Start: 09/30/20 10:40 Freq: Status: Active Protocol: Activity Type Activity Date Activity User E-Sign Co-Sign Detail Recorded Client Recorded Date Recorded By Document 09/30/20 10:40 [facility] [id number] 09/30/20 10:48 BMF 09/30/20 10:40 Wound Center Nurse 1 [Ulcer Assessment] #8 L Ischium -Current Size (cm) - Length 7 -Current Size (cm) - Width 6.9 -Current Size (cm) - Depth 0.1 -Total Square Cm 48.3 -Wound Margin Thickened & Rolled Under -Granulation Amt Medium (34-66%) -Granulation Quality Red -Necrosis Amt Medium (34-66%) -Necrotic Tissue Type Adherent Slough -Texture (Steffi-wound Skin Appearance) Assessed, Scarring -Color (Steffi-wound Skin Appearance) No Abnormality, Assessed -Temperature (Steffi-wound Skin No Abnormality Appearance) (Pt Warm) -Tenderness on Palpation (Steffi-wound No Skin Appearance) -Ulcer Cleansing Rinsed/ Irrigated with Saline -Foul Odor after Cleansing No #7 R Ischium -Current Size (cm) - Length 3.2 -Current Size (cm) - Width 1 -Current Size (cm) - Depth 4.7 -Total Square Cm 3.2 -Tunneling Position (O'clock) 11 -Tunneling Distance (cm) 4.7 -Exudate Amt Medium -Exudate Type Serosanguineous -Wound Margin Distinct, Outline Attached -Granulation Amt Medium (34-66%) -Granulation Quality Red -Necrosis Amt Medium (34-66%) -Necrotic Tissue Type Adherent Slough -Texture (Steffi-wound Skin Appearance) Assessed, Scarring -Color (Steffi-wound Skin Appearance) No Abnormality, Assessed -Temperature (Steffi-wound Skin No Abnormality Appearance) (Pt Warm) -Tenderness on Palpation (Steffi-wound No Skin Appearance) -Ulcer Cleansing Rinsed/ Irrigated with Saline -Foul Odor after Cleansing No WC - Nurse 2 - General Ulcer CM Notes Start: 09/30/20 10:40 Freq: Status: Active Protocol: Activity Type Activity Date Activity User E-Sign Co-Sign Detail Recorded Client Recorded Date Recorded By Document 09/30/20 11:27 DEBORAH [id number] 09/30/20 11:45 DEBORAH 09/30/20 11:27 Wound Center Nurse 2 [Procedure/Treatment] #8 L Ischium -Time 11:34 -Correct Patient Yes -Correct Side, Site, Position Yes -Correct Procedure Yes -Procedure Performed Yes -Type of Procedure Debridement -Clinical Debridement Muscle / Fascia -Tissue Removed Muscle,Fascia -Post Debridement (cm) - Length 6.5 -Post Debridement (cm) - Width 7 -Post Debridement (cm) - Depth 0.1 -Total Square (Post) (cm) 45.5 -Area of Debridement (cm) - Length 6.5 -Area of Debridement (cm) - Width 7 -Total Square (Area) (cm) 45.5 -Tunneling No -Undermining/Tunneling No -Circular Undermining No -Wound/Ulcer Outcome Not Healed -Ulcer Cleansing Rinsed/ Irrigated with Saline -Foul Odor after Cleansing No -Bioengineered Tissue No -Bleeding Controlled with Pressure,Silver Nitrate -Offloading No -Treatment Response Procedure Tolerated Well -Debridement - Muscle / Fascia, 1st Yes 20sq cm -Debridement, Muscle/Fascia, ea addt' 2 l 20sq cm or part thereof #7 R Ischium -Time 11:35 -Correct Patient Yes -Correct Side, Site, Position Yes -Correct Procedure Yes -Procedure Performed Yes -Type of Procedure Debridement -Clinical Debridement Muscle / Fascia -Tissue Removed Muscle,Fascia -Post Debridement (cm) - Length 1.2 -Post Debridement (cm) - Width 1 -Post Debridement (cm) - Depth 0.3 -Total Square (Post) (cm) 1.2 -Area of Debridement (cm) - Length 1.2 -Area of Debridement (cm) - Width 1 -Total Square (Area) (cm) 1.2 -Tunneling No -Undermining/Tunneling No -Circular Undermining No -Wound/Ulcer Outcome Not Healed -Ulcer Cleansing Rinsed/ Irrigated with Saline -Foul Odor after Cleansing No -Bioengineered Tissue No -Bleeding Controlled with Pressure -Offloading No -Treatment Response Procedure Tolerated Well -Debridement - Muscle / Fascia, 1st No 20sq cm [See Physician Procedure note for Specifics] Pain Scale: 0-10 Numeric [Pain] -Is Patient Pain Free? Yes WC - Nurse 3 - General Ulcer D/C NN Start: 09/30/20 10:40 Freq: Status: Active Protocol: Activity Type Activity Date Activity User E-Sign Co-Sign Detail Recorded Client Recorded Date Recorded By Document 09/30/20 11:51 DL [id number] 09/30/20 11:52 DL 09/30/20 11:51 Wound Care Nurse 3 [Wound Dressing] #8 L Ischium -Ulcer Cleansing Rinsed/ Irrigated with Saline -Foul Odor after Cleansing No -Primary Dressing Applied Aquacel AG 4x4 -Primary Dressing Covered/Secured Dry Gauze & with Roll Gauze, Secured with Tape -Aquacel AG 4x4 1 #7 R Ischium -Ulcer Cleansing Rinsed/ Irrigated with Saline -Foul Odor after Cleansing No -Other Dressing aquacel Ag -Primary Dressing Covered/Secured Dry Gauze, with Secured with Tape [Post Procedure Tolerated] -Treatment Response Procedure Tolerated Well Pain Scale: 0-10 Numeric [Pain] -Is Patient Pain Free? Yes - Visit Discharge [Visit Discharge Information] -Discharge Condition Stable -Ambulatory Status Wheelchair Musculoskeletal: No Tenderness to Palpation of Joints or Extremities Lymphatic: No Cervical, Supraclavicular, or Inguinal Adenopathy Neurological: Cranial nerves II-XII grossly intact Psych/Mental Status: Normal Affect, Appropriate Debridement Note Post-Debridement Measurements/Treatment WC - Nurse 2 - General Ulcer CM Notes Start: 09/30/20 10:40 Freq: Status: Active Protocol: Activity Type Activity Date Activity User E-Sign Co-Sign Detail Recorded Client Recorded Date Recorded By Document 09/30/20 11:27 DEBORAH [id number] 09/30/20 11:45 DEBORAH 09/30/20 11:27 Wound Center Nurse 2 #8 L Ischium -Time 11:34 -Correct Patient Yes -Correct Side, Site, Position Yes -Correct Procedure Yes -Procedure Performed Yes -Type of Procedure Debridement -Clinical Debridement Muscle / Fascia -Tissue Removed Muscle,Fascia -Post Debridement (cm) - Length 6.5 -Post Debridement (cm) - Width 7 -Post Debridement (cm) - Depth 0.1 -Total Square (Post) (cm) 45.5 -Area of Debridement (cm) - Length 6.5 -Area of Debridement (cm) - Width 7 -Total Square (Area) (cm) 45.5 -Tunneling No -Undermining/Tunneling No -Circular Undermining No -Wound/Ulcer Outcome Not Healed -Ulcer Cleansing Rinsed/ Irrigated with Saline -Foul Odor after Cleansing No -Bioengineered Tissue No -Bleeding Controlled with Pressure,Silver Nitrate -Offloading No -Treatment Response Procedure Tolerated Well -Debridement - Muscle / Fascia, 1st Yes 20sq cm -Debridement, Muscle/Fascia, ea addt'l 2 20sq cm or part thereof #7 R Ischium -Time 11:35 -Correct Patient Yes -Correct Side, Site, Position Yes -Correct Procedure Yes -Procedure Performed Yes -Type of Procedure Debridement -Clinical Debridement Muscle / Fascia -Tissue Removed Muscle,Fascia -Post Debridement (cm) - Length 1.2 -Post Debridement (cm) - Width 1 -Post Debridement (cm) - Depth 0.3 -Total Square (Post) (cm) 1.2 -Area of Debridement (cm) - Length 1.2 -Area of Debridement (cm) - Width 1 -Total Square (Area) (cm) 1.2 -Tunneling No -Undermining/Tunneling No -Circular Undermining No -Wound/Ulcer Outcome Not Healed -Ulcer Cleansing Rinsed/ Irrigated with Saline -Foul Odor after Cleansing No -Bioengineered Tissue No -Bleeding Controlled with Pressure -Offloading No -Treatment Response Procedure Tolerated Well -Debridement - Muscle / Fascia, 1st No 20sq cm Pain Scale: 0-10 Numeric Is Patient Pain Free? Yes WC - Nurse 3 - General Ulcer D/C NN Start: 09/30/20 10:40 Freq: Status: Active Protocol: Activity Type Activity Date Activity User E-Sign Co-Sign Detail Recorded Client Recorded Date Recorded By Document 09/30/20 11:51 DL [id number] 09/30/20 11:52 DL 09/30/20 11:51 Wound Care Nurse 3 #8 L Ischium -Ulcer Cleansing Rinsed/ Irrigated with Saline -Foul Odor after Cleansing No -Primary Dressing Applied Aquacel AG 4x4 -Primary Dressing Covered/Secured with Dry Gauze & Roll Gauze, Secured with Tape -Aquacel AG 4x4 1 #7 R Ischium -Ulcer Cleansing Rinsed/ Irrigated with Saline -Foul Odor after Cleansing No -Other Dressing aquacel Ag -Primary Dressing Covered/Secured with Dry Gauze, Secured with Tape Treatment Response Procedure Tolerated Well Pain Scale: 0-10 Numeric Is Patient Pain Free? Yes WC - Visit Discharge Discharge Condition Stable Ambulatory Status Wheelchair Wound debrided: Ischial ulcer Laterality: Left Type of Debridement: Excisional debridement Anesthesia Used: 5% Lidocaine Gel Depth: Down to and including healthy tissue, in the subcutaneous layer, to muscle Percentage of wound debrided: 100 Instrument Used: 7mm curette Tissue Removed: Subcutaneous tissue and slough into the muscle Severity: Fat Layer Exposed Amount of bleeding with debridement: Mild Bleeding Controlled with: Silver Nitrate - Silver nitrate ulced in 2 areas. Patient tolerated procedure well - Additional Wound Wound debrided: Ischial ulcer Laterality: Right Type of Debridement: Excisional debridement Anesthesia Used: 5% Lidocaine Gel Depth: Down to and including healthy tissue, in the subcutaneous layer, to muscle Percentage of wound debrided: 100 Instrument Used: 3mm curette Tissue Removed: Subcutaneous tissue and slough Severity: Limited To Skin Breakdown Amount of bleeding with debridement: Mild Bleeding Controlled with: Pressure, Compression and gauze Patient tolerated procedure: Patient tolerated procedure well Assessment/Plan Assessment: 1. Right ischial pressure sore with extension to perineal area, Stage IV. 2. Left ischial pressure sore with extension to the femur, Stage IV. 3. Paraplegia, longstanding. 4. History of MRSA. 5. History of osteomyelitis with multiple prior surgeries. 6. Smoker. 7. s/p right AKA (06/12/2020) in [place]. Plan: His pressure sore ulcers are stable. The recent positive cultures from 04/22/20 probably colonized and not invasive. Recent WBC is trending downward. He is afebrile. There is not enough of a reason at this time to proceed with IV antibiotics. Discussed with Dr. Chester from Infectious Disease. If the situation were to worsen, then would proceed with IV antibitiotics through a PICC line. At the present time, the culture showed Morganella morganii, Pseudomonas aeroginosa, Streptococcus group F, and Bacteroides fragilis. He will continue Dakin's dressing changes alternating with Silver dressing changes. His right ischial ulcer is showing much improvement. Encourage nutritional supplementation with protein to help the healing process. Encouraged the patient to stop smoking as it may have deleterious effects on wound healing. Followup 4 weeks. His right AKA done on 06/12/20 in [place] is healing satisfactory. [id number]: [id number] Manisha musc/fascia 20 sq cm/< Add On Codes: [id number] Manisha musc/fascia add-on - x2
== END 2020-10-10 23:59 ==
LOC: WC 11:00
PROVIDERS: PCP Internal Medicine; Visit Provider Nurse Practitioner Family
DX: L89.224 Pressure ulcer of left hip, stage 4 (principal); L89.214 Pressure ulcer of right hip, stage 4; Z86.14 Personal history of Methicillin resistant Staphylococcus aureus infection; G82.20 Paraplegia, unspecified; F17.200 Nicotine dependence, unspecified, uncomplicated; M86.659 Other chronic osteomyelitis, unspecified thigh; Z89.611 Acquired absence of right leg above knee
CPT/HCPCS: 11043; 11046

== ENCOUNTER → 2020-10-28 15:00 | Outpatient (CLI) | payer MEDICARE, MEDICAID, SELFPAY ==
[2020-09-30 10:40] VITALS: BMI 19.8
--- NOTE | 2020-10-28 15:03 | ECHOD_ITS ---
Reason For Study: AFIB/FLUTTER Procedure This was a 2D Doppler, Color Flow transthoracic echocardiogram. Exam performed in department. Left Ventricle Normal LV size. Left ventricular systolic function is normal. The estimated ejection fraction is 60 %. Stage 1 diastolic dysfunction. No regional wall motion abnormalities noted. Right Ventricle Normal RV size. Atria Normal left atrium. Normal right atrium. Mitral Valve Bileaflet diffuse mitral valve thickening. Mild mitral valve prolapse. Mild-Moderate (1-2+) posteriorly directed mitral valve insufficiency. Tricuspid Valve Normal tricuspid valve. Mild (1+) tricuspid valve insufficiency. Pulmonary artery systolic pressure is 30 mmHg. Aortic Valve Trisinus/trileaflet aortic valve. Pulmonic Valve Normal pulmonic valve. Great Vessels Normal aortic root. The pulmonary artery is normal size. Normal inferior vena cava. Pericardium/Pleural No pericardial effusion. MMode/2D Measurements & Calculations LVIDd: 5.0 cm IVSd: 1.1 cm Ao root diam: 3.4 cm LVIDs: 3.7 cm LVPWd: 1.0 cm RVDd: 3.5 cm FS: 26.4 % LAV(MOD-bp): 62.6 ml LA A4 area: 19.1 cm2 LA dimension(2D): 2.9 cm LAV(MOD-bp) Indexed: 39.5 ml/m2 LAV(MOD-sp2): 53.3 ml LAV(MOD-sp4): 64.2 ml RA A4 area: 9.3 cm2 Doppler Measurements & Calculations MV E max sixto: 54.6 cm/sec Lat Peak E' Sixto: 7.4 cm/sec Med Peak E' Sixto: 6.3 cm/sec MV A max sixto: 61.6 cm/sec E/E' lat: 7.4 E/E' med: 8.6 MV E/A: 0.89 PA V2 max: 89.1 cm/sec TR max sixto: 255.9 cm/sec TR max P.4 mmHg Interpretation Summary Normal LV size. Left ventricular systolic function is normal. The estimated ejection fraction is 60 %. Stage 1 diastolic dysfunction. Bileaflet diffuse mitral valve thickening. Mild mitral valve prolapse. Mild-Moderate (1-2+) posteriorly directed mitral valve insufficiency. Ordering Physician: Milton Mock Referring Physician: Evelyn Jose Performed By: Jocelin Zendejas, CARINE, RVT
== END ==
PROVIDERS: PCP Internal Medicine; Referring Provider Internal Medicine Cardiovascular Disease; Visit Provider Internal Medicine Cardiovascular Disease
DX: R00.2 Palpitations (principal)
CPT/HCPCS: 93306

== ENCOUNTER 2020-11-04 13:00 | Outpatient (RCR) | payer MEDICARE, MEDICAID, SELFPAY ==
[2020-10-11 00:19] VITALS: BP 100/66; PULSE 129; RESP 16; TEMP 35.5
--- NOTE | 2020-11-04 13:08 | PCM.WC.PN ---
(1) Left ischial pressure sore Status: Chronic Code(s): L89.329 - Pressure ulcer of left buttock, unspecified stage (2) Right ischial pressure sore, stage 4 Status: Chronic Code(s): L89.314 - Pressure ulcer of right buttock, stage 4 (3) Chronic osteomyelitis, pelvis Status: Chronic Qualifiers: Code(s): M86.659 - Other chronic osteomyelitis, unspecified thigh (4) Severe protein-calorie malnutrition Status: Chronic Code(s): E43 - Unspecified severe protein-calorie malnutrition (5) Paraplegia at T4 level Status: Chronic Code(s): G82.20 - Paraplegia, unspecified Type of Wound Date of Service: 11/04/20 Chief Complaint: Bilateral ischial pressure sores, Stage IV. History of Wound: Surgery 04/08/20 - 1. Excision bleeding right ischial/perineal pressure sore, Stage IV. 2. Control of prostatic bleeding with electrocautery and Surgicel hemostat. Wound Care - Dakin's dressing changes alternated with Silver dressing changes. Patient has long standing bilateral ischial pressure sores, Stage IV, with the left side extending to the femoral head and the right side extending to the perineal area and the prostate. Surgery would entail quite extensive excision with amputations at a tertiary center. Patient does not want to pursue any heroic surgeries at this time since it is not a guarantee his pressure issues won't recur. With aggressive amputations, his already tenuous balance would be even more disrupted. Today he denies any fever. His appetite is ok. At the present time, we are providing conservative care on a monthly basis. He states his right leg gets in the way when transferring. He underwent a right AKA on 06/12/20 in [place]. Wound culture was done on 04/22/20. It showed Morganella morganii, Pseudomonas aeroginosa, Streptococcus group F, and Bacteroides fragilis. He has a lot of antibiotic allergies. His only real option is IV antibiotics. Dr. Chester also saw him at the Wound Center and felt the wounds were colonized and held off on antibiotics at this time. If his clinical situation were to change, then would re-evaluate him for IV antibiotics at that time. Today he denies any fever. He states his appetite is ok. Progress of Wound: Stable. - Physical Exam Vital Signs Temp Pulse Resp BP 96 F L 129 H 16 100/66 10/11/20 00:19 10/11/20 00:19 10/11/20 00:19 10/11/20 00:19 General: Alert, Oriented x3, Cooperative HEENT: Atraumatic Oral: Moist Mucosa Lungs: Normal air movement Cardiovascular: Regular rate Extremities: Capillary Refill Less than 3 Seconds Skin: Ulcer/ Wound - Right and left ischial ulcers are stable. Left ulcer has a tunnel at 11:00 that is draining clear synovial fluid when patient moves his hips. Musculoskeletal: Tenderness Neurological: Cranial nerves II-XII grossly intact Psych/Mental Status: Normal Affect, Appropriate Debridement Note Wound debrided: Ischial ulcer Laterality: Right Type of Debridement: Excisional debridement Anesthesia Used: 5% Lidocaine Gel Depth: Down to and including healthy tissue, in the subcutaneous layer, to muscle Percentage of wound debrided: 100 Instrument Used: 5mm curette Tissue Removed: Subcutaneous tissue and slough into the muscle Severity: Fat Layer Exposed Amount of bleeding with debridement: Mild Bleeding Controlled with: Pressure Patient tolerated procedure well - Additional Wound Wound debrided: ischial ulcer Laterality: Left Type of Debridement: Excisional debridement Anesthesia Used: 4% Lidocaine Solution Depth: Down to and including healthy tissue, in the subcutaneous layer, to muscle Percentage of wound debrided: 100 Instrument Used: 7mm curette Tissue Removed: Subcutaneous tissue and slough Severity: Fat Layer Exposed Amount of bleeding with debridement: Mild Bleeding Controlled with: Pressure, Compression and gauze Patient tolerated procedure: Patient tolerated procedure well Assessment/Plan Assessment: 1. Right ischial pressure sore with extension to perineal area, Stage IV. 2. Left ischial pressure sore with extension to the femur, Stage IV. 3. Paraplegia, longstanding. 4. History of MRSA. 5. History of osteomyelitis with multiple prior surgeries. 6. Smoker. 7. s/p right AKA (06/12/2020) in [place]. Plan: Wound care - Silver alginate that he will alter with Dakin's dressing changes, or sometimes he washes with Dakin's and then places silver dressings. Encourage nutritional supplementation with protein to help the healing process. Encouraged the patient to stop smoking as it may have deleterious effects on wound healing. Followup 4 weeks. [id number]: [id number] Manisha musc/fascia 20 sq cm/< Add On Codes: [id number] Manisha musc/fascia add-on - x2
[2020-11-04 13:10] VITALS: BP 136/80; PULSE 118; TEMP 35.8; BMI 19.8
== END 2020-11-10 23:59 ==
LOC: WC 13:00
PROVIDERS: PCP Internal Medicine; Visit Provider Nurse Practitioner Family
DX: L89.224 Pressure ulcer of left hip, stage 4 (principal); L89.214 Pressure ulcer of right hip, stage 4; Z86.14 Personal history of Methicillin resistant Staphylococcus aureus infection; G82.20 Paraplegia, unspecified; F17.200 Nicotine dependence, unspecified, uncomplicated; M86.659 Other chronic osteomyelitis, unspecified thigh; Z89.611 Acquired absence of right leg above knee
CPT/HCPCS: 11043; 11046

== ENCOUNTER → 2020-11-29 13:59 | Outpatient (CLI) | payer MEDICARE, MEDICAID, SELFPAY ==
[2020-11-04 13:10] VITALS: BMI 19.8
== END ==
PROVIDERS: PCP Internal Medicine; Referring Provider Internal Medicine Gastroenterology; Visit Provider Internal Medicine Gastroenterology
DX: Z11.59 Encounter for screening for other viral diseases (principal)
CPT/HCPCS: 87635; C9803; U0005; U0003

== ENCOUNTER 2020-12-02 13:30 | Outpatient (RCR) | payer MEDICARE, MEDICAID, SELFPAY ==
[2020-11-11 00:20] VITALS: BP 136/80; PULSE 118; RESP 16; TEMP 35.8
[2020-12-02 13:45] VITALS: BP 115/70; PULSE 116; RESP 18; TEMP 36.4; BMI 19.8
--- NOTE | 2020-12-02 15:12 | PCM.WC.PN ---
(1) Left ischial pressure sore Status: Chronic Code(s): L89.329 - Pressure ulcer of left buttock, unspecified stage (2) Right ischial pressure sore, stage 4 Status: Chronic Code(s): L89.314 - Pressure ulcer of right buttock, stage 4 (3) Chronic osteomyelitis, pelvis Status: Chronic Qualifiers: Code(s): M86.659 - Other chronic osteomyelitis, unspecified thigh (4) Paraplegia at T4 level Status: Chronic Code(s): G82.20 - Paraplegia, unspecified (5) Severe protein-calorie malnutrition Status: Chronic Code(s): E43 - Unspecified severe protein-calorie malnutrition Type of Wound Date of Service: 12/02/20 Chief Complaint: Bilateral ischial pressure sores, Stage IV. History of Wound: Surgery 04/08/20 - 1. Excision bleeding right ischial/perineal pressure sore, Stage IV. 2. Control of prostatic bleeding with electrocautery and Surgicel hemostat. Wound Care - Dakin's dressing changes alternated with Silver dressing changes. Patient has long standing bilateral ischial pressure sores, Stage IV, with the left side extending to the femoral head and the right side extending to the perineal area and the prostate. Surgery would entail quite extensive excision with amputations at a tertiary center. Patient does not want to pursue any heroic surgeries at this time since it is not a guarantee his pressure issues won't recur. With aggressive amputations, his already tenuous balance would be even more disrupted. Today he denies any fever. His appetite is ok. At the present time, we are providing conservative care on a monthly basis. He states his right leg gets in the way when transferring. He underwent a right AKA on 06/12/20 in [place]. Wound culture was done on 04/22/20. It showed Morganella morganii, Pseudomonas aeroginosa, Streptococcus group F, and Bacteroides fragilis. He has a lot of antibiotic allergies. His only real option is IV antibiotics. Dr. Chester also saw him at the [facility] and felt the wounds were colonized and held off on antibiotics at this time. If his clinical situation were to change, then would re-evaluate him for IV antibiotics at that time. Today he states he has had increased drainage that is green from his left ulcer. It was cultured today, 11/01/20, depending on the results, it may necessitate the need for antibiotics or consulting ID. Today he denies any fever. He states his appetite is ok. Progress of Wound: Right ischial ulcer is stable. Left is having increased drainage that patient states is green. - Physical Exam Vital Signs Temp Pulse Resp BP 97.5 F L 116 H 18 115/70 12/02/20 13:45 12/02/20 13:45 12/02/20 13:45 12/02/20 13:45 General: Alert, Oriented x3 HEENT: Atraumatic Oral: Moist Mucosa Lungs: Normal air movement Cardiovascular: Regular rate Extremities: Capillary Refill Less than 3 Seconds Skin: Ulcer/ Wound - Left ischial ulcer with increased drainage. Wound culture obtained today. Right ulcer is stable, it may be smaller in size. Wound Measurements and Assessment WC - Nurse 1 - General Ulcer Measurement Start: 12/02/20 13:45 Freq: Status: Active Protocol: Activity Type Activity Date Activity User E-Sign Co-Sign Detail Recorded Client Recorded Date Recorded By Document 12/02/20 13:45 [facility] [id number] 12/02/20 13:56 [facility] 12/02/20 13:45 Wound Center Nurse 1 [Ulcer Assessment] #8 L Ischium -Combined with other wound No -Current Size (cm) - Length 6.5 -Current Size (cm) - Width 6.6 -Current Size (cm) - Depth 0.1 -Total Square Cm 42.90 -Photo Taken No -Epithelialization None Present -Tunneling No -Undermining/Tunneling No -Circular Undermining No -Exudate Amt Small -Exudate Type Serosanguineous -Wound Margin Thickened & Rolled Under -Granulation Amt Medium (34-66%) -Granulation Quality Red -Slough/Fibrin Yes -Necrosis Amt Medium (34-66%) -Necrotic Tissue Type Adherent Slough -Texture (Steffi-wound Skin Appearance) Assessed, Scarring -Moisture (Steffi-wound Skin Appearance Assessed, ) Maceration -Color (Steffi-wound Skin Appearance) Assessed,Palor -Temperature (Steffi-wound Skin No Abnormality Appearance) (Pt Warm) -Tenderness on Palpation (Steffi-wound No Skin Appearance) -Ulcer Cleansing soapy water -Foul Odor after Cleansing No #7 R Ischium -Combined with other wound No -Current Size (cm) - Length 3 -Current Size (cm) - Width 1.5 -Current Size (cm) - Depth 0.2 -Total Square Cm 4.5 -Photo Taken No -Epithelialization None Present -Tunneling No -Undermining/Tunneling No -Circular Undermining No -Exudate Amt Small -Exudate Type Serosanguineous -Wound Margin Thickened -Granulation Amt Large (67-100%) -Granulation Quality Red -Slough/Fibrin Yes -Necrosis Amt Small (1-33%) -Necrotic Tissue Type Adherent Slough -Texture (Steffi-wound Skin Appearance) Assessed, Scarring -Moisture (Steffi-wound Skin Appearance Assessed ) -Color (Steffi-wound Skin Appearance) Assessed -Temperature (Steffi-wound Skin No Abnormality Appearance) (Pt Warm) -Tenderness on Palpation (Steffi-wound No Skin Appearance) -Ulcer Cleansing soapy water -Foul Odor after Cleansing No WC - Nurse 2 - General Ulcer CM Notes Start: 12/02/20 13:45 Freq: Status: Active Protocol: Activity Type Activity Date Activity User E-Sign Co-Sign Detail Recorded Client Recorded Date Recorded By Document 12/02/20 14:24 [id number] 12/02/20 14:29 DEBORAH 12/02/20 14:24 Wound Center Nurse 2 [Procedure/Treatment] #8 L Ischium -Time 14:24 -Correct Patient Yes -Correct Side, Site, Position Yes -Correct Procedure Yes -Procedure Performed Yes -Type of Procedure Debridement -Clinical Debridement Muscle / Fascia -Tissue Removed Muscle,Fascia -Post Debridement (cm) - Length 6.5 -Post Debridement (cm) - Width 7.3 -Post Debridement (cm) - Depth 0.3 -Total Square (Post) (cm) 47.45 -Area of Debridement (cm) - Length 6.5 -Area of Debridement (cm) - Width 7.3 -Total Square (Area) (cm) 47.45 -Tunneling No -Undermining/Tunneling No -Circular Undermining No -Wound/Ulcer Outcome Not Healed -Ulcer Cleansing Rinsed/ Irrigated with Saline -Foul Odor after Cleansing No -Bioengineered Tissue No -Bleeding Controlled with Pressure -Offloading No -Treatment Response Procedure Tolerated Well -Debridement - Muscle / Fascia, 1st Yes 20sq cm -Debridement, Muscle/Fascia, ea addt' 2 l 20sq cm or part thereof #7 R Ischium -Time 14:24 -Correct Patient Yes -Correct Side, Site, Position Yes -Correct Procedure Yes -Procedure Performed Yes -Type of Procedure Debridement -Clinical Debridement Muscle / Fascia -Tissue Removed Muscle,Fascia -Post Debridement (cm) - Length 1 -Post Debridement (cm) - Width 2 -Post Debridement (cm) - Depth 0.3 -Total Square (Post) (cm) 2 -Area of Debridement (cm) - Length 1 -Area of Debridement (cm) - Width 2 -Total Square (Area) (cm) 2 -Tunneling No -Undermining/Tunneling No -Circular Undermining No -Wound/Ulcer Outcome Not Healed -Ulcer Cleansing Rinsed/ Irrigated with Saline -Foul Odor after Cleansing No -Bioengineered Tissue No -Bleeding Controlled with Pressure -Offloading No -Treatment Response Procedure Tolerated Well -Debridement - Muscle / Fascia, 1st No 20sq cm [See Physician Procedure note for Specifics] Pain Scale: 0-10 Numeric [Pain] -Is Patient Pain Free? Yes - Nurse 3 - General Ulcer D/C NN Start: 12/02/20 13:45 Freq: Status: Active Protocol: Activity Type Activity Date Activity User E-Sign Co-Sign Detail Recorded Client Recorded Date Recorded By Document 12/02/20 14:39 DL [id number] 12/02/20 14:41 DL 12/02/20 14:39 Wound Care Nurse 3 [Wound Dressing] #8 L Ischium -Ulcer Cleansing Rinsed/ Irrigated with Saline -Foul Odor after Cleansing No -Primary Dressing Applied Aquacel AG 4x4 -Primary Dressing Covered/Secured Dry Gauze, with Secured with Tape,Other -Other Covering abd -Aquacel AG 4x4 1 #7 R Ischium -Ulcer Cleansing Rinsed/ Irrigated with Saline -Foul Odor after Cleansing No -Primary Dressing Applied Aquacel AG 4x4 -Primary Dressing Covered/Secured Dry Gauze, with Secured with Tape,Other -Other Covering abd -Aquacel AG 4x4 0 [Post Procedure Tolerated] -Treatment Response Procedure Tolerated Well Pain Scale: 0-10 Numeric [Pain] -Is Patient Pain Free? Yes WC - Visit Discharge [Visit Discharge Information] -Discharge Condition Stable -Ambulatory Status Wheelchair -Transportation Private Auto Musculoskeletal: No Tenderness to Palpation of Joints or Extremities Neurological: Cranial nerves II-XII grossly intact Psych/Mental Status: Normal Affect, Appropriate Debridement Note Post-Debridement Measurements/Treatment WC - Nurse 2 - General Ulcer CM Notes Start: 12/02/20 13:45 Freq: Status: Active Protocol: Activity Type Activity Date Activity User E-Sign Co-Sign Detail Recorded Client Recorded Date Recorded By Document 12/02/20 14:24 DEBORAH [id number] 12/02/20 14:29 DEBORAH 12/02/20 14:24 Wound Center Nurse 2 #8 L Ischium -Time 14:24 -Correct Patient Yes -Correct Side, Site, Position Yes -Correct Procedure Yes -Procedure Performed Yes -Type of Procedure Debridement -Clinical Debridement Muscle / Fascia -Tissue Removed Muscle,Fascia -Post Debridement (cm) - Length 6.5 -Post Debridement (cm) - Width 7.3 -Post Debridement (cm) - Depth 0.3 -Total Square (Post) (cm) 47.45 -Area of Debridement (cm) - Length 6.5 -Area of Debridement (cm) - Width 7.3 -Total Square (Area) (cm) 47.45 -Tunneling No -Undermining/Tunneling No -Circular Undermining No -Wound/Ulcer Outcome Not Healed -Ulcer Cleansing Rinsed/ Irrigated with Saline -Foul Odor after Cleansing No -Bioengineered Tissue No -Bleeding Controlled with Pressure -Offloading No -Treatment Response Procedure Tolerated Well -Debridement - Muscle / Fascia, 1st Yes 20sq cm -Debridement, Muscle/Fascia, ea addt'l 2 20sq cm or part thereof #7 R Ischium -Time 14:24 -Correct Patient Yes -Correct Side, Site, Position Yes -Correct Procedure Yes -Procedure Performed Yes -Type of Procedure Debridement -Clinical Debridement Muscle / Fascia -Tissue Removed Muscle,Fascia -Post Debridement (cm) - Length 1 -Post Debridement (cm) - Width 2 -Post Debridement (cm) - Depth 0.3 -Total Square (Post) (cm) 2 -Area of Debridement (cm) - Length 1 -Area of Debridement (cm) - Width 2 -Total Square (Area) (cm) 2 -Tunneling No -Undermining/Tunneling No -Circular Undermining No -Wound/Ulcer Outcome Not Healed -Ulcer Cleansing Rinsed/ Irrigated with Saline -Foul Odor after Cleansing No -Bioengineered Tissue No -Bleeding Controlled with Pressure -Offloading No -Treatment Response Procedure Tolerated Well -Debridement - Muscle / Fascia, 1st No 20sq cm Pain Scale: 0-10 Numeric Is Patient Pain Free? Yes WC - Nurse 3 - General Ulcer D/C NN Start: 12/02/20 13:45 Freq: Status: Active Protocol: Activity Type Activity Date Activity User E-Sign Co-Sign Detail Recorded Client Recorded Date Recorded By Document 12/02/20 14:39 DL [id number] 12/02/20 14:41 DL 12/02/20 14:39 Wound Care Nurse 3 #8 L Ischium -Ulcer Cleansing Rinsed/ Irrigated with Saline -Foul Odor after Cleansing No -Primary Dressing Applied Aquacel AG 4x4 -Primary Dressing Covered/Secured with Dry Gauze, Secured with Tape,Other -Other Covering abd -Aquacel AG 4x4 1 #7 R Ischium -Ulcer Cleansing Rinsed/ Irrigated with Saline -Foul Odor after Cleansing No -Primary Dressing Applied Aquacel AG 4x4 -Primary Dressing Covered/Secured with Dry Gauze, Secured with Tape,Other -Other Covering abd -Aquacel AG 4x4 0 Treatment Response Procedure Tolerated Well Pain Scale: 0-10 Numeric Is Patient Pain Free? Yes WC - Visit Discharge Discharge Condition Stable Ambulatory Status Wheelchair Transportation Private Auto Wound debrided: ischial ulcer Laterality: Left Wound Grade/Stage: Stage IV Type of Debridement: Excisional debridement Anesthesia Used: 4% Lidocaine Solution Depth: Down to and including healthy tissue, in the subcutaneous layer, to muscle Percentage of wound debrided: 100 Instrument Used: 7mm curette Tissue Removed: Subcutaneous tissue and slough, into the muscle. Severity: Fat Layer Exposed Amount of bleeding with debridement: Mild Bleeding Controlled with: Pressure Patient tolerated procedure well - Additional Wound Wound debrided: Ischial ulcer Laterality: Right Wound Grade/Stage: Stage IV Type of Debridement: Excisional debridement Anesthesia Used: 4% Lidocaine Solution Depth: Down to and including healthy tissue, in the subcutaneous layer Percentage of wound debrided: 100 Instrument Used: 3mm curette Tissue Removed: Subcutaneous tissue and slough Severity: Fat Layer Exposed Amount of bleeding with debridement: Mild Bleeding Controlled with: Pressure Patient tolerated procedure: Patient tolerated procedure well Assessment/Plan Assessment: 1. Right ischial pressure sore with extension to perineal area, Stage IV. 2. Left ischial pressure sore with extension to the femur, Stage IV. 3. Paraplegia, longstanding. 4. History of MRSA. 5. History of osteomyelitis with multiple prior surgeries. 6. Smoker. 7. s/p right AKA (06/12/2020) in [place]. Plan: Wound care - Silver alginate that he will alter with Dakin's dressing changes, or sometimes he washes with Dakin's and then places silver dressings. Obtained a wound culture of the left ulcer due to the increased drainage that he states is green, coming from the ulcer. A positive culture may necessitate the need for treatment with antibiotics or possibly consulting ID. Encourage nutritional supplementation with protein to help the healing process. Encouraged the patient to stop smoking as it may have deleterious effects on wound healing. Followup 4 weeks. [id number]: [id number] Manisha musc/fascia 20 sq cm/< Add On Codes: [id number] Manisha musc/fascia add-on - x2
== END 2020-12-08 23:59 ==
LOC: WC 13:30
PROVIDERS: PCP Internal Medicine; Visit Provider Nurse Practitioner Family
DX: L89.224 Pressure ulcer of left hip, stage 4 (principal); L89.214 Pressure ulcer of right hip, stage 4; G82.20 Paraplegia, unspecified; F17.200 Nicotine dependence, unspecified, uncomplicated; Z86.14 Personal history of Methicillin resistant Staphylococcus aureus infection; Z89.611 Acquired absence of right leg above knee
CPT/HCPCS: 11043; 11046; 87070; 87075; 87077; 87186; 87205

== ENCOUNTER 2020-12-30 13:30 | Outpatient (RCR) | payer MEDICARE, MEDICAID, SELFPAY ==
[2020-12-09 00:19] VITALS: BP 115/70; PULSE 116; RESP 18; TEMP 36.4
[2020-12-30 13:33] VITALS: BP 131/79; PULSE 105; RESP 18; TEMP 36.3; BMI 19.8
--- NOTE | 2020-12-30 15:41 | PN.PCM_ITS ---
(1) Right ischial pressure sore, stage 4 Status: Chronic Code(s): L89.314 - Pressure ulcer of right buttock, stage 4 (2) Pressure sore of left ischium, stage 4 Status: Acute Code(s): L89.324 - Pressure ulcer of left buttock, stage 4 (3) Chronic osteomyelitis, pelvis Status: Chronic Qualifiers: Code(s): M86.659 - Other chronic osteomyelitis, unspecified thigh (4) Paraplegia at T4 level Status: Chronic Code(s): G82.20 - Paraplegia, unspecified Type of Wound Date of Service: 01/02/21 Chief Complaint: Bilateral ischial pressure sores, Stage IV. History of Wound: Surgery 04/08/20 - 1. Excision bleeding right ischia l/perineal pressure sore, Stage IV. 2. Control of prostatic bleeding with electrocautery and Surgicel hemostat. Wound Care - Dakin's dressing changes alternated with Silver dressing changes. Patient has long standing bilateral ischial pressure sores, Stage IV, with the left side extending to the femoral head and the right side extending to the perineal area and the prostate. Surgery would entail quite extensive excision with amputations at a tertiary center. Patient does not want to pursue any heroic surgeries at this time since it is not a guarantee his pressure issues won't recur. With aggressive amputations, his already tenuous balance would be even more disrupted. Today he denies any fever. His appetite is ok. At the present time, we are providing conservative care on a monthly basis. He states his right leg gets in the way when transferring. He underwent a right AKA on 06/12/20 in [place]. Wound culture was done on 04/22/20. It showed Morganella morganii, Pseudomonas aeroginosa, Streptococcus group F, and Bacteroides fragilis. He has a lot of antibiotic allergies. His only real option is IV antibiotics. Dr. Chester also saw him at the [facility] and felt the wounds were colonized and held off on antibiotics at this time. If his clinical situation were to change, then would re-evaluate him for IV antibiotics at that time. Wound culture from 11/01/20 was positive for MRSA, E. coli, Proteus Mirabilis. He is being treated with Augmentin and doxycycline. Today he denies any fever. He states his appetite is ok. Progress of Wound: Right ischial ulcer is stable. Left is having increased drainage that patient states is green. - Physical Exam Vital Signs Temp Pulse Resp BP 97.3 F L 105 H 18 131/79 H 12/30/20 13:33 12/30/20 13:33 12/30/20 13:33 12/30/20 13:33 General: Alert, Oriented x3, Cooperative HEENT: Atraumatic Oral: Moist Mucosa Lungs: Normal air movement Cardiovascular: Regular rate Extremities: No edema, Capillary Refill Less than 3 Seconds Skin: Ulcer/ Wound - Right ischial ulcer and left ischial ulcers are stable. Less drainage compared to last visit since starting antibiotics. Wound Measurements and Assessment WC - Nurse 1 - General Ulcer Measurement Start: 12/30/20 13:29 Freq: Status: Active Protocol: Activity Type Activity Date Activity User E-Sign Co-Sign Detail Recorded Client Recorded Date Recorded By Document 12/30/20 13:33 DL [id number] 12/30/20 13:40 DL 12/30/20 13:33 Wound Center Nurse 1 [Ulcer Assessment] #8 L Ischium -Current Size (cm) - Length 5.9 -Current Size (cm) - Width 5 -Current Size (cm) - Depth 0.5 -Total Square Cm 29.5 -Photo Taken No -Exudate Amt Medium -Exudate Type Serosanguineous -Wound Margin Thickened & Rolled Under -Granulation Amt Medium (34-66%) -Granulation Quality [place] -Necrosis Amt Medium (34-66%) -Necrotic Tissue Type Adherent Slough -Texture (Steffi-wound Skin Appearance) Scarring -Moisture (Steffi-wound Skin Appearance No Abnormality ) -Color (Steffi-wound Skin Appearance) No Abnormality -Temperature (Steffi-wound Skin No Abnormality Appearance) (Pt Warm) -Tenderness on Palpation (Steffi-wound No Skin Appearance) -Ulcer Cleansing Rinsed/ Irrigated with Saline -Foul Odor after Cleansing No -Anesthetic Used 4% Lidocaine Solution #7 R Ischium -Current Size (cm) - Length 0.8 -Current Size (cm) - Width 2 -Current Size (cm) - Depth 0.1 -Total Square Cm 1.6 -Photo Taken No -Exudate Amt Medium -Exudate Type Serosanguineous -Wound Margin Thickened & Rolled Under -Granulation Amt Large (67-100%) -Granulation Quality Red -Necrosis Amt Small (1-33%) -Necrotic Tissue Type Adherent Slough -Structure Exposed N/A -Texture (Steffi-wound Skin Appearance) Scarring -Moisture (Steffi-wound Skin Appearance No Abnormality ) -Color (Steffi-wound Skin Appearance) No Abnormality -Temperature (Steffi-wound Skin No Abnormality Appearance) (Pt Warm) -Tenderness on Palpation (Steffi-wound No Skin Appearance) -Ulcer Cleansing Rinsed/ Irrigated with Saline -Anesthetic Used 4% Lidocaine Solution WC - Nurse 2 - General Ulcer CM Notes Start: 12/30/20 13:29 Freq: Status: Active Protocol: Activity Type Activity Date Activity User E-Sign Co-Sign Detail Recorded Client Recorded Date Recorded By Document 12/30/20 14:05 DEBORAH [id number] 12/30/20 14:15 DEBORAH 12/30/20 14:05 Wound Center Nurse 2 [Procedure/Treatment] #8 L Ischium -Time 14:05 -Correct Patient Yes -Correct Side, Site, Position Yes -Correct Procedure Yes -Procedure Performed Yes -Type of Procedure Debridement -Clinical Debridement Muscle / Fascia -Tissue Removed Muscle -Post Debridement (cm) - Length 5 -Post Debridement (cm) - Width 7 -Post Debridement (cm) - Depth 0.3 -Total Square (Post) (cm) 35 -Area of Debridement (cm) - Length 5 -Area of Debridement (cm) - Width 7 -Total Square (Area) (cm) 35 -Tunneling No -Undermining/Tunneling No -Circular Undermining No -Wound/Ulcer Outcome Not Healed -Ulcer Cleansing Rinsed/ Irrigated with Saline -Foul Odor after Cleansing No -Bioengineered Tissue No -Bleeding Controlled with Pressure -Offloading No -Treatment Response Procedure Tolerated Well -Debridement - Muscle / Fascia, 1st Yes 20sq cm -Debridement, Muscle/Fascia, ea addt' 1 l 20sq cm or part thereof #7 R Ischium -Time 14:08 -Correct Patient Yes -Correct Side, Site, Position Yes -Correct Procedure Yes -Procedure Performed Yes -Type of Procedure Debridement -Clinical Debridement Muscle / Fascia -Tissue Removed Muscle -Post Debridement (cm) - Length 0.7 -Post Debridement (cm) - Width 1.7 -Post Debridement (cm) - Depth 0.3 -Total Square (Post) (cm) 1.19 -Area of Debridement (cm) - Length 0.7 -Area of Debridement (cm) - Width 1.7 -Total Square (Area) (cm) 1.19 -Tunneling No -Undermining/Tunneling No -Circular Undermining No -Wound/Ulcer Outcome Not Healed -Ulcer Cleansing Rinsed/ Irrigated with Saline -Foul Odor after Cleansing No -Bioengineered Tissue No -Bleeding Controlled with Pressure -Offloading No -Treatment Response Procedure Tolerated Well -Debridement - Muscle / Fascia, 1st No 20sq cm [See Physician Procedure note for Specifics] Pain Scale: 0-10 Numeric [Pain] -Is Patient Pain Free? Yes - Nurse 3 - General Ulcer D/C NN Start: 12/30/20 13:29 Freq: Status: Active Protocol: Activity Type Activity Date Activity User E-Sign Co-Sign Detail Recorded Client Recorded Date Recorded By Document 12/30/20 14:29 [facility] [id number] 12/30/20 14:30 [facility] 12/30/20 14:29 Wound Care Nurse 3 [Wound Dressing] #8 L Ischium -Ulcer Cleansing Rinsed/ Irrigated with Saline -Foul Odor after Cleansing No -Primary Dressing Applied Aquacel AG 4x4 -Primary Dressing Covered/Secured Secured with with Tape,Other -Other Covering ABD -Aquacel AG 4x4 1 #7 R Ischium -Ulcer Cleansing Rinsed/ Irrigated with Saline -Foul Odor after Cleansing No -Primary Dressing Applied Aquacel AG 4x4 -Primary Dressing Covered/Secured Secured with with Tape,Other -Other Covering ABD -Aquacel AG 4x4 0 [Post Procedure Tolerated] -Treatment Response Procedure Tolerated Well Pain Scale: 0-10 Numeric [Pain] -Is Patient Pain Free? Yes - Visit Discharge [Visit Discharge Information] -Discharge Condition Stable -Ambulatory Status Wheelchair -Transportation Private Auto [Facility Notification] -Facility Type Certified [facility] Care Facility Musculoskeletal: No Tenderness to Palpation of Joints or Extremities Neurological: Cranial nerves II-XII grossly intact Psych/Mental Status: Normal Affect, Appropriate Debridement Note Post-Debridement Measurements/Treatment - Nurse 2 - General Ulcer CM Notes Start: 12/30/20 13:29 Freq: Status: Active Protocol: Activity Type Activity Date Activity User E-Sign Co-Sign Detail Recorded Client Recorded Date Recorded By Document 12/30/20 14:05 [id number] 03/22/21 14:15 JF 12/30/20 14:05 Wound Center Nurse 2 #8 L Ischium -Time 14:05 -Correct Patient Yes -Correct Side, Site, Position Yes -Correct Procedure Yes -Procedure Performed Yes -Type of Procedure Debridement -Clinical Debridement Muscle / Fascia -Tissue Removed Muscle -Post Debridement (cm) - Length 5 -Post Debridement (cm) - Width 7 -Post Debridement (cm) - Depth 0.3 -Total Square (Post) (cm) 35 -Area of Debridement (cm) - Length 5 -Area of Debridement (cm) - Width 7 -Total Square (Area) (cm) 35 -Tunneling No -Undermining/Tunneling No -Circular Undermining No -Wound/Ulcer Outcome Not Healed -Ulcer Cleansing Rinsed/ Irrigated with Saline -Foul Odor after Cleansing No -Bioengineered Tissue No -Bleeding Controlled with Pressure -Offloading No -Treatment Response Procedure Tolerated Well -Debridement - Muscle / Fascia, 1st Yes 20sq cm -Debridement, Muscle/Fascia, ea addt'l 1 20sq cm or part thereof #7 R Ischium -Time 14:08 -Correct Patient Yes -Correct Side, Site, Position Yes -Correct Procedure Yes -Procedure Performed Yes -Type of Procedure Debridement -Clinical Debridement Muscle / Fascia -Tissue Removed Muscle -Post Debridement (cm) - Length 0.7 -Post Debridement (cm) - Width 1.7 -Post Debridement (cm) - Depth 0.3 -Total Square (Post) (cm) 1.19 -Area of Debridement (cm) - Length 0.7 -Area of Debridement (cm) - Width 1.7 -Total Square (Area) (cm) 1.19 -Tunneling No -Undermining/Tunneling No -Circular Undermining No -Wound/Ulcer Outcome Not Healed -Ulcer Cleansing Rinsed/ Irrigated with Saline -Foul Odor after Cleansing No -Bioengineered Tissue No -Bleeding Controlled with Pressure -Offloading No -Treatment Response Procedure Tolerated Well -Debridement - Muscle / Fascia, 1st No 20sq cm Pain Scale: 0-10 Numeric Is Patient Pain Free? Yes WC - Nurse 3 - General Ulcer D/C NN Start: 12/30/20 13:29 Freq: Status: Active Protocol: Activity Type Activity Date Activity User E-Sign Co-Sign Detail Recorded Client Recorded Date Recorded By Document 12/30/20 14:29 [facility] [id number] 12/30/20 14:30 [facility] 12/30/20 14:29 Wound Care Nurse 3 #8 L Ischium -Ulcer Cleansing Rinsed/ Irrigated with Saline -Foul Odor after Cleansing No -Primary Dressing Applied Aquacel AG 4x4 -Primary Dressing Covered/Secured with Secured with Tape,Other -Other Covering ABD -Aquacel AG 4x4 1 #7 R Ischium -Ulcer Cleansing Rinsed/ Irrigated with Saline -Foul Odor after Cleansing No -Primary Dressing Applied Aquacel AG 4x4 -Primary Dressing Covered/Secured with Secured with Tape,Other -Other Covering ABD -Aquacel AG 4x4 0 Treatment Response Procedure Tolerated Well Pain Scale: 0-10 Numeric Is Patient Pain Free? Yes WC - Visit Discharge Discharge Condition Stable Ambulatory Status Wheelchair Transportation Private [facility] Facility Type Residential Care Facility Laterality: Right Wound Grade/Stage: ischial ulcer Type of Debridement: Excisional debridement Anesthesia Used: 5% Lidocaine Gel Depth: Down to and including healthy tissue, in the subcutaneous layer, to muscle Percentage of wound debrided: 100 Instrument Used: 5mm curette Tissue Removed: Subcutaneous tissue and slough into the muscle Severity: Fat Layer Exposed Amount of bleeding with debridement: Mild Bleeding Controlled with: Pressure Patient tolerated procedure well - Additional Wound Wound debrided: Ischial ulcer Laterality: Left Type of Debridement: Excisional debridement Anesthesia Used: 5% Lidocaine Gel Depth: Down to and including healthy tissue, in the subcutaneous layer, to muscle Percentage of wound debrided: 100 Instrument Used: 7mm curette Tissue Removed: Subcutaneous tissue and slough into the muscle Severity: Fat Layer Exposed Amount of bleeding with debridement: Mild Bleeding Controlled with: Pressure Assessment/Plan Active Problems (Last Reviewed 11/29/20 @ 14:00 by Meagan Rhoades) Pressure sore of left ischium, stage 4 (Acute) Paraplegia at T4 level (Chronic) Right ischial pressure sore, stage 4 (Chronic) Chronic osteomyelitis, pelvis (Chronic) Assessment: 1. Right ischial pressure sore with extension to perineal area, Stage IV. 2. Left ischial pressure sore with extension to the femur, Stage IV. 3. Paraplegia, longstanding. 4. History of MRSA. 5. History of osteomyelitis with multiple prior surgeries. 6. Smoker. 7. s/p right AKA (06/12/2020) in [place]. Plan: Wound care - Silver alginate that he will alter with Dakin's dressing changes, or sometimes he washes with Dakin's and then places silver dressings. Wound culture from 11/01/20 was positive for MRSA, E. coli, Proteus Mirabilis. He is being treated with Augmentin and doxycycline. He is tolerating the antibiotics well. Encourage nutritional supplementation with protein to help the healing process. Encouraged the patient to stop smoking as it may have deleterious effects on wound healing. Followup 4 weeks. [id number]: [id number] Manisha musc/fascia 20 sq cm/< Add On Codes: [id number] Manisha musc/fascia add-on - x1
== END 2021-01-08 23:59 ==
LOC: WC 13:30
PROVIDERS: PCP Internal Medicine; Visit Provider Nurse Practitioner Family
DX: L89.224 Pressure ulcer of left hip, stage 4 (principal); L89.214 Pressure ulcer of right hip, stage 4; Z86.14 Personal history of Methicillin resistant Staphylococcus aureus infection; G82.20 Paraplegia, unspecified; M86.68 Other chronic osteomyelitis, other site; Z89.611 Acquired absence of right leg above knee; F17.200 Nicotine dependence, unspecified, uncomplicated
CPT/HCPCS: 11043; 11046

== ENCOUNTER 2021-01-20 13:30 | Outpatient (RCR) | payer MEDICARE, MEDICAID, SELFPAY ==
[2021-01-09 00:30] VITALS: BP 131/79; PULSE 105; RESP 18; TEMP 36.3
[2021-01-20 13:35] VITALS: BP 118/66; PULSE 108; RESP 18; TEMP 36.3; BMI 19.8
--- NOTE | 2021-01-20 14:15 | PCM.WC.PN ---
(1) Pressure sore of left ischium, stage 4 Status: Acute Code(s): L89.324 - Pressure ulcer of left buttock, stage 4 (2) Right ischial pressure sore, stage 4 Status: Chronic Code(s): L89.314 - Pressure ulcer of right buttock, stage 4 (3) Paraplegia at T4 level Status: Chronic Code(s): G82.20 - Paraplegia, unspecified (4) Chronic osteomyelitis, pelvis Status: Chronic Qualifiers: Code(s): M86.659 - Other chronic osteomyelitis, unspecified thigh Type of Wound Date of Service: 01/20/21 Chief Complaint: Bilateral ischial pressure sores, Stage IV. History of Wound: Surgery 04/08/20 - 1. Excision bleeding right ischial/perineal pressure sore, Stage IV. 2. Control of prostatic bleeding with electrocautery and Surgicel hemostat. Wound Care - Rinse ulcers with Dakin's solution and then cover Silver alginate dressing covered with gauze daily. Woun culture obtained 01/20/21. Patient has long standing bilateral ischial pressure sores, Stage IV, with the left side extending to the femoral head and the right side extending to the perineal area and the prostate. Surgery would entail quite extensive excision with amputations at a tertiary center. Patient does not want to pursue any heroic surgeries at this time since it is not a guarantee his pressure issues won't recur. With aggressive amputations, his already tenuous balance would be even more disrupted. Today he denies any fever. His appetite is ok. At the present time, we are providing conservative care on a monthly basis. He states his right leg gets in the way when transferring. He underwent a right AKA on 06/12/20 in [place]. Wound culture was done on 04/22/20. It showed Morganella morganii, Pseudomonas aeroginosa, Streptococcus group F, and Bacteroides fragilis. He has a lot of antibiotic allergies. His only real option is IV antibiotics. Dr. Chester also saw him at the [facility] and felt the wounds were colonized and held off on antibiotics at this time. If his clinical situation were to change, then would re-evaluate him for IV antibiotics at that time. Wound culture from 11/01/20 was positive for MRSA, E. coli, Proteus Mirabilis. He is being treated with Augmentin and doxycycline. Today he denies any fever. He states his appetite is ok. Progress of Wound: Right ischial pressure sore is having increased drainage. Left ischial pressure sore is stable. - Physical Exam Vital Signs Temp Pulse Resp BP 97.4 F L 108 H 18 118/66 01/20/21 13:35 01/20/21 13:35 01/20/21 13:35 01/20/21 13:35 General: Alert, Oriented x3, Cooperative HEENT: Atraumatic Oral: Moist Mucosa Lungs: Normal air movement Cardiovascular: Regular rate Extremities: No edema, Capillary Refill Less than 3 Seconds Skin: Ulcer/ Wound - Left ischial ulcer is stable, pink. Left ulcer is now a cluster with healed skin in the center. Wound Measurements and Assessment WC - Nurse 1 - General Ulcer Measurement Start: 01/20/21 13:35 Freq: Status: Active Protocol: Activity Type Activity Date Activity User E-Sign Co-Sign Detail Recorded Client Recorded Date Recorded By Document 01/20/21 13:35 DL [id number] 01/20/21 13:46 DL 01/20/21 13:35 Wound Center Nurse 1 [Ulcer Assessment] #8 L Ischium -Current Size (cm) - Length 6 -Current Size (cm) - Width 6 -Current Size (cm) - Depth 0.4 -Total Square Cm 36 -Photo Taken No -Exudate Amt Small -Exudate Type Serosanguineous -Wound Margin Thickened & Rolled Under -Granulation Amt Medium (34-66%) -Granulation Quality [address] -Necrosis Amt Medium (34-66%) -Necrotic Tissue Type Adherent Slough -Texture (Steffi-wound Skin Appearance) Scarring -Moisture (Steffi-wound Skin Appearance Maceration ) -Color (Steffi-wound Skin Appearance) No Abnormality -Temperature (Steffi-wound Skin No Abnormality Appearance) (Pt Warm) -Tenderness on Palpation (Steffi-wound No Skin Appearance) -Ulcer Cleansing Wound Cleanser -Foul Odor after Cleansing No -Anesthetic Used 4% Lidocaine Solution #7 R Ischium -Current Size (cm) - Length 2.8 -Current Size (cm) - Width 1.5 -Current Size (cm) - Depth 1.1 -Total Square Cm 4.20 -Photo Taken No -Exudate Amt Small -Exudate Type Serosanguineous -Wound Margin Thickened & Rolled Under -Granulation Amt Medium (34-66%) -Granulation Quality Red -Necrosis Amt Medium (34-66%) -Necrotic Tissue Type Adherent Slough -Structure Exposed N/A -Texture (Steffi-wound Skin Appearance) Scarring -Moisture (Steffi-wound Skin Appearance Maceration ) -Color (Steffi-wound Skin Appearance) No Abnormality -Temperature (Steffi-wound Skin No Abnormality Appearance) (Pt Warm) -Tenderness on Palpation (Steffi-wound No Skin Appearance) -Ulcer Cleansing Wound Cleanser -Foul Odor after Cleansing No -Anesthetic Used 4% Lidocaine Solution WC - Nurse 2 - General Ulcer CM Notes Start: 01/20/21 13:35 Freq: Status: Active Protocol: Activity Type Activity Date Activity User E-Sign Co-Sign Detail Recorded Client Recorded Date Recorded By Document 01/20/21 13:58 DEBORAH [id number] 01/20/21 14:11 DEBORAH 01/20/21 13:58 Wound Center Nurse 2 [Procedure/Treatment] #8 L Ischium -Time 13:58 -Correct Patient Yes -Correct Side, Site, Position Yes -Correct Procedure Yes -Procedure Performed Yes -Type of Procedure Debridement -Clinical Debridement Muscle / Fascia -Tissue Removed Muscle,Fascia -Post Debridement (cm) - Length 6.5 -Post Debridement (cm) - Width 6.5 -Post Debridement (cm) - Depth 0.5 -Total Square (Post) (cm) 42.25 -Area of Debridement (cm) - Length 6.5 -Area of Debridement (cm) - Width 6.5 -Total Square (Area) (cm) 42.25 -Tunneling No -Undermining/Tunneling No -Circular Undermining No -Wound/Ulcer Outcome Not Healed -Ulcer Cleansing Rinsed/ Irrigated with Saline -Foul Odor after Cleansing No -Bioengineered Tissue No -Bleeding Controlled with Pressure -Offloading No -Treatment Response Procedure Tolerated Well -Debridement - Muscle / Fascia, 1st Yes 20sq cm -Debridement, Muscle/Fascia, ea addt' 2 l 20sq cm or part thereof #7 R Ischium -Time 13:59 -Correct Patient Yes -Correct Side, Site, Position Yes -Correct Procedure Yes -Procedure Performed Yes -Type of Procedure Debridement -Clinical Debridement Muscle / Fascia -Tissue Removed Muscle,Fascia -Post Debridement (cm) - Length 3.5 -Post Debridement (cm) - Width 2 -Post Debridement (cm) - Depth 0.3 -Total Square (Post) (cm) 7.0 -Area of Debridement (cm) - Length 3.5 -Area of Debridement (cm) - Width 2 -Total Square (Area) (cm) 7.0 -Tunneling No -Undermining/Tunneling No -Circular Undermining No -Wound/Ulcer Outcome Not Healed -Ulcer Cleansing Rinsed/ Irrigated with Saline -Foul Odor after Cleansing No -Bioengineered Tissue No -Bleeding Controlled with Pressure -Offloading No -Treatment Response Procedure Tolerated Well -Debridement - Subq, 1st 20sq cm No -Debridement - Muscle / Fascia, 1st No 20sq cm [See Physician Procedure note for Specifics] WC - Nurse 3 - General Ulcer D/C NN Start: 01/20/21 13:35 Freq: Status: Active Protocol: Activity Type Activity Date Activity User E-Sign Co-Sign Detail Recorded Client Recorded Date Recorded By Document 01/20/21 14:15 [facility] [id number] 01/20/21 14:15 [facility] 01/20/21 14:15 Wound Care Nurse 3 [Wound Dressing] #8 L Ischium -Ulcer Cleansing Rinsed/ Irrigated with Saline -Foul Odor after Cleansing No -Primary Dressing Applied Aquacel AG 4x4 -Primary Dressing Covered/Secured Secured with with Tape,Other -Other Covering abd -Aquacel AG 4x4 1 #7 R Ischium -Ulcer Cleansing Rinsed/ Irrigated with Saline -Foul Odor after Cleansing No -Primary Dressing Applied Aquacel AG 4x4 -Primary Dressing Covered/Secured Secured with with Tape,Other -Other Covering abd -Aquacel AG 4x4 0 [Post Procedure Tolerated] -Treatment Response Procedure Tolerated Well Pain Scale: 0-10 Numeric [Pain] -Is Patient Pain Free? Yes WC - Visit Discharge [Visit Discharge Information] -Discharge Condition Stable -Ambulatory Status Wheelchair Musculoskeletal: No Tenderness to Palpation of Joints or Extremities Neurological: Cranial nerves II-XII grossly intact Psych/Mental Status: Normal Affect, Appropriate Debridement Note Post-Debridement Measurements/Treatment NIKA - Nurse 2 - General Ulcer CM Notes Start: 01/20/21 13:35 Freq: Status: Active Protocol: Activity Type Activity Date Activity User E-Sign Co-Sign Detail Recorded Client Recorded Date Recorded By Document 01/20/21 13:58 [id number] 01/20/21 14:11 01/20/21 13:58 Wound Center Nurse 2 #8 L Ischium -Time 13:58 -Correct Patient Yes -Correct Side, Site, Position Yes -Correct Procedure Yes -Procedure Performed Yes -Type of Procedure Debridement -Clinical Debridement Muscle / Fascia -Tissue Removed Muscle,Fascia -Post Debridement (cm) - Length 6.5 -Post Debridement (cm) - Width 6.5 -Post Debridement (cm) - Depth 0.5 -Total Square (Post) (cm) 42.25 -Area of Debridement (cm) - Length 6.5 -Area of Debridement (cm) - Width 6.5 -Total Square (Area) (cm) 42.25 -Tunneling No -Undermining/Tunneling No -Circular Undermining No -Wound/Ulcer Outcome Not Healed -Ulcer Cleansing Rinsed/ Irrigated with Saline -Foul Odor after Cleansing No -Bioengineered Tissue No -Bleeding Controlled with Pressure -Offloading No -Treatment Response Procedure Tolerated Well -Debridement - Muscle / Fascia, 1st Yes 20sq cm -Debridement, Muscle/Fascia, ea addt'l 2 20sq cm or part thereof #7 R Ischium -Time 13:59 -Correct Patient Yes -Correct Side, Site, Position Yes -Correct Procedure Yes -Procedure Performed Yes -Type of Procedure Debridement -Clinical Debridement Muscle / Fascia -Tissue Removed Muscle,Fascia -Post Debridement (cm) - Length 3.5 -Post Debridement (cm) - Width 2 -Post Debridement (cm) - Depth 0.3 -Total Square (Post) (cm) 7.0 -Area of Debridement (cm) - Length 3.5 -Area of Debridement (cm) - Width 2 -Total Square (Area) (cm) 7.0 -Tunneling No -Undermining/Tunneling No -Circular Undermining No -Wound/Ulcer Outcome Not Healed -Ulcer Cleansing Rinsed/ Irrigated with Saline -Foul Odor after Cleansing No -Bioengineered Tissue No -Bleeding Controlled with Pressure -Offloading No -Treatment Response Procedure Tolerated Well -Debridement - Subq, 1st 20sq cm No -Debridement - Muscle / Fascia, 1st No 20sq cm WC - Nurse 3 - General Ulcer D/C NN Start: 01/20/21 13:35 Freq: Status: Active Protocol: Activity Type Activity Date Activity User E-Sign Co-Sign Detail Recorded Client Recorded Date Recorded By Document 01/20/21 14:15 [facility] [id number] 01/20/21 14:15 [facility] 01/20/21 14:15 Wound Care Nurse 3 #8 L Ischium -Ulcer Cleansing Rinsed/ Irrigated with Saline -Foul Odor after Cleansing No -Primary Dressing Applied Aquacel AG 4x4 -Primary Dressing Covered/Secured with Secured with Tape,Other -Other Covering abd -Aquacel AG 4x4 1 #7 R Ischium -Ulcer Cleansing Rinsed/ Irrigated with Saline -Foul Odor after Cleansing No -Primary Dressing Applied Aquacel AG 4x4 -Primary Dressing Covered/Secured with Secured with Tape,Other -Other Covering abd -Aquacel AG 4x4 0 Treatment Response Procedure Tolerated Well Pain Scale: 0-10 Numeric Is Patient Pain Free? Yes WC - Visit Discharge Discharge Condition Stable Ambulatory Status Wheelchair Wound debrided: ischial ulcer Laterality: Left Type of Debridement: Excisional debridement Anesthesia Used: 4% Lidocaine Solution Depth: Down to and including healthy tissue, in the subcutaneous layer, to muscle Percentage of wound debrided: 100 Instrument Used: 7mm curette Tissue Removed: Subcutaneous tissue and slough into the muscle Severity: Fat Layer Exposed Amount of bleeding with debridement: Mild Bleeding Controlled with: Pressure Patient tolerated procedure well - Additional Wound Wound debrided: Ischial ulcer Laterality: Left Type of Debridement: Excisional debridement Anesthesia Used: 5% Lidocaine Gel Depth: Down to and including healthy tissue, in the subcutaneous layer, to muscle Percentage of wound debrided: 100 Instrument Used: 3mm curette Tissue Removed: Subcutaneous tissue and slough into the muscle Severity: Fat Layer Exposed Amount of bleeding with debridement: Mild Bleeding Controlled with: Pressure Patient tolerated procedure: Patient tolerated procedure well Assessment/Plan Assessment: 1. Right ischial pressure sore with extension to perineal area, Stage IV. 2. Left ischial pressure sore with extension to the femur, Stage IV. 3. Paraplegia, longstanding. 4. History of MRSA. 5. History of osteomyelitis with multiple prior surgeries. 6. Smoker. 7. s/p right AKA (06/12/2020) in [place]. Plan: Wound care - Rinse with Dakin's solution, then place silver alginate covered by gauze daily to both ulcers. Wound culture obtained on 01/20/21 due to patient having increased drainage and odor from his right ulcer and he is starting to feel like I have an infection. Depending on the culture results, it may necessitate the need to treat with antibiotics. Wound culture from 11/01/20 was positive for MRSA, E. coli, Proteus Mirabilis. He was treated with Augmentin and doxycycline for 6 weeks. He tolerated the antibiotics well. Encourage nutritional supplementation with protein to help the healing process. Encouraged the patient to stop smoking as it may have deleterious effects on wound healing. Followup 4 weeks. [id number]: [id number] Manisha musc/fascia 20 sq cm/< Add On Codes: [id number] Manisha musc/fascia add-on - x2
== END 2021-02-07 23:59 ==
LOC: WC 13:30
PROVIDERS: PCP Internal Medicine; Visit Provider Nurse Practitioner Family
DX: L89.224 Pressure ulcer of left hip, stage 4 (principal); L89.214 Pressure ulcer of right hip, stage 4; Z86.14 Personal history of Methicillin resistant Staphylococcus aureus infection; G82.20 Paraplegia, unspecified; F17.200 Nicotine dependence, unspecified, uncomplicated; M86.68 Other chronic osteomyelitis, other site; Z89.611 Acquired absence of right leg above knee
CPT/HCPCS: 11043; 11046; 87070; 87075; 87077; 87186; 87205

== ENCOUNTER 2021-02-17 13:00 | Outpatient (RCR) | payer MEDICARE, MEDICAID, SELFPAY ==
[2021-02-08 00:30] VITALS: BP 118/66; PULSE 108; RESP 18; TEMP 36.3
[2021-02-17 12:59] VITALS: BP 113/76; PULSE 129; RESP 16; TEMP 36.2; BMI 19.8
--- NOTE | 2021-02-17 13:39 | PCM.WC.PN ---
History of Present Illness Date of Service: 02/17/21 Chief Complaint: Bilateral ischial pressure sores, Stage IV. History of Wound: Surgery 04/08/20 - 1. Excision bleeding right ischial/perineal pressure sore, Stage IV. 2. Control of prostatic bleeding with electrocautery and Surgicel hemostat. Wound Care - Rinse ulcers with Dakin's solution and then cover Silver alginate dressing covered with gauze daily. Wound culture from 01/20/21 positive for Proteus mirabilis, Cornybacterium minutissium and Bacteroides fragilis. He was referred to ID for antibiotic management, which he was placed on Cefdinir, Doxycycline and Flagyl for 10 days. Patient has long standing bilateral ischial pressure sores, Stage IV, with the left side extending to the femoral head and the right side extending to the perineal area and the prostate. Surgery would entail quite extensive excision with amputations at a tertiary center. Patient does not want to pursue any heroic surgeries at this time since it is not a guarantee his pressure issues won't recur. With aggressive amputations, his already tenuous balance would be even more disrupted. Today he denies any fever. His appetite is ok. At the present time, we are providing conservative care on a monthly basis. He states his right leg gets in the way when transferring. He underwent a right AKA on 06/12/20 in [place]. Wound culture was done on 04/22/20. It showed Morganella morganii, Pseudomonas aeroginosa, Streptococcus group F, and Bacteroides fragilis. He has a lot of antibiotic allergies. His only real option is IV antibiotics. Dr. Chetser also saw him at the [facility] and felt the wounds were colonized and held off on antibiotics at this time. If his clinical situation were to change, then would re-evaluate him for IV antibiotics at that time. Wound culture from 11/01/20 was positive for MRSA, E. coli, Proteus Mirabilis. He was treated with Augmentin and doxycycline. Today he denies any fever. He states his appetite is ok. Progress of Wound: Bilateral ischial ulcers are stable. Objective Data Objective Data Vital Signs: Vital Signs Temp Pulse Resp BP 97.2 F L 129 H 16 113/76 02/17/21 12:59 02/17/21 12:59 02/17/21 12:59 02/17/21 12:59 Body Mass Index (BMI) 19.8 Assessment & Plan Assessment/Plan (1) Pressure sore of left ischium, stage 4: (2) Right ischial pressure sore, stage 4: (3) Chronic osteomyelitis, pelvis: (4) Paraplegia at T4 level: (5) Severe protein-calorie malnutrition: (6) History of tobacco use: (7) History of MRSA infection: (8) Above-knee amputation of right lower extremity: PLAN: ?Wound care - Rinse with Dakin's solution, then place silver alginate covered by ABD daily to both ulcers.? Wound culture obtained on 01/20/21, he was positive for Proteus mirabilis, Cornybacterium minutissimum and Bacteroides fragilis. Due to the resistant organisms and his allergies, he was referred to ID for antibiotic treatment. He was started on Cefdinir, Doxycycline and Flagyl all for 14 days. He still has over a week left on his antibiotics. ? Wound culture from 11/01/20 was positive for MRSA, E. coli, Proteus Mirabilis.? He was treated with Augmentin and doxycycline for 6 weeks.? He tolerated the antibiotics well.? Encourage nutritional supplementation with protein to help the healing process.? Encouraged the patient to stop smoking as it may have deleterious effects on wound healing.? Followup 4 weeks. Charges/Coding Procedures Integumentary 111xxx-113xx: 47668 Manisha musc/fascia 20 sq cm/< Add On Codes: 48025 Manisha musc/fascia add-on (x2) Physical Exam Const alert and oriented x3 General Appearance: cooperative HEENT normocephalic Eyes PERRL Resp normal respiratory effort Cardio regular rate Extremity normal capillary refill Skin Wound Narrative: Stage IV right ischial ulcer with increased scar tissue around the edges, the center of the ulcer is beefy pink. Left ischial ulcer continues to have tunneling around the entire circumference and will drain clear, synovial fluid. 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 ) Arrival Mode Wheelchair Patient Identification Verified (Name & Yes ) Patient Requires Transmission-Based No Precautions Safety Precautions NA Height and Weight Body Mass Index (BMI) 19.8 BMI Classification Normal Vital Signs Temperature (97.8 F-99.1 F) 97.2 F L Temperature Source Temporal Pulse Rate (60-100) 129 H Pulse Location Monitor Respiratory Rate (12-18) 16 Respiratory rate source Observation Blood Pressure (90/60-120/80) 113/76 Blood Pressure Mean (mm Hg) 88 Source Monitor Position Sitting Blood Pressure Location Left Arm History Since Last Visit- (Skip if this is Patient's initial visit) Have you changed medications since your No last visit? Any new allergies or adverse reactions No Had a fall/change in ADL's that may No increase risk of falls Signs or symptoms of abuse and/or No neglect since last visit Have you been in the hospital since your No last visit? Has dressing in place as prescribed Yes Has compression in place as prescribed N/A Has offloadiing in place as prescribed N/A Experienced any changes in pain level or No management Pain Scale: 0-10 Numeric Is Patient Pain Free? Yes - Nurse 1 - General Ulcer Measurement Start: 02/17/21 12:59 Freq: Status: Active Protocol: Activity Type Activity Date Activity User E-Sign Co-Sign Detail Recorded Client Recorded Date Recorded By Document 02/17/21 12:59 PA [id number] 02/17/21 13:08 PA 02/17/21 12:59 Wound Center Nurse 1 #8 L Ischium -Current Size (cm) - Length 6 -Current Size (cm) - Width 6 -Current Size (cm) - Depth 0.5 -Total Square Cm 36 -Undermining/Tunneling Yes -Undermining/Tunneling Starts (O'clock 5 ) -Undermining/Tunneling Ends (O'clock) 7 -Maximum Distance (cm) 0.2 -Undermining/Tunneling Starts #2 (O' 3 clock) -Undermining/Tunneling Ends #2 (O' 5 clock) -Maximum Distance #2 (cm) 0.2 -Exudate Amt Large -Exudate Type Serosanguineous -Wound Margin Distinct, Outline Attached -Granulation Amt Medium (34-66%) -Granulation Quality Red -Slough/Fibrin Yes -Necrosis Amt Medium (34-66%) -Necrotic Tissue Type Adherent Slough -Texture (Steffi-wound Skin Appearance) No Abnormality -Moisture (Steffi-wound Skin Appearance) No Abnormality -Color (Steffi-wound Skin Appearance) No Abnormality -Temperature (Steffi-wound Skin No Abnormality Appearance) (Pt Warm) -Ulcer Cleansing Rinsed/ Irrigated with Saline -Anesthetic Used 4% Lidocaine Solution,5% Lidocaine Gel #7 R Ischium -Current Size (cm) - Length 3.4 -Current Size (cm) - Width 3 -Current Size (cm) - Depth 0.3 -Total Square Cm 10.2 -Exudate Amt Medium -Exudate Type Serosanguineous -Wound Margin Distinct, Outline Attached -Granulation Amt Medium (34-66%) -Granulation Quality Red -Necrosis Amt Medium (34-66%) -Necrotic Tissue Type Adherent Slough -Texture (Steffi-wound Skin Appearance) No Abnormality -Moisture (Steffi-wound Skin Appearance) No Abnormality -Color (Steffi-wound Skin Appearance) No Abnormality -Temperature (Steffi-wound Skin No Abnormality Appearance) (Pt Warm) -Ulcer Cleansing Rinsed/ Irrigated with Saline -Anesthetic Used 4% Lidocaine Solution,5% Lidocaine Gel WC - Nurse 2 - General Ulcer CM Notes Start: 02/17/21 12:59 Freq: Status: Active Protocol: Activity Type Activity Date Activity User E-Sign Co-Sign Detail Recorded Client Recorded Date Recorded By Document 02/17/21 13:15 DEBORAH [id number] 02/17/21 13:22 DEBORAH 02/17/21 13:15 Wound Center Nurse 2 #8 L Ischium -Time 13:15 -Correct Patient Yes -Correct Side, Site, Position Yes -Correct Procedure Yes -Procedure Performed Yes -Type of Procedure Debridement -Clinical Debridement Muscle / Fascia -Tissue Removed Muscle,Fascia -Post Debridement (cm) - Length 7.2 -Post Debridement (cm) - Width 6.8 -Post Debridement (cm) - Depth 0.8 -Total Square (Post) (cm) 48.96 -Area of Debridement (cm) - Length 7.2 -Area of Debridement (cm) - Width 6.8 -Total Square (Area) (cm) 48.96 -Tunneling No -Undermining/Tunneling No -Circular Undermining No -Wound/Ulcer Outcome Not Healed -Ulcer Cleansing Rinsed/ Irrigated with Saline -Foul Odor after Cleansing No -Bioengineered Tissue No -Bleeding Controlled with Pressure -Offloading No -Treatment Response Procedure Tolerated Well -Debridement - Muscle / Fascia, 1st Yes 20sq cm -Debridement, Muscle/Fascia, ea addt'l 2 20sq cm or part thereof #7 R Ischium -Time 13:15 -Correct Side, Site, Position Yes -Correct Procedure Yes -Procedure Performed Yes -Type of Procedure Debridement -Clinical Debridement Muscle / Fascia -Tissue Removed Muscle,Fascia -Post Debridement (cm) - Length 1 -Post Debridement (cm) - Width 1.5 -Post Debridement (cm) - Depth 0.2 -Total Square (Post) (cm) 1.5 -Area of Debridement (cm) - Length 1 -Area of Debridement (cm) - Width 1.5 -Total Square (Area) (cm) 1.5 -Tunneling No -Undermining/Tunneling No -Circular Undermining No -Wound/Ulcer Outcome Not Healed -Ulcer Cleansing Rinsed/ Irrigated with Saline -Foul Odor after Cleansing No -Bioengineered Tissue No -Bleeding Controlled with Pressure -Offloading No -Treatment Response Procedure Tolerated Well -Debridement - Subq, 1st 20sq cm No -Debridement - Muscle / Fascia, 1st No 20sq cm Pain Scale: 0-10 Numeric Is Patient Pain Free? Yes - Nurse 3 - General Ulcer D/C NN Start: 02/17/21 12:59 Freq: Status: Active Protocol: Activity Type Activity Date Activity User E-Sign Co-Sign Detail Recorded Client Recorded Date Recorded By Document 02/17/21 13:29 MS [id number] 02/17/21 13:30 MS 02/17/21 13:29 Wound Care Nurse 3 #8 L Ischium -Ulcer Cleansing Rinsed/ Irrigated with Saline -Primary Dressing Applied Aquacel AG 4x4 -Other Dressing abd -Primary Dressing Covered/Secured with Secured with Tape -Aquacel AG 4x4 1 #7 R Ischium -Ulcer Cleansing Rinsed/ Irrigated with Saline -Primary Dressing Applied Aquacel AG 4x4 -Other Dressing abd -Primary Dressing Covered/Secured with Secured with Tape -Aquacel AG 4x4 0 WC - Visit Discharge Discharge Condition Stable Ambulatory Status Wheelchair Medication Reconcilliation completed & No provided to patient/care provider Clinical Summary of Care Provided Yes Wound debrided: Ischial ulcer Laterality: Left Wound Grade/Stage: Stage IV Type of Debridement: Excisional debridement Anesthesia Used: 5% Lidocaine Gel Depth: Down to and including healthy tissue, in the subcutaneous layer and to muscle Percentage of wound debrided: 100 Instrument Used: 7mm curette Tissue Removed: Subcutaneous tissue and and slough Severity: Fat Layer Exposed Amount of bleeding with debridement: Mild Bleeding Controlled with: Pressure and Compression and gauze Additional Wound Wound debrided: Ischial ulcer Laterality: Right Wound Grade/Stage: Stage IV Type of Debridement: Excisional debridement Anesthesia Used: 5% Lidocaine Gel Depth: Down to and including healthy tissue, in the subcutaneous layer and to muscle Percentage of wound debrided: 100 Instrument Used: 5mm curette Tissue Removed: Subcutaneous tissue and slough Severity: Fat Layer Exposed Amount of bleeding with debridement: Mild Bleeding Controlled with: Pressure and Compression and gauze Patient tolerated procedure: Patient tolerated procedure well
== END 2021-03-10 23:59 ==
LOC: WC 13:00
PROVIDERS: PCP Internal Medicine; Visit Provider Nurse Practitioner Family
DX: L89.224 Pressure ulcer of left hip, stage 4 (principal); L89.214 Pressure ulcer of right hip, stage 4; Z86.14 Personal history of Methicillin resistant Staphylococcus aureus infection; G82.20 Paraplegia, unspecified; F17.200 Nicotine dependence, unspecified, uncomplicated; Z89.611 Acquired absence of right leg above knee; M86.68 Other chronic osteomyelitis, other site; E43 Unspecified severe protein-calorie malnutrition; Z68.1 Body mass index [BMI] 19.9 or less, adult
CPT/HCPCS: 11043; 11046

== ENCOUNTER 2021-03-24 15:30 | Outpatient (RCR) | payer MEDICARE, MEDICAID, SELFPAY ==
[2021-03-11 00:19] VITALS: BP 113/76; PULSE 129; RESP 16; TEMP 36.2
[2021-03-24 11:15] VITALS: BP 109/67; PULSE 116; TEMP 36.4; BMI 19.8
--- NOTE | 2021-03-24 19:53 | PCM.WC.PN ---
History of Present Illness Date of Service: 03/24/21 Chief Complaint: Bilateral ischial pressure sores, Stage IV. History of Wound: Surgery 04/08/20 - 1. Excision bleeding right ischial/perineal pressure sore, Stage IV. 2. Control of prostatic bleeding with electrocautery and Surgicel hemostat. Wound Care - Rinse ulcers with Dakin's solution and then cover Silver alginate dressing covered with gauze daily. Wound culture from 01/20/21 positive for Proteus mirabilis, Cornybacterium minutissium and Bacteroides fragilis. He was referred to ID for antibiotic management, which he was placed on Cefdinir, Doxycycline and Flagyl for 10 days. Patient has long standing bilateral ischial pressure sores, Stage IV, with the left side extending to the femoral head and the right side extending to the perineal area and the prostate. Surgery would entail quite extensive excision with amputations at a tertiary center. Patient does not want to pursue any heroic surgeries at this time since it is not a guarantee his pressure issues won't recur. With aggressive amputations, his already tenuous balance would be even more disrupted. At the present time, we are providing conservative care on a monthly basis. He states his right leg gets in the way when transferring. He underwent a right AKA on 06/12/20 in [place]. Wound culture was done on 04/22/20. It showed Morganella morganii, Pseudomonas aeroginosa, Streptococcus group F, and Bacteroides fragilis. He has a lot of antibiotic allergies. His only real option is IV antibiotics. Dr. Chester also saw him at the [facility] and felt the wounds were colonized and held off on antibiotics at this time. If his clinical situation were to change, then would re-evaluate him for IV antibiotics at that time. Wound culture from 11/01/20 was positive for MRSA, E. coli, Proteus Mirabilis. He was treated with Augmentin and doxycycline. He is complaining increased green drainage with odor from the left ischial ulcer. He is also having issues with chills and sweating. Today he denies any fever. He states his appetite is ok. Progress of Wound: Stable Objective Data Objective Data Vital Signs: Vital Signs Temp Pulse Resp BP 97.5 F L 116 H 16 109/67 03/24/21 11:15 03/24/21 11:15 03/11/21 00:19 03/24/21 11:15 Body Mass Index (BMI) 19.8 Charges/Coding Procedures Integumentary 111xxx-113xx: 66224 Manisha musc/fascia 20 sq cm/< Add On Codes: 08738 Manisha musc/fascia add-on (x2) Physical Exam Const alert and oriented x3 General Appearance: cooperative HEENT normocephalic Eyes PERRL Lymph Lymphatic: no lymphedema noted Resp normal respiratory effort Cardio regular rate Extremity normal capillary refill Skin Wound Narrative: Left ischial ulcer has increased biofilm. Right ischial ulcer has increased scar tissue and slough surrounding the ulcer. 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 Any new allergies or adverse reactions No Had a fall/change in ADL's that may No increase risk of falls Signs or symptoms of abuse and/or No neglect since last visit Have you been in the hospital since your No last visit? Has dressing in place as prescribed Yes Has compression in place as prescribed N/A Has offloadiing in place as prescribed N/A Experienced any changes in pain level or No management Pain Scale: 0-10 Numeric Is Patient Pain Free? Yes - Nurse 1 - General Ulcer Measurement Start: 03/24/21 11:15 Freq: Status: Active Protocol: Activity Type Activity Date Activity User E-Sign Co-Sign Detail Recorded Client Recorded Date Recorded By Document 03/24/21 11:15 KR [id number] 03/24/21 11:23 KR 03/24/21 11:15 Wound Center Nurse 1 #8 L Ischium -Current Size (cm) - Length 6.4 -Current Size (cm) - Width 5.7 -Current Size (cm) - Depth 0.6 -Total Square Cm 36.48 -Exudate Amt Medium -Exudate Type Serosanguineous -Wound Margin Distinct, Outline Attached -Granulation Amt Medium (34-66%) -Granulation Quality Red -Necrosis Amt Medium (34-66%) -Necrotic Tissue Type Adherent Slough -Texture (Steffi-wound Skin Appearance) Assessed, Scarring -Moisture (Steffi-wound Skin Appearance) Assessed, Maceration -Color (Steffi-wound Skin Appearance) No Abnormality, Assessed -Temperature (Steffi-wound Skin No Abnormality Appearance) (Pt Warm) -Tenderness on Palpation (Steffi-wound No Skin Appearance) -Ulcer Cleansing Rinsed/ Irrigated with Saline -Foul Odor after Cleansing No #7 R Ischium -Current Size (cm) - Length 0.9 -Current Size (cm) - Width 0.4 -Current Size (cm) - Depth 0.2 -Total Square Cm 0.36 -Tunneling Position (O'clock) 12 -Tunneling Distance (cm) 1.9 -Exudate Amt Small -Exudate Type Serosanguineous -Wound Margin Thickened & Rolled Under -Granulation Amt Large (67-100%) -Granulation Quality Red -Necrosis Amt None Present (0 %) -Moisture (Steffi-wound Skin Appearance) Assessed, Maceration -Color (Steffi-wound Skin Appearance) No Abnormality, Assessed -Temperature (Steffi-wound Skin No Abnormality Appearance) (Pt Warm) -Tenderness on Palpation (Steffi-wound No Skin Appearance) -Ulcer Cleansing Rinsed/ Irrigated with Saline -Foul Odor after Cleansing No WC - Nurse 2 - General Ulcer CM Notes Start: 03/24/21 11:15 Freq: Status: Active Protocol: Activity Type Activity Date Activity User E-Sign Co-Sign Detail Recorded Client Recorded Date Recorded By Document 03/24/21 12:16 PL [id number] 03/24/21 12:18 PL 03/24/21 12:16 Wound Center Nurse 2 #8 L Ischium -Time 11:36 -Correct Patient Yes -Correct Side, Site, Position Yes -Correct Procedure Yes -Procedure Performed Yes -Type of Procedure Debridement -Clinical Debridement Muscle / Fascia -Tissue Removed Subcutaneous, Muscle -Post Debridement (cm) - Length 6.0 -Post Debridement (cm) - Width 6.5 -Post Debridement (cm) - Depth 0.7 -Total Square (Post) (cm) 39.00 -Area of Debridement (cm) - Length 6.0 -Area of Debridement (cm) - Width 6.5 -Total Square (Area) (cm) 39.00 -Tunneling No -Undermining/Tunneling No -Circular Undermining No -Wound/Ulcer Outcome Not Healed -Ulcer Cleansing Rinsed/ Irrigated with Saline -Foul Odor after Cleansing No -Bioengineered Tissue No -Debridement - Muscle / Fascia, 1st No 20sq cm -Debridement, Muscle/Fascia, ea addt'l 1 20sq cm or part thereof #7 R Ischium -Time 11:36 -Correct Patient Yes -Correct Side, Site, Position Yes -Correct Procedure Yes -Procedure Performed Yes -Type of Procedure Debridement -Clinical Debridement Muscle / Fascia -Tissue Removed Subcutaneous, Muscle -Post Debridement (cm) - Length 4 -Post Debridement (cm) - Width 3 -Post Debridement (cm) - Depth 0.3 -Total Square (Post) (cm) 12 -Area of Debridement (cm) - Length 4 -Area of Debridement (cm) - Width 3 -Total Square (Area) (cm) 12 -Tunneling No -Undermining/Tunneling No -Circular Undermining No -Wound/Ulcer Outcome Not Healed -Ulcer Cleansing Rinsed/ Irrigated with Saline -Foul Odor after Cleansing No -Bioengineered Tissue No -Debridement - Muscle / Fascia, 1st Yes 20sq cm Pain Scale: 0-10 Numeric Is Patient Pain Free? Yes WC - Nurse 3 - General Ulcer D/C NN Start: 03/24/21 11:15 Freq: Status: Active Protocol: Activity Type Activity Date Activity User E-Sign Co-Sign Detail Recorded Client Recorded Date Recorded By Document 03/24/21 11:49 MENDEZ [id number] 03/24/21 11:50 MENDEZ 03/24/21 11:49 Wound Care Nurse 3 #8 L Ischium -Primary Dressing Applied Silvercel -Primary Dressing Covered/Secured with Dry Gauze, Secured with Tape -Silvercel 1 #7 R Ischium -Primary Dressing Covered/Secured with Dry Gauze, Secured with Tape Pain Scale: 0-10 Numeric Is Patient Pain Free? Yes WC - Visit Discharge Discharge Condition Stable Ambulatory Status Wheelchair Transportation Private Auto Wound debrided: Ischial ulcer Laterality: Left Wound Grade/Stage: Stage IV Type of Debridement: Excisional debridement Anesthesia Used: 4% Lidocaine Solution Depth: Down to and including healthy tissue, in the subcutaneous layer and to muscle Percentage of wound debrided: 100 Instrument Used: 7mm curette Tissue Removed: Subcutaneous tissue and slough into the muscle. Severity: Fat Layer Exposed Amount of bleeding with debridement: Mild Bleeding Controlled with: Pressure Patient tolerated procedure: Patient tolerated procedure well Additional Wound Wound debrided: Ischial ulcer Laterality: Right Wound Grade/Stage: Stage IV Type of Debridement: Excisional debridement Anesthesia Used: 4% Lidocaine Solution Depth: Down to and including healthy tissue, in the subcutaneous layer and to muscle Percentage of wound debrided: 100 Instrument Used: 3mm curette Tissue Removed: Subcutaneous tissue and slough Severity: Fat Layer Exposed Amount of bleeding with debridement: Mild Bleeding Controlled with: Pressure Patient tolerated procedure: Patient tolerated procedure well Assessment/Plan Assessment/Plan (1) Pressure sore of left ischium, stage 4: CODE(S): L89.324 - Pressure ulcer of left buttock, stage 4 (2) Right ischial pressure sore, stage 4: CODE(S): L89.314 - Pressure ulcer of right buttock, stage 4 (3) Chronic osteomyelitis, pelvis: CODE(S): M86.659 - Other chronic osteomyelitis, unspecified thigh (4) Paraplegia at T4 level: CODE(S): G82.20 - Paraplegia, unspecified (5) Severe protein-calorie malnutrition: CODE(S): E43 - Unspecified severe protein-calorie malnutrition (6) History of tobacco use: CODE(S): Z87.891 - Personal history of nicotine dependence (7) History of MRSA infection: CODE(S): Z86.14 - Personal history of Methicillin resistant Staphylococcus aureus infection PLAN: Wound care - Aquacel-Ag covered by ABD daily to both ulcers. Wound culture obtained today, 03/24/21. Depending on the results, it may necessitate treatment with antibiotics and possibly a consult to infectious disease. Wound culture obtained on 01/20/21, he was positive for Proteus mirabilis, Cornybacterium minutissimum and Bacteroides fragilis. Due to the resistant organisms and his allergies, he was referred to ID for antibiotic treatment. He was started on Cefdinir, Doxycycline and Flagyl all for 14 days. Wound culture from 11/01/20 was positive for MRSA, E. coli, Proteus Mirabilis. He was treated with Augmentin and doxycycline for 6 weeks. He tolerated the antibiotics well. Encourage nutritional supplementation with protein to help the healing process. Encouraged the patient to stop smoking as it may have deleterious effects on wound healing. Followup 3 weeks.
== END 2021-04-09 23:59 ==
LOC: WC 15:30
PROVIDERS: PCP Internal Medicine; Visit Provider Nurse Practitioner Family
DX: L89.224 Pressure ulcer of left hip, stage 4 (principal); L89.214 Pressure ulcer of right hip, stage 4; Z86.14 Personal history of Methicillin resistant Staphylococcus aureus infection; G82.20 Paraplegia, unspecified; F17.200 Nicotine dependence, unspecified, uncomplicated; Z89.611 Acquired absence of right leg above knee; Z87.891 Personal history of nicotine dependence; M86.60 Other chronic osteomyelitis, unspecified site
CPT/HCPCS: 11043; 11046; 87070; 87075; 87077; 87186; 87205

== ENCOUNTER 2021-04-21 11:00 | Outpatient (RCR) | payer MEDICARE, MEDICAID, SELFPAY ==
[2021-04-10 00:17] VITALS: BP 109/67; PULSE 116; RESP 16; TEMP 36.4
[2021-04-21 11:08] VITALS: BP 129/81; PULSE 70; RESP 16; TEMP 36.7; BMI 19.8
--- NOTE | 2021-04-21 12:21 | PN.PCM_ITS ---
History of Present Illness Date of Service: 04/21/21 Chief Complaint: Bilateral ischial pressure sores, Stage IV. History of Wound: Surgery 04/08/20 - 1. Excision bleeding right ischial/perineal pressure sore, Stage IV. 2. Control of prostatic bleeding with electrocautery and Surgicel hemostat. Wound Care - Rinse ulcers with Dakin's solution and then cover Silver alginate dressing covered with gauze daily. Wound culture from 01/20/21 positive for Proteus mirabilis, Cornybacterium minutissium and Bacteroides fragilis. He was referred to ID for antibiotic management, which he was placed on Cefdinir, Doxycycline and Flagyl for 10 days. Patient has long standing bilateral ischial pressure sores, Stage IV, with the left side extending to the femoral head and the right side extending to the perineal area and the prostate. Surgery would entail quite extensive excision with amputations at a tertiary center. Patient does not want to pursue any heroic surgeries at this time since it is not a guarantee his pressure issues won't recur. With aggressive amputations, his already tenuous balance would be even more disrupted. At the present time, we are providing conservative care on a monthly basis. He states his right leg gets in the way when transferring. He underwent a right AKA on 06/12/20 in [place]. Wound culture was done on 04/22/20. It showed Morganella morganii, Pseudomonas aeroginosa, Streptococcus group F, and Bacteroides fragilis. He has a lot of antibiotic allergies. His only real option is IV antibiotics. Dr. Chester also saw him at the [facility] and felt the wounds were colonized and held off on antibiotics at this time. If his clinical situation were to change, then would re-evaluate him for IV antibiotics at that time. Wound culture from 11/01/20 was positive for MRSA, E. coli, Proteus Mirabilis. He was treated with Augmentin and doxycycline. Today he denies any fever. He states his appetite is ok. Progress of Wound: Stable. Subjective Subjective Today he denies any complaints. Objective Data Objective Data Vital Signs: Vital Signs Temp Pulse Resp BP 98.1 F 70 16 129/81 H 04/21/21 11:08 04/21/21 11:08 04/21/21 11:08 04/21/21 11:08 Oxygen Delivery Method Room Air Body Mass Index (BMI) 19.8 Charges/Coding Procedures Integumentary 111xxx-113xx: 04325 Manisha musc/fascia 20 sq cm/< Add On Codes: 57431 Manisha musc/fascia add-on (x2) Physical Exam Const alert and oriented x3 General Appearance: cooperative HEENT normocephalic Eyes PERRL Lymph Lymphatic: no lymphedema noted Resp normal respiratory effort Cardio regular rate GI non-tender Palpation: soft Extremity no clubbing, cyanosis or edema Skin Wound Narrative: Left ischial ulcer with bone exposed, there is a rim around the ulcer, when his muscles spasm he leaks synovial fluid from 12-2 o'clock. On right ischial ulcer it is stable, pink in the center with scar tissue surround the ulcer. 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 ) Arrival Mode Wheelchair Transfer Assistance Other Transfer Assist (Other) stand by Patient Identification Verified (Name & Yes ) Patient Requires Transmission-Based No Precautions Height and Weight Body Mass Index (BMI) 19.8 BMI Classification Normal Vital Signs Temperature (97.8 F-99.1 F) 98.1 F Temperature Source Temporal Pulse Rate (60-100) 70 Pulse Location Monitor Respiratory Rate (12-18) 16 Respiratory rate source Observation Oxygen Delivery Method Room Air Blood Pressure (90/60-120/80) 129/81 H Blood Pressure Mean (mm Hg) 97 Source Monitor Position Sitting Blood Pressure Location Left Arm History Since Last Visit- (Skip if this is Patient's initial visit) Have you changed medications since your No last visit? Any new allergies or adverse reactions No Had a fall/change in ADL's that may No increase risk of falls Signs or symptoms of abuse and/or No neglect since last visit Have you been in the hospital since your No last visit? Has dressing in place as prescribed Yes Has compression in place as prescribed N/A Has offloadiing in place as prescribed N/A Experienced any changes in pain level or No management Left Footwear Regular Shoe Right Footwear Regular Shoe Pain Scale: 0-10 Numeric Is Patient Pain Free? Yes WC - Nurse 1 - General Ulcer Measurement Start: 04/21/21 11:06 Freq: Status: Active Protocol: Activity Type Activity Date Activity User E-Sign Co-Sign Detail Recorded Client Recorded Date Recorded By Document 04/21/21 11:08 [facility] [id number] 04/21/21 11:15 [facility] 04/21/21 11:08 Wound Center Nurse 1 #8 L Ischium -Combined with other wound No -Current Size (cm) - Length 6.5 -Current Size (cm) - Width 5.8 -Current Size (cm) - Depth 0.3 -Total Square Cm 37.70 -Photo Taken No -Epithelialization Small 1-33% -Tunneling No -Undermining/Tunneling Yes -Undermining/Tunneling Starts (O'clock 9 ) -Undermining/Tunneling Ends (O'clock) 1 -Maximum Distance (cm) 0.5 -Circular Undermining No -Exudate Amt Large -Exudate Type Serosanguineous -Granulation Amt Medium (34-66%) -Granulation Quality Red -Slough/Fibrin Yes -Necrosis Amt Medium (34-66%) -Necrotic Tissue Type Adherent Slough -Texture (Steffi-wound Skin Appearance) Assessed, Scarring -Moisture (Steffi-wound Skin Appearance) Assessed, Maceration -Color (Steffi-wound Skin Appearance) Assessed -Temperature (Steffi-wound Skin No Abnormality Appearance) (Pt Warm) -Tenderness on Palpation (Steffi-wound No Skin Appearance) -Ulcer Cleansing soapy water -Foul Odor after Cleansing No #7 R Ischium -Combined with other wound No -Current Size (cm) - Length 0.5 -Current Size (cm) - Width 0.5 -Current Size (cm) - Depth 0.1 -Total Square Cm 0.25 -Photo Taken No -Epithelialization Small 1-33% -Tunneling No -Undermining/Tunneling No -Circular Undermining No -Exudate Amt Large -Exudate Type Serosanguineous -Wound Margin Distinct, Outline Attached -Granulation Amt Medium (34-66%) -Granulation Quality Red -Slough/Fibrin Yes -Necrosis Amt Medium (34-66%) -Necrotic Tissue Type Adherent Slough -Texture (Steffi-wound Skin Appearance) Assessed, Scarring -Moisture (Steffi-wound Skin Appearance) Assessed, Maceration -Color (Steffi-wound Skin Appearance) Assessed -Temperature (Steffi-wound Skin No Abnormality Appearance) (Pt Warm) -Tenderness on Palpation (Steffi-wound No Skin Appearance) -Ulcer Cleansing soapy water -Foul Odor after Cleansing No WC - Nurse 3 - General Ulcer D/C NN Start: 04/21/21 11:06 Freq: Status: Active Protocol: Activity Type Activity Date Activity User E-Sign Co-Sign Detail Recorded Client Recorded Date Recorded By Document 04/21/21 11:48 RADHA [id number] 04/21/21 11:51 DL 04/21/21 11:48 Wound Care Nurse 3 #8 L Ischium -Ulcer Cleansing Rinsed/ Irrigated with Saline -Foul Odor after Cleansing No -Primary Dressing Applied Aquacel AG 4x4 -Primary Dressing Covered/Secured with Dry Gauze, Secured with Tape -Aquacel AG 4x4 1 #7 R Ischium -Ulcer Cleansing Rinsed/ Irrigated with Saline -Foul Odor after Cleansing No -Other Dressing aqaucel ag -Primary Dressing Covered/Secured with Dry Gauze, Secured with Tape Treatment Response Procedure Tolerated Well Pain Scale: 0-10 Numeric Is Patient Pain Free? Yes WC - Visit Discharge Discharge Condition Stable Ambulatory Status Wheelchair Transportation Private Auto Notes: Dressing applied per Sheron Thomas today. Wound debrided: ischial ulcer Laterality: Left Wound Grade/Stage: Stage IV Type of Debridement: Excisional debridement Anesthesia Used: 5% Lidocaine Gel Depth: Down to and including healthy tissue, in the subcutaneous layer and to muscle Percentage of wound debrided: 100 Instrument Used: 5mm curette Tissue Removed: Subcutaneous tissue and slough into the muscle. Severity: Fat Layer Exposed Amount of bleeding with debridement: Moderate Bleeding Controlled with: Pressure, Compression and gauze and Silver Nitrate (Silver nitrate needed in 2 areas on the edge of the ulcer around 6 o'clock) Patient tolerated procedure: Patient tolerated procedure well Additional Wound Wound debrided: Ischial ulcer Laterality: Right Type of Debridement: Excisional debridement Anesthesia Used: 4% Lidocaine Solution Depth: Down to and including healthy tissue and in the subcutaneous layer Percentage of wound debrided: 100 Instrument Used: 3mm curette Tissue Removed: Subcutaneuos tissue and slough Severity: Fat Layer Exposed Amount of bleeding with debridement: Mild Bleeding Controlled with: Pressure Patient tolerated procedure: Patient tolerated procedure well Assessment/Plan Assessment/Plan (1) Pressure sore of left ischium, stage 4: CODE(S): L89.324 - Pressure ulcer of left buttock, stage 4 (2) Right ischial pressure sore, stage 4: CODE(S): L89.314 - Pressure ulcer of right buttock, stage 4 (3) Chronic osteomyelitis, pelvis: CODE(S): M86.659 - Other chronic osteomyelitis, unspecified thigh (4) Severe protein-calorie malnutrition: CODE(S): E43 - Unspecified severe protein-calorie malnutrition (5) History of tobacco use: CODE(S): Z87.891 - Personal history of nicotine dependence (6) History of MRSA infection: CODE(S): Z86.14 - Personal history of Methicillin resistant Staphylococcus aureus infection PLAN: Wound care - Rinse with Dakin's solution, then place silver alginate covered by ABD, DAILY, to both ulcers. Wound culture obtained on 01/20/21, he was positive for Proteus mirabilis, Cornybacterium minutissimum and Bacteroides fragilis. Due to the resistant organisms and his allergies, he was referred to ID for antibiotic treatment. He was started on Cefdinir, Doxycycline and Flagyl all for 14 days, which he completed. Wound culture from 11/01/20 was positive for MRSA, E. coli, Proteus Mirabilis. He was treated with Augmentin and doxycycline for 6 weeks. He tolerated the antibiotics well. Encourage nutritional supplementation with protein to help the healing process. Encouraged the patient to stop smoking as it may have deleterious effects on wound healing. Followup 3 weeks.
== END 2021-05-10 23:59 ==
LOC: WC 11:00
PROVIDERS: PCP Internal Medicine; Visit Provider Nurse Practitioner Family
DX: L89.224 Pressure ulcer of left hip, stage 4 (principal); L89.214 Pressure ulcer of right hip, stage 4; Z86.14 Personal history of Methicillin resistant Staphylococcus aureus infection; G82.20 Paraplegia, unspecified; F17.200 Nicotine dependence, unspecified, uncomplicated; M86.68 Other chronic osteomyelitis, other site
CPT/HCPCS: 11042; 11045

== ENCOUNTER 2021-06-09 11:00 | Outpatient (RCR) | payer MEDICARE, MEDICAID, SELFPAY ==
[2021-05-11 00:22] VITALS: BP 129/81; PULSE 70; RESP 16; TEMP 36.7
--- NOTE | 2021-05-13 15:05 | WC ---
Patient states he has a strange yellow-green colored drainage coming from his right side of hip ulcer. He did mention it at his last appointment but non e was noted on that day. Patient asked if he could obtain a sample and bring it in to show Jasmin on Wednesday the 05/19/21. I encouraged this and reviewed s/s of infection if any symptoms worsens, to report to the ER. Patient verbalized understanding.
[2021-05-19 10:56] VITALS: BP 110/63; PULSE 105; RESP 20; TEMP 36.8; BMI 19.8
--- NOTE | 2021-05-19 12:29 | PCM.WC.PN ---
History of Present Illness Date of Service: 05/19/21 Chief Complaint: Bilateral ischial pressure sores, Stage IV. History of Wound: Surgery 04/08/20 - 1. Excision bleeding right ischial/perineal pressure sore, Stage IV. 2. Control of prostatic bleeding with electrocautery and Surgicel hemostat. Wound Care - Rinse ulcers with Dakin's solution and then cover Silver alginate dressing covered with gauze daily. Wound culture from 01/20/21 positive for Proteus mirabilis, Cornybacterium minutissium and Bacteroides fragilis. He was referred to ID for antibiotic management, which he was placed on Cefdinir, Doxycycline and Flagyl for 10 days. Patient has long standing bilateral ischial pressure sores, Stage IV, with the left side extending to the femoral head and the right side extending to the perineal area and the prostate. Surgery would entail quite extensive excision with amputations at a tertiary center. Patient does not want to pursue any heroic surgeries at this time since it is not a guarantee his pressure issues won't recur. With aggressive amputations, his already tenuous balance would be even more disrupted. At the present time, we are providing conservative care on a monthly basis. He states his right leg gets in the way when transferring. He underwent a right AKA on 06/12/20 in [place]. Wound culture was done on 04/22/20. It showed Morganella morganii, Pseudomonas aeroginosa, Streptococcus group F, and Bacteroides fragilis. He has a lot of antibiotic allergies. His only real option is IV antibiotics. Dr. Chester also saw him at the W[facility] Center and felt the wounds were colonized and held off on antibiotics at this time. If his clinical situation were to change, then would re-evaluate him for IV antibiotics at that time. Wound culture from 11/01/20 was positive for MRSA, E. coli, Proteus Mirabilis. He was treated with Augmentin and doxycycline. Today he denies any fever. He states his appetite is ok. Progress of Wound: Stable Subjective Subjective Patient has concerns that he is having drainage from his right ulcer that is mucous like and has a strange odor. He states it is worse after he eats or drinks a lot. It also occurs more frequently at night. Objective Data Objective Data Vital Signs: Vital Signs Temp Pulse Resp BP 98.3 F 105 H 20 H 110/63 05/19/21 10:56 05/19/21 10:56 05/19/21 10:56 05/19/21 10:56 Body Mass Index (BMI) 19.8 Charges/Coding Procedures Integumentary 111xxx-113xx: 72508 Manisha musc/fascia 20 sq cm/< Add On Codes: 90157 Manisha musc/fascia add-on (x3) Physical Exam Const alert and oriented x3 General Appearance: cooperative HEENT normocephalic Head and Scalp: atraumatic Eyes PERRL Lymph Lymphatic: no lymphedema noted Resp normal respiratory effort Cardio regular rate GI non-tender Palpation: soft Extremity normal capillary refill Skin Wound Narrative: Left ischial ulcer is stable continues to have some tunneling surrounding the ulcer. At times with movement there is a clear fluid that drains, most likely synovial fluid from his left hip. Right ischial ulcer cluster with no tunneling. No drainage seen. 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 ) Arrival Mode Wheelchair Transfer Assistance None Patient Identification Verified (Name & Yes ) Patient Requires Transmission-Based No Precautions Height and Weight Body Mass Index (BMI) 19.8 BMI Classification Normal Vital Signs Temperature (97.8 F-99.1 F) 98.3 F Temperature Source Temporal Pulse Rate (60-100) 105 H Pulse Location Monitor Respiratory Rate (12-18) 20 H Respiratory rate source Observation Blood Pressure (90/60-120/80) 110/63 Blood Pressure Mean (mm Hg) 78 Source Monitor History Since Last Visit- (Skip if this is Patient's initial visit) Have you changed medications since your No last visit? Any new allergies or adverse reactions No Had a fall/change in ADL's that may No increase risk of falls Signs or symptoms of abuse and/or No neglect since last visit Have you been in the hospital since your No last visit? Has dressing in place as prescribed Yes Has compression in place as prescribed N/A Has offloadiing in place as prescribed Yes Experienced any changes in pain level or No management Pain Scale: 0-10 Numeric Is Patient Pain Free? Yes WC - Nurse 1 - General Ulcer Measurement Start: 05/19/21 10:56 Freq: Status: Active Protocol: Activity Type Activity Date Activity User E-Sign Co-Sign Detail Recorded Client Recorded Date Recorded By Document 05/19/21 10:56 DL [id number] 05/19/21 11:06 DL 05/19/21 10:56 Wound Center Nurse 1 #8 L Ischium -Current Size (cm) - Length 6.6 -Current Size (cm) - Width 5.8 -Current Size (cm) - Depth 0.6 -Total Square Cm 38.28 -Photo Taken No -Exudate Amt Medium -Wound Margin Thickened & Rolled Under -Granulation Amt Medium (34-66%) -Granulation Quality Pale,Odin -Necrotic Tissue Type Adherent Slough -Structure Exposed N/A -Texture (Steffi-wound Skin Appearance) Scarring -Moisture (Steffi-wound Skin Appearance) Maceration -Color (Steffi-wound Skin Appearance) No Abnormality -Ulcer Cleansing Rinsed/ Irrigated with Saline -Foul Odor after Cleansing No #7 R Ischium -Current Size (cm) - Length 0.5 -Current Size (cm) - Width 0.7 -Current Size (cm) - Depth 0.1 -Total Square Cm 0.35 -Photo Taken No -Exudate Amt Small -Wound Margin Thickened & Rolled Under -Granulation Amt Small (1-33%) -Granulation Quality Odin -Necrosis Amt Small (1-33%) -Necrotic Tissue Type Eschar -Structure Exposed N/A -Texture (Steffi-wound Skin Appearance) Scarring -Moisture (Steffi-wound Skin Appearance) Maceration -Temperature (Steffi-wound Skin No Abnormality Appearance) (Pt Warm) -Tenderness on Palpation (Steffi-wound No Skin Appearance) -Ulcer Cleansing Rinsed/ Irrigated with Saline -Foul Odor after Cleansing No WC - Nurse 2 - General Ulcer CM Notes Start: 05/19/21 10:56 Freq: Status: Active Protocol: Activity Type Activity Date Activity User E-Sign Co-Sign Detail Recorded Client Recorded Date Recorded By Document 05/19/21 11:30 DEBORAH [id number] 05/19/21 11:44 DEBORAH Edit Result 05/19/21 11:30 JF (1) [id number] 05/19/21 11:45 JF (1) #8 L Ischium - Debridement, Muscle/Fascia, ea addt'l 2 => 3 20sq cm or part thereof 05/19/21 11:30 Wound Center Nurse 2 #8 L Ischium -Time 11:30 -Correct Patient Yes -Correct Side, Site, Position Yes -Correct Procedure Yes -Procedure Performed Yes -Type of Procedure Debridement -Clinical Debridement Muscle / Fascia -Tissue Removed Muscle -Post Debridement (cm) - Length 7 -Post Debridement (cm) - Width 7 -Post Debridement (cm) - Depth 1 -Total Square (Post) (cm) 49 -Area of Debridement (cm) - Length 7 -Area of Debridement (cm) - Width 7 -Total Square (Area) (cm) 49 -Tunneling No -Undermining/Tunneling No -Circular Undermining No -Wound/Ulcer Outcome Not Healed -Ulcer Cleansing Rinsed/ Irrigated with Saline -Foul Odor after Cleansing No -Bioengineered Tissue No -Bleeding Controlled with Pressure -Offloading No -Treatment Response Procedure Tolerated Well -Debridement - Muscle / Fascia, 1st Yes 20sq cm -Debridement, Muscle/Fascia, ea addt'l 3 20sq cm or part thereof #7 R Ischium -Time 11:31 -Correct Patient Yes -Correct Side, Site, Position Yes -Correct Procedure Yes -Procedure Performed Yes -Type of Procedure Debridement -Clinical Debridement Muscle / Fascia -Tissue Removed Muscle -Post Debridement (cm) - Length 4 -Post Debridement (cm) - Width 3 -Post Debridement (cm) - Depth 1 -Total Square (Post) (cm) 12 -Area of Debridement (cm) - Length 4 -Area of Debridement (cm) - Width 3 -Total Square (Area) (cm) 12 -Tunneling No -Undermining/Tunneling No -Circular Undermining No -Wound/Ulcer Outcome Not Healed -Ulcer Cleansing Rinsed/ Irrigated with Saline -Foul Odor after Cleansing No -Bioengineered Tissue No -Bleeding Controlled with Pressure -Offloading No -Treatment Response Procedure Tolerated Well -Debridement - Muscle / Fascia, 1st Yes 20sq cm Pain Scale: 0-10 Numeric Is Patient Pain Free? Yes - Nurse 3 - General Ulcer D/C NN Start: 05/19/21 10:56 Freq: Status: Active Protocol: Activity Type Activity Date Activity User E-Sign Co-Sign Detail Recorded Client Recorded Date Recorded By Document 05/19/21 11:47 DEBORAH [id number] 05/19/21 11:48 DEBORAH 05/19/21 11:47 Wound Care Nurse 3 #8 L Ischium -Ulcer Cleansing Rinsed/ Irrigated with Saline -Foul Odor after Cleansing No -Primary Dressing Applied Aquacel AG 4x4 -Primary Dressing Covered/Secured with Dry Gauze, Secured with Tape -Aquacel AG 4x4 1 #7 R Ischium -Ulcer Cleansing Rinsed/ Irrigated with Saline -Foul Odor after Cleansing No -Primary Dressing Applied Aquacel AG 4x4 -Primary Dressing Covered/Secured with Dry Gauze, Secured with Tape -Aquacel AG 4x4 0 Pain Scale: 0-10 Numeric Is Patient Pain Free? Yes WC - Visit Discharge Discharge Condition Stable Ambulatory Status Wheelchair Transportation Private Auto Medication Reconcilliation completed & Yes provided to patient/care provider Clinical Summary of Care Provided Yes Wound debrided: Ischial ulcer Laterality: Left Wound Grade/Stage: Stage IV Type of Debridement: Excisional debridement Anesthesia Used: 5% Lidocaine Gel Depth: Down to and including healthy tissue, in the subcutaneous layer and to muscle Percentage of wound debrided: 100 Instrument Used: 5mm curette Tissue Removed: Subcutaneous tissue and slough, there's deeper rim around the edge of ulcer Severity: Fat Layer Exposed Amount of bleeding with debridement: Mild Bleeding Controlled with: Pressure Patient tolerated procedure: Patient tolerated procedure well Additional Wound Wound debrided: Ischial ulcer cluster Laterality: Right Type of Debridement: Excisional debridement Anesthesia Used: 5% Lidocaine Gel Depth: Down to and including healthy tissue, in the subcutaneous layer and to muscle Percentage of wound debrided: 100 Instrument Used: 3mm curette Tissue Removed: Subcutaneous tissue and slough into the muscle. Severity: Fat Layer Exposed Amount of bleeding with debridement: Mild Bleeding Controlled with: Pressure Patient tolerated procedure: Patient tolerated procedure well Assessment/Plan Assessment/Plan (1) Pressure sore of left ischium, stage 4: CODE(S): L89.324 - Pressure ulcer of left buttock, stage 4 (2) Right ischial pressure sore, stage 4: CODE(S): L89.314 - Pressure ulcer of right buttock, stage 4 (3) Paraplegia at T4 level: CODE(S): G82.20 - Paraplegia, unspecified (4) Chronic osteomyelitis, pelvis: CODE(S): M86.659 - Other chronic osteomyelitis, unspecified thigh (5) Severe protein-calorie malnutrition: CODE(S): E43 - Unspecified severe protein-calorie malnutrition (6) History of MRSA infection: CODE(S): Z86.14 - Personal history of Methicillin resistant Staphylococcus aureus infection (7) History of tobacco use: CODE(S): Z87.891 - Personal history of nicotine dependence PLAN: Wound care - Rinse with Dakin's solution, then place silver alginate covered by ABD, DAILY, to both ulcers. Wound culture obtained on 01/20/21, he was positive for Proteus mirabilis, Cornybacterium minutissimum and Bacteroides fragilis. Due to the resistant organisms and his allergies, he was referred to ID for antibiotic treatment. He was started on Cefdinir, Doxycycline and Flagyl all for 14 days, which he completed. Wound culture from 11/01/20 was positive for MRSA, E. coli, Proteus Mirabilis. He was treated with Augmentin and doxycycline for 6 weeks. He tolerated the antibiotics well. Encourage nutritional supplementation with protein to help the healing process. Encouraged the patient to stop smoking as it may have deleterious effects on wound healing. He states he is having a mucous-like drainage from his right ischial ulcer with a strong odor. No drainage visualized today. Most likely this is coming from his rectum. Patient is insistent that it is not. Right ischial ulcer without tunneling that can be found. Will discuss with Dr. Urban of follow-up with patient. Followup 3 weeks.
[2021-06-09 11:21] VITALS: BP 109/62; PULSE 101; RESP 18; TEMP 36.3; BMI 19.8
--- NOTE | 2021-06-09 12:44 | PCM.WC.PN ---
History of Present Illness Date of Service: 06/09/21 Chief Complaint: Bilateral ischial pressure sores, Stage IV. History of Wound: Surgery 04/08/20 - 1. Excision bleeding right ischial/perineal pressure sore, Stage IV. 2. Control of prostatic bleeding with electrocautery and Surgicel hemostat. Wound Care - Rinse ulcers with Dakin's solution and then cover Silver alginate dressing covered with gauze daily. Wound culture from 01/20/21 positive for Proteus mirabilis, Cornybacterium minutissium and Bacteroides fragilis. He was referred to ID for antibiotic management, which he was placed on Cefdinir, Doxycycline and Flagyl for 10 days. Patient has long standing bilateral ischial pressure sores, Stage IV, with the left side extending to the femoral head and the right side extending to the perineal area and the prostate. Surgery would entail quite extensive excision with amputations at a tertiary center. Patient does not want to pursue any heroic surgeries at this time since it is not a guarantee his pressure issues won't recur. With aggressive amputations, his already tenuous balance would be even more disrupted. At the present time, we are providing conservative care on a monthly basis. He states his right leg gets in the way when transferring. He underwent a right AKA on 06/12/20 in [place]. Wound culture was done on 04/22/20. It showed Morganella morganii, Pseudomonas aeroginosa, Streptococcus group F, and Bacteroides fragilis. He has a lot of antibiotic allergies. His only real option is IV antibiotics. Dr. Chester also saw him at the [facility] and felt the wounds were colonized and held off on antibiotics at this time. If his clinical situation were to change, then would re-evaluate him for IV antibiotics at that time. Wound culture from 11/01/20 was positive for MRSA, E. coli, Proteus Mirabilis. He was treated with Augmentin and doxycycline. Wound care - Daily aquacel -ag covered with ABDs. He will rinse the ulers with Dakin's solution. Today he denies any fever. He states his appetite is ok. Progress of Wound: Stable Objective Data Objective Data Vital Signs: Vital Signs Temp Pulse Resp BP 97.4 F L 101 H 18 109/62 06/09/21 11:21 06/09/21 11:21 06/09/21 11:21 06/09/21 11:21 Body Mass Index (BMI) 19.8 Charges/Coding Procedures Integumentary 111xxx-113xx: 52843 Manisha musc/fascia 20 sq cm/< Add On Codes: 19774 Manisha musc/fascia add-on (x2) Physical Exam Const alert and oriented x3 General Appearance: cooperative HEENT normocephalic Head and Scalp: atraumatic Eyes PERRL Lymph Lymphatic: no lymphedema noted Resp normal respiratory effort Cardio regular rhythm GI non-tender Palpation: soft Extremity normal capillary refill Skin Wound Narrative: Left ischial ulcer is stable, it has tunneling around the perimeter of the ulcer into the muscle. When he moves, there is clear synovial fluid that drains from his hip. The right ischial ulcer is stable with thickened scarring surrounding it. No tunneling visualized. Neuro CN's II-XII intact bilaterally Psych Appearance: grossly normal Debridement Note Debridement Note Post-Debridement Measurements and Additional Note: Post-Debridement Measurements/Treatment - Nurse 1 - General Ulcer Assessment Start: 05/19/21 10:56 Freq: Status: Active Protocol: WILLIAMS Activity Type Activity Date Activity User E-Sign Co-Sign Detail Recorded Client Recorded Date Recorded By Document 05/19/21 10:56 DL [id number] 05/19/21 11:06 DL Document 06/09/21 11:21 DL [id number] 06/09/21 11:29 DL 05/19/21 06/09/21 10:56 11:21 - Today's Visit Information Type of service Follow-up Visit Follow-up Visit (Physician/CHILD SUPPORT INVESTIGATOR (Physician/CHILD SUPPORT INVESTIGATOR ) ) Arrival Mode Wheelchair Wheelchair Transfer Assistance None Manual Transfer Assist (Other) x1 Patient Identification Verified (Name & Yes Yes ) Patient Requires Transmission-Based No No Precautions Height and Weight Body Mass Index (BMI) 19.8 19.8 BMI Classification Normal Normal Vital Signs Temperature (97.8 F-99.1 F) 98.3 F 97.4 F L Temperature Source Temporal Temporal Pulse Rate (60-100) 105 H 101 H Pulse Location Monitor Monitor Respiratory Rate (12-18) 20 H 18 Respiratory rate source Observation Observation Blood Pressure (90/60-120/80) 110/63 109/62 Blood Pressure Mean (mm Hg) 78 77 Source Monitor Monitor History Since Last Visit- (Skip if this is Patient's initial visit) Have you changed medications since your No No last visit? Any new allergies or adverse reactions No No Had a fall/change in ADL's that may No No increase risk of falls Signs or symptoms of abuse and/or No No neglect since last visit Have you been in the hospital since your No No last visit? Has dressing in place as prescribed Yes Yes Has compression in place as prescribed N/A N/A Has offloadiing in place as prescribed Yes Yes Experienced any changes in pain level or No No management Pain Scale: 0-10 Numeric Is Patient Pain Free? Yes Yes WC - Nurse 1 - General Ulcer Measurement Start: 05/19/21 10:56 Freq: Status: Active Protocol: Activity Type Activity Date Activity User E-Sign Co-Sign Detail Recorded Client Recorded Date Recorded By Document 05/19/21 10:56 DL [id number] 05/19/21 11:06 DL Document 06/09/21 11:21 DL [id number] 06/09/21 11:29 DL 05/19/21 06/09/21 10:56 11:21 Wound Center Nurse 1 #8 L Ischium -Current Size (cm) - Length 6.6 6 -Current Size (cm) - Width 5.8 6 -Current Size (cm) - Depth 0.6 0.4 -Total Square Cm 38.28 36 -Photo Taken No No -Exudate Amt Medium Medium -Wound Margin Thickened & Thickened & Rolled Under Rolled Under -Granulation Amt Medium (34-66%) Large (67-100%) -Granulation Quality Pale,Girard Pale,Girard -Necrosis Amt Small (1-33%) -Necrotic Tissue Type Adherent Slough Adherent Slough -Structure Exposed N/A N/A -Texture (Steffi-wound Skin Appearance) Scarring Scarring -Moisture (Stefif-wound Skin Appearance) Maceration Maceration -Color (Steffi-wound Skin Appearance) No Abnormality No Abnormality -Temperature (Steffi-wound Skin No Abnormality Appearance) (Pt Warm) -Tenderness on Palpation (Steffi-wound No Skin Appearance) -Ulcer Cleansing Rinsed/ Rinsed/ Irrigated with Irrigated with Saline Saline -Foul Odor after Cleansing No No -Anesthetic Used 4% Lidocaine Solution #7 R Ischium -Current Size (cm) - Length 0.5 1 -Current Size (cm) - Width 0.7 0.6 -Current Size (cm) - Depth 0.1 0.2 -Total Square Cm 0.35 0.6 -Photo Taken No No -Exudate Amt Small Small -Exudate Type Serosanguineous -Wound Margin Thickened & Thickened Rolled Under -Granulation Amt Small (1-33%) Small (1-33%) -Granulation Quality Girard Girard -Necrosis Amt Small (1-33%) Small (1-33%) -Necrotic Tissue Type Eschar Adherent Slough -Structure Exposed N/A N/A -Texture (Steffi-wound Skin Appearance) Scarring Scarring -Moisture (Steffi-wound Skin Appearance) Maceration Maceration -Color (Steffi-wound Skin Appearance) No Abnormality -Temperature (Steffi-wound Skin No Abnormality No Abnormality Appearance) (Pt Warm) (Pt Warm) -Tenderness on Palpation (Steffi-wound No No Skin Appearance) -Ulcer Cleansing Rinsed/ Rinsed/ Irrigated with Irrigated with Saline Saline -Foul Odor after Cleansing No No WC - Nurse 2 - General Ulcer CM Notes Start: 05/19/21 10:56 Freq: Status: Active Protocol: Activity Type Activity Date Activity User E-Sign Co-Sign Detail Recorded Client Recorded Date Recorded By Document 05/19/21 11:30 JF [id number] 05/19/21 11:44 JF Edit Result 05/19/21 11:30 JF (1) [id number] 05/19/21 11:45 JF Edit Result 05/19/21 11:30 JF (2) [id number] 05/22/21 11:11 PL Document 06/09/21 11:36 JF [id number] 06/09/21 11:49 JF Edit Result 06/09/21 11:36 JF (3) [id number] 06/09/21 11:51 JF (1) #8 L Ischium - Debridement, Muscle/Fascia, ea addt'l 2 => 3 20sq cm or part thereof (2) #7 R Ischium - Debridement - Muscle / Fascia, 1st Yes => No 20sq cm (3) #8 L Ischium - Bleeding Controlled with Pressure => Pressure,Silver => Nitrate 05/19/21 06/09/21 11:30 11:36 Wound Center Nurse 2 #8 L Ischium -Time 11:30 11:36 -Correct Patient Yes Yes -Correct Side, Site, Position Yes Yes -Correct Procedure Yes Yes -Procedure Performed Yes Yes -Type of Procedure Debridement Debridement -Clinical Debridement Muscle / Fascia Muscle / Fascia -Tissue Removed Muscle Muscle -Post Debridement (cm) - Length 7 7 -Post Debridement (cm) - Width 7 6 -Post Debridement (cm) - Depth 1 1 -Total Square (Post) (cm) 49 42 -Area of Debridement (cm) - Length 7 7 -Area of Debridement (cm) - Width 7 6 -Total Square (Area) (cm) 49 42 -Tunneling No No -Undermining/Tunneling No No -Circular Undermining No No -Wound/Ulcer Outcome Not Healed Not Healed -Ulcer Cleansing Rinsed/ Rinsed/ Irrigated with Irrigated with Saline Saline -Foul Odor after Cleansing No No -Bioengineered Tissue No No -Bleeding Controlled with Pressure Pressure,Silver Nitrate -Offloading No No -Treatment Response Procedure Procedure Tolerated Well Tolerated Well -Debridement - Muscle / Fascia, 1st Yes Yes 20sq cm -Debridement, Muscle/Fascia, ea addt'l 3 2 20sq cm or part thereof #7 R Ischium -Time 11:31 11:36 -Correct Patient Yes Yes -Correct Side, Site, Position Yes Yes -Correct Procedure Yes Yes -Procedure Performed Yes Yes -Type of Procedure Debridement Debridement -Clinical Debridement Muscle / Fascia Muscle / Fascia -Tissue Removed Muscle Muscle -Post Debridement (cm) - Length 4 1.4 -Post Debridement (cm) - Width 3 1 -Post Debridement (cm) - Depth 1 0.3 -Total Square (Post) (cm) 12 1.4 -Area of Debridement (cm) - Length 4 1.4 -Area of Debridement (cm) - Width 3 1 -Total Square (Area) (cm) 12 1.4 -Tunneling No No -Undermining/Tunneling No No -Circular Undermining No No -Wound/Ulcer Outcome Not Healed Not Healed -Ulcer Cleansing Rinsed/ Rinsed/ Irrigated with Irrigated with Saline Saline -Foul Odor after Cleansing No No -Bioengineered Tissue No No -Bleeding Controlled with Pressure Pressure -Offloading No No -Treatment Response Procedure Procedure Tolerated Well Tolerated Well -Debridement - Muscle / Fascia, 1st No No 20sq cm Pain Scale: 0-10 Numeric Is Patient Pain Free? Yes Yes - Nurse 3 - General Ulcer D/C NN Start: 05/19/21 10:56 Freq: Status: Active Protocol: Activity Type Activity Date Activity User E-Sign Co-Sign Detail Recorded Client Recorded Date Recorded By Document 05/19/21 11:47 DEBORAH [id number] 05/19/21 11:48 Document 06/09/21 12:08 DL [id number] 06/09/21 12:09 DL 05/19/21 06/09/21 11:47 12:08 Wound Care Nurse 3 #8 L Ischium -Ulcer Cleansing Rinsed/ Wound Cleanser Irrigated with Saline -Foul Odor after Cleansing No No -Primary Dressing Applied Aquacel AG 4x4 Aquacel AG 4x4 -Primary Dressing Covered/Secured with Dry Gauze, Dry Gauze, Secured with Secured with Tape Tape -Aquacel AG 4x4 1 1 #7 R Ischium -Ulcer Cleansing Rinsed/ Wound Cleanser Irrigated with Saline -Foul Odor after Cleansing No -Primary Dressing Applied Aquacel AG 4x4 -Other Dressing aqaucel ag -Primary Dressing Covered/Secured with Dry Gauze, Dry Gauze, Secured with Secured with Tape Tape -Aquacel AG 4x4 0 Treatment Response Procedure Tolerated Well Pain Scale: 0-10 Numeric Is Patient Pain Free? Yes Yes WC - Visit Discharge Discharge Condition Stable Stable Ambulatory Status Wheelchair Wheelchair Transportation Private Auto Private Auto Medication Reconcilliation completed & Yes provided to patient/care provider Clinical Summary of Care Provided Yes Wound debrided: Ischial ulcer Laterality: Left Wound Grade/Stage: Stage IV Type of Debridement: Excisional debridement Anesthesia Used: 4% Lidocaine Solution Depth: Down to and including healthy tissue, in the subcutaneous layer and to muscle Percentage of wound debrided: 100 Instrument Used: 5mm curette Tissue Removed: Subcutaneous tissue and slough, into the muscle in the tunneled areas Severity: Fat Layer Exposed Amount of bleeding with debridement: Moderate Bleeding Controlled with: Pressure, Compression and gauze and Silver Nitrate (Several areas needed silver nitrate to stop the ooozing of bleeding. ) Patient tolerated procedure: Patient tolerated procedure well Additional Wound Wound debrided: ischial ulcer Laterality: Right Type of Debridement: Excisional debridement Anesthesia Used: 4% Lidocaine Solution Depth: Down to and including healthy tissue, in the subcutaneous layer and to muscle Percentage of wound debrided: 100 Instrument Used: 3mm curette Tissue Removed: Subcutaneous tissue and slough, into the muscle. Bleeding Controlled with: Pressure and Compression and gauze Patient tolerated procedure: Patient tolerated procedure well Assessment/Plan Assessment/Plan (1) Pressure sore of left ischium, stage 4: CODE(S): L89.324 - Pressure ulcer of left buttock, stage 4 (2) Right ischial pressure sore, stage 4: CODE(S): L89.314 - Pressure ulcer of right buttock, stage 4 (3) Paraplegia at T4 level: CODE(S): G82.20 - Paraplegia, unspecified (4) Chronic osteomyelitis, pelvis: CODE(S): M86.659 - Other chronic osteomyelitis, unspecified thigh (5) Severe protein-calorie malnutrition: CODE(S): E43 - Unspecified severe protein-calorie malnutrition (6) History of MRSA infection: CODE(S): Z86.14 - Personal history of Methicillin resistant Staphylococcus aureus infection (7) History of tobacco use: CODE(S): Z87.891 - Personal history of nicotine dependence PLAN: Wound care - Rinse with Dakin's solution, then place silver alginate covered by ABD, DAILY, to both ulcers. Wound culture obtained on 01/20/21, he was positive for Proteus mirabilis, Cornybacterium minutissimum and Bacteroides fragilis. Due to the resistant organisms and his allergies, he was referred to ID for antibiotic treatment. He was started on Cefdinir, Doxycycline and Flagyl all for 14 days, which he completed. Wound culture from 11/01/20 was positive for MRSA, E. coli, Proteus Mirabilis. He was treated with Augmentin and doxycycline for 6 weeks. He tolerated the antibiotics well. Encourage nutritional supplementation with protein to help the healing process. Encouraged the patient to stop smoking as it may have deleterious effects on wound healing. He states he is having a mucous-like drainage from his right ischial ulcer with a strong odor. No drainage visualized today. Most likely this is coming from his rectum. Patient is insistent that it is not. Right ischial ulcer without tunneling that can be found. Discussed with Dr. Urban and his suggesting further evaluation at a tertiary hospital. The patient states he does not have free transportation to go to a larger hospital. His mucous drainage is worse after he eats and drinks. Referring him to [facility] for further evaluation of his symptoms. Followup 3 weeks.
== END 2021-06-10 23:59 ==
LOC: WC 11:00
PROVIDERS: PCP Internal Medicine; Visit Provider Nurse Practitioner Family
DX: L89.224 Pressure ulcer of left hip, stage 4 (principal); L89.214 Pressure ulcer of right hip, stage 4; Z89.611 Acquired absence of right leg above knee; Z86.14 Personal history of Methicillin resistant Staphylococcus aureus infection; M86.659 Other chronic osteomyelitis, unspecified thigh; Z87.891 Personal history of nicotine dependence; E43 Unspecified severe protein-calorie malnutrition; G82.20 Paraplegia, unspecified
CPT/HCPCS: 11043; 11046

== ENCOUNTER 2021-08-04 11:00 | Outpatient (RCR) | payer MEDICARE, MEDICAID, SELFPAY ==
[2021-06-11 00:27] VITALS: BP 109/62; PULSE 101; RESP 18; TEMP 36.3; BMI 19.8
[2021-07-14 11:10] VITALS: BP 112/70; PULSE 88; TEMP 36.2; BMI 19.8
--- NOTE | 2021-07-14 12:59 | PCM.WC.PN ---
History of Present Illness Date of Service: 07/14/21 Chief Complaint: Bilateral ischial pressure sores, Stage IV. History of Wound: Surgery 04/08/20 - 1. Excision bleeding right ischial/perineal pressure sore, Stage IV. 2. Control of prostatic bleeding with electrocautery and Surgicel hemostat. Wound Care - Rinse ulcers with Dakin's solution and then cover Silver alginate dressing covered with gauze daily. Wound culture from 01/20/21 positive for Proteus mirabilis, Cornybacterium minutissium and Bacteroides fragilis. He was referred to ID for antibiotic management, which he was placed on Cefdinir, Doxycycline and Flagyl for 10 days. Patient has long standing bilateral ischial pressure sores, Stage IV, with the left side extending to the femoral head and the right side extending to the perineal area and the prostate. Surgery would entail quite extensive excision with amputations at a tertiary center. Patient does not want to pursue any heroic surgeries at this time since it is not a guarantee his pressure issues won't recur. With aggressive amputations, his already tenuous balance would be even more disrupted. At the present time, we are providing conservative care on a monthly basis. He states his right leg gets in the way when transferring. He underwent a right AKA on 06/12/20 in [place]. Wound culture was done on 04/22/20. It showed Morganella morganii, Pseudomonas aeroginosa, Streptococcus group F, and Bacteroides fragilis. He has a lot of antibiotic allergies. His only real option is IV antibiotics. Dr. Chester also saw him at the [facility] and felt the wounds were colonized and held off on antibiotics at this time. If his clinical situation were to change, then would re-evaluate him for IV antibiotics at that time. Wound culture from 11/01/20 was positive for MRSA, E. coli, Proteus Mirabilis. He was treated with Augmentin and doxycycline. Today he denies any fever. He states his appetite is ok. Progress of Wound: Stable. Objective Data Objective Data Vital Signs: Vital Signs Temp Pulse Resp BP 97.2 F L 88 18 112/70 07/14/21 11:10 07/14/21 11:10 06/11/21 00:27 07/14/21 11:10 Body Mass Index (BMI) 19.8 Charges/Coding Procedures Integumentary 111xxx-113xx: [id number] Manisha subq tissue 20 sq cm/< Add On Codes: 38313 Manisha subq tissue add-on (x2) Physical Exam Const alert and oriented x3 General Appearance: cooperative HEENT normocephalic Resp normal respiratory effort Cardio regular rate GI non-tender Extremity normal capillary refill Skin Wound Narrative: Left and right ischial ulcers are stable Neuro CN's II-XII intact bilaterally Debridement Note Debridement Note Wound debrided: Ischial ulcer Laterality: Left Wound Grade/Stage: Stage IV Type of Debridement: Excisional debridement Anesthesia Used: 4% Lidocaine Solution Depth: Down to and including healthy tissue and in the subcutaneous layer Percentage of wound debrided: 100 Instrument Used: 7mm curette Tissue Removed: Subcutaneous tissue and slough Severity: Fat Layer Exposed Amount of bleeding with debridement: Mild Bleeding Controlled with: Pressure and Compression and gauze Patient tolerated procedure: Patient tolerated procedure well Debridement Free Text: Dry scabbing present around the edge. He has increase depth around the edges where there is synovial fluid that will leak with movement. Post-Debridement Measurements and Additional Note: Post-Debridement Measurements/Treatment WC - Nurse 1 - General Ulcer Assessment Start: 07/14/21 11:07 Freq: Status: Active Protocol: WC.LOWDANIELITOT Activity Type Activity Date Activity User E-Sign Co-Sign Detail Recorded Client Recorded Date Recorded By Document 07/14/21 11:10 SALOME [id number] 07/14/21 11:17 SALOME 07/14/21 11:10 - Today's Visit Information Type of service Follow-up Visit (Physician/COUNSELLING PSYCHOLOGIST ) Arrival Mode Wheelchair Transfer Assistance Manual Patient Identification Verified (Name & Yes ) Patient Requires Transmission-Based No Precautions Height and Weight Body Mass Index (BMI) 19.8 BMI Classification Normal Vital Signs Temperature (97.8 F-99.1 F) 97.2 F L Temperature Source Temporal Pulse Rate (60-100) 88 Pulse Location Monitor Blood Pressure (90/60-120/80) 112/70 Blood Pressure Mean (mm Hg) 84 Source Monitor History Since Last Visit- (Skip if this is Patient's initial visit) Have you changed medications since your No last visit? Any new allergies or adverse reactions No Had a fall/change in ADL's that may No increase risk of falls Signs or symptoms of abuse and/or No neglect since last visit Have you been in the hospital since your No last visit? Has dressing in place as prescribed Yes Has compression in place as prescribed N/A Has offloadiing in place as prescribed Yes Experienced any changes in pain level or No management WC - Nurse 1 - General Ulcer Measurement Start: 07/14/21 11:07 Freq: Status: Active Protocol: Activity Type Activity Date Activity User E-Sign Co-Sign Detail Recorded Client Recorded Date Recorded By Document 07/14/21 11:10 SALOME [id number] 07/14/21 11:17 SALOME 07/14/21 11:10 Wound Center Nurse 1 #8 L Ischium -Combined with other wound No -Current Size (cm) - Length 6.4 -Current Size (cm) - Width 6 -Current Size (cm) - Depth 2.2 -Total Square Cm 38.4 -Photo Taken No -Tunneling No -Undermining/Tunneling No -Circular Undermining No -Exudate Amt Medium -Exudate Type Serosanguineous -Wound Margin Distinct, Outline Attached -Granulation Amt Large (67-100%) -Granulation Quality Broughton,Red -Necrosis Amt Medium (34-66%) -Necrotic Tissue Type Adherent Slough -Structure Exposed Tendon,Muscle -Texture (Steffi-wound Skin Appearance) No Abnormality, Assessed -Moisture (Steffi-wound Skin Appearance) Assessed, Maceration -Color (Steffi-wound Skin Appearance) No Abnormality, Assessed -Temperature (Steffi-wound Skin No Abnormality Appearance) (Pt Warm) -Tenderness on Palpation (Steffi-wound No Skin Appearance) -Ulcer Cleansing Soap and Water -Foul Odor after Cleansing No #7 R Ischium -Combined with other wound No -Current Size (cm) - Length 1.4 -Current Size (cm) - Width 1.2 -Current Size (cm) - Depth 0.4 -Total Square Cm 1.68 -Photo Taken No -Epithelialization None Present -Tunneling No -Undermining/Tunneling No -Circular Undermining No -Classification - Thickness Full Thickness with Exposed Support Structure -Change in Wound Grade/Stage No -Exudate Amt Small -Exudate Type Serosanguineous -Wound Margin Distinct, Outline Attached -Granulation Quality Hyper- granulation, Broughton,Red -Slough/Fibrin Yes -Necrosis Amt Medium (34-66%) -Necrotic Tissue Type Adherent Slough -Structure Exposed N/A -Texture (Steffi-wound Skin Appearance) No Abnormality, Assessed -Moisture (Steffi-wound Skin Appearance) No Abnormality, Assessed -Color (Steffi-wound Skin Appearance) No Abnormality, Assessed -Temperature (Steffi-wound Skin No Abnormality Appearance) (Pt Warm) -Tenderness on Palpation (Steffi-wound No Skin Appearance) -Ulcer Cleansing Soap and Water -Foul Odor after Cleansing No WC - Nurse 2 - General Ulcer CM Notes Start: 07/14/21 11:07 Freq: Status: Active Protocol: Activity Type Activity Date Activity User E-Sign Co-Sign Detail Recorded Client Recorded Date Recorded By Document 07/14/21 11:33 DEBORAH [id number] 07/14/21 11:51 DEBORAH 07/14/21 11:33 Wound Center Nurse 2 #8 L Ischium -Time 11:38 -Correct Patient Yes -Correct Side, Site, Position Yes -Correct Procedure Yes -Procedure Performed Yes -Type of Procedure Debridement -Clinical Debridement Subcutaneous -Tissue Removed Subcutaneous -Post Debridement (cm) - Length 6.5 -Post Debridement (cm) - Width 6.5 -Post Debridement (cm) - Depth 2 -Total Square (Post) (cm) 42.25 -Area of Debridement (cm) - Length 6.5 -Area of Debridement (cm) - Width 6.5 -Total Square (Area) (cm) 42.25 -Tunneling No -Undermining/Tunneling No -Circular Undermining No -Wound/Ulcer Outcome Not Healed -Ulcer Cleansing Rinsed/ Irrigated with Saline -Foul Odor after Cleansing No -Bioengineered Tissue No -Bleeding Controlled with Pressure -Offloading No -Treatment Response Procedure Tolerated Well -Debridement - Subq, 1st 20sq cm Yes #7 R Ischium -Time 11:38 -Correct Patient Yes -Correct Side, Site, Position Yes -Correct Procedure Yes -Procedure Performed Yes -Type of Procedure Debridement -Clinical Debridement Subcutaneous -Tissue Removed Subcutaneous -Post Debridement (cm) - Length 2.8 -Post Debridement (cm) - Width 1.4 -Post Debridement (cm) - Depth 0.2 -Total Square (Post) (cm) 3.92 -Area of Debridement (cm) - Length 2.8 -Area of Debridement (cm) - Width 1.4 -Total Square (Area) (cm) 3.92 -Tunneling No -Undermining/Tunneling No -Circular Undermining No -Wound/Ulcer Outcome Not Healed -Ulcer Cleansing Rinsed/ Irrigated with Saline -Foul Odor after Cleansing No -Bioengineered Tissue No -Bleeding Controlled with Pressure -Offloading No -Treatment Response Procedure Tolerated Well -Debridement - Subq, 1st 20sq cm Yes -Debridement, SubQ, ea addt'l 20sq cm 2 or part thereof WC - Nurse 3 - General Ulcer D/C NN Start: 07/14/21 11:07 Freq: Status: Active Protocol: Activity Type Activity Date Activity User E-Sign Co-Sign Detail Recorded Client Recorded Date Recorded By Document 07/14/21 11:57 SALOME [id number] 07/14/21 11:58 AK 07/14/21 11:57 Wound Care Nurse 3 #8 L Ischium -Ulcer Cleansing Rinsed/ Irrigated with Saline -Foul Odor after Cleansing No -Negative Pressure Wound Therapy N/A -Primary Dressing Applied Silvercel -Other Dressing ABD -Primary Dressing Covered/Secured with Secured with Tape -Silvercel 1 #7 R Ischium -Ulcer Cleansing Rinsed/ Irrigated with Saline -Foul Odor after Cleansing No -Negative Pressure Wound Therapy N/A -Primary Dressing Applied Silvercel -Other Dressing abd -Primary Dressing Covered/Secured with Secured with Tape -Silvercel 0 WC - Visit Discharge Discharge Condition Stable Ambulatory Status Wheelchair Medication Reconcilliation completed & No provided to patient/care provider Clinical Summary of Care Provided Yes Additional Wound Wound debrided: Ischial ulcer Laterality: Right Wound Grade/Stage: Stage IV Type of Debridement: Excisional debridement Anesthesia Used: 4% Lidocaine Solution Depth: Down to and including healthy tissue and in the subcutaneous layer Percentage of wound debrided: 100 Instrument Used: 3mm curette Tissue Removed: Increased slough and scar tissue curling around the edges. Severity: Fat Layer Exposed Amount of bleeding with debridement: Mild Bleeding Controlled with: Pressure and Compression and gauze Patient tolerated procedure: Patient tolerated procedure well Assessment/Plan Assessment/Plan (1) Pressure sore of left ischium, stage 4: CODE(S): L89.324 - Pressure ulcer of left buttock, stage 4 (2) Right ischial pressure sore, stage 4: CODE(S): L89.314 - Pressure ulcer of right buttock, stage 4 (3) Above-knee amputation of right lower extremity: CODE(S): S78.111A - Complete traumatic amputation at level between right hip and knee, initial encounter (4) Paraplegia at T4 level: CODE(S): G82.20 - Paraplegia, unspecified (5) Chronic osteomyelitis, pelvis: CODE(S): M86.659 - Other chronic osteomyelitis, unspecified thigh (6) Severe protein-calorie malnutrition: CODE(S): E43 - Unspecified severe protein-calorie malnutrition (7) History of MRSA infection: CODE(S): Z86.14 - Personal history of Methicillin resistant Staphylococcus aureus infection (8) History of tobacco use: CODE(S): Z87.891 - Personal history of nicotine dependence PLAN: Wound care - Rinse with Dakin's solution, then place moistened silver alginate covered by ABD, DAILY, to both ulcers. Wound culture obtained on 01/20/21, he was positive for Proteus mirabilis, Cornybacterium minutissimum and Bacteroides fragilis. Due to the resistant organisms and his allergies, he was referred to ID for antibiotic treatment. He was started on Cefdinir, Doxycycline and Flagyl all for 14 days, which he completed. Wound culture from 11/01/20 was positive for MRSA, E. coli, Proteus Mirabilis. He was treated with Augmentin and doxycycline for 6 weeks. He tolerated the antibiotics well. Encourage nutritional supplementation with protein to help the healing process. Encouraged the patient to stop smoking as it may have deleterious effects on wound healing. He states he is having a mucous-like drainage from his right ischial ulcer with a strong odor. No drainage visualized today. Most likely this is coming from his rectum. Patient is insistent that it is not. Right ischial ulcer without tunneling that can be found. Discussed with Dr. Urban and his suggesting further evaluation at a tertiary hospital. The patient states he does not have free transportation to go to a larger hospital. His mucous drainage is worse after he eats and drinks. Referring him to [facility] for further evaluation of his symptoms. Followup 3 weeks.
[2021-08-04 10:53] VITALS: BP 139/77; PULSE 116; TEMP 36.6; BMI 19.8
--- NOTE | 2021-08-04 12:50 | PN.PCM_ITS ---
History of Present Illness Date of Service: 08/04/21 Chief Complaint: Bilateral ischial pressure sores, Stage IV. History of Wound: Surgery 04/08/20 - 1. Excision bleeding right ischial/perineal pressure sore, Stage IV. 2. Control of prostatic bleeding with electrocautery and Surgicel hemostat. Wound Care - Rinse ulcers with Dakin's solution and then cover Silver alginate dressing covered with gauze daily. Wound culture from 01/20/21 positive for Proteus mirabilis, Cornybacterium minutissium and Bacteroides fragilis. He was referred to ID for antibiotic management, which he was placed on Cefdinir, Doxycycline and Flagyl for 10 days. Patient has long standing bilateral ischial pressure sores, Stage IV, with the left side extending to the femoral head and the right side extending to the perineal area and the prostate. Surgery would entail quite extensive excision with amputations at a tertiary center. Patient does not want to pursue any heroic surgeries at this time since it is not a guarantee his pressure issues won't recur. With aggressive amputations, his already tenuous balance would be even more disrupted. At the present time, we are providing conservative care on a monthly basis. He states his right leg gets in the way when transferring. He underwent a right AKA on 06/12/20 in [place]. Wound culture was done on 04/22/20. It showed Morganella morganii, Pseudomonas aeroginosa, Streptococcus group F, and Bacteroides fragilis. He has a lot of antibiotic allergies. His only real option is IV antibiotics. Dr. Chester also saw him at the [facility] and felt the wounds were colonized and held off on antibiotics at this time. If his clinical situation were to change, then would re-evaluate him for IV antibiotics at that time. Wound culture from 11/01/20 was positive for MRSA, E. coli, Proteus Mirabilis. He was treated with Augmentin and doxycycline. Today he denies any fever. He states his appetite is ok. Progress of Wound: Stable. Subjective Subjective Patient states he has an appointment late this week with SHAHBAZ Moon. He states he continues to have a mucous drainage from his right ischial ulcer on an occasion. He states that he feels his stomach feel upset and then he ends up with the drainage from the left ischial ulcer. The ulcer also has an odor per Pernell. Objective Data Objective Data Vital Signs: Vital Signs Temp Pulse Resp BP 97.8 F 116 H 18 139/77 H 08/04/21 10:53 08/04/21 10:53 06/11/21 00:27 08/04/21 10:53 Body Mass Index (BMI) 19.8 Charges/Coding Procedures Integumentary 111xxx-113xx: 43242 Manisha musc/fascia 20 sq cm/< Add On Codes: 67349 Manisha musc/fascia add-on (x2) Physical Exam Const alert and oriented x3 General Appearance: cooperative HEENT normocephalic Lymph Lymphatic: no lymphedema noted Resp normal respiratory effort Cardio regular rate GI Palpation: soft Extremity normal capillary refill Skin Wound Narrative: Left ischial ulcer with scar tissue, he has tunneling around the edges. When he moves his hip a certain way, he drains clear synovial fluid from the ulcer. Right ischial ulcer is stable with thickened scar tissue around the edges. Base of ulcer is beefy pink. No sign of tunneling, not sign of mucous drainage. No odor. Neuro CN's II-XII intact bilaterally Psych Appearance: grossly normal Debridement Note Debridement Note Wound debrided: Ischial ulcer Laterality: Left Wound Grade/Stage: Stage IV Type of Debridement: Excisional debridement Anesthesia Used: 4% Lidocaine Solution Depth: Down to and including healthy tissue, in the subcutaneous layer and to muscle Percentage of wound debrided: 100 Instrument Used: 5mm curette Tissue Removed: Subcutaneous tissue and slough, into the muscle. Severity: Fat Layer Exposed Amount of bleeding with debridement: Mild Bleeding Controlled with: Compression and gauze and Silver Nitrate (at 6 o'clock, needed to use silver nitrate to help stop the oozing, along with pressure.) Patient tolerated procedure: Patient tolerated procedure well Post-Debridement Measurements and Additional Note: Post-Debridement Measurements/Treatment WC - Nurse 1 - General Ulcer Assessment Start: 07/14/21 11:07 Freq: Status: Active Protocol: WILLIAMS Activity Type Activity Date Activity User E-Sign Co-Sign Detail Recorded Client Recorded Date Recorded By Document 07/14/21 11:10 AK [id number] 07/14/21 11:17 AK Document 08/04/21 10:53 MENDEZ [id number] 08/04/21 10:58 KR 07/14/21 08/04/21 11:10 10:53 - Today's Visit Information Type of service Follow-up Visit Follow-up Visit (Physician/MECHANICAL SYSTEMS DESIGNER (Physician/MECHANICAL SYSTEMS DESIGNER ) ) Arrival Mode Wheelchair Wheelchair Transfer Assistance Manual Patient Identification Verified (Name & Yes Yes ) Patient Requires Transmission-Based No Precautions Height and Weight Body Mass Index (BMI) 19.8 19.8 BMI Classification Normal Normal Vital Signs Temperature (97.8 F-99.1 F) 97.2 F L 97.8 F Temperature Source Temporal Temporal Pulse Rate (60-100) 88 116 H Pulse Location Monitor Monitor Blood Pressure (90/60-120/80) 112/70 139/77 H Blood Pressure Mean (mm Hg) 84 97 Source Monitor Monitor Position Semi-Fowlers Blood Pressure Location Right Arm History Since Last Visit- (Skip if this is Patient's initial visit) Have you changed medications since your No No last visit? Any new allergies or adverse reactions No No Had a fall/change in ADL's that may No No increase risk of falls Signs or symptoms of abuse and/or No No neglect since last visit Have you been in the hospital since your No No last visit? Has dressing in place as prescribed Yes Yes Has compression in place as prescribed N/A Has offloadiing in place as prescribed Yes Experienced any changes in pain level or No No management Left Footwear Regular Shoe Right Footwear Regular Shoe Pain Scale: 0-10 Numeric Is Patient Pain Free? Yes - Nurse 1 - General Ulcer Measurement Start: 07/14/21 11:07 Freq: Status: Active Protocol: Activity Type Activity Date Activity User E-Sign Co-Sign Detail Recorded Client Recorded Date Recorded By Document 07/14/21 11:10 AK [id number] 07/14/21 11:17 AK Document 08/04/21 10:53 KR [id number] 08/04/21 10:58 KR 07/14/21 08/04/21 11:10 10:53 Wound Center Nurse 1 #8 L Ischium -Combined with other wound No -Current Size (cm) - Length 6.4 5.9 -Current Size (cm) - Width 6 7 -Current Size (cm) - Depth 2.2 0.9 -Total Square Cm 38.4 41.3 -Photo Taken No -Tunneling No -Undermining/Tunneling No -Undermining/Tunneling Starts (O'clock 9 ) -Undermining/Tunneling Ends (O'clock) 10 -Maximum Distance (cm) 0.4 -Circular Undermining No -Exudate Amt Medium Medium -Exudate Type Serosanguineous Serosanguineous -Wound Margin Distinct, Distinct, Outline Outline Attached Attached -Granulation Amt Large (67-100%) Medium (34-66%) -Granulation Quality [place],Red [place],Red -Necrosis Amt Medium (34-66%) Medium (34-66%) -Necrotic Tissue Type Adherent Slough Adherent Slough -Structure Exposed Tendon,Muscle Fat Layer Exposed -Texture (Steffi-wound Skin Appearance) No Abnormality, Assessed, Assessed Scarring -Moisture (Steffi-wound Skin Appearance) Assessed, Assessed Maceration -Color (Steffi-wound Skin Appearance) No Abnormality, No Abnormality, Assessed Assessed -Temperature (Setffi-wound Skin No Abnormality No Abnormality Appearance) (Pt Warm) (Pt Warm) -Tenderness on Palpation (Steffi-wound No No Skin Appearance) -Ulcer Cleansing Soap and Water Rinsed/ Irrigated with Saline -Foul Odor after Cleansing No No -Anesthetic Used 4% Lidocaine Solution #7 R Ischium -Combined with other wound No -Current Size (cm) - Length 1.4 2.5 -Current Size (cm) - Width 1.2 0.4 -Current Size (cm) - Depth 0.4 0.4 -Total Square Cm 1.68 1.00 -Photo Taken No -Epithelialization None Present -Tunneling No -Tunneling Position (O'clock) 12 -Tunneling Distance (cm) 1.5 -Undermining/Tunneling No -Circular Undermining No -Classification - Thickness Full Thickness with Exposed Support Structure -Change in Wound Grade/Stage No -Exudate Amt Small Medium -Exudate Type Serosanguineous Serosanguineous -Wound Margin Distinct, Distinct, Outline Outline Attached Attached -Granulation Amt Medium (34-66%) -Granulation Quality Hyper- [place] granulation, [place],Red -Slough/Fibrin Yes -Necrosis Amt Medium (34-66%) Medium (34-66%) -Necrotic Tissue Type Adherent Slough Adherent Slough -Structure Exposed N/A Fat Layer Exposed -Texture (Steffi-wound Skin Appearance) No Abnormality, Assessed, Assessed Scarring -Moisture (Steffi-wound Skin Appearance) No Abnormality, No Abnormality, Assessed Assessed -Color (Steffi-wound Skin Appearance) No Abnormality, No Abnormality, Assessed Assessed -Temperature (Steffi-wound Skin No Abnormality No Abnormality Appearance) (Pt Warm) (Pt Warm) -Tenderness on Palpation (Steffi-wound No No Skin Appearance) -Ulcer Cleansing Soap and Water Rinsed/ Irrigated with Saline -Foul Odor after Cleansing No No -Anesthetic Used 4% Lidocaine Solution WC - Nurse 2 - General Ulcer CM Notes Start: 07/14/21 11:07 Freq: Status: Active Protocol: Activity Type Activity Date Activity User E-Sign Co-Sign Detail Recorded Client Recorded Date Recorded By Document 07/14/21 11:33 JF [id number] 07/14/21 11:51 JF Edit Result 07/14/21 11:33 JF (1) [id number] 07/16/21 10:37 PL Document 08/04/21 11:22 JF [id number] 08/04/21 11:32 JF (1) #7 R Ischium - Debridement - Subq, 1st 20sq cm Yes => No 07/14/21 08/04/21 11:33 11:22 Wound Center Nurse 2 #8 L Ischium -Time 11:38 11:23 -Correct Patient Yes Yes -Correct Side, Site, Position Yes Yes -Correct Procedure Yes Yes -Procedure Performed Yes Yes -Type of Procedure Debridement Debridement -Clinical Debridement Subcutaneous Muscle / Fascia -Tissue Removed Subcutaneous Muscle -Post Debridement (cm) - Length 6.5 6.5 -Post Debridement (cm) - Width 6.5 7 -Post Debridement (cm) - Depth 2 1 -Total Square (Post) (cm) 42.25 45.5 -Area of Debridement (cm) - Length 6.5 6.5 -Area of Debridement (cm) - Width 6.5 7 -Total Square (Area) (cm) 42.25 45.5 -Tunneling No No -Undermining/Tunneling No No -Circular Undermining No No -Wound/Ulcer Outcome Not Healed Not Healed -Ulcer Cleansing Rinsed/ Rinsed/ Irrigated with Irrigated with Saline Saline -Foul Odor after Cleansing No No -Bioengineered Tissue No No -Bleeding Controlled with Pressure Pressure -Offloading No No -Treatment Response Procedure Procedure Tolerated Well Tolerated Well -Debridement - Subq, 1st 20sq cm Yes -Debridement - Muscle / Fascia, 1st Yes 20sq cm -Debridement, Muscle/Fascia, ea addt'l 2 20sq cm or part thereof #7 R Ischium -Time 11:38 11:23 -Correct Patient Yes Yes -Correct Side, Site, Position Yes Yes -Correct Procedure Yes Yes -Procedure Performed Yes Yes -Type of Procedure Debridement Debridement -Clinical Debridement Subcutaneous Muscle / Fascia -Tissue Removed Subcutaneous Muscle -Post Debridement (cm) - Length 2.8 0.8 -Post Debridement (cm) - Width 1.4 2.5 -Post Debridement (cm) - Depth 0.2 0.3 -Total Square (Post) (cm) 3.92 2.00 -Area of Debridement (cm) - Length 2.8 0.8 -Area of Debridement (cm) - Width 1.4 2.5 -Total Square (Area) (cm) 3.92 2.00 -Tunneling No No -Undermining/Tunneling No No -Circular Undermining No No -Wound/Ulcer Outcome Not Healed Not Healed -Ulcer Cleansing Rinsed/ Rinsed/ Irrigated with Irrigated with Saline Saline -Foul Odor after Cleansing No No -Bioengineered Tissue No No -Bleeding Controlled with Pressure Silver Nitrate -Offloading No No -Treatment Response Procedure Procedure Tolerated Well Tolerated Well -Debridement - Subq, 1st 20sq cm No -Debridement, SubQ, ea addt'l 20sq cm 2 or part thereof -Debridement - Muscle / Fascia, 1st No 20sq cm Pain Scale: 0-10 Numeric Is Patient Pain Free? Yes - Nurse 3 - General Ulcer D/C NN Start: 07/14/21 11:07 Freq: Status: Active Protocol: Activity Type Activity Date Activity User E-Sign Co-Sign Detail Recorded Client Recorded Date Recorded By Document 07/14/21 11:57 [place] [id number] 07/14/21 11:58 [place] Document 08/04/21 11:47 [facility] [id number] 08/04/21 11:48 [facility] 07/14/21 08/04/21 11:57 11:47 Wound Care Nurse 3 #8 L Ischium -Ulcer Cleansing Rinsed/ Rinsed/ Irrigated with Irrigated with Saline Saline -Foul Odor after Cleansing No No -Negative Pressure Wound Therapy N/A -Primary Dressing Applied Silvercel Silvercel -Other Dressing ABD -Primary Dressing Covered/Secured with Secured with Secured with Tape Tape,Other -Other Covering abd -Silvercel 1 1 #7 R Ischium -Ulcer Cleansing Rinsed/ Rinsed/ Irrigated with Irrigated with Saline Saline -Foul Odor after Cleansing No No -Negative Pressure Wound Therapy N/A -Primary Dressing Applied Silvercel Silvercel -Other Dressing abd -Primary Dressing Covered/Secured with Secured with Secured with Tape Tape,Other -Other Covering abd -Silvercel 0 0 Treatment Response Procedure Tolerated Well Pain Scale: 0-10 Numeric Is Patient Pain Free? Yes WC - Visit Discharge Discharge Condition Stable Stable Ambulatory Status Wheelchair Wheelchair Transportation [facility] Medication Reconcilliation completed & No provided to patient/care provider Clinical Summary of Care Provided Yes Additional Wound Wound debrided: Ischial ulcer Laterality: Right Wound Grade/Stage: Stage IV Type of Debridement: Excisional debridement Anesthesia Used: 4% Lidocaine Solution Depth: Down to and including healthy tissue, in the subcutaneous layer and to muscle Percentage of wound debrided: 100 Instrument Used: 3mm curette Tissue Removed: Subcutaneous tissue and slough, into the muscle Severity: Fat Layer Exposed Amount of bleeding with debridement: Mild Bleeding Controlled with: Pressure Patient tolerated procedure: Patient tolerated procedure well Assessment/Plan Assessment/Plan (1) Pressure sore of left ischium, stage 4: CODE(S): L89.324 - Pressure ulcer of left buttock, stage 4 (2) Right ischial pressure sore, stage 4: CODE(S): L89.314 - Pressure ulcer of right buttock, stage 4 (3) Above-knee amputation of right lower extremity: CODE(S): S78.111A - Complete traumatic amputation at level between right h ip and knee, initial encounter (4) Paraplegia at T4 level: CODE(S): G82.20 - Paraplegia, unspecified (5) Chronic osteomyelitis, pelvis: CODE(S): M86.659 - Other chronic osteomyelitis, unspecified thigh (6) Severe protein-calorie malnutrition: CODE(S): E43 - Unspecified severe protein-calorie malnutrition (7) History of tobacco use: CODE(S): Z87.891 - Personal history of nicotine dependence PLAN: Wound care - Moistened silver alginate covered by ABD, DAILY, to both ulcers. Wound culture obtained on 01/20/21, he was positive for Proteus mirabilis, Cornybacterium minutissimum and Bacteroides fragilis. Due to the resistant organisms and his allergies, he was referred to ID for antibiotic treatment. He was started on Cefdinir, Doxycycline and Flagyl all for 14 days, which he completed. Wound culture from 11/01/20 was positive for MRSA, E. coli, Proteus Mirabilis. He was treated with Augmentin and doxycycline for 6 weeks. He tolerated the antibiotics well. Encourage nutritional supplementation with protein to help the healing process. Encouraged the patient to stop smoking as it may have deleterious effects on wound healing. He states he continues to have a mucous-like drainage from his right ischial ulcer with a strong odor. No drainage visualized today. Most likely this is coming from his rectum. Patient is insistent that it is not. Right ischial ulcer without tunneling that can be found. Discussed with Dr. Urban and his suggesting further evaluation at a tertiary hospital. The patient states he does not have free transportation to go to a larger hospital. His mucous drainage is worse after he eats and drinks or when his stomach is upset. He has an appointment with Dr. [facility] this week for further evaluation if his symptoms. Followup 3 weeks.
== END 2021-08-10 23:59 ==
LOC: WC 11:00
PROVIDERS: PCP Internal Medicine; Visit Provider Nurse Practitioner Family
DX: L89.314 Pressure ulcer of right buttock, stage 4 (principal); L89.324 Pressure ulcer of left buttock, stage 4; M86.69 Other chronic osteomyelitis, multiple sites; G82.20 Paraplegia, unspecified; Z79.899 Other long term (current) drug therapy; Z86.14 Personal history of Methicillin resistant Staphylococcus aureus infection; Z87.891 Personal history of nicotine dependence; Z89.611 Acquired absence of right leg above knee
CPT/HCPCS: 11042; 11043; 11045; 11046

== ENCOUNTER → 2021-08-19 10:23 | Outpatient (CLI) | payer MEDICARE, MEDICAID, SELFPAY ==
--- NOTE | 2021-08-19 10:30 | CT_ITS ---
STUDY: CT ABDOMEN AND PELVIS WITH CONTRAST REASON FOR EXAM: Male, 56 years old. Unintended weight loss RADIATION DOSAGE (If Supplied By Facility): CTDIvol = ( 9.75 ) mGy, DLP = ( 451.69 ) mGycm TECHNIQUE: Transaxial images were obtained from the dome of the diaphragm to the symphysis pubis without oral contrast. IV 50mL Isovue-370 was administered. Sagittal and coronal images were reconstructed. Individualized dose optimization techniques were used for this CT. COMPARISON: Comparison is made with prior study dated 05/27/2020. FINDINGS: The visualized lung bases are unremarkable. The visualized portions of the heart are within normal limits. Normal liver. I suspect cholesterol gallstones within the gallbladder lumen. The gallbladder is not distended. Normal spleen. Normal pancreas. Normal bilateral adrenal glands. Normal right kidney. Normal left kidney. Normal visualized stomach. Normal small intestine. The colostomy is seen in the anterior right lower abdomen. There is non-visualization of the appendix. There is diffuse atherosclerotic calcification of the abdominal aorta, without a demonstrated aneurysm. Normal inferior vena cava. Normal retroperitoneum. Diffuse bladder wall thickening. Soft tissue thickening in the region of the perineum. This is unchanged. Marked degree of lumbar levoscoliosis. Marked degree of bilateral degenerative changes of both hip joints worse in the left side with the erosive changes of the left femoral head with a soft tissue density within the joint space. CT/Abdomen/Pelvis WITH Contrast IMPRESSION: Stable examination. Findings in tip with the spina bifida. Electronically Signed: Jay Leigh MD at 13:38 EST , Service support ,
== END ==
PROVIDERS: PCP Internal Medicine; Visit Provider Internal Medicine Gastroenterology
DX: R63.4 Abnormal weight loss (principal)
CPT/HCPCS: 74177; Q9967

== ENCOUNTER 2021-09-01 11:00 | Outpatient (RCR) | payer MEDICARE, MEDICAID, SELFPAY ==
[2021-08-11 00:04] VITALS: BP 139/77; PULSE 116; RESP 18; TEMP 36.6; BMI 19.8
[2021-09-01 10:47] VITALS: BP 131/72; PULSE 116; RESP 18; TEMP 36.1; BMI 19.8
--- NOTE | 2021-09-01 14:18 | PN.PCM_ITS ---
History of Present Illness Date of Service: 09/01/21 Chief Complaint: Bilateral ischial pressure sores, Stage IV. History of Wound: Surgery 04/08/20 - 1. Excision bleeding right ischial/perineal pressure sore, Stage IV. 2. Control of prostatic bleeding with electrocautery and Surgicel hemostat. Wound Care - Rinse ulcers with Dakin's solution and then cover Silver alginate dressing covered with adaptic and topped with gauze daily. Wound culture from 01/20/21 positive for Proteus mirabilis, Cornybacterium minutissium and Bacteroides fragilis. He was referred to ID for antibiotic management, which he was placed on Cefdinir, Doxycycline and Flagyl for 10 days. Patient has long standing bilateral ischial pressure sores, Stage IV, with the left side extending to the femoral head and the right side extending to the perineal area and the prostate. Surgery would entail quite extensive excision with amputations at a tertiary center. Patient does not want to pursue any heroic surgeries at this time since it is not a guarantee his pressure issues won't recur. With aggressive amputations, his already tenuous balance would be even more disrupted. At the present time, we are providing conservative care on a monthly basis. He states his right leg gets in the way when transferring. He underwent a right AKA on 06/12/20 in [place]. Wound culture was done on 04/22/20. It showed Morganella morganii, Pseudomonas aeroginosa, Streptococcus group F, and Bacteroides fragilis. He has a lot of antibiotic allergies. His only real option is IV antibiotics. Dr. Chester also saw him at the W[facility] Center and felt the wounds were colonized and held off on antibiotics at this time. If his clinical situation were to change, then would re-evaluate him for IV antibiotics at that time. Wound culture from 11/01/20 was positive for MRSA, E. coli, Proteus Mirabilis. He was treated with Augmentin and doxycycline. Today he denies any fever. He states his appetite is ok. Progress of Wound: Bilateral ulcers are stable but both are very dry. He does have clear drainage from the left ischial ulcer with movement, most likely from synovial fluid from his hip joint. Right ischial/perineal ulcer is dry, there is a new separation next to the ulcer. No drainage present at this time. Objective Data Objective Data Vital Signs: Vital Signs Temp Pulse Resp BP 96.9 F L 116 H 18 131/72 H 09/01/21 10:47 09/01/21 10:47 09/01/21 10:47 09/01/21 10:47 Body Mass Index (BMI) 19.8 Charges/Coding Addendum Addendum: Right ischial/perineal ulcer cluster is subcutaneous 26327 Procedures Integumentary 111xxx-113xx: [id number] Manisha musc/fascia 20 sq cm/< (Left ischial ulcer cluster) Add On Codes: 68854 Manisha musc/fascia add-on (x2) Physical Exam Const alert and oriented x3 HEENT normocephalic Resp normal respiratory effort Cardio regular rate GI non-tender Palpation: soft Extremity normal capillary refill Skin Wound Narrative: Bilateral ulcers are stable but both are very dry. He does have clear drainage from the left ischial ulcer with movement, most likely from synovial fluid from his hip joint. Right ischial/perineal ulcer is dry, there i s a new separation next to the ulcer. No drainage present at this time. Neuro CN's II-XII intact bilaterally Psych Appearance: grossly normal Debridement Note Debridement Note Wound debrided: Ischial ulcer cluster Laterality: Left Wound Grade/Stage: Stage IV Type of Debridement: Excisional debridement Anesthesia Used: 4% Lidocaine Solution Depth: Down to and including healthy tissue, in the subcutaneous layer and to muscle Percentage of wound debrided: 100 Instrument Used: 5mm curette Tissue Removed: Subcutaneous tissue and slough into the muscle Severity: Fat Layer Exposed Amount of bleeding with debridement: Mild Bleeding Controlled with: Pressure, Compression and gauze and Silver Nitrate (at the 6 o'clock position on the edge there was one area that kept oozing even after pressure was held, the silver nitrate helped stop the oozing) Patient tolerated procedure: Patient tolerated procedure well Post-Debridement Measurements and Additional Note: Post-Debridement Measurements/Treatment NIKA - Nurse 1 - General Ulcer Assessment Start: 09/01/21 10:47 Freq: Status: Active Protocol: WILLIAMS Activity Type Activity Date Activity User E-Sign Co-Sign Detail Recorded Client Recorded Date Recorded By Document 09/01/21 10:47 DL [id number] 09/01/21 10:56 DL 09/01/21 10:47 - Today's Visit Information Type of service Follow-up Visit (Physician/[employer]TER T[employer] TENDER ) Arrival Mode Wheelchair Transfer Assistance Manual Transfer Assist (Other) x1 Patient Identification Verified (Name & Yes ) Patient Requires Transmission-Based No Precautions Height and Weight Body Mass Index (BMI) 19.8 BMI Classification Normal Vital Signs Temperature (97.8 F-99.1 F) 96.9 F L Temperature Source Temporal Pulse Rate (60-100) 116 H Pulse Location Monitor Respiratory Rate (12-18) 18 Respiratory rate source Observation Blood Pressure (90/60-120/80) 131/72 H Blood Pressure Mean (mm Hg) 91 Source Monitor History Since Last Visit- (Skip if this is Patient's initial visit) Have you changed medications since your No last visit? Any new allergies or adverse reactions No Had a fall/change in ADL's that may No increase risk of falls Signs or symptoms of abuse and/or No neglect since last visit Have you been in the hospital since your No last visit? Has compression in place as prescribed N/A Has offloadiing in place as prescribed Yes Experienced any changes in pain level or No management Pain Scale: 0-10 Numeric Is Patient Pain Free? Yes WC - Nurse 1 - General Ulcer Measurement Start: 09/01/21 10:47 Freq: Status: Active Protocol: Activity Type Activity Date Activity User E-Sign Co-Sign Detail Recorded Client Recorded Date Recorded By Document 09/01/21 10:47 DL [id number] 09/01/21 10:56 DL 09/01/21 10:47 Wound Center Nurse 1 #8 L Ischium -Current Size (cm) - Length 6.2 -Current Size (cm) - Width 5.1 -Current Size (cm) - Depth 0.7 -Total Square Cm 31.62 -Photo Taken No -Exudate Amt Small -Exudate Type Serosanguineous -Wound Margin Thickened & Rolled Under -Granulation Amt Large (67-100%) -Granulation Quality [place] -Necrosis Amt Small (1-33%) -Necrotic Tissue Type Adherent Slough -Structure Exposed N/A -Texture (Steffi-wound Skin Appearance) Scarring -Moisture (Steffi-wound Skin Appearance) Maceration -Color (Steffi-wound Skin Appearance) No Abnormality -Temperature (Steffi-wound Skin No Abnormality Appearance) (Pt Warm) -Ulcer Cleansing Soap and Water -Foul Odor after Cleansing Yes, Due to Product Use -Anesthetic Used 4% Lidocaine Solution,5% Lidocaine Gel #7 R Ischium cluster -Current Size (cm) - Length 1.1 -Current Size (cm) - Width 0.5 -Current Size (cm) - Depth 0.3 -Total Square Cm 0.55 -Photo Taken No -Exudate Amt Small -Exudate Type Serosanguineous -Wound Margin Thickened & Rolled Under -Granulation Amt Large (67-100%) -Granulation Quality [place] -Necrosis Amt None Present (0 %) -Texture (Steffi-wound Skin Appearance) Scarring -Moisture (Steffi-wound Skin Appearance) Maceration -Color (Steffi-wound Skin Appearance) Atrophie Michelle -Temperature (Steffi-wound Skin No Abnormality Appearance) (Pt Warm) -Tenderness on Palpation (Steffi-wound No Skin Appearance) -Ulcer Cleansing Soap and Water -Foul Odor after Cleansing No -Anesthetic Used 4% Lidocaine Solution,5% Lidocaine Gel WC - Nurse 2 - General Ulcer CM Notes Start: 09/01/21 10:47 Freq: Status: Active Protocol: Activity Type Activity Date Activity User E-Sign Co-Sign Detail Recorded Client Recorded Date Recorded By Document 09/01/21 11:25 [id number] 09/01/21 11:33 DEBORAH 09/01/21 11:25 Wound Center Nurse 2 #8 L Ischium -Time 11:25 -Correct Patient Yes -Correct Side, Site, Position Yes -Correct Procedure Yes -Procedure Performed Yes -Type of Procedure Debridement -Clinical Debridement Muscle / Fascia -Tissue Removed Muscle -Post Debridement (cm) - Length 7 -Post Debridement (cm) - Width 7 -Post Debridement (cm) - Depth 0.1 -Total Square (Post) (cm) 49 -Area of Debridement (cm) - Length 7 -Area of Debridement (cm) - Width 7 -Total Square (Area) (cm) 49 -Tunneling No -Undermining/Tunneling No -Circular Undermining No -Wound/Ulcer Outcome Not Healed -Ulcer Cleansing Rinsed/ Irrigated with Saline -Foul Odor after Cleansing No -Bioengineered Tissue No -Bleeding Controlled with Pressure -Offloading No -Treatment Response Procedure Tolerated Well -Debridement - Subq, 1st 20sq cm No -Debridement - Muscle / Fascia, 1st Yes 20sq cm -Debridement, Muscle/Fascia, ea addt'l 2 20sq cm or part thereof #7 R Ischium cluster -Time 11:26 -Correct Patient Yes -Correct Side, Site, Position Yes -Correct Procedure Yes -Procedure Performed Yes -Type of Procedure Debridement -Clinical Debridement Subcutaneous -Tissue Removed Subcutaneous, Muscle -Post Debridement (cm) - Length 6 -Post Debridement (cm) - Width 1 -Post Debridement (cm) - Depth 0.3 -Total Square (Post) (cm) 6 -Area of Debridement (cm) - Length 6 -Area of Debridement (cm) - Width 1 -Total Square (Area) (cm) 6 -Tunneling No -Undermining/Tunneling No -Circular Undermining No -Wound/Ulcer Outcome Not Healed -Ulcer Cleansing Rinsed/ Irrigated with Saline -Foul Odor after Cleansing No -Bioengineered Tissue No -Bleeding Controlled with Pressure -Offloading No -Treatment Response Procedure Tolerated Well -Debridement - Subq, 1st 20sq cm Yes Pain Scale: 0-10 Numeric Is Patient Pain Free? Yes - Nurse 3 - General Ulcer D/C NN Start: 09/01/21 10:47 Freq: Status: Active Protocol: Activity Type Activity Date Activity User E-Sign Co-Sign Detail Recorded Client Recorded Date Recorded By Document 09/01/21 11:37 DL [id number] 09/01/21 11:38 DL 09/01/21 11:37 Wound Care Nurse 3 #8 L Ischium -Ulcer Cleansing Soap and Water -Foul Odor after Cleansing No -Primary Dressing Applied Aquacel AG 4x4 -Primary Dressing Covered/Secured with Dry Gauze, Secured with Tape -Aquacel AG 4x4 1 #7 R Ischium cluster -Ulcer Cleansing Soap and Water -Foul Odor after Cleansing No -Other Dressing aqaucel AG -Primary Dressing Covered/Secured with Dry Gauze, Secured with Tape Treatment Response Procedure Tolerated Well Pain Scale: 0-10 Numeric Is Patient Pain Free? Yes - Visit Discharge Discharge Condition Stable Ambulatory Status Wheelchair Transportation Private Auto Additional Wound Wound debrided: ishical/perineal cluster Laterality: Right Wound Grade/Stage: Stage IV Type of Debridement: Excisional debridement Anesthesia Used: 4% Lidocaine Solution Depth: Down to and including healthy tissue and in the subcutaneous layer Percentage of wound debrided: 100 Instrument Used: 3mm curette Tissue Removed: Subcutaneous tissue and slough Severity: Fat Layer Exposed Amount of bleeding with debridement: Mild Bleeding Controlled with: Pressure and Compression and gauze Patient tolerated procedure: Patient tolerated procedure well Assessment/Plan Assessment/Plan (1) Pressure sore of left ischium, stage 4: CODE(S): L89.324 - Pressure ulcer of left buttock, stage 4 (2) Right ischial pressure sore, stage 4: CODE(S): L89.314 - Pressure ulcer of right buttock, stage 4 (3) Perineal ulcer: CODE(S): L98.499 - Non-pressure chronic ulcer of skin of other sites with unspecified severity QUALIFIERS: Non-pressure ulcer stage: unspecified non-pressure ulcer stage Qualified Code(s): L98.499 - Non-pressure chronic ulcer of skin of other sites with unspecified severity (4) Chronic osteomyelitis, pelvis: CODE(S): M86.659 - Other chronic osteomyelitis, unspecified thigh (5) Paraplegia at T4 level: CODE(S): G82.20 - Paraplegia, unspecified (6) Above-knee amputation of right lower extremity: CODE(S): S78.111A - Complete traumatic amputation at level between right hip and knee, initial encounter (7) History of tobacco use: CODE(S): Z87.891 - Personal history of nicotine dependence PLAN: Wound care - Moistened silver alginate covered with adaptic and topped by ABD, DAILY, to both ulcers. Both ulcers are dry with thickened scar tissue. Wound culture obtained on 01/20/21, he was positive for Proteus mirabilis, Cornybacterium minutissimum and Bacteroides fragilis. Due to the resistant organisms and his allergies, he was referred to ID for antibiotic treatment. He was started on Cefdinir, Doxycycline and Flagyl all for 14 days, which he completed. Wound culture from 11/01/20 was positive for MRSA, E. coli, Proteus Mirabilis. He was treated with Augmentin and doxycycline for 6 weeks. He tolerated the antibiotics well. Encourage nutritional supplementation with protein to help the healing process. Encouraged the patient to stop smoking as it may have deleterious effects on wound healing. He states he continues to have a mucous-like drainage from his right ischial ulcer with a strong odor. No drainage visualized today. Patient has seen Dr. Sanabria GI and states he needs a colonoscopy and an endoscopy. Patient states that he has done his own experiment with his eating and drinking to try and figure out where the drainage from his right ischial ulcer is coming from. He states he has tried eating without drinking anything and he doesn't experience the drainage from the right ischial ulcer, but if he drinks a lot, then he will have that drainage. He states he feels like it has something to do with his prostate. Instructed patient that he needs to follow up with his Urologist concerning this. I continue to suggest further evaluation at a tertiary [facility]. The patient states he does not have free transportation to go to a larger hospital. Encouraged him to do his follow up with Dr. Sanabria. Followup 3 weeks.
== END 2021-09-09 23:59 ==
LOC: WC 11:00
PROVIDERS: PCP Internal Medicine; Visit Provider Nurse Practitioner Family
DX: L89.224 Pressure ulcer of left hip, stage 4 (principal); L89.214 Pressure ulcer of right hip, stage 4; Z86.14 Personal history of Methicillin resistant Staphylococcus aureus infection; G82.20 Paraplegia, unspecified; Z87.891 Personal history of nicotine dependence
CPT/HCPCS: 11042; 11043; 11046

== ENCOUNTER 2021-09-24 07:59 | Day surgery (SDC) | payer MEDICARE, MEDICAID, SELFPAY ==
[2021-09-24] VITALS (8 sets, daily range): BP systolic 83–141; BP diastolic 47–85; PULSE 60–76; RESP 16–18; TEMP 35.9–36.1; O2SAT 97–100; BMI 14.3
[2021-09-24] MEDS: Lactated Ringers 1,000 ML 15 ML IV (08:42)
--- NOTE | 2021-09-24 09:00 | COLBX_PTH ---
PATIENT: RICCARDO NERI LOC: EN U#:[id number] AGE/SX: 56/M ROOM: RE09/24/[address]: Dr. Luis Enrique Sanabria DO : 1965 BED: DIS: 09/24/2021 SPEC #: [id number] RECD: 09/24/21 14:23 STATUS: EMY JOAQUIN #: [id number] GERMAIN: 09/24/21 09:[address]: Luis Enrique Sanabria DEPT: SURGICAL PATHOLOGY RECD BY: Erick Collazo ENTERED: 09/25/21 08:53 SP TYPE: COLON BX OTHR DR: Dr. Rayo Jose MD Tissues: A - Duodenum, NOS B - Gastric mucous membrane C - Esophagus, NOS D - COLON BIOPSY E - COLON BIOPSY F - Rectum, NOS Procedures: Special Stain Group II Surgery Specimen Level IV Alcian Blue/PAS (control) HEADER OPERATION: [place] [place] DIAGNOSIS: Rectal abnormality, weight loss TISSUE SUBMITTED: A ? Duodenum biopsy, B ? Gastric body biopsy, C ? Esophagus biopsy, D ? Hepatic flexure ulcer biopsy, E ? Random colonic biopsy, F ? Rectal biopsy MICROSCOPIC DIAGNOSIS A. Duodenum, biopsy: No pathologic change. B. Gastric body, biopsy: Chronic gastritis. C. Esophagus, biopsy: Fragments of gastric mucosa with mild chronic inflammation. No evidence of goblet cell metaplasia. See comment. D. Colonic ulcer at hepatic flexure, biopsy: Fragments of benign colonic tissue. Fibrinopurulent material suggestive of ulcer. E. Colon, random biopsy: No pathologic change. F. Rectum, biopsy: Ulceration with fibrinopurulent material and hyperplastic epithelial changes. See comment. AM:cathi 09/26/2021 COMMENT C. Alcian blue/PAS stain with matched control supports the above diagnosis. F. The findings may be suggestive of solitary rectal ulcer syndrome. Clinical correlation is suggested. MICROSCOPIC DESCRIPTION Slides are reviewed. GROSS DESCRIPTION A - Received in fixative is one container labeled with the patient's name and designated duodenum biopsy. The specimen consists of multiple irregular fragments of light infante soft tissue that in aggregate measure 1.5 x 0.5 x 0.1 cm. The specimen is totally submitted in one cassette. B - Received in fixative is one container labeled with the patient's name and designated gastric body biopsy. The specimen consists of multiple irregular fragments of light infante soft tissue that in aggregate measure 1 x 0.5 x 0.1 cm. The specimen is totally submitted in one cassette. C - Received in fixative is one container labeled with the patient's name and designated esophagus biopsy. The specimen consists of multiple irregular fragments of light infante soft tissue that in aggregate measure 0.8 x 0.5 x 0.1 cm. The specimen is totally submitted in one cassette. D - Received in fixative is one container labeled with the patient's name and designated hepatic flexure ulcer biopsy. The specimen consists of multiple irregular fragments of light infante soft tissue that in aggregate measure 1 x 0.2 x 0.1 cm. The specimen is totally submitted in one cassette. E - Received in fixative is one container labeled with the patient's name and designated random colon biopsy. The specimen consists of multiple irregular fragments of light infante soft tissue that in aggregate measure 1.5 x 0.6 x 0.1 cm. The specimen is totally submitted in one cassette. F - Received in fixative is one container labeled with the patient's name and designated rectal biopsy. The specimen consists of multiple irregular fragments of light infante soft tissue that in aggregate measure 0.8 x 0.8 x 0.1 cm. The specimen is totally submitted in one cassette. / AM:cathi 09/25/21 TC:2 CPT: 39848 x6, 29401
--- NOTE | 2021-09-24 09:16 | HP.PCM_ITS ---
History and Physical Date of Admission: 09/24/21 56 M who presents to the office today for Has been having increased drainage from his right wound following an upset stomach. Will feel the need to have a BM will get hot and sweaty. Requires digital stimulation to promote BM, he will attempt stimulation and there is no BM but sometimes the liquid will come out. It is a milky green/yellow color that is quite odoriferous. Also has difficulty with sweats at night and when he wakes he finds the liquid in his bed. He has lost 30-35 pounds since his amputation two years ago. [place] seeing wound center where he expressed concern about drainage from his ischial ulcers. His mucous drainage is worse after he eats and drinks or when his stomach is upset. He has an extensive wound history. Has been seeing the wound clinic since 04/08/21 for bilateral ischial and perineal pressure wounds stage IV with the left side extending to the femoral head and the right side extending to the perineal area and the prostate. 01/20/21 his wounds were positive for Proteus mirabilis, Cornybacterium minutissium and Bacteroides fragilis. 04/22/20 it showed Morganella morganii, Pseudomonas aeroginosa, Streptococcus group F, and Bacteroides fragilis. 11/01/20 was positive for MRSA, E. coli, Proteus Mirabilis. AKA LLE a result of an accident in 1990. AKA RLE performed two years ago. ROS Const Constitutional: Positive for fatigue and weight change ENT ENT: Positive for nasal congestion Resp Respiratory: Positive for shortness of breath Gastro GI: Positive for abdominal pain, change in bowel habits, constipation, diarrhea, heartburn and nausea/dyspepsia Musc Musculoskeletal: Positive for joint pain, back pain, muscle cramps, muscle weakness, numbness and tingling Neuro Neurology: Positive for numbness, tingling and paralysis Psych Psychiatric: Positive for anxiety and Positive for depression Endo Endocrine: Positive for fatigue and weight change Exam Const General: cooperative and comfortable Nutritional Appearance: average body habitus and well nourished [facility] Head: normal to inspection Ears: hearing grossly normal bilaterally Nose: external nose normal Face and sinus: normal facial exam Mouth: oral mucosae normal Throat: posterior oropharynx normal Eyes General: appearance normal, both eyes and all related structures Neck Neck: normal visual inspection Chest Chest palpation & inspection: normal inspection of the chest and normal palpation of entire chest wall Resp Effort & Inspection: normal respiratory effort Auscultation: Bilateral: Clear to Auscultation Cardio Palpation: normal PMI Rate: regular rate Rhythm: regular rhythm GI Inspection: normal to inspection Auscultation: normal bowel sounds Percussion: normal to percussion Palpation: no hepatosplenomegaly Skin General: no rashes or lesions noted Neuro General: patient alert Extrem General: normal to inspection Psych Affect: normal affect Quality Reporting Tobacco Screening ([facility]) Smoking Status: Former smoker Assessment and Plan Assessment and Plan (1) Rectal abnormality: Status: Acute Plan - Dr. Luis Enrique Sanabria, DO: . Abdomen pelvis with p.o. contrast and possibly white blood cell (2) Weight loss: Status: Acute Orders: Orders: Abdomen/Pelvis WITH Contrast Today Plan - Dr. Luis Enrique Sanabria, DO: Patient has never had a colonoscopy which concerns me. He will need to undergo colonoscopy for possible pill prep. Ultimately able to see if there is anything in his GI tract that would cause a week. We will also need upper endoscopy so we can evaluate his upper GI tract into the small bowel for the extensive biopsies and culture from the small bowel. Typically we will 1-2 a MRI of the pelvis to define the radiographic area and look for fistula formation but he cannot have it secondary to spine. We will also need to check an ESR, CRP and cultures. Plan Details Other Medications: New: sod phos mono-sod phos dibasic 1.5 gram (OsmoPrep) administer with 240 mL of clear fluid 4 tabs PO Q15M 2 days 60 tabs 0RF I have re-examined the patient. There are no clinical changes since date of exam.
--- NOTE | 2021-09-24 09:59 | OP.EGD_ITS ---
Patient Name: Pernell Heath Procedure Date: 09/24/2021 9:09 AM Date of : 1965 Age: 56 Procedure: Upper GI endoscopy Indications: Dyspepsia, Failure to respond to medical treatment Providers: Luis Enrique Sanabria DO Medicines: See the Anesthesia note for documentation of the administered medications Patient Profile: This is a 56 year old male. Refer to note in patient chart for documentation of history and physical. Patient has symptoms of chronic dyspepsia, chronic nausea and chronic vomiting. Complications: No immediate complications. Procedure: Pre-Anesthesia Assessment: - Prior to the procedure, a History and Physical was performed, and patient medications and allergies were reviewed. The patient is competent. The risks and benefits of the procedure and the sedation options and risks were discussed with the patient. All questions were answered and informed consent was obtained. Patient identification and proposed procedure were verified by the physician in the pre-procedure area. Mental Status Examination: alert and oriented. Airway Examination: normal oropharyngeal airway and neck mobility. Respiratory Examination: clear to auscultation. CV Examination: normal. Prophylactic Antibiotics: The patient does not require prophylactic antibiotics. Prior Anticoagulants: The patient has taken no previous anticoagulant or antiplatelet agents. ASA Grade Assessment: II - A patient with mild systemic disease. After reviewing the risks and benefits, the patient was deemed in satisfactory condition to undergo the procedure. The anesthesia plan was to use moderate sedation / analgesia (conscious sedation). Immediately prior to administration of medications, the patient was re-assessed for adequacy to receive sedatives. The heart rate, respiratory rate, oxygen saturations, blood pressure, adequacy of pulmonary ventilation, and response to care were monitored throughout the procedure. The physical status of the patient was re-assessed after the procedure. After obtaining informed consent, the endoscope was passed under direct vision. Throughout the procedure, the patient's blood pressure, pulse, and oxygen saturations were monitored continuously. The Colonoscope was introduced through the mouth, and advanced to the second part of duodenum. The upper GI endoscopy was accomplished without difficulty. The patient tolerated the procedure well. Moderate Sedation: Moderate (conscious) sedation was administered by the endoscopy nurse and supervised by the endoscopist. The following parameters were monitored: oxygen saturation, heart rate, blood pressure, and response to care. Total physician intraservice time was 15 minutes. Scope In: 9:20:56 AM Scope Out: 9:28:12 AM Total Procedure Duration Time 0 hours 7 minutes 16 seconds Findings: LA Grade A (one or more mucosal breaks less than 5 mm, not extending between tops of 2 mucosal folds) esophagitis with no bleeding was found 34 to 35 cm from the incisors. Biopsies were taken with a cold forceps for histology. Verification of patient identification for the specimen was done. Estimated blood loss was minimal. Localized mild inflammation characterized by erythema was found in the gastric body. Biopsies were taken with a cold forceps for histology. Verification of patient identification for the specimen was done. Estimated blood loss was minimal. Diffuse moderately erythematous mucosa without active bleeding and with no stigmata of bleeding was found in the first portion of the duodenum, in the second portion of the duodenum and in the third portion of the duodenum. Biopsies were taken with a cold forceps for histology. Impression: - LA Grade A reflux esophagitis. Biopsied. - Gastritis. Biopsied. - Erythematous duodenopathy. Biopsied. Recommendation: - Await pathology results. - Repeat upper endoscopy in 1 year for surveillance based on pathology results. - Return to GI clinic in 2 weeks. - Continue present medications. Procedure Code(s): --- Professional --- 97454, Esophagogastroduodenoscopy, flexible, transoral; with biopsy, single or multiple G0500, Moderate sedation services provided by the same physician or other qualified health wound care center consultant performing a gastrointestinal endoscopic service that sedation supports, requiring the presence of an independent trained observer to assist in the monitoring of the patient's level of consciousness and physiological status; initial 15 minutes of intra-service time; patient age 5 years or older (additional time may be reported with 06800, as appropriate) CPT copyright 2017 [employer]. All rights reserved. The codes documented in this report are preliminary and upon protective clothing issuer review may be revised to meet current compliance requirements. Luis Enrique Sanabria DO 09/24/2021 9:59:38 AM This report has been signed electronically. Number of Addenda: 1 Note Initiated On: 09/24/2021 9:09 AM Addendum Number: 1 Addendum Date: 06/17/2022 7:16:40 AM MAC was used instead of moderate sedation for the patient. Luis Enrique Sanabria DO 06/17/2022 7:16:44 AM This report has been signed electronically.
--- NOTE | 2021-09-24 10:00 | OP.CCLET_ITS ---
06/17/2022 Rayo Jose MD [address] [place] [address] [place] [address] Re : Upper GI endoscopy procedure for Pernell Heath Dear Dr. Jose This procedure was performed on Friday, September 24, 2021. My impressions and recommendations are as follows: Impressions : - LA Grade A reflux esophagitis. Biopsied. - Gastritis. Biopsied. - Erythematous duodenopathy. Biopsied. Recommendations : - Await pathology results. - Repeat upper endoscopy in 1 year for surveillance based on pathology results. - Return to GI clinic in 2 weeks. - Continue present medications. My findings are described in the full procedure note, which is enclosed. If I can be of further assistance, please feel free to contact me at . Sincerely, Luis Enrique Friend, 09/24/2021 9:59:38 AM This report has been signed electronically.
--- NOTE | 2021-09-24 10:06 | OP.COLON_ITS ---
Patient Name: Pernell Heath Procedure Date: 09/24/2021 9:28 AM Date of : 1965 Age: 56 Procedure: Colonoscopy Indications: Chronic diarrhea Providers: Luis Enrique Sanabria DO Medicines: General Anesthesia Patient Profile: This is a 56 year old male. Refer to note in patient chart for documentation of history and physical. Patient has symptoms of chronic dyspepsia, chronic nausea and chronic vomiting. Last Colonoscopy: date unknown. Complications: No immediate complications. Procedure: Pre-Anesthesia Assessment: - Prior to the procedure, a History and Physical was performed, and patient medications and allergies were reviewed. The patient is competent. The risks and benefits of the procedure and the sedation options and risks were discussed with the patient. All questions were answered and informed consent was obtained. Patient identification and proposed procedure were verified by the physician in the pre-procedure area. Mental Status Examination: alert and oriented. Airway Examination: normal oropharyngeal airway and neck mobility. Respiratory Examination: clear to auscultation. CV Examination: normal. Prophylactic Antibiotics: The patient does not require prophylactic antibiotics. Prior Anticoagulants: The patient has taken no previous anticoagulant or antiplatelet agents. ASA Grade Assessment: II - A patient with mild systemic disease. After reviewing the risks and benefits, the patient was deemed in satisfactory condition to undergo the procedure. The anesthesia plan was to use moderate sedation / analgesia (conscious sedation). Immediately prior to administration of medications, the patient was re-assessed for adequacy to receive sedatives. The heart rate, respiratory rate, oxygen saturations, blood pressure, adequacy of pulmonary ventilation, and response to care were monitored throughout the procedure. The physical status of the patient was re-assessed after the procedure. After I obtained informed consent, the scope was passed under direct vision. Throughout the procedure, the patient's blood pressure, pulse, and oxygen saturations were monitored continuously. The Colonoscope was introduced through the anus and advanced to the terminal ileum. The colonoscopy was performed without difficulty. The patient tolerated the procedure well. The quality of the bowel preparation was good. Moderate Sedation: Moderate (conscious) sedation was administered by the endoscopy nurse and supervised by the endoscopist. The patient's oxygen saturation, heart rate, blood pressure and response to care were monitored. Total physician intraservice time was 15 minutes. Scope In: 9:31:05 AM Scope Withdrawal Time 0 hours 11 minutes 47 seconds Scope Out: 9:53:18 AM Total Procedure Duration Time 0 hours 22 minutes 13 seconds Findings: The perianal and digital rectal examinations were normal. Discontinuous areas of nonbleeding ulcerated mucosa with no stigmata of recent bleeding were present in the rectum, at the hepatic flexure and in the ascending colon. Biopsies were taken with a cold forceps for histology. Verification of patient identification for the specimen was done. Estimated blood loss was minimal. An area of mildly congested mucosa was found in the rectum. Biopsies were taken with a cold forceps for histology. Verification of patient identification for the specimen was done. Estimated blood loss was minimal. A segmental area of the distal ileum was congested. Impression: - Mucosal ulceration. Biopsied. - Congested mucosa in the rectum. Biopsied. - Congested mucosa in the distal ileum. Recommendation: - Discharge patient to home. - Resume previous diet. - Continue present medications. - Await pathology results. - Repeat colonoscopy in 5 years for surveillance based on pathology results. - Return to GI office in 2 weeks. Procedure Code(s): --- Professional --- 23867, Colonoscopy, flexible; with biopsy, single or multiple G0500, Moderate sedation services provided by the same physician or other qualified health healthcare account manager performing a gastrointestinal endoscopic service that sedation supports, requiring the presence of an independent trained observer to assist in the monitoring of the patient's level of consciousness and physiological status; initial 15 minutes of intra-service time; patient age 5 years or older (additional time may be reported with 61777, as appropriate) CPT copyright 2017 [employer]. All rights reserved. The codes documented in this report are preliminary and upon benefits officer review may be revised to meet current compliance requirements. Luis Enrique Sanabria DO 09/24/2021 10:06:09 AM This report has been signed electronically. Number of Addenda: 1 Note Initiated On: 09/24/2021 9:28 AM Addendum Number: 1 Addendum Date: 06/17/2022 7:16:54 AM MAC was used instead of moderate sedation for the patient. Luis Enrique Sanabria DO 06/17/2022 7:16:59 AM This report has been signed electronically.
--- NOTE | 2021-09-24 10:07 | OP.CCLET_ITS ---
06/17/2022 Rayo Jose MD [address] [address] [place] [address] Re : Colonoscopy procedure for Pernell Bakerles Dear Dr. Jose This procedure was performed on Friday, September 24, 2021. My impressions and recommendations are as follows: Impressions : - Mucosal ulceration. Biopsied. - Congested mucosa in the rectum. Biopsied. - Congested mucosa in the distal ileum. Recommendations : - Discharge patient to home. - Resume previous diet. - Continue present medications. - Await pathology results. - Repeat colonoscopy in 5 years for surveillance based on pathology results. - Return to GI office in 2 weeks. My findings are described in the full procedure note, which is enclosed. If I can be of further assistance, please feel free to contact me at . Sincerely, Luis Enrique Sanabria, 09/24/2021 10:06:09 AM This report has been signed electronically.
--- NOTE | 2021-09-24 10:43 | SUR.PHASEI ---
DEVELOPED A FREQUENT SHALLOW MOIST SOUNDING COUGH. LUNGS AUSCULTATED CLEAR POSTERIORLY IN ALL LOBES.
== END 2021-09-24 11:17 ==
LOC: EN 08:02 → AC 08:03
PROVIDERS: PCP Internal Medicine; Referring Provider Internal Medicine; Visit Provider Internal Medicine Gastroenterology
PROC: 0DJD8ZZ Inspection of Lower Intestinal Tract, Via Natural or Artificial Opening Endoscopic (ICD-10-PCS; CPT 45378; principal; 2021-09-24 08:55)
DX: K29.50 Unspecified chronic gastritis without bleeding (principal); K62.6 Ulcer of anus and rectum; K52.9 Noninfective gastroenteritis and colitis, unspecified; K21.00 Gastro-esophageal reflux disease with esophagitis, without bleeding; K31.89 Other diseases of stomach and duodenum; L89.214 Pressure ulcer of right hip, stage 4; L89.224 Pressure ulcer of left hip, stage 4; F41.9 Anxiety disorder, unspecified; Z87.440 Personal history of urinary (tract) infections; Z86.718 Personal history of other venous thrombosis and embolism; Z86.14 Personal history of Methicillin resistant Staphylococcus aureus infection; Z87.891 Personal history of nicotine dependence; Z89.512 Acquired absence of left leg below knee
CPT/HCPCS: 43239; 45380; 88305; 88313; J7120; J2405

== ENCOUNTER 2021-09-29 11:00 | Outpatient (RCR) | payer MEDICARE, MEDICAID, SELFPAY ==
[2021-09-10 00:12] VITALS: BP 131/72; PULSE 116; RESP 18; TEMP 36.1; BMI 19.8
[2021-09-29 11:04] VITALS: BP 99/68; PULSE 77; TEMP 36.2; BMI 19.8
--- NOTE | 2021-09-29 12:32 | PCM.WC.PN ---
History of Present Illness Date of Service: 09/29/21 Chief Complaint: Bilateral ischial pressure sores, Stage IV. History of Wound: Surgery 04/08/20 - 1. Excision bleeding right ischial/perineal pressure sore, Stage IV. 2. Control of prostatic bleeding with electrocautery and Surgicel hemostat. Wound Care - Rinse ulcers with Dakin's solution and then cover Silver alginate dressing covered with adaptic and topped with gauze daily. Wound culture from 01/20/21 positive for Proteus mirabilis, Cornybacterium minutissium and Bacteroides fragilis. He was referred to ID for antibiotic management, which he was placed on Cefdinir, Doxycycline and Flagyl for 10 days. Patient has long standing bilateral ischial pressure sores, Stage IV, with the left side extending to the femoral head and the right side extending to the perineal area and the prostate. Surgery would entail quite extensive excision with amputations at a tertiary center. Patient does not want to pursue any heroic surgeries at this time since it is not a guarantee his pressure issues won't recur. With aggressive amputations, his already tenuous balance would be even more disrupted. At the present time, we are providing conservative care on a monthly basis. He states his right leg gets in the way when transferring. He underwent a right AKA on 06/12/20 in [place]. Wound culture was done on 04/22/20. It showed Morganella morganii, Pseudomonas aeroginosa, Streptococcus group F, and Bacteroides fragilis. He has a lot of antibiotic allergies. His only real option is IV antibiotics. Dr. Chester also saw him at the [facility] and felt the wounds were colonized and held off on antibiotics at this time. If his clinical situation were to change, then would re-evaluate him for IV antibiotics at that time. Wound culture from 11/01/20 was positive for MRSA, E. coli, Proteus Mirabilis. He was treated with Augmentin and doxycycline. Today he denies any fever. He states his appetite is ok. Progress of Wound: Right and left ischial ulcers are stable. Objective Data Objective Data Vital Signs: Vital Signs Temp Pulse Resp BP 97.1 F L 77 18 99/68 09/29/21 11:04 09/29/21 11:04 09/10/21 00:12 09/29/21 11:04 Body Mass Index (BMI) 19.8 Charges/Coding Addendum Addendum: 25618 - right ischial ulcer- subcutaneous Procedures Integumentary 111xxx-113xx: 81981 Manisha musc/fascia 20 sq cm/< (left ischial ulcer) Add On Codes: 38791 Manisha musc/fascia add-on (x2) Physical Exam Const alert, oriented x3 and no apparent distress HEENT normocephalic Resp normal respiratory effort Cardio regular rate GI Palpation: soft Extremity General Extremity: Negative for edema Skin Wound Narrative: Left ischial ulcer into the muscle, when he moves a certain way, it leaks clear, non odorous fluid that is most likely synovial fluid from his hip. Right ischial ulcer is stable, into the subcutaneous tissue. There is a lot of scar tissue present on bilateral ischial ulcers Neuro CN's II-XII intact bilaterally Psych Appearance: grossly normal Debridement Note Debridement Note Wound debrided: ischial ulcer Laterality: Right Wound Grade/Stage: Stage IV Type of Debridement: Excisional debridement Anesthesia Used: 4% Lidocaine Solution Depth: Down to and including healthy tissue and in the subcutaneous layer Percentage of wound debrided: 100 Instrument Used: 3mm curette Tissue Removed: Subcutaneous tissue and slough, scar tissue surrounding the ulcer Severity: Fat Layer Exposed Amount of bleeding with debridement: Mild Bleeding Controlled with: Pressure and Compression and gauze Patient tolerated procedure: Patient tolerated procedure well Post-Debridement Measurements and Additional Note: Post-Debridement Measurements/Treatment WC - Nurse 1 - General Ulcer Assessment Start: 09/29/21 11:04 Freq: Status: Active Protocol: WILLIAMS Activity Type Activity Date Activity User E-Sign Co-Sign Detail Recorded Client Recorded Date Recorded By Document 09/29/21 11:04 VA [id number] 09/29/21 11:08 SALOME 09/29/21 11:04 - Today's Visit Information Type of service Follow-up Visit (Physician/[employer] ) Patient Identification Verified (Name & Yes ) Patient Requires Transmission-Based No Precautions Safety Precautions NA Height and Weight Body Mass Index (BMI) 19.8 BMI Classification Normal Vital Signs Temperature (97.8 F-99.1 F) 97.1 F L Temperature Source Temporal Pulse Rate (60-100) 77 Pulse Location Apical Blood Pressure (90/60-120/80) 99/68 Blood Pressure Mean (mm Hg) 78 Source Monitor History Since Last Visit- (Skip if this is Patient's initial visit) Have you changed medications since your No last visit? Any new allergies or adverse reactions No Had a fall/change in ADL's that may No increase risk of falls Signs or symptoms of abuse and/or No neglect since last visit Have you been in the hospital since your No last visit? Has dressing in place as prescribed Yes Has compression in place as prescribed N/A Has offloadiing in place as prescribed Yes Experienced any changes in pain level or No management WC - Nurse 1 - General Ulcer Measurement Start: 09/29/21 11:04 Freq: Status: Active Protocol: Activity Type Activity Date Activity User E-Sign Co-Sign Detail Recorded Client Recorded Date Recorded By Document 09/29/21 11:04 SALOME [id number] 09/29/21 11:08 SALOME 09/29/21 11:04 Wound Center Nurse 1 #8 L Ischium -Combined with other wound No -Current Size (cm) - Length 6.9 -Current Size (cm) - Width 7.5 -Current Size (cm) - Depth 0.5 -Total Square Cm 51.75 -Photo Taken No -Epithelialization None Present -Tunneling No -Undermining/Tunneling No -Circular Undermining No -Change in Wound Grade/Stage No -Exudate Amt Large -Exudate Type Serosanguineous -Wound Margin Thickened & Rolled Under -Slough/Fibrin Yes -Necrosis Amt Small (1-33%) -Necrotic Tissue Type Adherent Slough -Structure Exposed N/A -Texture (Steffi-wound Skin Appearance) Scarring -Moisture (Steffi-wound Skin Appearance) Assessed, Maceration -Color (Steffi-wound Skin Appearance) No Abnormality, Assessed -Temperature (Steffi-wound Skin No Abnormality Appearance) (Pt Warm) -Tenderness on Palpation (Steffi-wound No Skin Appearance) -Ulcer Cleansing Rinsed/ Irrigated with Saline -Foul Odor after Cleansing No #7 R Ischium cluster -Combined with other wound No -Current Size (cm) - Length 2.5 -Current Size (cm) - Width 0.3 -Current Size (cm) - Depth 0 -Total Square Cm 0.75 -Photo Taken No -Epithelialization Small 1-33% -Tunneling No -Undermining/Tunneling No -Circular Undermining No -Change in Wound Grade/Stage No -Exudate Amt Large -Exudate Type Serosanguineous -Wound Margin Distinct, Outline Attached -Granulation Amt Small (1-33%) -Slough/Fibrin Yes -Necrosis Amt Small (1-33%) -Necrotic Tissue Type Adherent Slough -Structure Exposed N/A -Texture (Steffi-wound Skin Appearance) Assessed, Scarring -Moisture (Steffi-wound Skin Appearance) Assessed, Maceration -Color (Steffi-wound Skin Appearance) Assessed -Temperature (Steffi-wound Skin No Abnormality Appearance) (Pt Warm) -Tenderness on Palpation (Steffi-wound No Skin Appearance) -Ulcer Cleansing Rinsed/ Irrigated with Saline -Foul Odor after Cleansing No WC - Nurse 2 - General Ulcer CM Notes Start: 09/29/21 11:04 Freq: Status: Active Protocol: Activity Type Activity Date Activity User E-Sign Co-Sign Detail Recorded Client Recorded Date Recorded By Document 09/29/21 12:17 DEBORAH [id number] 09/29/21 12:25 DEBORAH 09/29/21 12:17 Wound Center Nurse 2 #8 L Ischium -Time 12:17 -Correct Patient Yes -Correct Side, Site, Position Yes -Correct Procedure Yes -Procedure Performed Yes -Type of Procedure Debridement -Clinical Debridement Muscle / Fascia -Tissue Removed Muscle -Post Debridement (cm) - Length 7.5 -Post Debridement (cm) - Width 6.5 -Post Debridement (cm) - Depth 0.5 -Total Square (Post) (cm) 48.75 -Area of Debridement (cm) - Length 7.5 -Area of Debridement (cm) - Width 6.5 -Total Square (Area) (cm) 48.75 -Tunneling No -Undermining/Tunneling No -Circular Undermining No -Wound/Ulcer Outcome Not Healed -Ulcer Cleansing Rinsed/ Irrigated with Saline -Foul Odor after Cleansing No -Bioengineered Tissue No -Bleeding Controlled with Pressure -Offloading No -Treatment Response Procedure Tolerated Well -Debridement - Subq, 1st 20sq cm No -Debridement - Muscle / Fascia, 1st Yes 20sq cm -Debridement, Muscle/Fascia, ea addt'l 2 20sq cm or part thereof #7 R Ischium cluster -Time 12:19 -Correct Patient Yes -Correct Side, Site, Position Yes -Correct Procedure Yes -Procedure Performed Yes -Type of Procedure Debridement -Clinical Debridement Subcutaneous -Tissue Removed Subcutaneous -Post Debridement (cm) - Length 2.5 -Post Debridement (cm) - Width 1 -Post Debridement (cm) - Depth 0.6 -Total Square (Post) (cm) 2.5 -Area of Debridement (cm) - Length 2.5 -Area of Debridement (cm) - Width 1 -Total Square (Area) (cm) 2.5 -Tunneling No -Undermining/Tunneling No -Circular Undermining No -Wound/Ulcer Outcome Not Healed -Ulcer Cleansing Rinsed/ Irrigated with Saline -Foul Odor after Cleansing No -Bioengineered Tissue No -Bleeding Controlled with Pressure -Offloading No -Treatment Response Procedure Tolerated Well -Debridement - Subq, 1st 20sq cm Yes Pain Scale: 0-10 Numeric Is Patient Pain Free? Yes - Nurse 3 - General Ulcer D/C NN Start: 09/29/21 11:04 Freq: Status: Active Protocol: Activity Type Activity Date Activity User E-Sign Co-Sign Detail Recorded Client Recorded Date Recorded By Document 09/29/21 12:25 [id number] 09/29/21 12:25 09/29/21 12:25 Wound Care Nurse 3 #8 L Ischium -Ulcer Cleansing Rinsed/ Irrigated with Saline -Foul Odor after Cleansing No -Primary Dressing Applied Aquacel AG 4x4 -Primary Dressing Covered/Secured with Dry Gauze, Secured with Tape -Aquacel AG 4x4 1 #7 R Ischium cluster -Ulcer Cleansing Rinsed/ Irrigated with Saline -Foul Odor after Cleansing No -Primary Dressing Applied Aquacel AG 4x4 -Primary Dressing Covered/Secured with Dry Gauze, Secured with Tape -Aquacel AG 4x4 0 Pain Scale: 0-10 Numeric Is Patient Pain Free? Yes WC - Visit Discharge Discharge Condition Stable Ambulatory Status Wheelchair Transportation Private Auto Medication Reconcilliation completed & Yes provided to patient/care provider Additional Wound Wound debrided: ischial ulcer Laterality: Left Wound Grade/Stage: Stage IV Type of Debridement: Excisional debridement Anesthesia Used: 4% Lidocaine Solution Depth: Down to and including healthy tissue, in the subcutaneous layer and to muscle Percentage of wound debrided: 100 Instrument Used: 5mm curette Tissue Removed: Subcutaneous tissue and slough, into the muscle. Severity: Fat Layer Exposed Amount of bleeding with debridement: Mild Bleeding Controlled with: Pressure, Compression and gauze and Silver Nitrate (to the edge of the ulcer at 9 o'clock) Patient tolerated procedure: Patient tolerated procedure well Assessment/Plan Assessment/Plan (1) Pressure sore of left ischium, stage 4: CODE(S): L89.324 - Pressure ulcer of left buttock, stage 4 (2) Right ischial pressure sore, stage 4: CODE(S): L89.314 - Pressure ulcer of right buttock, stage 4 (3) Paraplegia at T4 level: CODE(S): G82.20 - Paraplegia, unspecified (4) Above-knee amputation of right lower extremity: CODE(S): S78.111A - Complete traumatic amputation at level between right hip and knee, initial encounter (5) History of tobacco use: CODE(S): Z87.891 - Personal history of nicotine dependence (6) Chronic osteomyelitis, pelvis: CODE(S): M86.659 - Other chronic osteomyelitis, unspecified thigh (7) Severe protein-calorie malnutrition: CODE(S): E43 - Unspecified severe protein-calorie malnutrition PLAN: Wound care - Moistened silver alginate covered with adaptic and topped by ABD, DAILY, to both ulcers. Both ulcers are dry with thickened scar tissue. Wound culture obtained on 01/20/21, he was positive for Proteus mirabilis, Cornybacterium minutissimum and Bacteroides fragilis. Due to the resistant organisms and his allergies, he was referred to ID for antibiotic treatment. He was started on Cefdinir, Doxycycline and Flagyl all for 14 days, which he completed. Wound culture from 11/01/20 was positive for MRSA, E. coli, Proteus Mirabilis. He was treated with Augmentin and doxycycline for 6 weeks. He tolerated the antibiotics well. Encourage nutritional supplementation with protein to help the healing process. Encouraged the patient to stop smoking as it may have deleterious effects on wound healing. He states he continues to have a mucous-like drainage from his right ischial ulcer with a strong odor. No drainage visualized today. Patient has seen SHAHBAZ Moon and states he needs a colonoscopy and an endoscopy. Patient states that he has done his own experiment with his eating and drinking to try and figure out where the drainage from his right ischial ulcer is coming from. He states he has tried eating without drinking anything and he doesn't experience the drainage from the right ischial ulcer, but if he drinks a lot, then he will have that drainage. He states he feels like it has something to do with his prostate. Instructed patient that he needs to follow up with his Urologist concerning this. I continue to suggest further evaluation at a tertiary hospital. The patient states he does not have free transportation to go to a larger hospital. Encouraged him to do his follow up with Dr. Sanabria. Encouraged patient to stop smoking as it may have deleterious effects on wound healing. Encouraged patient to increase his protein intake to help with wound healing. His paraplegia and chronic osteomyelitis contributes to his non healing stage bilateral ischial pressure ulcer. Especially if he is spending long period in his wheelchair. Followup 3 weeks.
== END 2021-10-10 23:59 ==
LOC: WC 11:00
PROVIDERS: PCP Internal Medicine; Visit Provider Nurse Practitioner Family
DX: L89.224 Pressure ulcer of left hip, stage 4 (principal); L89.214 Pressure ulcer of right hip, stage 4; Z86.14 Personal history of Methicillin resistant Staphylococcus aureus infection; G82.20 Paraplegia, unspecified; Z89.611 Acquired absence of right leg above knee; Z87.891 Personal history of nicotine dependence; M86.659 Other chronic osteomyelitis, unspecified thigh
CPT/HCPCS: 11042; 11043; 11046

== ENCOUNTER 2021-11-10 11:56 | Outpatient (RCR) | payer MEDICARE, MEDICAID, SELFPAY ==
[2021-10-11 00:13] VITALS: BP 99/68; PULSE 77; RESP 18; TEMP 36.2; BMI 19.8
[2021-11-10 11:57] VITALS: BP 133/76; PULSE 121; TEMP 35.9; BMI 19.8
--- NOTE | 2021-11-10 13:00 | PCM.WC.PN ---
History of Present Illness Date of Service: 11/10/21 Chief Complaint: Bilateral ischial pressure sores, Stage IV. History of Wound: Surgery 04/08/20 - 1. Excision bleeding right ischial/perineal pressure sore, Stage IV. 2. Control of prostatic bleeding with electrocautery and Surgicel hemostat. Wound Care - Rinse ulcers with Dakin's solution and then cover Silver alginate dressing covered with adaptic and topped with gauze daily. Wound culture obtained today, 11/10/21. Patient states that Dr. Sanabria, adult basic education teacher wanted his ulcer cultured. Wound culture from 01/20/21 positive for Proteus mirabilis, Cornybacterium minutissium and Bacteroides fragilis. He was referred to ID for antibiotic management, which he was placed on Cefdinir, Doxycycline and Flagyl for 10 days. Patient has long standing bilateral ischial pressure sores, Stage IV, with the left side extending to the femoral head and the right side extending to the perineal area and the prostate. Surgery would entail quite extensive excision with amputations at a tertiary center. Patient does not want to pursue any heroic surgeries at this time since it is not a guarantee his pressure issues won't recur. With aggressive amputations, his already tenuous balance would be even more disrupted. At the present time, we are providing conservative care on a monthly basis. He states his right leg gets in the way when transferring. He underwent a right AKA on 06/12/20 in [place]. Wound culture was done on 04/22/20. It showed Morganella morganii, Pseudomonas aeroginosa, Streptococcus group F, and Bacteroides fragilis. He has a lot of antibiotic allergies. His only real option is IV antibiotics. Dr. Chester also saw him at the [facility] and felt the wounds were colonized and held off on antibiotics at this time. If his clinical situation were to change, then would re-evaluate him for IV antibiotics at that time. Wound culture from 11/01/20 was positive for MRSA, E. coli, Proteus Mirabilis. He was treated with Augmentin and doxycycline. Today he denies any fever. He states his appetite is ok. Progress of Wound: Ulcers are stable. Patient states that Dr. Sanabria GI, want the ulcers cultured. Patient states he had a procedure recently but wasn't able to tell me what he had done. He had a colonoscopy and EGD on 09/24/21. Objective Data Objective Data Vital Signs: Vital Signs Temp Pulse Resp BP 96.6 F L 121 H 18 133/76 H 11/10/21 11:57 11/10/21 11:57 10/11/21 00:13 11/10/21 11:57 Body Mass Index (BMI) 19.8 Charges/Coding Procedures Integumentary 111xxx-113xx: 36085 Manisha subq tissue 20 sq cm/< Add On Codes: 69534 Manisha subq tissue add-on (x2) Physical Exam Const alert and oriented x3 General Appearance: cooperative HEENT normocephalic Resp normal respiratory effort Cardio regular rate GI Palpation: soft and tender Extremity normal capillary refill Skin Wound Narrative: Left ischial ulcer is stable, continues to have clear drainage when patient moves his hips, no odor from the drainage. Most likely synovial fluid. Left ischial/perineal ulcer is stable, no drainage. Neuro CN's II-XII intact bilaterally Psych Appearance: grossly normal Debridement Note Debridement Note Wound debrided: ischial ulcer-cluster Laterality: Left Wound Grade/Stage: Stage IV Type of Debridement: Excisional debridement Anesthesia Used: 4% Lidocaine Solution Depth: Down to and including healthy tissue and in the subcutaneous layer Percentage of wound debrided: 100 Instrument Used: 3mm curette Tissue Removed: Subcutaneous tissue, non viable tissue, some scar tissue. Severity: Fat Layer Exposed Amount of bleeding with debridement: Mild Bleeding Controlled with: Pressure and Compression and gauze Patient tolerated procedure: Patient tolerated procedure well Post-Debridement Measurements and Additional Note: Post-Debridement Measurements/Treatment - Nurse 1 - General Ulcer Assessment Start: 11/10/21 11:57 Freq: Status: Active Protocol: [email or web address].LOWDANIELITOT Activity Type Activity Date Activity User E-Sign Co-Sign Detail Recorded Client Recorded Date Recorded By Document 11/10/21 11:57 SALOME [id number] 11/10/21 12:01 SALOME 11/10/21 11:57 - Today's Visit Information Type of service Follow-up Visit (Physician/INDUSTRIAL SALES ENGINEER ) Arrival Mode Ambulatory Patient Identification Verified (Name & Yes ) Patient Requires Transmission-Based No Precautions Safety Precautions NA Height and Weight Body Mass Index (BMI) 19.8 BMI Classification Normal Vital Signs Temperature (97.8 F-99.1 F) 96.6 F L Temperature Source Temporal Pulse Rate (60-100) 121 H Pulse Location Monitor Blood Pressure (90/60-120/80) 133/76 H Blood Pressure Mean (mm Hg) 95 Source Monitor History Since Last Visit- (Skip if this is Patient's initial visit) Have you changed medications since your No last visit? Any new allergies or adverse reactions No Had a fall/change in ADL's that may No increase risk of falls Signs or symptoms of abuse and/or No neglect since last visit Have you been in the hospital since your No last visit? Has dressing in place as prescribed Yes Has compression in place as prescribed N/A Has offloadiing in place as prescribed N/A Experienced any changes in pain level or No management Pain Scale: 0-10 Numeric Is Patient Pain Free? Yes WC - Nurse 1 - General Ulcer Measurement Start: 11/10/21 11:57 Freq: Status: Active Protocol: Activity Type Activity Date Activity User E-Sign Co-Sign Detail Recorded Client Recorded Date Recorded By Document 11/10/21 11:57 SALOME [id number] 11/10/21 12:01 SALOME 11/10/21 11:57 Wound Center Nurse 1 #8 L Ischium -Combined with other wound No -Current Size (cm) - Length 7.1 -Current Size (cm) - Width 5.8 -Current Size (cm) - Depth 0.5 -Total Square Cm 41.18 -Photo Taken No -Tunneling No -Undermining/Tunneling No -Circular Undermining No -Change in Wound Grade/Stage No -Exudate Amt Medium -Wound Margin Distinct, Outline Attached -Granulation Amt Large (67-100%) -Granulation Quality Pale,[place] -Slough/Fibrin No -Necrosis Amt Medium (34-66%) -Necrotic Tissue Type Adherent Slough -Structure Exposed N/A -Texture (Steffi-wound Skin Appearance) No Abnormality, Assessed -Moisture (Steffi-wound Skin Appearance) No Abnormality, Assessed -Color (Steffi-wound Skin Appearance) No Abnormality, Assessed -Temperature (Steffi-wound Skin No Abnormality Appearance) (Pt Warm) -Tenderness on Palpation (Steffi-wound No Skin Appearance) -Ulcer Cleansing Soap and Water -Foul Odor after Cleansing No -Anesthetic Used 4% Lidocaine Solution #7 R Ischium cluster -Combined with other wound No -Current Size (cm) - Length 2.4 -Current Size (cm) - Width 0.3 -Current Size (cm) - Depth 0.3 -Total Square Cm 0.72 -Photo Taken No -Tunneling No -Undermining/Tunneling No -Circular Undermining No -Change in Wound Grade/Stage No -Exudate Amt Medium -Exudate Type Serosanguineous -Wound Margin Distinct, Outline Attached -Granulation Amt Medium (34-66%) -Granulation Quality Pale,[place] -Slough/Fibrin Yes -Necrosis Amt Small (1-33%) -Necrotic Tissue Type Adherent Slough -Structure Exposed N/A -Texture (Steffi-wound Skin Appearance) No Abnormality, Assessed -Moisture (Steffi-wound Skin Appearance) No Abnormality, Assessed -Color (Steffi-wound Skin Appearance) No Abnormality, Assessed -Temperature (Steffi-wound Skin No Abnormality Appearance) (Pt Warm) -Tenderness on Palpation (Steffi-wound No Skin Appearance) -Ulcer Cleansing Soap and Water -Foul Odor after Cleansing No WC - Nurse 2 - General Ulcer CM Notes Start: 11/10/21 11:57 Freq: Status: Active Protocol: Activity Type Activity Date Activity User E-Sign Co-Sign Detail Recorded Client Recorded Date Recorded By Document 11/10/21 12:12 [id number] 11/10/21 12:21 DEBORAH 11/10/21 12:12 Wound Center Nurse 2 #8 L Ischium -Time 12:13 -Correct Patient Yes -Correct Side, Site, Position Yes -Correct Procedure Yes -Procedure Performed Yes -Type of Procedure Debridement -Clinical Debridement Subcutaneous -Tissue Removed Subcutaneous -Post Debridement (cm) - Length 7.8 -Post Debridement (cm) - Width 6.5 -Post Debridement (cm) - Depth 0.8 -Total Square (Post) (cm) 50.70 -Area of Debridement (cm) - Length 7.8 -Area of Debridement (cm) - Width 6.5 -Total Square (Area) (cm) 50.70 -Tunneling No -Undermining/Tunneling No -Circular Undermining No -Wound/Ulcer Outcome Not Healed -Ulcer Cleansing Rinsed/ Irrigated with Saline -Foul Odor after Cleansing No -Bioengineered Tissue No -Bleeding Controlled with Pressure -Offloading No -Treatment Response Procedure Tolerated Well -Debridement - Subq, 1st 20sq cm No #7 R Ischium cluster -Time 12:20 -Correct Patient Yes -Correct Side, Site, Position Yes -Correct Procedure Yes -Procedure Performed Yes -Type of Procedure Debridement -Clinical Debridement Subcutaneous -Tissue Removed Subcutaneous -Post Debridement (cm) - Length 2.8 -Post Debridement (cm) - Width 0.8 -Post Debridement (cm) - Depth 0.3 -Total Square (Post) (cm) 2.24 -Area of Debridement (cm) - Length 2.8 -Area of Debridement (cm) - Width 0.8 -Total Square (Area) (cm) 2.24 -Tunneling No -Undermining/Tunneling No -Circular Undermining No -Wound/Ulcer Outcome Not Healed -Ulcer Cleansing Rinsed/ Irrigated with Saline -Foul Odor after Cleansing No -Bioengineered Tissue No -Bleeding Controlled with Pressure -Offloading No -Treatment Response Procedure Tolerated Well -Debridement - Subq, 1st 20sq cm Yes -Debridement, SubQ, ea addt'l 20sq cm 2 or part thereof Pain Scale: 0-10 Numeric Is Patient Pain Free? Yes - Nurse 3 - General Ulcer D/C NN Start: 11/10/21 11:57 Freq: Status: Active Protocol: Activity Type Activity Date Activity User E-Sign Co-Sign Detail Recorded Client Recorded Date Recorded By Document 11/10/21 12:24 DEBORAH [id number] 11/10/21 12:24 DEBORAH 11/10/21 12:24 Wound Care Nurse 3 #8 L Ischium -Ulcer Cleansing Rinsed/ Irrigated with Saline -Foul Odor after Cleansing No -Primary Dressing Applied Aquacel AG 4x4 -Primary Dressing Covered/Secured with Dry Gauze, Secured with Tape -Aquacel AG 4x4 1 #7 R Ischium cluster -Ulcer Cleansing Rinsed/ Irrigated with Saline -Foul Odor after Cleansing No -Primary Dressing Applied Aquacel AG 4x4 -Primary Dressing Covered/Secured with Dry Gauze, Secured with Tape -Aquacel AG 4x4 0 Pain Scale: 0-10 Numeric Is Patient Pain Free? Yes - Visit Discharge Discharge Condition Stable Ambulatory Status Wheelchair Transportation [facility] transport Medication Reconcilliation completed & Yes provided to patient/care provider Clinical Summary of Care Provided Yes Additional Wound Wound debrided: ischial/perineal ulcer Laterality: Right Type of Debridement: Excisional debridement Anesthesia Used: 4% Lidocaine Solution Depth: Down to and including healthy tissue and in the subcutaneous layer Percentage of wound debrided: 100 Instrument Used: 3mm curette Tissue Removed: Subcutaneous tissue and slough Severity: Fat Layer Exposed Amount of bleeding with debridement: Mild Bleeding Controlled with: Pressure Patient tolerated procedure: Patient tolerated procedure well Assessment/Plan Assessment/Plan (1) Pressure sore of left ischium, stage 4: CODE(S): L89.324 - Pressure ulcer of left buttock, stage 4 (2) Right ischial pressure sore, stage 4: CODE(S): L89.314 - Pressure ulcer of right buttock, stage 4 (3) Paraplegia at T4 level: CODE(S): G82.20 - Paraplegia, unspecified (4) Perineal ulcer: CODE(S): L98.499 - Non-pressure chronic ulcer of skin of other sites with unspecified severity QUALIFIERS: Non-pressure ulcer stage: unspecified non-pressure ulcer stage Qualified Code(s): L98.499 - Non-pressure chronic ulcer of skin of other sites with unspecified severity (5) Chronic osteomyelitis, pelvis: CODE(S): M86.659 - Other chronic osteomyelitis, unspecified thigh (6) History of MRSA infection: CODE(S): Z86.14 - Personal history of Methicillin resistant Staphylococcus aureus infection PLAN: Wound care - Moistened silver alginate covered with adaptic and topped by ABD, DAILY, to both ulcers. Both ulcers are dry with thickened scar tissue. The left ischial ulcer is a cluster due to being dry in the center where there is scar tissue and around the edges is where there is depth and drainage. Wound culture obtained today 11/10/21 per patient request. He states that Dr. Sanabria wants the culture done. I will contact Dr. Sanabria when the results are back. He has seen ID in the past for his wound culture of his ulcers that are chronically infected. Depending on the results of the cultures, it may necessitate the need for treatment with antibiotics. Wound culture obtained on 01/20/21, he was positive for Proteus mirabilis, Cornybacterium minutissimum and Bacteroides fragilis. Due to the resistant organisms and his allergies, he was referred to ID for antibiotic treatment. He was started on Cefdinir, Doxycycline and Flagyl all for 14 days, which he completed. Wound culture from 11/01/20 was positive for MRSA, E. coli, Proteus Mirabilis. He was treated with Augmentin and doxycycline for 6 weeks. Encourage nutritional supplementation with protein to help the healing process. Encouraged the patient to stop smoking as it may have deleterious effects on wound healing. I continue to suggest further evaluation at a tertiary hospital. The patient states he does not have free transportation to go to a larger hospital. Followup 3 weeks.
== END 2021-11-10 23:59 ==
LOC: WC 11:56
PROVIDERS: PCP Internal Medicine; Visit Provider Nurse Practitioner Family
DX: L89.214 Pressure ulcer of right hip, stage 4 (principal); L89.224 Pressure ulcer of left hip, stage 4; G82.20 Paraplegia, unspecified; L98.492 Non-pressure chronic ulcer of skin of other sites with fat layer exposed; M86.659 Other chronic osteomyelitis, unspecified thigh; Z86.14 Personal history of Methicillin resistant Staphylococcus aureus infection
CPT/HCPCS: 11042; 11045; 87070; 87075; 87077; 87186; 87205

== ENCOUNTER 2021-11-12 08:40 | Outpatient (CLI) | payer MEDICARE, MEDICAID, SELFPAY | END 2021-11-12 23:59 | disposition short-term general hospital (02) | LOC: RAD 08:43 | PROVIDERS: PCP Internal Medicine; Referring Provider Internal Medicine Gastroenterology; Visit Provider Internal Medicine Gastroenterology | DX: K50.10 Crohn's disease of large intestine without complications (principal) ==

== ENCOUNTER 2021-12-08 14:15 | Outpatient (RCR) | payer MEDICARE, MEDICAID, SELFPAY ==
[2021-11-11 00:18] VITALS: BP 133/76; PULSE 121; RESP 18; TEMP 35.9; BMI 19.8
[2021-12-08 14:16] VITALS: BP 107/65; PULSE 114; RESP 16; TEMP 35.9; BMI 19.8
--- NOTE | 2021-12-08 15:36 | PN.PCM_ITS ---
History of Present Illness Date of Service: 12/08/21 Chief Complaint: Bilateral ischial pressure sores, Stage IV. History of Wound: Surgery 04/08/20 - 1. Excision bleeding right ischial/perineal pressure sore, Stage IV. 2. Control of prostatic bleeding with electrocautery and Surgicel hemostat. Wound Care - Rinse ulcers with Dakin's solution and then cover Silver alginate dressing covered with adaptic and topped with gauze daily. Wound culture from 11/10/21 of left ischial ulcer positive for Proteus mirabilis, Proteus mirabilis #2, MRSA, Corynebacterium striatum, and Bacteroides fragilis group. He was started on Augmentin and doxycycline and a probiotic. Patient has long standing bilateral ischial pressure sores, Stage IV, with the left side extending to the femoral head and the right side extending to the perineal area and the prostate. Surgery would entail quite extensive excision with amputations at a tertiary center. Patient does not want to pursue any heroic surgeries at this time since it is not a guarantee his pressure issues won't recur. With aggressive amputations, his already tenuous balance would be even more disrupted. At the present time, we are providing conservative care on a monthly basis. Today he denies any fever. He states his appetite is ok. Progress of Wound: Left ischial and right perineal ulcers are stable. Objective Data Objective Data Vital Signs: Vital Signs Temp Pulse Resp BP 96.6 F L 114 H 16 107/65 12/08/21 14:16 12/08/21 14:16 12/08/21 14:16 12/08/21 14:16 Oxygen Delivery Method Room Air Body Mass Index (BMI) 19.8 Charges/Coding Procedures Integumentary 111xxx-113xx: [id number] Manisha musc/fascia 20 sq cm/< Add On Codes: 93443 Manisha musc/fascia add-on (x2) Physical Exam Const alert and oriented x3 General Appearance: cooperative HEENT normocephalic Resp normal respiratory effort Cardio regular rate GI non-tender Extremity normal capillary refill Skin Wound Narrative: Left ischial ulcer is now a cluster with some healing in the center, it is pink with areas that drain clear fluid with movement. Right perineal ulcer is stable with thickened scar tissue surrounding the ulcer. Neuro CN's II-XII intact bilaterally Debridement Note Debridement Note Wound debrided: Ischial ulcer Laterality: Left Wound Grade/Stage: Stage IV Type of Debridement: Excisional debridement Anesthesia Used: 4% Lidocaine Solution Depth: Down to and including healthy tissue, in the subcutaneous layer and to muscle Percentage of wound debrided: 100 Instrument Used: 5mm curette Tissue Removed: Nonviable tissue and slough into the muscle Severity: Fat Layer Exposed Amount of bleeding with debridement: Mild Bleeding Controlled with: Pressure Patient tolerated procedure: Patient tolerated procedure well Post-Debridement Measurements and Additional Note: Post-Debridement Measurements/Treatment - Nurse 1 - General Ulcer Assessment Start: 12/08/21 14:16 Freq: Status: Active Protocol: WILLIAMS Activity Type Activity Date Activity User E-Sign Co-Sign Detail Recorded Client Recorded Date Recorded By Document 12/08/21 14:16 [facility] [id number] 12/08/21 14:27 [facility] 12/08/21 14:16 WC - Today's Visit Information Type of service Follow-up Visit (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/INTERCEPTOR 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 ) Arrival Mode Wheelchair Transfer Assistance Other Transfer Assist (Other) 1 assist Patient Identification Verified (Name & Yes ) Patient Requires Transmission-Based No Precautions Height and Weight Body Mass Index (BMI) 19.8 BMI Classification Normal Vital Signs Temperature (97.8 F-99.1 F) 96.6 F L Temperature Source Temporal Pulse Rate (60-100) 114 H Pulse Location Monitor Respiratory Rate (12-18) 16 Respiratory rate source Observation Oxygen Delivery Method Room Air Blood Pressure (90/60-120/80) 107/65 Blood Pressure Mean (mm Hg) 79 Source Monitor Position Sitting Blood Pressure Location Left Arm History Since Last Visit- (Skip if this is Patient's initial visit) Have you changed medications since your No last visit? Any new allergies or adverse reactions No Had a fall/change in ADL's that may No increase risk of falls Signs or symptoms of abuse and/or No neglect since last visit Have you been in the hospital since your No last visit? Has dressing in place as prescribed Yes Has compression in place as prescribed N/A Has offloadiing in place as prescribed N/A Experienced any changes in pain level or No management Pain Scale: 0-10 Numeric Is Patient Pain Free? Yes - Nurse 1 - General Ulcer Measurement Start: 12/08/21 14:16 Freq: Status: Active Protocol: Activity Type Activity Date Activity User E-Sign Co-Sign Detail Recorded Client Recorded Date Recorded By Document 12/08/21 14:16 [facility] [id number] 12/08/21 14:27 [facility] 12/08/21 14:16 Wound Center Nurse 1 #8 L Ischium cluster -Combined with other wound No -Current Size (cm) - Length 8 -Current Size (cm) - Width 5.6 -Current Size (cm) - Depth 0.5 -Total Square Cm 44.8 -Epithelialization None Present -Tunneling No -Undermining/Tunneling Yes -Undermining/Tunneling Starts (O'clock 6 ) -Undermining/Tunneling Ends (O'clock) 8 -Maximum Distance (cm) 0.8 -Circular Undermining No -Exudate Amt Medium -Exudate Type Serosanguineous -Wound Margin Thickened & Rolled Under -Granulation Amt Large (67-100%) -Granulation Quality Red -Slough/Fibrin Yes -Necrosis Amt Small (1-33%) -Necrotic Tissue Type Adherent Slough -Texture (Steffi-wound Skin Appearance) Assessed, Scarring -Moisture (Steffi-wound Skin Appearance) Assessed -Color (Steffi-wound Skin Appearance) Assessed -Temperature (Stfefi-wound Skin No Abnormality Appearance) (Pt Warm) -Tenderness on Palpation (Steffi-wound No Skin Appearance) -Ulcer Cleansing Rinsed/ Irrigated with Saline -Foul Odor after Cleansing No #7 R Ischium cluster -Combined with other wound No -Current Size (cm) - Length 2 -Current Size (cm) - Width 0.3 -Current Size (cm) - Depth 0.3 -Total Square Cm 0.6 -Photo Taken No -Epithelialization None Present -Tunneling No -Undermining/Tunneling No -Circular Undermining No -Exudate Amt Small -Exudate Type Serosanguineous -Wound Margin Thickened & Rolled Under -Granulation Amt Large (67-100%) -Granulation Quality Red -Slough/Fibrin Yes -Necrosis Amt Small (1-33%) -Necrotic Tissue Type Adherent Slough -Texture (Steffi-wound Skin Appearance) Assessed, Scarring -Moisture (Steffi-wound Skin Appearance) Assessed, Maceration -Color (Steffi-wound Skin Appearance) Assessed,Palor -Temperature (Steffi-wound Skin No Abnormality Appearance) (Pt Warm) -Tenderness on Palpation (Steffi-wound No Skin Appearance) -Ulcer Cleansing Rinsed/ Irrigated with Saline -Foul Odor after Cleansing No WC - Nurse 2 - General Ulcer CM Notes Start: 12/08/21 14:16 Freq: Status: Active Protocol: Activity Type Activity Date Activity User E-Sign Co-Sign Detail Recorded Client Recorded Date Recorded By Document 12/08/21 14:49 DEBORAH [id number] 12/08/21 14:56 DEBORAH 12/08/21 14:49 Wound Center Nurse 2 #8 L Ischium cluster -Time 14:49 -Correct Patient Yes -Correct Side, Site, Position Yes -Correct Procedure Yes -Procedure Performed Yes -Type of Procedure Debridement -Clinical Debridement Muscle / Fascia -Tissue Removed Muscle -Post Debridement (cm) - Length 6.5 -Post Debridement (cm) - Width 8.0 -Post Debridement (cm) - Depth 0.6 -Total Square (Post) (cm) 52.00 -Area of Debridement (cm) - Length 6.5 -Area of Debridement (cm) - Width 8.0 -Total Square (Area) (cm) 52.00 -Tunneling No -Undermining/Tunneling No -Circular Undermining No -Wound/Ulcer Outcome Not Healed -Ulcer Cleansing Rinsed/ Irrigated with Saline -Foul Odor after Cleansing No -Bioengineered Tissue No -Bleeding Controlled with Pressure -Offloading No -Treatment Response Procedure Tolerated Well -Debridement - Subq, 1st 20sq cm No -Debridement - Muscle / Fascia, 1st Yes 20sq cm -Debridement, Muscle/Fascia, ea addt'l 2 20sq cm or part thereof #7 R Ischium cluster -Time 14:49 -Correct Patient Yes -Correct Side, Site, Position Yes -Correct Procedure Yes -Procedure Performed Yes -Type of Procedure Debridement -Clinical Debridement Muscle / Fascia -Tissue Removed Muscle -Post Debridement (cm) - Length 2.0 -Post Debridement (cm) - Width 0.6 -Post Debridement (cm) - Depth 0.3 -Total Square (Post) (cm) 1.20 -Area of Debridement (cm) - Length 2.0 -Area of Debridement (cm) - Width 0.6 -Total Square (Area) (cm) 1.20 -Tunneling No -Undermining/Tunneling No -Circular Undermining No -Wound/Ulcer Outcome Not Healed -Ulcer Cleansing Rinsed/ Irrigated with Saline -Foul Odor after Cleansing No -Bioengineered Tissue No -Bleeding Controlled with Pressure -Offloading No -Treatment Response Procedure Tolerated Well -Debridement - Subq, 1st 20sq cm No -Debridement - Muscle / Fascia, 1st No 20sq cm Pain Scale: 0-10 Numeric Is Patient Pain Free? Yes - Nurse 3 - General Ulcer D/C NN Start: 12/08/21 14:16 Freq: Status: Active Protocol: Activity Type Activity Date Activity User E-Sign Co-Sign Detail Recorded Client Recorded Date Recorded By Document 12/08/21 15:24 [facility] [id number] 12/08/21 15:25 [facility] 12/08/21 15:24 Wound Care Nurse 3 #8 L Ischium cluster -Ulcer Cleansing Rinsed/ Irrigated with Saline -Foul Odor after Cleansing No -Primary Dressing Applied Aquacel AG 4x4 -Primary Dressing Covered/Secured with Secured with Tape,Other -Other Covering abd -Aquacel AG 4x4 1 #7 R Ischium cluster -Ulcer Cleansing Rinsed/ Irrigated with Saline -Foul Odor after Cleansing No -Primary Dressing Applied Aquacel AG 4x4 -Primary Dressing Covered/Secured with Secured with Tape,Other -Other Covering abd -Aquacel AG 4x4 0 Treatment Response Procedure Tolerated Well Pain Scale: 0-10 Numeric Is Patient Pain Free? Yes - Visit Discharge Discharge Condition Stable Ambulatory Status Wheelchair Transportation Private Auto Additional Wound Wound debrided: Perineal ulcer Laterality: Right Wound Grade/Stage: Stage IV Type of Debridement: Excisional debridement Anesthesia Used: 4% Lidocaine Solution Depth: Down to and including healthy tissue, in the subcutaneous layer and to muscle Percentage of wound debrided: 100 Instrument Used: 3mm curette Tissue Removed: Nonviable tissue and slough into the muscle Severity: Fat Layer Exposed Amount of bleeding with debridement: Mild Bleeding Controlled with: Pressure and Compression and gauze Patient tolerated procedure: Patient tolerated procedure well Assessment/Plan Assessment/Plan (1) Pressure sore of left ischium, stage 4: CODE(S): L89.324 - Pressure ulcer of left buttock, stage 4 (2) Perineal ulcer: CODE(S): L98.499 - Non-pressure chronic ulcer of skin of other sites with unspecified severity QUALIFIERS: Non-pressure ulcer stage: unspecified non-pressure ulcer stage Qualified Code(s): L98.499 - Non-pressure chronic ulcer of skin of other sites with unspecified severity (3) Chronic osteomyelitis, pelvis: CODE(S): M86.659 - Other chronic osteomyelitis, unspecified thigh (4) Paraplegia at T4 level: CODE(S): G82.20 - Paraplegia, unspecified (5) MRSA (methicillin resistant Staphylococcus aureus) infection: CODE(S): A49.02 - Methicillin resistant Staphylococcus aureus infection, unspecified site (6) History of tobacco use: CODE(S): Z87.891 - Personal history of nicotine dependence PLAN: Wound care - Silver alginate covered with adaptic and topped by ABD, DAILY, to both ulcers. Both ulcers are dry with thickened scar tissue. The left ischial ulcer is a cluster due to being dry in the center where there is scar tissue and around the edges is where there is depth and drainage. Wound culture obtained today 11/10/21 per patient request. Encourage nutritional supplementation with protein to help the healing process. Encouraged the patient to stop smoking as it may have deleterious effects on wound healing. Wound culture from 11/10/21 of left ischial ulcer positive for Proteus mirabilis, Proteus mirabilis #2, MRSA, Corynebacterium striatum, and Bacteroides fragilis group. He was started on Augmentin and doxycycline and a probiotic. This information was shared with SHAHBAZ Moon , because he was the person asking for the cultures. I continue to suggest further evaluation at a tertiary hospital. The patient states he does not have free transportation to go to a larger hospital. Followup 3 weeks.
== END 2021-12-08 23:59 ==
LOC: WC 14:15
PROVIDERS: PCP Internal Medicine; Visit Provider Nurse Practitioner Family
DX: L89.224 Pressure ulcer of left hip, stage 4 (principal); L89.214 Pressure ulcer of right hip, stage 4; G82.20 Paraplegia, unspecified; M86.659 Other chronic osteomyelitis, unspecified thigh; Z87.891 Personal history of nicotine dependence; A49.02 Methicillin resistant Staphylococcus aureus infection, unspecified site
CPT/HCPCS: 11043; 11046

== ENCOUNTER 2022-01-05 11:15 | Outpatient (RCR) | payer MEDICARE, MEDICAID, SELFPAY ==
[2021-12-09 00:21] VITALS: BP 107/65; PULSE 114; RESP 16; TEMP 35.9; BMI 19.8
[2022-01-05 11:12] VITALS: BP 130/48; PULSE 62; TEMP 36.9; BMI 19.8
--- NOTE | 2022-01-05 12:27 | PCM.WC.PN ---
History of Present Illness Date of Service: 01/05/22 Chief Complaint: Bilateral ischial pressure sores, Stage IV. History of Wound: Surgery 04/08/20 - 1. Excision bleeding right ischial/perineal pressure sore, Stage IV. 2. Control of prostatic bleeding with electrocautery and Surgicel hemostat. Wound Care - Rinse ulcers with Dakin's solution and then cover Silver alginate dressing covered with gauze then top with ABD daily. New left anterior hip crease pressure ulcer that is red and excoriated. Wound culture from 01/20/21 positive for Proteus mirabilis, Cornybacterium minutissium and Bacteroides fragilis. He was referred to ID for antibiotic management, which he was placed on Cefdinir, Doxycycline and Flagyl for 10 days. Patient has long standing bilateral ischial pressure sores, Stage IV, with the left side extending to the femoral head and the right side extending to the perineal area and the prostate. Surgery would entail quite extensive excision with amputations at a tertiary center. Patient does not want to pursue any heroic surgeries at this time since it is not a guarantee his pressure issues won't recur. With aggressive amputations, his already tenuous balance would be even more disrupted. At the present time, we are providing conservative care on a monthly basis. He states his right leg gets in the way when transferring. He underwent a right AKA on 06/12/20 in [place]. Wound culture was done on 04/22/20. It showed Morganella morganii, Pseudomonas aeroginosa, Streptococcus group F, and Bacteroides fragilis. He has a lot of antibiotic allergies. His only real option is IV antibiotics. Dr. Chester also saw him at the [facility] and felt the wounds were colonized and held off on antibiotics at this time. If his clinical situation were to change, then would re-evaluate him for IV antibiotics at that time. Wound culture from 11/01/20 was positive for MRSA, E. coli, Proteus Mirabilis. He was treated with Augmentin and doxycycline. Today he denies any fever. He states his appetite is ok. Progress of Wound: New pressure area of redness in left anterior hip crease. Left ischial is stable. Right ischial/perineal ulcer is stable. Objective Data Objective Data Vital Signs: Vital Signs Temp Pulse Resp BP 98.4 F 62 16 130/48 H 01/05/22 11:12 01/05/22 11:12 12/09/21 00:21 01/05/22 11:12 Body Mass Index (BMI) 19.8 Charges/Coding Procedures Integumentary 111xxx-113xx: [id number] Manisha musc/fascia 20 sq cm/< Add On Codes: 89791 Manisha musc/fascia add-on (x3) Physical Exam Const alert and oriented x3 General Appearance: cooperative HEENT normocephalic Resp normal respiratory effort Cardio regular rate GI Palpation: soft Extremity normal capillary refill Skin Wound Narrative: Left ischial ulcer is increased slough, there is a deep 3 cm tunnel at 3 o'clock in the crease where the clear synovial fluid drains. Right ischial/perineal ulcer with increased scar tissue surrounding the center. New red pressure ulcer on the left anterior hip crease with area of redness 4x4 with open area of 0.1 cm diameter. Neuro CN's II-XII intact bilaterally Psych Appearance: grossly normal Debridement Note Debridement Note Wound debrided: ischial ulcer Laterality: Left Wound Grade/Stage: Stage IV Type of Debridement: Excisional debridement Anesthesia Used: 4% Lidocaine Solution Depth: Down to and including healthy tissue Percentage of wound debrided: 100 Instrument Used: 5mm curette Tissue Removed: Subcutaneous tissue and slough into the muscle Severity: Fat Layer Exposed Amount of bleeding with debridement: Mild Bleeding Controlled with: Pressure, Compression and gauze and Silver Nitrate (at 6 o'clock edge) Patient tolerated procedure: Patient tolerated procedure well Post-Debridement Measurements and Additional Note: Post-Debridement Measurements/Treatment - Nurse 1 - General Ulcer Assessment Start: 01/05/22 11:12 Freq: Status: Active Protocol: NIKA.BONNY Activity Type Activity Date Activity User E-Sign Co-Sign Detail Recorded Client Recorded Date Recorded By Document 01/05/22 11:12 MENDEZ [id number] 01/05/22 11:22 MENDEZ 01/05/22 11:12 - Today's Visit Information Type of service Follow-up Visit (Physician/LINING BRUSHER ) Arrival Mode Wheelchair Patient Identification Verified (Name & Yes ) Height and Weight Body Mass Index (BMI) 19.8 BMI Classification Normal Vital Signs Temperature (97.8 F-99.1 F) 98.4 F Temperature Source Temporal Pulse Rate (60-100) 62 Blood Pressure (90/60-120/80) 130/48 H Blood Pressure Mean (mm Hg) 75 Source Monitor Position Semi-Fowlers Blood Pressure Location Right Arm History Since Last Visit- (Skip if this is Patient's initial visit) Have you changed medications since your No last visit? Any new allergies or adverse reactions No Had a fall/change in ADL's that may No increase risk of falls Signs or symptoms of abuse and/or No neglect since last visit Have you been in the hospital since your No last visit? Has dressing in place as prescribed Yes Has compression in place as prescribed N/A Has offloadiing in place as prescribed N/A Experienced any changes in pain level or No management Pain Scale: 0-10 Numeric Is Patient Pain Free? Yes WC - Nurse 1 - General Ulcer Measurement Start: 01/05/22 11:12 Freq: Status: Active Protocol: Activity Type Activity Date Activity User E-Sign Co-Sign Detail Recorded Client Recorded Date Recorded By Document 01/05/22 11:12 MENDEZ [id number] 01/05/22 11:22 MENDEZ 01/05/22 11:12 Wound Center Nurse 1 #8 L Ischium cluster -Current Size (cm) - Length 2.3 -Current Size (cm) - Width 0.5 -Current Size (cm) - Depth 0.3 -Total Square Cm 1.15 -Exudate Amt Small -Exudate Type Serosanguineous -Wound Margin Distinct, Outline Attached -Granulation Amt Medium (34-66%) -Granulation Quality [place],Red -Necrosis Amt Small (1-33%) -Necrotic Tissue Type Adherent Slough -Structure Exposed Bone,Fat Layer Exposed -Texture (Steffi-wound Skin Appearance) Assessed, Scarring -Moisture (Steffi-wound Skin Appearance) No Abnormality, Assessed -Color (Steffi-wound Skin Appearance) No Abnormality, Assessed -Temperature (Steffi-wound Skin No Abnormality Appearance) (Pt Warm) -Tenderness on Palpation (Steffi-wound No Skin Appearance) -Ulcer Cleansing Rinsed/ Irrigated with Saline -Foul Odor after Cleansing No #7 R Ischium cluster -Current Size (cm) - Length 7 -Current Size (cm) - Width 6 -Current Size (cm) - Depth 0.6 -Total Square Cm 42 -Granulation Amt Large (67-100%) -Granulation Quality Red -Necrosis Amt Small (1-33%) -Necrotic Tissue Type Adherent Slough -Structure Exposed Muscle,Bone -Texture (Steffi-wound Skin Appearance) Assessed, Scarring -Color (Steffi-wound Skin Appearance) No Abnormality, Assessed -Temperature (Steffi-wound Skin No Abnormality Appearance) (Pt Warm) -Tenderness on Palpation (Steffi-wound No Skin Appearance) -Ulcer Cleansing Rinsed/ Irrigated with Saline WC - Nurse 2 - General Ulcer CM Notes Start: 01/05/22 11:12 Freq: Status: Active Protocol: Activity Type Activity Date Activity User E-Sign Co-Sign Detail Recorded Client Recorded Date Recorded By Document 01/05/22 11:28 DEBORAH [id number] 01/05/22 11:41 DEBORAH 01/05/22 11:28 Wound Center Nurse 2 9-left hip crease (pre-ulcer) -Correct Patient No -Correct Side, Site, Position No -Correct Procedure No -Procedure Performed No -Post Debridement (cm) - Length 0.1 -Post Debridement (cm) - Width 0.1 -Post Debridement (cm) - Depth 0.1 -Total Square (Post) (cm) 0.01 -Area of Debridement (cm) - Length 0.1 -Area of Debridement (cm) - Width 0.1 -Total Square (Area) (cm) 0.01 -Tunneling No -Undermining/Tunneling No -Circular Undermining No -Wound/Ulcer Outcome Not Healed -Ulcer Cleansing Rinsed/ Irrigated with Saline -Foul Odor after Cleansing No -Bleeding Controlled with Pressure -Treatment Response Procedure Tolerated Well -Offloading No #8 L Ischium cluster -Time 11:29 -Correct Patient Yes -Correct Side, Site, Position Yes -Correct Procedure Yes -Procedure Performed Yes -Type of Procedure Debridement -Clinical Debridement Muscle / Fascia -Tissue Removed Muscle -Post Debridement (cm) - Length 7.0 -Post Debridement (cm) - Width 8.5 -Post Debridement (cm) - Depth 0.4 -Total Square (Post) (cm) 59.50 -Area of Debridement (cm) - Length 7.0 -Area of Debridement (cm) - Width 8.5 -Total Square (Area) (cm) 59.50 -Tunneling No -Undermining/Tunneling Yes -Undermining/Tunneling Starts (O'clock 2 ) -Undermining/Tunneling Ends (O'clock) 4 -Maximum Distance (cm) 3.7 -Circular Undermining No -Wound/Ulcer Outcome Not Healed -Ulcer Cleansing Rinsed/ Irrigated with Saline -Foul Odor after Cleansing No -Bioengineered Tissue No -Bleeding Controlled with Pressure,Silver Nitrate -Treatment Response Procedure Tolerated Well -Offloading No -Pressure Reduction Wheelchair cushion -Debridement - Subq, 1st 20sq cm No -Debridement - Muscle / Fascia, 1st Yes 20sq cm -Debridement, Muscle/Fascia, ea addt'l 2 20sq cm or part thereof #7 R Ischium cluster -Time 11:29 -Correct Patient Yes -Correct Side, Site, Position Yes -Correct Procedure Yes -Procedure Performed Yes -Type of Procedure Debridement -Clinical Debridement Muscle / Fascia -Tissue Removed Muscle -Post Debridement (cm) - Length 3.0 -Post Debridement (cm) - Width 0.8 -Post Debridement (cm) - Depth 0.4 -Total Square (Post) (cm) 2.40 -Area of Debridement (cm) - Length 3.0 -Area of Debridement (cm) - Width 0.8 -Total Square (Area) (cm) 2.40 -Tunneling No -Undermining/Tunneling No -Circular Undermining No -Wound/Ulcer Outcome Not Healed -Ulcer Cleansing Rinsed/ Irrigated with Saline -Foul Odor after Cleansing No -Bioengineered Tissue No -Bleeding Controlled with Pressure -Treatment Response Procedure Tolerated Well -Offloading No -Pressure Reduction Wheelchair cushion -Debridement - Subq, 1st 20sq cm No -Debridement - Muscle / Fascia, 1st No 20sq cm Pain Scale: 0-10 Numeric Is Patient Pain Free? Yes WC - Nurse 3 - General Ulcer D/C NN Start: 01/05/22 11:12 Freq: Status: Active Protocol: Activity Type Activity Date Activity User E-Sign Co-Sign Detail Recorded Client Recorded Date Recorded By Document 01/05/22 11:56 [facility] [id number] 01/05/22 11:57 [facility] 01/05/22 11:56 Wound Care Nurse 3 9-left hip crease (pre-ulcer) -Ulcer Cleansing Rinsed/ Irrigated with Saline -Foul Odor after Cleansing No -Primary Dressing Applied Mepilex Border -Mepilex Border 1 #8 L Ischium cluster -Ulcer Cleansing Rinsed/ Irrigated with Saline -Foul Odor after Cleansing No -Primary Dressing Applied Aquacel AG 4x4 -Primary Dressing Covered/Secured with Secured with Tape,Other -Other Covering ABD -Aquacel AG 4x4 1 #7 R Ischium cluster -Ulcer Cleansing Rinsed/ Irrigated with Saline -Foul Odor after Cleansing No -Primary Dressing Applied Aquacel AG 4x4 -Primary Dressing Covered/Secured with Secured with Tape,Other -Other Covering ABD -Aquacel AG 4x4 0 Treatment Response Procedure Tolerated Well Pain Scale: 0-10 Numeric Is Patient Pain Free? Yes WC - Visit Discharge Discharge Condition Stable Ambulatory Status Wheelchair Transportation Private Auto Additional Wound Wound debrided: ischial/perineal ulcer Laterality: Right Wound Grade/Stage: Stage IV Type of Debridement: Excisional debridement Anesthesia Used: 4% Lidocaine Solution Depth: Down to and including healthy tissue, in the subcutaneous layer and to muscle Percentage of wound debrided: 100 Instrument Used: 3mm curette Tissue Removed: Subcutaneous tissue and slough Severity: Fat Layer Exposed Bleeding Controlled with: Pressure and Compression and gauze Additional Wound Wound debrided: anterior hip ulcer - not debrided Laterality: Left Wound Grade/Stage: Stage 2 Assessment/Plan Assessment/Plan (1) Pressure sore of left ischium, stage 4: CODE(S): L89.324 - Pressure ulcer of left buttock, stage 4 (2) Right ischial pressure sore, stage 4: CODE(S): L89.314 - Pressure ulcer of right buttock, stage 4 (3) Perineal ulcer: CODE(S): L98.499 - Non-pressure chronic ulcer of skin of other sites with unspecified severity QUALIFIERS: Non-pressure ulcer stage: unspecified non-pressure ulcer stage Qualified Code(s): L98.499 - Non-pressure chronic ulcer of skin of other sites with unspecified severity (4) Chronic osteomyelitis, pelvis: CODE(S): M86.659 - Other chronic osteomyelitis, unspecified thigh (5) History of tobacco use: CODE(S): Z87.891 - Personal history of nicotine dependence (6) Pressure ulcer of left hip: CODE(S): L89.229 - Pressure ulcer of left hip, unspecified stage PLAN: Wound care - Silver alginate covered with gauze and ABD to both the left ischial ulcer and the right ischial/perineal ulcer. They have moderate amount of drainage. The left ischial tunnel drains clear, synovial fluid from his hip. The new left anterior hip crease ulcer has a red area with a small 0.1 cm open area. No debridement of this ulcer was done. Place Mepilex dressing over the ulcer to and change 3 times per week. Hopefully this will give some cushion to help prevent further pressure. Encourage nutritional supplementation with protein to help the healing process. Encouraged the patient to stop smoking as it may have deleterious effects on wound healing. Wound culture from 11/10/21 of left ischial ulcer positive for Proteus mirabilis, Proteus mirabilis #2, MRSA, Corynebacterium striatum, and Bacteroides fragilis group. He was started on Augmentin and doxycycline and a probiotic. This information was shared with SHAHBAZ Moon , because he was the person asking for the cultures. I continue to suggest further evaluation at a tertiary hospital. The patient states he does not have free transportation to go to a larger hospital. He states he has a referral to Dr. Pinto from Dr. Sanabria to discuss options for his ulcers. Followup 3 weeks.
== END 2022-01-08 23:59 | disposition home or self-care (01) ==
LOC: WC 11:15
PROVIDERS: PCP Internal Medicine; Visit Provider Nurse Practitioner Family
DX: L89.224 Pressure ulcer of left hip, stage 4 (principal); L89.214 Pressure ulcer of right hip, stage 4; G82.20 Paraplegia, unspecified; Z89.611 Acquired absence of right leg above knee; M86.659 Other chronic osteomyelitis, unspecified thigh; Z87.891 Personal history of nicotine dependence
CPT/HCPCS: 11043; 11046

== ENCOUNTER 2022-02-02 11:15 | Outpatient (RCR) | payer MEDICARE, MEDICAID, SELFPAY ==
[2022-01-09 00:22] VITALS: BP 130/48; PULSE 62; RESP 16; TEMP 36.9; BMI 19.8
[2022-02-02 11:20] VITALS: BP 120/80; PULSE 130; TEMP 36.1; BMI 19.8
--- NOTE | 2022-02-02 13:18 | PN.PCM_ITS ---
History of Present Illness Date of Service: 02/02/22 Chief Complaint: Bilateral ischial pressure sores, Stage IV. History of Wound: Surgery 04/08/20 - 1. Excision bleeding right ischial/perineal pressure sore, Stage IV. 2. Control of prostatic bleeding with electrocautery and Surgicel hemostat. Wound Care - Rinse ulcers with Dakin's solution and then cover Silver alginate dressing covered with gauze then top with ABD daily. New left anterior hip crease pressure ulcer that is red and excoriated. Wound culture from 01/20/21 positive for Proteus mirabilis, Cornybacterium minutissium and Bacteroides fragilis. He was referred to ID for antibiotic management, which he was placed on Cefdinir, Doxycycline and Flagyl for 10 days. Patient has long standing bilateral ischial pressure sores, Stage IV, with the left side extending to the femoral head and the right side extending to the perineal area and the prostate. Surgery would entail quite extensive excision with amputations at a tertiary center. Patient does not want to pursue any heroic surgeries at this time since it is not a guarantee his pressure issues won't recur. With aggressive amputations, his already tenuous balance would be even more disrupted. At the present time, we are providing conservative care on a monthly basis. He states his right leg gets in the way when transferring. 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 Wound culture was done on 04/22/20. It showed Morganella morganii, Pseudomonas aeroginosa, Streptococcus group F, and Bacteroides fragilis. He has a lot of antibiotic allergies. His only real option is IV antibiotics. Dr. Chester also saw him at the [facility] and felt the wounds were colonized and held off on antibiotics at this time. If his clinical situation were to change, then would re-evaluate him for IV antibiotics at that time. Wound culture from 11/01/20 was positive for MRSA, E. coli, Proteus Mirabilis. He was treated with Augmentin and doxycycline. Today he denies any fever. He states his appetite is ok. Progress of Wound: Left ischial ulcer with a tunnel at 3 o'clock. He has drainage of synovial fluid from the edge of the ulcer. Right ischial/perineal ulcer with thick scar tissue surrounding the ulcer. Left anterior hip ulcer is now healed. Objective Data Objective Data Vital Signs: Vital Signs Temp Pulse Resp BP 96.9 F L 130 H 16 120/80 02/02/22 11:20 02/02/22 11:20 01/09/22 00:22 02/02/22 11:20 Body Mass Index (BMI) 19.8 Charges/Coding Addendum Addendum: 93423 and 1104 x 2 Left ischial ulcer into the muscle Procedures Integumentary 111xxx-113xx: 35015 Manisha subq tissue 20 sq cm/< (right ischial/perineal ulcer) Physical Exam Const alert and oriented x3 General Appearance: cooperative Resp normal respiratory effort Extremity normal capillary refill Skin Wound Narrative: Left ischial ulcer with a tunnel at 3 o'clock. He has drainage of synovial fluid from the edge of the ulcer. Right ischial/perineal ulcer with thick scar tissue surrounding the ulcer. Neuro CN's II-XII intact bilaterally Psych Appearance: grossly normal Debridement Note Debridement Note Wound debrided: ischial ulcer Laterality: Left Wound Grade/Stage: Stage IV Type of Debridement: Excisional debridement Anesthesia Used: 4% Lidocaine Solution Depth: Down to and including healthy tissue, in the subcutaneous layer and to muscle Instrument Used: 5mm curette Tissue Removed: Nonviable tissue and slough, into th muscle Severity: Fat Layer Exposed Amount of bleeding with debridement: Mild Bleeding Controlled with: Pressure Patient tolerated procedure: Patient tolerated procedure well Post-Debridement Measurements and Additional Note: Post-Debridement Measurements/Treatment WC - Nurse 1 - General Ulcer Assessment Start: 02/02/22 11:20 Freq: Status: Active Protocol: WILLIAMS Activity Type Activity Date Activity User E-Sign Co-Sign Detail Recorded Client Recorded Date Recorded By Document 02/02/22 11:20 MENDEZ [id number] 02/02/22 11:24 MENDEZ 02/02/22 11:20 - Today's Visit Information Type of service Follow-up Visit (Physician/CRITICAL POWER TECHNICIAN ) Arrival Mode Wheelchair Patient Identification Verified (Name & Yes ) Height and Weight Body Mass Index (BMI) 19.8 BMI Classification Normal Vital Signs Temperature (97.8 F-99.1 F) 96.9 F L Temperature Source Temporal Pulse Rate (60-100) 130 H Pulse Location Monitor Blood Pressure (90/60-120/80) 120/80 Blood Pressure Mean (mm Hg) 93 Source Monitor Position Sitting Blood Pressure Location Right Arm History Since Last Visit- (Skip if this is Patient's initial visit) Have you changed medications since your No last visit? Any new allergies or adverse reactions No Had a fall/change in ADL's that may No increase risk of falls Signs or symptoms of abuse and/or No neglect since last visit Have you been in the hospital since your No last visit? Has dressing in place as prescribed Yes Has compression in place as prescribed N/A Has offloadiing in place as prescribed N/A Experienced any changes in pain level or No management Pain Scale: 0-10 Numeric Is Patient Pain Free? Yes WC - Nurse 1 - General Ulcer Measurement Start: 02/02/22 11:20 Freq: Status: Active Protocol: Activity Type Activity Date Activity User E-Sign Co-Sign Detail Recorded Client Recorded Date Recorded By Document 02/02/22 11:20 MENDEZ [id number] 02/02/22 11:24 MENDEZ 02/02/22 11:20 Wound Center Nurse 1 9-left hip crease (pre-ulcer) -Current Size (cm) - Length 0.1 -Current Size (cm) - Width 0.1 -Current Size (cm) - Depth 0.1 -Total Square Cm 0.01 -Exudate Amt None Present -Wound Margin Distinct, Outline Attached -Granulation Amt None Present (0 %) -Necrosis Amt None Present (0 %) -Texture (Steffi-wound Skin Appearance) Assessed, Scarring -Moisture (Setffi-wound Skin Appearance) No Abnormality, Assessed -Color (Stfefi-wound Skin Appearance) No Abnormality, Assessed -Temperature (Steffi-wound Skin No Abnormality Appearance) (Pt Warm) -Tenderness on Palpation (Steffi-wound No Skin Appearance) -Ulcer Cleansing Rinsed/ Irrigated with Saline -Foul Odor after Cleansing No -Anesthetic Used 4% Lidocaine Solution #8 L Ischium cluster -Current Size (cm) - Length 5.5 -Current Size (cm) - Width 7 -Current Size (cm) - Depth 3.9 -Total Square Cm 38.5 -Exudate Amt None Present -Wound Margin Distinct, Outline Attached -Granulation Amt Medium (34-66%) -Granulation Quality [place] -Necrosis Amt None Present (0 %) -Texture (Steffi-wound Skin Appearance) Assessed, Scarring -Moisture (Steffi-wound Skin Appearance) No Abnormality, Assessed -Color (Steffi-wound Skin Appearance) No Abnormality, Assessed -Temperature (Steffi-wound Skin No Abnormality Appearance) (Pt Warm) -Tenderness on Palpation (Steffi-wound No Skin Appearance) -Ulcer Cleansing Rinsed/ Irrigated with Saline -Foul Odor after Cleansing No -Anesthetic Used 4% Lidocaine Solution #7 R Ischium cluster -Current Size (cm) - Length 3.3 -Current Size (cm) - Width 0.6 -Current Size (cm) - Depth 0.3 -Total Square Cm 1.98 -Exudate Amt Small -Exudate Type Serosanguineous -Wound Margin Distinct, Outline Attached -Granulation Amt Medium (34-66%) -Granulation Quality [place] -Necrosis Amt None Present (0 %) -Texture (Steffi-wound Skin Appearance) Assessed, Scarring -Moisture (Steffi-wound Skin Appearance) No Abnormality, Assessed -Color (Steffi-wound Skin Appearance) No Abnormality, Assessed -Temperature (Steffi-wound Skin No Abnormality Appearance) (Pt Warm) -Tenderness on Palpation (Steffi-wound No Skin Appearance) -Ulcer Cleansing Rinsed/ Irrigated with Saline -Foul Odor after Cleansing No -Anesthetic Used 4% Lidocaine Solution WC - Nurse 2 - General Ulcer CM Notes Start: 02/02/22 11:20 Freq: Status: Active Protocol: Activity Type Activity Date Activity User E-Sign Co-Sign Detail Recorded Client Recorded Date Recorded By Document 02/02/22 11:50 DEBORAH [id number] 02/02/22 11:57 DEBORAH 02/02/22 11:50 Wound Center Nurse 2 9-left hip crease (pre-ulcer) -Correct Patient No -Correct Side, Site, Position No -Correct Procedure No -Procedure Performed No -Post Debridement (cm) - Length 0 -Post Debridement (cm) - Width 0 -Post Debridement (cm) - Depth 0 -Total Square (Post) (cm) 0 -Area of Debridement (cm) - Length 0 -Area of Debridement (cm) - Width 0 -Total Square (Area) (cm) 0 -Wound/Ulcer Outcome Healed- Epithelialized #8 L Ischium cluster -Time 11:51 -Correct Patient Yes -Correct Side, Site, Position Yes -Correct Procedure Yes -Procedure Performed Yes -Type of Procedure Debridement -Clinical Debridement Muscle / Fascia -Tissue Removed Muscle -Post Debridement (cm) - Length 6.3 -Post Debridement (cm) - Width 8 -Post Debridement (cm) - Depth 0.4 -Total Square (Post) (cm) 50.4 -Area of Debridement (cm) - Length 6.3 -Area of Debridement (cm) - Width 8 -Total Square (Area) (cm) 50.4 -Tunneling Yes -Tunneling Position (O'clock) 3 -Tunneling Distance (cm) 3.2 -Undermining/Tunneling No -Circular Undermining No -Wound/Ulcer Outcome Not Healed -Ulcer Cleansing Rinsed/ Irrigated with Saline -Foul Odor after Cleansing No -Bioengineered Tissue No -Bleeding Controlled with Pressure -Treatment Response Procedure Tolerated Well -Offloading No -Pressure Reduction Wheelchair cushion -Debridement - Subq, 1st 20sq cm No -Debridement - Muscle / Fascia, 1st Yes 20sq cm -Debridement, Muscle/Fascia, ea addt'l 2 20sq cm or part thereof #7 R Ischium cluster -Time 11:52 -Correct Patient Yes -Correct Side, Site, Position Yes -Correct Procedure Yes -Procedure Performed Yes -Type of Procedure Debridement -Clinical Debridement Subcutaneous -Tissue Removed Subcutaneous -Post Debridement (cm) - Length 1.2 -Post Debridement (cm) - Width 2.3 -Post Debridement (cm) - Depth 0.3 -Total Square (Post) (cm) 2.76 -Area of Debridement (cm) - Length 1.2 -Area of Debridement (cm) - Width 2.3 -Total Square (Area) (cm) 2.76 -Tunneling No -Undermining/Tunneling No -Circular Undermining No -Wound/Ulcer Outcome Not Healed -Ulcer Cleansing Rinsed/ Irrigated with Saline -Foul Odor after Cleansing No -Bioengineered Tissue No -Bleeding Controlled with Pressure -Treatment Response Procedure Tolerated Well -Offloading No -Pressure Reduction Wheelchair cushion, Mattress overlay -Debridement - Subq, 1st 20sq cm Yes Pain Scale: 0-10 Numeric Is Patient Pain Free? 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 Yes WC - Visit Discharge Discharge Condition Stable Ambulatory Status Wheelchair Transportation Private Auto Additional Wound Wound debrided: ischial/perineal ulcer Laterality: Right Type of Debridement: Excisional debridement Anesthesia Used: 4% Lidocaine Solution Depth: Down to and including healthy tissue and in the subcutaneous layer Percentage of wound debrided: 100 Instrument Used: 3mm curette Tissue Removed: Non viable tissue and slough Severity: Fat Layer Exposed Amount of bleeding with debridement: Mild Bleeding Controlled with: Pressure Patient tolerated procedure: Patient tolerated procedure well Assessment/Plan Assessment/Plan (1) Pressure sore of left ischium, stage 4: CODE(S): L89.324 - Pressure ulcer of left buttock, stage 4 (2) Right ischial pressure sore, stage 4: CODE(S): L89.314 - Pressure ulcer of right buttock, stage 4 (3) Perineal ulcer: CODE(S): L98.499 - Non-pressure chronic ulcer of skin of other sites with unspecified severity QUALIFIERS: Non-pressure ulcer stage: unspecified non-pressure ulcer stage Qualified Code(s): L98.499 - Non-pressure chronic ulcer of skin of other sites with unspecified severity (4) Chronic osteomyelitis, pelvis: CODE(S): M86.659 - Other chronic osteomyelitis, unspecified thigh (5) Paraplegia at T4 level: CODE(S): G82.20 - Paraplegia, unspecified (6) History of tobacco use: CODE(S): Z87.891 - Personal history of nicotine dependence (7) Severe protein-calorie malnutrition: CODE(S): E43 - Unspecified severe protein-calorie malnutrition PLAN: Wound care - Silver alginate covered with gauze and ABD to both the left ischial ulcer and the right ischial/perineal ulcer. They have moderate amount of drainage. The left ischial tunnel drains clear, synovial fluid from his hip. The new left anterior hip crease ulcer is healed today. Encourage nutritional supplementation with protein to help the healing process. Encouraged the patient to stop smoking as it may have deleterious effects on wound healing. Wound culture from 11/10/21 of left ischial ulcer positive for Proteus mirabilis, Proteus mirabilis #2, MRSA, Corynebacterium striatum, and Bacteroides fragilis group. He completed the Augmentin and doxycycline and a probiotic. Followup 3 weeks.
== END 2022-02-07 23:59 | disposition home or self-care (01) ==
LOC: WC 11:15
PROVIDERS: PCP Internal Medicine; Visit Provider Nurse Practitioner Family
DX: L89.314 Pressure ulcer of right buttock, stage 4 (principal); L89.324 Pressure ulcer of left buttock, stage 4; G82.20 Paraplegia, unspecified; Z89.611 Acquired absence of right leg above knee; L98.499 Non-pressure chronic ulcer of skin of other sites with unspecified severity; M86.68 Other chronic osteomyelitis, other site; L89.229 Pressure ulcer of left hip, unspecified stage; Z87.891 Personal history of nicotine dependence; Z79.899 Other long term (current) drug therapy
CPT/HCPCS: 11042; 11043; 11046

== ENCOUNTER → 2022-02-13 | Outpatient (CLI) | payer MEDICARE, MEDICAID, SELFPAY ==
[2022-02-13 15:35] LABS: Absolute Lymphocyte Count 1.94 X10^3/uL (0.83-4.51); Absolute Neutrophil Count 9.4 X10^3/uL (2.0-7.7); Basophil# 0.07 X10^3/uL; Basophil% 0.5 % (0-1); Eosinophil# 0.28 X10^3/uL; Eosinophils% 2.2 % (0-5); Hematocrit 37.8 % (40-54); Hemoglobin 12.2 g/dL (13.0-16.5); Lymphocyte # 1.94 X10^3/ul (0.83-4.51); Lymphocyte % 15.1 % (19-41); Mean Corp Hgb Conc 32.3 g/dL (32-36); Mean Corpuscular Hgb 29.2 pg (27.0-32.0); Mean Corpuscular Volume 90.4 fL (80-94); Monocyte# 1.04 X10^3/uL; Monocyte% 8.1 % (0-10); NRBC Flagged by Analyzer 0 % (0-5); Neutrophil # 9.38 X10^3/uL (2.7-7.7); Neutrophil % 73.3 % (47-70); Platelet Count 489 K/mm3 (150-450); RBC Distribution Width CV 14.2 % (11.6-14.6); RBC Distribution Width SD 47.7 fl (35.1-43.9); Red Blood Count 4.18 M/mm3 (4.6-6.2); White Blood Count 12.8 K/mm3 (4.4-11.0)
[2022-02-13 16:02] LABS: ALB/GLOB Ratio 0.6 RATIO (0.9-2.4); AST(SGOT) 16 U/L (15-37); Alanine Aminotransfer ALT/SGPT 26 U/L (16-61); Albumin, Serum 2.5 g/dL (3.2-5.0); Alkaline Phosphatase 174 U/L (45-117); Anion Gap 4 (5-15); BUN 25 mg/dL (7-18); BUN/Creat Ratio 44.1 RATIO (10-20); Calcium,Total 8.6 mg/dL (8.5-10.1); Chloride 104 mmol/L (98-107); Creatinine, Serum 0.57 mg/dL (0.70-1.30); EST Glomerular Filtration Rate 159 mL/min (>60); Est Glom Filt Rate - Afr Amer 192 mL/min (>60); Globulin 4.3 g/dL (2.2-4.2); Glucose 95 mg/dL (74-106); LDH 142 U/L (87-241); Protein, Total 6.8 g/dL (6.4-8.2); Sodium Level 138 mmol/L (136-145)
[2022-02-13 16:41] LABS: Erythrocyte Sedimentation Rate 59 mm/hr (0-20)
[2022-02-16 14:09] LABS: Anti-Centromere B Ab <0.2 AI (0.0-0.9); Anti-Chromatin <0.2 AI (0.0-0.9); Anti-Jo <0.2 AI (0.0-0.9); Anti-Scleroderma-70 AB <0.2 AI (0.0-0.9); RNP Ab <0.2 AI (0.0-0.9); SJOGREN'S Anti-SS-A test < 0.2 AI (0.0-0.9); SJOGREN'S Anti-SS-B test < 0.2 AI (0.0-0.9); Smith Ab <0.2 AI (0.0-0.9)
[2022-02-16 15:15] LABS: Anti-dsDNA Ab <1 IU/mL (0-9)
[2022-02-22 10:07] LABS: Albumin 2.7 g/dL (2.9-4.4); Alpha-1-Globulins 0.5 g/dL (0.0-0.4); Alpha-2-Globulins 0.9 g/dL (0.4-1.0); Cytoplasmic Ab (C-ANCA) <1:20 titer (Neg:<1:20); Endomysial Antibody IgA Negative (Negative); Gamma Globulin 1.1 g/dL (0.4-1.8); Immunoglobulin A 117 mg/dL (90-386); Immunoglobulin E 22 IU/mL (6-495); Immunoglobulin G 1157 mg/dL (603-1613); Immunoglobulin M 97 mg/dL (20-172); PROEL- TOTAL PROTEIN 6.1 g/dL (6.0-8.5)
[2022-02-22 11:30] LABS: Perinuclear Ab (P-ANCA) <1:20 titer (Neg:<1:20); t-Transglutaminase IgA <2 U/mL (0-3)
== END | disposition home or self-care (01) ==
LOC: LAB 15:03
PROVIDERS: PCP Internal Medicine; Referring Provider Internal Medicine Gastroenterology; Visit Provider Internal Medicine Gastroenterology
DX: K50.90 Crohn's disease, unspecified, without complications (principal); Z86.14 Personal history of Methicillin resistant Staphylococcus aureus infection
CPT/HCPCS: 36415; 80053; 82784; 82785; 83516; 83615; 84165; 85025; 85652; 86140; 86225; 86235; 86255; 86256; 86334

== ENCOUNTER → 2022-02-17 | Outpatient (CLI) | payer MEDICARE, MEDICAID, SELFPAY ==
[2022-02-20 13:43] LABS: Calprotectin, Stool 23 ug/g (0-120)
== END | disposition home or self-care (01) ==
LOC: LABSPEC 11:16
PROVIDERS: PCP Internal Medicine; Referring Provider Internal Medicine Gastroenterology; Visit Provider Internal Medicine Gastroenterology
DX: K50.90 Crohn's disease, unspecified, without complications (principal)
CPT/HCPCS: 83630; 83993

== ENCOUNTER 2022-02-23 12:19 | Outpatient (RCR) | payer MEDICARE, MEDICAID, SELFPAY ==
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
--- NOTE | 2022-03-26 14:51 | HP.PT.NRP ---
RICCARDO NERI was seen in my office for initial evaluation on 02/23/22. The following Plan of Care was established for this patient: Initial Frequency: 1x/Week Initial Duration: 1 Week This patient was last seen in our office . Pertinent comments regarding their Physical therapy will appear below: Patient has not attended PT in over 30 days- w/c evaluation only- appropriate to be d/c and return to MD for further evaluation as needed. At this point I will be discontinuing this patient from physical therapy. I would be happy to see this patient again in the future if found appropriate by the physician. Thank you! ANTOINETTE CharlesT
== END 2022-02-23 19:00 | disposition home or self-care (01) ==
LOC: PT 12:19
PROVIDERS: PCP Internal Medicine; Referring Provider Nurse Practitioner Family; Visit Provider Nurse Practitioner Family
DX: S78.111D Complete traumatic amputation at level between right hip and knee, subsequent encounter (principal); X58.XXXD Exposure to other specified factors, subsequent encounter
CPT/HCPCS: 97162

== ENCOUNTER 2022-03-02 11:15 | Outpatient (RCR) | payer MEDICARE, MEDICAID, SELFPAY ==
[2022-02-08 00:22] VITALS: BP 120/80; PULSE 130; RESP 16; TEMP 36.1; BMI 19.8
[2022-03-02 11:25] VITALS: BP 91/63; PULSE 117; TEMP 35.8; BMI 19.8
--- NOTE | 2022-03-02 12:39 | PCM.WC.PN ---
History of Present Illness Date of Service: 03/02/22 Chief Complaint: Bilateral ischial pressure sores, Stage IV. History of Wound: Surgery 04/08/20 - 1. Excision bleeding right ischial/perineal pressure sore, Stage IV. 2. Control of prostatic bleeding with electrocautery and Surgicel hemostat. Wound Care - Rinse ulcers with Dakin's solution and then cover Silver alginate dressing covered with gauze then top with ABD daily. Wound culture from 01/20/21 positive for Proteus mirabilis, Cornybacterium minutissium and Bacteroides fragilis. He was referred to ID for antibiotic management, which he was placed on Cefdinir, Doxycycline and Flagyl for 10 days. Patient has long standing bilateral ischial pressure sores, Stage IV, with the left side extending to the femoral head and the right side extending to the perineal area and the prostate. Surgery would entail quite extensive excision with amputations at a tertiary center. Patient does not want to pursue any heroic surgeries at this time since it is not a guarantee his pressure issues won't recur. With aggressive amputations, his already tenuous balance would be even more disrupted. At the present time, we are providing conservative care on a monthly basis. He stated his right leg gets in the way when transferring. He underwent a right AKA on 06/12/20 in [place]. Wound culture was done on 04/22/20. It showed Morganella morganii, Pseudomonas aeroginosa, Streptococcus group F, and Bacteroides fragilis. He has a lot of antibiotic allergies. His only real option is IV antibiotics. Dr. Chester also saw him at the [facility] and felt the wounds were colonized and held off on antibiotics at this time. If his clinical situation were to change, then would re-evaluate him for IV antibiotics at that time. Wound culture from 11/01/20 was positive for MRSA, E. coli, Proteus Mirabilis. He was treated with Augmentin and doxycycline. Today he denies any fever. He states that he is getting chills and sweating on his one side. He states he is having difficulty with his appetite. Progress of Wound: Right and left ischial ulcers are stable. Patient is complaining of chills and sweating on occasions. He states that he is on Doxycycline and Amoxicillin from [facility]. Patient states that the chills and sweating are what he feels when his ulcers are infected. He has also noticed an odor, he is not sure which ulcer the odor is coming from. Wound culture of left ischial ulcer obtained today. Objective Data Objective Data Vital Signs: Vital Signs Temp Pulse Resp BP 96.5 F L 117 H 16 91/63 03/02/22 11:25 03/02/22 11:25 02/08/22 00:22 03/02/22 11:25 Body Mass Index (BMI) 19.8 Charges/Coding Procedures Integumentary 111xxx-113xx: 56822 Manisha musc/fascia 20 sq cm/< Add On Codes: 87971 Manisha musc/fascia add-on (x2) Physical Exam Const alert and oriented x3 General Appearance: cooperative HEENT normocephalic Resp normal respiratory effort Extremity normal capillary refill Skin Wound Narrative: Left ischial ulcer with a tunnel at 3 o'clock. He is not having drainage today from this area. The right ulcer is stable. Right ischial/perineal ulcer with thick scar tissue surrounding the ulcer. Neuro CN's II-XII intact bilaterally Psych Appearance: grossly normal Debridement Note Debridement Note Wound debrided: ishial ulcer Laterality: Left Wound Grade/Stage: Stage IV Type of Debridement: Excisional debridement Anesthesia Used: 4% Lidocaine Solution Depth: to muscle Percentage of wound debrided: 100 Instrument Used: 5mm curette Tissue Removed: Non viable tissue and slough Severity: Fat Layer Exposed Amount of bleeding with debridement: Mild Bleeding Controlled with: Pressure and Compression and gauze Patient tolerated procedure: Patient tolerated procedure well Post-Debridement Measurements and Additional Note: Post-Debridement Measurements/Treatment - Nurse 1 - General Ulcer Assessment Start: 03/02/22 11:24 Freq: Status: Active Protocol: NIKA.LOWDANIELITOT Activity Type Activity Date Activity User E-Sign Co-Sign Detail Recorded Client Recorded Date Recorded By Document 03/02/22 11:25 MENDEZ [id number] 03/02/22 11:28 MENDEZ 03/02/22 11:25 - Today's Visit Information Type of service Follow-up Visit (Physician/LOAN REVIEW OFFICER ) Arrival Mode Wheelchair Patient Identification Verified (Name & Yes ) Height and Weight Body Mass Index (BMI) 19.8 BMI Classification Normal Vital Signs Temperature (97.8 F-99.1 F) 96.5 F L Temperature Source Temporal Pulse Rate (60-100) 117 H Pulse Location Monitor Blood Pressure (90/60-120/80) 91/63 Blood Pressure Mean (mm Hg) 72 Source Monitor Position Sitting Blood Pressure Location Right Arm History Since Last Visit- (Skip if this is Patient's initial visit) Have you changed medications since your No last visit? Any new allergies or adverse reactions No Had a fall/change in ADL's that may No increase risk of falls Signs or symptoms of abuse and/or No neglect since last visit Have you been in the hospital since your No last visit? Has dressing in place as prescribed Yes Has compression in place as prescribed N/A Has offloadiing in place as prescribed N/A Experienced any changes in pain level or No management Pain Scale: 0-10 Numeric Is Patient Pain Free? Yes WC - Nurse 1 - General Ulcer Measurement Start: 03/02/22 11:24 Freq: Status: Active Protocol: Activity Type Activity Date Activity User E-Sign Co-Sign Detail Recorded Client Recorded Date Recorded By Document 03/02/22 11:25 MENDEZ [id number] 03/02/22 11:28 MENDEZ 03/02/22 11:25 Wound Center Nurse 1 #8 L Ischium cluster -Current Size (cm) - Length 5 -Current Size (cm) - Width 2 -Current Size (cm) - Depth 0.2 -Total Square Cm 10 -Exudate Amt Medium -Exudate Type Serosanguineous -Wound Margin Thickened & Rolled Under -Granulation Amt Medium (34-66%) -Granulation Quality [place] -Necrosis Amt Medium (34-66%) -Necrotic Tissue Type Adherent Slough -Structure Exposed Muscle -Texture (Steffi-wound Skin Appearance) Assessed, Scarring -Color (Steffi-wound Skin Appearance) No Abnormality, Assessed -Temperature (Steffi-wound Skin No Abnormality Appearance) (Pt Warm) -Tenderness on Palpation (Steffi-wound No Skin Appearance) -Ulcer Cleansing Rinsed/ Irrigated with Saline #7 R Ischium cluster -Current Size (cm) - Length 7 -Current Size (cm) - Width 6 -Current Size (cm) - Depth 0.2 -Total Square Cm 42 -Undermining/Tunneling Starts (O'clock 1 ) -Undermining/Tunneling Ends (O'clock) 5 -Maximum Distance (cm) 0.2 -Undermining/Tunneling Starts #2 (O' 7 clock) -Undermining/Tunneling Ends #2 (O' 8 clock) -Maximum Distance #2 (cm) 0.3 -Exudate Amt Medium -Exudate Type Serosanguineous -Wound Margin Thickened & Rolled Under -Granulation Amt Medium (34-66%) -Granulation Quality Red -Necrosis Amt Medium (34-66%) -Necrotic Tissue Type Adherent Slough -Texture (Steffi-wound Skin Appearance) Assessed, Scarring -Moisture (Steffi-wound Skin Appearance) No Abnormality, Assessed -Color (Steffi-wound Skin Appearance) No Abnormality, Assessed -Temperature (Steffi-wound Skin No Abnormality Appearance) (Pt Warm) -Tenderness on Palpation (Steffi-wound No Skin Appearance) -Ulcer Cleansing Rinsed/ Irrigated with Saline WC - Nurse 2 - General Ulcer CM Notes Start: 03/02/22 11:24 Freq: Status: Active Protocol: Activity Type Activity Date Activity User E-Sign Co-Sign Detail Recorded Client Recorded Date Recorded By Document 03/02/22 11:44 DEBORAH [id number] 03/02/22 11:53 DEBORAH 03/02/22 11:44 Wound Center Nurse 2 #8 L Ischium cluster -Time 11:44 -Correct Patient Yes -Correct Side, Site, Position Yes -Correct Procedure Yes -Procedure Performed Yes -Type of Procedure Debridement -Clinical Debridement Muscle / Fascia -Tissue Removed Muscle -Post Debridement (cm) - Length 7.8 -Post Debridement (cm) - Width 6.5 -Post Debridement (cm) - Depth 0.2 -Total Square (Post) (cm) 50.70 -Area of Debridement (cm) - Length 7.8 -Area of Debridement (cm) - Width 6.5 -Total Square (Area) (cm) 50.70 -Tunneling Yes -Tunneling Position (O'clock) 3 -Tunneling Distance (cm) 1.6 -Undermining/Tunneling No -Circular Undermining No -Wound/Ulcer Outcome Not Healed -Ulcer Cleansing Rinsed/ Irrigated with Saline -Foul Odor after Cleansing No -Bioengineered Tissue No -Bleeding Controlled with Pressure -Treatment Response Procedure Tolerated Well -Offloading No -Pressure Reduction Wheelchair cushion -Debridement - Muscle / Fascia, 1st Yes 20sq cm -Debridement, Muscle/Fascia, ea addt'l 2 20sq cm or part thereof #7 R Ischium cluster -Time 11:44 -Correct Patient Yes -Correct Side, Site, Position Yes -Correct Procedure Yes -Procedure Performed Yes -Type of Procedure Debridement -Clinical Debridement Muscle / Fascia -Tissue Removed Muscle -Post Debridement (cm) - Length 3.5 -Post Debridement (cm) - Width 1.5 -Post Debridement (cm) - Depth 0.3 -Total Square (Post) (cm) 5.25 -Area of Debridement (cm) - Length 3.5 -Area of Debridement (cm) - Width 1.5 -Total Square (Area) (cm) 5.25 -Tunneling No -Undermining/Tunneling No -Circular Undermining No -Wound/Ulcer Outcome Not Healed -Ulcer Cleansing Rinsed/ Irrigated with Saline -Foul Odor after Cleansing No -Bioengineered Tissue No -Bleeding Controlled with Pressure -Treatment Response Procedure Tolerated Well -Offloading No -Pressure Reduction Wheelchair cushion -Debridement - Muscle / Fascia, 1st No 20sq cm Pain Scale: 0-10 Numeric Is Patient Pain Free? Yes - Nurse 3 - General Ulcer D/C NN Start: 03/02/22 11:24 Freq: Status: Active Protocol: Activity Type Activity Date Activity User E-Sign Co-Sign Detail Recorded Client Recorded Date Recorded By Document 03/02/22 11:58 [facility] [id number] 03/02/22 11:59 [facility] 03/02/22 11:58 Wound Care Nurse 3 #8 L Ischium cluster -Ulcer Cleansing Rinsed/ Irrigated with Saline -Foul Odor after Cleansing No -Primary Dressing Applied Aquacel AG 4x4 -Other Dressing drsg per rn -Primary Dressing Covered/Secured with Secured with Tape,Other -Other Covering abd -Aquacel AG 4x4 1 #7 R Ischium cluster -Ulcer Cleansing Rinsed/ Irrigated with Saline -Foul Odor after Cleansing No -Primary Dressing Applied Aquacel AG 4x4 -Other Dressing drsg per jf rn -Primary Dressing Covered/Secured with Secured with Tape,Other -Other Covering abd -Aquacel AG 4x4 0 Treatment Response Procedure Tolerated Well Pain Scale: 0-10 Numeric Is Patient Pain Free? Yes - Visit Discharge Discharge Condition Stable Ambulatory Status Wheelchair Additional Wound Wound debrided: ischial ulcer Laterality: Right Type of Debridement: Excisional debridement Anesthesia Used: 4% Lidocaine Solution Depth: Down to and including healthy tissue, in the subcutaneous layer and to muscle Percentage of wound debrided: 100 Instrument Used: 3mm curette Tissue Removed: Non viable tissue and slough Severity: Fat Layer Exposed Amount of bleeding with debridement: Mild Bleeding Controlled with: Pressure Patient tolerated procedure: Patient tolerated procedure well Assessment/Plan Assessment/Plan (1) Pressure sore of left ischium, stage 4: CODE(S): L89.324 - Pressure ulcer of left buttock, stage 4 (2) Right ischial pressure sore, stage 4: CODE(S): L89.314 - Pressure ulcer of right buttock, stage 4 (3) Perineal ulcer: CODE(S): L98.499 - Non-pressure chronic ulcer of skin of other sites with unspecified severity QUALIFIERS: Non-pressure ulcer stage: unspecified non-pressure ulcer stage Qualified Code(s): L98.499 - Non-pressure chronic ulcer of skin of other sites with unspecified severity (4) Chronic osteomyelitis, pelvis: CODE(S): M86.659 - Other chronic osteomyelitis, unspecified thigh (5) Paraplegia at T4 level: CODE(S): G82.20 - Paraplegia, unspecified (6) History of tobacco use: CODE(S): Z87.891 - Personal history of nicotine dependence (7) Severe protein-calorie malnutrition: CODE(S): E43 - Unspecified severe protein-calorie malnutrition PLAN: Wound care - Silver alginate covered with gauze and ABD to both the left ischial ulcer and the right ischial/perineal ulcer. They have moderate amount of drainage. The left ischial tunnel drains clear, synovial fluid from his hip. The new left anterior hip crease ulcer remains healed. Encourage nutritional supplementation with protein to help the healing process. Encouraged the patient to stop smoking as it may have deleterious effects on wound healing. Wound culture obtained today of the left ischial ulcer due to patient complaining of chills, sweating and increased odor. Depending on the results of the cultures, it may necessitate the need for treatment with antibiotics. Patient is currently on Doxycycline and Amoxicillin from GI. Followup 4 weeks.
== END 2022-03-10 23:59 | disposition home or self-care (01) ==
LOC: WC 11:15
PROVIDERS: PCP Internal Medicine; Visit Provider Nurse Practitioner Family
DX: L89.314 Pressure ulcer of right buttock, stage 4 (principal); L89.324 Pressure ulcer of left buttock, stage 4; L89.894 Pressure ulcer of other site, stage 4; G82.20 Paraplegia, unspecified; Z89.611 Acquired absence of right leg above knee; L98.499 Non-pressure chronic ulcer of skin of other sites with unspecified severity; M86.659 Other chronic osteomyelitis, unspecified thigh; Z86.14 Personal history of Methicillin resistant Staphylococcus aureus infection; Z87.891 Personal history of nicotine dependence
CPT/HCPCS: 11043; 11046; 87070; 87075; 87077; 87186; 87205

== ENCOUNTER 2022-03-30 11:11 | Outpatient (RCR) | payer MEDICARE, MEDICAID, SELFPAY ==
[2022-03-11 00:37] VITALS: BP 91/63; PULSE 117; RESP 16; TEMP 35.8; BMI 19.8
[2022-03-30 11:20] VITALS: BP 141/76; PULSE 109; TEMP 36.7; BMI 19.8
--- NOTE | 2022-03-30 12:25 | PCM.WC.PN ---
History of Present Illness Date of Service: 03/30/22 Chief Complaint: Bilateral ischial pressure sores, Stage IV. History of Wound: Surgery 04/08/20 - 1. Excision bleeding right ischial/perineal pressure sore, Stage IV. 2. Control of prostatic bleeding with electrocautery and Surgicel hemostat. Wound Care - Rinse ulcers with Dakin's solution and then cover Silver alginate dressing covered with gauze then top with ABD daily. Wound culture from 03/02/22 positive for Pseudomonas aeroginosa, Morganella morganii sp sibonii, and Corynebacterium. Due to his allergies and the the sensitivity of the cultures, patient was referred to ID, who placed him on Augmentin and Cipro, which he currently is on and is tolerating. Wound culture from 01/20/21 positive for Proteus mirabilis, Cornybacterium minutissium and Bacteroides fragilis. He was referred to ID for antibiotic management, which he was placed on Cefdinir, Doxycycline and Flagyl for 10 days. Patient has long standing bilateral ischial pressure sores, Stage IV, with the left side extending to the femoral head and the right side extending to the perineal area and the prostate. Surgery would entail quite extensive excision with amputations at a tertiary center. Patient does not want to pursue any heroic surgeries at this time since it is not a guarantee his pressure issues won't recur. With aggressive amputations, his already tenuous balance would be even more disrupted. At the present time, we are providing conservative care on a monthly basis. He stated his right leg gets in the way when transferring. He underwent a right AKA on 06/12/20 in [place]. Wound culture was done on 04/22/20. It showed Morganella morganii, Pseudomonas aeroginosa, Streptococcus group F, and Bacteroides fragilis. He has a lot of antibiotic allergies. His only real option is IV antibiotics. Dr. Chester also saw him at the [facility] and felt the wounds were colonized and held off on antibiotics at this time. If his clinical situation were to change, then would re-evaluate him for IV antibiotics at that time. Wound culture from 11/01/20 was positive for MRSA, E. coli, Proteus Mirabilis. He was treated with Augmentin and doxycycline. Today he denies any fever. He states that he is getting chills and sweating on his one side. He states he is having difficulty with his appetite. Progress of Wound: Right and left ischial ulcers are stable. He is being treated for positive culture results from his last visit. He states that he is feeling better being on the antibiotics. Objective Data Objective Data Vital Signs: Vital Signs Temp Pulse Resp BP 98.1 F 109 H 16 141/76 H 03/30/22 11:20 03/30/22 11:20 03/11/22 00:37 03/30/22 11:20 Body Mass Index (BMI) 19.8 Charges/Coding Procedures Integumentary 111xxx-113xx: 41096 Manisha musc/fascia 20 sq cm/< Add On Codes: 61379 Manisha musc/fascia add-on (x3) Physical Exam Const alert and oriented x3 General Appearance: cooperative HEENT normocephalic Resp normal respiratory effort Extremity normal capillary refill Skin Wound Narrative: Left ischial ulcer with a tunnel at 3 o'clock, there is no drainage at this time. Right ischial/perineal ulcer is stable with thick scar tissue surrounding the ulcer. Neuro CN's II-XII intact bilaterally Psych Appearance: grossly normal Debridement Note Debridement Note Wound debrided: ishial ulcer Laterality: Left Wound Grade/Stage: Stage IV Type of Debridement: Excisional debridement Anesthesia Used: 4% Lidocaine Solution Depth: Down to and including healthy tissue, in the subcutaneous layer and to muscle Percentage of wound debrided: 100 Instrument Used: 5mm curette Tissue Removed: Non viable tissue and slough Severity: Fat Layer Exposed Amount of bleeding with debridement: Mild Bleeding Controlled with: Pressure and Compression and gauze Patient tolerated procedure: Patient tolerated procedure well Post-Debridement Measurements and Additional Note: Post-Debridement Measurements/Treatment - Nurse 1 - General Ulcer Assessment Start: 03/30/22 11:20 Freq: Status: Active Protocol: NIKA.BONNY Activity Type Activity Date Activity User E-sign Co-sign Detail Recorded Client Recorded Date Recorded By Document 03/30/22 11:20 MENDEZ [id number] 03/30/22 11:25 MENDEZ 03/30/22 11:20 - Today's Visit Information Type of service Follow-up Visit (Physician/BUSINESS OBJECTS ) Arrival Mode Wheelchair Patient Identification Verified (Name & Yes ) Height and Weight Body Mass Index (BMI) 19.8 BMI Classification Normal Vital Signs Temperature (97.8 F-99.1 F) 98.1 F Temperature Source Temporal Pulse Rate (60-100) 109 H Pulse Location Monitor Blood Pressure (90/60-120/80) 141/76 H Blood Pressure Mean (mm Hg) 97 Source Monitor Position Sitting Blood Pressure Location Left Arm History Since Last Visit- (Skip if this is Patient's initial visit) Have you changed medications since your No last visit? Any new allergies or adverse reactions No Had a fall/change in ADL's that may No increase risk of falls Signs or symptoms of abuse and/or No neglect since last visit Have you been in the hospital since your No last visit? Has dressing in place as prescribed Yes Has compression in place as prescribed N/A Has offloadiing in place as prescribed N/A Experienced any changes in pain level or No management Pain Scale: 0-10 Numeric Is Patient Pain Free? Yes WC - Nurse 1 - General Ulcer Measurement Start: 03/30/22 11:20 Freq: Status: Active Protocol: Activity Type Activity Date Activity User E-sign Co-sign Detail Recorded Client Recorded Date Recorded By Document 03/30/22 11:20 [id number] 03/30/22 11:25 KR 03/30/22 11:20 Wound Center Nurse 1 #8 L Ischium cluster -Current Size (cm) - Length 6.3 -Current Size (cm) - Width 1.1 -Current Size (cm) - Depth 0.2 -Total Square Cm 6.93 -Exudate Amt Medium -Exudate Type Serosanguineous -Wound Margin Thickened & Rolled Under -Moisture (Steffi-wound Skin Appearance) No Abnormality, Assessed -Color (Steffi-wound Skin Appearance) No Abnormality, Assessed -Temperature (Steffi-wound Skin No Abnormality Appearance) (Pt Warm) -Tenderness on Palpation (Steffi-wound No Skin Appearance) -Ulcer Cleansing Rinsed/ Irrigated with Saline -Foul Odor after Cleansing No -Anesthetic Used 4% Lidocaine Solution #7 R Ischium cluster -Current Size (cm) - Length 3.6 -Current Size (cm) - Width 0.3 -Current Size (cm) - Depth 0.2 -Total Square Cm 1.08 -Exudate Amt Medium -Exudate Type Serosanguineous -Wound Margin Thickened & Rolled Under -Structure Exposed Bone -Texture (Steffi-wound Skin Appearance) Assessed, Scarring -Moisture (Steffi-wound Skin Appearance) No Abnormality, Assessed -Color (Steffi-wound Skin Appearance) No Abnormality, Assessed -Temperature (Steffi-wound Skin No Abnormality Appearance) (Pt Warm) -Tenderness on Palpation (Steffi-wound No Skin Appearance) -Ulcer Cleansing Rinsed/ Irrigated with Saline -Foul Odor after Cleansing No -Anesthetic Used 4% Lidocaine Solution WC - Nurse 2 - General Ulcer CM Notes Start: 03/30/22 11:20 Freq: Status: Active Protocol: Activity Type Activity Date Activity User E-sign Co-sign Detail Recorded Client Recorded Date Recorded By Document 03/30/22 11:44 DEBORAH [id number] 03/30/22 11:51 DEBORAH 03/30/22 11:44 Wound Center Nurse 2 #8 L Ischium cluster -Time 11:45 -Correct Patient Yes -Correct Side, Site, Position Yes -Correct Procedure Yes -Procedure Performed Yes -Type of Procedure Debridement -Clinical Debridement Muscle / Fascia -Tissue Removed Muscle -Post Debridement (cm) - Length 7.5 -Post Debridement (cm) - Width 7 -Post Debridement (cm) - Depth 0.5 -Total Square (Post) (cm) 52.5 -Area of Debridement (cm) - Length 7.5 -Area of Debridement (cm) - Width 7 -Total Square (Area) (cm) 52.5 -Tunneling No -Undermining/Tunneling No -Circular Undermining No -Wound/Ulcer Outcome Not Healed -Ulcer Cleansing Rinsed/ Irrigated with Saline -Foul Odor after Cleansing No -Bioengineered Tissue No -Bleeding Controlled with Pressure -Treatment Response Procedure Tolerated Well -Offloading No -Pressure Reduction Wheelchair cushion -Debridement - Muscle / Fascia, 1st Yes 20sq cm -Debridement, Muscle/Fascia, ea addt'l 3 20sq cm or part thereof #7 R Ischium cluster -Time 11:45 -Correct Patient Yes -Correct Side, Site, Position Yes -Correct Procedure Yes -Procedure Performed Yes -Type of Procedure Debridement -Clinical Debridement Muscle / Fascia -Tissue Removed Muscle -Post Debridement (cm) - Length 4.6 -Post Debridement (cm) - Width 2 -Post Debridement (cm) - Depth 0.5 -Total Square (Post) (cm) 9.2 -Area of Debridement (cm) - Length 4.6 -Area of Debridement (cm) - Width 2 -Total Square (Area) (cm) 9.2 -Tunneling No -Undermining/Tunneling No -Circular Undermining No -Bioengineered Tissue No -Bleeding Controlled with Pressure -Treatment Response Procedure Tolerated Well -Offloading No -Pressure Reduction Wheelchair cushion -Debridement - Muscle / Fascia, 1st No 20sq cm Pain Scale: 0-10 Numeric Is Patient Pain Free? Yes - Nurse 3 - General Ulcer D/C NN Start: 03/30/22 11:20 Freq: Status: Active Protocol: Activity Type Activity Date Activity User E-sign Co-sign Detail Recorded Client Recorded Date Recorded By Document 03/30/22 12:00 [id number] 03/30/22 12:01 MENDEZ 03/30/22 12:00 Wound Care Nurse 3 #8 L Ischium cluster -Ulcer Cleansing Rinsed/ Irrigated with Saline -Primary Dressing Applied Aquacel AG 4x4 -Other Dressing Abd pads -Primary Dressing Covered/Secured with Secured with Tape -Aquacel AG 4x4 1 #7 R Ischium cluster -Other Dressing abd pads -Primary Dressing Covered/Secured with Secured with Tape Pain Scale: 0-10 Numeric Is Patient Pain Free? Yes WC - Visit Discharge Discharge Condition Stable Ambulatory Status Wheelchair Transportation Private Auto Additional Wound Wound debrided: ischial ulcer Laterality: Right Type of Debridement: Excisional debridement Anesthesia Used: 4% Lidocaine Solution Depth: Down to and including healthy tissue, in the subcutaneous layer and to muscle Percentage of wound debrided: 100 Instrument Used: 3mm curette Tissue Removed: Non viable tissue and slough Severity: Fat Layer Exposed Amount of bleeding with debridement: Mild Bleeding Controlled with: Pressure Patient tolerated procedure: Patient tolerated procedure well Assessment/Plan Assessment/Plan (1) Pressure sore of left ischium, stage 4: CODE(S): L89.324 - Pressure ulcer of left buttock, stage 4 (2) Right ischial pressure sore, stage 4: CODE(S): L89.314 - Pressure ulcer of right buttock, stage 4 (3) Perineal ulcer: CODE(S): L98.499 - Non-pressure chronic ulcer of skin of other sites with unspecified severity QUALIFIERS: Non-pressure ulcer stage: unspecified non-pressure ulcer stage Qualified Code(s): L98.499 - Non-pressure chronic ulcer of skin of other sites with unspecified severity (4) Chronic osteomyelitis, pelvis: CODE(S): M86.659 - Other chronic osteomyelitis, unspecified thigh (5) Paraplegia at T4 level: CODE(S): G82.20 - Paraplegia, unspecified (6) History of tobacco use: CODE(S): Z87.891 - Personal history of nicotine dependence (7) Severe protein-calorie malnutrition: CODE(S): E43 - Unspecified severe protein-calorie malnutrition PLAN: Plan Wound care - Silver alginate covered with gauze and ABD to both the left ischial ulcer and the right ischial/perineal ulcer. They have moderate amount of drainage. The left ischial tunnel drains clear, synovial fluid from his hip. The new left anterior hip crease ulcer remains healed. Encourage nutritional supplementation with protein to help the healing process. Encouraged the patient to stop smoking as it may have deleterious effects on wound healing. Wound culture from 03/02/22 positive for Pseudomonas aeroginosa, Morganella morganii sp sibonii, and Corynebacterium. Due to his allergies and the the sensitivity of the cultures, patient was referred to ID, who placed him on Augmentin and Cipro, which he currently is on and is tolerating. He follows up with ID next week, they have ordered further testing. Followup 4 weeks.
== END 2022-04-09 23:59 | disposition home or self-care (01) ==
LOC: WC 11:11
PROVIDERS: PCP Internal Medicine; Visit Provider Nurse Practitioner Family
DX: L89.314 Pressure ulcer of right buttock, stage 4 (principal); L89.324 Pressure ulcer of left buttock, stage 4; G82.20 Paraplegia, unspecified; L98.499 Non-pressure chronic ulcer of skin of other sites with unspecified severity; M86.659 Other chronic osteomyelitis, unspecified thigh; Z87.891 Personal history of nicotine dependence
CPT/HCPCS: 11043; 11046

== ENCOUNTER → 2022-04-08 | Outpatient (CLI) | payer MEDICARE, MEDICAID, SELFPAY ==
--- NOTE | 2022-04-08 14:00 | CT_ITS ---
STUDY: CT ABDOMEN AND PELVIS WITH CONTRAST REASON FOR EXAM: Male, 56 years old. INFECTED DECUBITUS ULCER RADIATION DOSAGE (If Supplied By Facility): CTDIvol = ( 9.29 ) mGy, DLP = ( 729.13 ) mGycm TECHNIQUE: Transaxial images were obtained from the dome of the diaphragm to the symphysis pubis without oral contrast. IV 100mL Isovue-300 was administered. Sagittal and coronal images were reconstructed. Individualized dose optimization techniques were used for this CT. COMPARISON: Comparison is made with prior study 08/19/2021. FINDINGS: The visualized lung bases are unremarkable. The visualized portions of the heart are within normal limits. Normal liver. Normal gallbladder and extrahepatic biliary system. Normal spleen. Normal pancreas. Normal bilateral adrenal glands. Normal right kidney. Normal left kidney. Normal visualized stomach. Normal small intestine. Normal colon. The appendix is visualized and appears normal. Normal abdominal aorta. Normal inferior vena cava. Normal retroperitoneum. 16 again, there is diffuse bladder wall thickening. I suspect a 2.8 cm x 3.2 cm bladder diverticulum on the right side at the base of the bladder. Once again, there is diffuse soft tissue thickening of the perineum. This is unchanged. There is evidence of a bilateral scrotal hydroceles. Marked degree of levoscoliosis of the lumbar spine. Moderate degree of bilateral degenerative changes of both hip joints worse on the left side with erosive changes of the left femoral head and soft tissue density within the joint space. The patient has a history of spina bifida. CT/Abdomen/Pelvis WITH Contrast IMPRESSION: Stable examination. Electronically Signed: Jay Leigh MD at 15:28 EDT ,
== END | disposition home or self-care (01) ==
LOC: CT 14:03
PROVIDERS: PCP Internal Medicine; Referring Provider Internal Medicine Infectious Disease; Visit Provider Internal Medicine Infectious Disease
DX: L89.90 Pressure ulcer of unspecified site, unspecified stage (principal)
CPT/HCPCS: 74177; Q9967

== ENCOUNTER 2022-04-27 10:47 | Outpatient (RCR) | payer MEDICARE, MEDICAID, SELFPAY ==
[2022-04-10 00:24] VITALS: BP 141/76; PULSE 109; RESP 16; TEMP 36.7; BMI 19.8
[2022-04-27 11:00] VITALS: BP 87/44; PULSE 135; TEMP 36.4; BMI 19.8
--- NOTE | 2022-04-27 12:12 | PN.PCM_ITS ---
History of Present Illness Date of Service: 04/27/22 Chief Complaint: Bilateral ischial pressure sores, Stage IV. History of Wound: Surgery 04/08/20 - 1. Excision bleeding right ischial/perineal pressure sore, Stage IV. 2. Control of prostatic bleeding with electrocautery and Surgicel hemostat. Wound Care - Rinse ulcers with Dakin's solution and then cover Silver alginate dressing covered with gauze then top with ABD daily. Wound culture from 03/02/22 positive for Pseudomonas aeroginosa, Morganella morganii sp sibonii, and Corynebacterium. Due to his allergies and the the sensitivity of the cultures, patient was referred to ID, who placed him on Augmentin and Cipro, which he currently is on and is tolerating. Wound culture from 01/20/21 positive for Proteus mirabilis, Cornybacterium minutissium and Bacteroides fragilis. He was referred to ID for antibiotic management, which he was placed on Cefdinir, Doxycycline and Flagyl for 10 days. Patient has long standing bilateral ischial pressure sores, Stage IV, with the left side extending to the femoral head and the right side extending to the perineal area and the prostate. Surgery would entail quite extensive excision with amputations at a tertiary center. Patient does not want to pursue any heroic surgeries at this time since it is not a guarantee his pressure issues won't recur. With aggressive amputations, his already tenuous balance would be even more disrupted. At the present time, we are providing conservative care on a monthly basis. He stated his right leg gets in the way when transferring. He underwent a right AKA on 06/12/20 in [place]. Wound culture was done on 04/22/20. It showed Morganella morganii, Pseudomonas aeroginosa, Streptococcus group F, and Bacteroides fragilis. He has a lot of antibiotic allergies. His only real option is IV antibiotics. Dr. Chester also saw him at the [facility] and felt the wounds were colonized and held off on antibiotics at this time. If his clinical situation were to change, then would re-evaluate him for IV antibiotics at that time. Wound culture from 11/01/20 was positive for MRSA, E. coli, Proteus Mirabilis. He was treated with Augmentin and doxycycline. Today he denies any fever. He states that he is getting chills and sweating on his one side. He states he is having difficulty with his appetite. Progress of Wound: Left ischial ulcer cluster is stable. Right perianal ulcer has thickened scar tissue surrounding the ulcer. Objective Data Objective Data Vital Signs: Vital Signs Temp Pulse Resp BP 97.5 F L 135 H 16 87/44 L 04/27/22 11:00 04/27/22 11:00 04/10/22 00:24 04/27/22 11:00 Body Mass Index (BMI) 19.8 Charges/Coding Procedures Integumentary 111xxx-113xx: 78698 Manisha musc/fascia 20 sq cm/< Add On Codes: 11488 Manisha musc/fascia add-on (x2) Physical Exam Const alert and oriented x3 General Appearance: cooperative HEENT normocephalic Resp normal respiratory effort Extremity normal capillary refill Skin Wound Narrative: Left ischial ulcer cluster with a tunnel at 3 o'clock, today there is clear infante drainage from this area when he shifts, most likely synovial fluid from his hip. Right ischial/perineal ulcer is stable with thick scar tissue surrounding the ulcer, the center of the ulcer is beefy pink. Neuro CN's II-XII intact bilaterally Psych Appearance: grossly normal Debridement Note Debridement Note Wound debrided: ishial ulcer Laterality: Left Wound Grade/Stage: Stage IV Type of Debridement: Excisional debridement Anesthesia Used: 4% Lidocaine Solution Depth: Down to and including healthy tissue, in the subcutaneous layer and to muscle Percentage of wound debrided: 100 Instrument Used: 5mm curette Tissue Removed: Non viable tissue and slough, into the muscle Severity: Fat Layer Exposed Amount of bleeding with debridement: Mild Bleeding Controlled with: Pressure, Compression and gauze and Silver Nitrate Patient tolerated procedure: Patient tolerated procedure well Debridement Free Text: Silver nitrate used on the one area at 6 o'clock that was oozing after 10 minutes of pressure being held. The silver nitrate helped stop the oozing. Post-Debridement Measurements and Additional Note: Post-Debridement Measurements/Treatment WC - Nurse 1 - General Ulcer Assessment Start: 04/27/22 10:59 Freq: Status: Active Protocol: WILLIAMS Activity Type Activity Date Activity User E-sign Co-sign Detail Recorded Client Recorded Date Recorded By Document 04/27/22 11:00 MENDEZ [id number] 04/27/22 11:06 MENDEZ 04/27/22 11:00 - Today's Visit Information Type of service Follow-up Visit (Physician/PROCESS EXCELLENCE MANAGER ) Arrival Mode Wheelchair Patient Identification Verified (Name & Yes ) Height and Weight Body Mass Index (BMI) 19.8 BMI Classification Normal Vital Signs Temperature (97.8 F-99.1 F) 97.5 F L Temperature Source Temporal Pulse Rate (60-100) 135 H Pulse Location Monitor Blood Pressure (90/60-120/80) 87/44 L Blood Pressure Mean (mm Hg) 58 Source Monitor Position Sitting Blood Pressure Location Right Arm History Since Last Visit- (Skip if this is Patient's initial visit) Have you changed medications since your No last visit? Any new allergies or adverse reactions No Had a fall/change in ADL's that may No increase risk of falls Signs or symptoms of abuse and/or No neglect since last visit Have you been in the hospital since your No last visit? Has dressing in place as prescribed Yes Has offloadiing in place as prescribed N/A Experienced any changes in pain level or No management Left Footwear Regular Shoe Right Footwear Regular Shoe Pain Scale: 0-10 Numeric Is Patient Pain Free? Yes - Nurse 1 - General Ulcer Measurement Start: 04/27/22 10:59 Freq: Status: Active Protocol: Activity Type Activity Date Activity User E-sign Co-sign Detail Recorded Client Recorded Date Recorded By Document 04/27/22 11:00 MENDEZ [id number] 04/27/22 11:06 MENDEZ 04/27/22 11:00 Wound Center Nurse 1 #8 L Ischium cluster -Current Size (cm) - Length 6 -Current Size (cm) - Width 0.2 -Current Size (cm) - Depth 3 -Total Square Cm 1.2 -Exudate Amt Small -Exudate Type Serosanguineous -Wound Margin Thickened & Rolled Under -Granulation Amt Large (67-100%) -Granulation Quality [place] -Necrosis Amt Small (1-33%) -Necrotic Tissue Type Adherent Slough -Texture (Steffi-wound Skin Appearance) Assessed, Scarring -Moisture (Steffi-wound Skin Appearance) No Abnormality, Assessed -Color (Steffi-wound Skin Appearance) No Abnormality, Assessed -Temperature (Steffi-wound Skin No Abnormality Appearance) (Pt Warm) -Tenderness on Palpation (Steffi-wound No Skin Appearance) -Ulcer Cleansing Rinsed/ Irrigated with Saline -Foul Odor after Cleansing No #7 R Ischium cluster -Current Size (cm) - Length 4 -Current Size (cm) - Width 1 -Current Size (cm) - Depth 0.1 -Total Square Cm 4 -Exudate Amt Small -Exudate Type Serosanguineous -Wound Margin Thickened -Granulation Amt Large (67-100%) -Granulation Quality [place] -Necrosis Amt Small (1-33%) -Necrotic Tissue Type Adherent Slough -Texture (Steffi-wound Skin Appearance) Assessed, Scarring -Moisture (Steffi-wound Skin Appearance) No Abnormality, Assessed -Color (Steffi-wound Skin Appearance) No Abnormality, Assessed -Temperature (Steffi-wound Skin No Abnormality Appearance) (Pt Warm) -Tenderness on Palpation (Steffi-wound No Skin Appearance) -Ulcer Cleansing Rinsed/ Irrigated with Saline WC - Nurse 2 - General Ulcer CM Notes Start: 04/27/22 10:59 Freq: Status: Active Protocol: Activity Type Activity Date Activity User E-sign Co-sign Detail Recorded Client Recorded Date Recorded By Document 04/27/22 11:36 [id number] 04/27/22 11:43 04/27/22 11:36 Wound Center Nurse 2 #8 L Ischium cluster -Time 11:36 -Correct Patient Yes -Correct Side, Site, Position Yes -Correct Procedure Yes -Procedure Performed Yes -Type of Procedure Debridement -Clinical Debridement Muscle / Fascia -Tissue Removed Muscle -Post Debridement (cm) - Length 5.5 -Post Debridement (cm) - Width 7 -Post Debridement (cm) - Depth 1.4 -Total Square (Post) (cm) 38.5 -Area of Debridement (cm) - Length 5.5 -Area of Debridement (cm) - Width 7 -Total Square (Area) (cm) 38.5 -Tunneling No -Undermining/Tunneling No -Circular Undermining No -Wound/Ulcer Outcome Not Healed -Ulcer Cleansing Rinsed/ Irrigated with Saline -Foul Odor after Cleansing No -Bioengineered Tissue No -Bleeding Controlled with Pressure -Treatment Response Procedure Tolerated Well -Offloading No -Pressure Reduction Wheelchair cushion -Debridement - Muscle / Fascia, 1st Yes 20sq cm -Debridement, Muscle/Fascia, ea addt'l 2 20sq cm or part thereof #7 R Ischium cluster -Time 11:36 -Correct Patient Yes -Correct Side, Site, Position Yes -Correct Procedure Yes -Procedure Performed Yes -Type of Procedure Debridement -Clinical Debridement Muscle / Fascia -Tissue Removed Muscle -Post Debridement (cm) - Length 1.3 -Post Debridement (cm) - Width 1.5 -Post Debridement (cm) - Depth 0.3 -Total Square (Post) (cm) 1.95 -Area of Debridement (cm) - Length 1.3 -Area of Debridement (cm) - Width 1.5 -Total Square (Area) (cm) 1.95 -Tunneling No -Undermining/Tunneling No -Circular Undermining No -Wound/Ulcer Outcome Not Healed -Ulcer Cleansing Rinsed/ Irrigated with Saline -Foul Odor after Cleansing No -Bioengineered Tissue No -Bleeding Controlled with Pressure -Treatment Response Procedure Tolerated Well -Offloading No -Debridement - Muscle / Fascia, 1st No 20sq cm Pain Scale: 0-10 Numeric Is Patient Pain Free? Yes - Nurse 3 - General Ulcer D/C NN Start: 04/27/22 10:59 Freq: Status: Active Protocol: Activity Type Activity Date Activity User E-sign Co-sign Detail Recorded Client Recorded Date Recorded By Document 04/27/22 11:50 DL [id number] 04/27/22 11:52 DL 04/27/22 11:50 Wound Care Nurse 3 #8 L Ischium cluster -Ulcer Cleansing Rinsed/ Irrigated with Saline -Foul Odor after Cleansing No -Negative Pressure Wound Therapy N/A -Primary Dressing Applied Aquacel AG 4x4 -Other Dressing ABD -Primary Dressing Covered/Secured with Secured with Tape -Aquacel AG 4x4 0 #7 R Ischium cluster -Ulcer Cleansing Rinsed/ Irrigated with Saline -Foul Odor after Cleansing No -Negative Pressure Wound Therapy N/A -Primary Dressing Applied Aquacel AG 4x4 -Other Dressing ABD -Primary Dressing Covered/Secured with Secured with Tape -Aquacel AG 4x4 0 Pain Scale: 0-10 Numeric Is Patient Pain Free? Yes WC - Visit Discharge Discharge Condition Stable Ambulatory Status Wheelchair Medication Reconcilliation completed & Yes provided to patient/care provider Clinical Summary of Care Provided Yes Additional Wound Wound debrided: perianal ulcer Laterality: Right Wound Grade/Stage: Stage IV Type of Debridement: Excisional debridement Anesthesia Used: 4% Lidocaine Solution Depth: Down to and including healthy tissue, in the subcutaneous layer and to muscle Percentage of wound debrided: 100 Instrument Used: 3mm curette Tissue Removed: Non viable tissue and slough into the muscle Severity: Fat Layer Exposed Amount of bleeding with debridement: Mild Bleeding Controlled with: Pressure and Compression and gauze Patient tolerated procedure: Patient tolerated procedure well Assessment/Plan Assessment/Plan (1) Pressure sore of left ischium, stage 4: CODE(S): L89.324 - Pressure ulcer of left buttock, stage 4 (2) Right ischial pressure sore, stage 4: CODE(S): L89.314 - Pressure ulcer of right buttock, stage 4 (3) Perineal ulcer: CODE(S): L98.499 - Non-pressure chronic ulcer of skin of other sites with unspecified severity QUALIFIERS: Non-pressure ulcer stage: unspecified non-pressure ulcer stage Qualified Code(s): L98.499 - Non-pressure chronic ulcer of skin of other sites with unspecified severity (4) Chronic osteomyelitis, pelvis: CODE(S): M86.659 - Other chronic osteomyelitis, unspecified thigh (5) Paraplegia at T4 level: CODE(S): G82.20 - Paraplegia, unspecified (6) History of tobacco use: CODE(S): Z87.891 - Personal history of nicotine dependence (7) Severe protein-calorie malnutrition: CODE(S): E43 - Unspecified severe protein-calorie malnutrition PLAN: Plan Wound care - Silver alginate covered with gauze and ABD to both the left ischial ulcer and the right ischial/perineal ulcer. They have moderate amount of drainage. The left ischial tunnel drains clear, synovial fluid from his hip. The new left anterior hip crease ulcer remains healed. Encourage nutritional supplementation with protein to help the healing process. Encouraged the patient to stop smoking as it may have deleterious effects on wound healing. Wound culture from 03/02/22 positive for Pseudomonas aeroginosa, Morganella morganii sp sibonii, and Corynebacterium. Due to his allergies and the the sensitivity of the cultures, patient was referred to ID, who placed him on Augmentin and Cipro, which he completed. CT on 04/08/22 of abdomen/pelvis showed: Diffuse soft tissue thickening of the perineum.? This is unchanged.? There is evidence of a bilateral scrotal hydroceles.? Marked degree of levoscoliosis of the lumbar spine.? Moderate degree of bilateral degenerative changes of both hip joints worse on the left side with erosive changes of the left femoral head and soft tissue density within the joint space.? The patient has a history of spina bifida. He states he saw Dr. Chester recently. Followup 4 weeks.
== END 2022-05-10 23:59 | disposition home or self-care (01) ==
LOC: WC 10:47
PROVIDERS: PCP Internal Medicine; Visit Provider Nurse Practitioner Family
DX: L89.314 Pressure ulcer of right buttock, stage 4 (principal); L89.324 Pressure ulcer of left buttock, stage 4; G82.20 Paraplegia, unspecified; L98.499 Non-pressure chronic ulcer of skin of other sites with unspecified severity; M86.68 Other chronic osteomyelitis, other site; Z87.891 Personal history of nicotine dependence; Z86.14 Personal history of Methicillin resistant Staphylococcus aureus infection
CPT/HCPCS: 11043; 11046

== ENCOUNTER 2022-06-05 11:17 | Day surgery (SDC) | payer MEDICARE, MEDICAID, SELFPAY ==
[2022-06-05] MEDS: Lactated Ringers 1,000 ML 15 ML IV (11:25)
[2022-06-05 11:58] VITALS: BP 162/82; PULSE 72; RESP 18; TEMP 36.6; O2SAT 99; BMI 12.2
--- NOTE | 2022-06-05 13:50 | PCM.HP.STD ---
HPI - General General Date of Admission: 06/05/22 HPI Narrative RICCARDO NERI, is a 56 M who presents for dilation of urethral stricture we will diagnostic cystoscopy and placement of Payne PFSH Medical History (Updated 06/03/22 @ 13:36 by Annalisa Birmingham) Above-knee amputation of right lower extremity Alcohol use Anxiety Bacteremia Bleeding from left hip wound Cardiology follow-up encounter Chronic osteomyelitis, pelvis Crohn's disease Difficulty transferring location Former smoker Gastric reflux Heart murmur Hematuria History of back problems History of blood clots History of blood transfusion History of echocardiogram History of fracture History of left below knee amputation History of MRSA infection History of osteomyelitis History of tobacco use History of UTI Incomplete right bundle branch block Kidney calculi Left ischial pressure sore left ischial pressure sore, stage IV Marijuana use MRSA (methicillin resistant Staphylococcus aureus) infection Nonrheumatic mitral (valve) insufficiency Nonrheumatic mitral (valve) prolapse Open wound Paraplegia at T4 level Perineal ulcer Phantom pain Prostatic hemorrhage Proteus infection Pseudomonas aeruginosa infection Rectal abnormality Recurrent infections Right ischial pressure sore, stage 4 Scoliosis Severe protein-calorie malnutrition Stomach ulcer Urinary tract infection Uses wheelchair Wears glasses Weight loss Home Medications pantoprazole 40 mg tablet,delayed release (Protonix) 40 mg PO DAILY 06/03/22 [History Last Taken Unknown] Allergy/AdvReac Type Severity Reaction Status Date / Time cephalexin monohydrate Allergy Itching Verified 06/05/22 11:58 [From Keflex] latex Allergy ONLY IF Verified 06/05/22 11:58 INDWELLING CATHETER nitrofurantoin Allergy Hives Verified 06/05/22 11:58 [From Macrobid] nitrofurantoin Allergy Hives Verified 06/05/22 11:58 macrocrystalline [From Macrobid] Quinolones Allergy Hives Verified 06/05/22 11:58 sulfamethoxazole Allergy Hives Verified 06/05/22 11:58 Family History Unknown Breast cancer Surgical History (Updated 06/03/22 @ 13:36 by Annalisa Birmingham) H/O ureteroileostomy History of left below knee amputation Hx of above knee amputation Hx of colonoscopy Social History Smoking Status: Former smoker alcohol intake: current alcohol intake frequency: 3 or more drinks per day Alcohol type: beer substance use type: marijuana Vital Signs Vital Signs Vital Signs: 06/05/22 11:58 06/05/22 11:58 Temperature 97.9 F Temperature Source Temporal Pulse Rate 72 Respiratory Rate 18 Respiratory Pattern Normal Blood Pressure 162/82 H Blood Pressure Mean 108 Blood Pressure Source Monitor Blood Pressure Position Semi-Fowlers Blood Pressure Location Left Arm Pulse Ox 99 Oxygen Delivery Method Room Air Weight Weight: 38.734 kg Body Mass Index (BMI) 12.2
--- NOTE | 2022-06-05 13:51 | PCM.DC ---
Discharge Instructions Diet Discharge Diet: No restrictions Activity Discharge Activity: Return to Normal Activity Dressing / Incision Catheter: [place] to leg bag and [place] to large bag Drain: [place] Follow Up Care Please Follow Up With: Juanito Hughes MD When: 2 weeks Test Results: Test results from this visit will be discussed in further detail at your follow-up appointment, if applicable. Discharge Plan Admission Primary Reason for Your Visit: place a alcaraz Attending Provider: Juanito Hughes Primary Care Provider: Rayo Jose Discharge Orders/Prescriptions Prescriptions: No Action pantoprazole [Protonix] 40 mg tablet,delayed release (DR/EC) 40 mg PO DAILY Rx Instructions: Take two times a day for eight weeks then once a day for eight weeks. Referrals / Follow Up: Rayo Jose MD [Primary Care Provider] - Juanito Hughes MD [Med Staff - Active Staff] - Disposition Disposition (needs filled in before D/C Order can be placed): Home, Self Care
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
[2022-06-05 14:34] VITALS: BP 115/68; BP 162/82; PULSE 100; RESP 18; TEMP 36.8; O2SAT 100
[2022-06-05 14:45] VITALS: BP 132/78; BP 162/82; PULSE 81; RESP 16; O2SAT 100
[2022-06-05 14:49] VITALS: BP 119/70; BP 162/82; PULSE 74; RESP 16; TEMP 36.3; O2SAT 100
[2022-06-05 15:22] VITALS: BP 118/70; BP 162/82; PULSE 81; RESP 16; TEMP 36.6; O2SAT 98
== END 2022-06-05 15:23 | disposition home or self-care (01) ==
LOC: SDC 11:17 → AC 11:19
PROVIDERS: PCP Internal Medicine; Referring Provider Urology; Visit Provider Urology
PROC: 0T7D8ZZ Dilation of Urethra, Via Natural or Artificial Opening Endoscopic (ICD-10-PCS; CPT 52276; principal; 2022-06-05 13:50)
DX: N35.919 Unspecified urethral stricture, male, unspecified site (principal); G82.20 Paraplegia, unspecified; Z89.611 Acquired absence of right leg above knee; Z89.512 Acquired absence of left leg below knee; R33.9 Retention of urine, unspecified; Z53.09 Procedure and treatment not carried out because of other contraindication; Z87.891 Personal history of nicotine dependence; K21.9 Gastro-esophageal reflux disease without esophagitis
CPT/HCPCS: 52276; 00910; J7120; C1769; J2405

== ENCOUNTER 2022-06-22 10:52 | Outpatient (RCR) | payer MEDICARE, MEDICAID, SELFPAY ==
[2022-05-11 00:20] VITALS: BP 87/44; PULSE 135; RESP 16; TEMP 36.4; BMI 19.8
[2022-06-22 11:33] VITALS: BP 119/84; PULSE 102; TEMP 36.2; BMI 19.8
--- NOTE | 2022-06-22 13:21 | PN.PCM_ITS ---
History of Present Illness Date of Service: 06/22/22 Chief Complaint: Bilateral ischial pressure sores, Stage IV. History of Wound: Surgery 04/08/20 - 1. Excision bleeding right ischial/perineal pressure sore, Stage IV. 2. Control of prostatic bleeding with electrocautery and Surgicel hemostat. Wound Care - Rinse ulcers with Dakin's solution and then cover Silver alginate dressing covered with gauze then top with ABD daily. Wound culture from 03/02/22 positive for Pseudomonas aeroginosa, Morganella morganii sp sibonii, and Corynebacterium. Due to his allergies and the the sensitivity of the cultures, patient was referred to ID, who placed him on Augmentin and Cipro, which he currently is on and is tolerating. Wound culture from 01/20/21 positive for Proteus mirabilis, Cornybacterium minutissium and Bacteroides fragilis. He was referred to ID for antibiotic management, which he was placed on Cefdinir, Doxycycline and Flagyl for 10 days. Patient has long standing bilateral ischial pressure sores, Stage IV, with the left side extending to the femoral head and the right side extending to the perineal area and the prostate. Surgery would entail quite extensive excision with amputations at a tertiary center. Patient does not want to pursue any heroic surgeries at this time since it is not a guarantee his pressure issues won't recur. With aggressive amputations, his already tenuous balance would be even more disrupted. At the present time, we are providing conservative care on a monthly basis. He stated his right leg gets in the way when transferring. He underwent a right AKA on 06/12/20 in [place]. Wound culture was done on 04/22/20. It showed Morganella morganii, Pseudomonas aeroginosa, Streptococcus group F, and Bacteroides fragilis. He has a lot of antibiotic allergies. His only real option is IV antibiotics. Dr. Chester also saw him at the [facility] and felt the wounds were colonized and held off on antibiotics at this time. If his clinical situation were to change, then would re-evaluate him for IV antibiotics at that time. Wound culture from 11/01/20 was positive for MRSA, E. coli, Proteus Mirabilis. He was treated with Augmentin and doxycycline. Today he denies any fever. He states that he is getting chills and sweating on his one side. He states he is having difficulty with his appetite. Progress of Wound: Left ischial ulcer and right perianal ulcers are stable. Pernell states that the drainage he has been experiencing has been discovered it is coming from his bladder. He is seeing a urologist through [facility] to help manage this. Objective Data Objective Data Vital Signs: Vital Signs Temp Pulse Resp BP 97.2 F L 102 H 16 119/84 H 06/22/22 11:33 06/22/22 11:33 05/11/22 00:20 06/22/22 11:33 Body Mass Index (BMI) 19.8 Charges/Coding Procedures Integumentary 111xxx-113xx: 44253 Manisha musc/fascia 20 sq cm/< Add On Codes: 30200 Manisha musc/fascia add-on (x2) Physical Exam Const alert and oriented x3 General Appearance: cooperative HEENT normocephalic Resp normal respiratory effort Extremity normal capillary refill Skin Wound Narrative: Left ischial ulcer cluster with a tunnel at 3 o'clock, today there is clear infante drainage from this area when he shifts, most likely synovial fluid from his hip. Right ischial/perineal ulcer is stable with thick scar tissue surrounding the ulcer, the center of the ulcer is beefy pink. Neuro CN's II-XII intact bilaterally Psych Appearance: grossly normal Debridement Note Debridement Note Wound debrided: ishial ulcer Laterality: Left Wound Grade/Stage: Stage IV Type of Debridement: Excisional debridement Anesthesia Used: 4% Lidocaine Solution Depth: Down to and including healthy tissue, in the subcutaneous layer and to muscle Percentage of wound debrided: 100 Instrument Used: 5mm curette Tissue Removed: Non viable tissue and slough, into the muscle Severity: Fat Layer Exposed Amount of bleeding with debridement: Mild Bleeding Controlled with: Pressure, Compression and gauze and Silver Nitrate Patient tolerated procedure: Patient tolerated procedure well Debridement Free Text: Silver nitrate used on the one area at 6 o'clock that was oozing after 10 minutes of pressure being held. The silver nitrate helped stop the oozing. Post-Debridement Measurements and Additional Note: Post-Debridement Measurements/Treatment NIKA - Nurse 1 - General Ulcer Assessment Start: 06/22/22 11:32 Freq: Status: Active Protocol: WILLIMAS Activity Type Activity Date Activity User E-sign Co-sign Detail Recorded Client Recorded Date Recorded By Document 06/22/22 11:33 AK [id number] 06/22/22 11:36 DC 06/22/22 11:33 WC - Today's Visit Information Type of service Follow-up Visit (Physician/INSPECTOR TYPE ) Arrival Mode Wheelchair Patient Identification Verified (Name & Yes ) Patient Requires Transmission-Based No Precautions Safety Precautions NA Height and Weight Body Mass Index (BMI) 19.8 BMI Classification Normal Vital Signs Temperature (97.8 F-99.1 F) 97.2 F L Temperature Source Temporal Pulse Rate (60-100) 102 H Pulse Location Monitor Blood Pressure (90/60-120/80) 119/84 H Blood Pressure Mean (mm Hg) 95 Source Monitor History Since Last Visit- (Skip if this is Patient's initial visit) Have you changed medications since your No last visit? Any new allergies or adverse reactions No Had a fall/change in ADL's that may No increase risk of falls Signs or symptoms of abuse and/or No neglect since last visit Have you been in the hospital since your No last visit? Has dressing in place as prescribed Yes Has compression in place as prescribed N/A Has offloadiing in place as prescribed N/A Experienced any changes in pain level or No management Pain Scale: 0-10 Numeric Is Patient Pain Free? Yes - Nurse 1 - General Ulcer Measurement Start: 06/22/22 11:32 Freq: Status: Active Protocol: Activity Type Activity Date Activity User E-sign Co-sign Detail Recorded Client Recorded Date Recorded By Document 06/22/22 11:33 DC [id number] 06/22/22 11:36 DC 06/22/22 11:33 Wound Center Nurse 1 #8 L Ischium cluster -Combined with other wound No -Current Size (cm) - Length 7 -Current Size (cm) - Width 7 -Current Size (cm) - Depth 0.1 -Total Square Cm 49 -Photo Taken No -Tunneling No -Undermining/Tunneling No -Circular Undermining No -Change in Wound Grade/Stage No -Exudate Amt Medium -Exudate Type Serosanguineous -Wound Margin Distinct, Outline Attached -Granulation Amt Large (67-100%) -Granulation Quality Pale,[place] -Slough/Fibrin Yes -Necrosis Amt Small (1-33%) -Necrotic Tissue Type Adherent Slough -Structure Exposed N/A -Texture (Steffi-wound Skin Appearance) No Abnormality, Assessed -Moisture (Steffi-wound Skin Appearance) Assessed, Maceration -Color (Steffi-wound Skin Appearance) No Abnormality, Assessed -Temperature (Steffi-wound Skin No Abnormality Appearance) (Pt Warm) -Tenderness on Palpation (Steffi-wound No Skin Appearance) -Ulcer Cleansing Soap and Water -Foul Odor after Cleansing No #7 R Ischium cluster -Combined with other wound No -Current Size (cm) - Length 1 -Current Size (cm) - Width 3 -Current Size (cm) - Depth 0.1 -Total Square Cm 3 -Photo Taken No -Tunneling No -Undermining/Tunneling No -Circular Undermining No -Change in Wound Grade/Stage No -Exudate Amt Small -Exudate Type Serosanguineous -Wound Margin Distinct, Outline Attached -Granulation Amt Medium (34-66%) -Granulation Quality [place] -Slough/Fibrin No -Necrosis Amt None Present (0 %) -Structure Exposed N/A -Texture (Steffi-wound Skin Appearance) No Abnormality, Assessed -Moisture (Steffi-wound Skin Appearance) Assessed, Maceration -Color (Steffi-wound Skin Appearance) No Abnormality, Assessed -Temperature (Steffi-wound Skin No Abnormality Appearance) (Pt Warm) -Tenderness on Palpation (Steffi-wound No Skin Appearance) -Ulcer Cleansing Soap and Water -Foul Odor after Cleansing No WC - Nurse 2 - General Ulcer CM Notes Start: 06/22/22 11:32 Freq: Status: Active Protocol: Activity Type Activity Date Activity User E-sign Co-sign Detail Recorded Client Recorded Date Recorded By Document 06/22/22 12:16 DEBORAH [id number] 06/22/22 12:31 DEBORAH 06/22/22 12:16 Wound Center Nurse 2 #8 L Ischium cluster -Time 12:16 -Correct Patient Yes -Correct Side, Site, Position Yes -Correct Procedure Yes -Procedure Performed Yes -Type of Procedure Debridement -Clinical Debridement Muscle / Fascia -Tissue Removed Muscle -Post Debridement (cm) - Length 7.5 -Post Debridement (cm) - Width 5.8 -Post Debridement (cm) - Depth 0.5 -Total Square (Post) (cm) 43.50 -Area of Debridement (cm) - Length 7.5 -Area of Debridement (cm) - Width 5.8 -Total Square (Area) (cm) 43.50 -Tunneling No -Undermining/Tunneling No -Circular Undermining No -Wound/Ulcer Outcome Not Healed -Ulcer Cleansing Rinsed/ Irrigated with Saline -Foul Odor after Cleansing No -Bioengineered Tissue No -Bleeding Controlled with Pressure -Treatment Response Procedure Tolerated Well -Offloading No -Pressure Reduction Wheelchair cushion -Debridement - Muscle / Fascia, 1st Yes 20sq cm -Debridement, Muscle/Fascia, ea addt'l 2 20sq cm or part thereof #7 R Ischium cluster -Time 12:17 -Correct Patient Yes -Correct Side, Site, Position Yes -Correct Procedure Yes -Procedure Performed Yes -Type of Procedure Debridement -Clinical Debridement Muscle / Fascia -Tissue Removed Muscle -Post Debridement (cm) - Length 4.2 -Post Debridement (cm) - Width 1.0 -Post Debridement (cm) - Depth 0.3 -Total Square (Post) (cm) 4.20 -Area of Debridement (cm) - Length 4.2 -Area of Debridement (cm) - Width 1.0 -Total Square (Area) (cm) 4.20 -Tunneling No -Undermining/Tunneling No -Circular Undermining No -Wound/Ulcer Outcome Not Healed -Ulcer Cleansing Rinsed/ Irrigated with Saline -Foul Odor after Cleansing No -Bioengineered Tissue No -Bleeding Controlled with Pressure -Treatment Response Procedure Tolerated Well -Offloading No -Pressure Reduction Wheelchair cushion -Debridement - Muscle / Fascia, 1st No 20sq cm Pain Scale: 0-10 Numeric Is Patient Pain Free? Yes - Nurse 3 - General Ulcer D/C NN Start: 06/22/22 11:32 Freq: Status: Active Protocol: Activity Type Activity Date Activity User E-sign Co-sign Detail Recorded Client Recorded Date Recorded By Document 06/22/22 12:32 DEBORAH [id number] 06/22/22 12:32 DEBORAH 06/22/22 12:32 Wound Care Nurse 3 #8 L Ischium cluster -Ulcer Cleansing Rinsed/ Irrigated with Saline -Foul Odor after Cleansing No -Primary Dressing Applied Silvercel -Primary Dressing Covered/Secured with Dry Gauze, Secured with Tape -Silvercel 1 #7 R Ischium cluster -Ulcer Cleansing Rinsed/ Irrigated with Saline -Foul Odor after Cleansing No -Primary Dressing Applied Silvercel -Primary Dressing Covered/Secured with Dry Gauze, Secured with Tape -Silvercel 0 Pain Scale: 0-10 Numeric Is Patient Pain Free? Yes WC - Visit Discharge Discharge Condition Stable Ambulatory Status Wheelchair Medication Reconcilliation completed & No provided to patient/care provider Clinical Summary of Care Provided No Additional Wound Wound debrided: perianal ulcer Laterality: Right Wound Grade/Stage: Stage IV Type of Debridement: Excisional debridement Anesthesia Used: 4% Lidocaine Solution Depth: Down to and including healthy tissue, in the subcutaneous layer and to muscle Percentage of wound debrided: 100 Instrument Used: 3mm curette Tissue Removed: Non viable tissue and slough into the muscle Severity: Fat Layer Exposed Amount of bleeding with debridement: Mild Bleeding Controlled with: Pressure and Compression and gauze Patient tolerated procedure: Patient tolerated procedure well Assessment/Plan Assessment/Plan (1) Pressure sore of left ischium, stage 4: CODE(S): L89.324 - Pressure ulcer of left buttock, stage 4 (2) Right ischial pressure sore, stage 4: CODE(S): L89.314 - Pressure ulcer of right buttock, stage 4 (3) Perineal ulcer: CODE(S): L98.499 - Non-pressure chronic ulcer of skin of other sites with unspecified severity QUALIFIERS: Non-pressure ulcer stage: unspecified non-pressure ulcer stage Qualified Code(s): L98.499 - Non-pressure chronic ulcer of skin of other sites with unspecified severity (4) Chronic osteomyelitis, pelvis: CODE(S): M86.659 - Other chronic osteomyelitis, unspecified thigh (5) Paraplegia at T4 level: CODE(S): G82.20 - Paraplegia, unspecified (6) History of tobacco use: CODE(S): Z87.891 - Personal history of nicotine dependence (7) Severe protein-calorie malnutrition: CODE(S): E43 - Unspecified severe protein-calorie malnutrition PLAN: Plan Wound care - Silver alginate covered with gauze and ABD to both the left ischial ulcer and the right ischial/perineal ulcer. They have moderate amount of drainage. The left ischial tunnel drains clear, synovial fluid from his hip. The new left anterior hip crease ulcer remains healed. Encourage nutritional supplementation with protein to help the healing process. Encouraged the patient to stop smoking as it may have deleterious effects on wound healing. Wound culture from 03/02/22 positive for Pseudomonas aeroginosa, Morganella morganii sp sibonii, and Corynebacterium. Due to his allergies and the the sensitivity of the cultures, patient was referred to ID, who placed him on Augmentin and Cipro, which he completed. CT on 04/08/22 of abdomen/pelvis showed: Diffuse soft tissue thickening of the perineum.? This is unchanged.? There is evidence of a bilateral scrotal hydroceles.? Marked degree of levoscoliosis of the lumbar spine.? Moderate degree of bilateral degenerative changes of both hip joints worse on the left side with erosive changes of the left femoral head and soft tissue density within the joint space.? The patient has a history of spina bifida. He states he saw Dr. Chester recently. Followup 3 weeks.
== END 2022-07-10 23:59 | disposition home or self-care (01) ==
LOC: WC 10:52
PROVIDERS: PCP Internal Medicine; Visit Provider Nurse Practitioner Family
DX: L89.314 Pressure ulcer of right buttock, stage 4 (principal); L89.324 Pressure ulcer of left buttock, stage 4; G82.20 Paraplegia, unspecified; Z89.611 Acquired absence of right leg above knee; L98.499 Non-pressure chronic ulcer of skin of other sites with unspecified severity; M86.68 Other chronic osteomyelitis, other site; Z87.891 Personal history of nicotine dependence; Z86.14 Personal history of Methicillin resistant Staphylococcus aureus infection; Z79.899 Other long term (current) drug therapy
CPT/HCPCS: 11043; 11046; 87086; 87088

== ENCOUNTER → 2022-07-17 | Outpatient (CLI) | payer MEDICARE, MEDICAID, SELFPAY ==
[2022-07-17 11:39] LABS: Erythrocyte Sedimentation Rate 35 mm/hr (0-20)
== END | disposition home or self-care (01) ==
PROVIDERS: PCP Internal Medicine; Visit Provider Internal Medicine Gastroenterology
DX: K50.90 Crohn's disease, unspecified, without complications (principal)
CPT/HCPCS: 36415; 85652; 86140

== ENCOUNTER 2022-08-03 11:13 | Outpatient (RCR) | payer MEDICARE, MEDICAID, SELFPAY ==
[2022-07-11 00:20] VITALS: BP 119/84; PULSE 102; RESP 16; TEMP 36.2; BMI 19.8
[2022-08-03 11:24] VITALS: BP 110/58; PULSE 57; TEMP 36.1; BMI 19.8
--- NOTE | 2022-08-03 12:23 | PN.PCM_ITS ---
History of Present Illness Date of Service: 08/03/22 Chief Complaint: Bilateral ischial pressure sores, Stage IV. History of Wound: Surgery 04/08/20 - 1. Excision bleeding right ischial/perineal pressure sore, Stage IV. 2. Control of prostatic bleeding with electrocautery and Surgicel hemostat. Wound Care - Rinse ulcers with Dakin's solution and then cover Silver alginate dressing covered with gauze then top with ABD daily. Wound culture from 03/02/22 positive for Pseudomonas aeroginosa, Morganella morganii sp sibonii, and Corynebacterium. Due to his allergies and the the sensitivity of the cultures, patient was referred to ID, who placed him on Augmentin and Cipro, which he currently is on and is tolerating. Wound culture from 01/20/21 positive for Proteus mirabilis, Cornybacterium minutissium and Bacteroides fragilis. He was referred to ID for antibiotic management, which he was placed on Cefdinir, Doxycycline and Flagyl for 10 days. Patient has long standing bilateral ischial pressure sores, Stage IV, with the left side extending to the femoral head and the right side extending to the perineal area and the prostate. Surgery would entail quite extensive excision with amputations at a tertiary center. Patient does not want to pursue any heroic surgeries at this time since it is not a guarantee his pressure issues won't recur. With aggressive amputations, his already tenuous balance would be even more disrupted. At the present time, we are providing conservative care on a monthly basis. He stated his right leg gets in the way when transferring. He underwent a right AKA on 06/12/20 in [place]. Wound culture was done on 04/22/20. It showed Morganella morganii, Pseudomonas aeroginosa, Streptococcus group F, and Bacteroides fragilis. He has a lot of antibiotic allergies. His only real option is IV antibiotics. Dr. Chester also saw him at the [facility] and felt the wounds were colonized and held off on antibiotics at this time. If his clinical situation were to change, then would re-evaluate him for IV antibiotics at that time. Wound culture from 11/01/20 was positive for MRSA, E. coli, Proteus Mirabilis. He was treated with Augmentin and doxycycline. Today he denies any fever. He states that he is getting chills and sweating on his one side. He states he is having difficulty with his appetite. Progress of Wound: Left and right ischial ulcers are stable. Objective Data Objective Data Vital Signs: Vital Signs Temp Pulse Resp BP 97.0 F L 57 L 16 110/58 L 08/03/22 11:24 08/03/22 11:24 07/11/22 00:20 08/03/22 11:24 Body Mass Index (BMI) 19.8 Charges/Coding Procedures Integumentary 111xxx-113xx: [id number] Manisha subq tissue 20 sq cm/< Add On Codes: 21671 Manisha subq tissue add-on (x2) Debridement Note Debridement Note Wound debrided: ishial ulcer Laterality: Left Wound Grade/Stage: Stage IV Type of Debridement: Excisional debridement Anesthesia Used: 4% Lidocaine Solution Depth: Down to and including healthy tissue and in the subcutaneous layer Percentage of wound debrided: 100 Instrument Used: 5mm curette Tissue Removed: Non viable tissue and slough Severity: Fat Layer Exposed Amount of bleeding with debridement: Mild Bleeding Controlled with: Pressure and Compression and gauze Patient tolerated procedure: Patient tolerated procedure well Post-Debridement Measurements and Additional Note: Post-Debridement Measurements/Treatment - Nurse 1 - General Ulcer Assessment Start: 08/03/22 11:23 Freq: Status: Active Protocol: WILLIAMS Activity Type Activity Date Activity User E-sign Co-sign Detail Recorded Client Recorded Date Recorded By Document 08/03/22 11:24 [id number] 08/03/22 11:25 KR 08/03/22 11:24 - Today's Visit Information Type of service Follow-up Visit (Physician/[employer]DER ) Arrival Mode Wheelchair Patient Identification Verified (Name & Yes ) Height and Weight Body Mass Index (BMI) 19.8 BMI Classification Normal Vital Signs Temperature (97.8 F-99.1 F) 97.0 F L Temperature Source Temporal Pulse Rate (60-100) 57 L Pulse Location Monitor Blood Pressure (90/60-120/80) 110/58 L Blood Pressure Mean (mm Hg) 75 Source Monitor Position Sitting Blood Pressure Location Left Arm History Since Last Visit- (Skip if this is Patient's initial visit) Have you changed medications since your No last visit? Any new allergies or adverse reactions No Had a fall/change in ADL's that may No increase risk of falls Signs or symptoms of abuse and/or No neglect since last visit Have you been in the hospital since your No last visit? Has dressing in place as prescribed Yes Has compression in place as prescribed N/A Has offloadiing in place as prescribed N/A Experienced any changes in pain level or No management Pain Scale: 0-10 Numeric Is Patient Pain Free? Yes WC - Nurse 1 - General Ulcer Measurement Start: 08/03/22 11:23 Freq: Status: Active Protocol: Activity Type Activity Date Activity User E-sign Co-sign Detail Recorded Client Recorded Date Recorded By Document 08/03/22 11:24 MENDEZ [id number] 08/03/22 11:25 KR 08/03/22 11:24 Wound Center Nurse 1 #8 L Ischium cluster -Current Size (cm) - Length 7.5 -Current Size (cm) - Width 6.5 -Current Size (cm) - Depth 0.1 -Total Square Cm 48.75 -Exudate Amt Medium -Exudate Type Serosanguineous -Wound Margin Distinct, Outline Attached -Granulation Amt Large (67-100%) -Granulation Quality Red -Necrosis Amt None Present (0 %) -Structure Exposed Bone -Texture (Steffi-wound Skin Appearance) Assessed, Scarring -Moisture (Steffi-wound Skin Appearance) No Abnormality, Assessed -Color (Steffi-wound Skin Appearance) No Abnormality, Assessed -Temperature (Steffi-wound Skin No Abnormality Appearance) (Pt Warm) -Tenderness on Palpation (Steffi-wound No Skin Appearance) -Ulcer Cleansing Rinsed/ Irrigated with Saline -Foul Odor after Cleansing No -Anesthetic Used 5% Lidocaine Gel #7 R Ischium cluster -Current Size (cm) - Length 3 -Current Size (cm) - Width 1 -Current Size (cm) - Depth 0.1 -Total Square Cm 3 -Exudate Amt Medium -Exudate Type Serosanguineous -Wound Margin Distinct, Outline Attached -Granulation Amt Medium (34-66%) -Granulation Quality [place] -Necrosis Amt None Present (0 %) -Structure Exposed Bone -Texture (Steffi-wound Skin Appearance) Assessed, Scarring -Moisture (Steffi-wound Skin Appearance) No Abnormality, Assessed -Color (Steffi-wound Skin Appearance) No Abnormality, Assessed -Temperature (Steffi-wound Skin No Abnormality Appearance) (Pt Warm) -Tenderness on Palpation (Steffi-wound No Skin Appearance) -Ulcer Cleansing Rinsed/ Irrigated with Saline -Foul Odor after Cleansing No -Anesthetic Used 5% Lidocaine Gel WC - Nurse 2 - General Ulcer CM Notes Start: 08/03/22 11:23 Freq: Status: Active Protocol: Activity Type Activity Date Activity User E-sign Co-sign Detail Recorded Client Recorded Date Recorded By Document 08/03/22 11:49 [id number] 08/03/22 11:56 DEBORAH 08/03/22 11:49 Wound Center Nurse 2 #8 L Ischium cluster -Time 11:52 -Correct Patient Yes -Correct Side, Site, Position Yes -Correct Procedure Yes -Procedure Performed Yes -Type of Procedure Debridement -Clinical Debridement Subcutaneous -Tissue Removed Subcutaneous -Post Debridement (cm) - Length 7.8 -Post Debridement (cm) - Width 5.8 -Post Debridement (cm) - Depth 1.1 -Total Square (Post) (cm) 45.24 -Area of Debridement (cm) - Length 7.8 -Area of Debridement (cm) - Width 5.8 -Total Square (Area) (cm) 45.24 -Tunneling Yes -Tunneling Position (O'clock) 9 -Tunneling Distance (cm) 0.5 -Undermining/Tunneling No -Circular Undermining No -Wound/Ulcer Outcome Not Healed -Ulcer Cleansing Rinsed/ Irrigated with Saline -Foul Odor after Cleansing No -Bioengineered Tissue No -Bleeding Controlled with Pressure -Treatment Response Procedure Tolerated Well -Offloading No -Pressure Reduction Wheelchair cushion -Debridement - Subq, 1st 20sq cm Yes -Debridement, SubQ, ea addt'l 20sq cm 2 or part thereof #7 R Ischium cluster -Time 11:53 -Correct Patient Yes -Correct Side, Site, Position Yes -Correct Procedure Yes -Procedure Performed Yes -Type of Procedure Debridement -Clinical Debridement Subcutaneous -Tissue Removed Subcutaneous -Post Debridement (cm) - Length 0.5 -Post Debridement (cm) - Width 3.7 -Post Debridement (cm) - Depth 0.5 -Total Square (Post) (cm) 1.85 -Area of Debridement (cm) - Length 0.5 -Area of Debridement (cm) - Width 3.7 -Total Square (Area) (cm) 1.85 -Tunneling No -Undermining/Tunneling No -Circular Undermining No -Wound/Ulcer Outcome Not Healed -Ulcer Cleansing Rinsed/ Irrigated with Saline -Foul Odor after Cleansing No -Bioengineered Tissue No -Bleeding Controlled with Pressure -Treatment Response Procedure Tolerated Well -Offloading No -Pressure Reduction Wheelchair cushion -Debridement - Subq, 1st 20sq cm No Pain Scale: 0-10 Numeric Is Patient Pain Free? Yes WC - Nurse 3 - General Ulcer D/C NN Start: 08/03/22 11:23 Freq: Status: Active Protocol: Activity Type Activity Date Activity User E-sign Co-sign Detail Recorded Client Recorded Date Recorded By Document 08/03/22 12:09 DL [id number] 08/03/22 12:12 DL 08/03/22 12:09 Wound Care Nurse 3 #8 L Ischium cluster -Ulcer Cleansing Rinsed/ Irrigated with Saline -Foul Odor after Cleansing No -Primary Dressing Applied Silvercel -Primary Dressing Covered/Secured with Dry Gauze, Secured with Tape -Silvercel 1 #7 R Ischium cluster -Ulcer Cleansing Rinsed/ Irrigated with Saline -Foul Odor after Cleansing No -Other Dressing silvercell -Primary Dressing Covered/Secured with Dry Gauze Treatment Response Procedure Tolerated Well Pain Scale: 0-10 Numeric Is Patient Pain Free? Yes - Visit Discharge Discharge Condition Stable Ambulatory Status Wheelchair Transportation Private [facility] Facility Type Home Health Orders Sent Yes Additional Wound Wound debrided: perianal/ischial ulcer Laterality: Right Wound Grade/Stage: Stage IV Type of Debridement: Excisional debridement Anesthesia Used: 4% Lidocaine Solution Depth: Down to and including healthy tissue and in the subcutaneous layer Percentage of wound debrided: 100 Instrument Used: 3mm curette Tissue Removed: Non viable tissue and slough Severity: Fat Layer Exposed Amount of bleeding with debridement: Mild Bleeding Controlled with: Pressure and Compression and gauze Patient tolerated procedure: Patient tolerated procedure well Assessment/Plan Assessment/Plan (1) Pressure sore of left ischium, stage 4: CODE(S): L89.324 - Pressure ulcer of left buttock, stage 4 (2) Right ischial pressure sore, stage 4: CODE(S): L89.314 - Pressure ulcer of right buttock, stage 4 (3) Perineal ulcer: CODE(S): L98.499 - Non-pressure chronic ulcer of skin of other sites with unspecified severity QUALIFIERS: Non-pressure ulcer stage: unspecified non-pressure ulcer stage Qualified Code(s): L98.499 - Non-pressure chronic ulcer of skin of other sites with unspecified severity (4) Chronic osteomyelitis, pelvis: CODE(S): M86.659 - Other chronic osteomyelitis, unspecified thigh (5) Paraplegia at T4 level: CODE(S): G82.20 - Paraplegia, unspecified (6) History of tobacco use: CODE(S): Z87.891 - Personal history of nicotine dependence (7) Severe protein-calorie malnutrition: CODE(S): E43 - Unspecified severe protein-calorie malnutrition PLAN: Plan Wound care - Silver alginate covered with gauze and ABD to both the left ischial ulcer and the right ischial/perineal ulcer. They have moderate amount of drainage. The left ischial tunnel drains clear, synovial fluid from his hip. Encourage nutritional supplementation with protein to help the healing process. Encouraged the patient to stop smoking as it may have deleterious effects on wound healing. Wound culture from 03/02/22 positive for Pseudomonas aeroginosa, Morganella morganii sp sibonii, and Corynebacterium. Due to his allergies and the the sensitivity of the cultures, patient was referred to ID, who placed him on Augme ntin and Cipro, which he completed. CT on 04/08/22 of abdomen/pelvis showed: Diffuse soft tissue thickening of the perineum.? This is unchanged.? There is evidence of a bilateral scrotal hydroceles.? Marked degree of levoscoliosis of the lumbar spine.? Moderate degree of bilateral degenerative changes of both hip joints worse on the left side with erosive changes of the left femoral head and soft tissue density within the joint space.? The patient has a history of spina bifida. He states he saw Dr. Chester recently. He is scheduled for surgery tomorrow 08/04/22 at the [facility] for cystectomy by Dr. Lala. He was not able to say what she exactly was doing besides removing his bladder. Followup 4 weeks.
== END 2022-08-10 23:59 | disposition home or self-care (01) ==
LOC: WC 11:13
PROVIDERS: PCP Internal Medicine; Visit Provider Nurse Practitioner Family
DX: L89.314 Pressure ulcer of right buttock, stage 4 (principal); L89.324 Pressure ulcer of left buttock, stage 4; G82.20 Paraplegia, unspecified; Z89.611 Acquired absence of right leg above knee; L98.499 Non-pressure chronic ulcer of skin of other sites with unspecified severity; M86.659 Other chronic osteomyelitis, unspecified thigh; Z87.891 Personal history of nicotine dependence
CPT/HCPCS: 11042; 11045

== ENCOUNTER 2022-08-31 11:09 | Outpatient (RCR) | payer MEDICARE, MEDICAID, SELFPAY ==
[2022-08-11 00:12] VITALS: BP 110/58; PULSE 57; RESP 16; TEMP 36.1; BMI 19.8
[2022-08-31 11:13] VITALS: BP 135/81; PULSE 129; RESP 16; TEMP 37; BMI 19.8
--- NOTE | 2022-08-31 13:11 | PCM.WC.PN ---
History of Present Illness Date of Service: 08/31/22 Chief Complaint: Bilateral ischial pressure sores, Stage IV. History of Wound: Surgery 04/08/20 - 1. Excision bleeding right ischial/perineal pressure sore, Stage IV. 2. Control of prostatic bleeding with electrocautery and Surgicel hemostat. Wound Care - Rinse ulcers with Dakin's solution and then cover Silver alginate dressing covered with gauze then top with ABD daily. Wound culture from 03/02/22 positive for Pseudomonas aeroginosa, Morganella morganii sp sibonii, and Corynebacterium. Due to his allergies and the the sensitivity of the cultures, patient was referred to ID, who placed him on Augmentin and Cipro, which he currently is on and is tolerating. Wound culture from 01/20/21 positive for Proteus mirabilis, Cornybacterium minutissium and Bacteroides fragilis. He was referred to ID for antibiotic management, which he was placed on Cefdinir, Doxycycline and Flagyl for 10 days. Patient has long standing bilateral ischial pressure sores, Stage IV, with the left side extending to the femoral head and the right side extending to the perineal area and the prostate. Surgery would entail quite extensive excision with amputations at a tertiary center. Patient does not want to pursue any heroic surgeries at this time since it is not a guarantee his pressure issues won't recur. With aggressive amputations, his already tenuous balance would be even more disrupted. At the present time, we are providing conservative care on a monthly basis. He stated his right leg gets in the way when transferring. He underwent a right AKA on 06/12/20 in [place]. Wound culture was done on 04/22/20. It showed Morganella morganii, Pseudomonas aeroginosa, Streptococcus group F, and Bacteroides fragilis. He has a lot of antibiotic allergies. His only real option is IV antibiotics. Dr. Chester also saw him at the Wound Center and felt the wounds were colonized and held off on antibiotics at this time. If his clinical situation were to change, then would re-evaluate him for IV antibiotics at that time. Wound culture from 11/01/20 was positive for MRSA, E. coli, Proteus Mirabilis. He was treated with Augmentin and doxycycline. He had a cystectomy and a partial prostatectomy by Dr. Lala at [facility] on 08/04/22. He states he is feeling better than he was before having his bladder removed. Today he denies any fever. He states that he is getting chills and sweating on his one side. He states he is having difficulty with his appetite. Progress of Wound: Left ischial ulcer cluster is stable. He continues to have synovial fluid leak from the tunnel around 2-5 o'clock. Right ischial ulcer wound bed is pink with thickened, callus like tissue surrounding the ulcer. Objective Data Objective Data Vital Signs: Vital Signs Temp Pulse Resp BP O2 Del Method 98.6 F 129 H 16 135/81 H Room Air 08/31/22 11:13 08/31/22 11:13 08/31/22 11:13 08/31/22 11:13 08/31/22 11:13 Oxygen Delivery Method Room Air Body Mass Index (BMI) 19.8 Charges/Coding Procedures Integumentary 111xxx-113xx: 63650 Manisha subq tissue 20 sq cm/< Add On Codes: 50319 Manisha subq tissue add-on (x2) Debridement Note Debridement Note Wound debrided: ishial ulcer Laterality: Left Wound Grade/Stage: Stage IV Type of Debridement: Excisional debridement Anesthesia Used: 4% Lidocaine Solution Depth: Down to and including healthy tissue and in the subcutaneous layer Percentage of wound debrided: 100 Instrument Used: 5mm curette Tissue Removed: Non viable tissue and slough Severity: Fat Layer Exposed Amount of bleeding with debridement: Mild Bleeding Controlled with: Pressure and Compression and gauze Patient tolerated procedure: Patient tolerated procedure well Post-Debridement Measurements and Additional Note: Post-Debridement Measurements/Treatment - Nurse 1 - General Ulcer Assessment Start: 08/31/22 11:13 Freq: Status: Active Protocol: NIKA.LOWEXT Activity Type Activity Date Activity User E-sign Co-sign Detail Recorded Client Recorded Date Recorded By Document 08/31/22 11:13 [facility] [id number] 08/31/22 11:24 [facility] 08/31/22 11:13 - Today's Visit Information Type of service Follow-up Visit (Physician/[employer] ) Arrival Mode Wheelchair Transfer Assistance Other Transfer Assist (Other) STAND BY Patient Identification Verified (Name & Yes ) Patient Requires Transmission-Based No Precautions Height and Weight Body Mass Index (BMI) 19.8 BMI Classification Normal Vital Signs Temperature (97.8 F-99.1 F) 98.6 F Temperature Source Temporal Pulse Rate (60-100) 129 H Pulse Location Monitor Respiratory Rate (12-18) 16 Respiratory rate source Observation Oxygen Delivery Method Room Air Blood Pressure (90/60-120/80) 135/81 H Blood Pressure Mean (mm Hg) 99 Source Monitor Position Sitting Blood Pressure Location Left Arm History Since Last Visit- (Skip if this is Patient's initial visit) Have you changed medications since your No last visit? Any new allergies or adverse reactions No Had a fall/change in ADL's that may No increase risk of falls Signs or symptoms of abuse and/or No neglect since last visit Have you been in the hospital since your No last visit? Has dressing in place as prescribed Yes Has offloadiing in place as prescribed N/A Experienced any changes in pain level or No management Pain Scale: 0-10 Numeric Is Patient Pain Free? Yes WC - Nurse 1 - General Ulcer Measurement Start: 08/31/22 11:13 Freq: Status: Active Protocol: Activity Type Activity Date Activity User E-sign Co-sign Detail Recorded Client Recorded Date Recorded By Document 08/31/22 11:13 [facility] [id number] 08/31/22 11:24 [facility] 08/31/22 11:13 Wound Center Nurse 1 #8 L Ischium cluster -Combined with other wound No -Current Size (cm) - Length 1.2 -Current Size (cm) - Width 1.5 -Current Size (cm) - Depth 0.1 -Total Square Cm 1.80 -Date of Last Picture (Recall this 08/31/22 field) -Photo Taken Yes -Epithelialization Small 1-33% -Tunneling No -Undermining/Tunneling Yes -Undermining/Tunneling Starts (O'clock 3 ) -Undermining/Tunneling Ends (O'clock) 5 -Maximum Distance (cm) 1.4 -Circular Undermining No -Exudate Amt Medium -Exudate Type Serosanguineous -Wound Margin Distinct, Outline Attached -Granulation Amt Large (67-100%) -Granulation Quality Red -Slough/Fibrin Yes -Necrosis Amt None Present (0 %) -Texture (Steffi-wound Skin Appearance) Assessed, Scarring -Moisture (Steffi-wound Skin Appearance) Assessed -Color (Steffi-wound Skin Appearance) Assessed -Temperature (Steffi-wound Skin No Abnormality Appearance) (Pt Warm) -Tenderness on Palpation (Steffi-wound No Skin Appearance) -Ulcer Cleansing Soap and Water -Foul Odor after Cleansing No #7 R Ischium cluster -Combined with other wound No -Current Size (cm) - Length 3 -Current Size (cm) - Width 0.5 -Current Size (cm) - Depth 0.1 -Total Square Cm 1.5 -Date of Last Picture (Recall this 08/31/22 field) -Photo Taken Yes -Tunneling No -Undermining/Tunneling No -Circular Undermining No -Exudate Amt Medium -Exudate Type Serosanguineous -Wound Margin Thickened -Granulation Amt Large (67-100%) -Granulation Quality Red -Slough/Fibrin No -Necrosis Amt None Present (0 %) -Texture (Steffi-wound Skin Appearance) Assessed, Scarring -Moisture (Steffi-wound Skin Appearance) Assessed, Maceration -Color (Steffi-wound Skin Appearance) Assessed -Temperature (Steffi-wound Skin No Abnormality Appearance) (Pt Warm) -Ulcer Cleansing Soap and Water -Foul Odor after Cleansing No WC - Nurse 2 - General Ulcer CM Notes Start: 08/31/22 11:13 Freq: Status: Active Protocol: Activity Type Activity Date Activity User E-sign Co-sign Detail Recorded Client Recorded Date Recorded By Document 08/31/22 11:33 DEBORAH [id number] 08/31/22 11:41 DEBORAH 08/31/22 11:33 Wound Center Nurse 2 #8 L Ischium cluster -Time 11:35 -Correct Patient Yes -Correct Side, Site, Position Yes -Correct Procedure Yes -Procedure Performed Yes -Type of Procedure Debridement -Clinical Debridement Subcutaneous -Tissue Removed Subcutaneous -Post Debridement (cm) - Length 6.1 -Post Debridement (cm) - Width 7.7 -Post Debridement (cm) - Depth 2.2 -Total Square (Post) (cm) 46.97 -Area of Debridement (cm) - Length 6.1 -Area of Debridement (cm) - Width 7.7 -Total Square (Area) (cm) 46.97 -Tunneling No -Undermining/Tunneling No -Circular Undermining No -Wound/Ulcer Outcome Not Healed -Ulcer Cleansing Rinsed/ Irrigated with Saline -Foul Odor after Cleansing No -Bioengineered Tissue No -Bleeding Controlled with Pressure -Treatment Response Procedure Tolerated Well -Offloading No -Pressure Reduction Wheelchair cushion -Debridement - Subq, 1st 20sq cm No #7 R Ischium cluster -Time 11:36 -Correct Patient Yes -Correct Side, Site, Position Yes -Correct Procedure Yes -Procedure Performed Yes -Type of Procedure Debridement -Clinical Debridement Subcutaneous -Tissue Removed Subcutaneous -Post Debridement (cm) - Length 3.0 -Post Debridement (cm) - Width 1.7 -Post Debridement (cm) - Depth 0.3 -Total Square (Post) (cm) 5.10 -Area of Debridement (cm) - Length 3.0 -Area of Debridement (cm) - Width 1.7 -Total Square (Area) (cm) 5.10 -Tunneling No -Circular Undermining No -Wound/Ulcer Outcome Not Healed -Ulcer Cleansing Rinsed/ Irrigated with Saline -Bioengineered Tissue No -Bleeding Controlled with Pressure -Treatment Response Procedure Tolerated Well -Offloading No -Debridement - Subq, 1st 20sq cm Yes -Debridement, SubQ, ea addt'l 20sq cm 2 or part thereof Pain Scale: 0-10 Numeric Is Patient Pain Free? Yes - Nurse 3 - General Ulcer D/C NN Start: 08/31/22 11:13 Freq: Status: Active Protocol: Activity Type Activity Date Activity User E-sign Co-sign Detail Recorded Client Recorded Date Recorded By Document 08/31/22 11:52 [facility] [id number] 08/31/22 11:53 [facility] 08/31/22 11:52 Wound Care Nurse 3 #8 L Ischium cluster -Ulcer Cleansing Rinsed/ Irrigated with Saline -Foul Odor after Cleansing No -Primary Dressing Applied Aquacel AG 4x4 -Other Dressing ABD -Primary Dressing Covered/Secured with Secured with Tape -Other Covering DRSG PER DL DRILLING RIG OPERATOR -Aquacel AG 4x4 1 #7 R Ischium cluster -Ulcer Cleansing Rinsed/ Irrigated with Saline -Foul Odor after Cleansing No -Primary Dressing Applied Aquacel AG 4x4 -Other Dressing ABD -Primary Dressing Covered/Secured with Secured with Tape -Other Covering DRSG PER DL DRILLING RIG OPERATOR -Aquacel AG 4x4 0 Treatment Response Procedure Tolerated Well Pain Scale: 0-10 Numeric Is Patient Pain Free? Yes WC - Visit Discharge Discharge Condition Stable Ambulatory Status Wheelchair Transportation Private Auto Additional Wound Wound debrided: perianal/ischial ulcer Laterality: Right Wound Grade/Stage: Stage IV Type of Debridement: Excisional debridement Anesthesia Used: 4% Lidocaine Solution Depth: Down to and including healthy tissue and in the subcutaneous layer Percentage of wound debrided: 100 Instrument Used: 3mm curette Tissue Removed: Non viable tissue and slough Severity: Fat Layer Exposed Amount of bleeding with debridement: Mild Bleeding Controlled with: Pressure and Compression and gauze Patient tolerated procedure: Patient tolerated procedure well Assessment/Plan Assessment/Plan (1) Pressure sore of left ischium, stage 4: CODE(S): L89.324 - Pressure ulcer of left buttock, stage 4 (2) Right ischial pressure sore, stage 4: CODE(S): L89.314 - Pressure ulcer of right buttock, stage 4 (3) Perineal ulcer: CODE(S): L98.499 - Non-pressure chronic ulcer of skin of other sites with unspecified severity QUALIFIERS: Non-pressure ulcer stage: unspecified non-pressure ulcer stage Qualified Code(s): L98.499 - Non-pressure chronic ulcer of skin of other sites with unspecified severity (4) Chronic osteomyelitis, pelvis: CODE(S): M86.659 - Other chronic osteomyelitis, unspecified thigh (5) Paraplegia at T4 level: CODE(S): G82.20 - Paraplegia, unspecified (6) History of tobacco use: CODE(S): Z87.891 - Personal history of nicotine dependence (7) Severe protein-calorie malnutrition: CODE(S): E43 - Unspecified severe protein-calorie malnutrition PLAN: Plan Patient was evaluated at the wound healing center today. Wound care - Silvercel (silver alginate) covered with gauze or ABD to both the left ischial ulcer and the right ischial/perineal ulcer. They have moderate amount of drainage. The left ischial tunnel drains clear, synovial fluid from his hip. Encourage nutritional supplementation with protein to help the healing process. Patient states his appetite has slightly improved since his surgery. Wound culture from 03/02/22 positive for Pseudomonas aeroginosa, Morganella morganii sp sibonii, and Corynebacterium. Due to his allergies and the the sensitivity of the cultures, patient was referred to ID, who placed him on Augmentin and Cipro, which he completed. CT on 04/08/22 of abdomen/pelvis showed: Diffuse soft tissue thickening of the perineum.? This is unchanged.? There is evidence of a bilateral scrotal hydroceles.? Marked degree of levoscoliosis of the lumbar spine.? Moderate degree of bilateral degenerative changes of both hip joints worse on the left side with erosive changes of the left femoral head and soft tissue density within the joint space.? The patient has a history of spina bifida. He states he saw Dr. Chester recently. Follow up 4 weeks. Call or come in sooner if have any concerns.
== END 2022-09-09 23:59 | disposition home or self-care (01) ==
LOC: WC 11:09
PROVIDERS: PCP Internal Medicine; Visit Provider Nurse Practitioner Family
DX: L89.314 Pressure ulcer of right buttock, stage 4 (principal); L89.324 Pressure ulcer of left buttock, stage 4; G82.20 Paraplegia, unspecified; L98.499 Non-pressure chronic ulcer of skin of other sites with unspecified severity; M86.659 Other chronic osteomyelitis, unspecified thigh; Z87.891 Personal history of nicotine dependence
CPT/HCPCS: 11042; 11045

== ENCOUNTER 2022-10-06 14:05 | Outpatient (RCR) | payer MEDICARE, MEDICAID, SELFPAY ==
[2022-09-10 00:13] VITALS: BP 135/81; PULSE 129; RESP 16; TEMP 37; BMI 19.8
[2022-10-06 14:13] VITALS: BP 98/67; PULSE 108; RESP 18; TEMP 36; BMI 19.8
--- NOTE | 2022-10-06 16:15 | PN.PCM_ITS ---
History of Present Illness Date of Service: 10/06/22 Chief Complaint: Bilateral ischial pressure sores, Stage IV. History of Wound: Surgery 04/08/20 - 1. Excision bleeding right ischial/perineal pressure sore, Stage IV. 2. Control of prostatic bleeding with electrocautery and Surgicel hemostat. Wound Care - Rinse ulcers with Dakin's solution and then cover Silver alginate dressing covered with gauze then top with ABD daily. Wound culture from 03/02/22 positive for Pseudomonas aeroginosa, Morganella morganii sp sibonii, and Corynebacterium. Due to his allergies and the the sensitivity of the cultures, patient was referred to ID, who placed him on Augmentin and Cipro, which he currently is on and is tolerating. Wound culture from 01/20/21 positive for Proteus mirabilis, Cornybacterium minutissium and Bacteroides fragilis. He was referred to ID for antibiotic management, which he was placed on Cefdinir, Doxycycline and Flagyl for 10 days. Patient has long standing bilateral ischial pressure sores, Stage IV, with the left side extending to the femoral head and the right side extending to the perineal area and the prostate. Surgery would entail quite extensive excision with amputations at a tertiary center. Patient does not want to pursue any heroic surgeries at this time since it is not a guarantee his pressure issues won't recur. With aggressive amputations, his already tenuous balance would be even more disrupted. At the present time, we are providing conservative care on a monthly basis. He stated his right leg gets in the way when transferring. He underwent a right AKA on 06/12/20 in [place]. Wound culture was done on 04/22/20. It showed Morganella morganii, Pseudomonas aeroginosa, Streptococcus group F, and Bacteroides fragilis. He has a lot of antibiotic allergies. His only real option is IV antibiotics. Dr. Chester also saw him at the [facility] and felt the wounds were colonized and held off on antibiotics at this time. If his clinical situation were to change, then would re-evaluate him for IV antibiotics at that time. Wound culture from 11/01/20 was positive for MRSA, E. coli, Proteus Mirabilis. He was treated with Augmentin and doxycycline. He had a cystectomy and a partial prostatectomy by Dr. Lala at [facility] on 08[facility]. He states he is feeling better than he was before having his bladder removed. Today he denies any fever. He states that he is getting chills and sweating on his one side. He states he is having difficulty with his appetite. Progress of Wound: Left ischial ulcer cluster is stable. He continues to have synovial fluid leak from the tunnel around 2-5 o'clock. There is no odor. Right ischial ulcer wound bed is pink with thickened, callus like tissue surrounding the ulcer. He states that he has noticed a slimy layer on the left ulcer and he was having chills like he gets when he has an infection. He was placed on Cipro by the surgeon who removed his bladder for a week and he noticed an improvement in the sliminess of the ulcer. Objective Data Objective Data Vital Signs: Vital Signs Temp Pulse Resp BP 96.8 F L 108 H 18 98/67 10/06/22 14:13 10/06/22 14:13 10/06/22 14:13 10/06/22 14:13 Body Mass Index (BMI) 19.8 Charges/Coding Procedures Integumentary 111xxx-113xx: 25435 Manisha musc/fascia 20 sq cm/< Add On Codes: 44257 Manisha musc/fascia add-on (x2) Debridement Note Debridement Note Wound debrided: ishial ulcer Laterality: Left Wound Grade/Stage: Stage IV Type of Debridement: Excisional debridement Anesthesia Used: 4% Lidocaine Solution Depth: Down to and including healthy tissue, in the subcutaneous layer and to muscle Percentage of wound debrided: 100 Instrument Used: 7mm curette Tissue Removed: Non viable tissue and slough into the muscle Severity: Fat Layer Exposed Amount of bleeding with debridement: Mild Bleeding Controlled with: Pressure and Compression and gauze Patient tolerated procedure: Patient tolerated procedure well Post-Debridement Measurements and Additional Note: Post-Debridement Measurements/Treatment NIKA - Nurse 1 - General Ulcer Assessment Start: 10/06/22 14:11 Freq: Status: Active Protocol: WILLIAMS Activity Type Activity Date Activity User E-sign Co-sign Detail Recorded Client Recorded Date Recorded By Document 10/06/22 14:13 DL [id number] 10/06/22 14:24 DL 10/06/22 14:13 NIKA - Today's Visit Information Type of service Follow-up Visit (Physician/SAFETY INSTRUCTOR ) Arrival Mode Wheelchair Transfer Assistance Manual Patient Identification Verified (Name & Yes ) Patient Requires Transmission-Based No Precautions Height and Weight Body Mass Index (BMI) 19.8 BMI Classification Normal Vital Signs Temperature (97.8 F-99.1 F) 96.8 F L Temperature Source Temporal Pulse Rate (60-100) 108 H Pulse Location Monitor Respiratory Rate (12-18) 18 Respiratory rate source Observation Blood Pressure (90/60-120/80) 98/67 Blood Pressure Mean (mm Hg) 77 Source Monitor History Since Last Visit- (Skip if this is Patient's initial visit) Have you changed medications since your No last visit? Any new allergies or adverse reactions No Had a fall/change in ADL's that may No increase risk of falls Signs or symptoms of abuse and/or No neglect since last visit Have you been in the hospital since your No last visit? Has dressing in place as prescribed Yes Has compression in place as prescribed N/A Has offloadiing in place as prescribed Yes Experienced any changes in pain level or No management Pain Scale: 0-10 Numeric Is Patient Pain Free? Yes WC - Nurse 1 - General Ulcer Measurement Start: 10/06/22 14:11 Freq: Status: Active Protocol: Activity Type Activity Date Activity User E-sign Co-sign Detail Recorded Client Recorded Date Recorded By Document 10/06/22 14:13 DL [id number] 10/06/22 14:24 DL 10/06/22 14:13 Wound Center Nurse 1 #8 L Ischium cluster -Current Size (cm) - Length 4.4 -Current Size (cm) - Width 5.8 -Current Size (cm) - Depth 0.1 -Total Square Cm 25.52 -Photo Taken Yes -Undermining/Tunneling Starts (O'clock 3 ) -Undermining/Tunneling Ends (O'clock) 5 -Maximum Distance (cm) 0.6 -Exudate Amt Medium -Exudate Type Serosanguineous -Wound Margin Thickened & Rolled Under -Granulation Amt Large (67-100%) -Granulation Quality [place] -Necrosis Amt Small (1-33%) -Necrotic Tissue Type Adherent Slough -Structure Exposed N/A -Texture (Steffi-wound Skin Appearance) Scarring -Moisture (Steffi-wound Skin Appearance) No Abnormality -Color (Steffi-wound Skin Appearance) No Abnormality -Temperature (Steffi-wound Skin No Abnormality Appearance) (Pt Warm) -Tenderness on Palpation (Steffi-wound No Skin Appearance) -Ulcer Cleansing Soap and Water -Foul Odor after Cleansing Yes, Due to Product Use -Anesthetic Used 5% Lidocaine Gel #7 R Ischium cluster -Current Size (cm) - Length 3 -Current Size (cm) - Width 5 -Current Size (cm) - Depth 0.1 -Total Square Cm 15 -Photo Taken Yes -Exudate Amt Small -Exudate Type Serosanguineous -Wound Margin Thickened & Rolled Under -Granulation Amt Large (67-100%) -Granulation Quality [place] -Necrosis Amt Small (1-33%) -Necrotic Tissue Type Adherent Slough -Structure Exposed N/A -Texture (Steffi-wound Skin Appearance) Localized Edema -Moisture (Steffi-wound Skin Appearance) No Abnormality -Color (Steffi-wound Skin Appearance) No Abnormality -Temperature (Steffi-wound Skin No Abnormality Appearance) (Pt Warm) -Tenderness on Palpation (Steffi-wound No Skin Appearance) -Ulcer Cleansing Soap and Water -Foul Odor after Cleansing No -Anesthetic Used 5% Lidocaine Gel WC - Nurse 2 - General Ulcer CM Notes Start: 10/06/22 14:11 Freq: Status: Active Protocol: Activity Type Activity Date Activity User E-sign Co-sign Detail Recorded Client Recorded Date Recorded By Document 10/06/22 15:02 [id number] 10/06/22 15:08 10/06/22 15:02 Wound Center Nurse 2 #8 L Ischium cluster -Time 15:02 -Correct Patient Yes -Correct Side, Site, Position Yes -Correct Procedure Yes -Procedure Performed Yes -Type of Procedure Debridement -Clinical Debridement Muscle / Fascia -Tissue Removed Muscle,Fascia -Post Debridement (cm) - Length 6.5 -Post Debridement (cm) - Width 7.5 -Post Debridement (cm) - Depth 1.4 -Total Square (Post) (cm) 48.75 -Area of Debridement (cm) - Length 6.5 -Area of Debridement (cm) - Width 7.5 -Total Square (Area) (cm) 48.75 -Tunneling No -Undermining/Tunneling No -Circular Undermining No -Wound/Ulcer Outcome Not Healed -Ulcer Cleansing Rinsed/ Irrigated with Saline -Foul Odor after Cleansing No -Bioengineered Tissue No -Bleeding Controlled with Pressure -Treatment Response Procedure Tolerated Well -Offloading No -Debridement - Muscle / Fascia, 1st No 20sq cm #7 R Ischium cluster -Time 15:03 -Correct Patient Yes -Correct Side, Site, Position Yes -Correct Procedure Yes -Procedure Performed Yes -Type of Procedure Debridement -Clinical Debridement Muscle / Fascia -Tissue Removed Muscle,Fascia -Post Debridement (cm) - Length 3.7 -Post Debridement (cm) - Width 0.5 -Post Debridement (cm) - Depth 0.2 -Total Square (Post) (cm) 1.85 -Area of Debridement (cm) - Length 3.7 -Area of Debridement (cm) - Width 0.5 -Total Square (Area) (cm) 1.85 -Tunneling No -Undermining/Tunneling No -Circular Undermining No -Wound/Ulcer Outcome Not Healed -Ulcer Cleansing Rinsed/ Irrigated with Saline -Foul Odor after Cleansing No -Bioengineered Tissue No -Bleeding Controlled with Pressure -Treatment Response Procedure Tolerated Well -Offloading No -Debridement - Muscle / Fascia, 1st Yes 20sq cm -Debridement, Muscle/Fascia, ea addt'l 2 20sq cm or part thereof Pain Scale: 0-10 Numeric Is Patient Pain Free? Yes Additional Wound Wound debrided: perianal/ischial ulcer Laterality: Right Wound Grade/Stage: Stage IV Type of Debridement: Excisional debridement Anesthesia Used: 4% Lidocaine Solution Depth: Down to and including healthy tissue, in the subcutaneous layer and to muscle Percentage of wound debrided: 100 Instrument Used: 3mm curette Tissue Removed: Non viable tissue and slough Severity: Fat Layer Exposed Amount of bleeding with debridement: Mild Bleeding Controlled with: Pressure and Compression and gauze Patient tolerated procedure: Patient tolerated procedure well Assessment/Plan Assessment/Plan (1) Pressure sore of left ischium, stage 4: CODE(S): L89.324 - Pressure ulcer of left buttock, stage 4 (2) Right ischial pressure sore, stage 4: CODE(S): L89.314 - Pressure ulcer of right buttock, stage 4 (3) Perineal ulcer: CODE(S): L98.499 - Non-pressure chronic ulcer of skin of other sites with unspecified severity QUALIFIERS: Non-pressure ulcer stage: unspecified non-pressure ulcer stage Qualified Code(s): L98.499 - Non-pressure chronic ulcer of skin of other sites with unspecified severity (4) Chronic osteomyelitis, pelvis: CODE(S): M86.659 - Other chronic osteomyelitis, unspecified thigh (5) Paraplegia at T4 level: CODE(S): G82.20 - Paraplegia, unspecified (6) History of tobacco use: CODE(S): Z87.891 - Personal history of nicotine dependence (7) Severe protein-calorie malnutrition: CODE(S): E43 - Unspecified severe protein-calorie malnutrition PLAN: Plan Patient was evaluated at the wound healing center today. Wound care - Silvercel (silver alginate) covered with gauze or ABD to both the left ischial ulcer and the right ischial/perineal ulcer. They have moderate amount of drainage. The left ischial tunnel drains clear, synovial fluid from his hip. Encourage nutritional supplementation with protein to help the healing process. Patient states his appetite has slightly improved since his surgery. Wound culture from 03/02/22 positive for Pseudomonas aeroginosa, Morganella morganii sp sibonii, and Corynebacterium. Due to his allergies and the the sensitivity of the cultures, patient was referred to ID, who placed him on Augmentin and Cipro, which he completed. CT on 04/08/22 of abdomen/pelvis showed: Diffuse soft tissue thickening of the perineum.? This is unchanged.? There is evidence of a bilateral scrotal hydroceles.? Marked degree of levoscoliosis of the lumbar spine.? Moderate degree of bilateral degenerative changes of both hip joints worse on the left side with erosive changes of the left femoral head and soft tissue density within the joint space.? The patient has a history of spina bifida. Will place him on Cipro for him not feeling well and since he noticed improvement being on it. Follow up 4 weeks. Call or come in sooner if have any concerns.
== END 2022-10-10 23:59 | disposition home or self-care (01) ==
LOC: WC 14:05
PROVIDERS: PCP Internal Medicine; Visit Provider Nurse Practitioner Family
DX: L89.314 Pressure ulcer of right buttock, stage 4 (principal); L89.324 Pressure ulcer of left buttock, stage 4; G82.20 Paraplegia, unspecified; L98.499 Non-pressure chronic ulcer of skin of other sites with unspecified severity; M86.68 Other chronic osteomyelitis, other site; Z79.899 Other long term (current) drug therapy; Z87.891 Personal history of nicotine dependence
CPT/HCPCS: 11043; 11046

== ENCOUNTER 2022-11-02 10:34 | Outpatient (RCR) | payer MEDICARE, MEDICAID, SELFPAY ==
[2022-10-11 00:12] VITALS: BP 98/67; PULSE 108; RESP 18; TEMP 36; BMI 19.8
[2022-11-02 10:47] VITALS: BP 109/72; PULSE 122; TEMP 36.2; BMI 19.8
--- NOTE | 2022-11-02 13:54 | PN.PCM_ITS ---
History of Present Illness Date of Service: 11/02/22 Chief Complaint: Bilateral ischial pressure sores, Stage IV. History of Wound: Surgery 04/08/20 - 1. Excision bleeding right ischial/perineal pressure sore, Stage IV. 2. Control of prostatic bleeding with electrocautery and Surgicel hemostat. Wound Care - Rinse ulcers with Dakin's solution and then cover Silver alginate dressing covered with gauze then top with ABD daily. Wound culture from 03/02/22 positive for Pseudomonas aeroginosa, Morganella morganii sp sibonii, and Corynebacterium. Due to his allergies and the the sensitivity of the cultures, patient was referred to ID, who placed him on Augmentin and Cipro, which he currently is on and is tolerating. Wound culture from 01/20/21 positive for Proteus mirabilis, Cornybacterium minutissium and Bacteroides fragilis. He was referred to ID for antibiotic management, which he was placed on Cefdinir, Doxycycline and Flagyl for 10 days. Patient has long standing bilateral ischial pressure sores, Stage IV, with the left side extending to the femoral head and the right side extending to the perineal area and the prostate. Surgery would entail quite extensive excision with amputations at a tertiary center. Patient does not want to pursue any heroic surgeries at this time since it is not a guarantee his pressure issues won't recur. With aggressive amputations, his already tenuous balance would be even more disrupted. At the present time, we are providing conservative care on a monthly basis. He stated his right leg gets in the way when transferring. He underwent a right AKA on 06/12/20 in [place]. Wound culture was done on 04/22/20. It showed Morganella morganii, Pseudomonas aeroginosa, Streptococcus group F, and Bacteroides fragilis. He has a lot of antibiotic allergies. His only real option is IV antibiotics. Dr. Chester also saw him at the Wound Center and felt the wounds were colonized and held off on antibiotics at this time. If his clinical situation were to change, then would re-evaluate him for IV antibiotics at that time. Wound culture from 11/01/20 was positive for MRSA, E. coli, Proteus Mirabilis. He was treated with Augmentin and doxycycline. He had a cystectomy and a partial prostatectomy by Dr. Lala at [facility] on 08/04/22. He states he is feeling better than he was before having his bladder removed. Today he denies any fever. He states that he is getting chills and sweating on his one side. He states he is having difficulty with his appetite. Progress of Wound: Left ischial ulcer cluster is stable. He continues to have synovial fluid leak from the tunnel around 2-5 o'clock. There is no odor. Right ischial ulcer wound bed is pink with thickened, callus like tissue surrounding the ulcer. Objective Data Objective Data Vital Signs: Vital Signs Temp Pulse Resp BP 97.1 F L 122 H 18 109/72 11/02/22 10:47 11/02/22 10:47 10/11/22 00:12 11/02/22 10:47 Body Mass Index (BMI) 19.8 Charges/Coding Procedures Integumentary 111xxx-113xx: 64810 Manisha musc/fascia 20 sq cm/< Add On Codes: 65058 Manisha musc/fascia add-on (x2) Debridement Note Debridement Note Wound debrided: ischial ulcer Laterality: Left Wound Grade/Stage: Stage IV Type of Debridement: Excisional debridement Anesthesia Used: 4% Lidocaine Solution Depth: Down to and including healthy tissue, in the subcutaneous layer and to muscle Percentage of wound debrided: 100 Instrument Used: 7mm curette Tissue Removed: Non viable tissue and slough into the muscle Severity: Fat Layer Exposed Amount of bleeding with debridement: Mild Bleeding Controlled with: Pressure, Compression and gauze and Silver Nitrate Patient tolerated procedure: Patient tolerated procedure well Post-Debridement Measurements and Additional Note: Post-Debridement Measurements/Treatment - Nurse 1 - General Ulcer Assessment Start: 11/02/22 10:37 Freq: Status: Active Protocol: NIKA.LOWEBENEZER Activity Type Activity Date Activity User E-sign Co-sign Detail Recorded Client Recorded Date Recorded By Document 11/02/22 10:47 SALOME [id number] 11/02/22 10:51 SALOME 11/02/22 10:47 - Today's Visit Information Type of service Follow-up Visit (Physician/[facility] ) Arrival Mode Wheelchair Patient Identification Verified (Name & Yes ) Patient Requires Transmission-Based No Precautions Safety Precautions NA Height and Weight Body Mass Index (BMI) 19.8 BMI Classification Normal Vital Signs Temperature (97.8 F-99.1 F) 97.1 F L Temperature Source Temporal Pulse Rate (60-100) 122 H Pulse Location Monitor Blood Pressure (90/60-120/80) 109/72 Blood Pressure Mean (mm Hg) 84 Source Monitor History Since Last Visit- (Skip if this is Patient's initial visit) Have you changed medications since your No last visit? Any new allergies or adverse reactions No Had a fall/change in ADL's that may No increase risk of falls Signs or symptoms of abuse and/or No neglect since last visit Have you been in the hospital since your No last visit? Has dressing in place as prescribed Yes Has compression in place as prescribed N/A Has offloadiing in place as prescribed Yes Experienced any changes in pain level or No management Pain Scale: 0-10 Numeric Is Patient Pain Free? Yes WC - Nurse 1 - General Ulcer Measurement Start: 11/02/22 10:37 Freq: Status: Active Protocol: Activity Type Activity Date Activity User E-sign Co-sign Detail Recorded Client Recorded Date Recorded By Document 11/02/22 10:47 SALOME [id number] 11/02/22 10:51 SALOME 11/02/22 10:47 Wound Center Nurse 1 #8 L Ischium cluster -Combined with other wound No -Current Size (cm) - Length 6.5 -Current Size (cm) - Width 4 -Current Size (cm) - Depth 0.1 -Total Square Cm 26.0 -Photo Taken Yes -Tunneling No -Undermining/Tunneling No -Circular Undermining No -Change in Wound Grade/Stage No -Exudate Amt Medium -Exudate Type Serosanguineous -Wound Margin Distinct, Outline Attached -Granulation Amt Medium (34-66%) -Granulation Quality Cushman -Slough/Fibrin Yes -Necrosis Amt Small (1-33%) -Necrotic Tissue Type Adherent Slough -Structure Exposed N/A -Texture (Steffi-wound Skin Appearance) No Abnormality, Assessed -Moisture (Steffi-wound Skin Appearance) No Abnormality, Assessed -Color (Steffi-wound Skin Appearance) No Abnormality, Assessed -Temperature (Steffi-wound Skin No Abnormality Appearance) (Pt Warm) -Tenderness on Palpation (Steffi-wound No Skin Appearance) -Ulcer Cleansing Rinsed/ Irrigated with Saline -Foul Odor after Cleansing No -Wound Comment(s) areas of healing within the measurement #7 R Ischium cluster -Combined with other wound No -Current Size (cm) - Length 5 -Current Size (cm) - Width 2 -Current Size (cm) - Depth 0.1 -Total Square Cm 10 -Date of Last Picture (Recall this 11/02/22 field) -Photo Taken Yes -Tunneling No -Undermining/Tunneling No -Circular Undermining No -Change in Wound Grade/Stage No -Exudate Amt Medium -Exudate Type Serosanguineous -Wound Margin Distinct, Outline Attached -Granulation Amt Large (67-100%) -Granulation Quality Cushman -Slough/Fibrin Yes -Necrosis Amt Small (1-33%) -Necrotic Tissue Type Adherent Slough -Structure Exposed N/A -Texture (Steffi-wound Skin Appearance) No Abnormality, Assessed -Moisture (Steffi-wound Skin Appearance) No Abnormality, Assessed -Color (Steffi-wound Skin Appearance) No Abnormality, Assessed -Temperature (Steffi-wound Skin No Abnormality Appearance) (Pt Warm) -Tenderness on Palpation (Steffi-wound No Skin Appearance) -Ulcer Cleansing Rinsed/ Irrigated with Saline -Foul Odor after Cleansing No WC - Nurse 2 - General Ulcer CM Notes Start: 11/02/22 10:37 Freq: Status: Active Protocol: Activity Type Activity Date Activity User E-sign Co-sign Detail Recorded Client Recorded Date Recorded By Document 11/02/22 11:01 DEBORAH [id number] 11/02/22 11:13 DEBORAH Edit Result 11/02/22 11:01 DEBORAH (1) [id number] 11/02/22 11:36 DEBORAH (1) #8 L Ischium cluster - Bleeding Controlled with Pressure => Pressure,Silver => Nitrate,Chemical => Cauterization ($) 11/02/22 11:01 Wound Center Nurse 2 #8 L Ischium cluster -Time 11:02 -Correct Patient Yes -Correct Side, Site, Position Yes -Correct Procedure Yes -Procedure Performed Yes -Type of Procedure Debridement -Clinical Debridement Muscle / Fascia -Tissue Removed Muscle -Post Debridement (cm) - Length 7.0 -Post Debridement (cm) - Width 6.8 -Post Debridement (cm) - Depth 1.3 -Total Square (Post) (cm) 47.60 -Area of Debridement (cm) - Length 7.0 -Area of Debridement (cm) - Width 6.8 -Total Square (Area) (cm) 47.60 -Tunneling No -Undermining/Tunneling No -Circular Undermining No -Wound/Ulcer Outcome Not Healed -Ulcer Cleansing Rinsed/ Irrigated with Saline -Foul Odor after Cleansing No -Bioengineered Tissue No -Bleeding Controlled with Pressure,Silver Nitrate, Chemical Cauterization ( $) -Treatment Response Procedure Tolerated Well -Offloading No -Pressure Reduction Wheelchair cushion -Debridement - Muscle / Fascia, 1st Yes 20sq cm -Debridement, Muscle/Fascia, ea addt'l 2 20sq cm or part thereof #7 R Ischium cluster -Time 11:02 -Correct Patient Yes -Correct Side, Site, Position Yes -Correct Procedure Yes -Procedure Performed Yes -Type of Procedure Debridement -Clinical Debridement Muscle / Fascia -Tissue Removed Muscle -Post Debridement (cm) - Length 0.6 -Post Debridement (cm) - Width 4.0 -Post Debridement (cm) - Depth 0.2 -Total Square (Post) (cm) 2.40 -Area of Debridement (cm) - Length 0.6 -Area of Debridement (cm) - Width 4.0 -Total Square (Area) (cm) 2.40 -Tunneling No -Undermining/Tunneling No -Circular Undermining No -Wound/Ulcer Outcome Not Healed -Ulcer Cleansing Rinsed/ Irrigated with Saline -Foul Odor after Cleansing No -Bioengineered Tissue No -Bleeding Controlled with Pressure -Treatment Response Procedure Tolerated Well -Offloading No -Pressure Reduction Wheelchair cushion -Debridement - Muscle / Fascia, 1st No 20sq cm Pain Scale: 0-10 Numeric Is Patient Pain Free? Yes WC - Nurse 3 - General Ulcer D/C NN Start: 11/02/22 10:37 Freq: Status: Active Protocol: Activity Type Activity Date Activity User E-sign Co-sign Detail Recorded Client Recorded Date Recorded By Document 11/02/22 11:25 DL [id number] 11/02/22 11:27 DL 11/02/22 11:25 Wound Care Center Nurse 3 #8 L Ischium cluster -Ulcer Cleansing Rinsed/ Irrigated with Saline -Foul Odor after Cleansing No -Primary Dressing Applied Promogran -Primary Dressing Covered/Secured with Dry Gauze, Secured with Tape -Other Covering ABD -Promogran 1 #7 R Ischium cluster -Ulcer Cleansing Rinsed/ Irrigated with Saline -Foul Odor after Cleansing No -Other Dressing promogran -Primary Dressing Covered/Secured with Dry Gauze, Secured with Tape -Other Covering ABD Treatment Response Procedure Tolerated Well Pain Scale: 0-10 Numeric Is Patient Pain Free? Yes WC - Visit Discharge Discharge Condition Stable Ambulatory Status Wheelchair Transportation Private Auto Additional Wound Wound debrided: perianal/ischial ulcer Laterality: Right Wound Grade/Stage: Stage IV Type of Debridement: Excisional debridement Anesthesia Used: 4% Lidocaine Solution Depth: Down to and including healthy tissue, in the subcutaneous layer and to muscle Percentage of wound debrided: 100 Instrument Used: 3mm curette Tissue Removed: Non viable tissue and slough Severity: Fat Layer Exposed Amount of bleeding with debridement: Mild Bleeding Controlled with: Pressure and Compression and gauze Patient tolerated procedure: Patient tolerated procedure well Assessment/Plan Assessment/Plan (1) Pressure sore of left ischium, stage 4: CODE(S): L89.324 - Pressure ulcer of left buttock, stage 4 (2) Right ischial pressure sore, stage 4: CODE(S): L89.314 - Pressure ulcer of right buttock, stage 4 (3) Perineal ulcer: CODE(S): L98.499 - Non-pressure chronic ulcer of skin of other sites with unspecified severity QUALIFIERS: Non-pressure ulcer stage: unspecified non-pressure ulcer stage Qualified Code(s): L98.499 - Non-pressure chronic ulcer of skin of other sites with unspecified severity (4) Chronic osteomyelitis, pelvis: CODE(S): M86.659 - Other chronic osteomyelitis, unspecified thigh (5) Paraplegia at T4 level: CODE(S): G82.20 - Paraplegia, unspecified (6) History of tobacco use: CODE(S): Z87.891 - Personal history of nicotine dependence (7) Severe protein-calorie malnutrition: CODE(S): E43 - Unspecified severe protein-calorie malnutrition PLAN: Plan Patient was evaluated at the wound healing center today. Wound care - Switch to Promogram that can be moistened covered with gauze or ABD to both the left ischial ulcer and the right ischial/perineal ulcer. The left ischial tunnel occasionally drains clear, synovial fluid from his hip. Encourage nutritional supplementation with protein to help the healing process. Patient states his appetite has slightly improved since his surgery. Wound culture from 03/02/22 positive for Pseudomonas aeroginosa, Morganella morganii sp sibonii, and Corynebacterium. Due to his allergies and the the sensitivity of the cultures, patient was referred to ID, who placed him on Augmentin and Cipro, which he completed. CT on 04/08/22 of abdomen/pelvis showed: Diffuse soft tissue thickening of the perineum.? This is unchanged.? There is evidence of a bilateral scrotal hydroceles.? Marked degree of levoscoliosis of the lumbar spine.? Moderate degree of bilateral degenerative changes of both hip joints worse on the left side with erosive changes of the left femoral head and soft tissue density within the joint space.? The patient has a history of spina bifida. He completed the Cipro and he states that he did feel better being on it. Follow up 4 weeks. Call or come in sooner if have any concerns.
== END 2022-11-10 23:59 | disposition home or self-care (01) ==
LOC: WC 10:34
PROVIDERS: PCP Internal Medicine; Visit Provider Nurse Practitioner Family
DX: L89.314 Pressure ulcer of right buttock, stage 4 (principal); L89.324 Pressure ulcer of left buttock, stage 4; G82.20 Paraplegia, unspecified; L98.499 Non-pressure chronic ulcer of skin of other sites with unspecified severity; M86.68 Other chronic osteomyelitis, other site; Z86.14 Personal history of Methicillin resistant Staphylococcus aureus infection; Z87.891 Personal history of nicotine dependence; Z79.899 Other long term (current) drug therapy
CPT/HCPCS: 11043; 11046; 17250

== ENCOUNTER 2022-11-30 10:43 | Outpatient (RCR) | payer MEDICARE, MEDICAID, SELFPAY ==
[2022-11-11 00:22] VITALS: BP 109/72; PULSE 122; RESP 18; TEMP 36.2; BMI 19.8
[2022-11-30 10:52] VITALS: BP 118/75; RESP 16; TEMP 36.3; BMI 19.8
--- NOTE | 2022-11-30 11:55 | PCM.WC.PN ---
History of Present Illness Date of Service: 11/30/22 Chief Complaint: Bilateral ischial pressure sores, Stage IV. History of Wound: Surgery 04/08/20 - 1. Excision bleeding right ischial/perineal pressure sore, Stage IV. 2. Control of prostatic bleeding with electrocautery and Surgicel hemostat. Wound Care - Rinse ulcers with Dakin's solution and then cover Silver alginate dressing covered with gauze then top with ABD daily. Wound culture from 03/02/22 positive for Pseudomonas aeroginosa, Morganella morganii sp sibonii, and Corynebacterium. Due to his allergies and the the sensitivity of the cultures, patient was referred to ID, who placed him on Augmentin and Cipro, which he currently is on and is tolerating. Wound culture from 01/20/21 positive for Proteus mirabilis, Cornybacterium minutissium and Bacteroides fragilis. He was referred to ID for antibiotic management, which he was placed on Cefdinir, Doxycycline and Flagyl for 10 days. Patient has long standing bilateral ischial pressure sores, Stage IV, with the left side extending to the femoral head and the right side extending to the perineal area and the prostate. Surgery would entail quite extensive excision with amputations at a tertiary center. Patient does not want to pursue any heroic surgeries at this time since it is not a guarantee his pressure issues won't recur. With aggressive amputations, his already tenuous balance would be even more disrupted. At the present time, we are providing conservative care on a monthly basis. He stated his right leg gets in the way when transferring. He underwent a right AKA on 06/12/20 in [place]. Wound culture was done on 04/22/20. It showed Morganella morganii, Pseudomonas aeroginosa, Streptococcus group F, and Bacteroides fragilis. He has a lot of antibiotic allergies. His only real option is IV antibiotics. Dr. Chester also saw him at the Wound Center and felt the wounds were colonized and held off on antibiotics at this time. If his clinical situation were to change, then would re-evaluate him for IV antibiotics at that time. Wound culture from 11/01/20 was positive for MRSA, E. coli, Proteus Mirabilis. He was treated with Augmentin and doxycycline. He had a cystectomy and a partial prostatectomy by Dr. Lala at [facility] on 08/04/22. He states he is feeling better than he was before having his bladder removed. Today he denies any fever. He states that he is getting chills and sweating on his one side. He states he is having difficulty with his appetite. Progress of Wound: Left ischial ulcer cluster is stable. He continues to have synovial fluid leak from the tunnel around 2-5 o'clock. There is no odor. Right ischial ulcer wound bed is pink with thickened, callus like tissue surrounding the ulcer. Objective Data Objective Data Vital Signs: Vital Signs Temp Pulse Resp BP O2 Del Method 97.3 F L 122 H 16 118/75 Room Air 11/30/22 10:52 11/11/22 00:22 11/30/22 10:52 11/30/22 10:52 11/30/22 10:52 Oxygen Delivery Method Room Air Body Mass Index (BMI) 19.8 Charges/Coding Procedures Integumentary 111xxx-113xx: 92182 Manisha musc/fascia 20 sq cm/< Add On Codes: 85908 Manisha musc/fascia add-on (x2) Debridement Note Debridement Note Wound debrided: ischial ulcer Laterality: Left Wound Grade/Stage: Stage IV Type of Debridement: Excisional debridement Anesthesia Used: 4% Lidocaine Solution Depth: Down to and including healthy tissue, in the subcutaneous layer and to muscle Percentage of wound debrided: 100 Instrument Used: 7mm curette Tissue Removed: Non viable tissue and slough into the muscle Severity: Fat Layer Exposed Amount of bleeding with debridement: Mild Bleeding Controlled with: Pressure, Compression and gauze and Silver Nitrate Patient tolerated procedure: Patient tolerated procedure well Post-Debridement Measurements and Additional Note: Post-Debridement Measurements/Treatment - Nurse 1 - General Ulcer Assessment Start: 11/30/22 10:52 Freq: Status: Active Protocol: NIKA.BONNY Activity Type Activity Date Activity User E-sign Co-sign Detail Recorded Client Recorded Date Recorded By Document 11/30/22 10:52 [facility] [id number] 11/30/22 10:57 [facility] 11/30/22 10:52 - Today's Visit Information Type of service Follow-up Visit (Physician/PILLOWCASE SEWER ) Arrival Mode Wheelchair Transfer Assistance Other Transfer Assist (Other) stand by Patient Identification Verified (Name & Yes ) Patient Requires Transmission-Based No Precautions Height and Weight Body Mass Index (BMI) 19.8 BMI Classification Normal Vital Signs Temperature (97.8 F-99.1 F) 97.3 F L Temperature Source Temporal Respiratory Rate (12-18) 16 Respiratory rate source Observation Oxygen Delivery Method Room Air Blood Pressure (90/60-120/80) 118/75 Blood Pressure Mean (mm Hg) 89 Source Monitor Position Sitting Blood Pressure Location Left Arm History Since Last Visit- (Skip if this is Patient's initial visit) Have you changed medications since your No last visit? Any new allergies or adverse reactions No Had a fall/change in ADL's that may No increase risk of falls Signs or symptoms of abuse and/or No neglect since last visit Have you been in the hospital since your No last visit? Has dressing in place as prescribed Yes Has compression in place as prescribed N/A Has offloadiing in place as prescribed N/A Experienced any changes in pain level or No management Left Footwear Regular Shoe Right Footwear Regular Shoe Pain Scale: 0-10 Numeric Is Patient Pain Free? Yes WC - Nurse 1 - General Ulcer Measurement Start: 11/30/22 10:52 Freq: Status: Active Protocol: Activity Type Activity Date Activity User E-sign Co-sign Detail Recorded Client Recorded Date Recorded By Document 11/30/22 10:52 [facility] [id number] 11/30/22 10:57 [facility] 11/30/22 10:52 Wound Center Nurse 1 #8 L Ischium cluster -Current Size (cm) - Length 7 -Current Size (cm) - Width 6 -Current Size (cm) - Depth 0.1 -Total Square Cm 42 -Date of Last Picture (Recall this 11/30/22 field) -Photo Taken Yes -Epithelialization None Present -Tunneling No -Undermining/Tunneling No -Circular Undermining No -Exudate Amt Small -Exudate Type Serosanguineous -Wound Margin Thickened & Rolled Under -Granulation Amt Large (67-100%) -Granulation Quality Red -Slough/Fibrin Yes -Necrosis Amt Small (1-33%) -Necrotic Tissue Type Adherent Slough -Texture (Steffi-wound Skin Appearance) Assessed, Scarring -Moisture (Steffi-wound Skin Appearance) Assessed -Color (Steffi-wound Skin Appearance) Assessed -Temperature (Steffi-wound Skin No Abnormality Appearance) (Pt Warm) -Tenderness on Palpation (Steffi-wound No Skin Appearance) -Ulcer Cleansing Rinsed/ Irrigated with Saline -Foul Odor after Cleansing No #7 R Ischium cluster -Combined with other wound No -Current Size (cm) - Length 4 -Current Size (cm) - Width 0.5 -Current Size (cm) - Depth 0.2 -Total Square Cm 2.0 -Date of Last Picture (Recall this 11/30/22 field) -Photo Taken Yes -Epithelialization None Present -Tunneling No -Undermining/Tunneling No -Circular Undermining No -Exudate Amt Medium -Exudate Type Serosanguineous -Wound Margin Thickened -Granulation Amt Medium (34-66%) -Granulation Quality Red -Slough/Fibrin Yes -Necrosis Amt Medium (34-66%) -Necrotic Tissue Type Adherent Slough -Texture (Steffi-wound Skin Appearance) Assessed, Scarring -Moisture (Steffi-wound Skin Appearance) Assessed, Maceration -Color (Steffi-wound Skin Appearance) Assessed -Temperature (Steffi-wound Skin No Abnormality Appearance) (Pt Warm) -Tenderness on Palpation (Steffi-wound No Skin Appearance) -Ulcer Cleansing Rinsed/ Irrigated with Saline -Foul Odor after Cleansing No WC - Nurse 2 - General Ulcer CM Notes Start: 11/30/22 10:52 Freq: Status: Active Protocol: Activity Type Activity Date Activity User E-sign Co-sign Detail Recorded Client Recorded Date Recorded By Document 11/30/22 11:09 DEBORAH [id number] 11/30/22 11:16 DEBORAH 11/30/22 11:09 Wound Center Nurse 2 #8 L Ischium cluster -Time 11:13 -Correct Patient Yes -Correct Side, Site, Position Yes -Correct Procedure Yes -Procedure Performed Yes -Type of Procedure Debridement -Clinical Debridement Muscle / Fascia -Tissue Removed Muscle,Fascia -Post Debridement (cm) - Length 7.0 -Post Debridement (cm) - Width 6.5 -Post Debridement (cm) - Depth 1.3 -Total Square (Post) (cm) 45.50 -Area of Debridement (cm) - Length 7.0 -Area of Debridement (cm) - Width 6.5 -Total Square (Area) (cm) 45.50 -Tunneling No -Undermining/Tunneling No -Circular Undermining No -Wound/Ulcer Outcome Not Healed -Ulcer Cleansing Rinsed/ Irrigated with Saline -Foul Odor after Cleansing No -Bioengineered Tissue No -Bleeding Controlled with Pressure -Treatment Response Procedure Tolerated Well -Offloading No -Debridement - Subq, 1st 20sq cm No -Debridement - Muscle / Fascia, 1st Yes 20sq cm -Debridement, Muscle/Fascia, ea addt'l 2 20sq cm or part thereof #7 R Ischium cluster -Time 11:14 -Correct Patient Yes -Correct Side, Site, Position Yes -Correct Procedure Yes -Procedure Performed Yes -Type of Procedure Debridement -Clinical Debridement Muscle / Fascia -Tissue Removed Muscle -Post Debridement (cm) - Length 0.5 -Post Debridement (cm) - Width 4.0 -Post Debridement (cm) - Depth 0.2 -Total Square (Post) (cm) 2.00 -Area of Debridement (cm) - Length 0.5 -Area of Debridement (cm) - Width 4.0 -Total Square (Area) (cm) 2.00 -Tunneling No -Undermining/Tunneling No -Circular Undermining No -Wound/Ulcer Outcome Not Healed -Ulcer Cleansing Rinsed/ Irrigated with Saline -Foul Odor after Cleansing No -Bioengineered Tissue No -Bleeding Controlled with Pressure -Treatment Response Procedure Tolerated Well -Offloading No -Debridement - Muscle / Fascia, 1st No 20sq cm Pain Scale: 0-10 Numeric Is Patient Pain Free? Yes - Nurse 3 - General Ulcer D/C NN Start: 11/30/22 10:52 Freq: Status: Active Protocol: Activity Type Activity Date Activity User E-sign Co-sign Detail Recorded Client Recorded Date Recorded By Document 11/30/22 11:23 ML [id number] 11/30/22 11:25 ML 11/30/22 11:23 Wound Care Center Nurse 3 #8 L Ischium cluster -Ulcer Cleansing Rinsed/ Irrigated with Saline -Foul Odor after Cleansing No -Primary Dressing Applied Promogran -Primary Dressing Covered/Secured with Dry Gauze, Secured with Tape -Promogran 1 #7 R Ischium cluster -Ulcer Cleansing Rinsed/ Irrigated with Saline -Foul Odor after Cleansing No -Primary Dressing Applied Promogran -Primary Dressing Covered/Secured with Dry Gauze, Secured with Tape -Promogran 0 Pain Scale: 0-10 Numeric Is Patient Pain Free? Yes Additional Wound Wound debrided: perianal/ischial ulcer Laterality: Right Wound Grade/Stage: Stage IV Type of Debridement: Excisional debridement Anesthesia Used: 4% Lidocaine Solution Depth: Down to and including healthy tissue, in the subcutaneous layer and to muscle Percentage of wound debrided: 100 Instrument Used: 3mm curette Tissue Removed: Non viable tissue and slough Severity: Fat Layer Exposed Amount of bleeding with debridement: Mild Bleeding Controlled with: Pressure and Compression and gauze Patient tolerated procedure: Patient tolerated procedure well Assessment/Plan Assessment/Plan (1) Pressure sore of left ischium, stage 4: CODE(S): L89.324 - Pressure ulcer of left buttock, stage 4 (2) Right ischial pressure sore, stage 4: CODE(S): L89.314 - Pressure ulcer of right buttock, stage 4 (3) Perineal ulcer: CODE(S): L98.499 - Non-pressure chronic ulcer of skin of other sites with unspecified severity QUALIFIERS: Non-pressure ulcer stage: unspecified non-pressure ulcer stage Qualified Code(s): L98.499 - Non-pressure chronic ulcer of skin of other sites with unspecified severity (4) Chronic osteomyelitis, pelvis: CODE(S): M86.659 - Other chronic osteomyelitis, unspecified thigh (5) Paraplegia at T4 level: CODE(S): G82.20 - Paraplegia, unspecified (6) History of tobacco use: CODE(S): Z87.891 - Personal history of nicotine dependence (7) Severe protein-calorie malnutrition: CODE(S): E43 - Unspecified severe protein-calorie malnutrition PLAN: Plan Patient was evaluated at the wound healing center today. Wound care - Promogran that can be moistened covered with gauze or ABD daily to both the left ischial ulcer and the right ischial/perineal ulcer. The left ischial tunnel occasionally drains clear, synovial fluid from his hip. Encourage nutritional supplementation with protein to help the healing process. Patient states his appetite has slightly improved since his surgery. Wound culture from 03/02/22 positive for Pseudomonas aeroginosa, Morganella morganii sp sibonii, and Corynebacterium. Due to his allergies and the the sensitivity of the cultures, patient was referred to ID, who placed him on Augmentin and Cipro, which he completed. CT on 04/08/22 of abdomen/pelvis showed: Diffuse soft tissue thickening of the perineum.? This is unchanged.? There is evidence of a bilateral scrotal hydroceles.? Marked degree of levoscoliosis of the lumbar spine.? Moderate degree of bilateral degenerative changes of both hip joints worse on the left side with erosive changes of the left femoral head and soft tissue density within the joint space.? The patient has a history of spina bifida. He completed the Cipro and he states that he did feel better being on it. Follow up 4 weeks. Call or come in sooner if have any concerns.
== END 2022-12-08 23:59 | disposition home or self-care (01) ==
LOC: WC 10:43
PROVIDERS: PCP Internal Medicine; Visit Provider Nurse Practitioner Family
DX: L89.314 Pressure ulcer of right buttock, stage 4 (principal); L89.324 Pressure ulcer of left buttock, stage 4; G82.20 Paraplegia, unspecified; L98.499 Non-pressure chronic ulcer of skin of other sites with unspecified severity; M86.68 Other chronic osteomyelitis, other site; Z79.899 Other long term (current) drug therapy; Z87.891 Personal history of nicotine dependence; Z86.14 Personal history of Methicillin resistant Staphylococcus aureus infection
CPT/HCPCS: 11043; 11046

== ENCOUNTER 2022-11-30 11:42 | Observation (INO) | payer MEDICARE, MEDICAID, SELFPAY ==
[2022-11-30 11:43] VITALS: BP 125/69; PULSE 109; RESP 16; TEMP 36.5; O2SAT 98
[2022-11-30 12:20] VITALS: BMI 14.7
[2022-11-30 12:45] LABS: Absolute Lymphocyte Count 1.23 X10^3/uL (0.83-4.51); Absolute Neutrophil Count 8.7 X10^3/uL (2.0-7.7); Basophil# 0.06 X10^3/uL; Basophil% 0.5 % (0-1); Eosinophils% 1.7 % (0-5); Hematocrit 30.8 % (40-54); Hemoglobin 8.9 g/dL (13.0-16.5); Lymphocyte # 1.23 X10^3/ul (0.83-4.51); Lymphocyte % 10.7 % (19-41); Mean Corp Hgb Conc 28.9 g/dL (32-36); Mean Corpuscular Hgb 23.4 pg (27.0-32.0); Mean Corpuscular Volume 81.1 fL (80-94); Mean Platelet Vol. 8.9 fl (6.2-12.0); Monocyte# 1.23 X10^3/uL; Monocyte% 10.7 % (0-10); NRBC Flagged by Analyzer 0 % (0-5); Neutrophil # 8.69 X10^3/uL (2.7-7.7); Neutrophil % 75.9 % (47-70); Platelet Count 524 K/mm3 (150-450); RBC Distribution Width CV 15.3 % (11.6-14.6); RBC Distribution Width SD 45.2 fl (35.1-43.9); White Blood Count 11.5 K/mm3 (4.4-11.0)
[2022-11-30 12:59] LABS: Anion Gap 7 (5-15); BUN 23 mg/dL (7-18); BUN/Creat Ratio 38.5 RATIO (10-20); Calcium,Total 9.3 mg/dL (8.5-10.1); Chloride 105 mmol/L (98-107); EST Glomerular Filtration Rate 149 mL/min (>60); Est Glom Filt Rate - Afr Amer 181 mL/min (>60); Estimated Creatinine Clearance 91.49 ml/min; Glucose 113 mg/dL (74-106); Potassium 4.4 mmol/L (3.5-5.1); Sodium Level 138 mmol/L (136-145)
[2022-11-30 13:14] LABS: Lactic Acid 3.1 mmol/L (0.4-1.9)
--- NOTE | 2022-11-30 13:20 | EDS_ITS ---
HPI History of Present Illness Chief Complaint: Complaint Detail of Chief Complaint: Subjective fever, chills, diaphoresis cloudy urine Informant: patient Onset/Context/Timing Onset: Today Context: Sudden Onset Timing: Intermittent Quality: Chills, subjective fever Location: Cloudy urine, Current Severity: Mild Maximum Severity: Moderate Worsened by: Presumed urinary tract infection Relieved by: Nothing Associated Symptoms Associated Symptoms: Per HPI chief complaint Narrative Narrative: Patient is a 57-year-old male status post traumatic injury resulting in above knee amputation left lower extremity and right hip amputation. He has a urostomy in place. He states they normally do not check urine since it is contaminated. He states his urine is not normally cloudy. He states he does not feel well. He denies headache, visual, ocular auditory symptoms. He denies ear pain or discharge from his ears. He denies rhinorrhea, congestion, postnasal drainage and sore throat. He denies cough or shortness of breath. He denies chest discomfort. He denies abdominal discomfort. He states his bladder has been resected. Prior similar symptoms: Yes Recent Illness/Hospitalization: No PFSH PFS Medical History Above-knee amputation of right lower extremity Alcohol use Anxiety Bacteremia Bleeding from left hip wound Cardiology follow-up encounter Chronic osteomyelitis, pelvis Crohn's disease Difficulty transferring location Former smoker Gastric reflux Heart murmur Hematuria History of back problems History of blood clots History of blood transfusion History of echocardiogram History of fracture History of left below knee amputation History of MRSA infection History of osteomyelitis History of tobacco use History of UTI Incomplete right bundle branch block Kidney calculi Left ischial pressure sore left ischial pressure sore, stage IV Marijuana use MRSA (methicillin resistant Staphylococcus aureus) infection Nonrheumatic mitral (valve) insufficiency Nonrheumatic mitral (valve) prolapse Open wound Paraplegia at T4 level Perineal ulcer Phantom pain Prostatic hemorrhage Proteus infection Pseudomonas aeruginosa infection Rectal abnormality Recurrent infections Right ischial pressure sore, stage 4 Scoliosis Severe protein-calorie malnutrition Stomach ulcer Urinary tract infection Uses wheelchair Wears glasses Weight loss Home Medications pantoprazole 40 mg tablet,delayed release (Protonix) 40 mg PO DAILY 06/03/22 [History Last Taken Unknown] mesalamine 4 gram/60 mL enema 4 g (60 mL) MT QHS #1,680 mL 07/17/22 [Rx Last Taken Unknown] ciprofloxacin HCl 500 mg tablet (Cipro) 500 mg PO Q12H 14 days #28 tabs 10/06/22 [Rx Last Taken Unknown] Allergy/AdvReac Type Severity Reaction Status Date / Time cephalexin monohydrate Allergy Itching Verified 10/16/22 10:27 [From Keflex] latex Allergy ONLY IF Verified 10/16/22 10:27 [employer] nitrofurantoin Allergy Hives Verified 10/16/22 10:27 [From Macrobid] nitrofurantoin Allergy Hives Verified 10/16/22 10:27 macrocrystalline [From Macrobid] Quinolones Allergy Hives Verified 10/16/22 10:27 sulfamethoxazole Allergy Hives Verified 10/16/22 10:27 Family History Unknown Breast cancer Surgical History H/O ureteroileostomy History of left below knee amputation Hx of above knee amputation Hx of colonoscopy Social History household members: significant other Smoking Status: Former smoker alcohol intake: current alcohol intake frequency: 3 or more drinks per day Alcohol type: beer substance use type: marijuana ROS ROS ED Constitutional Constitutional ED: Reports chills, fever(s), subjective and sweats; Denies weight loss Eyes Eyes: Denies blurry vision, change in vision or diplopia ENT ENT ED: Denies ear pain, rhinorrhea or sore throat Cardiovascular Cardiovascular: Denies chest pain, orthopnea, palpitations, paroxysmal nocturnal dyspnea or racing heartbeat Respiratory/Chest Respiratory/Chest: Reports dyspnea; Denies cough, dyspnea on exertion, orthopnea or paroxysmal nocturnal dyspnea Gastrointestinal Gastrointestinal: Reports nausea; Denies abdominal pain, diarrhea, melena or vomiting Genitourinary Genitourinary ED: Reports other Details: Urine appears cloudy. ; Denies dysuria, hematuria or urinary frequency Musculoskeletal Musculoskeletal: Denies arthralgias, back pain, myalgias or neck pain Integumentary Denies rash Neurologic Neurologic: Reports weakness; Denies paresthesias Endocrine Endocrinology: Denies cold intolerance or heat intolerance Hematologic/Lymphatic Hematologic/Lymphatic: Reports systems reviewed and no addt'l complaints, except as documented EXAM Physical Exam Const Vital Signs: 11/30/22 11:43 Temperature 97.7 F L Temperature Source Temporal Pulse Rate 109 H Respiratory Rate 16 Blood Pressure 125/69 H Blood Pressure Mean 87 Pulse Ox 98 Oxygen Delivery Method Room Air Positive well nourished and well developed Constitutional Narrative: Patient is tachypneic. There is use of accessory muscles and spite of what the triage nurse documented. General Appearance ED: well developed and diaphoretic; Negative for cyanotic or NAD HEENT Reports dry mucous membranes HEENT Narrative: Head is atraumatic normocephalic. Ears normal. Nares patent. Uvula midline. Posterior pharynx is normal. Mouth ED: Yes dry mucous membranes Mouth: dry mucous membranes Eyes PERRL and EOMs intact bilaterally General Eye ED: Negative for pale conjunctiva or scleral icterus Neck no lymphadenopathy, supple and no JVD Chest Wall inspection of chest normal and palpation of chest normal Resp No normal respiratory effort and clear to auscultation bilaterally Cardio regular rhythm, S1 normal heart sound, S2 normal heart sound and no murmurs GI normal to inspection, nondistended, normoactive bowel sounds, non-tender, non- distended and no masses; Negative for hepatosplenomegaly GI Narrative: Urostomy noted left lower quadrant. Palpation: soft Back/Spine no CVA tenderness Back/Spine Narrative: Chronic back pain due to scoliosis Thoracic Spine / Upper Back: thoracic spinal tenderness Lumbar Spine / Lower Back: lumbar spinal tenderness Extremity Extremity Narrative: Bilateral lower extremity amputation, traumatic and remote Neuro oriented x3, CN's II-XII intact bilaterally and no sensory deficits noted Sensorium / Orientation: alert Psych mental status grossly normal Skin no rashes or lesions noted, no wounds and No skin turgor normal General Skin Exam: Negative for elasticity normal or jaundice Sepsis Attestation Date exam was performed: 11/30/22 Time exam was performed: 13:10 Possible Source of Sepsis: Genitourinary Sepsis Organ Dysfunction Criteria Present: Lactic Acid > 2 mmol/L MDM MDM MDM Narrative Medical decision making narrative: Patient presents with infectious symptoms. In light of his urine being cloudy and prior urinary tract infections that grew Pseudomonas, Proteus and other organisms we will obtain CBC, electrolyte panel and lactate. Blood cultures were obtained as well since he planes of subjective fever with rigors. Based on prior cultures he was treated with meropenem. This was after discussion with pharmacist because of reported allergies. Urine culture was obtained to determine organisms and sensitivity. Patient to be admitted. Spoke with Dr. Gomez. He asked if a urologist is required. I informed him that based on my medical opinion 1 is not since there is no concern for obstructing ureteral stone. He informed me that he will see patient and determine if he needs to be transferred. Time of addendum 1333 Patient was excepted by the hospitalist. Admission was placed. Hospitalist is ordering a CAT scan with IV contrast. Apparently he had pyelonephritis with similar presentation in the past that was diagnosed on CAT scan. Lab Data Attestation: I reviewed the patient's lab results. Lab results narrative: White count is elevated. He is anemic with an H&H of 8.9 and 30.8. Basic metabolic panel is remarkable elevated BUN to creatinine ratio of 39:1. Lactate elevated 3.1. Labs: Laboratory Results - last 24 hr 11/30/22 11/30/22 11/30/22 12:35 12:35 12:35 WBC 11.5 H RBC 3.80 L Hgb 8.9 L Hct 30.8 L MCV 81.1 MCH 23.4 L MCHC 28.9 L RDW Std Deviation 45.2 H RDW Coeff of Morteza 15.3 H Plt Count 524 H MPV 8.9 Immature Gran % (Auto) 0.500 Neut % (Auto) 75.9 H Lymph % (Auto) 10.7 L [place] % (Auto) 10.7 H Eos % (Auto) 1.7 Baso % (Auto) 0.5 Absolute Neuts (auto) 8.7 H Absolute Lymphs (auto) 1.23 Nucleated RBC % 0 Sodium 138 Potassium 4.4 Chloride 105 Carbon Dioxide 26.0 Anion Gap 7 BUN 23 H Creatinine 0.60 L Estim Creat Clear Calc 91.49 Est GFR (MDRD) Af Amer 181 Est GFR (MDRD) Non-Af 149 BUN/Creatinine Ratio 38.5 H Glucose 113 H Lactic Acid 3.1 H* Calcium 9.3 Rhythm Strip Rhythm Strip: Sinus Tach Rate: 110 Ectopy: None Discharge Plan Triage Chief Complaint: Complaint ED Provider: Dejesus,Carmelo Dx/Rx/DC Orders Clinical Impression: Urinary tract infection, Sinus tachycardia, Acidosis, lactic, Acute prerenal azotemia, Anemia, unspecified Prescriptions: No Action mesalamine 4 gram/60 mL enema 4 g MT QHS Qty: 1680 0RF pantoprazole [Protonix] 40 mg tablet,delayed release (DR/EC) 40 mg PO DAILY Rx Instructions: Take two times a day for eight weeks then once a day for eight weeks. ciprofloxacin HCl [Cipro] 500 mg tablet 500 mg PO Q12H 14 Days Qty: 28 0RF Primary Care Provider: Rayo Jose Referrals: Rayo Jose MD [Primary Care Provider] - Disposition Disposition: Acute Care Hospital [facility]
[2022-11-30] MEDS: Acetaminophen 325 MG Tablet 1000 MG PO (13:44)
--- NOTE | 2022-11-30 13:45 | CT_ITS ---
STUDY: CT ABDOMEN AND PELVIS WITH CONTRAST REASON FOR EXAM: Male, 57 years old. Suspected pyelonephritis RADIATION DOSAGE (If Supplied By Facility): CTDIvol = ( 9.62 ) mGy, DLP = ( 423.69 ) mGycm TECHNIQUE: Transaxial images were obtained from the dome of the diaphragm to the symphysis pubis without oral contrast. IV 100mL Isovue-300 was administered. Sagittal and coronal images were reconstructed. Individualized dose optimization techniques were used for this CT. COMPARISON: Comparison is made with prior study dated 04/08/2022. FINDINGS: The visualized lung bases are unremarkable. The visualized portions of the heart are within normal limits. Normal liver. Normal gallbladder and extrahepatic biliary system. Normal spleen. Normal pancreas. Normal bilateral adrenal glands. Normal right kidney. Stable 1 cm cyst in the anterior lateral aspect of the left kidney. Normal visualized stomach. Normal small intestine. Normal colon. The appendix is visualized and appears normal. Normal abdominal aorta. Normal inferior vena cava. Normal retroperitoneum. Stable bladder diverticulum along the right side of the urinary bladder. Diffuse soft tissue thickening in the region of the perineum. This extends to the skin surface. Spina bifida. Marked degree of dextroscoliosis of the thoracic spine and levoscoliosis of the lumbar spine. Stable destruction of the proximal aspect of the left femur and femoral head. CT/Abdomen/Pelvis WITH Contrast IMPRESSION: Stable examination. Electronically Signed: Jay Leigh MD at 14:41 EST ,
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
[2022-11-30 14:19] LABS: Squamous Epithelial Cells - UA 0 SEEN /hpf (0-5)
[2022-11-30 14:23] LABS: Color, Urine Yellow (Yellow); Glucose, Dipstick Normal (Normal); Ketone-Dipstick Negative (Negative); Leukocyte Esterase-Dipstick 25 /ul (Negative); Nitrite-Dipstick Positive (Negative); Occult Blood-Urine 10 /ul (Negative); Protein-Dipstick 15 mg/dl (Negative); Urine Bilirubin Dipstick Negative (Negative); Urine Clarity Sl. Cloudy (Clear); Urine Urobilinogen Normal (Normal)
[2022-11-30 14:36] LABS: Bacteria 2+ /hpf (None Seen); Mucous, Urine 1+ /hpf (<or=2+); Red Blood Cells-Urine 0-5 SEEN /hpf (0-5); Triple Phosphate Crystals Ur 2+ /hpf (<or=1+); White Blood Cells 0-5 SEEN /hpf (0-5)
[2022-11-30 14:41] LABS: AST(SGOT) 18 U/L (15-37); Alanine Aminotransfer ALT/SGPT 16 U/L (16-61); Albumin, Serum 2.4 g/dL (3.2-5.0); Alkaline Phosphatase 134 U/L (45-117); Bilirubin, Direct 0.06 mg/dL (0.00-0.30); Globulin 4.8 g/dL (2.2-4.2); Magnesium 1.8 mg/dL (1.6-2.6); Phosphorus 2.9 mg/dL (2.5-4.9); Protein, Total 7.2 g/dL (6.4-8.2)
[2022-11-30 15:10] LABS: International Normalized Ratio 1.1; Prothrombin Time (Protime)PT. 14.2 SECONDS (11.7-14.9)
[2022-11-30 16:16] VITALS: BP 108/61; PULSE 81; RESP 18; TEMP 37; O2SAT 97
[2022-11-30 16:43] LABS: Reflex Lactate? Y
[2022-11-30 17:30] VITALS: BMI 14.3
[2022-11-30 17:41] LABS: Lactic Acid 0.8 mmol/L (0.4-1.9)
[2022-11-30 17:47] VITALS: BP 152/56; PULSE 94; RESP 16; TEMP 37.1; O2SAT 100
[2022-11-30] MEDS: Lactated Ringers 500 ML 999 ML IV (17:54)
[2022-11-30] MEDS: 0.9% Normal Saline 1,000 ML 100 ML IV (19:54)
[2022-11-30] MEDS: Acetaminophen 325 MG Tablet 650 MG PO (19:58)
[2022-11-30 22:06] VITALS: O2SAT 98
--- NOTE | 2022-11-30 22:06 | CPS ---
Offered PEP and I.S. to pt, he said he doesn't need them. Please don't open them per pt.
[2022-11-30] MEDS: oxyCODONE 5 MG Tablet PO (23:11)
[2022-11-30 23:20] VITALS: BP 144/76; PULSE 76; RESP 18; TEMP 36.6; O2SAT 98
[2022-12-01 05:05] VITALS: BP 145/51; PULSE 78; RESP 16; TEMP 36.7; O2SAT 99
[2022-12-01] MEDS: Acetaminophen 325 MG Tablet 650 MG PO (05:06)
[2022-12-01 05:55] LABS: Absolute Lymphocyte Count 0.91 X10^3/uL (0.83-4.51); Absolute Neutrophil Count 5.1 X10^3/uL (2.0-7.7); Basophil# 0.05 X10^3/uL; Basophil% 0.7 % (0-1); Eosinophil# 0.26 X10^3/uL; Eosinophils% 3.6 % (0-5); Hematocrit 26.3 % (40-54); Hemoglobin 7.8 g/dL (13.0-16.5); Lymphocyte # 0.91 X10^3/ul (0.83-4.51); Lymphocyte % 12.7 % (19-41); Mean Corp Hgb Conc 29.7 g/dL (32-36); Mean Corpuscular Hgb 23.2 pg (27.0-32.0); Mean Corpuscular Volume 78.3 fL (80-94); Mean Platelet Vol. 9.1 fl (6.2-12.0); Monocyte# 0.78 X10^3/uL; Monocyte% 10.9 % (0-10); NRBC Flagged by Analyzer 0 % (0-5); Neutrophil # 5.14 X10^3/uL (2.7-7.7); Neutrophil % 71.7 % (47-70); Platelet Count 430 K/mm3 (150-450); RBC Distribution Width CV 15.3 % (11.6-14.6); RBC Distribution Width SD 44.4 fl (35.1-43.9); Red Blood Count 3.36 M/mm3 (4.6-6.2); White Blood Count 7.2 K/mm3 (4.4-11.0)
[2022-12-01 06:00] VITALS: BMI 13.7
[2022-12-01] MEDS: oxyCODONE 5 MG Tablet PO ×2 (06:13→16:31)
[2022-12-01 06:40] LABS: Anion Gap 7 (5-15); BUN 17 mg/dL (7-18); BUN/Creat Ratio 41.8 RATIO (10-20); Calcium,Total 8.5 mg/dL (8.5-10.1); Chloride 108 mmol/L (98-107); Creatinine, Serum 0.41 mg/dL (0.70-1.30); EST Glomerular Filtration Rate 232 mL/min (>60); Est Glom Filt Rate - Afr Amer 281 mL/min (>60); Estimated Creatinine Clearance 128.42 ml/min; Glucose 96 mg/dL (74-106); Potassium 3.6 mmol/L (3.5-5.1); Sodium Level 139 mmol/L (136-145)
[2022-12-01 08:02] VITALS: O2SAT 96
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
[2022-12-01 09:31] VITALS: BP 143/62; PULSE 86; RESP 15; TEMP 36.6; O2SAT 99
[2022-12-01] MEDS: Pantoprazole Sodium 40 MG Tablet PO (09:34)
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
--- NOTE | 2022-12-01 11:18 | WOUNDNOTE ---
wound photo: right ischium
--- NOTE | 2022-12-01 11:18 | WOUNDNOTE ---
wound photo: left ischium
--- NOTE | 2022-12-01 11:45 | CASEMGMT ---
RN?CM?GERMAN TUTOR?CM?to room to meet with patient for initial transition planning/care coordination?assessment.?RN?CM?introduced self and role at [facility].? Pt voices understanding and consents to?assessment?at this time.? Pt resting in bed in no distress at this time.?Pt is paraplegic, has BLE amputations, and has urostomy. Pt is A/O at this time and answers all questions appropriately.?? Care providers, pharmacy, and demographics verified/updated at this time. PCP: Dr Jose Specialists:Jasmin Santos, [facility]--goes every Wed. Dr Sanabria-GI. Dr Hughes-urology. Dr Lala @ [facility] (either [place] or [facility], pt unsure)--urology/surgeon. Preferred Pharmacy:[facility] B[facility]ia Insurance: REGINE Painter Prescription Benefit:?Yes Living Will/HPOA:?Pt does not currently have LW/HCPOA and interested in completing. Pt states he would like his sig other, Maranda, to be primary POA and his sister, Peg Bui, to be 1st alternative agent. Wendy WILHELM, made aware. LNOK: Sig other, Maranda. Sister, Peg. Pt also has another sister who lives out of state. Living Arrangements: Lives w/sig other, Maranda, in 3-story home w/ramp entrance. [employer]. Pt is indep w/bathing/dressing self and manages his own medications. Pt and Maranda both do urostomy care. Maranda does daily wound care and completes most home mgmt tasks. Transportation:? Through pt's insurance co for medical appts. Otherwise, Maranda provides transp. DME: ?States has the following DME:?tub bench/shower chair, hospital bed, W/C. ?Pt states no need for further DME at this time.? HHC/SNF: No hx SNF. Has had HHC in the past. Pt declines need for HHC. Pt wishes to return home and states has no concerns with going home at time of discharge.? ?CM?to follow for any further discharge planning/needs.? Pt voices no further concerns/needs at this time.? Advised pt to ask for?CM?if any further questions/concerns/needs arise.? Voices understanding. PLAN:??Home w/support of sig other and continuation of wound care. Follow for possible need of IV atb's @ d/c SW to see for YVETTE Mahmood BSN?RN?CM
[2022-12-01] MEDS: 0.9% Normal Saline 1,000 ML 100 ML IV (11:58)
[2022-12-01 16:26] VITALS: BP 141/63; PULSE 79; RESP 14; TEMP 36.7; O2SAT 100
[2022-12-01] MEDS: Ondansetron 4 MG/2 ML Vial IV (19:36)
[2022-12-01 20:25] VITALS: BP 164/63; PULSE 68; RESP 17; TEMP 36.6; O2SAT 99
[2022-12-01 22:19] VITALS: BP 169/58; PULSE 76; RESP 18; TEMP 36.6; O2SAT 99
[2022-12-02] VITALS (7 sets, daily range): BP systolic 123–145; BP diastolic 56–69; PULSE 69–87; RESP 15–18; TEMP 36.7–36.8; O2SAT 93–99; BMI 13.8
[2022-12-02] MEDS: oxyCODONE 5 MG Tablet PO (00:38)
[2022-12-02 06:36] LABS: Absolute Lymphocyte Count 0.77 X10^3/uL (0.83-4.51); Basophil# 0.04 X10^3/uL; Basophil% 0.5 % (0-1); Eosinophils% 2.5 % (0-5); Hematocrit 25.3 % (40-54); Hemoglobin 7.3 g/dL (13.0-16.5); Lymphocyte # 0.77 X10^3/ul (0.83-4.51); Lymphocyte % 9.8 % (19-41); Mean Corp Hgb Conc 28.9 g/dL (32-36); Mean Corpuscular Hgb 22.5 pg (27.0-32.0); Mean Corpuscular Volume 78.1 fL (80-94); Mean Platelet Vol. 9.1 fl (6.2-12.0); Monocyte# 0.81 X10^3/uL; Monocyte% 10.3 % (0-10); NRBC Flagged by Analyzer 0 % (0-5); Neutrophil # 6.02 X10^3/uL (2.7-7.7); Neutrophil % 76.3 % (47-70); Platelet Count 428 K/mm3 (150-450); RBC Distribution Width SD 42.6 fl (35.1-43.9); Red Blood Count 3.24 M/mm3 (4.6-6.2); White Blood Count 7.9 K/mm3 (4.4-11.0)
[2022-12-02 07:16] LABS: Anion Gap 5 (5-15); BUN 13 mg/dL (7-18); BUN/Creat Ratio 38.1 RATIO (10-20); Calcium,Total 8.3 mg/dL (8.5-10.1); Chloride 105 mmol/L (98-107); Creatinine, Serum 0.34 mg/dL (0.70-1.30); EST Glomerular Filtration Rate 285 mL/min (>60); Est Glom Filt Rate - Afr Amer 345 mL/min (>60); Ferritin 37 ng/mL (26-388); Glucose 120 mg/dL (74-106); Iron 14 ug/dL (65-175); Iron Binding Capacity,Total 249 ug/dL (250-450); PERCENT IRON SATURATION 5.6 % (15.0-55.0); Potassium 3.6 mmol/L (3.5-5.1); Sodium Level 137 mmol/L (136-145)
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
[2022-12-02] MEDS: Pantoprazole Sodium 40 MG Tablet PO (10:13)
[2022-12-02] MEDS: HYDROcodone Bitartrate/Apap 5/325 Tablet PO (12:13)
--- NOTE | 2022-12-02 14:23 | CASEMGMT ---
CHOCO checked in with patient regarding completing advance directives. Patient said he isn't sure he knows addresses of everyone he will name. Patient asked if he could get a hold of SW later. CHOCO told him that is fine. Wendy Sierra CODING EDUCATORNany BLACK
[2022-12-02] MEDS: AMOXICILLIN 500 MG CAPSULE PO (14:31)
--- NOTE | 2022-12-02 14:48 | PCM.PN.ID ---
Physical Exam Narrative Feeling better, no fever, no abd pain. Const alert and no apparent distress Resp normal air movement and clear to auscultation bilaterally Cardio regular rate and regular rhythm GI soft to palpation, non-tender and non-distended Skin no rashes or lesions noted ID ID: Route of nutrition/ use of supplements: [] Nutritional Intake: [] IV Site: [] Payne Catheter: [] Assessment & Plan Assessment/Plan (1) Urinary tract infection: PLAN: Urostomy in place. UA with 0-5 wbc, but Ucx with 100k proteus, no other clear source. Has tolerated zosyn and augmentin the past. H/o resistant GNR, started on meropenem. Will narrow to po amoxicillin, ok for discharge from ID perspective with 8 more days amox. Will follow (2) Lactic acidosis:
--- NOTE | 2022-12-02 15:05 | DCINST_ITS ---
Discharge Instructions Diet Discharge Diet: No restrictions Activity Discharge Activity: Return to Normal Activity Dressing / Incision Call your doctor if you observe: Fever of 101 or Higher Follow Up Care Test Results: Test results from this visit will be discussed in further detail at your follow- up appointment, if applicable. Discharge Plan Admission Admit Date/Time: 11/30/22 14:05 Primary Reason for Your Visit: UTI Attending Provider: Alen Galindo Primary Care Provider: Rayo Jose Consulting Providers: Piero Chester ; Pantera Gomez Discharge Orders/Prescriptions Prescriptions: New amoxicillin 500 mg Capsule 500 mg PO Q8 Qty: 24 0RF hydrocodone-acetaminophen 5-325 mg Tablet 1 tab PO Q4H PRN PRN (Reason: Pain Score 4-10) 3 Days Qty: 12 0RF Continued acetaminophen 325 mg Tablet 325 mg PO Q4H Referrals / Follow Up: Rayo Jose MD [Primary Care Provider] - Within 2 Weeks Disposition Disposition (needs filled in before D/C Order can be placed): Home, Self Care
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
--- NOTE | 2022-12-02 16:29 | PHA.DC.MC ---
Pharmacy Service has performed discharge medication reconciliation and counseling for this patient. 1. AMOXICILLIN 500MG PO Q8 X 8 DAYS 2. FERROUS SULFATE 325MG PO DAILY 3. NORCO 5/325MG PO Q4H PRN PAIN Patient stated the doctor told him his antibiotic would be changed to ciprofloxacin, but I do not see an order at this time. Also counseled on ciprofloxacin in case the antibiotic is changed. The patient's discharge medication list was reviewed for discrepancies and discrepancies were resolved. Home Medications acetaminophen 325 mg tablet 325 mg PO Q4H PAIN 11/30/22 amoxicillin 500 mg capsule 500 mg PO Q8 #24 caps 12/02/22 ferrous sulfate 325 mg (65 mg iron) tablet 325 mg PO DAILY #30 tabs 12/02/22 hydrocodone-acetaminophen 5-325mg 5mg-325mg 1 tab PO Q4H PRN PRN Pain Score 4-10 3 days #12 tabs 12/02/22 The patient was counseled on the following discharge medications and changes in medications for homegoing were reviewed. The Reason for Use, instructions for use, and potential side effects were reviewed for all new medications. The patient's questions regarding all of their medications were answered. The patient was able to verbally demonstrate an understanding of their discharge medications.
== END 2022-12-02 17:50 | disposition home or self-care (01) | DRG 689 ==
LOC: ED 14:16 → PCU 17:51
PROVIDERS: Admitting Provider Internal Medicine; Emergency Provider Emergency Medicine; PCP Internal Medicine
DX: N39.0 Urinary tract infection, site not specified (principal); L89.214 Pressure ulcer of right hip, stage 4; L89.224 Pressure ulcer of left hip, stage 4; G82.20 Paraplegia, unspecified; Z93.6 Other artificial openings of urinary tract status; Z89.611 Acquired absence of right leg above knee; Z89.612 Acquired absence of left leg above knee; E43 Unspecified severe protein-calorie malnutrition; E87.20 Acidosis, unspecified; Z68.1 Body mass index [BMI] 19.9 or less, adult; D50.9 Iron deficiency anemia, unspecified; B96.4 Proteus (mirabilis) (morganii) as the cause of diseases classified elsewhere; Z66 Do not resuscitate; Z99.3 Dependence on wheelchair; Z79.899 Other long term (current) drug therapy; Z87.440 Personal history of urinary (tract) infections; Z87.891 Personal history of nicotine dependence; Z86.14 Personal history of Methicillin resistant Staphylococcus aureus infection
CPT/HCPCS: 11043; 11046; 36415; 74177; 80048; 80076; 81001; 82728; 83540; 83550; 83605; 83735; 84100; 85025; 85610; 87040; 87077; 87086; 87088; 87186; 96361; 96365; 96366; 96375; 97803; 99221; 99284; J2185; J7030; J7120; Q9967; A4216; G0378; J2405

== ENCOUNTER 2022-12-28 10:37 | Outpatient (RCR) | payer MEDICARE, MEDICAID, SELFPAY ==
[2022-12-09 00:16] VITALS: BP 118/75; PULSE 122; RESP 16; TEMP 36.3; BMI 19.8
[2022-12-28 10:52] VITALS: BP 101/60; PULSE 125; RESP 20; TEMP 36.1; BMI 19.8
--- NOTE | 2022-12-28 12:56 | PN.PCM_ITS ---
History of Present Illness Date of Service: 12/28/22 Chief Complaint: Bilateral ischial pressure sores, Stage IV. History of Wound: Surgery 04/08/20 - 1. Excision bleeding right ischial/perineal pressure sore, Stage IV. 2. Control of prostatic bleeding with electrocautery and Surgicel hemostat. Wound Care - Rinse ulcers with Dakin's solution and then cover Silver alginate dressing covered with gauze then top with ABD daily. Wound culture from 03/02/22 positive for Pseudomonas aeroginosa, Morganella morganii sp sibonii, and Corynebacterium. Due to his allergies and the the sensitivity of the cultures, patient was referred to ID, who placed him on Augmentin and Cipro, which he currently is on and is tolerating. Wound culture from 01/20/21 positive for Proteus mirabilis, Cornybacterium minutissium and Bacteroides fragilis. He was referred to ID for antibiotic management, which he was placed on Cefdinir, Doxycycline and Flagyl for 10 days. Patient has long standing bilateral ischial pressure sores, Stage IV, with the left side extending to the femoral head and the right side extending to the perineal area and the prostate. Surgery would entail quite extensive excision with amputations at a tertiary center. Patient does not want to pursue any heroic surgeries at this time since it is not a guarantee his pressure issues won't recur. With aggressive amputations, his already tenuous balance would be even more disrupted. At the present time, we are providing conservative care on a monthly basis. He stated his right leg gets in the way when transferring. He underwent a right AKA on 06/12/20 in [place]. Wound culture was done on 04/22/20. It showed Morganella morganii, Pseudomonas aeroginosa, Streptococcus group F, and Bacteroides fragilis. He has a lot of antibiotic allergies. His only real option is IV antibiotics. Dr. Chester also saw him at the Wound Center and felt the wounds were colonized and held off on antibiotics at this time. If his clinical situation were to change, then would re-evaluate him for IV antibiotics at that time. Wound culture from 11/01/20 was positive for MRSA, E. coli, Proteus Mirabilis. He was treated with Augmentin and doxycycline. He had a cystectomy and a partial prostatectomy by Dr. Lala at [facility] on 08/04/22. He states he is feeling better than he was before having his bladder removed. Today he denies any fever. He states that he is getting chills and sweating on his one side. He states he is having difficulty with his appetite. Progress of Wound: Left ischial ulcer cluster is has increased breakdown. Able to see muscle separation from the bone and there is increased depth around 9 o'clock where clear, non odorous synovial fluid is leaking. He states that his air mattress deflated last week in the middle of the night after a fuse blew and he was stuck on his left side until his nephew got home and fixed the fuse. The patient states that he has been having issue with his low air loss mattress for awhile and thinks he needs a new one, it has been 6 years since his last mattress. The right ischial ulcer is stable. Objective Data Objective Data Vital Signs: Vital Signs Temp Pulse Resp BP 96.9 F L 125 H 20 H 101/60 12/28/22 10:52 12/28/22 10:52 12/28/22 10:52 12/28/22 10:52 Body Mass Index (BMI) 19.8 Charges/Coding Procedures Integumentary 111xxx-113xx: 88169 Manisha musc/fascia 20 sq cm/< Add On Codes: 70661 Manisha musc/fascia add-on (x3) Debridement Note Debridement Note Wound debrided: ischial ulcer Laterality: Left Wound Grade/Stage: Stage IV Type of Debridement: Excisional debridement Anesthesia Used: 4% Lidocaine Solution Depth: Down to and including healthy tissue, in the subcutaneous layer and to muscle Percentage of wound debrided: 100 Instrument Used: 7mm curette Tissue Removed: Non viable tissue and slough into the muscle Severity: Fat Layer Exposed Amount of bleeding with debridement: Mild Bleeding Controlled with: Pressure, Compression and gauze and Silver Nitrate Patient tolerated procedure: Patient tolerated procedure well Post-Debridement Measurements and Additional Note: Post-Debridement Measurements/Treatment NIKA - Nurse 1 - General Ulcer Assessment Start: 12/28/22 10:52 Freq: Status: Active Protocol: WILLIAMS Activity Type Activity Date Activity User E-sign Co-sign Detail Recorded Client Recorded Date Recorded By Document 12/28/22 10:52 DL [id number] 12/28/22 10:54 DL 12/28/22 10:52 - Today's Visit Information Type of service Follow-up Visit (Physician/[facility] ) Arrival Mode Wheelchair Transfer Assist (Other) x1 Patient Identification Verified (Name & Yes ) Patient Requires Transmission-Based No Precautions Height and Weight Body Mass Index (BMI) 19.8 BMI Classification Normal Vital Signs Temperature (97.8 F-99.1 F) 96.9 F L Temperature Source Temporal Pulse Rate (60-100) 125 H Pulse Location Monitor Respiratory Rate (12-18) 20 H Respiratory rate source Observation Blood Pressure (90/60-120/80) 101/60 Blood Pressure Mean (mm Hg) 73 Source Monitor History Since Last Visit- (Skip if this is Patient's initial visit) Have you changed medications since your No last visit? Any new allergies or adverse reactions No Had a fall/change in ADL's that may No increase risk of falls Signs or symptoms of abuse and/or No neglect since last visit Have you been in the hospital since your No last visit? Has dressing in place as prescribed Yes Has compression in place as prescribed N/A Experienced any changes in pain level or No management Pain Scale: 0-10 Numeric Is Patient Pain Free? Yes - Nurse 1 - General Ulcer Measurement Start: 12/28/22 10:52 Freq: Status: Active Protocol: Activity Type Activity Date Activity User E-sign Co-sign Detail Recorded Client Recorded Date Recorded By Document 12/28/22 10:52 DL [id number] 12/28/22 10:54 DL 12/28/22 10:52 Wound Center Nurse 1 #8 L Ischium cluster -Current Size (cm) - Length 8 -Current Size (cm) - Width 7 -Current Size (cm) - Depth 0.6 -Total Square Cm 56 -Photo Taken Yes -Exudate Amt Medium -Exudate Type Serosanguineous -Wound Margin Thickened & Rolled Under -Granulation Amt Large (67-100%) -Granulation Quality [place] -Necrosis Amt Small (1-33%) -Necrotic Tissue Type Adherent Slough -Structure Exposed N/A -Texture (Steffi-wound Skin Appearance) Scarring -Moisture (Steffi-wound Skin Appearance) Maceration -Color (Steffi-wound Skin Appearance) No Abnormality -Temperature (Steffi-wound Skin No Abnormality Appearance) (Pt Warm) -Ulcer Cleansing Soap and Water -Foul Odor after Cleansing No -Anesthetic Used 5% Lidocaine Gel #7 R Ischium cluster -Current Size (cm) - Length 0.4 -Current Size (cm) - Width 3.2 -Current Size (cm) - Depth 0.2 -Total Square Cm 1.28 -Photo Taken Yes -Exudate Amt Medium -Exudate Type Serosanguineous -Wound Margin Thickened & Rolled Under -Granulation Amt Large (67-100%) -Granulation Quality [place] -Necrosis Amt Small (1-33%) -Necrotic Tissue Type Adherent Slough -Structure Exposed N/A -Texture (Steffi-wound Skin Appearance) Scarring -Moisture (Steffi-wound Skin Appearance) Maceration -Color (Steffi-wound Skin Appearance) No Abnormality -Temperature (Steffi-wound Skin No Abnormality Appearance) (Pt Warm) -Tenderness on Palpation (Steffi-wound No Skin Appearance) -Ulcer Cleansing Soap and Water -Foul Odor after Cleansing No -Anesthetic Used 5% Lidocaine Gel WC - Nurse 2 - General Ulcer CM Notes Start: 12/28/22 10:52 Freq: Status: Active Protocol: Activity Type Activity Date Activity User E-sign Co-sign Detail Recorded Client Recorded Date Recorded By Document 12/28/22 11:09 [id number] 12/28/22 11:18 DEBORAH 12/28/22 11:09 Wound Center Nurse 2 #8 L Ischium cluster -Time 11:09 -Correct Patient Yes -Correct Side, Site, Position Yes -Correct Procedure Yes -Procedure Performed Yes -Type of Procedure Debridement -Clinical Debridement Muscle / Fascia -Tissue Removed Muscle,Fascia -Post Debridement (cm) - Length 8.3 -Post Debridement (cm) - Width 7.3 -Post Debridement (cm) - Depth 2.0 -Total Square (Post) (cm) 60.59 -Area of Debridement (cm) - Length 8.3 -Area of Debridement (cm) - Width 7.3 -Total Square (Area) (cm) 60.59 -Tunneling No -Undermining/Tunneling No -Circular Undermining No -Wound/Ulcer Outcome Not Healed -Ulcer Cleansing Rinsed/ Irrigated with Saline -Foul Odor after Cleansing No -Bioengineered Tissue No -Bleeding Controlled with Pressure -Treatment Response Procedure Tolerated Well -Offloading No -Pressure Reduction Wheelchair cushion -Debridement - Muscle / Fascia, 1st Yes 20sq cm -Debridement, Muscle/Fascia, ea addt'l 3 20sq cm or part thereof #7 R Ischium cluster -Time 11:17 -Correct Patient Yes -Correct Side, Site, Position Yes -Correct Procedure Yes -Procedure Performed Yes -Type of Procedure Debridement -Clinical Debridement Muscle / Fascia -Tissue Removed Muscle,Fascia -Post Debridement (cm) - Length 3.6 -Post Debridement (cm) - Width 5.0 -Post Debridement (cm) - Depth 0.3 -Total Square (Post) (cm) 18.00 -Area of Debridement (cm) - Length 3.6 -Area of Debridement (cm) - Width 5.0 -Total Square (Area) (cm) 18.00 -Tunneling No -Undermining/Tunneling No -Circular Undermining No -Wound/Ulcer Outcome Not Healed -Ulcer Cleansing Rinsed/ Irrigated with Saline -Foul Odor after Cleansing No -Bioengineered Tissue No -Bleeding Controlled with Pressure -Treatment Response Procedure Tolerated Well -Offloading No -Pressure Reduction Wheelchair cushion -Debridement - Muscle / Fascia, 1st No 20sq cm Pain Scale: 0-10 Numeric Is Patient Pain Free? Yes - Nurse 3 - General Ulcer D/C NN Start: 12/28/22 10:52 Freq: Status: Active Protocol: Activity Type Activity Date Activity User E-sign Co-sign Detail Recorded Client Recorded Date Recorded By Document 12/28/22 11:32 DL [id number] 12/28/22 11:33 DL 12/28/22 11:32 Wound Care Center Nurse 3 #8 L Ischium cluster -Ulcer Cleansing Rinsed/ Irrigated with Saline -Foul Odor after Cleansing No -Other Dressing dakins -Primary Dressing Covered/Secured with Dry Gauze, Secured with Tape #7 R Ischium cluster -Ulcer Cleansing Rinsed/ Irrigated with Saline -Foul Odor after Cleansing No -Primary Dressing Applied Promogran -Primary Dressing Covered/Secured with Dry Gauze, Secured with Tape -Promogran 1 Treatment Response Procedure Tolerated Well Pain Scale: 0-10 Numeric Is Patient Pain Free? Yes WC - Visit Discharge Discharge Condition Stable Transportation Private Auto Notes: dressing applied per Sheron Thomas today in clinic Additional Wound Wound debrided: perianal/ischial ulcer Laterality: Right Wound Grade/Stage: Stage IV Type of Debridement: Excisional debridement Anesthesia Used: 4% Lidocaine Solution Depth: Down to and including healthy tissue, in the subcutaneous layer and to muscle Percentage of wound debrided: 100 Instrument Used: 3mm curette Tissue Removed: Non viable tissue and slough Severity: Fat Layer Exposed Amount of bleeding with debridement: Mild Bleeding Controlled with: Pressure and Compression and gauze Patient tolerated procedure: Patient tolerated procedure well Assessment/Plan Assessment/Plan (1) Pressure sore of left ischium, stage 4: CODE(S): L89.324 - Pressure ulcer of left buttock, stage 4 (2) Right ischial pressure sore, stage 4: CODE(S): L89.314 - Pressure ulcer of right buttock, stage 4 (3) Perineal ulcer: CODE(S): L98.499 - Non-pressure chronic ulcer of skin of other sites with unspecified severity QUALIFIERS: Non-pressure ulcer stage: unspecified non-pressure ulcer stage Qualified Code(s): L98.499 - Non-pressure chronic ulcer of skin of other sites with unspecified severity (4) Chronic osteomyelitis, pelvis: CODE(S): M86.659 - Other chronic osteomyelitis, unspecified thigh (5) Paraplegia at T4 level: CODE(S): G82.20 - Paraplegia, unspecified (6) History of tobacco use: CODE(S): Z87.891 - Personal history of nicotine dependence (7) Severe protein-calorie malnutrition: CODE(S): E43 - Unspecified severe protein-calorie malnutrition PLAN: Plan Patient was evaluated at the wound healing center today. Wound care - To the left ischial ulcer will start Dakins 0.25% moistened gauze topped with ABD/Super absorber dressing daily and prn. To the left ischial ulcer Promogran that can be moistened covered with gauze or ABD daily. Encourage nutritional supplementation with protein to help the healing process. He is having issues with his low air loss air mattress. Will order him a new one, he states it has been at least 6 years since his was replaced. Now that his left ulcer has had a significant change in the over all appearance and depth of the ulcer, will obtain a wound culture today. The change is most likely from when he had issues with his bed and had to lay on his left side for long period of time. A wound culture was obtained today, 12/28/22.? A positive culture will necessitate antibiotic therapy. Wound culture from 03/02/22 positive for Pseudomonas aeroginosa, Morganella morganii sp sibonii, and Corynebacterium. Due to his allergies and the the sensitivity of the cultures, patient was referred to ID, who placed him on Augmentin and Cipro, which he completed. He was hospitalized after his last wound center appointment for UTI. Follow up three weeks. Call or come in sooner if develop any concerns.
== END 2023-01-08 23:59 | disposition home or self-care (01) ==
LOC: WC 10:37
PROVIDERS: PCP Internal Medicine; Visit Provider Nurse Practitioner Family
DX: L89.314 Pressure ulcer of right buttock, stage 4 (principal); L89.324 Pressure ulcer of left buttock, stage 4; G82.20 Paraplegia, unspecified; Z89.611 Acquired absence of right leg above knee; L98.499 Non-pressure chronic ulcer of skin of other sites with unspecified severity; M86.68 Other chronic osteomyelitis, other site; Z79.899 Other long term (current) drug therapy; Z87.891 Personal history of nicotine dependence; Z86.14 Personal history of Methicillin resistant Staphylococcus aureus infection
CPT/HCPCS: 11043; 11046; 87070; 87075; 87077; 87186; 87205

== ENCOUNTER 2023-01-25 10:48 | Outpatient (RCR) | payer MEDICARE, MEDICAID, SELFPAY ==
[2023-01-09 01:22] VITALS: BP 101/60; PULSE 125; RESP 20; TEMP 36.1; BMI 19.8
[2023-01-25 10:58] VITALS: BP 122/64; PULSE 60; RESP 16; TEMP 35.5; BMI 19.8
--- NOTE | 2023-01-25 12:09 | PCM.WC.PN ---
History of Present Illness Date of Service: 01/25/23 Chief Complaint: Bilateral ischial pressure sores, Stage IV. History of Wound: Surgery 04/08/20 - 1. Excision bleeding right ischial/perineal pressure sore, Stage IV. 2. Control of prostatic bleeding with electrocautery and Surgicel hemostat. Wound Care - Left ischial ulcer is Dakin's 0.25% moistened gauze topped with ABD daily. Right ischial ulcer is Promogran topped with ABD daily. Wash both ulcers with soap and water at the time of the dressing change. Left ischial ulcer culture 12/28/22 positive for MRSA, Staphylococcus haemolyticus, Corynebacterium striatum, Proteus mirabilus, and Streptococcus group F. He was treated with Augmentin and Doxycycline. Wound culture from 03/02/22 positive for Pseudomonas aeroginosa, Morganella morganii sp sibonii, and Corynebacterium. Due to his allergies and the the sensitivity of the cultures, patient was referred to ID, who placed him on Augmentin and Cipro, which he currently is on and is tolerating. Wound culture from 01/20/21 positive for Proteus mirabilis, Cornybacterium minutissium and Bacteroides fragilis. He was referred to ID for antibiotic management, which he was placed on Cefdinir, Doxycycline and Flagyl for 10 days. Patient has long standing bilateral ischial pressure sores, Stage IV, with the left side extending to the femoral head and the right side extending to the perineal area and the prostate. Surgery would entail quite extensive excision with amputations at a tertiary center. Patient does not want to pursue any heroic surgeries at this time since it is not a guarantee his pressure issues won't recur. With aggressive amputations, his already tenuous balance would be even more disrupted. At the present time, we are providing conservative care on a monthly basis. He stated his right leg gets in the way when transferring. He underwent a right AKA on 06/12/20 in [place]. Wound culture was done on 04/22/20. It showed Morganella morganii, Pseudomonas aeroginosa, Streptococcus group F, and Bacteroides fragilis. He has a lot of antibiotic allergies. His only real option is IV antibiotics. Dr. Chester also saw him at the Wound Center and felt the wounds were colonized and held off on antibiotics at this time. If his clinical situation were to change, then would re-evaluate him for IV antibiotics at that time. Wound culture from 11/01/20 was positive for MRSA, E. coli, Proteus Mirabilis. He was treated with Augmentin and doxycycline. He had a cystectomy and a partial prostatectomy by Dr. Lala at [facility] on 08/04/22. He states he is feeling better than he was before having his bladder removed. Today he denies any fever, chills or nausea and vomiting. Progress of Wound: Left ischial ulcer cluster is stable compared to last visit. The drainage and odor has decreased with the treatment of antibiotics. He continues to have the tunneling. He is having difficulty finding a company that will replace his air mattress and have it covered by insurance. He states that he found one company that will cover a mattress that he states is not enough support and he has had one similar in the past that it was more uncomfortable that what he currently has. His current mattress is 6 years year old. The right ischial ulcer bed is stable with increased scar tissue around the edges. Patient states that he is ready to go to a tertiary center to be evaluated for his left leg to be amputated because he is never going to heal this ulcer and it continues to get worse. Objective Data Objective Data Vital Signs: Vital Signs Temp Pulse Resp BP O2 Del Method 96 F L 60 16 122/64 H Room Air 01/25/23 10:58 01/25/23 10:58 01/25/23 10:58 01/25/23 10:58 01/25/23 10:58 Oxygen Delivery Method Room Air Body Mass Index (BMI) 19.8 Charges/Coding Procedures Integumentary 111xxx-113xx: [id number] Manisha musc/fascia 20 sq cm/< Add On Codes: 37079 Manisha musc/fascia add-on (x4) Debridement Note Debridement Note Wound debrided: ischial ulcer Laterality: Left Wound Grade/Stage: Stage IV Type of Debridement: Excisional debridement Anesthesia Used: 4% Lidocaine Solution Depth: Down to and including healthy tissue, in the subcutaneous layer and to muscle Percentage of wound debrided: 100 Instrument Used: 7mm curette Tissue Removed: Non viable tissue and slough into the muscle Severity: Fat Layer Exposed Amount of bleeding with debridement: Mild Bleeding Controlled with: Pressure and Compression and gauze Patient tolerated procedure: Patient tolerated procedure well Post-Debridement Measurements and Additional Note: Post-Debridement Measurements/Treatment - Nurse 1 - General Ulcer Assessment Start: 01/25/23 10:58 Freq: Status: Active Protocol: WILLIAMS Activity Type Activity Date Activity User E-sign Co-sign Detail Recorded Client Recorded Date Recorded By Document 01/25/23 10:58 [facility] [id number] 01/25/23 11:11 [facility] 01/25/23 10:58 WC - Today's Visit Information Type of service Follow-up Visit (Physician/[employer] ) Arrival Mode Wheelchair Transfer Assistance Other Transfer Assist (Other) STAND BY Patient Identification Verified (Name & Yes ) Patient Requires Transmission-Based No Precautions Height and Weight Body Mass Index (BMI) 19.8 BMI Classification Normal Vital Signs Temperature (97.8 F-99.1 F) 96 F L Temperature Source Temporal Pulse Rate (60-100) 60 Pulse Location Monitor Respiratory Rate (12-18) 16 Respiratory rate source Observation Oxygen Delivery Method Room Air Blood Pressure (90/60-120/80) 122/64 H Blood Pressure Mean (mm Hg) 83 Source Monitor Position Sitting Blood Pressure Location Left Arm History Since Last Visit- (Skip if this is Patient's initial visit) Have you changed medications since your No last visit? Any new allergies or adverse reactions No Had a fall/change in ADL's that may No increase risk of falls Signs or symptoms of abuse and/or No neglect since last visit Have you been in the hospital since your No last visit? Has dressing in place as prescribed Yes Has compression in place as prescribed N/A Has offloadiing in place as prescribed N/A Experienced any changes in pain level or No management Pain Scale: 0-10 Numeric Is Patient Pain Free? Yes - Nurse 1 - General Ulcer Measurement Start: 01/25/23 10:58 Freq: Status: Active Protocol: Activity Type Activity Date Activity User E-sign Co-sign Detail Recorded Client Recorded Date Recorded By Document 01/25/23 10:58 [facility] [id number] 01/25/23 11:11 [facility] 01/25/23 10:58 Wound Center Nurse 1 #8 L Ischium cluster -Combined with other wound No -Current Size (cm) - Length 8.4 -Current Size (cm) - Width 8.5 -Current Size (cm) - Depth 1.6 -Total Square Cm 71.40 -Date of Last Picture (Recall this 01/25/23 field) -Photo Taken Yes -Epithelialization None Present -Tunneling No -Undermining/Tunneling No -Circular Undermining No -Exudate Amt Large -Exudate Type Serosanguineous -Wound Margin Thickened & Rolled Under -Granulation Amt Large (67-100%) -Granulation Quality Red -Slough/Fibrin Yes -Necrosis Amt Small (1-33%) -Necrotic Tissue Type Adherent Slough -Texture (Steffi-wound Skin Appearance) Assessed, Scarring -Moisture (Steffi-wound Skin Appearance) Assessed -Color (Steffi-wound Skin Appearance) Assessed -Temperature (Steffi-wound Skin No Abnormality Appearance) (Pt Warm) -Tenderness on Palpation (Steffi-wound No Skin Appearance) -Ulcer Cleansing Rinsed/ Irrigated with Saline -Foul Odor after Cleansing No #7 R Ischium cluster -Combined with other wound No -Current Size (cm) - Length 3.5 -Current Size (cm) - Width 0.3 -Current Size (cm) - Depth 0.2 -Total Square Cm 1.05 -Date of Last Picture (Recall this 01/25/23 field) -Photo Taken Yes -Epithelialization None Present -Tunneling No -Undermining/Tunneling No -Circular Undermining No -Exudate Amt Medium -Exudate Type Serosanguineous -Wound Margin Thickened -Granulation Amt Large (67-100%) -Granulation Quality Red -Slough/Fibrin Yes -Necrosis Amt Small (1-33%) -Necrotic Tissue Type Adherent Slough -Texture (Steffi-wound Skin Appearance) Assessed, Scarring -Moisture (Steffi-wound Skin Appearance) Assessed, Maceration -Color (Steffi-wound Skin Appearance) Assessed -Temperature (Steffi-wound Skin No Abnormality Appearance) (Pt Warm) -Tenderness on Palpation (Steffi-wound No Skin Appearance) -Ulcer Cleansing Rinsed/ Irrigated with Saline -Foul Odor after Cleansing No WC - Nurse 2 - General Ulcer CM Notes Start: 01/25/23 10:58 Freq: Status: Active Protocol: Activity Type Activity Date Activity User E-sign Co-sign Detail Recorded Client Recorded Date Recorded By Document 01/25/23 11:35 DEBORAH [id number] 01/25/23 11:41 JF 01/25/23 11:35 Wound Center Nurse 2 #8 L Ischium cluster -Time 11:36 -Correct Patient Yes -Correct Side, Site, Position Yes -Correct Procedure Yes -Procedure Performed Yes -Type of Procedure Debridement -Clinical Debridement Muscle / Fascia -Tissue Removed Muscle,Fascia -Post Debridement (cm) - Length 9.0 -Post Debridement (cm) - Width 8.5 -Post Debridement (cm) - Depth 2.0 -Total Square (Post) (cm) 76.50 -Area of Debridement (cm) - Length 9.0 -Area of Debridement (cm) - Width 8.5 -Total Square (Area) (cm) 76.50 -Tunneling No -Undermining/Tunneling No -Circular Undermining No -Wound/Ulcer Outcome Not Healed -Ulcer Cleansing Rinsed/ Irrigated with Saline -Foul Odor after Cleansing No -Bioengineered Tissue No -Bleeding Controlled with Pressure -Treatment Response Procedure Tolerated Well -Offloading No -Assistive Device(s) Wheelchair -Pressure Reduction Wheelchair cushion -Debridement - Muscle / Fascia, 1st Yes 20sq cm #7 R Ischium cluster -Time 11:36 -Correct Patient Yes -Correct Side, Site, Position Yes -Correct Procedure Yes -Procedure Performed Yes -Type of Procedure Debridement -Clinical Debridement Muscle / Fascia -Tissue Removed Muscle,Fascia -Post Debridement (cm) - Length 6.0 -Post Debridement (cm) - Width 1 -Post Debridement (cm) - Depth 0.2 -Total Square (Post) (cm) 6.0 -Area of Debridement (cm) - Length 6 -Area of Debridement (cm) - Width 1 -Total Square (Area) (cm) 6 -Tunneling No -Undermining/Tunneling No -Circular Undermining No -Wound/Ulcer Outcome Not Healed -Ulcer Cleansing Rinsed/ Irrigated with Saline -Foul Odor after Cleansing No -Bioengineered Tissue No -Bleeding Controlled with Pressure -Treatment Response Procedure Tolerated Well -Offloading No -Pressure Reduction Wheelchair cushion -Debridement - Muscle / Fascia, 1st No 20sq cm Pain Scale: 0-10 Numeric Is Patient Pain Free? Yes WC - Nurse 3 - General Ulcer D/C NN Start: 01/25/23 10:58 Freq: Status: Active Protocol: Activity Type Activity Date Activity User E-sign Co-sign Detail Recorded Client Recorded Date Recorded By Document 01/25/23 11:51 DL [id number] 01/25/23 11:53 DL 01/25/23 11:51 Wound Care Center Nurse 3 #8 L Ischium cluster -Ulcer Cleansing Rinsed/ Irrigated with Saline -Foul Odor after Cleansing No -Primary Dressing Applied Hysept ($) -Primary Dressing Covered/Secured with Dry Gauze, Secured with Tape -Other Covering ABD #7 R Ischium cluster -Ulcer Cleansing Rinsed/ Irrigated with Saline -Foul Odor after Cleansing No -Primary Dressing Applied Promogran -Primary Dressing Covered/Secured with Dry Gauze, Secured with Tape -Other Covering ABD -Promogran 1 Treatment Response Procedure Tolerated Well Pain Scale: 0-10 Numeric Is Patient Pain Free? Yes WC - Visit Discharge Discharge Condition Stable Ambulatory Status Wheelchair Transportation Private Auto Additional Wound Wound debrided: perianal/ischial ulcer Laterality: Right Wound Grade/Stage: Stage IV Type of Debridement: Excisional debridement Anesthesia Used: 4% Lidocaine Solution Depth: Down to and including healthy tissue, in the subcutaneous layer and to muscle Percentage of wound debrided: 100 Instrument Used: 3mm curette Tissue Removed: Non viable tissue and slough Severity: Fat Layer Exposed Amount of bleeding with debridement: Mild Bleeding Controlled with: Pressure and Compression and gauze Patient tolerated procedure: Patient tolerated procedure well Assessment/Plan Assessment/Plan (1) Pressure sore of left ischium, stage 4: CODE(S): L89.324 - Pressure ulcer of left buttock, stage 4 (2) Right ischial pressure sore, stage 4: CODE(S): L89.314 - Pressure ulcer of right buttock, stage 4 (3) Perineal ulcer: CODE(S): L98.499 - Non-pressure chronic ulcer of skin of other sites with unspecified severity QUALIFIERS: Non-pressure ulcer stage: unspecified non-pressure ulcer stage Qualified Code(s): L98.499 - Non-pressure chronic ulcer of skin of other sites with unspecified severity (4) Chronic osteomyelitis, pelvis: CODE(S): M86.659 - Other chronic osteomyelitis, unspecified thigh (5) Paraplegia at T4 level: CODE(S): G82.20 - Paraplegia, unspecified (6) History of tobacco use: CODE(S): Z87.891 - Personal history of nicotine dependence (7) Severe protein-calorie malnutrition: CODE(S): E43 - Unspecified severe protein-calorie malnutrition PLAN: Plan Patient was evaluated at the wound healing center today. Wound care - To the left ischial ulcer will start Dakins 0.25% moistened gauze topped with ABD/Super absorber dressing daily and prn. To the left ischial ulcer Promogran that can be moistened covered with gauze or ABD daily. Wash both ulcers with soap and water at the time of the dressing changes. Encourage nutritional supplementation with protein to help the healing process. He is having issues with his low air loss air mattress. Order placed for a new one, he states it has been at least 6 years since his was replaced. He is having difficulty finding someplace to cover the type of mattress that he currently has. He has only found one place to cover a mattress but it not like the one he has and he states he has has one similar to the one covered in the past and it is very uncomfortable and doesn't give good support. Left ischial wound culture obtained 12/28/22 which was positive MRSA, Staphylococcus haemolyticus, Corynebacterium striatum, Proteus mirabilis, Streptococcus group F. He was treated with Augmentin and Doxycycline. After lengthy discussion with the patient about his left ischial ulcer that had increased compromise several weeks ago and is not showing much improvement, he has decided he would benefit from from possibly having his left leg amputated. This is something that Dr. Urban does not feel should be done here at [place], so will refer patient to a tertiary center such as [facility] for further evaluation. Follow up three weeks. Call or come in sooner if develop any concerns.
== END 2023-02-07 23:59 | disposition home or self-care (01) ==
LOC: WC 10:48
PROVIDERS: PCP Internal Medicine; Visit Provider Nurse Practitioner Family
DX: L89.314 Pressure ulcer of right buttock, stage 4 (principal); L89.324 Pressure ulcer of left buttock, stage 4; G82.20 Paraplegia, unspecified; Z89.611 Acquired absence of right leg above knee; L98.499 Non-pressure chronic ulcer of skin of other sites with unspecified severity; M86.68 Other chronic osteomyelitis, other site; Z87.891 Personal history of nicotine dependence; Z90.6 Acquired absence of other parts of urinary tract; Z90.79 Acquired absence of other genital organ(s)
CPT/HCPCS: 11043; 11046

== ENCOUNTER 2023-02-15 11:06 | Outpatient (RCR) | payer MEDICARE, MEDICAID, SELFPAY ==
[2023-02-08 00:26] VITALS: BP 122/64; PULSE 60; RESP 16; TEMP 35.5; BMI 19.8
[2023-02-15 11:02] VITALS: BP 137/70; PULSE 112; RESP 20; TEMP 36.7; BMI 19.8
--- NOTE | 2023-02-15 13:35 | PN.PCM_ITS ---
History of Present Illness Date of Service: 02/15/23 Chief Complaint: Bilateral ischial pressure sores, Stage IV. History of Wound: Surgery 04/08/20 - 1. Excision bleeding right ischial/perineal pressure sore, Stage IV. 2. Control of prostatic bleeding with electrocautery and Surgicel hemostat. Wound Care - Left ischial ulcer is Dakin's 0.25% moistened gauze topped with ABD daily. Right ischial ulcer is Promogran topped with ABD daily. Wash both ulcers with soap and water at the time of the dressing change. Left ischial ulcer culture 12/28/22 positive for MRSA, Staphylococcus haemolyticus, Corynebacterium striatum, Proteus mirabilus, and Streptococcus group F. He was treated with Augmentin and Doxycycline. Wound culture from 03/02/22 positive for Pseudomonas aeroginosa, Morganella morganii sp sibonii, and Corynebacterium. Due to his allergies and the the sensitivity of the cultures, patient was referred to ID, who placed him on Augmentin and Cipro, which he currently is on and is tolerating. Wound culture from 01/20/21 positive for Proteus mirabilis, Cornybacterium minut issium and Bacteroides fragilis. He was referred to ID for antibiotic management, which he was placed on Cefdinir, Doxycycline and Flagyl for 10 days. Patient has long standing bilateral ischial pressure sores, Stage IV, with the left side extending to the femoral head and the right side extending to the perineal area and the prostate. Surgery would entail quite extensive excision with amputations at a tertiary center. Patient does not want to pursue any heroic surgeries at this time since it is not a guarantee his pressure issues won't recur. With aggressive amputations, his already tenuous balance would be even more disrupted. At the present time, we are providing conservative care on a monthly basis. He stated his right leg gets in the way when transferring. He underwent a right AKA on 06/12/20 in [facility]. Wound culture was done on 04/22/20. It showed Morganella morganii, Pseudomonas aeroginosa, Streptococcus group F, and Bacteroides fragilis. He has a lot of antibiotic allergies. His only real option is IV antibiotics. Dr. Chester also saw him at the Wound Center and felt the wounds were colonized and held off on antibiotics at this time. If his clinical situation were to change, then would re-evaluate him for IV antibiotics at that time. Wound culture from 11/01/20 was positive for MRSA, E. coli, Proteus Mirabilis. He was treated with Augmentin and doxycycline. He had a cystectomy and a partial prostatectomy by Dr. Lala at [facility] on 08/04/22. He states he is feeling better than he was before having his bladder removed. Today he denies any fever, chills or nausea and vomiting. Progress of Wound: Left ischial ulcer cluster is stable. It continues to have crevices with significant depth/tunneling. He has clear, non odorous drainage that is believed to be coming from his left hip joint, it occurs when he moves in a certain way. This is not a new occurrence. Steffi wound is stable. Right ischial is stable with increased scar tissue around the edges. Patient states that he is ready to go to a tertiary center to be evaluated for his left leg to be amputated because he is never going to heal his left ischial ulcer and it continues to get worse. He would like to be referred to [facility]. Objective Data Objective Data Vital Signs: Vital Signs Temp Pulse Resp BP 98.1 F 112 H 20 H 137/70 H 02/15/23 11:02 02/15/23 11:02 02/15/23 11:02 02/15/23 11:02 Body Mass Index (BMI) 19.8 Charges/Coding Procedures Integumentary 111xxx-113xx: 21624 Manisha musc/fascia 20 sq cm/< Add On Codes: 50610 Manisha musc/fascia add-on (x3) Debridement Note Debridement Note Wound debrided: ischial ulcer Laterality: Left Wound Grade/Stage: Stage IV Type of Debridement: Excisional debridement Anesthesia Used: 4% Lidocaine Solution Depth: Down to and including healthy tissue, in the subcutaneous layer and to muscle Percentage of wound debrided: 100 Instrument Used: 7mm curette Tissue Removed: Non viable tissue and slough into the muscle Severity: Fat Layer Exposed Amount of bleeding with debridement: Mild Bleeding Controlled with: Pressure and Compression and gauze Patient tolerated procedure: Patient tolerated procedure well Post-Debridement Measurements and Additional Note: Post-Debridement Measurements/Treatment WC - Nurse 1 - General Ulcer Assessment Start: 02/15/23 11:02 Freq: Status: Active Protocol: WILLIAMS Activity Type Activity Date Activity User E-sign Co-sign Detail Recorded Client Recorded Date Recorded By Document 02/15/23 11:02 RADHA [id number] 02/15/23 11:09 DL 02/15/23 11:02 - Today's Visit Information Type of service Follow-up Visit (Physician/PACKAGING DESIGNER ) Arrival Mode Wheelchair Transfer Assist (Other) x1 Patient Identification Verified (Name & Yes ) Patient Requires Transmission-Based No Precautions Height and Weight Body Mass Index (BMI) 19.8 BMI Classification Normal Vital Signs Temperature (97.8 F-99.1 F) 98.1 F Temperature Source Temporal Pulse Rate (60-100) 112 H Pulse Location Monitor Respiratory Rate (12-18) 20 H Respiratory rate source Observation Blood Pressure (90/60-120/80) 137/70 H Blood Pressure Mean (mm Hg) 92 Source Monitor History Since Last Visit- (Skip if this is Patient's initial visit) Have you changed medications since your No last visit? Any new allergies or adverse reactions No Had a fall/change in ADL's that may No increase risk of falls Signs or symptoms of abuse and/or No neglect since last visit Have you been in the hospital since your No last visit? Has dressing in place as prescribed Yes Has compression in place as prescribed N/A Has offloadiing in place as prescribed Yes Experienced any changes in pain level or No management Pain Scale: 0-10 Numeric Is Patient Pain Free? Yes - Nurse 1 - General Ulcer Measurement Start: 02/15/23 11:02 Freq: Status: Active Protocol: Activity Type Activity Date Activity User E-sign Co-sign Detail Recorded Client Recorded Date Recorded By Document 02/15/23 11:02 RADHA [id number] 02/15/23 11:09 DL 02/15/23 11:02 Wound Center Nurse 1 #8 L Ischium cluster -Current Size (cm) - Length 8.4 -Current Size (cm) - Width 8 -Current Size (cm) - Depth 0.3 -Total Square Cm 67.2 -Photo Taken Yes -Exudate Amt Medium -Exudate Type Serosanguineous -Wound Margin Thickened & Rolled Under -Granulation Amt Large (67-100%) -Granulation Quality Pale,Red -Necrosis Amt Small (1-33%) -Necrotic Tissue Type Adherent Slough -Structure Exposed N/A -Texture (Steffi-wound Skin Appearance) Scarring -Moisture (Steffi-wound Skin Appearance) No Abnormality -Color (Steffi-wound Skin Appearance) No Abnormality -Temperature (Steffi-wound Skin No Abnormality Appearance) (Pt Warm) -Tenderness on Palpation (Steffi-wound No Skin Appearance) -Ulcer Cleansing Soap and Water -Foul Odor after Cleansing No #7 R Ischium cluster -Current Size (cm) - Length 2.5 -Current Size (cm) - Width 0.3 -Current Size (cm) - Depth 0.2 -Total Square Cm 0.75 -Photo Taken Yes -Exudate Amt Medium -Exudate Type Serosanguineous -Wound Margin Thickened & Rolled Under -Granulation Amt Large (67-100%) -Granulation Quality Red -Necrosis Amt Small (1-33%) -Necrotic Tissue Type Adherent Slough -Structure Exposed N/A -Texture (Steffi-wound Skin Appearance) Scarring -Moisture (Steffi-wound Skin Appearance) No Abnormality -Color (Steffi-wound Skin Appearance) No Abnormality -Temperature (Steffi-wound Skin No Abnormality Appearance) (Pt Warm) -Tenderness on Palpation (Steffi-wound No Skin Appearance) WC - Nurse 2 - General Ulcer CM Notes Start: 02/15/23 11:02 Freq: Status: Active Protocol: Activity Type Activity Date Activity User E-sign Co-sign Detail Recorded Client Recorded Date Recorded By Document 02/15/23 11:17 DEBORAH [id number] 02/15/23 11:31 DEBORAH 02/15/23 11:17 Wound Center Nurse 2 #8 L Ischium cluster -Time 11:17 -Correct Patient Yes -Correct Side, Site, Position Yes -Correct Procedure Yes -Procedure Performed Yes -Type of Procedure Debridement -Clinical Debridement Muscle / Fascia -Tissue Removed Muscle,Fascia -Post Debridement (cm) - Length 8.8 -Post Debridement (cm) - Width 8 -Post Debridement (cm) - Depth 3.2 -Total Square (Post) (cm) 70.4 -Area of Debridement (cm) - Length 8.8 -Area of Debridement (cm) - Width 8.0 -Total Square (Area) (cm) 70.40 -Tunneling No -Undermining/Tunneling No -Circular Undermining No -Wound/Ulcer Outcome Not Healed -Ulcer Cleansing Rinsed/ Irrigated with Saline -Foul Odor after Cleansing No -Bioengineered Tissue No -Bleeding Controlled with Pressure -Treatment Response Procedure Tolerated Well -Offloading No -Assistive Device(s) Wheelchair -Pressure Reduction Wheelchair cushion -Debridement - Muscle / Fascia, 1st Yes 20sq cm -Debridement, Muscle/Fascia, ea addt'l 3 20sq cm or part thereof #7 R Ischium cluster -Time 11:18 -Correct Patient Yes -Correct Side, Site, Position Yes -Correct Procedure Yes -Procedure Performed Yes -Type of Procedure Debridement -Clinical Debridement Muscle / Fascia -Tissue Removed Muscle,Fascia -Post Debridement (cm) - Length 8.5 -Post Debridement (cm) - Width 0.5 -Post Debridement (cm) - Depth 0.3 -Total Square (Post) (cm) 4.25 -Area of Debridement (cm) - Length 8.5 -Area of Debridement (cm) - Width 0.5 -Total Square (Area) (cm) 4.25 -Tunneling No -Undermining/Tunneling No -Circular Undermining No -Wound/Ulcer Outcome Not Healed -Ulcer Cleansing Rinsed/ Irrigated with Saline -Foul Odor after Cleansing No -Bioengineered Tissue No -Bleeding Controlled with Pressure -Treatment Response Procedure Tolerated Well -Offloading No -Pressure Reduction Wheelchair cushion -Debridement - Muscle / Fascia, 1st No 20sq cm Pain Scale: 0-10 Numeric Is Patient Pain Free? 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 Yes WC - Visit Discharge Discharge Condition Stable Ambulatory Status Wheelchair Transportation Private Auto Additional Wound Wound debrided: perianal/ischial ulcer Laterality: Right Wound Grade/Stage: Stage IV Type of Debridement: Excisional debridement Anesthesia Used: 4% Lidocaine Solution Depth: Down to and including healthy tissue, in the subcutaneous layer and to muscle Percentage of wound debrided: 100 Instrument Used: 3mm curette Tissue Removed: Non viable tissue and slough Severity: Fat Layer Exposed Amount of bleeding with debridement: Mild Bleeding Controlled with: Pressure and Compression and gauze Patient tolerated procedure: Patient tolerated procedure well Assessment/Plan Assessment/Plan (1) Pressure sore of left ischium, stage 4: CODE(S): L89.324 - Pressure ulcer of left buttock, stage 4 (2) Right ischial pressure sore, stage 4: CODE(S): L89.314 - Pressure ulcer of right buttock, stage 4 (3) Perineal ulcer: CODE(S): L98.499 - Non-pressure chronic ulcer of skin of other sites with unspecified severity QUALIFIERS: Non-pressure ulcer stage: unspecified non-pressure ulcer stage Qualified Code(s): L98.499 - Non-pressure chronic ulcer of skin of other sites with unspecified severity (4) Chronic osteomyelitis, pelvis: CODE(S): M86.659 - Other chronic osteomyelitis, unspecified thigh (5) Paraplegia at T4 level: CODE(S): G82.20 - Paraplegia, unspecified (6) History of tobacco use: CODE(S): Z87.891 - Personal history of nicotine dependence (7) Severe protein-calorie malnutrition: CODE(S): E43 - Unspecified severe protein-calorie malnutrition PLAN: Plan Patient was evaluated at the wound healing center today. Wound care - To the left ischial ulcer will start Dakins 0.25% moistened gauze topped with ABD/Super absorber dressing daily and prn. To the right ischial/steffi anal ulcer Promogran that can be moistened covered with gauze or ABD daily. Wash both ulcers with soap and water at the time of the dressing changes. Encourage nutritional supplementation with protein to help the healing process. He is having issues with his low air loss air mattress. Order placed for a new one, he states it has been at least 6 years since his was replaced. He is having difficulty finding someplace to cover the type of mattress that he currently has. He has only found one place to cover a mattress but it not like the one he has and he states he has has one similar to the one covered in the past and it is very uncomfortable and doesn't give good support. Left ischial wound culture obtained 12/28/22 which was positive MRSA, Staphylococcus haemolyticus, Corynebacterium striatum, Proteus mirabilis, Streptococcus group F. He was treated with Augmentin and Doxycycline. After lengthy discussion with the patient about his left ischial ulcer that had increased compromise several weeks ago and is not showing much improvement, he has decided he would benefit from from possibly having his left leg amputated. This is something that Dr. Urban does not feel should be done here at [place], so will refer patient to a tertiary center such as [facility] for further evaluation. Follow up three weeks. Call or come in sooner if develop any concerns.
== END 2023-03-10 23:59 | disposition home or self-care (01) ==
LOC: WC 11:06
PROVIDERS: PCP Internal Medicine; Visit Provider Nurse Practitioner Family
DX: L89.314 Pressure ulcer of right buttock, stage 4 (principal); L89.324 Pressure ulcer of left buttock, stage 4; G82.20 Paraplegia, unspecified; Z89.611 Acquired absence of right leg above knee; L98.492 Non-pressure chronic ulcer of skin of other sites with fat layer exposed; M86.68 Other chronic osteomyelitis, other site; L91.8 Other hypertrophic disorders of the skin; Z87.891 Personal history of nicotine dependence; Z79.899 Other long term (current) drug therapy; Z88.1 Allergy status to other antibiotic agents; Z90.6 Acquired absence of other parts of urinary tract; Z90.79 Acquired absence of other genital organ(s)
CPT/HCPCS: 11043; 11046

== ENCOUNTER 2023-03-15 11:06 | Outpatient (RCR) | payer MEDICARE, MEDICAID, SELFPAY ==
[2023-03-11 00:24] VITALS: BP 137/70; PULSE 112; RESP 20; TEMP 36.7; BMI 19.8
[2023-03-15 11:23] VITALS: BP 142/68; PULSE 83; RESP 16; BMI 19.8
--- NOTE | 2023-03-15 13:13 | PCM.WC.PN ---
History of Present Illness Date of Service: 03/15/23 Chief Complaint: Bilateral ischial pressure sores, Stage IV. History of Wound: Surgery 04/08/20 - 1. Excision bleeding right ischial/perineal pressure sore, Stage IV. 2. Control of prostatic bleeding with electrocautery and Surgicel hemostat. Wound Care - Left ischial ulcer is Dakin's 0.25% moistened gauze topped with ABD daily. Right ischial ulcer is Promogran topped with ABD daily. Wash both ulcers with soap and water at the time of the dressing change. Left ischial ulcer culture 12/28/22 positive for MRSA, Staphylococcus haemolyticus, Corynebacterium striatum, Proteus mirabilus, and Streptococcus group F. He was treated with Augmentin and Doxycycline. Wound culture from 03/02/22 positive for Pseudomonas aeroginosa, Morganella morganii sp sibonii, and Corynebacterium. Due to his allergies and the the sensitivity of the cultures, patient was referred to ID, who placed him on Augmentin and Cipro, which he currently is on and is tolerating. Wound culture from 01/20/21 positive for Proteus mirabilis, Cornybacterium minutissium and Bacteroides fragilis. He was referred to ID for antibiotic management, which he was placed on Cefdinir, Doxycycline and Flagyl for 10 days. Patient has long standing bilateral ischial pressure sores, Stage IV, with the left side extending to the femoral head and the right side extending to the perineal area and the prostate. Surgery would entail quite extensive excision with amputations at a tertiary center. Patient does not want to pursue any heroic surgeries at this time since it is not a guarantee his pressure issues won't recur. With aggressive amputations, his already tenuous balance would be even more disrupted. At the present time, we are providing conservative care on a monthly basis. He stated his right leg gets in the way when transferring. He underwent a right AKA on 06/12/20 in [place]. Wound culture was done on 04/22/20. It showed Morganella morganii, Pseudomonas aeroginosa, Streptococcus group F, and Bacteroides fragilis. He has a lot of antibiotic allergies. His only real option is IV antibiotics. Dr. Chester also saw him at the Wound Center and felt the wounds were colonized and held off on antibiotics at this time. If his clinical situation were to change, then would re-evaluate him for IV antibiotics at that time. Wound culture from 11/01/20 was positive for MRSA, E. coli, Proteus Mirabilis. He was treated with Augmentin and doxycycline. He had a cystectomy and a partial prostatectomy by Dr. Lala at [facility] on 08/04/22. He states he is feeling better than he was before having his bladder removed. Today he denies any fever, chills or nausea and vomiting. Progress of Wound: Left ischial ulcer cluster is stable. It continues to have crevices with significant depth/tunneling. He has clear, non odorous drainage that is believed to be coming from his left hip joint, it occurs when he moves in a certain way. This is not a new occurrence. Steffi wound is stable. Right ischial is stable with increased scar tissue around the edges. Objective Data Objective Data Vital Signs: Vital Signs Temp Pulse Resp BP O2 Del Method 98.1 F 83 16 142/68 H Room Air 03/11/23 00:24 03/15/23 11:23 03/15/23 11:23 03/15/23 11:23 03/15/23 11:23 Oxygen Delivery Method Room Air Body Mass Index (BMI) 19.8 Charges/Coding Procedures Integumentary 111xxx-113xx: 27778 Manisha musc/fascia 20 sq cm/< Add On Codes: 88379 Manisha musc/fascia add-on (x2) Debridement Note Debridement Note Wound debrided: ischial ulcer Laterality: Left Wound Grade/Stage: Stage IV Type of Debridement: Excisional debridement Anesthesia Used: 4% Lidocaine Solution Depth: Down to and including healthy tissue, in the subcutaneous layer and to muscle Percentage of wound debrided: 100 Instrument Used: 7mm curette Tissue Removed: Non viable tissue and slough into the muscle Severity: Fat Layer Exposed Amount of bleeding with debridement: Mild Bleeding Controlled with: Pressure and Compression and gauze Patient tolerated procedure: Patient tolerated procedure well Post-Debridement Measurements and Additional Note: Post-Debridement Measurements/Treatment WC - Nurse 1 - General Ulcer Assessment Start: 03/15/23 11:23 Freq: Status: Active Protocol: WILLIAMS Activity Type Activity Date Activity User E-sign Co-sign Detail Recorded Client Recorded Date Recorded By Document 03/15/23 11:23 BMF [id number] 03/15/23 11:30 [facility] 03/15/23 11:23 WC - Today's Visit Information Type of service Follow-up Visit (Physician/PRICING INTERN ) Arrival Mode Wheelchair Transfer Assistance Other Transfer Assist (Other) stand by Patient Identification Verified (Name & Yes ) Patient Requires Transmission-Based No Precautions Height and Weight Body Mass Index (BMI) 19.8 BMI Classification Normal Vital Signs Pulse Rate (60-100) 83 Pulse Location Monitor Respiratory Rate (12-18) 16 Respiratory rate source Observation Oxygen Delivery Method Room Air Blood Pressure (90/60-120/80) 142/68 H Blood Pressure Mean (mm Hg) 92 Source Monitor Position Sitting Blood Pressure Location Right Arm History Since Last Visit- (Skip if this is Patient's initial visit) Have you changed medications since your No last visit? Any new allergies or adverse reactions No Had a fall/change in ADL's that may No increase risk of falls Signs or symptoms of abuse and/or No neglect since last visit Have you been in the hospital since your No last visit? Has dressing in place as prescribed Yes Has compression in place as prescribed N/A Has offloadiing in place as prescribed N/A Experienced any changes in pain level or No management Pain Scale: 0-10 Numeric Is Patient Pain Free? Yes - Nurse 1 - General Ulcer Measurement Start: 03/15/23 11:23 Freq: Status: Active Protocol: Activity Type Activity Date Activity User E-sign Co-sign Detail Recorded Client Recorded Date Recorded By Document 03/15/23 11:23 [facility] [id number] 03/15/23 11:30 [facility] 03/15/23 11:23 Wound Center Nurse 1 #8 L Ischium cluster -Combined with other wound No -Current Size (cm) - Length 8.5 -Current Size (cm) - Width 7 -Current Size (cm) - Depth 0.1 -Total Square Cm 59.5 -Date of Last Picture (Recall this 03/15/23 field) -Photo Taken Yes -Epithelialization None Present -Tunneling No -Undermining/Tunneling Yes -Undermining/Tunneling Starts (O'clock 6 ) -Undermining/Tunneling Ends (O'clock) 7 -Maximum Distance (cm) 0.4 -Undermining/Tunneling Starts #2 (O' 11 clock) -Undermining/Tunneling Ends #2 (O' 12 clock) -Maximum Distance #2 (cm) 0.4 -Circular Undermining No -Exudate Amt Medium -Exudate Type Serosanguineous -Wound Margin Thickened & Rolled Under -Granulation Amt Large (67-100%) -Granulation Quality [place] -Slough/Fibrin Yes -Necrosis Amt Small (1-33%) -Necrotic Tissue Type Adherent Slough -Texture (Steffi-wound Skin Appearance) Assessed, Scarring -Moisture (Steffi-wound Skin Appearance) Assessed -Color (Steffi-wound Skin Appearance) Assessed -Temperature (Steffi-wound Skin No Abnormality Appearance) (Pt Warm) -Tenderness on Palpation (Steffi-wound No Skin Appearance) -Ulcer Cleansing Rinsed/ Irrigated with Saline -Foul Odor after Cleansing No #7 R Ischium cluster -Combined with other wound No -Current Size (cm) - Length 3 -Current Size (cm) - Width 0.5 -Current Size (cm) - Depth 0.1 -Total Square Cm 1.5 -Date of Last Picture (Recall this 03/15/23 field) -Photo Taken Yes -Epithelialization None Present -Tunneling No -Undermining/Tunneling No -Circular Undermining No -Exudate Amt Medium -Exudate Type Serosanguineous -Wound Margin Thickened & Rolled Under -Granulation Amt Large (67-100%) -Granulation Quality [place] -Slough/Fibrin Yes -Necrosis Amt Small (1-33%) -Necrotic Tissue Type Adherent Slough -Texture (Steffi-wound Skin Appearance) Assessed, Scarring -Moisture (Steffi-wound Skin Appearance) Assessed -Color (Steffi-wound Skin Appearance) Assessed -Temperature (Steffi-wound Skin No Abnormality Appearance) (Pt Warm) -Tenderness on Palpation (Steffi-wound No Skin Appearance) -Ulcer Cleansing Rinsed/ Irrigated with Saline -Foul Odor after Cleansing No WC - Nurse 2 - General Ulcer CM Notes Start: 03/15/23 11:23 Freq: Status: Active Protocol: Activity Type Activity Date Activity User E-sign Co-sign Detail Recorded Client Recorded Date Recorded By Document 03/15/23 11:47 DEBORAH [id number] 03/15/23 11:53 DEBORAH 03/15/23 11:47 Wound Center Nurse 2 #8 L Ischium cluster -Time 11:47 -Correct Patient Yes -Correct Side, Site, Position Yes -Correct Procedure Yes -Procedure Performed Yes -Type of Procedure Debridement -Clinical Debridement Muscle / Fascia -Tissue Removed Muscle,Fascia -Post Debridement (cm) - Length 8 -Post Debridement (cm) - Width 7 -Post Debridement (cm) - Depth 2.8 -Total Square (Post) (cm) 56 -Area of Debridement (cm) - Length 8 -Area of Debridement (cm) - Width 7 -Total Square (Area) (cm) 56 -Tunneling No -Undermining/Tunneling No -Circular Undermining No -Wound/Ulcer Outcome Not Healed -Ulcer Cleansing Rinsed/ Irrigated with Saline -Foul Odor after Cleansing No -Bioengineered Tissue No -Bleeding Controlled with Pressure -Treatment Response Procedure Tolerated Well -Offloading No -Debridement - Muscle / Fascia, 1st Yes 20sq cm -Debridement, Muscle/Fascia, ea addt'l 2 20sq cm or part thereof #7 R Ischium cluster -Time 11:47 -Correct Patient Yes -Correct Side, Site, Position Yes -Correct Procedure Yes -Procedure Performed Yes -Type of Procedure Debridement -Clinical Debridement Muscle / Fascia -Tissue Removed Muscle,Fascia -Post Debridement (cm) - Length 4.5 -Post Debridement (cm) - Width 0.5 -Post Debridement (cm) - Depth 0.2 -Total Square (Post) (cm) 2.25 -Area of Debridement (cm) - Length 4.5 -Area of Debridement (cm) - Width 0.5 -Total Square (Area) (cm) 2.25 -Tunneling No -Undermining/Tunneling No -Circular Undermining No -Wound/Ulcer Outcome Not Healed -Ulcer Cleansing Rinsed/ Irrigated with Saline -Foul Odor after Cleansing No -Bioengineered Tissue No -Bleeding Controlled with Pressure -Treatment Response Procedure Tolerated Well -Offloading No -Debridement - Muscle / Fascia, 1st No 20sq cm Pain Scale: 0-10 Numeric Is Patient Pain Free? Yes WC - Nurse 3 - General Ulcer D/C NN Start: 03/15/23 11:23 Freq: Status: Active Protocol: Activity Type Activity Date Activity User E-sign Co-sign Detail Recorded Client Recorded Date Recorded By Document 03/15/23 12:10 SALOME [id number] 03/15/23 12:11 SALOME 03/15/23 12:10 Wound Care Center Nurse 3 #8 L Ischium cluster -Ulcer Cleansing Rinsed/ Irrigated with Saline -Foul Odor after Cleansing No -Negative Pressure Wound Therapy N/A -Other Dressing dakins, ABD -Primary Dressing Covered/Secured with Secured with Tape #7 R Ischium cluster -Ulcer Cleansing Rinsed/ Irrigated with Saline -Foul Odor after Cleansing No -Negative Pressure Wound Therapy N/A -Primary Dressing Applied Promogran Tram Matter -Promogran Tram Matter 1 Pain Scale: 0-10 Numeric Is Patient Pain Free? Yes WC - Visit Discharge Discharge Condition Stable Ambulatory Status Wheelchair Medication Reconcilliation completed & Yes provided to patient/care provider Clinical Summary of Care Provided Yes Additional Wound Wound debrided: perianal/ischial ulcer Laterality: Right Wound Grade/Stage: Stage IV Type of Debridement: Excisional debridement Anesthesia Used: 4% Lidocaine Solution Depth: Down to and including healthy tissue, in the subcutaneous layer and to muscle Percentage of wound debrided: 100 Instrument Used: 3mm curette Tissue Removed: Non viable tissue and slough Severity: Fat Layer Exposed Amount of bleeding with debridement: Mild Bleeding Controlled with: Pressure and Compression and gauze Patient tolerated procedure: Patient tolerated procedure well Assessment/Plan Assessment/Plan (1) Pressure sore of left ischium, stage 4: CODE(S): L89.324 - Pressure ulcer of left buttock, stage 4 (2) Right ischial pressure sore, stage 4: CODE(S): L89.314 - Pressure ulcer of right buttock, stage 4 (3) Perineal ulcer: CODE(S): L98.499 - Non-pressure chronic ulcer of skin of other sites with unspecified severity QUALIFIERS: Non-pressure ulcer stage: unspecified non-pressure ulcer stage Qualified Code(s): L98.499 - Non-pressure chronic ulcer of skin of other sites with unspecified severity (4) Chronic osteomyelitis, pelvis: CODE(S): M86.659 - Other chronic osteomyelitis, unspecified thigh (5) Paraplegia at T4 level: CODE(S): G82.20 - Paraplegia, unspecified (6) History of tobacco use: CODE(S): Z87.891 - Personal history of nicotine dependence (7) Severe protein-calorie malnutrition: CODE(S): E43 - Unspecified severe protein-calorie malnutrition PLAN: Plan Patient was evaluated at the wound healing center today. Wound care - To the left ischial ulcer will start Dakins 0.25% moistened gauze topped with ABD/Super absorber dressing daily and prn. To the right ischial/steffi anal ulcer Promogran that can be moistened covered with gauze or ABD daily. Wash both ulcers with soap and water at the time of the dressing changes. Stressed with him that he needs to moistened Dakin's gauze over the ulcer, not just rinse the ulcer with dakins. He verbalized understanding. Encourage nutritional supplementation with protein to help the healing process. Left ischial wound culture obtained 12/28/22 which was positive MRSA, Staphylococcus haemolyticus, Corynebacterium striatum, Proteus mirabilis, Streptococcus group F. He was treated with Augmentin and Doxycycline. After lengthy discussion with the patient about his left ischial ulcer that had increased compromise several weeks ago and is not showing much improvement, he has decided he would benefit from from possibly having his left leg amputated. This is something that Dr. Urban does not feel should be done here at [facility], so will refer patient to a tertiary center such as [facility] for further evaluation. He went and was evaluated by an orthopedic surgeon at [facility] and he is referring the patient to see a plastic surgeon at [facility]. Follow up four weeks. Call or come in sooner if develop any concerns.
== END 2023-04-09 23:59 | disposition home or self-care (01) ==
LOC: WC 11:06
PROVIDERS: PCP Internal Medicine; Visit Provider Nurse Practitioner Family
DX: L89.324 Pressure ulcer of left buttock, stage 4 (principal); L89.314 Pressure ulcer of right buttock, stage 4; G82.20 Paraplegia, unspecified; L98.492 Non-pressure chronic ulcer of skin of other sites with fat layer exposed; M86.659 Other chronic osteomyelitis, unspecified thigh; Z79.899 Other long term (current) drug therapy; Z87.891 Personal history of nicotine dependence
CPT/HCPCS: 11043; 11046

== ENCOUNTER 2023-05-10 11:15 | Outpatient (RCR) | payer MEDICARE, MEDICAID, SELFPAY ==
[2023-04-10 00:56] VITALS: BP 142/68; PULSE 83; RESP 16; TEMP 36.7; BMI 19.8
[2023-04-12 11:00] VITALS: BP 106/71; PULSE 114; RESP 16; TEMP 36.9; BMI 19.8
--- NOTE | 2023-04-12 12:06 | PN.PCM_ITS ---
History of Present Illness Date of Service: 04/12/23 Chief Complaint: Bilateral ischial pressure sores, Stage IV. History of Wound: Surgery 04/08/20 - 1. Excision bleeding right ischial/perineal pressure sore, Stage IV. 2. Control of prostatic bleeding with electrocautery and Surgicel hemostat. Wound Care - Left ischial ulcer is Dakin's 0.25% moistened gauze topped with ABD daily. Right ischial ulcer is Promogran topped with ABD daily. Wash both ulcers with soap and water at the time of the dressing change. Left ischial ulcer culture 12/28/22 positive for MRSA, Staphylococcus haemolyticus, Corynebacterium striatum, Proteus mirabilus, and Streptococcus group F. He was treated with Augmentin and Doxycycline. Wound culture from 03/02/22 positive for Pseudomonas aeroginosa, Morganella morganii sp sibonii, and Corynebacterium. Due to his allergies and the the sensitivity of the cultures, patient was referred to ID, who placed him on Augmentin and Cipro, which he currently is on and is tolerating. Wound culture from 01/20/21 positive for Proteus mirabilis, Cornybacterium minut issium and Bacteroides fragilis. He was referred to ID for antibiotic management, which he was placed on Cefdinir, Doxycycline and Flagyl for 10 days. Patient has long standing bilateral ischial pressure sores, Stage IV, with the left side extending to the femoral head and the right side extending to the perineal area and the prostate. Surgery would entail quite extensive excision with amputations at a tertiary center. Patient does not want to pursue any heroic surgeries at this time since it is not a guarantee his pressure issues won't recur. With aggressive amputations, his already tenuous balance would be even more disrupted. At the present time, we are providing conservative care on a monthly basis. He stated his right leg gets in the way when transferring. He underwent a right AKA on 06/12/20 in [place]. Wound culture was done on 04/22/20. It showed Morganella morganii, Pseudomonas aeroginosa, Streptococcus group F, and Bacteroides fragilis. He has a lot of antibiotic allergies. His only real option is IV antibiotics. Dr. Chester also saw him at the Wound Center and felt the wounds were colonized and held off on antibiotics at this time. If his clinical situation were to change, then would re-evaluate him for IV antibiotics at that time. Wound culture from 11/01/20 was positive for MRSA, E. coli, Proteus Mirabilis. He was treated with Augmentin and doxycycline. He had a cystectomy and a partial prostatectomy by Dr. Lala at [facility] on 08/04/22. He states he is feeling better than he was before having his bladder removed. Today he denies any fever, chills or nausea and vomiting. Progress of Wound: Left ischial ulcer cluster is stable. It continues to have crevices with significant depth/tunneling. He has clear, non odorous drainage that drains from the 12 o'clock crevice/tunnel, it is believed to be coming from his left hip joint, it occurs when he moves in a certain way. This is not a new occurrence. Steffi wound is stable. Right ischial is stable with increased scar tissue around the edges that was sharply debrided to remove some of the scar tissue. Objective Data Objective Data Vital Signs: Vital Signs Temp Pulse Resp BP O2 Del Method 98.5 F 114 H 16 106/71 Room Air 04/12/23 11:00 04/12/23 11:00 04/12/23 11:00 04/12/23 11:00 04/12/23 11:00 Oxygen Delivery Method Room Air Body Mass Index (BMI) 19.8 Charges/Coding Procedures Integumentary 111xxx-113xx: 14048 Manisha musc/fascia 20 sq cm/< Add On Codes: 04743 Manisha musc/fascia add-on (x3) Debridement Note Debridement Note Wound debrided: ischial ulcer cluster Laterality: Left Wound Grade/Stage: Stage IV Type of Debridement: Excisional debridement Anesthesia Used: 4% Lidocaine Solution Depth: Down to and including healthy tissue, in the subcutaneous layer and to muscle Percentage of wound debrided: 100 Instrument Used: 7mm curette Tissue Removed: Non viable tissue and slough into the muscle Severity: Fat Layer Exposed Amount of bleeding with debridement: Mild Bleeding Controlled with: Pressure and Compression and gauze Patient tolerated procedure: Patient tolerated procedure well Post-Debridement Measurements and Additional Note: Post-Debridement Measurements/Treatment WC - Nurse 1 - General Ulcer Assessment Start: 04/12/23 10:58 Freq: Status: Active Protocol: WC.LOWEXT Activity Type Activity Date Activity User E-sign Co-sign Detail Recorded Client Recorded Date Recorded By Document 04/12/23 11:00 [facility] [id number] 04/12/23 11:10 [facility] 04/12/23 11:00 - Today's Visit Information Type of service Follow-up Visit (Physician/CONFERENCE TRANSLATOR ) Arrival Mode Wheelchair Transfer Assistance Other Transfer Assist (Other) STAND BY Patient Identification Verified (Name & Yes ) Patient Requires Transmission-Based No Precautions Height and Weight Body Mass Index (BMI) 19.8 BMI Classification Normal Vital Signs Temperature (97.8 F-99.1 F) 98.5 F Temperature Source Temporal Pulse Rate (60-100) 114 H Pulse Location Monitor Respiratory Rate (12-18) 16 Respiratory rate source Observation Oxygen Delivery Method Room Air Blood Pressure (90/60-120/80) 106/71 Blood Pressure Mean (mm Hg) 82 Source Monitor Position Sitting Blood Pressure Location Left Arm History Since Last Visit- (Skip if this is Patient's initial visit) Have you changed medications since your No last visit? Any new allergies or adverse reactions No Had a fall/change in ADL's that may No increase risk of falls Signs or symptoms of abuse and/or No neglect since last visit Have you been in the hospital since your No last visit? Has dressing in place as prescribed Yes Has compression in place as prescribed N/A Has offloadiing in place as prescribed N/A Experienced any changes in pain level or No management Pain Scale: 0-10 Numeric Is Patient Pain Free? Yes - Nurse 1 - General Ulcer Measurement Start: 04/12/23 10:58 Freq: Status: Active Protocol: Activity Type Activity Date Activity User E-sign Co-sign Detail Recorded Client Recorded Date Recorded By Document 04/12/23 11:00 [facility] [id number] 04/12/23 11:10 [facility] 04/12/23 11:00 Wound Center Nurse 1 #8 L Ischium cluster -Combined with other wound No -Current Size (cm) - Length 8 -Current Size (cm) - Width 4 -Current Size (cm) - Depth 0.1 -Total Square Cm 32 -Date of Last Picture (Recall this 04/12/23 field) -Photo Taken Yes -Epithelialization Small 1-33% -Tunneling No -Undermining/Tunneling Yes -Undermining/Tunneling Starts (O'clock 4 ) -Undermining/Tunneling Ends (O'clock) 8 -Maximum Distance (cm) 0.9 -Circular Undermining No -Exudate Amt Medium -Exudate Type Serosanguineous -Wound Margin Thickened & Rolled Under -Granulation Amt Large (67-100%) -Granulation Quality Red -Slough/Fibrin Yes -Necrosis Amt Small (1-33%) -Necrotic Tissue Type Adherent Slough -Texture (Steffi-wound Skin Appearance) Assessed, Scarring -Moisture (Steffi-wound Skin Appearance) Assessed -Color (Steffi-wound Skin Appearance) Assessed -Temperature (Steffi-wound Skin No Abnormality Appearance) (Pt Warm) -Tenderness on Palpation (Steffi-wound No Skin Appearance) -Ulcer Cleansing Rinsed/ Irrigated with Saline -Foul Odor after Cleansing No #7 R Ischium cluster -Combined with other wound No -Current Size (cm) - Length 3 -Current Size (cm) - Width 0.3 -Current Size (cm) - Depth 0.3 -Total Square Cm 0.9 -Date of Last Picture (Recall this 04/12/23 field) -Photo Taken Yes -Epithelialization None Present -Tunneling No -Undermining/Tunneling No -Circular Undermining No -Exudate Amt Medium -Exudate Type Sanguineous -Wound Margin Thickened & Rolled Under -Granulation Amt Large (67-100%) -Granulation Quality Red -Slough/Fibrin Yes -Necrosis Amt Small (1-33%) -Necrotic Tissue Type Adherent Slough -Texture (Steffi-wound Skin Appearance) Assessed, Scarring -Moisture (Steffi-wound Skin Appearance) Assessed -Color (Steffi-wound Skin Appearance) Assessed -Temperature (Steffi-wound Skin No Abnormality Appearance) (Pt Warm) -Tenderness on Palpation (Steffi-wound No Skin Appearance) -Ulcer Cleansing Rinsed/ Irrigated with Saline -Foul Odor after Cleansing No WC - Nurse 2 - General Ulcer CM Notes Start: 04/12/23 10:58 Freq: Status: Active Protocol: Activity Type Activity Date Activity User E-sign Co-sign Detail Recorded Client Recorded Date Recorded By Document 04/12/23 11:30 DEBORAH [id number] 04/12/23 11:38 DEBORAH 04/12/23 11:30 Wound Center Nurse 2 #8 L Ischium cluster -Time 11:31 -Correct Patient Yes -Correct Side, Site, Position Yes -Correct Procedure Yes -Procedure Performed Yes -Type of Procedure Debridement -Clinical Debridement Muscle / Fascia -Tissue Removed Muscle -Post Debridement (cm) - Length 9.0 -Post Debridement (cm) - Width 7.4 -Post Debridement (cm) - Depth 1.5 -Total Square (Post) (cm) 66.60 -Area of Debridement (cm) - Length 9.0 -Area of Debridement (cm) - Width 7.4 -Total Square (Area) (cm) 66.60 -Tunneling No -Undermining/Tunneling Yes -Undermining/Tunneling Starts (O'clock 6 ) -Maximum Distance (cm) 1.0 -Circular Undermining No -Wound/Ulcer Outcome Not Healed -Ulcer Cleansing Rinsed/ Irrigated with Saline -Foul Odor after Cleansing No -Bioengineered Tissue No -Bleeding Controlled with Pressure -Treatment Response Procedure Tolerated Well -Offloading No -Pressure Reduction Wheelchair cushion -Debridement - Muscle / Fascia, 1st Yes 20sq cm -Debridement, Muscle/Fascia, ea addt'l 3 20sq cm or part thereof #7 R Ischium cluster -Time 11:31 -Correct Patient Yes -Correct Side, Site, Position Yes -Correct Procedure Yes -Procedure Performed Yes -Type of Procedure Debridement -Clinical Debridement Muscle / Fascia -Tissue Removed Muscle -Post Debridement (cm) - Length 3.2 -Post Debridement (cm) - Width 1.0 -Post Debridement (cm) - Depth 0.2 -Total Square (Post) (cm) 3.20 -Area of Debridement (cm) - Length 3.2 -Area of Debridement (cm) - Width 1.0 -Total Square (Area) (cm) 3.20 -Tunneling No -Undermining/Tunneling No -Circular Undermining No -Wound/Ulcer Outcome Not Healed -Ulcer Cleansing Rinsed/ Irrigated with Saline -Foul Odor after Cleansing No -Bioengineered Tissue No -Bleeding Controlled with Pressure -Treatment Response Procedure Tolerated Well -Offloading No -Pressure Reduction Wheelchair cushion -Debridement - Muscle / Fascia, 1st No 20sq cm Pain Scale: 0-10 Numeric Is Patient Pain Free? Yes WC - Nurse 3 - General Ulcer D/C NN Start: 04/12/23 10:58 Freq: Status: Active Protocol: Activity Type Activity Date Activity User E-sign Co-sign Detail Recorded Client Recorded Date Recorded By Document 04/12/23 11:50 MW [id number] 04/12/23 11:52 MW 04/12/23 11:50 Wound Care Center Nurse 3 #8 L Ischium cluster -Ulcer Cleansing Rinsed/ Irrigated with Saline -Foul Odor after Cleansing No -Negative Pressure Wound Therapy N/A -Primary Dressing Applied Hysept ($) -Primary Dressing Covered/Secured with Secured with Tape -Other Covering ABD #7 R Ischium cluster -Ulcer Cleansing Rinsed/ Irrigated with Saline -Primary Dressing Applied Promogran -Primary Dressing Covered/Secured with Secured with Tape -Other Covering ABD -Promogran 1 Treatment Response Procedure Tolerated Well Pain Scale: 0-10 Numeric Is Patient Pain Free? Yes Teaching: Wound Center Dressing Your Wound -Person Taught Patient -Teaching Method Discussion, Demonstration -Response to teaching Verbalize understanding WC - Visit Discharge Discharge Condition Stable Ambulatory Status Wheelchair Transportation TRANSPORT SERVICE Medication Reconcilliation completed & No provided to patient/care provider Clinical Summary of Care Provided Yes Additional Wound Wound debrided: perianal/ischial ulcer Laterality: Right Wound Grade/Stage: Stage IV Type of Debridement: Excisional debridement Anesthesia Used: 4% Lidocaine Solution Depth: Down to and including healthy tissue, in the subcutaneous layer and to muscle Percentage of wound debrided: 100 Instrument Used: 3mm curette Tissue Removed: Non viable tissue and slough Severity: Fat Layer Exposed Amount of bleeding with debridement: Mild Bleeding Controlled with: Pressure and Compression and gauze Patient tolerated procedure: Patient tolerated procedure well Assessment/Plan Assessment/Plan (1) Pressure sore of left ischium, stage 4: CODE(S): L89.324 - Pressure ulcer of left buttock, stage 4 (2) Right ischial pressure sore, stage 4: CODE(S): L89.314 - Pressure ulcer of right buttock, stage 4 (3) Perineal ulcer: CODE(S): L98.499 - Non-pressure chronic ulcer of skin of other sites with unspecified severity QUALIFIERS: Non-pressure ulcer stage: unspecified non-pressure ulcer stage Qualified Code(s): L98.499 - Non-pressure chronic ulcer of skin of other sites with unspecified severity (4) Chronic osteomyelitis, pelvis: CODE(S): M86.659 - Other chronic osteomyelitis, unspecified thigh (5) Paraplegia at T4 level: CODE(S): G82.20 - Paraplegia, unspecified (6) History of tobacco use: CODE(S): Z87.891 - Personal history of nicotine dependence (7) Severe protein-calorie malnutrition: CODE(S): E43 - Unspecified severe protein-calorie malnutrition PLAN: Plan Patient was evaluated at the wound healing center today. Wound care - To the left ischial ulcer Dakins 0.25% moistened gauze topped with ABD/Super absorber dressing daily and prn. To the right ischial/steffi anal ulcer Promogran that can be moistened covered with gauze or ABD daily. Wash both ulcers with soap and water at the time of the dressing changes. Stressed with him that he needs to moistened Dakin's gauze over the ulcer, not just rinse the ulcer with dakins. He verbalized understanding. Encourage nutritional supplementation with protein to help the healing process. Left ischial wound culture obtained 12/28/22 which was positive MRSA, Staphylococcus haemolyticus, Corynebacterium striatum, Proteus mirabilis, Streptococcus group F. He was treated with Augmentin and Doxycycline. After lengthy discussion with the patient about his left ischial ulcer that had increased compromise and is not showing much improvement, he has decided he would benefit from from possibly having his left leg amputated. This is something that Dr. Urban does not feel should be done here at [facility], so will refer patient to a tertiary center such as [facility] for further evaluation. He went and was evaluated by an orthopedic surgeon at [facility] and he is referring the patient to see a plastic surgeon at [facility], which is scheduled for April 23, 2023. Follow up four weeks. Call or come in sooner if develop any concerns.
[2023-05-10 11:39] VITALS: BP 152/72; PULSE 62; RESP 20; TEMP 36.5; BMI 19.8
--- NOTE | 2023-05-10 13:11 | PCM.WC.PN ---
History of Present Illness Date of Service: 05/10/23 Chief Complaint: Bilateral ischial pressure sores, Stage IV. History of Wound: Surgery 04/08/20 - 1. Excision bleeding right ischial/perineal pressure sore, Stage IV. 2. Control of prostatic bleeding with electrocautery and Surgicel hemostat. Wound Care - Left ischial ulcer is Dakin's 0.25% moistened gauze topped with ABD daily. Right ischial ulcer is Promogran topped with ABD daily. Wash both ulcers with soap and water at the time of the dressing change. Left ischial ulcer culture 12/28/22 positive for MRSA, Staphylococcus haemolyticus, Corynebacterium striatum, Proteus mirabilus, and Streptococcus group F. He was treated with Augmentin and Doxycycline. Wound culture from 03/02/22 positive for Pseudomonas aeroginosa, Morganella morganii sp sibonii, and Corynebacterium. Due to his allergies and the the sensitivity of the cultures, patient was referred to ID, who placed him on Augmentin and Cipro, which he currently is on and is tolerating. Wound culture from 01/20/21 positive for Proteus mirabilis, Cornybacterium minutissium and Bacteroides fragilis. He was referred to ID for antibiotic management, which he was placed on Cefdinir, Doxycycline and Flagyl for 10 days. Patient has long standing bilateral ischial pressure sores, Stage IV, with the left side extending to the femoral head and the right side extending to the perineal area and the prostate. Surgery would entail quite extensive excision with amputations at a tertiary center. Patient does not want to pursue any heroic surgeries at this time since it is not a guarantee his pressure issues won't recur. With aggressive amputations, his already tenuous balance would be even more disrupted. At the present time, we are providing conservative care on a monthly basis. He stated his right leg gets in the way when transferring. He underwent a right AKA on 06/12/20 in [place]. Wound culture was done on 04/22/20. It showed Morganella morganii, Pseudomonas aeroginosa, Streptococcus group F, and Bacteroides fragilis. He has a lot of antibiotic allergies. His only real option is IV antibiotics. Dr. Chester also saw him at the Wound Center and felt the wounds were colonized and held off on antibiotics at this time. If his clinical situation were to change, then would re-evaluate him for IV antibiotics at that time. Wound culture from 11/01/20 was positive for MRSA, E. coli, Proteus Mirabilis. He was treated with Augmentin and doxycycline. He had a cystectomy and a partial prostatectomy by Dr. Lala at [facility] on 08/04/22. He states he is feeling better than he was before having his bladder removed. Today he denies any fever, chills or nausea and vomiting. Progress of Wound: Left ischial ulcer cluster has slightly improved. It continues to have crevices with significant depth/tunneling. Steffi wound is stable. Right ischial is stable. He was recently seen by a surgeon at [facility] for evaluation for his ulcers. He states they are doing further testing before he would have any surgeries. Objective Data Objective Data Vital Signs: Vital Signs Temp Pulse Resp BP O2 Del Method 97.7 F L 62 20 H 152/72 H Room Air 05/10/23 11:39 05/10/23 11:39 05/10/23 11:39 05/10/23 11:39 04/12/23 11:00 Oxygen Delivery Method Room Air Body Mass Index (BMI) 19.8 Charges/Coding Procedures Integumentary 111xxx-113xx: 69099 Manisha musc/fascia 20 sq cm/< Add On Codes: 59819 Manisha musc/fascia add-on (x2) Debridement Note Debridement Note Wound debrided: ischial ulcer cluster Laterality: Left Wound Grade/Stage: Stage IV Type of Debridement: Excisional debridement Anesthesia Used: 4% Lidocaine Solution Depth: Down to and including healthy tissue, in the subcutaneous layer and to muscle Percentage of wound debrided: 100 Instrument Used: 7mm curette Tissue Removed: Non viable tissue and slough into the muscle Severity: Fat Layer Exposed Amount of bleeding with debridement: Mild Bleeding Controlled with: Pressure and Compression and gauze Patient tolerated procedure: Patient tolerated procedure well Post-Debridement Measurements and Additional Note: Post-Debridement Measurements/Treatment NIKA - Nurse 1 - General Ulcer Assessment Start: 04/12/23 10:58 Freq: Status: Active Protocol: WILLIAMS Activity Type Activity Date Activity User E-sign Co-sign Detail Recorded Client Recorded Date Recorded By Document 04/12/23 11:00 [facility] [id number] 04/12/23 11:10 [facility] Document 05/10/23 11:39 [facility] [id number] 05/10/23 11:42 [facility] 04/12/23 05/10/23 11:00 11:39 - Today's Visit Information Type of service Follow-up Visit Follow-up Visit (Physician/ROPE TWISTING MACHINE OPERATOR (Physician/ROPE TWISTING MACHINE OPERATOR ) ) Arrival Mode Wheelchair Wheelchair Transfer Assistance Other None Transfer Assist (Other) STAND BY Patient Identification Verified (Name & Yes Yes ) Patient Requires Transmission-Based No No Precautions Height and Weight Body Mass Index (BMI) 19.8 19.8 BMI Classification Normal Normal Vital Signs Temperature (97.8 F-99.1 F) 98.5 F 97.7 F L Temperature Source Temporal Temporal Pulse Rate (60-100) 114 H 62 Pulse Location Monitor Monitor Respiratory Rate (12-18) 16 20 H Respiratory rate source Observation Observation Oxygen Delivery Method Room Air Blood Pressure (90/60-120/80) 106/71 152/72 H Blood Pressure Mean (mm Hg) 82 98 Source Monitor Monitor Position Sitting Blood Pressure Location Left Arm History Since Last Visit- (Skip if this is Patient's initial visit) Have you changed medications since your No No last visit? Any new allergies or adverse reactions No No Had a fall/change in ADL's that may No No increase risk of falls Signs or symptoms of abuse and/or No No neglect since last visit Have you been in the hospital since your No No last visit? Has dressing in place as prescribed Yes Yes Has compression in place as prescribed N/A N/A Has offloadiing in place as prescribed N/A Yes Experienced any changes in pain level or No No management Pain Scale: 0-10 Numeric Is Patient Pain Free? Yes Yes - Nurse 1 - General Ulcer Measurement Start: 04/12/23 10:58 Freq: Status: Active Protocol: Activity Type Activity Date Activity User E-sign Co-sign Detail Recorded Client Recorded Date Recorded By Document 04/12/23 11:00 [facility] [id number] 04/12/23 11:10 [facility] Document 05/10/23 11:39 [facility] [id number] 05/10/23 11:42 [facility] 04/12/23 05/10/23 11:00 11:39 Wound Center Nurse 1 #8 L Ischium cluster -Combined with other wound No -Current Size (cm) - Length 8 8.6 -Current Size (cm) - Width 4 6.7 -Current Size (cm) - Depth 0.1 1.5 -Total Square Cm 32 57.62 -Date of Last Picture (Recall this 04/12/23 field) -Photo Taken Yes -Epithelialization Small 1-33% -Tunneling No -Undermining/Tunneling Yes -Undermining/Tunneling Starts (O'clock 4 4 ) -Undermining/Tunneling Ends (O'clock) 8 6 -Maximum Distance (cm) 0.9 1.5 -Circular Undermining No -Exudate Amt Medium Medium -Exudate Type Serosanguineous Serosanguineous -Wound Margin Thickened & Thickened & Rolled Under Rolled Under -Granulation Amt Large (67-100%) Medium (34-66%) -Granulation Quality Red Red -Slough/Fibrin Yes -Necrosis Amt Small (1-33%) Medium (34-66%) -Necrotic Tissue Type Adherent Slough Adherent Slough -Structure Exposed N/A -Texture (Steffi-wound Skin Appearance) Assessed, Scarring Scarring -Moisture (Steffi-wound Skin Appearance) Assessed No Abnormality -Color (Steffi-wound Skin Appearance) Assessed No Abnormality -Temperature (Steffi-wound Skin No Abnormality No Abnormality Appearance) (Pt Warm) (Pt Warm) -Tenderness on Palpation (Steffi-wound No Skin Appearance) -Ulcer Cleansing Rinsed/ Soap and Water Irrigated with Saline -Foul Odor after Cleansing No No -Anesthetic Used 5% Lidocaine Gel #7 R Ischium cluster -Combined with other wound No -Current Size (cm) - Length 3 3 -Current Size (cm) - Width 0.3 0.4 -Current Size (cm) - Depth 0.3 0.2 -Total Square Cm 0.9 1.2 -Date of Last Picture (Recall this 04/12/23 field) -Photo Taken Yes -Epithelialization None Present -Tunneling No -Undermining/Tunneling No -Circular Undermining No -Exudate Amt Medium Medium -Exudate Type Sanguineous Serosanguineous -Wound Margin Thickened & Thickened & Rolled Under Rolled Under -Granulation Amt Large (67-100%) Medium (34-66%) -Granulation Quality Red Red -Slough/Fibrin Yes -Necrosis Amt Small (1-33%) Medium (34-66%) -Necrotic Tissue Type Adherent Slough Adherent Slough -Structure Exposed N/A -Texture (Steffi-wound Skin Appearance) Assessed, Scarring Scarring -Moisture (Steffi-wound Skin Appearance) Assessed No Abnormality -Color (Steffi-wound Skin Appearance) Assessed No Abnormality -Temperature (Steffi-wound Skin No Abnormality No Abnormality Appearance) (Pt Warm) (Pt Warm) -Tenderness on Palpation (Steffi-wound No No Skin Appearance) -Ulcer Cleansing Rinsed/ Not Cleansed Irrigated with Saline -Foul Odor after Cleansing No No -Anesthetic Used 5% Lidocaine Gel WC - Nurse 2 - General Ulcer CM Notes Start: 04/12/23 10:58 Freq: Status: Active Protocol: Activity Type Activity Date Activity User E-sign Co-sign Detail Recorded Client Recorded Date Recorded By Document 04/12/23 11:30 [id number] 04/12/23 11:38 Document 05/10/23 11:55 [facility] [id number] 05/10/23 12:02 [facility] 04/12/23 05/10/23 11:30 11:55 Wound Center Nurse 2 #8 L Ischium cluster -Time 11:31 11:56 -Correct Patient Yes Yes -Correct Side, Site, Position Yes Yes -Correct Procedure Yes Yes -Procedure Performed Yes Yes -Type of Procedure Debridement Debridement -Clinical Debridement Muscle / Fascia Muscle / Fascia -Tissue Removed Muscle Muscle,Fascia -Post Debridement (cm) - Length 9.0 8.6 -Post Debridement (cm) - Width 7.4 4.4 -Post Debridement (cm) - Depth 1.5 2.4 -Total Square (Post) (cm) 66.60 37.84 -Area of Debridement (cm) - Length 9.0 8.6 -Area of Debridement (cm) - Width 7.4 4.4 -Total Square (Area) (cm) 66.60 37.84 -Tunneling No No -Undermining/Tunneling Yes Yes -Undermining/Tunneling Starts (O'clock 6 6 ) -Maximum Distance (cm) 1.0 1 -Circular Undermining No No -Wound/Ulcer Outcome Not Healed Not Healed -Ulcer Cleansing Rinsed/ Rinsed/ Irrigated with Irrigated with Saline Saline -Foul Odor after Cleansing No No -Bioengineered Tissue No No -Bleeding Controlled with Pressure Pressure -Treatment Response Procedure Procedure Tolerated Well Tolerated Well -Offloading No No -Pressure Reduction Wheelchair cushion -Debridement - Muscle / Fascia, 1st Yes Yes 20sq cm -Debridement, Muscle/Fascia, ea addt'l 3 2 20sq cm or part thereof #7 R Ischium cluster -Time 11:31 11:56 -Correct Patient Yes Yes -Correct Side, Site, Position Yes Yes -Correct Procedure Yes Yes -Procedure Performed Yes Yes -Type of Procedure Debridement Debridement -Clinical Debridement Muscle / Fascia Muscle / Fascia -Tissue Removed Muscle Muscle,Fascia -Post Debridement (cm) - Length 3.2 4.0 -Post Debridement (cm) - Width 1.0 1.0 -Post Debridement (cm) - Depth 0.2 0.2 -Total Square (Post) (cm) 3.20 4.00 -Area of Debridement (cm) - Length 3.2 4.0 -Area of Debridement (cm) - Width 1.0 1.0 -Total Square (Area) (cm) 3.20 4.00 -Tunneling No No -Undermining/Tunneling No No -Circular Undermining No No -Wound/Ulcer Outcome Not Healed Not Healed -Ulcer Cleansing Rinsed/ Rinsed/ Irrigated with Irrigated with Saline Saline -Foul Odor after Cleansing No No -Bioengineered Tissue No No -Bleeding Controlled with Pressure Silver Nitrate -Treatment Response Procedure Procedure Tolerated Well Tolerated Well -Offloading No No -Pressure Reduction Wheelchair Wheelchair cushion cushion -Debridement - Muscle / Fascia, 1st No No 20sq cm Pain Scale: 0-10 Numeric Is Patient Pain Free? Yes Yes WC - Nurse 3 - General Ulcer D/C NN Start: 04/12/23 10:58 Freq: Status: Active Protocol: Activity Type Activity Date Activity User E-sign Co-sign Detail Recorded Client Recorded Date Recorded By Document 04/12/23 11:50 MW [id number] 04/12/23 11:52 MW Document 05/10/23 12:10 BM[facility] [id number] 05/10/23 12:11 BMF Edit Result 05/10/23 12:10 BMF (1) [id number] 05/10/23 12:20 DL (1) #7 R Ischium cluster - Promogran 1 => 2 04/12/23 05/10/23 11:50 12:10 Wound Care Center Nurse 3 #8 L Ischium cluster -Ulcer Cleansing Rinsed/ Rinsed/ Irrigated with Irrigated with Saline Saline -Foul Odor after Cleansing No No -Negative Pressure Wound Therapy N/A -Primary Dressing Applied Hysept ($) -Other Dressing dakins moist gauze per dl stripping shovel oiler -Primary Dressing Covered/Secured with Secured with Secured with Tape Tape -Other Covering ABD abd #7 R Ischium cluster -Ulcer Cleansing Rinsed/ Rinsed/ Irrigated with Irrigated with Saline Saline -Foul Odor after Cleansing No -Primary Dressing Applied Promogran Promogran -Other Dressing abd -Primary Dressing Covered/Secured with Secured with Secured with Tape Tape -Other Covering ABD drsg per dl stripping shovel oiler -Promogran 1 2 Treatment Response Procedure Procedure Tolerated Well Tolerated Well Pain Scale: 0-10 Numeric Is Patient Pain Free? Yes Yes Teaching: Wound Center Dressing Your Wound -Person Taught Patient -Teaching Method Discussion, Demonstration -Response to teaching Verbalize understanding WC - Visit Discharge Discharge Condition Stable Stable Ambulatory Status Wheelchair Wheelchair Transportation TRANSPORT Private Auto SERVICE Medication Reconcilliation completed & No provided to patient/care provider Clinical Summary of Care Provided Yes Additional Wound Wound debrided: perianal/ischial ulcer Laterality: Right Wound Grade/Stage: Stage IV Type of Debridement: Excisional debridement Anesthesia Used: 4% Lidocaine Solution Depth: Down to and including healthy tissue, in the subcutaneous layer and to muscle Percentage of wound debrided: 100 Instrument Used: 3mm curette Tissue Removed: Non viable tissue and slough Severity: Fat Layer Exposed Amount of bleeding with debridement: Mild Bleeding Controlled with: Pressure and Compression and gauze Patient tolerated procedure: Patient tolerated procedure well Assessment/Plan Assessment/Plan (1) Pressure sore of left ischium, stage 4: CODE(S): L89.324 - Pressure ulcer of left buttock, stage 4 (2) Right ischial pressure sore, stage 4: CODE(S): L89.314 - Pressure ulcer of right buttock, stage 4 (3) Perineal ulcer: CODE(S): L98.499 - Non-pressure chronic ulcer of skin of other sites with unspecified severity QUALIFIERS: Non-pressure ulcer stage: unspecified non-pressure ulcer stage Qualified Code(s): L98.499 - Non-pressure chronic ulcer of skin of other sites with unspecified severity (4) Chronic osteomyelitis, pelvis: CODE(S): M86.659 - Other chronic osteomyelitis, unspecified thigh (5) Paraplegia at T4 level: CODE(S): G82.20 - Paraplegia, unspecified (6) History of tobacco use: CODE(S): Z87.891 - Personal history of nicotine dependence (7) Severe protein-calorie malnutrition: CODE(S): E43 - Unspecified severe protein-calorie malnutrition PLAN: Plan Patient was evaluated at the wound healing center today. Wound care - To the left ischial ulcer Dakins 0.25% moistened gauze topped with ABD/Super absorber dressing daily and prn. To the right ischial/steffi anal ulcer Promogran that can be moistened covered with gauze or ABD daily. Wash both ulcers with soap and water at the time of the dressing changes. Stressed with him that he needs to moistened Dakin's gauze over the ulcer, not just rinse the ulcer with dakins. He verbalized understanding. Encourage nutritional supplementation with protein to help the healing process. Left ischial wound culture obtained 12/28/22 which was positive MRSA, Staphylococcus haemolyticus, Corynebacterium striatum, Proteus mirabilis, Streptococcus group F. He was treated with Augmentin and Doxycycline. He was evaluated by a plastic surgeon at [facility] in April. They are doing further testing before he has any surgeries. Follow up four weeks. Call or come in sooner if develop any concerns.
== END 2023-05-10 23:59 | disposition home or self-care (01) ==
LOC: WC 11:15
PROVIDERS: PCP Internal Medicine; Visit Provider Nurse Practitioner Family
DX: L89.314 Pressure ulcer of right buttock, stage 4 (principal); L89.324 Pressure ulcer of left buttock, stage 4; G82.20 Paraplegia, unspecified; L98.492 Non-pressure chronic ulcer of skin of other sites with fat layer exposed; M86.68 Other chronic osteomyelitis, other site; Z79.899 Other long term (current) drug therapy; Z87.891 Personal history of nicotine dependence; Z86.14 Personal history of Methicillin resistant Staphylococcus aureus infection
CPT/HCPCS: 11043; 11046

== ENCOUNTER 2023-06-07 11:19 | Outpatient (RCR) | payer MEDICARE, MEDICAID, SELFPAY ==
[2023-05-11 00:16] VITALS: BP 152/72; PULSE 62; RESP 20; TEMP 36.5; BMI 19.8
[2023-06-07 11:04] VITALS: BP 118/59; PULSE 108; RESP 16; TEMP 35.7; BMI 19.8
--- NOTE | 2023-06-07 12:41 | PCM.WC.PN ---
History of Present Illness Date of Service: 06/07/23 Chief Complaint: Bilateral ischial pressure sores, Stage IV. History of Wound: Surgery 04/08/20 - 1. Excision bleeding right ischial/perineal pressure sore, Stage IV. 2. Control of prostatic bleeding with electrocautery and Surgicel hemostat. Wound Care - Left ischial ulcer and right ischial ulcer is Promogran topped with ABD daily. Wash both ulcers with soap and water at the time of the dressing change. Left ischial ulcer culture 12/28/22 positive for MRSA, Staphylococcus haemolyticus, Corynebacterium striatum, Proteus mirabilus, and Streptococcus group F. He was treated with Augmentin and Doxycycline. Wound culture from 03/02/22 positive for Pseudomonas aeroginosa, Morganella morganii sp sibonii, and Corynebacterium. Due to his allergies and the the sensitivity of the cultures, patient was referred to ID, who placed him on Augmentin and Cipro, which he currently is on and is tolerating. Wound culture from 01/20/21 positive for Proteus mirabilis, Cornybacterium minutissium and Bacteroides fragilis. He was referred to ID for antibiotic management, which he was placed on Cefdinir, Doxycycline and Flagyl for 10 days. Patient has long standing bilateral ischial pressure sores, Stage IV, with the left side extending to the femoral head and the right side extending to the perineal area and the prostate. Surgery would entail quite extensive excision with amputations at a tertiary center. Patient does not want to pursue any heroic surgeries at this time since it is not a guarantee his pressure issues won't recur. With aggressive amputations, his already tenuous balance would be even more disrupted. At the present time, we are providing conservative care on a monthly basis. He stated his right leg gets in the way when transferring. He underwent a right AKA on 06/12/20 in [place]. Wound culture was done on 04/22/20. It showed Morganella morganii, Pseudomonas aeroginosa, Streptococcus group F, and Bacteroides fragilis. He has a lot of antibiotic allergies. His only real option is IV antibiotics. Dr. Chester also saw him at the Wound Center and felt the wounds were colonized and held off on antibiotics at this time. If his clinical situation were to change, then would re-evaluate him for IV antibiotics at that time. Wound culture from 11/01/20 was positive for MRSA, E. coli, Proteus Mirabilis. He was treated with Augmentin and doxycycline. He had a cystectomy and a partial prostatectomy by Dr. Lala at [facility] on 08/04/22. He states he is feeling better than he was before having his bladder removed. Today he denies any fever, chills or nausea and vomiting. Progress of Wound: Left ischial ulcer cluster is dry. It continues to have crevices with significant depth/tunneling. Steffi wound is stable. Right ischial is stable. He saw a surgeon at [facility] for evaluation for his ulcers. He states he needs to get his GI issues under better control before he can have any further surgeries for his ulcers. Objective Data Objective Data Vital Signs: Vital Signs Temp Pulse Resp BP O2 Del Method 96.2 F L 108 H 16 118/59 L Room Air 06/07/23 11:04 06/07/23 11:04 06/07/23 11:04 06/07/23 11:04 06/07/23 11:04 Oxygen Delivery Method Room Air Body Mass Index (BMI) 19.8 Charges/Coding Procedures Integumentary 111xxx-113xx: 41915 Manisha musc/fascia 20 sq cm/< Add On Codes: 25831 Manisha musc/fascia add-on (x2) Debridement Note Debridement Note Wound debrided: ischial ulcer cluster Laterality: Left Wound Grade/Stage: Stage IV Type of Debridement: Excisional debridement Anesthesia Used: 4% Lidocaine Solution Depth: Down to and including healthy tissue, in the subcutaneous layer and to muscle Percentage of wound debrided: 100 Instrument Used: 7mm curette Tissue Removed: Non viable tissue and slough into the muscle Severity: Fat Layer Exposed Amount of bleeding with debridement: Mild Bleeding Controlled with: Pressure and Compression and gauze Patient tolerated procedure: Patient tolerated procedure well Post-Debridement Measurements and Additional Note: Post-Debridement Measurements/Treatment - Nurse 1 - General Ulcer Assessment Start: 06/07/23 11:04 Freq: Status: Active Protocol: WILLIAMS Activity Type Activity Date Activity User E-sign Co-sign Detail Recorded Client Recorded Date Recorded By Document 06/07/23 11:04 [facility] [id number] 06/07/23 11:14 [facility] 06/07/23 11:04 - Today's Visit Information Type of service 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 ) Arrival Mode Wheelchair Transfer Assistance Other Transfer Assist (Other) 1 Patient Identification Verified (Name & Yes ) Patient Requires Transmission-Based No Precautions Height and Weight Body Mass Index (BMI) 19.8 BMI Classification Normal Vital Signs Temperature (97.8 F-99.1 F) 96.2 F L Temperature Source Temporal Pulse Rate (60-100) 108 H Pulse Location Monitor Respiratory Rate (12-18) 16 Respiratory rate source Observation Oxygen Delivery Method Room Air Blood Pressure (90/60-120/80) 118/59 L Blood Pressure Mean (mm Hg) 78 Source Monitor Position Sitting Blood Pressure Location Left Arm History Since Last Visit- (Skip if this is Patient's initial visit) Have you changed medications since your No last visit? Any new allergies or adverse reactions No Had a fall/change in ADL's that may No increase risk of falls Signs or symptoms of abuse and/or No neglect since last visit Have you been in the hospital since your No last visit? Has dressing in place as prescribed Yes Has compression in place as prescribed N/A Has offloadiing in place as prescribed N/A Experienced any changes in pain level or No management Pain Scale: 0-10 Numeric Is Patient Pain Free? Yes - Nurse 1 - General Ulcer Measurement Start: 06/07/23 11:04 Freq: Status: Active Protocol: Activity Type Activity Date Activity User E-sign Co-sign Detail Recorded Client Recorded Date Recorded By Document 06/07/23 11:04 [facility] [id number] 06/07/23 11:14 [facility] 06/07/23 11:04 Wound Center Nurse 1 #8 L Ischium cluster -Combined with other wound No -Current Size (cm) - Length 4 -Current Size (cm) - Width 7.4 -Current Size (cm) - Depth 0.2 -Total Square Cm 29.6 -Epithelialization Small 1-33% -Tunneling No -Undermining/Tunneling Yes -Undermining/Tunneling Starts (O'clock 5 ) -Undermining/Tunneling Ends (O'clock) 7 -Maximum Distance (cm) 0.6 -Circular Undermining No -Exudate Amt Large -Exudate Type Serosanguineous -Wound Margin Thickened & Rolled Under -Granulation Amt Large (67-100%) -Granulation Quality Pale,Red -Slough/Fibrin Yes -Necrosis Amt Small (1-33%) -Necrotic Tissue Type Adherent Slough -Texture (Steffi-wound Skin Appearance) Assessed, Scarring -Moisture (Steffi-wound Skin Appearance) Assessed -Color (Steffi-wound Skin Appearance) Assessed -Temperature (Steffi-wound Skin No Abnormality Appearance) (Pt Warm) -Tenderness on Palpation (Steffi-wound No Skin Appearance) -Ulcer Cleansing Rinsed/ Irrigated with Saline -Foul Odor after Cleansing No #7 R Ischium cluster -Combined with other wound No -Current Size (cm) - Length 0.3 -Current Size (cm) - Width 2 -Current Size (cm) - Depth 0.3 -Total Square Cm 0.6 -Photo Taken No -Epithelialization Small 1-33% -Tunneling No -Undermining/Tunneling No -Circular Undermining No -Exudate Amt Medium -Exudate Type Serosanguineous -Wound Margin Thickened & Rolled Under -Granulation Amt Large (67-100%) -Granulation Quality Red -Slough/Fibrin Yes -Necrosis Amt Small (1-33%) -Necrotic Tissue Type Adherent Slough -Texture (Steffi-wound Skin Appearance) Assessed,Callus ,Scarring -Moisture (Steffi-wound Skin Appearance) Assessed, Maceration -Color (Steffi-wound Skin Appearance) Assessed -Temperature (Steffi-wound Skin No Abnormality Appearance) (Pt Warm) -Tenderness on Palpation (Steffi-wound No Skin Appearance) -Ulcer Cleansing Rinsed/ Irrigated with Saline -Foul Odor after Cleansing No WC - Nurse 2 - General Ulcer CM Notes Start: 06/07/23 11:04 Freq: Status: Active Protocol: Activity Type Activity Date Activity User E-sign Co-sign Detail Recorded Client Recorded Date Recorded By Document 06/07/23 11:37 DEBORAH [id number] 06/07/23 11:44 DEBORAH 06/07/23 11:37 Wound Center Nurse 2 #8 L Ischium cluster -Time 11:39 -Correct Patient Yes -Correct Side, Site, Position Yes -Correct Procedure Yes -Procedure Performed Yes -Type of Procedure Debridement -Clinical Debridement Muscle / Fascia -Tissue Removed Muscle -Post Debridement (cm) - Length 7.8 -Post Debridement (cm) - Width 5.5 -Post Debridement (cm) - Depth 1.5 -Total Square (Post) (cm) 42.90 -Area of Debridement (cm) - Length 7.8 -Area of Debridement (cm) - Width 5.5 -Total Square (Area) (cm) 42.90 -Tunneling No -Undermining/Tunneling No -Circular Undermining No -Wound/Ulcer Outcome Not Healed -Ulcer Cleansing Rinsed/ Irrigated with Saline -Foul Odor after Cleansing No -Bioengineered Tissue No -Bleeding Controlled with Pressure -Treatment Response Procedure Tolerated Well -Offloading No -Pressure Reduction Wheelchair cushion -Debridement - Muscle / Fascia, 1st No 20sq cm #7 R Ischium cluster -Time 11:43 -Correct Patient Yes -Correct Side, Site, Position Yes -Correct Procedure Yes -Procedure Performed Yes -Type of Procedure Debridement -Clinical Debridement Muscle / Fascia -Tissue Removed Muscle -Post Debridement (cm) - Length 2.8 -Post Debridement (cm) - Width 0.6 -Post Debridement (cm) - Depth 0.2 -Total Square (Post) (cm) 1.68 -Area of Debridement (cm) - Length 2.8 -Area of Debridement (cm) - Width 0.6 -Total Square (Area) (cm) 1.68 -Tunneling No -Undermining/Tunneling No -Circular Undermining No -Wound/Ulcer Outcome Not Healed -Ulcer Cleansing Rinsed/ Irrigated with Saline -Foul Odor after Cleansing No -Bioengineered Tissue No -Bleeding Controlled with Pressure -Treatment Response Procedure Tolerated Well -Offloading No -Pressure Reduction Wheelchair cushion -Debridement - Muscle / Fascia, 1st Yes 20sq cm -Debridement, Muscle/Fascia, ea addt'l 2 20sq cm or part thereof Pain Scale: 0-10 Numeric Is Patient Pain Free? Yes WC - Nurse 3 - General Ulcer D/C NN Start: 06/07/23 11:04 Freq: Status: Active Protocol: Activity Type Activity Date Activity User E-sign Co-sign Detail Recorded Client Recorded Date Recorded By Document 06/07/23 11:52 [facility] [id number] 06/07/23 11:53 [facility] 06/07/23 11:52 Wound Care Center Nurse 3 #8 L Ischium cluster -Ulcer Cleansing Rinsed/ Irrigated with Saline -Foul Odor after Cleansing No -Primary Dressing Applied Promogran -Other Dressing abd; per pl rn -Primary Dressing Covered/Secured with Secured with Tape -Promogran 1 #7 R Ischium cluster -Ulcer Cleansing Rinsed/ Irrigated with Saline -Foul Odor after Cleansing No -Primary Dressing Applied Promogran -Other Dressing abd; per pl rn -Primary Dressing Covered/Secured with Secured with Tape -Promogran 0 Treatment Response Procedure Tolerated Well Pain Scale: 0-10 Numeric Is Patient Pain Free? Yes WC - Visit Discharge Discharge Condition Stable Ambulatory Status Wheelchair Additional Wound Wound debrided: perianal/ischial ulcer Laterality: Right Wound Grade/Stage: Stage IV Type of Debridement: Excisional debridement Anesthesia Used: 4% Lidocaine Solution Depth: Down to and including healthy tissue, in the subcutaneous layer and to muscle Percentage of wound debrided: 100 Instrument Used: 3mm curette Tissue Removed: Non viable tissue and slough Severity: Fat Layer Exposed Amount of bleeding with debridement: Mild Bleeding Controlled with: Pressure and Compression and gauze Patient tolerated procedure: Patient tolerated procedure well Assessment/Plan Assessment/Plan (1) Pressure sore of left ischium, stage 4: CODE(S): L89.324 - Pressure ulcer of left buttock, stage 4 (2) Right ischial pressure sore, stage 4: CODE(S): L89.314 - Pressure ulcer of right buttock, stage 4 (3) Perineal ulcer: CODE(S): L98.499 - Non-pressure chronic ulcer of skin of other sites with unspecified severity QUALIFIERS: Non-pressure ulcer stage: unspecified non-pressure ulcer stage Qualified Code(s): L98.499 - Non-pressure chronic ulcer of skin of other sites with unspecified severity (4) Chronic osteomyelitis, pelvis: CODE(S): M86.659 - Other chronic osteomyelitis, unspecified thigh (5) Paraplegia at T4 level: CODE(S): G82.20 - Paraplegia, unspecified (6) History of tobacco use: CODE(S): Z87.891 - Personal history of nicotine dependence (7) Severe protein-calorie malnutrition: CODE(S): E43 - Unspecified severe protein-calorie malnutrition PLAN: Plan Patient was evaluated at the wound healing center today. Wound care - Promogram that can be moistened covered with gauze/ABD daily to both the left ischial ulcer and the right ischial/steffi anal ulcer. Wash both ulcers with soap and water at the time of the dressing changes. Stressed with him that he needs to moistened Dakin's gauze over the ulcer, not just rinse the ulcer with dakins. He verbalized understanding. Encourage nutritional supplementation with protein to help the healing process. Left ischial wound culture obtained 12/28/22 which was positive MRSA, Staphylococcus haemolyticus, Corynebacterium striatum, Proteus mirabilis, Streptococcus group F. He was treated with Augmentin and Doxycycline. He was evaluated by a plastic surgeon at [facility] in April. He states he needs his GI issues improved before he has any surgeries. Follow up four weeks. Call or come in sooner if develop any concerns.
== END 2023-06-10 23:59 | disposition home or self-care (01) ==
LOC: WC 11:19
PROVIDERS: PCP Internal Medicine; Referring Provider Internal Medicine; Visit Provider Nurse Practitioner Family
DX: L89.314 Pressure ulcer of right buttock, stage 4 (principal); L89.324 Pressure ulcer of left buttock, stage 4; G82.20 Paraplegia, unspecified; Z89.611 Acquired absence of right leg above knee; L98.492 Non-pressure chronic ulcer of skin of other sites with fat layer exposed; M86.68 Other chronic osteomyelitis, other site; Z86.14 Personal history of Methicillin resistant Staphylococcus aureus infection; Z87.891 Personal history of nicotine dependence; Z90.6 Acquired absence of other parts of urinary tract; Z90.79 Acquired absence of other genital organ(s)
CPT/HCPCS: 11043; 11046

== ENCOUNTER 2023-07-12 10:54 | Outpatient (RCR) | payer MEDICARE, MEDICAID, SELFPAY ==
[2023-06-11 00:28] VITALS: BP 118/59; PULSE 108; RESP 16; TEMP 35.7; BMI 19.8
[2023-07-12 11:09] VITALS: BP 147/118; PULSE 102; RESP 20; TEMP 36.4; BMI 19.8
--- NOTE | 2023-07-12 12:53 | PN.PCM_ITS ---
History of Present Illness Date of Service: 07/12/23 Chief Complaint: Bilateral ischial pressure sores, Stage IV. History of Wound: Surgery 04/08/20 - 1. Excision bleeding right ischial/perineal pressure sore, Stage IV. 2. Control of prostatic bleeding with electrocautery and Surgicel hemostat. Wound Care - Left ischial ulcer is Dakin's 0.25% moistened gauze topped with ABD daily. Right ischial ulcer is Promogran topped with ABD daily. Wash both ulcers with soap and water at the time of the dressing change. Left ischial ulcer culture 12/28/22 positive for MRSA, Staphylococcus haemolyticus, Corynebacterium striatum, Proteus mirabilus, and Streptococcus group F. He was treated with Augmentin and Doxycycline. Wound culture from 03/02/22 positive for Pseudomonas aeroginosa, Morganella morganii sp sibonii, and Corynebacterium. Due to his allergies and the the sensitivity of the cultures, patient was referred to ID, who placed him on Augmentin and Cipro, which he currently is on and is tolerating. Wound culture from 01/20/21 positive for Proteus mirabilis, Cornybacterium minut issium and Bacteroides fragilis. He was referred to ID for antibiotic management, which he was placed on Cefdinir, Doxycycline and Flagyl for 10 days. Patient has long standing bilateral ischial pressure sores, Stage IV, with the left side extending to the femoral head and the right side extending to the perineal area and the prostate. Surgery would entail quite extensive excision with amputations at a tertiary center. Patient does not want to pursue any heroic surgeries at this time since it is not a guarantee his pressure issues won't recur. With aggressive amputations, his already tenuous balance would be even more disrupted. At the present time, we are providing conservative care on a monthly basis. He stated his right leg gets in the way when transferring. He underwent a right AKA on 06/12/20 in [place]. Wound culture was done on 04/22/20. It showed Morganella morganii, Pseudomonas aeroginosa, Streptococcus group F, and Bacteroides fragilis. He has a lot of antibiotic allergies. His only real option is IV antibiotics. Dr. Chester also saw him at the [facility] and felt the wounds were colonized and held off on antibiotics at this time. If his clinical situation were to change, then would re-evaluate him for IV antibiotics at that time. Wound culture from 11/01/20 was positive for MRSA, E. coli, Proteus Mirabilis. He was treated with Augmentin and doxycycline. He had a cystectomy and a partial prostatectomy by Dr. Lala at [facility] on 08/04/22. He states he is feeling better than he was before having his bladder removed. Today he denies any fever, chills or nausea and vomiting. Progress of Wound: Left ischial ulcer cluster is dry. It continues to have crevices with significant depth/tunneling. Steffi wound is stable. Right ischial is stable. He saw a surgeon at [facility] for evaluation for his ulcers. He states he needs to get his GI issues under better control before he can have any further surgeries for his ulcers. Objective Data Objective Data Vital Signs: Vital Signs Temp Pulse Resp BP 97.6 F L 102 H 20 H 147/118 H 07/12/23 11:09 07/12/23 11:09 07/12/23 11:09 07/12/23 11:09 Body Mass Index (BMI) 19.8 Charges/Coding Procedures Integumentary 111xxx-113xx: 46480 Manisha musc/fascia 20 sq cm/< Add On Codes: 10468 Manisha musc/fascia add-on (x2) Debridement Note Debridement Note Wound debrided: ischial ulcer cluster Laterality: Left Wound Grade/Stage: Stage IV Type of Debridement: Excisional debridement Anesthesia Used: 4% Lidocaine Solution Depth: Down to and including healthy tissue, in the subcutaneous layer and to muscle Percentage of wound debrided: 100 Instrument Used: 7mm curette Tissue Removed: Non viable tissue and slough into the muscle Severity: Fat Layer Exposed Amount of bleeding with debridement: Mild Bleeding Controlled with: Pressure and Compression and gauze Patient tolerated procedure: Patient tolerated procedure well Post-Debridement Measurements and Additional Note: Post-Debridement Measurements/Treatment - Nurse 1 - General Ulcer Assessment Start: 07/12/23 11:03 Freq: Status: Active Protocol: TEDEXRobin Activity Type Activity Date Activity User E-sign Co-sign Detail Recorded Client Recorded Date Recorded By Document 07/12/23 11:09 PL Tablet 07/12/23 11:09 PL 07/12/23 11:09 - Today's Visit Information 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 Yes - Nurse 2 - General Ulcer CM Notes Start: 07/12/23 11:03 Freq: Status: Active Protocol: Activity Type Activity Date Activity User E-sign Co-sign Detail Recorded Client Recorded Date Recorded By Document 07/12/23 11:31 Laptop 07/12/23 11:37 Edit Result 07/12/23 11:31 JF (1) Laptop 07/12/23 11:38 JF (1) #8 L Ischium cluster - Bleeding Controlled with Pressure => Pressure,Silver => Nitrate 07/12/23 11:31 Wound Center Nurse 2 #8 L Ischium cluster -Time 11:34 -Correct Patient Yes -Correct Side, Site, Position Yes -Correct Procedure Yes -Procedure Performed Yes -Type of Procedure Debridement -Clinical Debridement Muscle / Fascia -Tissue Removed Muscle,Fascia -Post Debridement (cm) - Length 7.4 -Post Debridement (cm) - Width 6.0 -Post Debridement (cm) - Depth 1.5 -Total Square (Post) (cm) 44.40 -Area of Debridement (cm) - Length 7.4 -Area of Debridement (cm) - Width 6.0 -Total Square (Area) (cm) 44.40 -Tunneling No -Undermining/Tunneling Yes -Undermining/Tunneling Starts (O'clock 9 ) -Undermining/Tunneling Ends (O'clock) 11 -Maximum Distance (cm) 0.6 -Circular Undermining No -Wound/Ulcer Outcome Not Healed -Ulcer Cleansing Rinsed/ Irrigated with Saline -Foul Odor after Cleansing No -Bioengineered Tissue No -Bleeding Controlled with Pressure,Silver Nitrate -Treatment Response Procedure Tolerated Well -Offloading No -Debridement - Muscle / Fascia, 1st No 20sq cm #7 R Ischium cluster -Time 11:32 -Correct Patient Yes -Correct Side, Site, Position Yes -Correct Procedure Yes -Procedure Performed Yes -Type of Procedure Debridement -Clinical Debridement Muscle / Fascia -Tissue Removed Muscle,Fascia -Post Debridement (cm) - Length 3.2 -Post Debridement (cm) - Width 0.6 -Post Debridement (cm) - Depth 0.2 -Total Square (Post) (cm) 1.92 -Area of Debridement (cm) - Length 3.2 -Area of Debridement (cm) - Width 0.6 -Total Square (Area) (cm) 1.92 -Tunneling No -Undermining/Tunneling No -Circular Undermining No -Wound/Ulcer Outcome Not Healed -Ulcer Cleansing Rinsed/ Irrigated with Saline -Foul Odor after Cleansing No -Bioengineered Tissue No -Bleeding Controlled with Pressure -Treatment Response Procedure Tolerated Well -Offloading No -Debridement - Muscle / Fascia, 1st Yes 20sq cm -Debridement, Muscle/Fascia, ea addt'l 2 20sq cm or part thereof Pain Scale: 0-10 Numeric Is Patient Pain Free? Yes - Nurse 3 - General Ulcer D/C NN Start: 07/12/23 11:03 Freq: Status: Active Protocol: Activity Type Activity Date Activity User E-sign Co-sign Detail Recorded Client Recorded Date Recorded By Document 07/12/23 11:57 PL Tablet 07/12/23 11:59 PL 07/12/23 11:57 Wound Care Center Nurse 3 #8 L Ischium cluster -Ulcer Cleansing Rinsed/ Irrigated with Saline -Foul Odor after Cleansing No -Primary Dressing Applied Promogran -Other Dressing ABD -Primary Dressing Covered/Secured with Secured with Tape -Promogran 1 #7 R Ischium cluster -Ulcer Cleansing Rinsed/ Irrigated with Saline -Foul Odor after Cleansing No -Primary Dressing Applied Promogran -Other Dressing ABD -Primary Dressing Covered/Secured with Secured with Tape -Promogran 1 Pain Scale: 0-10 Numeric Is Patient Pain Free? Yes - Visit Discharge Discharge Condition Stable Ambulatory Status Wheelchair Additional Wound Wound debrided: perianal/ischial ulcer Laterality: Right Wound Grade/Stage: Stage IV Type of Debridement: Excisional debridement Anesthesia Used: 4% Lidocaine Solution Depth: Down to and including healthy tissue, in the subcutaneous layer and to muscle Percentage of wound debrided: 100 Instrument Used: 5mm curette Tissue Removed: Non viable tissue and slough into the muscle. Severity: Fat Layer Exposed Amount of bleeding with debridement: Mild Bleeding Controlled with: Pressure and Compression and gauze Patient tolerated procedure: Patient tolerated procedure well Assessment/Plan Assessment/Plan (1) Pressure sore of left ischium, stage 4: CODE(S): L89.324 - Pressure ulcer of left buttock, stage 4 (2) Right ischial pressure sore, stage 4: CODE(S): L89.314 - Pressure ulcer of right buttock, stage 4 (3) Perineal ulcer: CODE(S): L98.499 - Non-pressure chronic ulcer of skin of other sites with unspecified severity QUALIFIERS: Non-pressure ulcer stage: unspecified non-pressure ulcer stage Qualified Code(s): L98.499 - Non-pressure chronic ulcer of skin of other sites with unspecified severity (4) Chronic osteomyelitis, pelvis: CODE(S): M86.659 - Other chronic osteomyelitis, unspecified thigh (5) Paraplegia at T4 level: CODE(S): G82.20 - Paraplegia, unspecified (6) History of tobacco use: CODE(S): Z87.891 - Personal history of nicotine dependence (7) Severe protein-calorie malnutrition: CODE(S): E43 - Unspecified severe protein-calorie malnutrition PLAN: Plan Patient was evaluated at the wound healing center today. Wound care - Promogram that can be moistened covered with gauze/ABD daily to both the left ischial ulcer and the right ischial/steffi anal ulcer. Wash both ulcers with soap and water at the time of the dressing changes. Encourage nutritional supplementation with protein to help the healing process. Left ischial wound culture obtained 12/28/22 which was positive MRSA, Staphylococcus haemolyticus, Corynebacterium striatum, Proteus mirabilis, Streptococcus group F. He was treated with Augmentin and Doxycycline. He was evaluated by a plastic surgeon at [facility] in April 2023. He states he needs his GI issues improved before he has any surgeries. Follow up four weeks. Call or come in sooner if develop any concerns.
== END 2023-08-10 23:59 | disposition home or self-care (01) ==
LOC: WC 10:54
PROVIDERS: PCP Internal Medicine; Referring Provider Internal Medicine; Visit Provider Nurse Practitioner Family
DX: L89.314 Pressure ulcer of right buttock, stage 4 (principal); L89.324 Pressure ulcer of left buttock, stage 4; G82.20 Paraplegia, unspecified; L98.492 Non-pressure chronic ulcer of skin of other sites with fat layer exposed; M86.68 Other chronic osteomyelitis, other site; Z79.899 Other long term (current) drug therapy; Z87.891 Personal history of nicotine dependence; Z86.14 Personal history of Methicillin resistant Staphylococcus aureus infection
CPT/HCPCS: 11043; 11046

== ENCOUNTER 2023-08-23 10:50 | Outpatient (RCR) | payer MEDICARE, MEDICAID, SELFPAY ==
[2023-08-11 00:28] VITALS: BP 147/118; PULSE 102; RESP 20; TEMP 36.4; BMI 19.8
[2023-08-23 10:55] VITALS: TEMP 36.3; BMI 19.8
--- NOTE | 2023-08-23 12:10 | PCM.WC.PN ---
History of Present Illness Date of Service: 08/23/23 Chief Complaint: Bilateral ischial pressure sores, Stage IV. History of Wound: Surgery 04/08/20 - 1. Excision bleeding right ischial/perineal pressure sore, Stage IV. 2. Control of prostatic bleeding with electrocautery and Surgicel hemostat. Wound Care - Left ischial ulcer is Dakin's 0.25% moistened gauze topped with ABD daily. Right ischial ulcer is Promogran topped with ABD daily. Wash both ulcers with soap and water at the time of the dressing change. Left ischial ulcer culture 12/28/22 positive for MRSA, Staphylococcus haemolyticus, Corynebacterium striatum, Proteus mirabilus, and Streptococcus group F. He was treated with Augmentin and Doxycycline. Wound culture from 03/02/22 positive for Pseudomonas aeroginosa, Morganella morganii sp sibonii, and Corynebacterium. Due to his allergies and the the sensitivity of the cultures, patient was referred to ID, who placed him on Augmentin and Cipro, which he currently is on and is tolerating. Wound culture from 01/20/21 positive for Proteus mirabilis, Cornybacterium minutissium and Bacteroides fragilis. He was referred to ID for antibiotic management, which he was placed on Cefdinir, Doxycycline and Flagyl for 10 days. Patient has long standing bilateral ischial pressure sores, Stage IV, with the left side extending to the femoral head and the right side extending to the perineal area and the prostate. Surgery would entail quite extensive excision with amputations at a tertiary center. Patient does not want to pursue any heroic surgeries at this time since it is not a guarantee his pressure issues won't recur. With aggressive amputations, his already tenuous balance would be even more disrupted. At the present time, we are providing conservative care on a monthly basis. He stated his right leg gets in the way when transferring. He underwent a right AKA on 06/12/20 in [place]. Wound culture was done on 04/22/20. It showed Morganella morganii, Pseudomonas aeroginosa, Streptococcus group F, and Bacteroides fragilis. He has a lot of antibiotic allergies. His only real option is IV antibiotics. Dr. Chester also saw him at the Wound Center and felt the wounds were colonized and held off on antibiotics at this time. If his clinical situation were to change, then would re-evaluate him for IV antibiotics at that time. Wound culture from 11/01/20 was positive for MRSA, E. coli, Proteus Mirabilis. He was treated with Augmentin and doxycycline. He had a cystectomy and a partial prostatectomy by Dr. Lala at [facility] on 08/04/22. He states he is feeling better than he was before having his bladder removed. Today he denies any fever, chills or nausea and vomiting. Progress of Wound: Left ischial ulcer cluster is dry. It continues to have crevices with significant depth/tunneling. Steffi wound is stable. Right ischial is stable, there is thickened edges that are difficult to debride. Objective Data Objective Data Vital Signs: Vital Signs Temp Pulse Resp BP 97.3 F L 102 H 20 H 147/118 H 08/23/23 10:55 08/11/23 00:28 08/11/23 00:28 08/11/23 00:28 Body Mass Index (BMI) 19.8 Charges/Coding Procedures Integumentary 111xxx-113xx: 22721 Manisha musc/fascia 20 sq cm/< Add On Codes: 50732 Manisha musc/fascia add-on Debridement Note Debridement Note Wound debrided: ischial ulcer cluster Laterality: Left Wound Grade/Stage: Stage IV Type of Debridement: Excisional debridement Anesthesia Used: 4% Lidocaine Solution Depth: Down to and including healthy tissue, in the subcutaneous layer and to muscle Percentage of wound debrided: 100 Instrument Used: 5mm curette Tissue Removed: Non viable tissue and slough into the muscle Severity: Fat Layer Exposed Amount of bleeding with debridement: Mild Bleeding Controlled with: Pressure and Compression and gauze Patient tolerated procedure: Patient tolerated procedure well Post-Debridement Measurements and Additional Note: Post-Debridement Measurements/Treatment - Nurse 1 - General Ulcer Assessment Start: 08/23/23 10:53 Freq: Status: Active Protocol: WILLIAMS Activity Type Activity Date Activity User E-sign Co-sign Detail Recorded Client Recorded Date Recorded By Document 08/23/23 10:55 [facility] Desktop 08/23/23 11:01 [facility] 08/23/23 10:55 - Today's Visit Information Type of service Follow-up Visit (Physician/PRODUCT EVANGELIST ) Arrival Mode Wheelchair Transfer Assistance None Patient Identification Verified (Name & Yes ) Patient Requires Transmission-Based No Precautions Height and Weight Body Mass Index (BMI) 19.8 BMI Classification Normal Vital Signs Temperature (97.8 F-99.1 F) 97.3 F L Temperature Source Temporal Pulse Location Monitor Source Monitor Position Sitting Blood Pressure Location Left Arm History Since Last Visit- (Skip if this is Patient's initial visit) Have you changed medications since your No last visit? Any new allergies or adverse reactions No Had a fall/change in ADL's that may No increase risk of falls Signs or symptoms of abuse and/or No neglect since last visit Have you been in the hospital since your No last visit? Has dressing in place as prescribed Yes Has compression in place as prescribed N/A Has offloadiing in place as prescribed N/A Experienced any changes in pain level or No management Pain Scale: 0-10 Numeric Is Patient Pain Free? Yes WC - Nurse 1 - General Ulcer Measurement Start: 08/23/23 10:53 Freq: Status: Active Protocol: Activity Type Activity Date Activity User E-sign Co-sign Detail Recorded Client Recorded Date Recorded By Document 08/23/23 10:55 [facility] Desktop 08/23/23 11:01 [facility] 08/23/23 10:55 Wound Center Nurse 1 #8 L Ischium cluster -Combined with other wound No -Current Size (cm) - Length 0.1 -Current Size (cm) - Width 0.1 -Current Size (cm) - Depth 0.1 -Total Square Cm 0.01 -Epithelialization Large 67-100% -Texture (Steffi-wound Skin Appearance) Assessed, Scarring -Moisture (Steffi-wound Skin Appearance) Assessed,Dry/ Scaly -Color (Steffi-wound Skin Appearance) Assessed -Temperature (Steffi-wound Skin No Abnormality Appearance) (Pt Warm) -Tenderness on Palpation (Steffi-wound No Skin Appearance) -Ulcer Cleansing Soap and Water -Foul Odor after Cleansing No #7 R Ischium cluster -Combined with other wound No -Current Size (cm) - Length 2.2 -Current Size (cm) - Width 0.4 -Current Size (cm) - Depth 0.3 -Total Square Cm 0.88 -Photo Taken No -Epithelialization Small 1-33% -Tunneling No -Undermining/Tunneling No -Circular Undermining No -Exudate Amt Medium -Exudate Type Serosanguineous -Wound Margin Distinct, Outline Attached -Granulation Amt Large (67-100%) -Granulation Quality Red -Slough/Fibrin Yes -Necrosis Amt Small (1-33%) -Necrotic Tissue Type Adherent Slough -Texture (Steffi-wound Skin Appearance) Assessed, Scarring -Moisture (Steffi-wound Skin Appearance) Assessed, Maceration -Color (Steffi-wound Skin Appearance) Assessed -Temperature (Steffi-wound Skin No Abnormality Appearance) (Pt Warm) -Tenderness on Palpation (Steffi-wound No Skin Appearance) -Ulcer Cleansing Soap and Water -Foul Odor after Cleansing No WC - Nurse 2 - General Ulcer CM Notes Start: 08/23/23 10:53 Freq: Status: Active Protocol: Activity Type Activity Date Activity User E-sign Co-sign Detail Recorded Client Recorded Date Recorded By Document 08/23/23 11:29 Laptop 08/23/23 11:36 08/23/23 11:29 Wound Center Nurse 2 #8 L Ischium cluster -Time 11:29 -Correct Patient Yes -Correct Side, Site, Position Yes -Correct Procedure Yes -Procedure Performed Yes -Type of Procedure Debridement -Clinical Debridement Muscle / Fascia -Tissue Removed Muscle,Fascia -Post Debridement (cm) - Length 7.0 -Post Debridement (cm) - Width 3.5 -Post Debridement (cm) - Depth 1.4 -Total Square (Post) (cm) 24.50 -Area of Debridement (cm) - Length 7.0 -Area of Debridement (cm) - Width 3.5 -Total Square (Area) (cm) 24.50 -Tunneling Yes -Tunneling Position (O'clock) 9 -Tunneling Distance (cm) 0.5 -Undermining/Tunneling No -Circular Undermining No -Wound/Ulcer Outcome Not Healed -Ulcer Cleansing Rinsed/ Irrigated with Saline -Foul Odor after Cleansing No -Bioengineered Tissue No -Bleeding Controlled with Pressure -Treatment Response Procedure Tolerated Well -Offloading No -Pressure Reduction Wheelchair cushion -Debridement - Muscle / Fascia, 1st No 20sq cm #7 R Ischium cluster -Time 11:30 -Correct Patient Yes -Correct Side, Site, Position Yes -Correct Procedure Yes -Procedure Performed Yes -Type of Procedure Debridement -Clinical Debridement Muscle / Fascia -Tissue Removed Muscle,Fascia -Post Debridement (cm) - Length 4.5 -Post Debridement (cm) - Width 0.8 -Post Debridement (cm) - Depth 0.3 -Total Square (Post) (cm) 3.60 -Area of Debridement (cm) - Length 4.5 -Area of Debridement (cm) - Width 0.8 -Total Square (Area) (cm) 3.60 -Tunneling No -Undermining/Tunneling No -Circular Undermining No -Wound/Ulcer Outcome Not Healed -Ulcer Cleansing Rinsed/ Irrigated with Saline -Foul Odor after Cleansing No -Bioengineered Tissue No -Bleeding Controlled with Pressure -Treatment Response Procedure Tolerated Well -Offloading No -Debridement - Muscle / Fascia, 1st Yes 20sq cm -Debridement, Muscle/Fascia, ea addt'l 1 20sq cm or part thereof Pain Scale: 0-10 Numeric Is Patient Pain Free? Yes - Nurse 3 - General Ulcer D/C NN Start: 08/23/23 10:53 Freq: Status: Active Protocol: Activity Type Activity Date Activity User E-sign Co-sign Detail Recorded Client Recorded Date Recorded By Document 08/23/23 11:49 [facility] Desktop 08/23/23 11:50 [facility] 08/23/23 11:49 Wound Care Center Nurse 3 #8 L Ischium cluster -Ulcer Cleansing Rinsed/ Irrigated with Saline -Foul Odor after Cleansing No -Primary Dressing Applied NonAdherent Contact Layer, Promogran -Other Dressing ABD; PER GM RN -Primary Dressing Covered/Secured with Dry Gauze, Secured with Tape -Other Covering SAMPLES SENT PER CM -Promogran 0 #7 R Ischium cluster -Ulcer Cleansing Rinsed/ Irrigated with Saline -Foul Odor after Cleansing No -Primary Dressing Applied NonAdherent Contact Layer, Promogran -Other Dressing PER GM RN -Primary Dressing Covered/Secured with Dry Gauze, Secured with Tape -Promogran 0 Treatment Response Procedure Tolerated Well Pain Scale: 0-10 Numeric Is Patient Pain Free? Yes - Visit Discharge Discharge Condition Stable Ambulatory Status Wheelchair Additional Wound Wound debrided: perianal/ischial ulcer Laterality: Right Wound Grade/Stage: Stage IV Type of Debridement: Excisional debridement Anesthesia Used: 4% Lidocaine Solution Depth: Down to and including healthy tissue, in the subcutaneous layer and to muscle Percentage of wound debrided: 100 Instrument Used: 5mm curette Tissue Removed: Non viable tissue and slough into the muscle. Severity: Fat Layer Exposed Amount of bleeding with debridement: Mild Bleeding Controlled with: Pressure and Compression and gauze Patient tolerated procedure: Patient tolerated procedure well Assessment/Plan Assessment/Plan (1) Pressure sore of left ischium, stage 4: CODE(S): L89.324 - Pressure ulcer of left buttock, stage 4 (2) Right ischial pressure sore, stage 4: CODE(S): L89.314 - Pressure ulcer of right buttock, stage 4 (3) Perineal ulcer: CODE(S): L98.499 - Non-pressure chronic ulcer of skin of other sites with unspecified severity QUALIFIERS: Non-pressure ulcer stage: unspecified non-pressure ulcer stage Qualified Code(s): L98.499 - Non-pressure chronic ulcer of skin of other sites with unspecified severity (4) Chronic osteomyelitis, pelvis: CODE(S): M86.659 - Other chronic osteomyelitis, unspecified thigh (5) Paraplegia at T4 level: CODE(S): G82.20 - Paraplegia, unspecified (6) History of tobacco use: CODE(S): Z87.891 - Personal history of nicotine dependence (7) Severe protein-calorie malnutrition: CODE(S): E43 - Unspecified severe protein-calorie malnutrition PLAN: Plan Patient was evaluated at the wound healing center today. Wound care - Promogram that can be moistened covered with gauze/ABD daily to both the left ischial ulcer and the right ischial/steffi anal ulcer. Wash both ulcers with soap and water at the time of the dressing changes. Encourage nutritional supplementation with protein to help the healing process. Left ischial wound culture obtained 12/28/22 which was positive MRSA, Staphylococcus haemolyticus, Corynebacterium striatum, Proteus mirabilis, Streptococcus group F. He was treated with Augmentin and Doxycycline. He was evaluated by a plastic surgeon at [facility] in April 2023. He states he needs his GI issues improved before he has any surgeries. Follow up four weeks. Call or come in sooner if develop any concerns.
== END 2023-09-09 23:59 | disposition home or self-care (01) ==
LOC: WC 10:50
PROVIDERS: PCP Internal Medicine; Referring Provider Internal Medicine; Visit Provider Nurse Practitioner Family
DX: L89.314 Pressure ulcer of right buttock, stage 4 (principal); L89.324 Pressure ulcer of left buttock, stage 4; G82.20 Paraplegia, unspecified; L98.492 Non-pressure chronic ulcer of skin of other sites with fat layer exposed; M86.68 Other chronic osteomyelitis, other site; Z87.891 Personal history of nicotine dependence; Z79.899 Other long term (current) drug therapy; Z86.14 Personal history of Methicillin resistant Staphylococcus aureus infection
CPT/HCPCS: 11043; 11046

== ENCOUNTER 2023-09-20 10:43 | Outpatient (RCR) | payer MEDICARE, MEDICAID, SELFPAY ==
[2023-09-10 00:38] VITALS: BP 147/118; PULSE 102; RESP 20; TEMP 36.3; BMI 19.8
[2023-09-20 11:05] VITALS: BP 123/73; PULSE 82; RESP 16; TEMP 36; BMI 19.8
--- NOTE | 2023-09-20 12:13 | PN.PCM_ITS ---
History of Present Illness Date of Service: 09/20/23 Chief Complaint: Bilateral ischial pressure sores, Stage IV. History of Wound: Surgery 04/08/20 - 1. Excision bleeding right ischial/perineal pressure sore, Stage IV. 2. Control of prostatic bleeding with electrocautery and Surgicel hemostat. Wound Care - Left ischial ulcer is Dakin's 0.25% moistened gauze topped with ABD daily. Right ischial ulcer is Promogran topped with ABD daily. Wash both ulcers with soap and water at the time of the dressing change. Left ischial ulcer culture 12/28/22 positive for MRSA, Staphylococcus haemolyticus, Corynebacterium striatum, Proteus mirabilus, and Streptococcus group F. He was treated with Augmentin and Doxycycline. Wound culture from 03/02/22 positive for Pseudomonas aeroginosa, Morganella morganii sp sibonii, and Corynebacterium. Due to his allergies and the the sensitivity of the cultures, patient was referred to ID, who placed him on Augmentin and Cipro, which he currently is on and is tolerating. Wound culture from 01/20/21 positive for Proteus mirabilis, Cornybacterium minut issium and Bacteroides fragilis. He was referred to ID for antibiotic management, which he was placed on Cefdinir, Doxycycline and Flagyl for 10 days. Patient has long standing bilateral ischial pressure sores, Stage IV, with the left side extending to the femoral head and the right side extending to the perineal area and the prostate. Surgery would entail quite extensive excision with amputations at a tertiary center. Patient does not want to pursue any heroic surgeries at this time since it is not a guarantee his pressure issues won't recur. With aggressive amputations, his already tenuous balance would be even more disrupted. At the present time, we are providing conservative care on a monthly basis. He stated his right leg gets in the way when transferring. He underwent a right AKA on 06/12/20 in [place]. Wound culture was done on 04/22/20. It showed Morganella morganii, Pseudomonas aeroginosa, Streptococcus group F, and Bacteroides fragilis. He has a lot of antibiotic allergies. His only real option is IV antibiotics. Dr. Chester also saw him at the Wound Center and felt the wounds were colonized and held off on antibiotics at this time. If his clinical situation were to change, then would re-evaluate him for IV antibiotics at that time. Wound culture from 11/01/20 was positive for MRSA, E. coli, Proteus Mirabilis. He was treated with Augmentin and doxycycline. He had a cystectomy and a partial prostatectomy by Dr. Lala at [facility] on 08/04/22. He states he is feeling better than he was before having his bladder removed. Today he denies any fever, chills or nausea and vomiting. Progress of Wound: Left ischial ulcer cluster is stable. It continues to have crevices with significant depth/tunneling. There are patches of dryness. Steffi wound is stable. Right ischial is stable with thickened scarring surrounding the ulcer. Base of ulcer is pink. Objective Data Objective Data Vital Signs: Vital Signs Temp Pulse Resp BP O2 Del Method 96.8 F L 82 16 123/73 H Room Air 09/20/23 11:05 09/20/23 11:05 09/20/23 11:05 09/20/23 11:05 09/20/23 11:05 Oxygen Delivery Method Room Air Body Mass Index (BMI) 19.8 Charges/Coding Procedures Integumentary 111xxx-113xx: 08379 Manisha musc/fascia 20 sq cm/< Add On Codes: 59754 Manisha musc/fascia add-on Debridement Note Debridement Note Wound debrided: ischial ulcer cluster Laterality: Left Wound Grade/Stage: Stage IV Type of Debridement: Excisional debridement Anesthesia Used: 4% Lidocaine Solution Depth: Down to and including healthy tissue, in the subcutaneous layer and to muscle Percentage of wound debrided: 100 Instrument Used: 5mm curette Tissue Removed: Non viable tissue and slough into the muscle Severity: Fat Layer Exposed Amount of bleeding with debridement: Mild Bleeding Controlled with: Pressure and Compression and gauze Patient tolerated procedure: Patient tolerated procedure well Post-Debridement Measurements and Additional Note: Post-Debridement Measurements/Treatment - Nurse 1 - General Ulcer Assessment Start: 09/20/23 11:04 Freq: Status: Active Protocol: WILLIAMS Activity Type Activity Date Activity User E-sign Co-sign Detail Recorded Client Recorded Date Recorded By Document 09/20/23 11:[address] [facility] Desktop 09/20/23 11:[address] [facility] 09/20/23 11:05 - Today's Visit Information Type of service Follow-up Visit (Physician/BREAD DUMPER ) Arrival Mode Wheelchair Transfer Assistance Other Transfer Assist (Other) standby Patient Identification Verified (Name & Yes ) Patient Requires Transmission-Based No Precautions Height and Weight Body Mass Index (BMI) 19.8 BMI Classification Normal Vital Signs Temperature (97.8 F-99.1 F) 96.8 F L Temperature Source Temporal Pulse Rate (60-100) 82 Pulse Location Monitor Respiratory Rate (12-18) 16 Respiratory rate source Observation Oxygen Delivery Method Room Air Blood Pressure (90/60-120/80) 123/73 H Blood Pressure Mean (mm Hg) 89 Source Monitor Position Sitting Blood Pressure Location Left Arm History Since Last Visit- (Skip if this is Patient's initial visit) Have you changed medications since your No last visit? Any new allergies or adverse reactions No Had a fall/change in ADL's that may No increase risk of falls Signs or symptoms of abuse and/or No neglect since last visit Have you been in the hospital since your No last visit? Has dressing in place as prescribed Yes Has compression in place as prescribed N/A Has offloadiing in place as prescribed N/A Experienced any changes in pain level or No management Pain Scale: 0-10 Numeric Is Patient Pain Free? Yes - Nurse 1 - General Ulcer Measurement Start: 09/20/23 11:04 Freq: Status: Active Protocol: Activity Type Activity Date Activity User E-sign Co-sign Detail Recorded Client Recorded Date Recorded By Document 09/20/23 11:[address] [facility] Desktop 09/20/23 11:[address] [facility] 09/20/23 11:05 Wound Center Nurse 1 #8 L Ischium cluster -Combined with other wound No -Current Size (cm) - Length 2.7 -Current Size (cm) - Width 0.5 -Current Size (cm) - Depth 0.2 -Total Square Cm 1.35 -Date of Last Picture (Recall this 09/20/23 field) -Photo Taken Yes -Epithelialization Large 67-100% -Tunneling No -Undermining/Tunneling No -Circular Undermining No -Exudate Amt Small -Exudate Type Serosanguineous -Wound Margin Thickened & Rolled Under -Granulation Amt Large (67-100%) -Granulation Quality Red -Slough/Fibrin Yes -Necrosis Amt Small (1-33%) -Necrotic Tissue Type Adherent Slough -Texture (Steffi-wound Skin Appearance) Assessed, Scarring -Moisture (Steffi-wound Skin Appearance) Assessed,Dry/ Scaly -Color (Steffi-wound Skin Appearance) Assessed -Temperature (Steffi-wound Skin No Abnormality Appearance) (Pt Warm) -Tenderness on Palpation (Steffi-wound No Skin Appearance) -Ulcer Cleansing Rinsed/ Irrigated with Saline -Foul Odor after Cleansing No -Anesthetic Used 5% Lidocaine Gel #7 R Ischium cluster -Combined with other wound No -Current Size (cm) - Length 3 -Current Size (cm) - Width 0.5 -Current Size (cm) - Depth 0.1 -Total Square Cm 1.5 -Date of Last Picture (Recall this 09/20/23 field) -Photo Taken Yes -Epithelialization Small 1-33% -Tunneling No -Undermining/Tunneling No -Circular Undermining No -Exudate Amt Medium -Exudate Type Serosanguineous -Wound Margin Thickened & Rolled Under -Granulation Amt Large (67-100%) -Granulation Quality Red -Slough/Fibrin Yes -Necrosis Amt Small (1-33%) -Necrotic Tissue Type Adherent Slough -Texture (Steffi-wound Skin Appearance) Assessed, Scarring -Moisture (Steffi-wound Skin Appearance) Assessed,Dry/ Scaly -Color (Steffi-wound Skin Appearance) Assessed -Temperature (Steffi-wound Skin No Abnormality Appearance) (Pt Warm) -Tenderness on Palpation (Steffi-wound No Skin Appearance) -Ulcer Cleansing Rinsed/ Irrigated with Saline -Foul Odor after Cleansing No -Anesthetic Used 5% Lidocaine Gel WC - Nurse 2 - General Ulcer CM Notes Start: 09/20/23 11:04 Freq: Status: Active Protocol: Activity Type Activity Date Activity User E-sign Co-sign Detail Recorded Client Recorded Date Recorded By Document 09/20/23 11:18 Laptop 09/20/23 11:25 09/20/23 11:18 Wound Center Nurse 2 #8 L Ischium cluster -Time 11:18 -Correct Patient Yes -Correct Side, Site, Position Yes -Correct Procedure Yes -Procedure Performed Yes -Type of Procedure Debridement -Clinical Debridement Muscle / Fascia -Tissue Removed Muscle,Fascia -Post Debridement (cm) - Length 6.5 -Post Debridement (cm) - Width 5.5 -Post Debridement (cm) - Depth 1.0 -Total Square (Post) (cm) 35.75 -Area of Debridement (cm) - Length 6.5 -Area of Debridement (cm) - Width 5.5 -Total Square (Area) (cm) 35.75 -Tunneling No -Undermining/Tunneling No -Circular Undermining No -Wound/Ulcer Outcome Not Healed -Ulcer Cleansing Rinsed/ Irrigated with Saline -Foul Odor after Cleansing No -Bioengineered Tissue No -Bleeding Controlled with Pressure -Treatment Response Procedure Tolerated Well -Offloading No -Debridement - Muscle / Fascia, 1st No 20sq cm #7 R Ischium cluster -Time 11:18 -Correct Patient Yes -Correct Side, Site, Position Yes -Correct Procedure Yes -Procedure Performed Yes -Type of Procedure Debridement -Clinical Debridement Muscle / Fascia -Tissue Removed Muscle,Fascia -Post Debridement (cm) - Length 3.3 -Post Debridement (cm) - Width 0.5 -Post Debridement (cm) - Depth 0.3 -Total Square (Post) (cm) 1.65 -Area of Debridement (cm) - Length 3.3 -Area of Debridement (cm) - Width 0.5 -Total Square (Area) (cm) 1.65 -Tunneling No -Undermining/Tunneling No -Circular Undermining No -Wound/Ulcer Outcome Not Healed -Ulcer Cleansing Rinsed/ Irrigated with Saline -Foul Odor after Cleansing No -Bioengineered Tissue No -Bleeding Controlled with Pressure -Treatment Response Procedure Tolerated Well -Offloading No -Pressure Reduction Mattress overlay -Debridement - Muscle / Fascia, 1st Yes 20sq cm -Debridement, Muscle/Fascia, ea addt'l 1 20sq cm or part thereof Pain Scale: 0-10 Numeric Is Patient Pain Free? Yes WC - Nurse 3 - General Ulcer D/C NN Start: 09/20/23 11:04 Freq: Status: Active Protocol: Activity Type Activity Date Activity User E-sign Co-sign Detail Recorded Client Recorded Date Recorded By Document 09/20/23 11:[address] [facility] [id number] 09/20/23 11:[address] [facility] 09/20/23 11:43 Wound Care Center Nurse 3 #8 L Ischium cluster -Ulcer Cleansing Rinsed/ Irrigated with Saline -Foul Odor after Cleansing No -Primary Dressing Applied NonAdherent Contact Layer, Promogran -Primary Dressing Covered/Secured with Dry Gauze, Secured with Tape -Other Covering ABD -Promogran 1 #7 R Ischium cluster -Ulcer Cleansing Rinsed/ Irrigated with Saline -Foul Odor after Cleansing No -Primary Dressing Applied NonAdherent Contact Layer, Promogran -Primary Dressing Covered/Secured with Dry Gauze, Secured with Tape -Other Covering ABD -Optilok 8x12 0 -Promogran 0 Treatment Response Procedure Tolerated Well Pain Scale: 0-10 Numeric Is Patient Pain Free? Yes WC - Visit Discharge Discharge Condition Stable Ambulatory Status Wheelchair Transportation Private Auto Additional Wound Wound debrided: perianal/ischial ulcer Laterality: Right Wound Grade/Stage: Stage IV Type of Debridement: Excisional debridement Anesthesia Used: 4% Lidocaine Solution Depth: Down to and including healthy tissue, in the subcutaneous layer and to muscle Percentage of wound debrided: 100 Instrument Used: 5mm curette Tissue Removed: Non viable tissue and slough into the muscle. Severity: Fat Layer Exposed Amount of bleeding with debridement: Mild Bleeding Controlled with: Pressure and Compression and gauze Patient tolerated procedure: Patient tolerated procedure well Assessment/Plan Assessment/Plan (1) Pressure sore of left ischium, stage 4: CODE(S): L89.324 - Pressure ulcer of left buttock, stage 4 (2) Right ischial pressure sore, stage 4: CODE(S): L89.314 - Pressure ulcer of right buttock, stage 4 (3) Perineal ulcer: CODE(S): L98.499 - Non-pressure chronic ulcer of skin of other sites with unspecified severity QUALIFIERS: Non-pressure ulcer stage: unspecified non-pressure ulcer stage Qualified Code(s): L98.499 - Non-pressure chronic ulcer of skin of other sites with unspecified severity (4) Chronic osteomyelitis, pelvis: CODE(S): M86.659 - Other chronic osteomyelitis, unspecified thigh (5) Paraplegia at T4 level: CODE(S): G82.20 - Paraplegia, unspecified (6) History of tobacco use: CODE(S): Z87.891 - Personal history of nicotine dependence (7) Severe protein-calorie malnutrition: CODE(S): E43 - Unspecified severe protein-calorie malnutrition PLAN: Plan Patient was evaluated at the wound healing center today. Wound care - Moistened Promogram covered with gauze/ABD daily to both the left ischial ulcer and the right ischial/steffi anal ulcer. Wash both ulcers with soap and water at the time of the dressing changes. Encourage nutritional supplementation with protein to help the healing process. Left ischial wound culture obtained 12/28/22 which was positive MRSA, Staphylococcus haemolyticus, Corynebacterium striatum, Proteus mirabilis, Streptococcus group F. He was treated with Augmentin and Doxycycline. He was evaluated by a plastic surgeon at [facility] in April 2023. He states he needs his GI issues improved before he has any surgeries. Follow up four weeks. Call or come in sooner if develop any concerns.
== END 2023-10-10 23:59 | disposition home or self-care (01) ==
LOC: WC 10:43
PROVIDERS: PCP Internal Medicine; Referring Provider Internal Medicine; Visit Provider Nurse Practitioner Family
DX: L89.314 Pressure ulcer of right buttock, stage 4 (principal); L89.324 Pressure ulcer of left buttock, stage 4; G82.20 Paraplegia, unspecified; Z89.611 Acquired absence of right leg above knee; L98.492 Non-pressure chronic ulcer of skin of other sites with fat layer exposed; M86.68 Other chronic osteomyelitis, other site; Z87.891 Personal history of nicotine dependence; Z86.14 Personal history of Methicillin resistant Staphylococcus aureus infection
CPT/HCPCS: 11043; 11046

== ENCOUNTER 2023-11-01 11:01 | Outpatient (RCR) | payer MEDICARE, MEDICAID, SELFPAY ==
[2023-10-11 00:20] VITALS: BP 123/73; PULSE 82; RESP 16; TEMP 36; BMI 19.8
[2023-11-01 11:18] VITALS: BP 107/67; PULSE 105; RESP 18; TEMP 37.1; BMI 19.8
--- NOTE | 2023-11-01 13:22 | PCM.WC.PN ---
History of Present Illness Date of Service: 11/01/23 Chief Complaint: Bilateral ischial pressure sores, Stage IV. History of Wound: Surgery 04/08/20 - 1. Excision bleeding right ischial/perineal pressure sore, Stage IV. 2. Control of prostatic bleeding with electrocautery and Surgicel hemostat. Wound Care - Left ischial ulcer is Dakin's 0.25% moistened gauze topped with ABD daily. Right ischial ulcer is Promogran topped with ABD daily. Wash both ulcers with soap and water at the time of the dressing change. Left ischial ulcer culture 12/28/22 positive for MRSA, Staphylococcus haemolyticus, Corynebacterium striatum, Proteus mirabilus, and Streptococcus group F. He was treated with Augmentin and Doxycycline. Wound culture from 03/02/22 positive for Pseudomonas aeroginosa, Morganella morganii sp sibonii, and Corynebacterium. Due to his allergies and the the sensitivity of the cultures, patient was referred to ID, who placed him on Augmentin and Cipro, which he currently is on and is tolerating. Wound culture from 01/20/21 positive for Proteus mirabilis, Cornybacterium minutissium and Bacteroides fragilis. He was referred to ID for antibiotic management, which he was placed on Cefdinir, Doxycycline and Flagyl for 10 days. Patient has long standing bilateral ischial pressure sores, Stage IV, with the left side extending to the femoral head and the right side extending to the perineal area and the prostate. Surgery would entail quite extensive excision with amputations at a tertiary center. Patient does not want to pursue any heroic surgeries at this time since it is not a guarantee his pressure issues won't recur. With aggressive amputations, his already tenuous balance would be even more disrupted. At the present time, we are providing conservative care on a monthly basis. He stated his right leg gets in the way when transferring. He underwent a right AKA on 06/12/20 in [place]. Wound culture was done on 04/22/20. It showed Morganella morganii, Pseudomonas aeroginosa, Streptococcus group F, and Bacteroides fragilis. He has a lot of antibiotic allergies. His only real option is IV antibiotics. Dr. Chester also saw him at the Wound Center and felt the wounds were colonized and held off on antibiotics at this time. If his clinical situation were to change, then would re-evaluate him for IV antibiotics at that time. Wound culture from 11/01/20 was positive for MRSA, E. coli, Proteus Mirabilis. He was treated with Augmentin and doxycycline. He had a cystectomy and a partial prostatectomy by Dr. Lala at [facility] on 08/04/22. He states he is feeling better than he was before having his bladder removed. Today he denies any fever, chills or nausea and vomiting. Progress of Wound: Left ischial ulcer cluster is stable. It continues to have crevices with significant depth/tunneling. There are patches of dryness and thickened scar tissue around the edges of the ulcer. Steffi wound is stable. Right ischial is stable with thickened scarring surrounding the ulcer. Base of ulcer is pink. Objective Data Objective Data Vital Signs: Vital Signs Temp Pulse Resp BP 98.8 F 105 H 18 107/67 11/01/23 11:18 11/01/23 11:18 11/01/23 11:18 11/01/23 11:18 Body Mass Index (BMI) 19.8 Charges/Coding Procedures Integumentary 111xxx-113xx: 33381 Manisha musc/fascia 20 sq cm/< Add On Codes: 25740 Manisha musc/fascia add-on Debridement Note Debridement Note Wound debrided: ischial ulcer cluster Laterality: Left Wound Grade/Stage: Stage IV Type of Debridement: Excisional debridement Anesthesia Used: 4% Lidocaine Solution Depth: Down to and including healthy tissue, in the subcutaneous layer and to muscle Percentage of wound debrided: 100 Instrument Used: 5mm curette Tissue Removed: Non viable tissue and slough into the muscle Severity: Fat Layer Exposed Amount of bleeding with debridement: Mild Bleeding Controlled with: Pressure and Compression and gauze Patient tolerated procedure: Patient tolerated procedure well Post-Debridement Measurements and Additional Note: Post-Debridement Measurements/Treatment NIKA - Nurse 1 - General Ulcer Assessment Start: 11/01/23 11:18 Freq: Status: Active Protocol: WILLIAMS Activity Type Activity Date Activity User E-sign Co-sign Detail Recorded Client Recorded Date Recorded By Document 11/01/23 11:18 DL Desktop 11/01/23 11:25 DL 11/01/23 11:18 WC - Today's Visit Information Type of service Follow-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 ) Arrival Mode Wheelchair Transfer Assistance Manual Transfer Assist (Other) x1 Patient Identification Verified (Name & Yes ) Patient Requires Transmission-Based No Precautions Height and Weight Body Mass Index (BMI) 19.8 BMI Classification Normal Vital Signs Temperature (97.8 F-99.1 F) 98.8 F Temperature Source Oral Pulse Rate (60-100) 105 H Pulse Location Monitor Respiratory Rate (12-18) 18 Respiratory rate source Observation Blood Pressure (90/60-120/80) 107/67 Blood Pressure Mean (mm Hg) 80 History Since Last Visit- (Skip if this is Patient's initial visit) Have you changed medications since your No last visit? Any new allergies or adverse reactions No Had a fall/change in ADL's that may No increase risk of falls Signs or symptoms of abuse and/or No neglect since last visit Have you been in the hospital since your No last visit? Has dressing in place as prescribed Yes Has compression in place as prescribed N/A Has offloadiing in place as prescribed N/A Experienced any changes in pain level or No management Pain Scale: 0-10 Numeric Is Patient Pain Free? Yes WC - Nurse 1 - General Ulcer Measurement Start: 11/01/23 11:18 Freq: Status: Active Protocol: Activity Type Activity Date Activity User E-sign Co-sign Detail Recorded Client Recorded Date Recorded By Document 11/01/23 11:18 DL Desktop 11/01/23 11:25 DL 11/01/23 11:18 Wound Center Nurse 1 #8 L Ischium cluster -Current Size (cm) - Length 6 -Current Size (cm) - Width 6 -Current Size (cm) - Depth 0.1 -Total Square Cm 36 -Exudate Amt Small -Exudate Type Serosanguineous -Wound Margin Distinct, Outline Attached -Granulation Amt Large (67-100%) -Granulation Quality Red -Necrosis Amt Small (1-33%) -Necrotic Tissue Type Adherent Slough -Texture (Steffi-wound Skin Appearance) Assessed -Moisture (Steffi-wound Skin Appearance) Assessed -Color (Steffi-wound Skin Appearance) Assessed -Temperature (Steffi-wound Skin No Abnormality Appearance) (Pt Warm) -Ulcer Cleansing Soap and Water -Wound Comment(s) no lidocaine needed #7 R Ischium cluster -Current Size (cm) - Length 2.2 -Current Size (cm) - Width 0.7 -Current Size (cm) - Depth 0.1 -Total Square Cm 1.54 -Exudate Amt Small -Exudate Type Serosanguineous -Wound Margin Distinct, Outline Attached -Granulation Amt Large (67-100%) -Granulation Quality Red -Necrosis Amt Small (1-33%) -Necrotic Tissue Type Adherent Slough -Texture (Steffi-wound Skin Appearance) Assessed -Moisture (Steffi-wound Skin Appearance) Assessed -Color (Steffi-wound Skin Appearance) Assessed -Temperature (Steffi-wound Skin No Abnormality Appearance) (Pt Warm) -Ulcer Cleansing Soap and Water -Wound Comment(s) no lidocaine needed WC - Nurse 2 - General Ulcer CM Notes Start: 11/01/23 11:18 Freq: Status: Active Protocol: Activity Type Activity Date Activity User E-sign Co-sign Detail Recorded Client Recorded Date Recorded By Document 11/01/23 12:13 Laptop 11/01/23 12:19 11/01/23 12:13 Wound Center Nurse 2 #8 L Ischium cluster -Time 12:15 -Correct Patient Yes -Correct Side, Site, Position Yes -Correct Procedure Yes -Procedure Performed Yes -Type of Procedure Debridement -Clinical Debridement Muscle / Fascia -Tissue Removed Muscle,Fascia -Post Debridement (cm) - Length 6.5 -Post Debridement (cm) - Width 4.2 -Post Debridement (cm) - Depth 0.9 -Total Square (Post) (cm) 27.30 -Area of Debridement (cm) - Length 6.5 -Area of Debridement (cm) - Width 4.2 -Total Square (Area) (cm) 27.30 -Tunneling No -Undermining/Tunneling No -Circular Undermining No -Wound/Ulcer Outcome Not Healed -Ulcer Cleansing Rinsed/ Irrigated with Saline -Foul Odor after Cleansing No -Bioengineered Tissue No -Bleeding Controlled with Pressure -Treatment Response Procedure Tolerated Well -Offloading No -Pressure Reduction Wheelchair cushion -Debridement - Muscle / Fascia, 1st No 20sq cm #7 R Ischium cluster -Time 12:18 -Correct Patient Yes -Correct Side, Site, Position Yes -Correct Procedure Yes -Procedure Performed Yes -Type of Procedure Debridement -Clinical Debridement Muscle / Fascia -Tissue Removed Muscle,Fascia -Post Debridement (cm) - Length 4.8 -Post Debridement (cm) - Width 2.5 -Post Debridement (cm) - Depth 0.3 -Total Square (Post) (cm) 12.00 -Area of Debridement (cm) - Length 4.8 -Area of Debridement (cm) - Width 2.5 -Total Square (Area) (cm) 12.00 -Tunneling No -Undermining/Tunneling No -Circular Undermining No -Wound/Ulcer Outcome Not Healed -Ulcer Cleansing Rinsed/ Irrigated with Saline -Foul Odor after Cleansing No -Bioengineered Tissue No -Bleeding Controlled with Pressure -Treatment Response Procedure Tolerated Well -Offloading No -Pressure Reduction Wheelchair cushion -Debridement - Muscle / Fascia, 1st Yes 20sq cm -Debridement, Muscle/Fascia, ea addt'l 1 20sq cm or part thereof Pain Scale: 0-10 Numeric Is Patient Pain Free? 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 Yes - Visit Discharge Discharge Condition Stable Ambulatory Status Wheelchair Transportation Private Auto Additional Wound Wound debrided: perianal/ischial ulcer Laterality: Right Wound Grade/Stage: Stage IV Type of Debridement: Excisional debridement Anesthesia Used: 4% Lidocaine Solution Depth: Down to and including healthy tissue, in the subcutaneous layer and to muscle Percentage of wound debrided: 100 Instrument Used: 3mm curette Tissue Removed: Non viable tissue and slough into the muscle. Severity: Fat Layer Exposed Amount of bleeding with debridement: Mild Bleeding Controlled with: Pressure and Compression and gauze Patient tolerated procedure: Patient tolerated procedure well Assessment/Plan Assessment/Plan (1) Pressure sore of left ischium, stage 4: CODE(S): L89.324 - Pressure ulcer of left buttock, stage 4 (2) Right ischial pressure sore, stage 4: CODE(S): L89.314 - Pressure ulcer of right buttock, stage 4 (3) Perineal ulcer: CODE(S): L98.499 - Non-pressure chronic ulcer of skin of other sites with unspecified severity QUALIFIERS: Non-pressure ulcer stage: unspecified non-pressure ulcer stage Qualified Code(s): L98.499 - Non-pressure chronic ulcer of skin of other sites with unspecified severity (4) Chronic osteomyelitis, pelvis: CODE(S): M86.659 - Other chronic osteomyelitis, unspecified thigh (5) Paraplegia at T4 level: CODE(S): G82.20 - Paraplegia, unspecified (6) History of tobacco use: CODE(S): Z87.891 - Personal history of nicotine dependence (7) Severe protein-calorie malnutrition: CODE(S): E43 - Unspecified severe protein-calorie malnutrition PLAN: Plan Patient was evaluated at the wound healing center today. Wound care - Moistened Promogram covered adaptic and topped with gauze/ABD daily to both the left ischial ulcer and the right ischial/steffi anal ulcer. Wash both ulcers with soap and water at the time of the dressing changes. Encourage nutritional supplementation with protein to help the healing process. Left ischial wound culture obtained 12/28/22 which was positive MRSA, Staphylococcus haemolyticus, Corynebacterium striatum, Proteus mirabilis, Streptococcus group F. He was treated with Augmentin and Doxycycline. He was evaluated by a plastic surgeon at [facility] in April 2023. He states he needs his GI issues improved before he has any surgeries. Follow up four weeks. Call or come in sooner if develop any concerns.
== END 2023-11-10 23:59 | disposition home or self-care (01) ==
LOC: WC 11:01
PROVIDERS: PCP Internal Medicine; Referring Provider Internal Medicine; Visit Provider Nurse Practitioner Family
DX: L89.314 Pressure ulcer of right buttock, stage 4 (principal); L89.324 Pressure ulcer of left buttock, stage 4; G82.20 Paraplegia, unspecified; Z89.611 Acquired absence of right leg above knee; M86.68 Other chronic osteomyelitis, other site; Z86.14 Personal history of Methicillin resistant Staphylococcus aureus infection; Z87.891 Personal history of nicotine dependence; Z79.899 Other long term (current) drug therapy
CPT/HCPCS: 11043; 11046

== ENCOUNTER → 2023-11-29 | Outpatient (CLI) | payer MEDICARE, MEDICAID, SELFPAY ==
[2023-11-29 13:42] LABS: Mucous, Urine 0 SEEN /hpf (<or=2+); Squamous Epithelial Cells - UA 0 SEEN /hpf (0-5)
[2023-11-29 15:33] LABS: Color, Urine Yellow (Yellow); Glucose, Dipstick Normal (Normal); Ketone-Dipstick Negative (Negative); Leukocyte Esterase-Dipstick 500 /ul (Negative); Nitrite-Dipstick Negative (Negative); Occult Blood-Urine 50 /ul (Negative); Protein-Dipstick 30 mg/dl (Negative); Specific Gravity, Urine 1.005 (1.002-1.030); Urine Clarity Sl. Cloudy (Clear); Urine Urobilinogen 1 mg/dl (Normal)
[2023-11-29 15:35] LABS: Hemoglobin 12.7 g/dL (13.0-16.5); Mean Corpuscular Hgb 29.3 pg (27.0-32.0); Mean Corpuscular Volume 94.7 fL (80-94); Mean Platelet Vol. 10.5 fl (6.2-12.0); Platelet Count 291 K/mm3 (150-450); RBC Distribution Width CV 14.5 % (11.6-14.6); RBC Distribution Width SD 50.1 fl (35.1-43.9); Red Blood Count 4.33 M/mm3 (4.6-6.2); White Blood Count 18.9 K/mm3 (4.4-11.0)
[2023-11-29 15:41] LABS: Urine Bilirubin Dipstick 1 mg/dL (Negative)
--- OUTSIDE RECORDS SUMMARY | 2023-11-29 15:41 | XMS RPT_ITS | CCD ---
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 does appear to be some proximal femur remaining on the right side. There is soft tissue defects Plan ASSESSMENT AND PLAN: 1. Pressure injury of left hip, stage 4 ([facility]) - ICD9: 707.04, 707.24, ICD10: L89.224 (primary diagnosis) 2. Paraplegia at T4 level ([facility]) - ICD9: 344.9, ICD10: G82.20 3. Left below-knee amputee ([facility]) - ICD9: V49 (more content not included)... [facility] 11-26-2022 Miscellaneous Notes Called patient to follow up on whether he was able to get to the ER yesterday regarding his concern for UTI or pelvic infection. He states that he cannot leave because he cares for his father. When asked if someone could watch him, he says that his girlfriend would go with him (patient), then nobody would be watching his father. When asked about a sibling, he says his sister works all day and cannot watch him. Reinforced that Dr. Winslow wanted him to come in for an assessment of his symptoms and treat, if needed. Pernell Heath states understanding. Martina Johnson RN documented in this encounter [facility] 11-25-2022 Miscellaneous Notes TRANSITION CARE MANAGEMENT (TCM) FOLLOW-UP NOTE Provider Action/FYI Returned patient's call regarding concern for UTI Patient identified by name and date of : YES Spoke to patient Summary: Pernell [place] s/p Exploratory laparotomy, lysis of adhesions, and cystectomy with Dr. Winslow on 08/04/2022 and Ileal conduit urinary diversion with Dr. Winslow on 04/12/2012. Pernell L Ivana last seen by Dr. Winslow on 09/17/2022 for surgical follow up. Per her note, s/p completion cystectomy for pyocystis, now with autonomic symptoms suggestive of intraabd problem. CT with contrast to investigate for abscess. Ordered Cipro based on last culture- urine is cloudy in bag today. Will call after I review the CT. CT ab/pel 09/30/2022: Small fluid collection in the cystoprostatectomy bed, with soft tissue stranding of the adjacent perineum, suspicious for an inflammatory/infectious process. Suspect mild proctitis. Deformity of bilateral femoral heads and acetabulum, LEFT worse than RIGHT, with stable soft tissue stranding and foci of gas adjacent to the proximal LEFT femur. The possibility of chronic osteomyelitis cannot be excluded. Cipro started on 09/17 for 14 day course. Pernell Murray [place] now calling to report that he has been having fever, chills and cloudy urine starting a couple days now. Says he feels like he felt before he was taking Cipro on 09/17. Wanted to know if Dr. Winslow would provide Cipro again. Informed Pernell Heath that we should probably get a urine culture, ideally from the stoma, but could be from a clean urostomy pouch. Strongly recommended that patient go to [facility] to be assessed and treated. He states he cannot go there because they just take a specimen from the bag, and tell him there is nothing they can do for him. Suggested he come to [place] ED for assessment, and he said he cannot do that either. Again, strongly urged patient to get assessed locally, but that I would inform Dr. Winslow of the concerns and get back to him. Pernell Heath states understanding of instructions. Concerns: Undetermined urinary tract infection Milk Driver plan for next outreach: Will follow up after discussing with Dr. Winslow. Signature Martina Johnson RN November 25, 2022 documented in this encounter [facility] 10-13-2022 Miscellaneous Notes Patient with some autonomic sx suggestive of pelvic/infection. Also more leg spasticity. Ordered CT which showed a axv-hcwmn-ok-drain fluid collection where the bladder neck/prostate was. I don't think that is the source. Also poss osteo femoral head L. He says his wound is improved without drainage from bladder. Started cipro locally for ?UTI. Feels better. Will cont obs and await better GI management/input. Silvana Winslow MD documented in this encounter [facility] 09-30-2022 Note HNO ID: [id number] Author: RT Jamia(R) Service: ? Author Type: Turning Machine Set Up Operator Type: Progress Notes Filed: 09/30/2022 2:58 PM Note Text: Radiology Service Progress Note DATE OF SERVICE: September 30, 2022 TIME: 2:58 PM PATIENT IDENTITY VERIFICATION COMPLETED USING TWO (2) STANDARD IDENTIFIERS: Name and Date of confirmed by patient verbally. FALL SCREENING: Has the patient had 2 falls in the last year or 1 fall with injury or currently using an Ambulatory Assistive Device (Walker, Cane, Wheelchair, Crutches, etc.)? No PATIENT GENDER DATA: Male PATIENT RELEVANT IMPLANT DATA REVIEWED: Yes ALLERGIES: Reviewed and unchanged CONTRAST ALLERGY: NO. EXAM: CT -CONTRAST INDUCED NEPHROPATHY RISK FACTORS: Not applicable CREATININE: Creatinine Date Value Ref Range Status 08/06/2022 0.56 (L) 0.73 - 1.22 mg/dL Final 08/05/2022 0.57 (L) 0.73 - 1.22 mg/dL Final 08/04/2022 0.55 (L) 0.73 - 1.22 mg/dL Final Estimated Glomerular Filtration Rate Date Value Ref Range Status 08/06/2022 116 >=60 mL/min/1.73m? Final Comment: Estimated Glomerular Filtration Rate (eGFR) is calculated using the 2020 CKD-EPI creatinine equation. This equation utilizes serum creatinine, sex, and age as parameters. The creatinine assay has traceable calibration to isotope dilution-mass spectrometry. Refer to KDIGO guidelines for clinical interpretation. In patients with unstable renal function, e.g. those with acute kidney injury, the eGFR may not accurately reflect actual GFR. eGFR- Date Value Ref Range Status 05/18/2012 >60 Final P.O.C.T. RESULTS: POC done: Yes, See Lab Tab September 30, 2022 TREATMENT: N/A PERIPHERAL IV DATA: Ambulatory: A peripheral IV was started in the Left antecubital site with a Angio cath: 22 gauge. RADIOLOGY DEPARTMENT: CT; Exam(s) Completed: Abdomen/Pelvis SIGNATURE: RT Paulie(R) PATIENT NAME: Pernell Heath DATE: September 30, 2022 TIME: 2:58 PM [facility] 09-30-2022 History of Present illness Narrative Radiology Service Progress Note DATE OF SERVICE: September 30, 2022 TIME: 2:58 PM PATIENT IDENTITY VERIFICATION COMPLETED USING TWO (2) STANDARD IDENTIFIERS: Name and Date of confirmed by patient verbally. FALL SCREENING: Has the patient had 2 falls in the last year or 1 fall with injury or currently using an Ambulatory Assistive Device (Walker, Cane, Wheelchair, Crutches, etc.)? No PATIENT GENDER DATA: Male PATIENT RELEVANT IMPLANT DATA REVIEWED: Yes ALLERGIES: Reviewed and unchanged CONTRAST ALLERGY: NO. EXAM: CT -CONTRAST INDUCED NEPHROPATHY RISK FACTORS: Not applicable CREATININE: Creatinine Date Value Ref Range Status 08/06/2022 0.56 (L) 0.73 - 1.22 mg/dL Final 08/05/2022 0.57 (L) 0.73 - 1.22 mg/dL Final 08/04/2022 0.55 (L) 0.73 - 1.22 mg/dL Final Estimated Glomerular Filtration Rate Date Value Ref Range Status 08/06/2022 116 >=60 mL/min/1.73m Final Comment: Estimated Glomerular Filtration Rate (eGFR) is calculated using the 2020 CKD-EPI creatinine equation. This equation utilizes serum creatinine, sex, and age as parameters. The creatinine assay has traceable calibration to isotope dilution-mass spectrometry. Refer to KDIGO guidelines for clinical interpretation. In patients with unstable renal function, e.g. those with acute kidney injury, the eGFR may not accurately reflect actual GFR. eGFR- Date Value Ref Range Status 05/18/2012 >60 Final P.O.C.T. RESULTS: POC done: Yes, See Lab Tab September 30, 2022 TREATMENT: N/A PERIPHERAL IV DATA: Ambulatory: A peripheral IV was started in the Left antecubital site with a Angio cath: 22 gauge. RADIOLOGY DEPARTMENT: CT; Exam(s) Completed: Abdomen/Pelvis SIGNATURE: RT Paulie(R) PATIENT NAME: Pernell Heath DATE: September 30, 2022 TIME: 2:58 PM documented in this encounter [facility] 09-22-2022 Miscellaneous Notes Per appointment desk, the contrast injection is on 09-30-22 at 1:20p.m. and the scan is on 09-30-22 at 2:20p.m. at [facility]. Lorena Miranda September 22, 2022 10:[address] Winslow today, 09-17-[address] of the abdomen/pelvis was ordered. Patient requested to schedule his scan at [facility] as he needed to check his calendar/schedule because he will need to arrange transportation. Lorena Miranda September 17, 2022 1:06 PM documented in this encounter [facility] 09-17-2022 History of Present illness Narrative HPI: s/p completion cystectomy on 08/04/22. Here for follow up. States that the drainage has dried up but he is diaphoretic since about 2 weeks after surgery and feels like he has infection . Gave a sample at [place]- came from bag and was multiflora. PAST MEDICAL HISTORY Diagnosis Date Heart murmur MRSA infection Other kyphoscoliosis and scoliosis Paraplegia (HCC) Pressure sore Smoking PAST SURGICAL HISTORY Procedure Laterality Date PAST SURGICAL HISTORY OF Multiple skin grafts, muscle flaps PAST SURGICAL HISTORY OF 2010 partial cystectomy, ileal conduit PAST SURGICAL HISTORY OF b/l LE amputation SKIN GRAFT PROCEDURE 05/11/2003 graft left ischial Social History Tobacco Use Smoking status: Former Packs/day: 0.50 Years: 25.00 Pack years: 12.50 Types: Cigarettes Quit date: 07/20/2015 Years since quittin.1 Smokeless tobacco: Former Types: Chew Quit date: 2016 Vaping Use Vaping Use: Never used Substance Use Topics Alcohol use: No Alcohol/week: 10.0 standard drinks Comment: 12 pk /month Drug use: Yes Types: Marijuana Comment: medical marijuana vapes daily Current Outpatient Medications on File Prior to Visit Medication Sig acetaminophen (TYLENOL) 325 mg tablet Take 2 tablets by mouth every 4 hours as needed for pain. amoxicillin-clavulanic acid (AUGMENTIN) 875-125 mg per tablet Take 1 tablet by mouth twice daily. MEDICATION, NON-DATABASE Medical Marijuana Current Facility-Administered Medications on File Prior to Visit Medication perflutren lipid microspheres 1.3 mL in NaCl (PF) 0.9% 10 mL injection (DEFINITY) sodium chloride 0.9 % (flush) 10 mL (BD POSIFLUSH) ROS: Constitutional: feels ill Gastrointestinal: daily dig stim PHYSICAL EXAM: There were no vitals taken for this visit. GENERAL: NAD in chair ABDOMEN: sweaty and clammy. Abd min tender GENITOURINARY: MALE EXAM: Not indicated DATA/OR LABS TO BE REVIEWED: (Simple=1 data point; Complex= 2 or more) No results found for: PSA Creatinine (mg/dL) Date Value 08/06/2022 0.56 08/05/2022 0.57 08/04/2022 0.55 07/20/2022 0.53 05/18/2012 0.54 04/19/2012 0.58 04/18/2012 0.50 04/17/2012 0.47 04/16/2012 0.45 No results found for: TESTOST A/P: s/p completion cystectomy for pyocystis, now with autonomic symptoms suggestive of intraabd problem. CT with contrast to investigate for abscess. Ordered Cipro based on last culture- urine is cloudy in bag today. Will call after I review the CT. 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 Underwent ileal conduit diversion in 2011 but unable to do completion cystectomy given patient's anatomy and limited access to pelvis (surgery done in lat decub). Remained with recurrent UTIs and persistent fistulous tract, sacral decubs. Now s/p open completion cystectomy with partial prostatectomy on 08/04 INTERVAL/SUBJECTIVE Pain improved Nausea resolved Passing flatus and having BMs PREET removed this morning Plan: Neuro: BACTERIOLOGY TEACHER for pain control - strict Is and Os, PREET drain removed, consult to ostomy nursing, wound care consult placed for sacral decubitus ulcer, follow up intraop cultures, adjust abx as indicated Resp- aggressive BPH and IS FEN -VF 100 cc/hr, holding entereg for now given post-operative diarrhea, continue GI soft, okay to continue colace, protonix and pepcid. PRN nausea meds, imodium today before homegoing Activity - as tolerated given paraplegia, PT/OT consult - appreciate recs, signed off DVT prophylaxis - Lovenox SQ Antibiotics - Perioperative antibiotics - zosyn, follow intraop culture Discharge planning - anticipate dc today, patient's GF to transport Discussed with Dr. Goldy Hester MD Urology PGY-3 Pager: [phone] After 5pm and on weekends please page [phone] Active Problems Neurogenic bladder (POA): s/p completion cystectomy + partial prostatectomy Sacral Decubitus Ulcer (POA): consult to wound care for management Former smoker: counseling on smoking cessation maintenance GERD (POA): protonix ordered Acute on chronic anemia: secondary to blood loss and dilutional component, transfuse Hb < 7 Objective Vital Signs BP 164/65 Pulse 62 Temp 36.6 ?C (97.9 ?F) (Oral) Resp 18 SpO2 98% Input and Output Intake/Output Summary (Last 24 hours) at 08/08/2022 0854 Last data filed at 08/08/2022 0649 Gross per 24 hour Intake 1752 ml Output 2015 ml Net -263 ml Physical Exam GEN: Alert, NAD EYES: Anicteric LUNGS: No increased WOB on RA HEART: Reg rate ABDOMEN: Nontender, nondistend, PREET SS : stoma pink and viable draining CYU, sacral wound covered with dressing without drainage or saturation Imaging No new imaging available [facility] 08-08-2022 Note HNO ID: [id number] Author: Silvana Winslow MD Service: Urology Author Type: Physician Type: Progress Notes Filed: 08/08/2022 8:00 AM Note Text: (please see resident note for full details) Looks fine, asking to go home. Bowels liquid- req immodium removed drain (SS) There is a hematoma of the ab wall, poss source of anemia, but Hgb stable - OK for discharge - needs immodium prior to dc Silvana Winslow MD [facility] 08-07-2022 Note HNO ID: [id number] Author: Wilbert Hester MD Service: Urology Author Type: Resident Type: Progress Notes Filed: 08/07/2022 7:13 AM Note Text: [facility] UROLOGY PROGRESS NOTE Name: Pernell Heath Date: August 07, 2022 After Hours [facility] [place] [facility] Pager: [phone] ASSESSMENT AND PLAN 57 y/o paraplegic male w T4 spinal cord injury c/b neurogenic bladder managed with indwelling alcaraz 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 Underwent ileal conduit diversion in 2011 but unable to do completion cystectomy given patient's anatomy and limited access to pelvis (surgery done in lat decub). Remained with recurrent UTIs and persistent fistulous tract, sacral decubs. Now s/p open completion cystectomy with partial prostatectomy on 08/04 INTERVAL/SUBJECTIVE Pain improving Nausea essentially resolved after switching fentanyl to dilaudid BACTERIOLOGY TEACHER Passing flatus and having BMs Hb responded appropriately to 2u blood 10.7 from 9.6 from 6.6, vitals stable, not tachy Cr stable at 0.5 UOP 1.4L PREET output trending down 205 cc Plan: Neuro: BACTERIOLOGY TEACHER for pain control - strict Is and Os, maintain PREET drain to suction, consult to ostomy nursing, wound care consult placed for sacral decubitus ulcer, follow up intraop cultures, adjust abx as indicated Resp- aggressive BPH and IS FEN -VF 100 cc/hr, holding entereg for now given post-operative diarrhea, advance to GI soft, okay to continue colace, protonix and pepcid. PRN nausea meds Activity - as tolerated given paraplegia, PT/OT consult - appreciate recs, signed off DVT prophylaxis - Lovenox SQ Antibiotics - Perioperative antibiotics - zosyn, follow intraop culture Discharge planning - anticipate dc tomorrow, will need case management to help set up transport. No PT/OT needs Discussed with Dr. Goldy Hester MD Urology PGY-3 Pager: [phone] After 5pm and on weekends please page [phone] Active Problems Neurogenic bladder (POA): s/p completion cystectomy + partial prostatectomy Sacral Decubitus Ulcer (POA): consult to wound care for management Former smoker: counseling on smoking cessation maintenance GERD (POA): protonix ordered Acute on chronic anemia: secondary to blood loss and dilutional component, transfuse Hb < 7 Objective Vital Signs BP 148/65 Pulse 75 Temp 36.3 ?C (97.3 ?F) Resp 18 SpO2 100% Input and Output Intake/Output Summary (Last 24 hours) at 08/07/2022 0701 Last data filed at 08/07/2022 0615 Gross per 24 hour Intake 1529 ml Output 1630 ml Net -101 ml Physical Exam GEN: Alert, NAD EYES: Anicteric LUNGS: No increased WOB on RA HEART: Reg rate ABDOMEN: Nontender, nondistend, PREET SS : stoma pink and viable draining CYU, sacral wound covered with dressing without drainage or saturation Imaging No new imaging available [facility] 08-06-2022 Note HNO ID: [id number] Author: Silvana Winslow MD Service: Urology Author Type: Physician Type: Progress Notes Filed: 08/06/2022 7:53 AM Note Text: [facility] UROLOGY PROGRESS NOTE Name: Pernell Heath Date: August 06, 2022 After Hours [facility] Service Pager: [phone] ASSESSMENT AND PLAN 57 y/o paraplegic male w T4 spinal cord injury c/b neurogenic bladder managed with indwelling alcaraz 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 Underwent ileal conduit diversion in 2011 but unable to do completion cystectomy given patient's anatomy and limited access to pelvis (surgery done in lat decub). Remained with recurrent UTIs and persistent fistulous tract, sacral decubs. Now s/p open completion cystectomy with partial prostatectomy on 08/04 INTERVAL/SUBJECTIVE Pain tolerable overnight, remains with nausea especially after receiving narcotics; continues to drink adqeuate fluids and have bowel movements Hb 6.8 from 7.7 overnight; 6.6 on recheck, 2U of pRBCs ordered; SBP 110s-120s and no tachycardia noted Cr stable at 0.6 UOP 1.4L PREET 280 cc Plan: Neuro: BACTERIOLOGY TEACHER for pain control - strict Is and Os, maintain PREET drain to suction, consult to ostomy nursing, wound care consult placed for sacral decubitus ulcer, follow up intraop cultures, adjust abx as indicated Resp- aggressive BPH and IS FEN -VF 100 cc/hr, holding entereg for now given post-operative diarrhea, CLD, okay to continue colace, protonix and pepcid; will add reglan for nausea as a second line agent Activity - as tolerated given paraplegia, PT/OT consult, patient is at baseline function, PT signed off as he has no additional needs; continue dolphin bed DVT prophylaxis - Lovenox SQ Antibiotics - Perioperative antibiotics - zosyn, follow intraop culture Discharge planning - pending clinical course Discussed with Dr. Goldy Yoo MD PGY 2 Resident [facility] Pager [phone] Active Problems Neurogenic bladder (POA): s/p completion cystectomy + partial prostatectomy Sacral Decubitus Ulcer (POA): consult to wound care for management Former smoker: counseling on smoking cessation maintenance GERD (POA): protonix ordered Acute on chronic anemia: secondary to blood loss and dilutional component, transfuse Hb < 7 Objective Vital Signs BP 122/57 Pulse 71 Temp 36.4 ?C (97.5 ?F) (Oral) Resp 18 SpO2 99% Input and Output Intake/Output Summary (Last 24 hours) at 08/06/2022 0722 Last data filed at 08/06/2022 0300 Gross per 24 hour Intake 3405 ml Output 1712 ml Net 1693 ml Physical Exam GEN: Alert, NAD EYES: Anicteric LUNGS: No increased WOB on RA HEART: Reg rate ABDOMEN: Nontender, nondistend, PREET SS : stoma pink and viable draining CYU, sacral wound covered with dressing without drainage or saturation Imaging No new imaging available Attending Note I evaluated the patient and personally participated in the gamez components. Patient seen w Dr. Yoo. Hgb low and nausea. Will transfuse. Drain stripped, is not bloody. I suspect anemia is acute blood loss from OR. Nausea may be from fentanyl IV per nurse Is and Os not recorded as urine output due to problem with Epic- reported via SERS (*again) Wound care OT consult Cont IV fluids and clears only until nausea improves. Signature: Silvana Winslow MD Date: 08/06/2022 Time: 7:51 AM [facility] 08-05-2022 Note HNO ID: [id number] Author: GERA Jenkins Service: Care Management Author Type: Job Press Feeder Type: Care Mgt Initial Assessment Filed: 08/05/2022 3:50 PM Note Text: CARE MANAGEMENT: ASSESSMENT AND DISCHARGE PLAN SERVICE DATE: August 05, 2022 SERVICE TIME: 3:47 PM PRIMARY CARE PHYSICIAN: [place] MD Primary Contact: Extended Emergency Contact Information Primary Emergency Contact: Maranda Perry Relation: Significant other ADMISSION STATUS: Inpatient Insurance Provider: [employer] NEEDS PRIOR TO DISCHARGE Needs Prior to Discharge: None POTENTIAL TRANSITION PLANS Home with no skilled needs Patient's perception of need for this admission: surgery ADVANCE DIRECTIVES Current Advance Directive: None Nursing Informatics Clinical Analyst Attempted to Assist with AD Completion: Yes Action: Education Provided MS/BEHAVIOR Baseline Mental Status READMISSION Last Discharge Date: 04/21/12 No medical discharge barriers identified at this time. No social discharge barriers identified at this time. No behavioral/cognitive discharge barriers identified at this time. No functional discharge barriers identified at this time. FREEDOM OF CHOICE EXPLAINED: [place] of Choice Given: No Reason Not Given: No placements necessary Are you interested in bedside delivery of your medications? Yes ASSESSMENT AND PLAN: Chart reviewed and initial assessment completed. Spoke with pt. Pt lives in [place], [place] with his girlfriend and his father. Pt states that he is able to manage his own care, his girlfriend assists with all wound care and any care needs he may have. He declined the need for home care. He said his girlfriend will do his dressing changes as she has done them before and manages them well. Pt's girlfriend will be transporting him at al. No further needs identified for CM intervention. Please contact CM if needs arise. SIGNATURE: GERA Jenkins PATIENT NAME: Pernell Heath DATE: August 05, 2022 TIME: 3:47 PM CONTACT #: [phone] [facility] 08-05-2022 Note HNO ID: [id number] Author: Quyen Yoo MD Service: Urology Author Type: Resident Type: Progress Notes Filed: 08/05/2022 9:08 AM Note Text: [facility] UROLOGY PROGRESS NOTE Name: Pernell Heath Date: August 05, 2022 After Hours [facility] [place] [facility] Service Pager: [phone] ASSESSMENT AND PLAN 57 y/o paraplegic male w T4 spinal cord injury c/b neurogenic bladder managed with indwelling alcaraz 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 Underwent ileal conduit diversion in 2011 but unable to do completion cystectomy given patient's anatomy and limited access to pelvis (surgery done in lat decub). Remained with recurrent UTIs and persistent fistulous tract, sacral decubs. Now s/p open completion cystectomy with partial prostatectomy on 08/04 INTERVAL/SUBJECTIVE Pain tolerable overnight With mild nausea this morning, zofran ordered post-op States he is thirsty, requesting clears Remains with stool incontinence, entereg stopped PREET with 410 cc out since OR Hb 7.7 from 8.6, no active signs of bleeding Plan: Neuro: BACTERIOLOGY TEACHER for pain control - strict Is and Os, maintain PREET drain to suction, consult to ostomy nursing, wound care consult placed for sacral decubitus ulcer, follow up intraop cultures, adjust abx as indicated Resp- aggressive BPH and IS FEN -VF 100 cc/hr, holding entereg for now given post-operative diarrhea, CLD, okay to continue colace Activity - as tolerated given paraplegia, PT/OT consult, consider possible consult to PMR pending recs from above; up to chair today DVT prophylaxis - Lovenox SQ Antibiotics - Perioperative antibiotics - zosyn, follow intraop culture Discharge planning - pending clinical course Active Problems Neurogenic bladder (POA): s/p completion cystectomy + partial prostatectomy Sacral Decubitus Ulcer (POA): consult to wound care for management Former smoker: counseling on smoking cessation maintenance GERD (POA): protonix ordered Acute on chronic anemia: secondary to blood loss and dilutional component, transfuse Hb < 7 Objective Vital Signs BP (!) 123/48 Pulse 83 Temp 36.3 ?C (97.3 ?F) (Axillary) Resp 16 SpO2 100% Input and Output Intake/Output Summary (Last 24 hours) at 08/05/2022 0642 Last data filed at 08/05/2022 0519 Gross per 24 hour Intake 5700 ml Output 2510 ml Net 3190 ml Physical Exam GEN: Alert, NAD EYES: Anicteric LUNGS: No increased WOB on RA HEART: Reg rate ABDOMEN: Nontender, nondistend, PREET SS : stoma pink and viable draining CYU, sacral wound without drainage, appears clean with healthy granulation tissue Imaging No new imaging available Attending Note I evaluated the patient and personally participated in the gamez components. I agree with the resident's findings and plan as documented and have discussed the case and management of the patient's care with the resident. Was not given a BACTERIOLOGY TEACHER, reports pain all night poorly controlled. Clears now, adat PT OT today, likely PMR consult following pending their recommendations so we can arrange maximal follow up- need to alert CM Patient has a known chronic wound, needs WC consultation and [facility] Up to chair today Lovenox for DVT prophylaxis Signature: Silvana Winslow MD Date: 08/05/2022 Time: 8:28 AM [facility] 08-04-2022 Note HNO ID: [id number] Author: Quyen Yoo MD Service: Urology Author Type: Resident Type: Progress Notes Filed: 08/04/2022 11:01 PM Note Text: [facility] UROLOGY PROGRESS NOTE Name: Pernell Heath Date: August 04, 2022 After Hours [facility]rology Service Pager: [phone] ASSESSMENT AND PLAN 57 y/o paraplegic male w T4 spinal cord injury c/b neurogenic bladder managed with indwelling alcaraz 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 Underwent ileal conduit diversion in 2011 but unable to do completion cystectomy given patient's anatomy and limited access to pelvis (surgery done in lat decub). Remained with recurrent UTIs and persistent fistulous tract, sacral decubs. Now s/p open completion cystectomy with partial prostatectomy on 08/04 INTERVAL/SUBJECTIVE Patient found sitting in feces on post-op check, sacral decubitus ulcer covered with abdominal pad, appeared clean without evidence of drainage Hb 8.6 from 12.6 on 07/20; HDS, UOP 200 cc out since OR Stool incontinence x 2 Cr wnl at 0.6 Patient otherwise comfortable, no concerns of pain at this time Plan: - strict Is and Os, maintain PREET drain to suction, consult to ostomy nursing, wound care consult placed for sacral decubitus ulcer Resp- aggressive BPH and IS FEN - NPO; will consider slow advancement of diet to full liquids tomorrow, IVF 100 cc/hr, holding bowel regimen for now given post-operative diarrhea Activity - As able given paraplegia DVT prophylaxis - Lovenox SQ Antibiotics - Perioperative antibiotics - zosyn Discharge planning - pending clinical course Active Problems Neurogenic bladder (POA): s/p completion cystectomy + partial prostatectomy Sacral Decubitus Ulcer (POA): consult to wound care for management Former smoker: counseling on smoking cessation maintenance GERD (POA): protonix ordered Acute on chronic anemia: secondary to blood loss and dilutional component, transfuse Hb < 7 Objective Vital Signs BP 156/67 Pulse 73 Temp 36.3 ?C (97.3 ?F) (Temporal) Resp 19 SpO2 99% Input and Output Intake/Output Summary (Last 24 hours) at 08/04/2022 1547 Last data filed at 08/04/2022 1510 Gross per 24 hour Intake 5400 ml Output 1425 ml Net 3975 ml Physical Exam GEN: Alert, NAD EYES: Anicteric LUNGS: No increased WOB on RA HEART: Reg rate ABDOMEN: Nontender, nondistend, PREET SS : stoma pink and viable draining CYU, sacral wound without drainage, appears clean with healthy granulation tissue Imaging No new imaging available [facility] 08-04-2022 Note HNO ID: [id number] Author: Desi Coep APRN.REAL ESTATE ADMINISTRATIVE ASSISTANT Service: ? Author Type: Nurse Shrimp Picker Type: Anesthesia Procedure Notes Filed: 08/04/2022 11:54 AM Note Text: ANESTHESIOLOGY PROCEDURE NOTE A-Line General Information Procedure Start Time/Medication Administration: 08/04/2022 11:28 AM Patient location during procedure: OR Timeout Performed Pre-procedure: timeout performed Indications: continuous blood pressure monitoring and blood sampling needed Staffing Anesthesiologist: Martine Oliva MD Performed by: anesthesiologist Preparation Sterility Preparation: hand hygiene performed prior to procedure, sterile gloves, drapes, and procedure tray, surgical cap used, mask used, sterile drape used during line insertion, skin prep agent completely dried prior to procedure Site Prep: Chloraprep Procedure Details Catheter Type: arterial line Catheter Size: 20 G Catheter Length: 5.25 in Micropuncture Kit Used: No Guidewire Used: Yes Guidewire Removed Intact: Yes Laterality: right Site: radial artery Ultrasound Guided: No Line Secured: occlusive biodressing Events Events: patient tolerated procedure well with no complications SIGNATURE: Desi Cope APRN.CRNA PATIENT NAME: Pernell Heath DATE: August 04, 2022 TIME: 11:54 AM CSN: [id number] [facility] 08-04-2022 Note HNO ID: [id number] Author: Desi Cope APRN.CRNA Service: ? Author Type: Nurse Shrimp Picker Type: Anesthesia Procedure Notes Filed: 08/04/2022 11:53 AM Note Text: ANESTHESIOLOGY PROCEDURE NOTE PIV General Information Procedure Start Time/Medication Administration: 08/04/2022 11:30 AM Patient Location: OR Staffing Anesthesiologist: Martine Oliva MD Performed by: anesthesiologist Preparation Sterility Preparation: hand hygiene performed prior to procedure, surgical cap used, mask used, skin prep agent completely dried prior to procedure Site Prep: alcohol Procedure Details Indication: need for IV access Needle Size/Type: 16 gauge angiocath Orientation: Right Location: Forearm Imaging Guidance Used: No SIGNATURE: Desi Cope APRN.CRNA PATIENT NAME: Pernell Heath DATE: August 04, 2022 TIME: 11:53 AM CSN: [id number] [facility] 08-04-2022 Note HNO ID: [id number] Author: Desi Cope APRN.CRNA Service: ? Author Type: Nurse Shrimp Picker Type: Anesthesia Procedure Notes Filed: 08/04/2022 11:54 AM Note Text: ANESTHESIOLOGY PROCEDURE NOTE PIV General Information Procedure Start Time/Medication Administration: 08/04/2022 11:25 AM Patient Location: OR Staffing Anesthesiologist: Martine Oliva MD Performed by: anesthesiologist Preparation Sterility Preparation: hand hygiene performed prior to procedure, surgical cap used, mask used, skin prep agent completely dried prior to procedure Site Prep: alcohol Procedure Details Indication: need for IV access Needle Size/Type: 14 gauge angiocath Orientation: Right Location: Forearm Imaging Guidance Used: No SIGNATURE: Desi Cope APRN.CRNA PATIENT NAME: Pernell Heath DATE: August 04, 2022 TIME: 11:52 AM CSN: [id number] [facility] 08-04-2022 Note HNO ID: [id number] Author: Desi Cope APRN.CRNA Service: ? Author Type: Nurse Shrimp Picker Type: Anesthesia Procedure Notes Filed: 08/04/2022 11:51 AM Note Text: ANESTHESIOLOGY PROCEDURE NOTE Airway General Information Procedure Start Time/Medication Administration: 08/04/2022 11:15 AM Patient location during procedure: OR Timeout Performed Pre-procedure: timeout performed Consent Obtained: Yes Patient identity confirmed: arm band, care contact center team lead and patient Staffing REAL ESTATE ADMINISTRATIVE ASSISTANT: Desi Cope APRN.REAL ESTATE ADMINISTRATIVE ASSISTANT Performed by: REAL ESTATE ADMINISTRATIVE ASSISTANT Indications and Patient Condition Indications for airway management: anesthesia Preoxygenated: yes anesthesia circuit Patient position: sniffing Method: asleep Manual In-Line Stabilization: Yes Difficult Mask: No Final Airway Details Final airway type: endotracheal airway Final Endotracheal Airway: ETT Cuffed: yes Successful intubation technique: video laryngoscopy Devices used: Conley Endotracheal tube insertion site: oral Blade size: #4 ETT size (mm): 7.5 Measured from: teeth Measurement (cm): 20 Placement verified by: chest auscultation and capnometry Cormack-Lehane Classification: grade I - full view of glottis Number of attempts at approach: 1 Airway trauma: atraumatic. Failed airway: no Unrecognized esophageal intubation: no Airway not difficult SIGNATURE: Desi Cope APRN.CRNA PATIENT NAME: Pernell Heath DATE: August 04, 2022 TIME: 11:51 AM CSN: [id number] [facility] 07-31-2022 Miscellaneous Notes Called Pernell Murray [place] to confirm transportation arrangements for August 03. Patient states that his girlfriend will get him to the hospital as close to 6:00 as possible on day of surgery, 08/04. Reinforced need to be on time to keep the OR schedule on time. Patient states understanding. Reinforced diet instructions and need to take neomycin and amoxicillin on Wednesday. Patient states understanding and agreement with instructions. Martina Johnson RN documented in this encounter [facility] 07-30-2022 Miscellaneous Notes Arrangements made for Pernell Heath to call his transportation company to coordinate an arrival time on 08/04 for 6:00 am for surgery. Pernell Heath returned call to say that the earliest time he can get to the clinic on DOS is 9:30. Discussed with Dr. Winslow who recommended he be preadmitted on 08/03 so that his surgery can start on schedule. Arrangements made for Pernell Heath to be pre admitted on 08/03. Informed patient of this new plan so he can arrange for transportation. He states he doesn't want to come up at 10:00 and stay all day until his bed is available. Responded that we cannot wait until the last minute to find a ride that requires 2 days notice. Pernell Heath states that his girlfriend cannot drive him on day of surgery in the dark because of poor eyesight. Suggested that she drop him off around 1:00 pm on Friday 08/03 and then turn around and leave so that she can get home before it gets dark. Pernell Heath states that he will find out if his girlfriend can bring him on Wednesday, 08/03 at 1:00 and then call me back on my work cell number. Martina Johnson RN documented in this encounter [facility] 07-29-2022 Miscellaneous Notes Urology Telephone Note I spoke with pt over the phone today. I ordered a course of Augmentin to start 3 days pre-op. He confirmed that penicillins do not cause significant side effects or allergies for him. Venecia Theodore Jr., MD Reconstructive Urology Fellow documented in this encounter [facility] 07-20-2022 Note HNO ID: [id number] Author: RT Echo(R) Service: Radiology Author Type: Technologist Type: Progress Notes Filed: 07/20/2022 4:01 PM Note Text: Radiology Service Progress Note PATIENT NAME: Pernell Heath DATE OF SERVICE: July 20, 2022 TIME: 4:00 PM PATIENT IDENTITY VERIFICATION COMPLETED USING TWO (2) IDENTIFIERS: Name and Date of confirmed by patient verbally. FALL SCREENING: Has the patient had 2 falls in the last year or 1 fall with injury or currently using an Ambulatory Assistive Device (Walker, Cane, Wheelchair, Crutches, etc.)? No PATIENT GENDER DATA: Male PATIENT RELEVANT IMPLANT DATA REVIEWED: Yes RADIOLOGY DEPARTMENT: General X-ray: Exam(s) Completed: GI/ Procedure(s): XR LOOPOGRAM PERIPHERAL IV DATA: Not applicable SIGNED BY: RT Echo(R) July 20, 2022 4:00 PM [facility] 07-20-2022 History of Present illness Narrative Radiology Service Progress Note PATIENT NAME: Pernell Heath DATE OF SERVICE: July 20, 2022 TIME: 4:00 PM PATIENT IDENTITY VERIFICATION COMPLETED USING TWO (2) IDENTIFIERS: Name and Date of confirmed by patient verbally. FALL SCREENING: Has the patient had 2 falls in the last year or 1 fall with injury or currently using an Ambulatory Assistive Device (Walker, Cane, Wheelchair, Crutches, etc.)? No PATIENT GENDER DATA: Male PATIENT RELEVANT IMPLANT DATA REVIEWED: Yes RADIOLOGY DEPARTMENT: General X-ray: Exam(s) Completed: GI/ Procedure(s): XR LOOPOGRAM PERIPHERAL IV DATA: Not applicable SIGNED BY: RT Echo(R) July 20, 2022 4:00 PM documented in this encounter [facility] 07-20-2022 Miscellaneous Notes DOS 08/04 I spoke with [place] [facility] scheduling [phone]. They have the capability of scheduling an echo. I spoke with patient. He did not wish to have me schedule the test for him,he preferred to do it himself. He 'has the number at home.' I did remind him that it needs to be completed before his procedure date. COURTNEY Cardenas RN PAC Good afternoon, Patient will need to be scheduled for an echo prior to surgery on 08/04/22. He says it is hard for him to get to so he would prefer to have it done around [place]. Please call patient and schedule him for an echo. Thank you, DEDRA Lewis July 20, 2022 1:42 PM documented in this encounter [facility] 07-20-2022 Instructions DEDRA Lewis - 07/20/2022 1:31 PM EDT PATIENT PREOPERATIVE INSTRUCTIONS Silvana Winslow MD has scheduled you for your procedure at this surgery center: [facility] [place] Scheduling Office: [phone] -[phone] [place] [address]. Please read below carefully for your personalized instructions. Dietary Restrictions: - No solid food after midnight. - You may have 12 ounces of clear liquids (water, clear juices such as apple juice or gatorade, carbonated beverages, clear tea, black coffee, jello) until 2 hours before scheduled arrival at facility. Medications: Unless instructed differently below, stay on all of your medications until your surgery. Approved medications to take the morning of surgery with a sip of water: Protonix If you take any medications for erectile dysfunction-Cialis (Tadalafil), Levitra, Staxyn (Vardenafil) Viagra (Sildenenafil please do not take these for 48 hours before surgery. If you start any new medications after today's visit, please contact the surgeon's office. Blood Thinning Medications: - Stop NSAIDS (Ibuprofen, Advil, Aleve, Motrin, Celebrex, Mobic, etc.) 7 days before surgery, as directed by your surgeon. - Stop Aspirin 7 days before surgery, as directed by your surgeon. - Stop Vitamin E, ALL multi-vitamins, herbals and dietary supplements 7 days before surgery. - You may take Tylenol (Acetaminophen) or any of your pain medications that do not contain aspirin or NSAIDS as needed. Important Reminders: - If you use CPAP/BIPAP, bring the machine with you to the surgery center. - Candy, mints, and tobacco products are NOT permitted the morning of surgery. - Hearing aids, dentures and glasses may be worn the morning of surgery. - NO jewelry, body piercings, makeup, hairpins or contacts are to be worn the day of surgery. If you develop symptoms such as a fever, cold, or flu, or have other changes to your health within TWO DAYS of scheduled surgery or the morning of surgery, please contact the surgery center above. Personal Belongings: -Please have photo ID and insurance cards. -If you do not have a copy of advance directives on file with us, please bring a copy with you on the day of surgery. - Leave ALL valuables and money at home or with family members. For Outpatient Procedures: - YOU MUST HAVE A RESPONSIBLE EMERGENCY MEDICINE SPECIALIST TAKE YOU HOME. A TELEPHONE COLLECTOR OR INDEPENDENT LIVING INSTRUCTOR CANNOT BE MADE A RESPONSIBLE EMERGENCY MEDICINE SPECIALIST. - We recommend that a responsible person stays with you overnight to take care of you. - You cannot stay in a hotel alone after outpatient surgery. You will not be permitted to have your surgery, if you do not have someone to take care of you. Arrival Time for Surgery: - To obtain your arrival time for surgery, call your physician's office the day before your surgery. - If your surgery is scheduled for Wednesday, call the Wednesday before. Your surgeon s gore seamer will tell you what time to call the office. - If you have not reached the departmental gore seamer by 5 P.M., call [phone] after 5 P.M. the day before your surgery. Please be aware that emergency situations arise, which may delay or change your surgical time. If this happens, we will notify you as soon as possible and regret any inconvenience. If you already have an Advance Directive, please fax a copy to [phone] or email to for it to be added to your chart. If you do not have an Advance Directive, you can find the appropriate form and more information at [email or web address]. We recommend that you complete the Advance Directive form found on the website and bring it with you the day of your surgery. It can be witnessed and scanned into your chart that day. DEDRA Lewis documented in this encounter [facility] 07-20-2022 History and physical note HISTORY AND PHYSICAL EXAMINATION SERVICE DATE: 07/20/2022 SERVICE TIME: 1:18 PM PRIMARY CARE PHYSICIAN: Jessica Arce III, MD REASON FOR VISIT: Pernell Heath is a 57 year old male who is scheduled for EXPLORATORY LAPAROTOMY ADULT, CYSTECTOMY BLADDER at the request of Dr. Silvana Winslow for consultation. My final recommendation will be communicated back to the requesting physician by way of shared medical record or letter. The patient has the following: ACTIVE PROBLEM LIST Neurogenic Bladder Decubital Ulcer Constipation By Delayed Colonic Transit Pressure Sore Mrsa Infection Pyocystis Former Smoker Marijuana Use Gerd (Gastroesophageal Reflux Disease) Anemia Chronic Interstitial Cystitis Mitral Regurgitation Subjective CHIEF COMPLAINT: Chronic interstitial cystitis HPI: 57 year old male presents today for a pre-anesthesia consultation for the above procedure. Patient states he has been experiencing discharge for the past year. He had a h/o partial cystectomy and ileal conduit in 2011. He has an elevated WBC count of 11.23. He denies abdominal pain, fever or chills. PAST MEDICAL HISTORY Diagnosis Date Heart murmur MRSA infection Other kyphoscoliosis and scoliosis Paraplegia (HCC) Pressure sore Smoking PAST SURGICAL HISTORY Procedure Laterality Date PAST SURGICAL HISTORY OF Multiple skin grafts, muscle flaps PAST SURGICAL HISTORY OF 2010 partial cystectomy, ileal conduit SKIN GRAFT PROCEDURE 05/11/2003 graft left ischial FAMILY HISTORY Problem Relation Age of Onset Hypertension Father RI 60's alive Stroke Father Breast Cancer Mother Hypertension Mother No Known Problems Brother No Known Problems Sister No Known Problems Sister No Known Problems Maternal Grandfather No Known Problems Maternal Grandmother No Known Problems Paternal Grandfather No Known Problems Paternal Grandmother Anesthesia Problems No Family History Malig Hyperthermia No Family History SOCIAL HISTORY: Social History Tobacco Use Smoking status: Former Packs/day: 0.50 Years: 25.00 Pack years: 12.50 Types: Cigarettes Quit date: 07/20/2015 Years since quittin.0 Smokeless tobacco: Former Types: Chew Quit date: 2016 Vaping Use Vaping Use: Never used Substance Use Topics Alcohol use: No Alcohol/week: 10.0 standard drinks Comment: 12 pk /month Drug use: Yes Types: Marijuana Comment: medical marijuana vapes daily MEDICATIONS: Prior to Admission medications as of 07/20/22 1320 Medication Sig Last Dose Taking pantoprazole sodium (PANTOPRAZOLE ORAL) Take by mouth. Taking Yes MEDICATION, NON-DATABASE Medical Marijuana Taking Yes neomycin 500 mg tablet At 4:00 pm: take 2 neomycin (500 mg tablets) with a glass of water At 5:00 pm: take 2 neomycin (500 mg tablets) with a glass of water At 10:00 pm: take 2 neomycin (500 mg tablets) with a glass of water Patient not taking: Reported on 07/20/2022 Not Taking No medication comments found. CURRENT ALLERGIES: ALLERGIES Allergen Reactions Amoxicillin Other: See Comments nausea Cipro [Ciprofloxaci* Keflex [Cephalexin] Other: See Comments nausea Latex Rash Levaquin [Levofloxa* Other: See Comments nausea Macrobid [Nitrofura* Metronidazole Vomiting Minocycline Other: See Comments, Itching Sulfa (Sulfonamide * Hives, Unknown Vancomycin Rash COVID VACCINATION STATUS: Fully vaccinated REVIEW OF SYSTEMS: PAIN ASSESSMENT: General: No weight loss, malaise or fevers. Neuro: Denies h/o seizures or stroke. Respiratory: No history of current cough or dyspnea, or pneumonia in the past 6 weeks. + former smoker, quit in 2014 + vapes marijuana daily Cardiovascular: + mild concentric LVH and mild MR in 2011 GI: + GERD, takes Protonix : + chronic interstitial cystitis, see HPI Endocrine: No history of diabetes. Hematology: + h/o anemia, stable + leukocytosis Oncology: No history of CA metastasis, chemo within 30 days, or radiotherapy within 90 days. Has not lost 10% of body wt in 6 months. No history of oncological symptoms or problems. Psych: No history of psychiatric symptoms or problems. Musculoskeletal: Negative for joint pain or swelling, back pain or muscle pain. Skin: Negative for lesions, rash and itching. Objective PHYSICAL EXAM: VITALS: BP 112/67 Pulse 117 Temp (Src) 98.5 (Temporal) Ht 5' 11 [prior to accident. Unsure now[ (1.80m) Wt 90 lb (40.8kg) SpO2 97% BMI 12.56 kg/(m^2). General: Alert and oriented Skin: Normal color, no rash, no lesions. HEENT: No carotid bruits. Cardiovascular: + murmur Lungs: Normal breath sounds, no wheezes or crackles. Abdomen: Soft, non-tender, no rigidity. Extremities: No deformity, no edema or tenderness, no joint swelling or clubbing. Neurological: Wheelchair dependent, b/l LE amputation Pulses: Carotid and radial pulses normal +2. Diagnostic tests reviewed for today's visit: Lab Value Units Date High Low HB 12.6 g/dL 07/20/2022 17.0 13.0 HCT 40.3 % 07/20/2022 51.0 39.0 WBC 11.23 k/uL 07/20/2022 11.00 3.70 PLT 400 k/uL 07/20/2022 400 150 NA No results within date range. K No results within date range. GLUC No results within date range. BUN No results within date range. CREAT No results within date range. PTSEC No results within date range. INR No results within date range. APTT No results within date range. ALT No results within date range. AST No results within date range. TBILI No results within date range. TSH No results within date range. Lab Value Units Date High Low HCGQT No results within date range. UHCG No results within date range. HCG, BODY* No results within date range. Lab Value Units Date High Low ABORHD No results within date range. ABSCREEN No results within date range. No results found for: HBA1C Most recent labs Most recent imaging EKG 2019: Sinus rhythm Right atrial enlargement ST elev, probable normal early repol pattern CXR 2019: No focal consolidation or pulmonary edema. No pleural effusions or pneumothorax. The cardiac and mediastinal silhouettes are normal. Levoscoliotic curvature of the lower thoracic spine. Left-sided rib fractures noted, likely remote in chronicity. IMPRESSION: No acute cardiopulmonary process. Echo 2012: Exam indication: Murmur; pre-op clearance - The left ventricle is normal in size. There is mild concentric left ventricular hypertrophy. Left ventricular systolic function is normal. EF = 57 5% (2D biplane) - The right ventricle is normal in size. Right ventricular systolic function is normal. - Mild MR due to redundant leaflets - No prior echocardiographic exam available for comparison. EKG 2011: NORMAL SINUS RHYTHM RIGHT AXIS DEVIATION INCOMPLETE RIGHT BUNDLE BRANCH BLOCK RIGHT VENTRICULAR HYPERTROPHY COUNTERCLOCKWISE ROTATION Assessment/Plan Former smoker Assessment: quit in 2014. 12.5 pack years. Denies CP, SOB, or cough. Marijuana use Assessment: vapes marijuana daily. GERD (gastroesophageal reflux disease) Assessment: Takes Protonix. Anemia Assessment: hgb 12.6, stable. Chronic interstitial cystitis Assessment: Patient states he has been experiencing discharge for the past year. Elevated WBC count. He scheduled for surgery. Mitral regurgitation Assessment: heart murmur; Mild MR due to redundant leaflets on echo in 2011. Repeat echo ordered prior to surgery. METS: Totally dependent Wheels himself around and does his own transfers into and out of the wheelchair with no CP or undue SOB. ASA Class: 3 ANESTHESIA FINDINGS: Intubation History: No history of difficult intubation Significant Anesthesia Considerations: None Airway Exam: General: Normal appearance Mallampati Score is CLASS II ULBT: Class I - Lower incisors can bite the upper lip above the al line Neck: Normal appearance and function, Distance from hyoid to mentum during neck extension is at least 3 finger breaths Mouth: Normal tongue size and Mouth opening greater than 2 finger breaths Dentition: Intact Airway History: No abnormal airway history STOP BANG Score: Criteria: Tired Age over 50 (57 year old) Male gender Score = 3 PLAN This patient is optimally prepared for surgery pending echo results. CONSULTS: Patient does not require consults for optimization at this time. The Following Tests/Procedures Have Been Initiated: Orders Placed This Encounter perflutren lipid microspheres 1.3 mL in NaCl (PF)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 very complex injury situation. 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 His new subtroch fracture is displaced and causes him mild discomfort and he doesn't like the sounds and feelings of the bones moving around. He also has very extreme scoliosis from his paraplegia in the lumbar spine. This will be treated non-operatively for now. This case will be [facility] to determine if any surgical options are available to the patient. He says he is open to amputations, but his extremely adherent skin proximal skin, multiple wounds, and deep sacral decubiti wound make flap and amputation reconstruction almost certain to cause majorcomplications. Complications/risks of surgery at this point seem to out-weight surgical intervention. Intra-medullary nailing of the fracture itself could be an option, however the nature of the patient's lateral skin, previous and active ulcerations put him at very high risk for infection and complications. For now, we can safely pursue non-operative intervention until the case is discussed in further detail with other surgeons. 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, stage 4 (HCC) History of paraplegia Personal history of other disorders of nervous system and sense organs Closed displaced subtrochanteric fracture of right femur (HCC) Closed fracture of subtrochanteric section of femur Severe malnutrition (HCC) Nutritional marasmus Reason for Referral Specialty Diagnoses / Procedures Referred By Carlos Enrique aviles Referred To Contact Diagnoses Chronic interstitial cystitis with hematuria Procedures REFER TO PACC - PRE ANESTHESIA CONSULTATION CLINIC OFFICE/OUTPATIENT [facility] HIGH MDM 60-74 MINUTES [address] [place] [address] Referral ID Status Reason Start Date Expiration Date Visits Requested Visits Authorized [id number] Authorized PCP Requested Referral 2 06/29/2023 1 1 Specialty Diagnoses / Procedures Referred By Carlos Enrique aviles [facility] Diagnoses Chronic interstitial cystitis with hematuria Procedures ECG COMPLETE ECG ROUTINE ECG W/LEAST 12 LDS W/I&R [facility] [address] [place] [address] [facility] [place] [address] Referral ID Status Reason Start Date Expiration Date Visits Requested Visits Authorized [id number] Pending Review Auto-Generat ed Referral 06/29/2023 1 1 Specialty Diagnoses / Procedures Referred By Contac t Referred To Contact CT IMAGING Diagnoses Infection in abdomen (HCC) Procedures CT ABD/PEL W IVCON CT ABD & PELVIS W/CONTRAST Silvana Winslow MD [id number] Imaging Referral ID Status Reason Start Date Expiration Date Visits Requested Visits Authorized [id number] Pending Review Auto-Generat ed Referral 09/17/2022 10/17/2023 1 1 Specialty Diagnoses / Procedures Referred By Contac t Referred To Contact CT IMAGING Diagnoses Infection in abdomen (HCC) Procedures CT ABD/PEL W IVCON CT ABD & PELVIS W/CONTRAST Silvana Winslow MD [address] [place] [address] Ct Imaging [place] [address] Referral ID Status Reason Start Date Expiration Date V isits Requested Visits Authorized [id number] Closed Auto-Generate d Referral 09/17/2022 10/17/2023 1 1 Additional Source Comments (unrecognized sect ion and content) No Status Records FoundNo Status Records FoundNo Status Records FoundNo Status Records FoundNo Status Records Found INFORMATION SOURCE (unrecogn ized section and content) DATE CREATED AUTHOR AUTHOR'S ORGANIZ ATION 06/19/2020 [facility] DATE CREATED AUTHOR AUTHOR'S ORGANIZ ATION 06/27/2020 [facility] DATE CREATED AUTHOR AUTHOR'S ORGANIZ ATION 11/28/2022 [facility] DATE CREATED AUTHOR AUTHOR'S ORGANIZ ATION 11/04/2023 [facility] Source Comments (unrecognize d section and content) In the event this informatio n is protected by the Federal Confidentiality of Alcohol and Drug Abuse Patient Records regulations: The Federal rules restrict any use of the information to criminally investigate or prosecute any alcohol or drug abuse patient.[facility] the event this information is protected by the Federal Confidentiality of Alcohol and Drug Abuse Patient Records regulations: The Federal rules restrict any use of the information to criminally investigate or prosecute any alcohol or drug abuse patient.[facility] the event this information is protected by the Federal Confidentiality of Alcohol and Drug Abuse Patient Records regulations: The Federal rules restrict any use of the information to criminally investigate or prosecute any alcohol or drug abuse patient.[facility] the event this information is protected by the Federal Confidentiality of Alcohol and Drug Abuse Patient Records regulations: The Federal rules restrict any use of the information to criminally investigate or prosecute any alcohol or drug abuse patient.[facility] the event this information is protected by the Federal Confidentiality of Alcohol and Drug Abuse Patient Records regulations: The Federal rules restrict any use of the information to criminally investigate or prosecute any alcohol or drug abuse patient.[facility] the event this information is protected by the Federal Confidentiality of Alcohol and Drug Abuse Patient Records regulations: The Federal rules restrict any use of the information to criminally investigate or prosecute any alcohol or drug abuse patient.[facility] the event this information is protected by the Federal Confidentiality of Alcohol and Drug Abuse Patient Records regulations: The Federal rules restrict any use of the information to criminally investigate or prosecute any alcohol or drug abuse patient.[facility] the event this information is protected by the Federal Confidentiality of Alcohol and Drug Abuse Patient Records regulations: The Federal rules restrict any use of the information to criminally investigate or prosecute any alcohol or drug abuse patient.[facility] the event this information is protected by the Federal Confidentiality of Alcohol and Drug Abuse Patient Records regulations: The Federal rules restrict any use of the information to criminally investigate or prosecute any alcohol or drug abuse patient.[facility] the event this information is protected by the Federal Confidentiality of Alcohol and Drug Abuse Patient Records regulations: The Federal rules restrict any use of the information to criminally investigate or prosecute any alcohol or drug abuse patient.[facility] the event this information is protected by the Federal Confidentiality of Alcohol and Drug Abuse Patient Records regulations: The Federal rules restrict any use of the information to criminally investigate or prosecute any alcohol or drug abuse patient.[facility] the event this information is protected by the Federal Confidentiality of Alcohol and Drug Abuse Patient Records regulations: The Federal rules restrict any use of the information to criminally investigate or prosecute any alcohol or drug abuse patient.[facility] the event this information is protected by the Federal Confidentiality of Alcohol and Drug Abuse Patient Records regulations: The Federal rules restrict any use of the information to criminally investigate or prosecute any alcohol or drug abuse patient.[facility] the event this information is protected by the Federal Confidentiality of Alcohol and Drug Abuse Patient Records regulations: The Federal rules restrict any use of the information to criminally investigate or prosecute any alcohol or drug abuse patient.[facility] the event this information is protected by the Federal Confidentiality of Alcohol and Drug Abuse Patient Records regulations: The Federal rules restrict any use of the information to criminally investigate or prosecute any alcohol or drug abuse patient.[facility] Hospital[facility] the event this information is protected by the Federal Confidentiality of Alcohol and Drug Abuse Patient Records regulations: The Federal rules restrict any use of the information to criminally investigate or prosecute any alcohol or drug abuse patient.[facility] Hospital[facility] the event this information is protected by the Federal Confidentiality of Alcohol and Drug Abuse Patient Records regulations: The Federal rules restrict any use of the information to criminally investigate or prosecute any alcohol or drug abuse patient.[facility] Hospital[facility] the event this information is protected by the Federal Confidentiality of Alcohol and Drug Abuse Patient Records regulations: The Federal rules restrict any use of the information to criminally investigate or prosecute any alcohol or drug abuse patient.[facility] Hospital[facility] the event this information is protected by the Federal Confidentiality of Alcohol and Drug Abuse Patient Records regulations: The Federal rules restrict any use of the information to criminally investigate or prosecute any alcohol or drug abuse patient.[facility] Care Teams (unrecognized sec tion and content) Hamper Maker Machine Relationship Specialty Start Date End Date Jessica Arce III PCP - General Family Practice 03/14/12 Juanito Hughes [address] [place] [phone] Urology 06/18/22 Hamper Maker Machine Relationship Specialty Start Date End Date Jessica Arce III PCP - General Family Medicine 03/14/12 Juanito Hughes [address] [place] [address] Urology 06/18/22 Hamper Maker Machine Relationship Specialty Start Date End Date Jessica Arce III PCP - General Family Medicine 03/14/12 Juanito Hughes [address] [place] [address] Urology 06/18/22 Hamper Maker Machine Relationship Specialty Start Date End Date Jessica Arce III PCP - General Family Medicine 03/14/12 Juanito Hughes [address] [place] [address] Urology 06/18/22 Hamper Maker Machine Relationship Specialty Start Date End Date Jessica Arce III PCP - General Family Medicine 03/14/12 Juanito Hughes [address] [place] [address] Urology 06/18/22 Hamper Maker Machine Relationship Specialty Start Date End Date ClaudeJessica III PCP - General Family Medicine 03/14/12 Juanito Hughes [address] [place] [address] Urology 06/18/22 Hamper Maker Machine Relationship Specialty Start Date End Date Jessica Arce III PCP - General Family Medicine 03/14/12 Juanito Hughes [address] [address] [place] [address] Urology 06/18/22 Hamper Maker Machine Relationship Specialty Start Date End Date Jessica Arce III PCP - General Family Medicine 03/14/12 Juanito Hughes [address] [address] [place] [address] Urology 06/18/22 Hamper Maker Machine Relationship Specialty Start Date End Date North Jose MD [address] [place] [address] PCP - General Internal Medicine 08/04/22 Juanito Hughes MD [address] [address] [place] [address] Urology 06/18/22 Hamper Maker Machine Relationship Specialty Start Date End Date North Jose MD [address] [place] [address] PCP - General Internal Medicine 08/04/22 Juanito Hughes MD [address] [address] [place] [address] Urology 06/18/22 Hamper Maker Machine Relationship Specialty Start Date End Date North Jose MD [address] [place] [address] PCP - General Internal Medicine 08/04/22 Juanito Hughes MD [address] [address] [place] [address] Urology 06/18/22 Hamper Maker Machine Relationship Specialty Start Date End Date North Jose MD [address] [place] [address] PCP - General Internal Medicine 08/04/22 Juanito Hughes MD [address] [id number] Urology 06/18/22 Hamper Maker Machine Relationship Specialty Start Date End Date North Jose MD [address] [place], [place] [address] PCP - General Internal Medicine 08/04/22 Juanito Hughes MD [address] [place] [address] [id number] Urology 06/18/22 Hamper Maker Machine Relationship Specialty Start Date End Date North Jose MD [address] [place] [address] PCP - General Internal Medicine 08/04/22 Juanito Hughes MD [address] [place] [address] [phone] Urology 06/18/22 Hamper Maker Machine Relationship Specialty Start Date End Date North Jose MD [address] [place] [address] PCP - General Internal Medicine 08/04/22 Juanito Hughes MD [address] [place] [address] [phone] Urology 06/18/22 Reason for Visit (unrecogniz ed section and content) Reason Comments Pre-Op Visit Reason Comments Radio GI Main HB6 Specialty Diagnoses / Procedures Referred By Contac t Referred To Contact XR IMAGING Diagnoses Chronic interstitial cystitis with hematuria Pre-op testing Procedures XR LOOPOGRAM ANTEGRADE UROGRAPHY RADIOLOGICAL SUPVJ & INTERPJ [address] [address] [place] [id number] Xr Imaging Referral ID Status Reason Start Date Expiration Date V isits Requested Visits Authorized [id number] Closed Auto-Generate d Referral 06/30/2022 07/30/2023 1 1 Reason Comments 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 Date Comments Refill Request 07/31/2022 Reason Comments Neurogenic Bladder Specialty Diagnoses / Procedures Referred By Contac t Referred To Contact Urology / UROLOGY Diagnoses Best follow up Procedures EST UROL Silvana Winslow MD [address] [place] [address] Silvana Winslow MD [address] [place] [address] Referral ID Status Reason Start Date Expiration Date V isits Requested Visits Authorized [id number] Pending Review 09/17/2022 12/16/2022 [address] Scan Scheduling Reason Comments Patient Question Reason Comments New Patient Evaluation Wound Check Reason Comments Radiology CT Specialty Diagnoses / Procedures Referred By Contac t Referred To Contact CT IMAGING Diagnoses Infection in abdomen (HCC) Procedures CT ABD/PEL W IVCON CT ABD & PELVIS W/CONTRAST Silvana Winslow MD [address] [place] [address] Ct Imaging [place] [address] Referral ID Status Reason Start Date Expiration Date V isits Requested Visits Authorized [id number] Closed Auto-Generate d Referral 09/17/2022 10/17/2023 1 1 FOR RECORDS PERTAINING TO PATIENTS WHO ARE OR HAVE BEEN ENROLLED IN A CHEMICAL DEPENDENCY/SUBSTANCEABUSE PROGRAM, SOME INFORMATION MAY BE OMITTED. This clinical summary was aggregated from multiple sources. Caution should be exercised in using it in the provision of clinical care. This summary normalizes information from multiple sources, and as a consequence, information in this document may materially change the coding, format and clinical context of patient data. In addition, data may be omitted in some cases. CLINICAL DECISIONS SHOULD BE BASED ON THE PRIMARY CLINICAL RECORDS. [employer] [facility]. provides no warranty or guarantee of the accuracy or completeness of information in this document.
[2023-11-29 16:05] LABS: ALB/GLOB Ratio 0.9 RATIO (0.9-2.4); AST(SGOT) 63 U/L (15-37); Alanine Aminotransfer ALT/SGPT 75 U/L (16-61); Albumin, Serum 3.2 g/dL (3.2-5.0); Alkaline Phosphatase 124 U/L (45-117); Anion Gap 4 (5-15); BUN 30 mg/dL (7-18); Calcium,Total 8.8 mg/dL (8.5-10.1); Chloride 106 mmol/L (98-107); Creatinine, Serum 0.77 mg/dL (0.70-1.30); EST Glomerular Filtration Rate 111 mL/min (>60); Est Glom Filt Rate - Afr Amer 134 mL/min (>60); Globulin 3.7 g/dL (2.2-4.2); Glucose 114 mg/dL (74-106); Magnesium 1.6 mg/dL (1.6-2.6); Potassium 4.1 mmol/L (3.5-5.1); Protein, Total 6.9 g/dL (6.4-8.2); Sodium Level 136 mmol/L (136-145)
[2023-11-29 16:07] LABS: Bacteria 1+ /hpf (None Seen); Red Blood Cells-Urine 5-10 SEEN /hpf (0-5); White Blood Cells >100 SEEN /hpf (0-5)
== END | disposition home or self-care (01) ==
LOC: BIMLAB 13:41
PROVIDERS: PCP Internal Medicine; Visit Provider Nurse Practitioner
DX: L89.314 Pressure ulcer of right buttock, stage 4 (principal); R10.9 Unspecified abdominal pain; R00.0 Tachycardia, unspecified
CPT/HCPCS: 36415; 80053; 81001; 83735; 85027; 87077; 87086; 87088; 87186

== ENCOUNTER 2023-12-13 11:06 | Outpatient (RCR) | payer MEDICARE, MEDICAID, SELFPAY ==
[2023-11-11 00:48] VITALS: BP 107/67; PULSE 105; RESP 18; TEMP 37.1; BMI 19.8
[2023-12-13 11:31] VITALS: BP 85/61; PULSE 121; RESP 20; TEMP 36.3; BMI 19.8
--- NOTE | 2023-12-13 12:47 | PCM.WC.PN ---
History of Present Illness Date of Service: 12/13/23 Chief Complaint: Bilateral ischial pressure sores, Stage IV. History of Wound: Surgery 04/08/20 - 1. Excision bleeding right ischial/perineal pressure sore, Stage IV. 2. Control of prostatic bleeding with electrocautery and Surgicel hemostat. Wound Care - Left ischial and right ischial ulcers are moistened Promogran topped with ABD daily. Wash both ulcers with soap and water at the time of the dressing change. Left ischial ulcer culture 12/28/22 positive for MRSA, Staphylococcus haemolyticus, Corynebacterium striatum, Proteus mirabilus, and Streptococcus group F. He was treated with Augmentin and Doxycycline. Wound culture from 03/02/22 positive for Pseudomonas aeroginosa, Morganella morganii sp sibonii, and Corynebacterium. Due to his allergies and the the sensitivity of the cultures, patient was referred to ID, who placed him on Augmentin and Cipro, which he currently is on and is tolerating. Wound culture from 01/20/21 positive for Proteus mirabilis, Cornybacterium minutissium and Bacteroides fragilis. He was referred to ID for antibiotic management, which he was placed on Cefdinir, Doxycycline and Flagyl for 10 days. Patient has long standing bilateral ischial pressure sores, Stage IV, with the left side extending to the femoral head and the right side extending to the perineal area and the prostate. Surgery would entail quite extensive excision with amputations at a tertiary center. Patient does not want to pursue any heroic surgeries at this time since it is not a guarantee his pressure issues won't recur. With aggressive amputations, his already tenuous balance would be even more disrupted. At the present time, we are providing conservative care on a monthly basis. He stated his right leg gets in the way when transferring. He underwent a right AKA on 06/12/20 in [place]. Wound culture was done on 04/22/20. It showed Morganella morganii, Pseudomonas aeroginosa, Streptococcus group F, and Bacteroides fragilis. He has a lot of antibiotic allergies. His only real option is IV antibiotics. Dr. Chester also saw him at the Wound Center and felt the wounds were colonized and held off on antibiotics at this time. If his clinical situation were to change, then would re-evaluate him for IV antibiotics at that time. Wound culture from 11/01/20 was positive for MRSA, E. coli, Proteus Mirabilis. He was treated with Augmentin and doxycycline. He had a cystectomy and a partial prostatectomy by Dr. Lala at [facility] on 08/04/22. He states he is feeling better than he was before having his bladder removed. Today he denies any fever, chills or nausea and vomiting. Progress of Wound: Left ischial ulcer cluster is stable. It continues to have crevices with significant depth/tunneling and some clear drainage from the crevice when he moves a certain way. There are patches of dryness and thickened scar tissue around the edges of the ulcer. Steffi wound is stable. Right ischial is stable with thickened scarring surrounding the ulcer. Base of ulcer is pink. Objective Data Objective Data Vital Signs: Vital Signs Temp Pulse Resp BP 97.3 F L 121 H 20 H 85/61 L 12/13/23 11:31 12/13/23 11:31 12/13/23 11:31 12/13/23 11:31 Body Mass Index (BMI) 19.8 Charges/Coding Procedures Integumentary 111xxx-113xx: [id number] Manisha musc/fascia 20 sq cm/< Add On Codes: [id number] Manisha musc/fascia add-on Debridement Note Debridement Note Wound debrided: ischial ulcer cluster Laterality: Left Wound Grade/Stage: Stage IV Type of Debridement: Excisional debridement Anesthesia Used: 4% Lidocaine Solution Depth: Down to and including healthy tissue, in the subcutaneous layer and to muscle Percentage of wound debrided: 100 Instrument Used: 5mm curette Tissue Removed: Non viable tissue and slough into the muscle Severity: Fat Layer Exposed Amount of bleeding with debridement: Mild Bleeding Controlled with: Pressure and Compression and gauze Patient tolerated procedure: Patient tolerated procedure well Post-Debridement Measurements and Additional Note: Post-Debridement Measurements/Treatment NIKA - Nurse 1 - General Ulcer Assessment Start: 12/13/23 11:30 Freq: Status: Active Protocol: WILLIAMS Activity Type Activity Date Activity User E-sign Co-sign Detail Recorded Client Recorded Date Recorded By Document 12/13/23 11:31 DL Desktop 12/13/23 11:42 DL 12/13/23 11:31 NIKA - Today's Visit Information Type of service Follow-up Visit (Physician/REPLACER ) Arrival Mode Wheelchair Transfer Assistance None Patient Identification Verified (Name & Yes ) Patient Requires Transmission-Based No Precautions Height and Weight Body Mass Index (BMI) 19.8 BMI Classification Normal Vital Signs Temperature (97.8 F-99.1 F) 97.3 F L Temperature Source Temporal Pulse Rate (60-100) 121 H Pulse Location Monitor Respiratory Rate (12-18) 20 H Respiratory rate source Observation Blood Pressure (90/60-120/80) 85/61 L Blood Pressure Mean (mm Hg) 69 Source Monitor History Since Last Visit- (Skip if this is Patient's initial visit) Have you changed medications since your No last visit? Any new allergies or adverse reactions No Had a fall/change in ADL's that may No increase risk of falls Signs or symptoms of abuse and/or No neglect since last visit Have you been in the hospital since your No last visit? Has dressing in place as prescribed Yes Has compression in place as prescribed N/A Has offloadiing in place as prescribed Yes Experienced any changes in pain level or No management Pain Scale: 0-10 Numeric Is Patient Pain Free? Yes WC - Nurse 1 - General Ulcer Measurement Start: 12/13/23 11:30 Freq: Status: Active Protocol: Activity Type Activity Date Activity User E-sign Co-sign Detail Recorded Client Recorded Date Recorded By Document 12/13/23 11:31 DL Desktop 12/13/23 11:42 DL 12/13/23 11:31 Wound Center Nurse 1 #8 L Ischium cluster -Current Size (cm) - Length 1.1 -Current Size (cm) - Width 3 -Current Size (cm) - Depth 0.1 -Total Square Cm 3.3 -Photo Taken Yes -Undermining/Tunneling Starts (O'clock 1 ) -Undermining/Tunneling Ends (O'clock) 5 -Maximum Distance (cm) 1.4 -Exudate Amt Medium -Exudate Type Serosanguineous -Wound Margin Thickened & Rolled Under -Granulation Amt Large (67-100%) -Granulation Quality [place] -Necrosis Amt Small (1-33%) -Necrotic Tissue Type Adherent Slough -Structure Exposed N/A -Texture (Steffi-wound Skin Appearance) Scarring -Moisture (Steffi-wound Skin Appearance) No Abnormality -Color (Steffi-wound Skin Appearance) No Abnormality -Temperature (Steffi-wound Skin No Abnormality Appearance) (Pt Warm) -Tenderness on Palpation (Steffi-wound No Skin Appearance) -Ulcer Cleansing Soap and Water -Foul Odor after Cleansing No #7 R Ischium cluster -Current Size (cm) - Length 3.8 -Current Size (cm) - Width 0.4 -Current Size (cm) - Depth 0.2 -Total Square Cm 1.52 -Exudate Amt Small -Exudate Type Serosanguineous -Wound Margin Thickened & Rolled Under -Granulation Amt Medium (34-66%) -Granulation Quality Red -Necrosis Amt Medium (34-66%) -Necrotic Tissue Type Adherent Slough -Texture (Steffi-wound Skin Appearance) Scarring -Moisture (Steffi-wound Skin Appearance) Maceration -Color (Steffi-wound Skin Appearance) No Abnormality -Temperature (Steffi-wound Skin No Abnormality Appearance) (Pt Warm) -Ulcer Cleansing Soap and Water -Foul Odor after Cleansing No WC - Nurse 2 - General Ulcer CM Notes Start: 12/13/23 11:30 Freq: Status: Active Protocol: Activity Type Activity Date Activity User E-sign Co-sign Detail Recorded Client Recorded Date Recorded By Document 12/13/23 11:58 Laptop 12/13/23 12:06 12/13/23 11:58 Wound Center Nurse 2 #8 L Ischium cluster -Time 11:59 -Correct Patient Yes -Correct Side, Site, Position Yes -Correct Procedure Yes -Procedure Performed Yes -Type of Procedure Debridement -Clinical Debridement Muscle / Fascia -Tissue Removed Muscle,Fascia -Post Debridement (cm) - Length 7.5 -Post Debridement (cm) - Width 4.0 -Post Debridement (cm) - Depth 1.0 -Total Square (Post) (cm) 30.00 -Area of Debridement (cm) - Length 7.5 -Area of Debridement (cm) - Width 4.0 -Total Square (Area) (cm) 30.00 -Tunneling No -Undermining/Tunneling No -Circular Undermining No -Wound/Ulcer Outcome Not Healed -Ulcer Cleansing Rinsed/ Irrigated with Saline -Foul Odor after Cleansing No -Bioengineered Tissue No -Bleeding Controlled with Pressure -Treatment Response Procedure Tolerated Well -Offloading No -Pressure Reduction Wheelchair cushion -Debridement - Muscle / Fascia, 1st No 20sq cm #7 R Ischium cluster -Time 11:59 -Correct Patient Yes -Correct Side, Site, Position Yes -Correct Procedure Yes -Procedure Performed Yes -Type of Procedure Debridement -Clinical Debridement Muscle / Fascia -Tissue Removed Muscle,Fascia -Post Debridement (cm) - Length 4.5 -Post Debridement (cm) - Width 0.5 -Post Debridement (cm) - Depth 0.3 -Total Square (Post) (cm) 2.25 -Area of Debridement (cm) - Length 4.5 -Area of Debridement (cm) - Width 0.5 -Total Square (Area) (cm) 2.25 -Tunneling No -Undermining/Tunneling No -Circular Undermining No -Wound/Ulcer Outcome Not Healed -Ulcer Cleansing Rinsed/ Irrigated with Saline -Foul Odor after Cleansing No -Bioengineered Tissue No -Bleeding Controlled with Pressure -Treatment Response Procedure Tolerated Well -Offloading No -Pressure Reduction Wheelchair cushion -Debridement - Muscle / Fascia, 1st Yes 20sq cm -Debridement, Muscle/Fascia, ea addt'l 1 20sq cm or part thereof Pain Scale: 0-10 Numeric Is Patient Pain Free? Yes - Nurse 3 - General Ulcer D/C NN Start: 12/13/23 11:30 Freq: Status: Active Protocol: Activity Type Activity Date Activity User E-sign Co-sign Detail Recorded Client Recorded Date Recorded By Document 12/13/23 12:10 KW Desktop 12/13/23 12:10 KW 12/13/23 12:10 Wound Care Center Nurse 3 #8 L Ischium cluster -Primary Dressing Applied Promogran -Primary Dressing Covered/Secured with Dry Gauze, Secured with Tape -Promogran 1 #7 R Ischium cluster -Primary Dressing Covered/Secured with Dry Gauze, Secured with Tape Pain Scale: 0-10 Numeric Is Patient Pain Free? Yes WC - Visit Discharge Discharge Condition Stable Ambulatory Status Wheelchair Medication Reconcilliation completed & No provided to patient/care provider Clinical Summary of Care Provided Yes Additional Wound Wound debrided: perianal/ischial ulcer Laterality: Right Wound Grade/Stage: Stage IV Type of Debridement: Excisional debridement Anesthesia Used: 4% Lidocaine Solution Depth: Down to and including healthy tissue, in the subcutaneous layer and to muscle Percentage of wound debrided: 100 Instrument Used: 3mm curette Tissue Removed: Non viable tissue and slough into the muscle. Severity: Fat Layer Exposed Amount of bleeding with debridement: Mild Bleeding Controlled with: Pressure and Compression and gauze Patient tolerated procedure: Patient tolerated procedure well Assessment/Plan Assessment/Plan (1) Pressure sore of left ischium, stage 4: CODE(S): L89.324 - Pressure ulcer of left buttock, stage 4 (2) Right ischial pressure sore, stage 4: CODE(S): L89.314 - Pressure ulcer of right buttock, stage 4 (3) Perineal ulcer: CODE(S): L98.499 - Non-pressure chronic ulcer of skin of other sites with unspecified severity QUALIFIERS: Non-pressure ulcer stage: unspecified non-pressure ulcer stage Qualified Code(s): L98.499 - Non-pressure chronic ulcer of skin of other sites with unspecified severity (4) Chronic osteomyelitis, pelvis: CODE(S): M86.659 - Other chronic osteomyelitis, unspecified thigh (5) Paraplegia at T4 level: CODE(S): G82.20 - Paraplegia, unspecified (6) History of tobacco use: CODE(S): Z87.891 - Personal history of nicotine dependence (7) Severe protein-calorie malnutrition: CODE(S): E43 - Unspecified severe protein-calorie malnutrition PLAN: Plan Patient was evaluated at the wound healing center today. Wound care - Moistened Promogram covered adaptic and topped with gauze/ABD daily to both the left ischial ulcer and the right ischial/setffi anal ulcer. Wash both ulcers with soap and water at the time of the dressing changes. Encourage nutritional supplementation with protein to help the healing process. Left ischial wound culture obtained 12/28/22 which was positive MRSA, Staphylococcus haemolyticus, Corynebacterium striatum, Proteus mirabilis, Streptococcus group F. He was treated with Augmentin and Doxycycline. He was evaluated by a plastic surgeon at [facility] in April 2023. He states he needs his GI issues improved before he has any surgeries. Follow up four weeks. Call or come in sooner if develop any concerns.
== END 2024-01-09 23:59 | disposition home or self-care (01) ==
LOC: WC 11:06
PROVIDERS: PCP Internal Medicine; Referring Provider Internal Medicine; Visit Provider Nurse Practitioner Family
DX: L89.314 Pressure ulcer of right buttock, stage 4 (principal); L89.324 Pressure ulcer of left buttock, stage 4; G82.20 Paraplegia, unspecified; L98.492 Non-pressure chronic ulcer of skin of other sites with fat layer exposed; M86.68 Other chronic osteomyelitis, other site; Z87.891 Personal history of nicotine dependence; Z86.14 Personal history of Methicillin resistant Staphylococcus aureus infection
CPT/HCPCS: 11043; 11046

== ENCOUNTER → 2023-12-15 | Outpatient (CLI) | payer MEDICARE, MEDICAID, SELFPAY ==
--- NOTE | 2023-12-15 13:16 | CT_ITS ---
INDICATION: left flank/groin pain, concern for pyelonephritis -- also r/o nephrolithiasis EXAMINATION: CT ABDOMEN AND PELVIS WITH AND WITHOUT CONTRAST - CT Abdomen And Pelvis WO/W Contrast Injection TECHNIQUE: Helically acquired images were obtained of the abdomen and pelvis both before and after IV contrast. A radiation dose optimization technique was used for this scan. IV Contrast dosage and agent: 100 cc of Isovue-300. Oral contrast: None. RADIATION DOSAGE (If Supplied By Facility): CTDIvol = ( 11.80 ) mGy, DLP = ( 1687.30 ) mGycm COMPARISON: Prior study dated: 11/30/2022 FINDINGS: LOWER CHEST: Lung bases are clear. No cardiomegaly or pericardial effusion. LIVER: Homogeneous. No focal mass. GALLBLADDER AND BILIARY TREE: No calcified gallstones. No gallbladder distension or wall edema. No intra- or extrahepatic biliary ductal dilation. PANCREAS: No focal cystic or solid mass. SPLEEN: Normal size without focal cystic or solid mass. ADRENAL GLANDS: No nodules. KIDNEYS AND URETERS: Mild thinning of the left renal cortex. No evidence of hydronephrosis. No definite ureteral stones. Stable small simple cysts in the left kidney for which no further follow-up exam is needed. PERITONEUM: No ascites or free air. No other fluid collection. BOWEL: The appendix is not definitely identified. No stomach or bowel distension. No focal inflammatory change. LYMPH NODES: No enlarged mesenteric or retroperitoneal lymph nodes. VESSELS: Aorta is non-dilated. URINARY BLADDER: Absent bladder. The patient again is status post urinary diversion appears to be to the anterior abdominal wall. REPRODUCTIVE ORGANS: No pelvic masses. ABDOMINAL WALL: No discrete abdominal or pelvic wall hernia. BONES: Thickening of the perineum. Severe deformity of the pelvic structures are unchanged. Levoscoliosis. CT/CT Abd/Pelvis W/WO Contrast IMPRESSION: 1. No evidence of urinary tract stones or hydronephrosis. 2. No new focal acute inflammatory process. 3. Status post ileal loop and urinary diversion. Electronically Signed: Gio Neri MD at 15:16 EST ,
== END | disposition home or self-care (01) ==
LOC: CT 13:15
PROVIDERS: PCP Internal Medicine; Referring Provider Nurse Practitioner; Visit Provider Nurse Practitioner
DX: R10.9 Unspecified abdominal pain (principal)
CPT/HCPCS: 74178; Q9967

== ENCOUNTER 2024-01-24 10:45 | Outpatient (RCR) | payer MEDICARE, MEDICAID, SELFPAY ==
[2024-01-10 00:06] VITALS: BP 85/61; PULSE 121; RESP 20; TEMP 36.3; BMI 19.8
[2024-01-24 10:46] VITALS: BP 139/71; PULSE 83; RESP 16; TEMP 36.8; BMI 19.8
--- NOTE | 2024-01-24 12:54 | PCM.WC.PN ---
History of Present Illness Date of Service: 01/24/24 Chief Complaint: Bilateral ischial pressure sores, Stage IV. History of Wound: Surgery 04/08/20 - 1. Excision bleeding right ischial/perineal pressure sore, Stage IV. 2. Control of prostatic bleeding with electrocautery and Surgicel hemostat. Wound Care - Left ischial and right ischial ulcers are moistened Promogran topped with ABD daily. Wash both ulcers with soap and water at the time of the dressing change. Left ischial ulcer culture 12/28/22 positive for MRSA, Staphylococcus haemolyticus, Corynebacterium striatum, Proteus mirabilus, and Streptococcus group F. He was treated with Augmentin and Doxycycline. Wound culture from 03/02/22 positive for Pseudomonas aeroginosa, Morganella morganii sp sibonii, and Corynebacterium. Due to his allergies and the the sensitivity of the cultures, patient was referred to ID, who placed him on Augmentin and Cipro, which he currently is on and is tolerating. Wound culture from 01/20/21 positive for Proteus mirabilis, Cornybacterium minutissium and Bacteroides fragilis. He was referred to ID for antibiotic management, which he was placed on Cefdinir, Doxycycline and Flagyl for 10 days. Patient has long standing bilateral ischial pressure sores, Stage IV, with the left side extending to the femoral head and the right side extending to the perineal area and the prostate. Surgery would entail quite extensive excision with amputations at a tertiary center. Patient does not want to pursue any heroic surgeries at this time since it is not a guarantee his pressure issues won't recur. With aggressive amputations, his already tenuous balance would be even more disrupted. At the present time, we are providing conservative care on a monthly basis. He stated his right leg gets in the way when transferring. He underwent a right AKA on 06/12/20 in [place]. Wound culture was done on 04/22/20. It showed Morganella morganii, Pseudomonas aeroginosa, Streptococcus group F, and Bacteroides fragilis. He has a lot of antibiotic allergies. His only real option is IV antibiotics. Dr. Chester also saw him at the Wound Center and felt the wounds were colonized and held off on antibiotics at this time. If his clinical situation were to change, then would re-evaluate him for IV antibiotics at that time. Wound culture from 11/01/20 was positive for MRSA, E. coli, Proteus Mirabilis. He was treated with Augmentin and doxycycline. He had a cystectomy and a partial prostatectomy by Dr. Lala at [facility] on 08/04/22. He states he is feeling better than he was before having his bladder removed. Today he denies any fever, chills or nausea and vomiting. Progress of Wound: Left ischial ulcer cluster is stable. It continues to have crevices with depth/tunneling and occasionally has some clear drainage from the crevice when he moves a certain way. There are patches of dryness and thickened scar tissue around the edges of the ulcer. Steffi wound is stable. Right ischial is stable with thickened scarring surrounding the ulcer. Base of ulcer is pink. Objective Data Objective Data Vital Signs: Vital Signs Temp Pulse Resp BP O2 Del Method 98.3 F 83 16 139/71 H Room Air 01/24/24 10:46 01/24/24 10:46 01/24/24 10:46 01/24/24 10:46 01/24/24 10:46 Oxygen Delivery Method Room Air Body Mass Index (BMI) 19.8 Charges/Coding Procedures Integumentary 111xxx-113xx: 29461 Manisha musc/fascia 20 sq cm/< Add On Codes: 10235 Manisha musc/fascia add-on (x2) Debridement Note Debridement Note Wound debrided: ischial ulcer cluster Laterality: Left Wound Grade/Stage: Stage IV Type of Debridement: Excisional debridement Anesthesia Used: 4% Lidocaine Solution Depth: Down to and including healthy tissue, in the subcutaneous layer and to muscle Percentage of wound debrided: 100 Instrument Used: 5mm curette Tissue Removed: Non viable tissue and slough into the muscle Severity: Fat Layer Exposed Amount of bleeding with debridement: Mild Bleeding Controlled with: Pressure and Compression and gauze Patient tolerated procedure: Patient tolerated procedure well Post-Debridement Measurements and Additional Note: Post-Debridement Measurements/Treatment WC - Nurse 1 - General Ulcer Assessment Start: 01/24/24 10:46 Freq: Status: Active Protocol: WILLIAMS Activity Type Activity Date Activity User E-sign Co-sign Detail Recorded Client Recorded Date Recorded By Document 01/24/24 10:46 KW Desktop 01/24/24 10:59 KW 01/24/24 10:46 - Today's Visit Information Type of service Follow-up Visit (Physician/[facility] ) Arrival Mode Wheelchair Patient Identification Verified (Name & Yes ) Height and Weight Body Mass Index (BMI) 19.8 BMI Classification Normal Vital Signs Temperature (97.8 F-99.1 F) 98.3 F Temperature Source Temporal Pulse Rate (60-100) 83 Pulse Location Monitor Respiratory Rate (12-18) 16 Respiratory rate source Observation Oxygen Delivery Method Room Air Blood Pressure (90/60-120/80) 139/71 H Blood Pressure Mean (mm Hg) 93 Source Monitor Position Sitting Blood Pressure Location Left Arm History Since Last Visit- (Skip if this is Patient's initial visit) Have you changed medications since your No last visit? Any new allergies or adverse reactions No Had a fall/change in ADL's that may No increase risk of falls Signs or symptoms of abuse and/or No neglect since last visit Have you been in the hospital since your No last visit? Has dressing in place as prescribed Yes Has compression in place as prescribed N/A Has offloadiing in place as prescribed N/A Experienced any changes in pain level or No management Pain Scale: 0-10 Numeric Is Patient Pain Free? Yes - Nurse 1 - General Ulcer Measurement Start: 01/24/24 10:46 Freq: Status: Active Protocol: Activity Type Activity Date Activity User E-sign Co-sign Detail Recorded Client Recorded Date Recorded By Document 01/24/24 10:46 KW Desktop 01/24/24 10:59 KW 01/24/24 10:46 Wound Center Nurse 1 #8 L Ischium cluster -Combined with (Name of Wound-Exactly 5 as it is documented) -Current Size (cm) - Length 7 -Current Size (cm) - Width 0.5 -Total Square Cm 3.5 -Date of Last Picture (Recall this 01/24/24 field) -Photo Taken Yes -Granulation Amt Large (67-100%) -Granulation Quality [place] -Necrosis Amt Small (1-33%) -Necrotic Tissue Type Adherent Slough -Texture (Steffi-wound Skin Appearance) Assessed,Callus -Moisture (Steffi-wound Skin Appearance) Assessed -Color (Steffi-wound Skin Appearance) Assessed, Erythema -Temperature (Steffi-wound Skin No Abnormality Appearance) (Pt Warm) -Tenderness on Palpation (Steffi-wound No Skin Appearance) -Ulcer Cleansing Soap and Water -Anesthetic Used 5% Lidocaine Gel #7 R Ischium cluster -Current Size (cm) - Length 0.1 -Current Size (cm) - Width 0.1 -Current Size (cm) - Depth 0.1 -Total Square Cm 0.01 -Granulation Amt Large (67-100%) -Granulation Quality [place] -Texture (Steffi-wound Skin Appearance) Callus -Moisture (Steffi-wound Skin Appearance) Assessed -Color (Steffi-wound Skin Appearance) Assessed -Temperature (Steffi-wound Skin No Abnormality Appearance) (Pt Warm) -Ulcer Cleansing Soap and Water -Foul Odor after Cleansing No -Wound Comment(s) NO LIDOCAINE WC - Nurse 2 - General Ulcer CM Notes Start: 01/24/24 10:46 Freq: Status: Active Protocol: Activity Type Activity Date Activity User E-sign Co-sign Detail Recorded Client Recorded Date Recorded By Document 01/24/24 11:43 Laptop 01/24/24 11:53 01/24/24 11:43 Wound Center Nurse 2 #8 L Ischium cluster -Time 11:44 -Correct Patient Yes -Correct Side, Site, Position Yes -Correct Procedure Yes -Procedure Performed Yes -Type of Procedure Debridement -Clinical Debridement Muscle / Fascia -Tissue Removed Muscle,Fascia -Post Debridement (cm) - Length 7.8 -Post Debridement (cm) - Width 5.5 -Post Debridement (cm) - Depth 0.5 -Total Square (Post) (cm) 42.90 -Area of Debridement (cm) - Length 7.8 -Area of Debridement (cm) - Width 5.5 -Total Square (Area) (cm) 42.90 -Tunneling No -Undermining/Tunneling No -Circular Undermining No -Wound/Ulcer Outcome Not Healed -Ulcer Cleansing Rinsed/ Irrigated with Saline -Foul Odor after Cleansing No -Bioengineered Tissue No -Bleeding Controlled with Pressure,Silver Nitrate -Treatment Response Procedure Tolerated Well -Offloading No -Pressure Reduction Wheelchair cushion -Debridement - Muscle / Fascia, 1st Yes 20sq cm -Debridement, Muscle/Fascia, ea addt'l 2 20sq cm or part thereof #7 R Ischium cluster -Time 11:45 -Correct Patient Yes -Correct Side, Site, Position Yes -Correct Procedure Yes -Procedure Performed Yes -Type of Procedure Debridement -Clinical Debridement Muscle / Fascia -Tissue Removed Muscle,Fascia -Post Debridement (cm) - Length 3.0 -Post Debridement (cm) - Width 1.0 -Post Debridement (cm) - Depth 0.3 -Total Square (Post) (cm) 3.00 -Area of Debridement (cm) - Length 3.0 -Area of Debridement (cm) - Width 1.0 -Total Square (Area) (cm) 3.00 -Tunneling No -Undermining/Tunneling No -Circular Undermining No -Wound/Ulcer Outcome Not Healed -Ulcer Cleansing Rinsed/ Irrigated with Saline -Foul Odor after Cleansing No -Bioengineered Tissue No -Bleeding Controlled with Pressure -Treatment Response Procedure Tolerated Well -Offloading No -Pressure Reduction Wheelchair cushion -Debridement - Muscle / Fascia, 1st No 20sq cm Pain Scale: 0-10 Numeric Is Patient Pain Free? Yes - Nurse 3 - General Ulcer D/C NN Start: 01/24/24 10:46 Freq: Status: Active Protocol: Activity Type Activity Date Activity User E-sign Co-sign Detail Recorded Client Recorded Date Recorded By Document 01/24/24 11:57 DL Desktop 01/24/24 12:01 DL 01/24/24 11:57 Wound Care Center Nurse 3 #8 L Ischium cluster -Ulcer Cleansing Rinsed/ Irrigated with Saline -Foul Odor after Cleansing No -Primary Dressing Applied NonAdherent Contact Layer, Promogran -Other Dressing ABD -Primary Dressing Covered/Secured with Secured with Tape -Promogran 1 #7 R Ischium cluster -Ulcer Cleansing Rinsed/ Irrigated with Saline -Foul Odor after Cleansing No -Primary Dressing Applied NonAdherent Contact Layer -Other Dressing promogran -Primary Dressing Covered/Secured with Dry Gauze, Secured with Tape -Other Covering ABD Treatment Response Procedure Tolerated Well Pain Scale: 0-10 Numeric Is Patient Pain Free? Yes WC - Visit Discharge Discharge Condition Stable Ambulatory Status Wheelchair Transportation Private Auto Additional Wound Wound debrided: perianal/ischial ulcer Laterality: Right Wound Grade/Stage: Stage IV Type of Debridement: Excisional debridement Anesthesia Used: 4% Lidocaine Solution Depth: Down to and including healthy tissue, in the subcutaneous layer and to muscle Percentage of wound debrided: 100 Instrument Used: 5mm curette Tissue Removed: Non viable tissue and slough into the muscle. Severity: Fat Layer Exposed Amount of bleeding with debridement: Mild Bleeding Controlled with: Pressure and Compression and gauze Patient tolerated procedure: Patient tolerated procedure well Assessment/Plan Assessment/Plan (1) Pressure sore of left ischium, stage 4: CODE(S): L89.324 - Pressure ulcer of left buttock, stage 4 (2) Right ischial pressure sore, stage 4: CODE(S): L89.314 - Pressure ulcer of right buttock, stage 4 (3) Perineal ulcer: CODE(S): L98.499 - Non-pressure chronic ulcer of skin of other sites with unspecified severity QUALIFIERS: Non-pressure ulcer stage: unspecified non-pressure ulcer stage Qualified Code(s): L98.499 - Non-pressure chronic ulcer of skin of other sites with unspecified severity (4) Chronic osteomyelitis, pelvis: CODE(S): M86.659 - Other chronic osteomyelitis, unspecified thigh (5) Paraplegia at T4 level: CODE(S): G82.20 - Paraplegia, unspecified (6) History of tobacco use: CODE(S): Z87.891 - Personal history of nicotine dependence (7) Severe protein-calorie malnutrition: CODE(S): E43 - Unspecified severe protein-calorie malnutrition PLAN: Plan Patient was evaluated at the wound healing center today. Wound care - Moistened Promogram covered adaptic and topped with gauze/ABD daily to both the left ischial ulcer and the right ischial/steffi anal ulcer. Wash both ulcers with soap and water at the time of the dressing changes. Encourage nutritional supplementation with protein to help the healing process. Left ischial wound culture obtained 12/28/22 which was positive MRSA, Staphylococcus haemolyticus, Corynebacterium striatum, Proteus mirabilis, Streptococcus group F. He was treated with Augmentin and Doxycycline. He was evaluated by a plastic surgeon at [facility] in April 2023. He states he needs his GI issues improved before he has any surgeries. Follow up four weeks. Call or come in sooner if develop any concerns.
== END 2024-02-08 23:59 | disposition home or self-care (01) ==
LOC: WC 10:45
PROVIDERS: PCP Internal Medicine; Referring Provider Internal Medicine; Visit Provider Nurse Practitioner Family
DX: L89.314 Pressure ulcer of right buttock, stage 4 (principal); L89.324 Pressure ulcer of left buttock, stage 4; G82.20 Paraplegia, unspecified; L98.492 Non-pressure chronic ulcer of skin of other sites with fat layer exposed; M86.68 Other chronic osteomyelitis, other site; Z86.14 Personal history of Methicillin resistant Staphylococcus aureus infection; Z87.891 Personal history of nicotine dependence; Z79.899 Other long term (current) drug therapy
CPT/HCPCS: 11043; 11046

== ENCOUNTER 2024-02-21 10:38 | Outpatient (RCR) | payer MEDICARE, MEDICAID, SELFPAY ==
[2024-02-09 00:37] VITALS: BP 139/71; PULSE 83; RESP 16; TEMP 36.8; BMI 19.8
[2024-02-21 11:18] VITALS: BP 109/68; PULSE 103; RESP 18; TEMP 36.4; BMI 19.8
--- NOTE | 2024-02-21 11:25 | PCM.WC.PN ---
History of Present Illness Date of Service: 02/21/24 Chief Complaint: Bilateral ischial pressure sores, Stage IV. History of Wound: Surgery 04/08/20 - 1. Excision bleeding right ischial/perineal pressure sore, Stage IV. 2. Control of prostatic bleeding with electrocautery and Surgicel hemostat. Wound Care - Left ischial and right ischial ulcers are moistened Promogran topped with ABD daily. Wash both ulcers with soap and water at the time of the dressing change. Left ischial ulcer culture 12/28/22 positive for MRSA, Staphylococcus haemolyticus, Corynebacterium striatum, Proteus mirabilus, and Streptococcus group F. He was treated with Augmentin and Doxycycline. Wound culture from 03/02/22 positive for Pseudomonas aeroginosa, Morganella morganii sp sibonii, and Corynebacterium. Due to his allergies and the the sensitivity of the cultures, patient was referred to ID, who placed him on Augmentin and Cipro, which he currently is on and is tolerating. Wound culture from 01/20/21 positive for Proteus mirabilis, Cornybacterium minutissium and Bacteroides fragilis. He was referred to ID for antibiotic management, which he was placed on Cefdinir, Doxycycline and Flagyl for 10 days. Patient has long standing bilateral ischial pressure sores, Stage IV, with the left side extending to the femoral head and the right side extending to the perineal area and the prostate. Surgery would entail quite extensive excision with amputations at a tertiary center. Patient does not want to pursue any heroic surgeries at this time since it is not a guarantee his pressure issues won't recur. With aggressive amputations, his already tenuous balance would be even more disrupted. At the present time, we are providing conservative care on a monthly basis. He stated his right leg gets in the way when transferring. He underwent a right AKA on 06/12/20 in [place]. Wound culture was done on 04/22/20. It showed Morganella morganii, Pseudomonas aeroginosa, Streptococcus group F, and Bacteroides fragilis. He has a lot of antibiotic allergies. His only real option is IV antibiotics. Dr. Chester also saw him at the Wound Center and felt the wounds were colonized and held off on antibiotics at this time. If his clinical situation were to change, then would re-evaluate him for IV antibiotics at that time. Wound culture from 11/01/20 was positive for MRSA, E. coli, Proteus Mirabilis. He was treated with Augmentin and doxycycline. He had a cystectomy and a partial prostatectomy by Dr. Lala at [facility] on 08/04/22. He states he is feeling better than he was before having his bladder removed. Today he denies any fever, chills or nausea and vomiting. Progress of Wound: Left ischial ulcer cluster is stable. It continues to have crevices with depth/tunneling and occasionally has some clear drainage from the crevice when he moves a certain way. There are patches of dryness and thickened scar tissue around the edges of the ulcer. Steffi wound is stable. Right ischial is stable with thickened scarring surrounding the ulcer. Base of ulcer is pink. There is some maceration surrounding this ulcer. Objective Data Objective Data Vital Signs: Vital Signs Temp Pulse Resp BP O2 Del Method 97.5 F L 103 H 18 109/68 Room Air 02/21/24 11:18 02/21/24 11:18 02/21/24 11:18 02/21/24 11:18 02/21/24 11:18 Oxygen Delivery Method Room Air Body Mass Index (BMI) 19.8 Charges/Coding Procedures Integumentary 111xxx-113xx: [id number] Manisha musc/fascia 20 sq cm/< Add On Codes: 88330 Manisha musc/fascia add-on Debridement Note Debridement Note Wound debrided: ischial ulcer cluster Laterality: Left Wound Grade/Stage: Stage IV Type of Debridement: Excisional debridement Anesthesia Used: 4% Lidocaine Solution Depth: Down to and including healthy tissue, in the subcutaneous layer and to muscle Percentage of wound debrided: 100 Instrument Used: 5mm curette Tissue Removed: Non viable tissue and slough into the muscle Severity: Fat Layer Exposed Amount of bleeding with debridement: Mild Bleeding Controlled with: Pressure and Compression and gauze Patient tolerated procedure: Patient tolerated procedure well Post-Debridement Measurements and Additional Note: Post-Debridement Measurements/Treatment WC - Nurse 1 - General Ulcer Assessment Start: 02/21/24 11:17 Freq: Status: Active Protocol: WILLIAMS Activity Type Activity Date Activity User E-sign Co-sign Detail Recorded Client Recorded Date Recorded By Document 02/21/24 11:18 KW Desktop 02/21/24 11:27 KW 02/21/24 11:18 - Today's Visit Information Type of service Follow-up Visit (Physician/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 MACHINE TAILER ) Arrival Mode Wheelchair Patient Identification Verified (Name & Yes ) Height and Weight Body Mass Index (BMI) 19.8 BMI Classification Normal Vital Signs Temperature (97.8 F-99.1 F) 97.5 F L Temperature Source Temporal Pulse Rate (60-100) 103 H Pulse Location Monitor Respiratory Rate (12-18) 18 Respiratory rate source Observation Oxygen Delivery Method Room Air Blood Pressure (90/60-120/80) 109/68 Blood Pressure Mean (mm Hg) 81 Source Monitor Position Sitting Blood Pressure Location Left Arm History Since Last Visit- (Skip if this is Patient's initial visit) Have you changed medications since your No last visit? Any new allergies or adverse reactions No Had a fall/change in ADL's that may No increase risk of falls Signs or symptoms of abuse and/or No neglect since last visit Have you been in the hospital since your No last visit? Has dressing in place as prescribed Yes Has compression in place as prescribed N/A Has offloadiing in place as prescribed N/A Experienced any changes in pain level or No management Pain Scale: 0-10 Numeric Is Patient Pain Free? Yes - Nurse 1 - General Ulcer Measurement Start: 02/21/24 11:17 Freq: Status: Active Protocol: Activity Type Activity Date Activity User E-sign Co-sign Detail Recorded Client Recorded Date Recorded By Document 02/21/24 11:18 KW Desktop 02/21/24 11:27 KW 02/21/24 11:18 Wound Center Nurse 1 #8 L Ischium cluster -Current Size (cm) - Length 0.1 -Current Size (cm) - Width 0.1 -Current Size (cm) - Depth 0.1 -Total Square Cm 0.01 -Texture (Steffi-wound Skin Appearance) Assessed, Scarring -Moisture (Steffi-wound Skin Appearance) Assessed -Color (Steffi-wound Skin Appearance) Assessed -Temperature (Steffi-wound Skin No Abnormality Appearance) (Pt Warm) -Tenderness on Palpation (Steffi-wound No Skin Appearance) -Ulcer Cleansing Soap and Water -Foul Odor after Cleansing No -Anesthetic Used 4% Lidocaine Solution #7 R Ischium cluster -Current Size (cm) - Length 2 -Current Size (cm) - Width 0.5 -Current Size (cm) - Depth 0.2 -Total Square Cm 1.0 -Date of Last Picture (Recall this 02/21/24 field) -Exudate Type Serosanguineous -Wound Margin Distinct, Outline Attached -Granulation Amt Large (67-100%) -Granulation Quality [place] -Texture (Steffi-wound Skin Appearance) Assessed, Scarring -Moisture (Steffi-wound Skin Appearance) Assessed -Color (Steffi-wound Skin Appearance) Assessed -Temperature (Steffi-wound Skin No Abnormality Appearance) (Pt Warm) -Tenderness on Palpation (Steffi-wound No Skin Appearance) -Ulcer Cleansing Soap and Water -Foul Odor after Cleansing No -Anesthetic Used 4% Lidocaine Solution WC - Nurse 2 - General Ulcer CM Notes Start: 02/21/24 11:17 Freq: Status: Active Protocol: Activity Type Activity Date Activity User E-sign Co-sign Detail Recorded Client Recorded Date Recorded By Document 02/21/24 11:44 DS Desktop 02/21/24 11:51 DS 02/21/24 11:44 Wound Center Nurse 2 #8 L Ischium cluster -Time 11:44 -Correct Patient Yes -Correct Side, Site, Position Yes -Correct Procedure Yes -Procedure Performed Yes -Type of Procedure Debridement -Clinical Debridement Muscle / Fascia -Tissue Removed Muscle -Post Debridement (cm) - Length 7.0 -Post Debridement (cm) - Width 5.0 -Post Debridement (cm) - Depth 0.9 -Total Square (Post) (cm) 35.00 -Area of Debridement (cm) - Length 7.0 -Area of Debridement (cm) - Width 5.0 -Total Square (Area) (cm) 35.00 -Tunneling No -Undermining/Tunneling No -Circular Undermining No -Wound/Ulcer Outcome Not Healed -Ulcer Cleansing Rinsed/ Irrigated with Saline -Bleeding Controlled with Pressure -Treatment Response Procedure Tolerated Well -Debridement - Muscle / Fascia, 1st Yes 20sq cm -Debridement, Muscle/Fascia, ea addt'l 1 20sq cm or part thereof #7 R Ischium cluster -Time 11:45 -Correct Patient Yes -Correct Side, Site, Position Yes -Correct Procedure Yes -Procedure Performed Yes -Type of Procedure Debridement -Clinical Debridement Muscle / Fascia -Tissue Removed Muscle -Post Debridement (cm) - Length 3.5 -Post Debridement (cm) - Width 0.7 -Post Debridement (cm) - Depth 0.4 -Total Square (Post) (cm) 2.45 -Area of Debridement (cm) - Length 3.5 -Area of Debridement (cm) - Width 0.7 -Total Square (Area) (cm) 2.45 -Tunneling No -Undermining/Tunneling No -Circular Undermining No -Wound/Ulcer Outcome Not Healed -Ulcer Cleansing Rinsed/ Irrigated with Saline -Bleeding Controlled with Pressure -Treatment Response Procedure Tolerated Well -Debridement - Muscle / Fascia, 1st Yes 20sq cm Pain Scale: 0-10 Numeric Is Patient Pain Free? Yes - Nurse 3 - General Ulcer D/C NN Start: 02/21/24 11:17 Freq: Status: Active Protocol: Activity Type Activity Date Activity User E-sign Co-sign Detail Recorded Client Recorded Date Recorded By Document 02/21/24 11:56 [facility] Desktop 02/21/24 11:57 [facility] 02/21/24 11:56 Wound Care Center Nurse 3 #8 L Ischium cluster -Ulcer Cleansing Rinsed/ Irrigated with Saline -Foul Odor after Cleansing No -Primary Dressing Applied Promogran -Other Dressing abd -Primary Dressing Covered/Secured with Secured with Tape -Other Covering drsg per kw apns -Promogran 1 #7 R Ischium cluster -Ulcer Cleansing Rinsed/ Irrigated with Saline -Foul Odor after Cleansing No -Primary Dressing Applied Promogran -Other Dressing abd -Primary Dressing Covered/Secured with Secured with Tape -Other Covering drsg per kw apns -Promogran 0 Treatment Response Procedure Tolerated Well Pain Scale: 0-10 Numeric Is Patient Pain Free? Yes - Visit Discharge Discharge Condition Stable Ambulatory Status Wheelchair Transportation Private Auto Additional Wound Wound debrided: perianal/ischial ulcer Laterality: Right Wound Grade/Stage: Stage IV Type of Debridement: Excisional debridement Anesthesia Used: 4% Lidocaine Solution Depth: Down to and including healthy tissue, in the subcutaneous layer and to muscle Percentage of wound debrided: 100 Instrument Used: 5mm curette Tissue Removed: Non viable tissue and slough into the muscle. Severity: Fat Layer Exposed Amount of bleeding with debridement: Mild Bleeding Controlled with: Pressure and Compression and gauze Patient tolerated procedure: Patient tolerated procedure well Assessment/Plan Assessment/Plan (1) Pressure sore of left ischium, stage 4: CODE(S): L89.324 - Pressure ulcer of left buttock, stage 4 (2) Right ischial pressure sore, stage 4: CODE(S): L89.314 - Pressure ulcer of right buttock, stage 4 (3) Perineal ulcer: CODE(S): L98.499 - Non-pressure chronic ulcer of skin of other sites with unspecified severity QUALIFIERS: Non-pressure ulcer stage: unspecified non-pressure ulcer stage Qualified Code(s): L98.499 - Non-pressure chronic ulcer of skin of other sites with unspecified severity (4) Chronic osteomyelitis, pelvis: CODE(S): M86.659 - Other chronic osteomyelitis, unspecified thigh (5) Paraplegia at T4 level: CODE(S): G82.20 - Paraplegia, unspecified (6) History of tobacco use: CODE(S): Z87.891 - Personal history of nicotine dependence (7) Severe protein-calorie malnutrition: CODE(S): E43 - Unspecified severe protein-calorie malnutrition PLAN: Plan Patient was evaluated at the wound healing center today. Wound care - Moistened Promogram covered adaptic and topped with gauze/ABD daily to both the left ischial ulcer and the right ischial/steffi anal ulcer. Wash both ulcers with soap and water at the time of the dressing changes. Encourage nutritional supplementation with protein to help the healing process. Left ischial wound culture obtained 12/28/22 which was positive MRSA, Staphylococcus haemolyticus, Corynebacterium striatum, Proteus mirabilis, Streptococcus group F. He was treated with Augmentin and Doxycycline. He was evaluated by a plastic surgeon at [facility] in April 2023. He states he needs his GI issues improved before he has any surgeries. Pernell states that he has too much difficulty with transportation to go to [place] for surgery. Follow up four weeks. Call or come in sooner if develop any concerns.
--- NOTE | 2024-02-22 08:34 | WC ---
02/21/2024 LEFT ISCHIUM CLUSTER
--- NOTE | 2024-02-22 08:37 | WC ---
02/21/2024 RIGHT ISCHIUM CLUSTER
== END 2024-03-10 23:59 | disposition home or self-care (01) ==
LOC: WC 10:38
PROVIDERS: PCP Internal Medicine; Referring Provider Internal Medicine; Visit Provider Nurse Practitioner Family
DX: L89.324 Pressure ulcer of left buttock, stage 4 (principal); L89.314 Pressure ulcer of right buttock, stage 4; G82.20 Paraplegia, unspecified; L98.492 Non-pressure chronic ulcer of skin of other sites with fat layer exposed; M86.659 Other chronic osteomyelitis, unspecified thigh; Z87.891 Personal history of nicotine dependence; Z86.14 Personal history of Methicillin resistant Staphylococcus aureus infection
CPT/HCPCS: 11043; 11046

== ENCOUNTER 2024-03-27 12:50 | Outpatient (RCR) | payer MEDICARE, MEDICAID, SELFPAY ==
[2024-03-11 00:54] VITALS: BP 139/71; PULSE 83; RESP 16; TEMP 36.8; BMI 19.8
[2024-03-27 13:10] VITALS: BP 124/72; PULSE 100; RESP 20; TEMP 36.4; BMI 19.8
--- NOTE | 2024-03-27 13:46 | PCM.WC.PN ---
History of Present Illness Date of Service: 03/27/24 Chief Complaint: Bilateral ischial pressure sores, Stage IV. History of Wound: Surgery 04/08/20 - 1. Excision bleeding right ischial/perineal pressure sore, Stage IV. 2. Control of prostatic bleeding with electrocautery and Surgicel hemostat. Wound Care - Left ischial and right ischial ulcers are moistened Promogran topped with ABD daily. Wash both ulcers with soap and water at the time of the dressing change. Left ischial ulcer culture 12/28/22 positive for MRSA, Staphylococcus haemolyticus, Corynebacterium striatum, Proteus mirabilus, and Streptococcus group F. He was treated with Augmentin and Doxycycline. Wound culture from 03/02/22 positive for Pseudomonas aeroginosa, Morganella morganii sp sibonii, and Corynebacterium. Due to his allergies and the the sensitivity of the cultures, patient was referred to ID, who placed him on Augmentin and Cipro, which he currently is on and is tolerating. Wound culture from 01/20/21 positive for Proteus mirabilis, Cornybacterium minutissium and Bacteroides fragilis. He was referred to ID for antibiotic management, which he was placed on Cefdinir, Doxycycline and Flagyl for 10 days. Patient has long standing bilateral ischial pressure sores, Stage IV, with the left side extending to the femoral head and the right side extending to the perineal area and the prostate. Surgery would entail quite extensive excision with amputations at a tertiary center. Patient does not want to pursue any heroic surgeries at this time since it is not a guarantee his pressure issues won't recur. With aggressive amputations, his already tenuous balance would be even more disrupted. At the present time, we are providing conservative care on a monthly basis. He stated his right leg gets in the way when transferring. He underwent a right AKA on 06/12/20 in [place]. Wound culture was done on 04/22/20. It showed Morganella morganii, Pseudomonas aeroginosa, Streptococcus group F, and Bacteroides fragilis. He has a lot of antibiotic allergies. His only real option is IV antibiotics. Dr. Chester also saw him at the Wound Center and felt the wounds were colonized and held off on antibiotics at this time. If his clinical situation were to change, then would re-evaluate him for IV antibiotics at that time. Wound culture from 11/01/20 was positive for MRSA, E. coli, Proteus Mirabilis. He was treated with Augmentin and doxycycline. He had a cystectomy and a partial prostatectomy by Dr. Lala at [facility] on 08/04/22. He states he is feeling better than he was before having his bladder removed. Today he denies any fever, chills or nausea and vomiting. Progress of Wound: Left ischial ulcer cluster is stable. It continues to have crevices with depth/tunneling. There are patches of dryness and thickened scar tissue around the edges of the ulcer. Steffi wound is stable. Right ischial is stable with thickened scarring surrounding the ulcer. Base of ulcer is pink. Objective Data Objective Data Vital Signs: Vital Signs Temp Pulse Resp BP 97.6 F L 100 20 H 124/72 H 03/27/24 13:10 03/27/24 13:10 03/27/24 13:10 03/27/24 13:10 Body Mass Index (BMI) 19.8 Charges/Coding Procedures Integumentary 111xxx-113xx: 62095 Manisha musc/fascia 20 sq cm/< Add On Codes: 80080 Manisha musc/fascia add-on Debridement Note Debridement Note Wound debrided: ischial ulcer cluster Laterality: Left Wound Grade/Stage: Stage IV Type of Debridement: Excisional debridement Anesthesia Used: 4% Lidocaine Solution Depth: Down to and including healthy tissue, in the subcutaneous layer and to muscle Percentage of wound debrided: 100 Instrument Used: 5mm curette Tissue Removed: Non viable tissue and slough into the muscle Severity: Fat Layer Exposed Amount of bleeding with debridement: Mild Bleeding Controlled with: Pressure and Compression and gauze Patient tolerated procedure: Patient tolerated procedure well Post-Debridement Measurements and Additional Note: Post-Debridement Measurements/Treatment NIKA - Nurse 1 - General Ulcer Assessment Start: 03/27/24 13:10 Freq: Status: Active Protocol: WILLIAMS Activity Type Activity Date Activity User E-sign Co-sign Detail Recorded Client Recorded Date Recorded By Document 03/27/24 13:10 DL [id number] 03/27/24 13:15 DL 03/27/24 13:10 NIKA - Today's Visit Information Type of service Follow-up Visit (Physician/CARTON REPAIRER ) Arrival Mode Wheelchair Transfer Assistance Manual Transfer Assist (Other) x1 Patient Identification Verified (Name & Yes ) Patient Requires Transmission-Based No Precautions Height and Weight Body Mass Index (BMI) 19.8 BMI Classification Normal Vital Signs Temperature (97.8 F-99.1 F) 97.6 F L Temperature Source Temporal Pulse Rate (60-100) 100 Pulse Location Monitor Respiratory Rate (12-18) 20 H Respiratory rate source Observation Blood Pressure (90/60-120/80) 124/72 H Blood Pressure Mean (mm Hg) 89 Source Monitor History Since Last Visit- (Skip if this is Patient's initial visit) Have you changed medications since your No last visit? Any new allergies or adverse reactions No Had a fall/change in ADL's that may No increase risk of falls Signs or symptoms of abuse and/or No neglect since last visit Have you been in the hospital since your No last visit? Has dressing in place as prescribed Yes Has compression in place as prescribed N/A Has offloadiing in place as prescribed Yes Experienced any changes in pain level or No management Pain Scale: 0-10 Numeric Is Patient Pain Free? Yes WC - Nurse 1 - General Ulcer Measurement Start: 03/27/24 13:10 Freq: Status: Active Protocol: Activity Type Activity Date Activity User E-sign Co-sign Detail Recorded Client Recorded Date Recorded By Document 03/27/24 13:10 DL [email or web address] 03/27/24 13:15 DL 03/27/24 13:10 Wound Center Nurse 1 #8 L Ischium cluster -Current Size (cm) - Length 5 -Current Size (cm) - Width 4 -Current Size (cm) - Depth 0.1 -Total Square Cm 20 -Exudate Amt Medium -Wound Margin Distinct, Outline Attached -Granulation Amt Medium (34-66%) -Granulation Quality [place] -Necrosis Amt Small (1-33%) -Necrotic Tissue Type Adherent Slough -Structure Exposed N/A -Texture (Steffi-wound Skin Appearance) Scarring -Moisture (Steffi-wound Skin Appearance) No Abnormality -Color (Steffi-wound Skin Appearance) No Abnormality -Temperature (Steffi-wound Skin No Abnormality Appearance) (Pt Warm) -Ulcer Cleansing Soap and Water -Foul Odor after Cleansing No #7 R Ischium cluster -Current Size (cm) - Length 1 -Current Size (cm) - Width 0.2 -Current Size (cm) - Depth 0.1 -Total Square Cm 0.2 -Exudate Amt Medium -Exudate Type Serosanguineous -Wound Margin Thickened & Rolled Under -Granulation Amt Large (67-100%) -Granulation Quality Red -Necrotic Tissue Type Adherent Slough -Structure Exposed N/A -Texture (Steffi-wound Skin Appearance) Scarring -Moisture (Steffi-wound Skin Appearance) No Abnormality -Color (Steffi-wound Skin Appearance) No Abnormality -Temperature (Steffi-wound Skin No Abnormality Appearance) (Pt Warm) -Tenderness on Palpation (Steffi-wound No Skin Appearance) -Ulcer Cleansing Soap and Water -Foul Odor after Cleansing No WC - Nurse 2 - General Ulcer CM Notes Start: 03/27/24 13:10 Freq: Status: Active Protocol: Activity Type Activity Date Activity User E-sign Co-sign Detail Recorded Client Recorded Date Recorded By Document 03/27/24 13:31 [id number] 03/27/24 13:37 DEBORAH 03/27/24 13:31 Wound Center Nurse 2 #8 L Ischium cluster -Time 13:32 -Correct Patient Yes -Correct Side, Site, Position Yes -Correct Procedure Yes -Procedure Performed Yes -Type of Procedure Debridement -Clinical Debridement Muscle / Fascia -Tissue Removed Muscle,Fascia -Post Debridement (cm) - Length 7.5 -Post Debridement (cm) - Width 2.5 -Post Debridement (cm) - Depth 1.0 -Total Square (Post) (cm) 18.75 -Area of Debridement (cm) - Length 7.5 -Area of Debridement (cm) - Width 2.5 -Total Square (Area) (cm) 18.75 -Tunneling Yes -Tunneling Position (O'clock) 6 -Tunneling Distance (cm) 0.9 -Undermining/Tunneling No -Circular Undermining No -Wound/Ulcer Outcome Not Healed -Ulcer Cleansing Rinsed/ Irrigated with Saline -Foul Odor after Cleansing No -Bioengineered Tissue No -Bleeding Controlled with Pressure -Treatment Response Procedure Tolerated Well -Offloading No -Pressure Reduction Wheelchair cushion -Debridement - Muscle / Fascia, 1st No 20sq cm #7 R Ischium cluster -Time 13:32 -Correct Patient Yes -Correct Side, Site, Position Yes -Correct Procedure Yes -Procedure Performed Yes -Type of Procedure Debridement -Clinical Debridement Muscle / Fascia -Tissue Removed Muscle,Fascia -Post Debridement (cm) - Length 4.5 -Post Debridement (cm) - Width 0.8 -Post Debridement (cm) - Depth 0.4 -Total Square (Post) (cm) 3.60 -Area of Debridement (cm) - Length 4.5 -Area of Debridement (cm) - Width 0.8 -Total Square (Area) (cm) 3.60 -Tunneling No -Undermining/Tunneling No -Circular Undermining No -Wound/Ulcer Outcome Not Healed -Ulcer Cleansing Rinsed/ Irrigated with Saline -Foul Odor after Cleansing No -Bioengineered Tissue No -Bleeding Controlled with Pressure -Treatment Response Procedure Tolerated Well -Offloading No -Pressure Reduction Wheelchair cushion -Debridement - Muscle / Fascia, 1st Yes 20sq cm -Debridement, Muscle/Fascia, ea addt'l 1 20sq cm or part thereof Pain Scale: 0-10 Numeric Is Patient Pain Free? Yes Additional Wound Wound debrided: perianal/ischial ulcer Laterality: Right Wound Grade/Stage: Stage IV Type of Debridement: Excisional debridement Anesthesia Used: 4% Lidocaine Solution Depth: Down to and including healthy tissue, in the subcutaneous layer and to muscle Percentage of wound debrided: 100 Instrument Used: 3mm curette Tissue Removed: Non viable tissue and slough into the muscle. Severity: Fat Layer Exposed Amount of bleeding with debridement: Mild Bleeding Controlled with: Pressure and Compression and gauze Patient tolerated procedure: Patient tolerated procedure well Assessment/Plan Assessment/Plan (1) Pressure sore of left ischium, stage 4: CODE(S): L89.324 - Pressure ulcer of left buttock, stage 4 (2) Right ischial pressure sore, stage 4: CODE(S): L89.314 - Pressure ulcer of right buttock, stage 4 (3) Perineal ulcer: CODE(S): L98.499 - Non-pressure chronic ulcer of skin of other sites with unspecified severity QUALIFIERS: Non-pressure ulcer stage: unspecified non-pressure ulcer stage Qualified Code(s): L98.499 - Non-pressure chronic ulcer of skin of other sites with unspecified severity (4) Chronic osteomyelitis, pelvis: CODE(S): M86.659 - Other chronic osteomyelitis, unspecified thigh (5) Paraplegia at T4 level: CODE(S): G82.20 - Paraplegia, unspecified (6) History of tobacco use: CODE(S): Z87.891 - Personal history of nicotine dependence (7) Severe protein-calorie malnutrition: CODE(S): E43 - Unspecified severe protein-calorie malnutrition PLAN: Plan Patient was evaluated at the wound healing center today. Wound care - Moistened Promogram covered adaptic and topped with gauze/ABD daily to both the left ischial ulcer and the right ischial/steffi anal ulcer. Wash both ulcers with soap and water at the time of the dressing changes. Encourage nutritional supplementation with protein to help the healing process. Left ischial wound culture obtained 12/28/22 which was positive MRSA, Staphylococcus haemolyticus, Corynebacterium striatum, Proteus mirabilis, Streptococcus group F. He was treated with Augmentin and Doxycycline. He was evaluated by a plastic surgeon at [facility] in April 2023. He states he needs his GI issues improved before he has any surgeries. Pernell states that he has too much difficulty with transportation to go to [place] for surgery. Follow up four weeks. Call or come in sooner if develop any concerns.
== END 2024-04-09 23:59 | disposition home or self-care (01) ==
LOC: WC 12:50
PROVIDERS: PCP Internal Medicine; Referring Provider Internal Medicine; Visit Provider Nurse Practitioner Family
DX: L89.314 Pressure ulcer of right buttock, stage 4 (principal); L89.324 Pressure ulcer of left buttock, stage 4; G82.20 Paraplegia, unspecified; L98.499 Non-pressure chronic ulcer of skin of other sites with unspecified severity; M86.68 Other chronic osteomyelitis, other site; Z79.899 Other long term (current) drug therapy; Z87.891 Personal history of nicotine dependence
CPT/HCPCS: 11043; 11046

== ENCOUNTER 2024-04-04 12:26 | Day surgery (SDC) | payer MEDICARE, MEDICAID, SELFPAY ==
[2024-04-04 13:11] VITALS: BP 109/78; PULSE 111; RESP 16; TEMP 36.6; O2SAT 97; BMI 13.9
[2024-04-04] MEDS: Lactated Ringers 1,000 ML 15 ML IV (13:15)
--- NOTE | 2024-04-04 13:27 | PRE.ANES_ITS ---
ASA Classification* ASA Classification ASA Classification: 3 Assessment & Plan Anesthesia* Anesthesia Assessment Anesthesia Assessment: Discussed sedation and/or anesthesia options, risks, benefits, and alternatives with patient/parents/legal guardian/POA. Questions invited. The patient/parents/legal guardian/POA seems to understand and agrees to proceed with anesthesia plan. Reviewed the physical assessment, medical history, allergy history and patient home medications list prior to surgery/procedure/anesthetic and documented any changes. Performed airway and anesthesia risk assessments. Procedural Plan Procedural Plan:: Proceed w/ Anesthesia plan Anesthesia Type Anesthesia Type: MAC History Source History Obtained from:: Patient and Chart Anesthesia Focused Assessment* Temperature: 97.9 F Pulse Rate: 111 Blood Pressure: 109/78 Respiratory Rate: 16 Pulse Ox: 97 Oxygen Delivery Method: Room Air Airway Assessment Mouth opens: >3 cm Mallampati Score: III Teeth Condition: Intact Neck Range of motion (ROM): Full ROM Pertinent Findings EKG Pertinent Findings:: June 08, 2020 sinus tachycardia at 143. Poor R wave progression. right intraventricular conduction delay ECHO Pertinent Findings:: October 28, 2020 ejection fraction 60%. Pulmonary artery systolic pressure is 30 mmHg. Consults Pertinent Findings:: October 18, 2020 Dr. Hull tachycardia of unknown origin check an echo. Seen above in October 28. Patient is okay for EGD Focused Labs Anesthesia Preop lab: CBC WBC 18.9 K/mm3 (4.4-11.0) H 11/29/23 13:41 RBC 4.33 M/mm3 (4.6-6.2) L 11/29/23 13:41 Hgb 12.7 g/dL (13.0-16.5) L 11/29/23 13:41 Hct 41.0 % (40-54) 11/29/23 13:41 Plt Count 291 K/mm3 (150-450) 11/29/23 13:41 CHEMISTRY Potassium 4.1 mmol/L (3.5-5.1) 11/29/23 13:41 Sodium 136 mmol/L (136-145) 11/29/23 13:41 Magnesium 1.6 mg/dL (1.6-2.6) 11/29/23 13:41 Phosphorus 2.9 mg/dL (2.5-4.9) 11/30/22 12:35 BUN 30 mg/dL (7-18) H 11/29/23 13:41 Creatinine 0.77 mg/dL (0.70-1.30) 11/29/23 13:41 Glucose 114 mg/dL (74-106) H 11/29/23 13:41 POC Glucose 156 mg/dL (70-110) H 11/07/19 05:49 TSH 1.48 uIU/mL (0.358-3.74) 02/22/20 12:09 COAG PT 14.2 SECONDS (11.7-14.9) 11/30/22 12:35 Pre-Assessment Diagnosis/Proposed Procedure Planned Operative Procedure(s): EGD Anesthesia History 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 When Was Last Pacemaker Check QUESTION #4 FULL TEXT: You/Your Family Experience fever (hyperthermia) with Anesthesia Last Oral Intake Last Oral intake: Last Oral Intake NPO since 00:00 04/04/24 13:11 Meds taken in AM with sips of water? Meds patient instructed to take am of surgery PONV PONV - wireless construction manager: PONV - wireless construction manager Female No 03/29/24 15:50 HX of Motion Sickness No 03/29/24 15:50 HX of N/V After Surgery No 03/29/24 15:50 Non-Smoker Yes 03/29/24 15:50 Duration of Surgery greater No 03/29/24 15:50 than 60 minutes Number of Risk Factors 1 03/29/24 15:50 PONV Score Low Risk 03/29/24 15:50 Height & Weight Height & Weight: Anesthesia: Height & Weight Height 5 ft 11 in 04/04/24 13:11 Weight: 45.359 kg 04/04/24 13:11 Body Mass Index (BMI) 13.9 04/04/24 13:11 Respiratory Assessment Respiratory Assessment - wireless construction manager: Respiratory Tract Infection Hx - wireless construction manager Hx Respiratory Tract Infection No 03/29/24 15:50 STOP Sleep Apnea STOP Sleep Apnea - wireless construction manager: STOP Sleep Apnea - wireless construction manager Hx Hypertension No 03/29/24 15:50 Hx Sleep Apnea No 03/29/24 15:50 CPAP No 11/30/22 17:32 BIPAP No 11/30/22 17:32 Do you snore loudly (louder No 03/29/24 15:50 than talking or can be heard Do you often feel tired/ No 03/29/24 15:50 fatigued/ sleepy during daytime? Has anyone observed you stop No 03/29/24 15:50 breathing during sleep? STOP Results Negative 03/29/24 15:50 QUESTION #5 FULL TEXT : Do you snore loudly (louder than talking or can be heard through closed doors)? Tobacco Use History Tobacco Use History - wireless construction manager: Tobacco Use History - wireless construction manager Tobacco Use Smoking Status Former smoker 03/29/24 15:50 Hx Tobacco Use No 03/29/24 15:50 Years Smoking Packs Smoked per Day Smoking Cessation Date was Yes - quit smoking within 15 03/29/24 15:50 within the last 15 years years Hx Smoking Cessation Date 10/11/15 03/29/24 15:50 Hx Smoking Cessation No 03/29/24 15:50 Counseling Hematologic Medial History Hematologic Hx - wireless construction manager: Hematologic Medical Hx - engine mechanic Hx of Blood Transfusion Yes 03/29/24 15:50 Hx of Transfusion in last 3 No 03/29/24 15:50 Months Date of Last Transfusion (if within last 3 months) Ever experience any problems No 03/29/24 15:50 with transfusion(s)? Specify any problems Hx of Preganancy in last 3 N/A 03/29/24 15:50 Months Nurse Filling Out Transfusion NBUCHER 03/29/24 15:50 & Questions: Date: 03/29/24 03/29/24 15:50 Time: 15:51 03/29/24 15:50 Patient unable to answer at this time (ie. confused, unrespo /Reproduction History /Reproductive History - wireless construction manager: /Reproductive Hx- wireless construction manager Hx Now No 03/29/24 15:50 Gestational Age (in weeks): EDC: Hx Hx Para Hx Section SAB No 03/29/24 15:50 Active Medications Active Medications: Current Medications Generic Name Dose Route Start Last Admin Trade Name Muna PRN Reason Stop Dose Admin Lactated Ringer's 1,000 mls @ 15 mls/hr 04/04/24 13:00 04/04/24 13:15 IV 15 mls/hr .Q48H ROLY Administration PFSH Medical History Pressure ulcer Injury of back Heartburn Microcytic anemia Anemia, unspecified Solitary rectal ulcer syndrome Alcohol use Uses wheelchair Former smoker Phantom pain Cardiology follow-up encounter History of echocardiogram Crohn's disease Wears glasses Marijuana use Anxiety Open wound Gastric reflux Weight loss Rectal abnormality Incomplete right bundle branch block Left ischial pressure sore Nonrheumatic mitral (valve) insufficiency Nonrheumatic mitral (valve) prolapse Above-knee amputation of right lower extremity Prostatic hemorrhage Bleeding from left hip wound Chronic osteomyelitis, pelvis MRSA (methicillin resistant Staphylococcus aureus) infection Difficulty transferring location Bacteremia Kidney calculi Hematuria Severe protein-calorie malnutrition History of tobacco use Paraplegia at T4 level Scoliosis Stomach ulcer Heart murmur Recurrent infections History of blood transfusion History of blood clots History of UTI History of fracture History of back problems Right ischial pressure sore, stage 4 Pseudomonas aeruginosa infection Proteus infection Urinary tract infection Perineal ulcer History of osteomyelitis History of MRSA infection left ischial pressure sore, stage IV Home Medications ?Medication ?Instructions ?Recorded ?Last Taken ?Type NK 03/29/24 Unknown History Allergy/AdvReac Type Severity Reaction Status Date / Time cephalexin monohydrate (From Allergy Itching Verified 03/29/24 15:49 Keflex) latex Allergy ONLY IF Verified 03/29/24 15:49 INDWELLING CATHETER sulfamethoxazole Allergy Hives Verified 03/29/24 15:49 Family History Unknown Breast cancer Surgical History Hx of colonoscopy Hx of above knee amputation History of left below knee amputation History of left below knee amputation H/O ureteroileostomy Social History household members: significant other Smoking Status: Former smoker alcohol intake: current alcohol intake frequency: 3 or more drinks per day Alcohol type: beer substance use type: marijuana Review of Systems (Anesthesia) ROS Narrative System reviewed and no additional complaints, except as documented.
--- NOTE | 2024-04-04 13:27 | HP.PCM_ITS ---
History and Physical Date of Admission: 04/04/24 RICCARDO NERI, is a 58 M who presents to the office today for follow up. 08.07.21 where he was evaluated for a rectal abnormality, weight loss, mucous from the rectum and digital stimulation to promote BM. Previously diagnosed with Crohn?s Disease. 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 ? PMH includes bilateral AKA amputations; LLE [address] abd/pel performed 08.19.21 findings in tip with spina bifida. EGD and colonoscopy performed 09.24.21. EGD found LA Grade A reflux esophagitis, gastritis; hiatal hernia. Duodenitis. Biopsy confirmed gastritis and found esophageal inflammation. H. Pylori negative. Treated with PPI BID and Carafate BID. Colonoscopy found Mucosal ulceration. Congested mucosa in rectum and distal ileum. Biopsy - Colonic ulcer at hepatic flexure, Fibrinopurulent material suggestive of ulcer. Rectum, Ulceration with fibrinopurulent material and hyperplastic epithelial changes. Diagnosis of Crohn?s disease received at this time.? ? Biochemical workup celiac, ANCA, GAME, PEP, globulin WNL. MK albumin L 2.7, [id number] H 0.5.? Stool testing lactoferrin and calprotectin WNL? ? Biochemical workup CRP H6.30, ESR H35, IBD profile not suggestive of IBD.? ? Plan last visit 07.17.22:? Crohn?s disease ? IBD profile? Solitary rectal ulcer syndrome ? start mesalamine enemas and possible hydrocortisone supositories ? ? Pt feels about the same as he did at the last visit. Had to cancel capsule endoscopy that was scheduled in July as he was having bladder surgery. Still continues to have some abdominal pain, bloating and cramping. Says his stomach spasms here and there. It feels very tight sometimes. No change in bowel habits. OV 03.27.24 pt reports that he has been having stomach spasms several times a day; reports he has more when he is sitting in his chair rather than when he is laying down. ROS Const Constitutional: Positive for fatigue; No fever(s) or weight change ENT ENT: No difficulty swallowing Gastro GI: Positive for abdominal pain, bloating, heartburn and excessive flatus; No belching, change in bowel habits, change in stool character, coffee ground emesis, constipation, cramping, diarrhea, difficulty swallowing, feeling full early, incontinent of stools, Vomiting blood/hematemesis, Blood in stool, loose stools, Black,tarry stools, nausea/dyspepsia, pain with swallowing, vomiting or other Musc Musculoskeletal: Positive for back pain, muscle cramps, muscle weakness and restless legs; No joint pain Skin Skin: No yellowing of the eye or itchy eyes Neuro Neurology: Positive for restless legs and paralysis Psych Psychiatric: Positive for anxiety and No depression Endo Endocrine: Positive for fatigue; No weight change Aller/Imm Allergy/Immunologic: No itchy eyes Layton/Lymp Hematologic/Lymphatic: No easy bleeding or easy bruising Exam Const General: cooperative, comfortable and no acute distress Nutritional Appearance: cachectic Orientation: alert, awake and oriented x3 HENMT Head: normal to inspection and no palpable skull fracture Ears: hearing grossly normal bilaterally and external ears normal Nose: external nose normal and nares normal Face and sinus: normal facial exam Mouth: oral mucosae normal, lip normal and tongue normal Eyes General: appearance normal, both eyes and all related structures Visual Pinon: normal visual pinon by confrontation Alignment and Position: alignment normal Periorbital: periorbital findings normal Eyelids: eyelids normal Conjunctivae: conjunctivae normal Sclera: sclerae normal Cornea: corneas normal Pupils: PERRL EOM: EOM intact bilaterally Neck Neck: normal visual inspection and full ROM Chest Chest palpation & inspection: normal inspection of the chest Resp Effort & Inspection: normal respiratory effort, able to speak in complete sente nces and symmetric chest movement Auscultation: Bilateral: Clear to Auscultation Cardio Rate: regular rate Rhythm: regular rhythm Heart Sounds: S1 normal and S2 normal GI Palpation: soft, not firm, no guarding and nontender Other: scoliosis throughout anterior and posterior trunk exam urostomy to LLQ with stoma intact, pink and moist urostomy draining yellow sediment urine General: No CVA tenderness Musc Thoracic/Lumbar Spine: kyphosis and scoliosis Skin General: no rashes or lesions noted Neuro General: patient alert, patient awake, patient oriented x3, gait abnormal and CN's II-XI intact bilaterally Cognition: normal cognition Speech: speech normal Gait: gait assisted Method: wheelchair bound Psych Appearance: grossly normal Mental Status: mental status grossly normal Mood: congruent mood Affect: normal affect Speech and Movement: speech and movement normal Attitude: cooperative Thought Process: normal Thought Content: normal Judgment: judgment good Assessment and Plan Assessment and Plan (1) Solitary rectal ulcer syndrome: Status: Inactive Plan: Clinically and endoscopically he has a solitary rectal ulcer syndrome.? He still having mucus and needs to manually disimpact.? We will give him mesalamine enemas and possible hydrocortisone suppositories to help relax his rectum and healed ulceration.? We will know more after we undergo genetic testing to see if inflammatory bowel disease is contributing to solitary rectal ulcer syndrome.? We will check an ESR, CRP and fecal lactoferrin along with fecal calprotectin. (2) Crohn's disease: Status: Chronic Plan: He will undergo IBD SGI testing to see if he has Crohn's disease.? I was hoping that it would will tell us the severity of the disease and how aggressive we may need to be with treatment. His IBD SGI was normal. He also underwent a capsule endoscopy did not show any specific signs of inflammatory bowel disease. He is having abdominal pain this seems to be more toward his stomach. However it could be ulcerations of the small bowel. He will undergo an upper endoscopy to evaluate his upper GI tract. He he may need a repeat capsule endoscopy to see if there is any signs of inflammatory bowel disease in the small bowel as his CT scan abdomen pelvis did not show any acute pathology.. I have examined the patient and the H&P has been reviewed. There are no clinical changes since date of exam.
[2024-04-04 13:36] VITALS: BP 109/78; PULSE 111; RESP 16; TEMP 36.6; O2SAT 97
--- NOTE | 2024-04-04 13:45 | IMM_PTH ---
PATIENT: RICCARDO NERI LOC: EN U#:[id number] AGE/SX: 58/M ROOM: RE04/04/[address]: Dr. Luis Enrique Sanabria DO : 1965 BED: DIS: 04/04/2024 SPEC #: [id number] RECD: 04/05/24 08:29 STATUS: EMY REShawna #: [id number] GERMAIN: 04/04/24 13:[address]: Luis Enrique Sanabria DEPT: IMMUNOHISTOCHEMISTRY RECD BY: Mike Fisher ENTERED: 04/05/24 08:29 SP TYPE: IMMUNO OTHR DR: Dr. Rayo Jose MD Tissues: A - Gastric mucous membrane Procedures: H Pylori (initial) PHYSICIAN & INSTITUTION [place] [id number] SPECIMEN INFORMATION: Tissue Source: A- Antrum Clinical Info: Crohn's disease Specimen Number: [id number] CPT code: 11251 METHODOLOGY: Deparaffinized sections of prefer/formalin-fixed tissue or PAP/DQ stained slides are incubated with monoclonal/polyclonal antibodies/oligonucleotide probes. Localization is made via biotin free immunoperoxidase method. Appropriate controls are performed and reacted as expected. Results on target cell population are indicated in the following table: RESULTS: ANTIBODY / CLONE RESULT Block A H Pylori (polyclonal) negative These tests were developed and their performance characteristics determined by [facility]. They may not have been cleared or approved by the U.S. Food and Drug Administration. The FDA has determined that such clearance or approval is not necessary. The above immunohistochemical/dualISH markers are ordered and reviewed by the Pathologist. INTERPRETATION: A. Antrum, biopsy: Negative for Helicobacter pylori organisms. BREANNA/ 04/06
--- NOTE | 2024-04-04 13:45 | EGD_PTH ---
PATIENT: RICCARDO NERI LOC: EN U#:[id number] AGE/SX: 58/M ROOM: RE04/04/[address]: Dr. Luis Enrique Sanabria DO : 1965 BED: DIS: 04/04/2024 SPEC #: [id number] RECD: 04/04/24 17:59 STATUS: EMY REShawna #: [id number] GERMAIN: 04/04/24 13:[address]: Luis Enrique Sanabria DEPT: SURGICAL PATHOLOGY RECD BY: Oumou Castillo ENTERED: 04/05/24 10:27 SP TYPE: EGD BIOPSY MARCIE DR: Dr. Rayo Jose MD Tissues: A - Gastric mucous membrane B - Duodenum, NOS Procedures: Surgery Specimen Level IV HEADER OPERATION: EGD with biopsy PRE-OP DIAGNOSIS: Crohn's disease TISSUE SUBMITTED: A- Antrum, B- Duodenal biopsy MICROSCOPIC DIAGNOSIS A. Antrum, biopsy: Mild gastritis. See microscopic description and comment. B. Duodenum, biopsy: Fragments of duodenal mucosa, no pathologic diagnosis. / 04/06/2024 COMMENT A. The results of immunohistochemistry for Helicobacter pylori will be reported separately ([id number]). MICROSCOPIC DESCRIPTION Slides are reviewed. A. The specimen shows fragments of gastric mucosa with chronic inflammatory cell infiltrates in the lamina propria consisting of lymphocytes and plasma cells, consistent with mild chronic gastritis. GROSS DESCRIPTION A. Received in fixative is one container labeled with the patient's name and designated Antrum biopsy. The specimen consists of multiple irregular fragments of light infante soft tissue that in aggregate measure 1.5 x 0.3 x 0.1 cm. The specimen is totally submitted in one cassette. B. Received in fixative is one container labeled with the patient's name and designated Duodenum biopsy. The specimen consists of two irregular fragments of light infante soft tissue that in aggregate measure 0.6 x 0.4 x 0.1 cm. The specimen is totally submitted in one cassette. [facility] 04/05/2024 TC:3 CPT:85651r7
[2024-04-04 14:20] VITALS: BP 109/78; BP 117/60; PULSE 55; RESP 18; TEMP 36.4; O2SAT 99
--- NOTE | 2024-04-04 14:23 | OP.EGD_ITS ---
Patient Name: Pernell Heath Procedure Date: 04/04/2024 1:23 PM Date of : 1965 Age: 58 Procedure: Upper GI endoscopy Indications: Epigastric abdominal pain Providers: Luis Enrique Sanabria DO Referring MD: Rayo Jose MD Medicines: Monitored Anesthesia Care Patient Profile: This is a 58 year old male. Refer to note in patient chart for documentation of history and physical. Patient has symptoms of chronic epigastric abdominal pain. Complications: No immediate complications. Procedure: Pre-Anesthesia Assessment: - Prior to the procedure, a History and Physical was performed, and patient medications and allergies were reviewed. The patient is competent. The risks and benefits of the procedure and the sedation options and risks were discussed with the patient. All questions were answered and informed consent was obtained. Patient identification and proposed procedure were verified by the physician in the pre-procedure area. Mental Status Examination: alert and oriented. Airway Examination: normal oropharyngeal airway and neck mobility. Respiratory Examination: clear to auscultation. CV Examination: normal. Prophylactic Antibiotics: The patient does not require prophylactic antibiotics. Prior Anticoagulants: The patient has taken no anticoagulant or antiplatelet agents. ASA Grade Assessment: III - A patient with severe systemic disease. After reviewing the risks and benefits, the patient was deemed in satisfactory condition to undergo the procedure. The anesthesia plan was to use monitored anesthesia care (MAC). Immediately prior to administration of medications, the patient was re-assessed for adequacy to receive sedatives. The heart rate, respiratory rate, oxygen saturations, blood pressure, adequacy of pulmonary ventilation, and response to care were monitored throughout the procedure. The physical status of the patient was re-assessed after the procedure. After obtaining informed consent, the endoscope was passed under direct vision. Throughout the procedure, the patient's blood pressure, pulse, and oxygen saturations were monitored continuously. The gastroscope was introduced through the mouth, and advanced to the second part of duodenum. The upper GI endoscopy was accomplished without difficulty. The patient tolerated the procedure well. Scope In: 2:09:39 PM Scope Out: 2:15:42 PM Total Procedure Duration Time 0 hours 6 minutes 3 seconds Findings: The examined esophagus was normal. Diffuse severe inflammation characterized by congestion (edema), erosions, friability and linear erosions was found in the entire examined stomach. Biopsies were taken with a cold forceps for histology. Verification of patient identification for the specimen was done. Estimated blood loss was minimal. Biopsies were taken with a cold forceps for Helicobacter pylori testing. Verification of patient identification for the specimen was done. Estimated blood loss was minimal. Segmental moderate inflammation characterized by congestion (edema), erosions, erythema and friability was found in the duodenal bulb. Biopsies were taken with a cold forceps for histology. Verification of patient identification for the specimen was done. Estimated blood loss was minimal. Impression: - Normal esophagus. - Chronic bile gastritis. Biopsied. - Chronic duodenitis. Biopsied. Recommendation: - Discharge patient to home. - Resume previous diet. - Continue present medications. - Await pathology results. - Repeat upper endoscopy in 4 months for surveillance. - Use Prilosec (omeprazole) 40 mg PO BID for 12 weeks. - Use sucralfate tablets 1 gram PO QID for 2 weeks. Procedure Code(s): --- Professional --- 92284, Esophagogastroduodenoscopy, flexible, transoral; with biopsy, single or multiple CPT copyright 2021 [employer]. All rights reserved. The codes documented in this report are preliminary and upon remote medical coder review may be revised to meet current compliance requirements. Luis Enrique Sanabria DO 04/04/2024 2:23:20 PM This report has been signed electronically. Number of Addenda: 0 Note Initiated On: 04/04/2024 1:23 PM
--- NOTE | 2024-04-04 14:24 | PCM.POST.ANE ---
Anesthesia: Postop Eval I Current Vital Signs Temperature: 97.6 F Pulse Rate: 65 Blood Pressure: 110/62 Respiratory Rate: 18 Pulse Ox: 96 Oxygen Delivery Method: Room Air Assessment Airway patent: Yes Spontaneous unlabored respirations: Yes Mental status: Awake and Calm nausea: No Vomiting: No Anesthesia Complication: No Fluid Hydration Crystalloid volume administer (ml): 400 Total IV fluid infused: 400 Progress Note Anesthesia document: Postop Eval 1 completed: Yes
--- NOTE | 2024-04-04 14:24 | OP.CCLET_ITS ---
04/04/2024 Rayo Jose MD [address] [place] [address] [place] [address] Re : Upper GI endoscopy procedure for Pernell Heath Dear Dr. Jose This procedure was performed on Thursday, April 04, 2024. My impressions and recommendations are as follows: Impressions : - Normal esophagus. - Chronic bile gastritis. Biopsied. - Chronic duodenitis. Biopsied. Recommendations : - Discharge patient to home. - Resume previous diet. - Continue present medications. - Await pathology results. - Repeat upper endoscopy in 4 months for surveillance. - Use Prilosec (omeprazole) 40 mg PO BID for 12 weeks. - Use sucralfate tablets 1 gram PO QID for 2 weeks. My findings are described in the full procedure note, which is enclosed. If I can be of further assistance, please feel free to contact me at . Sincerely, Luis Enrique Sanabria, 04/04/2024 2:23:20 PM This report has been signed electronically.
[2024-04-04 14:25] VITALS: BP 109/78; BP 110/62; PULSE 65; RESP 18; O2SAT 96
[2024-04-04 14:30] VITALS: BP 109/78; BP 110/62; BP 113/61; PULSE 64; PULSE 65; RESP 18; TEMP 36.4; TEMP 36.6; O2SAT 96; O2SAT 97
[2024-04-04 15:02] VITALS: BP 109/78
--- NOTE | 2024-04-04 17:03 | PCM.POSTANE2 ---
Anesthesia Postop Eval I Sum Postop Eval Completion status Anesthesia document: Postop Eval 1 completed: Yes Anesthesia Postop Eval I Summary Anesthesia Postop Eval I Summary: Anesthesia Postop Eval I: Assessment Summary Airway patent Yes 04/04/24 14:30 [email or web address] Spontaneous unlabored Yes 04/04/24 14:30 [email or web address] respirations Mental status Awake,Calm 04/04/24 14:30 [email or web address] nausea No 04/04/24 14:30 [email or web address] Vomiting No 04/04/24 14:30 [email or web address] Anesthesia Postop Eval I: Fluid Summary Crystalloid volume administer 400 04/04/24 14:30 [email or web address] (ml) Colloids volume administered ( ml) Blood Product volume administered (ml) Total IV fluid infused 400 04/04/24 14:30 [email or web address] Anesthesia Postop Eval I: Summary Notes Anesthesia Complication No 04/04/24 14:30 [email or web address] Anesthesia Complication Comment: Post-operative progress note Anesthesia: Postop Eval II Evaluation Mental status: Awake and Calm Pain Level: 0 nausea: No Vomiting: No Complications Anesthesia Complication: No
== END 2024-04-04 15:10 | disposition home or self-care (01) ==
LOC: EN 12:28 → AC 12:29
PROVIDERS: PCP Internal Medicine; Referring Provider Internal Medicine; Visit Provider Internal Medicine Gastroenterology
PROC: 0DJ08ZZ Inspection of Upper Intestinal Tract, Via Natural or Artificial Opening Endoscopic (ICD-10-PCS; CPT 43235; principal; 2024-04-04 13:40)
DX: K62.6 Ulcer of anus and rectum (principal); K50.90 Crohn's disease, unspecified, without complications; K29.50 Unspecified chronic gastritis without bleeding; K29.80 Duodenitis without bleeding; Z87.891 Personal history of nicotine dependence
CPT/HCPCS: 43239; 88305; 88342; J7120; J2405

== ENCOUNTER 2024-04-26 13:45 | Outpatient (RCR) | payer MEDICARE, MEDICAID, SELFPAY ==
[2024-04-10 00:35] VITALS: BP 139/71; PULSE 83; RESP 16; TEMP 36.8; BMI 19.8
[2024-04-26 14:36] VITALS: BP 143/76; PULSE 84; TEMP 36.1; BMI 19.8
--- NOTE | 2024-04-26 16:25 | PN.PCM_ITS ---
History of Present Illness Date of Service: 04/26/24 Chief Complaint: Bilateral ischial pressure sores, Stage IV. History of Wound: Surgery 04/08/20 - 1. Excision bleeding right ischial/perineal pressure sore, Stage IV. 2. Control of prostatic bleeding with electrocautery and Surgicel hemostat. Wound Care - Left ischial and right ischial ulcers are moistened Promogran topped with ABD daily. Wash both ulcers with soap and water at the time of the dressing change. Left ischial ulcer culture 12/28/22 positive for MRSA, Staphylococcus haemolyticus, Corynebacterium striatum, Proteus mirabilus, and Streptococcus group F. He was treated with Augmentin and Doxycycline. Wound culture from 03/02/22 positive for Pseudomonas aeroginosa, Morganella morganii sp sibonii, and Corynebacterium. Due to his allergies and the the sensitivity of the cultures, patient was referred to ID, who placed him on Augmentin and Cipro, which he currently is on and is tolerating. Wound culture from 01/20/21 positive for Proteus mirabilis, Cornybacterium minutissium and Bacteroides fragilis. He was referred to ID for antibiotic management, which he was placed on Cefdinir, Doxycycline and Flagyl for 10 days. Patient has long standing bilateral ischial pressure sores, Stage IV, with the left side extending to the femoral head and the right side extending to the perineal area and the prostate. Surgery would entail quite extensive excision with amputations at a tertiary center. Patient does not want to pursue any heroic surgeries at this time since it is not a guarantee his pressure issues won't recur. With aggressive amputations, his already tenuous balance would be even more disrupted. At the present time, we are providing conservative care on a monthly basis. He stated his right leg gets in the way when transferring. He underwent a right AKA on 06/12/20 in [facility]. Wound culture was done on 04/22/20. It showed Morganella morganii, Pseudomonas aeroginosa, Streptococcus group F, and Bacteroides fragilis. He has a lot of antibiotic allergies. His only real option is IV antibiotics. Dr. Chester also saw him at the Wound Center and felt the wounds were colonized and held off on antibiotics at this time. If his clinical situation were to change, then would re-evaluate him for IV antibiotics at that time. Wound culture from 11/01/20 was positive for MRSA, E. coli, Proteus Mirabilis. He was treated with Augmentin and doxycycline. He had a cystectomy and a partial prostatectomy by Dr. Lala at [facility] on 08/04/22. Today he denies any fever, chills or nausea and vomiting. Progress of Wound: Patient states that he no longer has anyone at home to help him with his dressings. He has been managing on his own. He had asked for home health a couple weeks ago and it was arranged and then he canceled his initial visit. Will need to look into this further. He states that he has been doing the sweating thing that he does when he typically has an infection. He states he has noted the left ischial ulcer with increased drainage and odor. Left ischial ulcer cluster appears stable. It continues to have crevices with depth/tunneling. Steffi wound is stable. No odor noticed at this time. Right ischial is stable with thickened scarring surrounding the ulcer. Base of ulcer is pink. A wound culture was obtained today of both ulcers.? A positive culture may necessitate need for antibiotic therapy. Objective Data Objective Data Vital Signs: Vital Signs Temp Pulse Resp BP 97 F L 84 16 143/76 H 04/26/24 14:36 04/26/24 14:36 04/10/24 00:35 04/26/24 14:36 Body Mass Index (BMI) 19.8 Charges/Coding Procedures Integumentary 111xxx-113xx: 01221 Manisha musc/fascia 20 sq cm/< Add On Codes: 99326 Manisha musc/fascia add-on (x2) Debridement Note Debridement Note Wound debrided: ischial ulcer cluster Laterality: Left Wound Grade/Stage: Stage IV Type of Debridement: Excisional debridement Anesthesia Used: 4% Lidocaine Solution Depth: Down to and including healthy tissue, in the subcutaneous layer and to muscle Percentage of wound debrided: 100 Instrument Used: 5mm curette Tissue Removed: Non viable tissue and slough into the muscle Severity: Fat Layer Exposed Amount of bleeding with debridement: Mild Bleeding Controlled with: Pressure and Compression and gauze Patient tolerated procedure: Patient tolerated procedure well Post-Debridement Measurements and Additional Note: Post-Debridement Measurements/Treatment WC - Nurse 1 - General Ulcer Assessment Start: 04/26/24 14:34 Freq: Status: Active Protocol: NIKA.BONNY Activity Type Activity Date Activity User E-sign Co-sign Detail Recorded Client Recorded Date Recorded By Document 04/26/24 14:36 [id number] 04/26/24 14:49 NE 04/26/24 14:36 - Today's Visit Information Type of service Follow-up Visit (Physician/IC DESIGN MANAGER ) Arrival Mode Ambulatory Accompanied by self Patient Identification Verified (Name & Yes ) Safety Precautions Fall Prevention Height and Weight Body Mass Index (BMI) 19.8 BMI Classification Normal Vital Signs Temperature (97.8 F-99.1 F) 97 F L Temperature Source Temporal Pulse Rate (60-100) 84 Pulse Location Monitor Blood Pressure (90/60-120/80) 143/76 H Blood Pressure Mean (mm Hg) 98 Source Monitor Position Sitting Blood Pressure Location Right Arm History Since Last Visit- (Skip if this is Patient's initial visit) Has dressing in place as prescribed Yes Has compression in place as prescribed Yes Has offloadiing in place as prescribed Yes Experienced any changes in pain level or Yes management Pain Scale: 0-10 Numeric Is Patient Pain Free? Yes - Nurse 1 - General Ulcer Measurement Start: 04/26/24 14:34 Freq: Status: Active Protocol: Activity Type Activity Date Activity User E-sign Co-sign Detail Recorded Client Recorded Date Recorded By Document 04/26/24 14:36 [id number] 04/26/24 14:49 NE 04/26/24 14:36 Wound Center Nurse 1 #8 L Ischium cluster -Current Size (cm) - Length 6.5 -Current Size (cm) - Width 6.5 -Current Size (cm) - Depth 0.7 -Total Square Cm 42.25 -Exudate Amt Medium -Exudate Type Serosanguineous -Wound Margin Thickened & Rolled Under -Granulation Amt Large (67-100%) -Granulation Quality Pale,[place] -Necrosis Amt Small (1-33%) -Necrotic Tissue Type Adherent Slough -Texture (Steffi-wound Skin Appearance) Assessed -Moisture (Steffi-wound Skin Appearance) Assessed -Color (Steffi-wound Skin Appearance) Assessed -Temperature (Steffi-wound Skin No Abnormality Appearance) (Pt Warm) -Tenderness on Palpation (Steffi-wound No Skin Appearance) -Ulcer Cleansing Soap and Water -Foul Odor after Cleansing No -Anesthetic Used 4% Lidocaine Solution #7 R Ischium cluster -Current Size (cm) - Length 1.9 -Current Size (cm) - Width 5.0 -Current Size (cm) - Depth 0.3 -Total Square Cm 9.50 -Exudate Amt Small -Exudate Type Serosanguineous -Wound Margin Thickened -Granulation Amt Large (67-100%) -Granulation Quality Pale,[place] -Necrosis Amt Small (1-33%) -Necrotic Tissue Type Adherent Slough -Texture (Steffi-wound Skin Appearance) Assessed -Moisture (Steffi-wound Skin Appearance) Assessed -Color (Steffi-wound Skin Appearance) Assessed -Temperature (Steffi-wound Skin No Abnormality Appearance) (Pt Warm) -Tenderness on Palpation (Steffi-wound No Skin Appearance) -Ulcer Cleansing Soap and Water -Foul Odor after Cleansing No -Anesthetic Used 4% Lidocaine Solution WC - Nurse 2 - General Ulcer CM Notes Start: 04/26/24 14:34 Freq: Status: Active Protocol: Activity Type Activity Date Activity User E-sign Co-sign Detail Recorded Client Recorded Date Recorded By Document 04/26/24 14:53 [facility] [id number] 04/26/24 15:07 [facility] 04/26/24 14:53 Wound Center Nurse 2 #8 L Ischium cluster -Time 14:55 -Correct Patient Yes -Correct Side, Site, Position Yes -Correct Procedure Yes -Procedure Performed Yes -Type of Procedure Debridement -Clinical Debridement Muscle / Fascia -Tissue Removed Muscle -Post Debridement (cm) - Length 7.8 -Post Debridement (cm) - Width 5.5 -Post Debridement (cm) - Depth 1 -Total Square (Post) (cm) 42.90 -Area of Debridement (cm) - Length 7.8 -Area of Debridement (cm) - Width 5.5 -Total Square (Area) (cm) 42.90 -Tunneling No -Undermining/Tunneling No -Circular Undermining No -Wound/Ulcer Outcome Not Healed -Ulcer Cleansing Rinsed/ Irrigated with Saline -Foul Odor after Cleansing No -Bioengineered Tissue No -Bleeding Controlled with Pressure -Treatment Response Procedure Tolerated Well -Pressure Reduction Wheelchair cushion -Debridement - Muscle / Fascia, 1st No 20sq cm #7 R Ischium cluster -Time 14:55 -Correct Patient Yes -Correct Side, Site, Position Yes -Correct Procedure Yes -Procedure Performed Yes -Type of Procedure Debridement -Clinical Debridement Muscle / Fascia -Tissue Removed Muscle -Post Debridement (cm) - Length 4.7 -Post Debridement (cm) - Width 1 -Post Debridement (cm) - Depth 0.4 -Total Square (Post) (cm) 4.7 -Area of Debridement (cm) - Length 4.7 -Area of Debridement (cm) - Width 1 -Total Square (Area) (cm) 4.7 -Tunneling No -Undermining/Tunneling No -Circular Undermining No -Wound/Ulcer Outcome Not Healed -Ulcer Cleansing Rinsed/ Irrigated with Saline -Foul Odor after Cleansing No -Bioengineered Tissue No -Bleeding Controlled with Pressure -Treatment Response Procedure Tolerated Well -Debridement - Muscle / Fascia, 1st Yes 20sq cm -Debridement, Muscle/Fascia, ea addt'l 2 20sq cm or part thereof -Debridement - Bone, 1st 20sq cm No Pain Scale: 0-10 Numeric Is Patient Pain Free? Yes - Nurse 3 - General Ulcer D/C NN Start: 04/26/24 14:34 Freq: Status: Active Protocol: Activity Type Activity Date Activity User E-sign Co-sign Detail Recorded Client Recorded Date Recorded By Document 04/26/24 15:31 [facility] WOUND 04/26/24 15:36 RB 04/26/24 15:31 Wound Care Center Nurse 3 #8 L Ischium cluster -Ulcer Cleansing Rinsed/ Irrigated with Saline -Primary Dressing Applied NonAdherent Contact Layer, Promogran -Other Dressing ABD -Primary Dressing Covered/Secured with Dry Gauze, Secured with Tape -Promogran 1 #7 R Ischium cluster -Ulcer Cleansing Rinsed/ Irrigated with Saline -Primary Dressing Applied NonAdherent Contact Layer, Promogran -Other Dressing ABD -Primary Dressing Covered/Secured with Dry Gauze, Secured with Tape -Promogran 1 Treatment Response Procedure Tolerated Well Pain Scale: 0-10 Numeric Is Patient Pain Free? Yes - Visit Discharge Discharge Condition Stable Ambulatory Status Wheelchair Transportation Private Auto Medication Reconcilliation completed & No provided to patient/care provider Clinical Summary of Care Provided Yes Additional Wound Wound debrided: perianal/ischial ulcer Laterality: Right Wound Grade/Stage: Stage IV Type of Debridement: Excisional debridement Anesthesia Used: 4% Lidocaine Solution Depth: Down to and including healthy tissue, in the subcutaneous layer and to muscle Percentage of wound debrided: 100 Instrument Used: 5mm curette Tissue Removed: Non viable tissue and slough into the muscle. Severity: Fat Layer Exposed Amount of bleeding with debridement: Mild Bleeding Controlled with: Pressure and Compression and gauze Patient tolerated procedure: Patient tolerated procedure well Assessment/Plan Assessment/Plan (1) Pressure sore of left ischium, stage 4: CODE(S): L89.324 - Pressure ulcer of left buttock, stage 4 (2) Right ischial pressure sore, stage 4: CODE(S): L89.314 - Pressure ulcer of right buttock, stage 4 (3) Perineal ulcer: CODE(S): L98.499 - Non-pressure chronic ulcer of skin of other sites with unspecified severity QUALIFIERS: Non-pressure ulcer stage: unspecified non-pressure ulcer stage Qualified Code(s): L98.499 - Non-pressure chronic ulcer of skin of other sites with unspecified severity (4) Chronic osteomyelitis, pelvis: CODE(S): M86.659 - Other chronic osteomyelitis, unspecified thigh (5) Paraplegia at T4 level: CODE(S): G82.20 - Paraplegia, unspecified (6) History of tobacco use: CODE(S): Z87.891 - Personal history of nicotine dependence (7) Severe protein-calorie malnutrition: CODE(S): E43 - Unspecified severe protein-calorie malnutrition PLAN: Plan Patient was evaluated at the wound healing center today. Wound care - Moistened Promogram covered adaptic and topped with gauze/ABD daily to both the left ischial ulcer and the right ischial/steffi anal ulcer. Wash both ulcers with soap and water at the time of the dressing changes. Encourage nutritional supplementation with protein to help the healing process. Left ischial wound culture obtained 12/28/22 which was positive MRSA, Staphylococcus haemolyticus, Corynebacterium striatum, Proteus mirabilis, Streptococcus group F. He was treated with Augmentin and Doxycycline. He was evaluated by a plastic surgeon at [facility] in April 2023. He states he needs his GI issues improved before he has any surgeries. Pernell states that he has too much difficulty with transportation to go to [facility] for surgery. Will attempt to get home health to assist with his dressings a couple times per week. A wound culture was obtained today, 04/26/24 of both ulcers.? A positive cultures may necessitate need for antibiotic therapy. I will call him with the culture results and the plan if he needs treatment. Follow up 3 weeks. Call or come in sooner if develop any concerns.
== END 2024-05-10 23:59 | disposition home or self-care (01) ==
LOC: WC 13:45
PROVIDERS: PCP Internal Medicine; Referring Provider Internal Medicine; Visit Provider Nurse Practitioner Family
DX: L89.314 Pressure ulcer of right buttock, stage 4 (principal); L89.324 Pressure ulcer of left buttock, stage 4; G82.20 Paraplegia, unspecified; L98.499 Non-pressure chronic ulcer of skin of other sites with unspecified severity; Z89.611 Acquired absence of right leg above knee; M86.68 Other chronic osteomyelitis, other site; Z79.899 Other long term (current) drug therapy; Z86.14 Personal history of Methicillin resistant Staphylococcus aureus infection; Z87.891 Personal history of nicotine dependence
CPT/HCPCS: 11043; 11046; 87070; 87075; 87077; 87186; 87205

== ENCOUNTER 2024-05-29 10:58 | Outpatient (RCR) | payer MEDICARE, MEDICAID, SELFPAY ==
[2024-05-11 00:43] VITALS: BP 139/71; PULSE 83; RESP 16; TEMP 36.8; BMI 19.8
--- NOTE | 2024-05-18 12:46 | WC ---
Wound center has had no luck obtaining a agency to assist patient in wound care. Jasmin Santos [employer] spoke to patient about the option of Palliative care and he agreed. Referral sent on 05/17/24 and a call from ingrid Pisano with [facility] called letting me know that he does not meet criteria for this and that they no longer have staffed SW's or nurses to assist patients. Spoke to developer programmer analyst for ideas on other resources, she recommended Department of aging for coordination of local services for older adults and people with disabilities for [facility]. Called and spoke to Pernell and explained to him what area agencies on aging consist of and if he was okay to allow me to send a referral for this service. He was completely fine with it and the online referral was sent. Will wait on any contact. Explained to him that they should call for further questions. He was okay with this as well.
[2024-05-29 11:02] VITALS: BP 125/78; PULSE 102; RESP 18; TEMP 36.6; BMI 19.8
--- NOTE | 2024-05-29 12:55 | PCM.WC.PN ---
History of Present Illness Date of Service: 05/29/24 Chief Complaint: Bilateral ischial pressure sores, Stage IV. History of Wound: Surgery 04/08/20 - 1. Excision bleeding right ischial/perineal pressure sore, Stage IV. 2. Control of prostatic bleeding with electrocautery and Surgical hemostat. Wound Care - Left ischial and right ischial ulcers are moistened Promogran topped with ABD daily. Wash both ulcers with soap and water at the time of the dressing change. Left ischial ulcer wound culture obtained 04/26/24 positive for Pseudomonas, aeruginosa, Klebsiella pneumoniae, Pseudomas aeruginosa#2, and MRSA. He was treated with Cipro and Doxycycline. Left ischial ulcer culture 12/28/22 positive for MRSA, Staphylococcus haemolyticus, Corynebacterium striatum, Proteus mirabilus, and Streptococcus group F. He was treated with Augmentin and Doxycycline. Wound culture from 03/02/22 positive for Pseudomonas aeroginosa, Morganella morganii sp sibonii, and Corynebacterium. Due to his allergies and the the sensitivity of the cultures, patient was referred to ID, who placed him on Augmentin and Cipro, which he currently is on and is tolerating. Wound culture from 01/20/21 positive for Proteus mirabilis, Cornybacterium minutissium and Bacteroides fragilis. He was referred to ID for antibiotic management, which he was placed on Cefdinir, Doxycycline and Flagyl for 10 days. Patient has long standing bilateral ischial pressure sores, Stage IV, with the left side extending to the femoral head and the right side extending to the perineal area and the prostate. Surgery would entail quite extensive excision with amputations at a tertiary center. Patient does not want to pursue any heroic surgeries at this time since it is not a guarantee his pressure issues won't recur. With aggressive amputations, his already tenuous balance would be even more disrupted. At the present time, we are providing conservative care on a monthly basis. He stated his right leg gets in the way when transferring. He underwent a right AKA on 06/12/20 in [place]. Wound culture was done on 04/22/20. It showed Morganella morganii, Pseudomonas aeroginosa, Streptococcus group F, and Bacteroides fragilis. He has a lot of antibiotic allergies. His only real option is IV antibiotics. Dr. Chester also saw him at the [facility] and felt the wounds were colonized and held off on antibiotics at this time. If his clinical situation were to change, then would re-evaluate him for IV antibiotics at that time. Wound culture from 11/01/20 was positive for MRSA, E. coli, Proteus Mirabilis. He was treated with Augmentin and doxycycline. He had a cystectomy and a partial prostatectomy by Dr. Lala at [facility] on 08/04/22. He states he is feeling better than he was before having his bladder removed. Today he denies any fever, chills or nausea and vomiting. Progress of Wound: Patient has minimal help at home with his dressing changes. He is managing the best he can. We have not been able to find him home health to assist with his dressing changes a couple times per week. A referral has been sent in for the [place] [facility] [place]. He has not been contacted by them. His left ischial cluster has a couple areas of hypergranulation and the Superior edge of the ulcer has a mayfield color to it. No odor. He states he has completed his antibiotics. Right ischial ulcer with increased maceration surrounding the ulcer. Objective Data Objective Data Vital Signs: Vital Signs Temp Pulse Resp BP 97.8 F 102 H 18 125/78 H 05/29/24 11:02 05/29/24 11:02 05/29/24 11:02 05/29/24 11:02 Body Mass Index (BMI) 19.8 Charges/Coding Procedures Integumentary 111xxx-113xx: [id number] Manisha musc/fascia 20 sq cm/< Add On Codes: [id number] Manisha musc/fascia add-on Debridement Note Debridement Note Wound debrided: ischial ulcer cluster Laterality: Left Wound Grade/Stage: Stage IV Type of Debridement: Excisional debridement Anesthesia Used: 4% Lidocaine Solution Depth: Down to and including healthy tissue, in the subcutaneous layer and to muscle Percentage of wound debrided: 100 Instrument Used: 5mm curette Tissue Removed: Non viable tissue and slough into the muscle Severity: Fat Layer Exposed Amount of bleeding with debridement: Mild Bleeding Controlled with: Pressure, Compression and gauze and Silver Nitrate (to the area of hypergranulation.) Patient tolerated procedure: Patient tolerated procedure well Post-Debridement Measurements and Additional Note: Post-Debridement Measurements/Treatment WC - Nurse 1 - General Ulcer Assessment Start: 05/29/24 11:02 Freq: Status: Active Protocol: WILLIAMS Activity Type Activity Date Activity User E-sign Co-sign Detail Recorded Client Recorded Date Recorded By Document 05/29/24 11:02 RADHA [id number] 05/29/24 11:13 DL 05/29/24 11:02 WC - Today's Visit Information Type of service Follow-up Visit (Physician/DR[facility]ING [facility] ) Arrival Mode Wheelchair Transfer Assistance None Patient Identification Verified (Name & Yes ) Patient Requires Transmission-Based No Precautions Height and Weight Body Mass Index (BMI) 19.8 BMI Classification Normal Vital Signs Temperature (97.8 F-99.1 F) 97.8 F Temperature Source Temporal Pulse Rate (60-100) 102 H Pulse Location Monitor Respiratory Rate (12-18) 18 Respiratory rate source Observation Blood Pressure (90/60-120/80) 125/78 H Blood Pressure Mean (mm Hg) 93 Source Monitor History Since Last Visit- (Skip if this is Patient's initial visit) Have you changed medications since your No last visit? Any new allergies or adverse reactions No Had a fall/change in ADL's that may No increase risk of falls Signs or symptoms of abuse and/or No neglect since last visit Have you been in the hospital since your No last visit? Has dressing in place as prescribed No Has compression in place as prescribed N/A Has offloadiing in place as prescribed Yes Experienced any changes in pain level or No management Pain Scale: 0-10 Numeric Is Patient Pain Free? Yes - Nurse 1 - General Ulcer Measurement Start: 05/29/24 11:02 Freq: Status: Active Protocol: Activity Type Activity Date Activity User E-sign Co-sign Detail Recorded Client Recorded Date Recorded By Document 05/29/24 11:02 RADHA [id number] 05/29/24 11:13 DL 05/29/24 11:02 Wound Center Nurse 1 #8 L Ischium cluster -Current Size (cm) - Length 6.8 -Current Size (cm) - Width 3 -Current Size (cm) - Depth 0.1 -Total Square Cm 20.4 -Photo Taken Yes -Exudate Amt Medium -Exudate Type Serosanguineous -Wound Margin Thickened & Rolled Under -Granulation Amt Medium (34-66%) -Granulation Quality Dierks -Necrotic Tissue Type Adherent Slough -Structure Exposed N/A -Texture (Steffi-wound Skin Appearance) Scarring -Color (Steffi-wound Skin Appearance) No Abnormality -Temperature (Steffi-wound Skin No Abnormality Appearance) (Pt Warm) -Tenderness on Palpation (Steffi-wound No Skin Appearance) -Ulcer Cleansing Soap and Water -Foul Odor after Cleansing No #7 R Ischium cluster -Current Size (cm) - Length 4.2 -Current Size (cm) - Width 0.8 -Current Size (cm) - Depth 0.1 -Total Square Cm 3.36 -Photo Taken Yes -Exudate Amt Medium -Exudate Type Serosanguineous -Wound Margin Thickened & Rolled Under -Granulation Amt Medium (34-66%) -Granulation Quality Dierks -Necrosis Amt Medium (34-66%) -Necrotic Tissue Type Adherent Slough -Structure Exposed N/A -Texture (Steffi-wound Skin Appearance) Scarring -Moisture (Steffi-wound Skin Appearance) No Abnormality -Color (Steffi-wound Skin Appearance) No Abnormality -Temperature (Steffi-wound Skin No Abnormality Appearance) (Pt Warm) -Tenderness on Palpation (Stfefi-wound No Skin Appearance) -Ulcer Cleansing Soap and Water -Foul Odor after Cleansing No WC - Nurse 2 - General Ulcer CM Notes Start: 05/29/24 11:02 Freq: Status: Active Protocol: Activity Type Activity Date Activity User E-sign Co-sign Detail Recorded Client Recorded Date Recorded By Document 05/29/24 11:34 DEBORAH [id number] 05/29/24 11:45 DEBORAH 05/29/24 11:34 Wound Center Nurse 2 #8 L Ischium cluster -Time 11:35 -Correct Patient Yes -Correct Side, Site, Position Yes -Correct Procedure Yes -Procedure Performed Yes -Type of Procedure Debridement -Clinical Debridement Muscle / Fascia -Tissue Removed Muscle,Fascia -Post Debridement (cm) - Length 8 -Post Debridement (cm) - Width 2.8 -Post Debridement (cm) - Depth 1.7 -Total Square (Post) (cm) 22.4 -Area of Debridement (cm) - Length 8 -Area of Debridement (cm) - Width 2.8 -Total Square (Area) (cm) 22.4 -Tunneling No -Undermining/Tunneling No -Circular Undermining No -Wound/Ulcer Outcome Not Healed -Ulcer Cleansing Rinsed/ Irrigated with Saline -Foul Odor after Cleansing No -Bioengineered Tissue No -Bleeding Controlled with Pressure,Silver Nitrate -Treatment Response Procedure Tolerated Well -Offloading No -Pressure Reduction Wheelchair cushion -Debridement - Muscle / Fascia, 1st No 20sq cm #7 R Ischium cluster -Time 11:36 -Correct Patient Yes -Correct Side, Site, Position Yes -Correct Procedure Yes -Procedure Performed Yes -Type of Procedure Debridement -Clinical Debridement Muscle / Fascia -Tissue Removed Muscle,Fascia -Post Debridement (cm) - Length 4.5 -Post Debridement (cm) - Width 3.0 -Post Debridement (cm) - Depth 0.3 -Total Square (Post) (cm) 13.50 -Area of Debridement (cm) - Length 4.5 -Area of Debridement (cm) - Width 3.0 -Total Square (Area) (cm) 13.50 -Tunneling No -Undermining/Tunneling No -Circular Undermining No -Wound/Ulcer Outcome Not Healed -Ulcer Cleansing Rinsed/ Irrigated with Saline -Foul Odor after Cleansing No -Bioengineered Tissue No -Bleeding Controlled with Pressure -Treatment Response Procedure Tolerated Well -Offloading No -Pressure Reduction Wheelchair cushion -Debridement - Muscle / Fascia, 1st Yes 20sq cm -Debridement, Muscle/Fascia, ea addt'l 1 20sq cm or part thereof Pain Scale: 0-10 Numeric Is Patient Pain Free? Yes - Nurse 3 - General Ulcer D/C NN Start: 05/29/24 11:02 Freq: Status: Active Protocol: Activity Type Activity Date Activity User E-sign Co-sign Detail Recorded Client Recorded Date Recorded By Document 05/29/24 11:58 [id number] 05/29/24 12:00 05/29/24 11:58 Wound Care Center Nurse 3 #8 L Ischium cluster -Ulcer Cleansing Soap and Water -Primary Dressing Applied Promogran -Primary Dressing Covered/Secured with Dry Gauze, Secured with Tape -Promogran 1 #7 R Ischium cluster -Ulcer Cleansing Soap and Water -Other Dressing promogran -Primary Dressing Covered/Secured with Dry Gauze, Secured with Tape Treatment Response Procedure Tolerated Well Pain Scale: 0-10 Numeric Is Patient Pain Free? Yes - Visit Discharge Discharge Condition Stable Ambulatory Status Wheelchair Transportation Private Auto Additional Wound Wound debrided: perianal/ischial ulcer Laterality: Right Wound Grade/Stage: Stage IV Type of Debridement: Excisional debridement Anesthesia Used: 4% Lidocaine Solution Depth: Down to and including healthy tissue, in the subcutaneous layer and to muscle Percentage of wound debrided: 100 Instrument Used: 5mm curette Tissue Removed: Non viable tissue and slough into the muscle. Severity: Fat Layer Exposed Amount of bleeding with debridement: Mild Bleeding Controlled with: Pressure and Compression and gauze Patient tolerated procedure: Patient tolerated procedure well Operative Diagnosis: Tissue is macerated surrounding the ulcer, more so than normal. Assessment/Plan Assessment/Plan (1) Pressure sore of left ischium, stage 4: CODE(S): L89.324 - Pressure ulcer of left buttock, stage 4 (2) Right ischial pressure sore, stage 4: CODE(S): L89.314 - Pressure ulcer of right buttock, stage 4 (3) Perineal ulcer: CODE(S): L98.499 - Non-pressure chronic ulcer of skin of other sites with unspecified severity QUALIFIERS: Non-pressure ulcer stage: unspecified non-pressure ulcer stage Qualified Code(s): L98.499 - Non-pressure chronic ulcer of skin of other sites with unspecified severity (4) Chronic osteomyelitis, pelvis: CODE(S): M86.659 - Other chronic osteomyelitis, unspecified thigh (5) Paraplegia at T4 level: CODE(S): G82.20 - Paraplegia, unspecified (6) History of tobacco use: CODE(S): Z87.891 - Personal history of nicotine dependence (7) Severe protein-calorie malnutrition: CODE(S): E43 - Unspecified severe protein-calorie malnutrition PLAN: Plan Patient was evaluated at the wound healing center today. Wound care - Promogram covered with gauze/ABD daily to both the left ischial ulcer and the right ischial/steffi anal ulcer. Wash both ulcers with soap and water at the time of the dressing changes. Encouraged him to have his nephew who lives with him assist him with the dressing changes. Encourage nutritional supplementation with protein to help the healing process. Left ischial ulcer wound culture obtained 04/26/24 positive for Pseudomonas, aeruginosa, Klebsiella pneumoniae, Pseudomas aeruginosa#2, and MRSA. He was treated with Cipro and Doxycycline. He was evaluated by a plastic surgeon at [facility] in April 2023. He states he needs his GI issues improved before he has any surgeries. Pernell states that he has too much difficulty with transportation to go to [place] for surgery. Will refer him to Dr. Calhoun in the near future for further evaluation of these ulcers. Follow up 3 weeks. Call or come in sooner if develop any concerns.
== END 2024-06-10 23:59 | disposition home or self-care (01) ==
LOC: WC 10:58
PROVIDERS: PCP Internal Medicine; Referring Provider Internal Medicine; Visit Provider Nurse Practitioner Family
DX: L89.314 Pressure ulcer of right buttock, stage 4 (principal); L89.324 Pressure ulcer of left buttock, stage 4; G82.20 Paraplegia, unspecified; L98.499 Non-pressure chronic ulcer of skin of other sites with unspecified severity; Z89.611 Acquired absence of right leg above knee; M86.68 Other chronic osteomyelitis, other site; Z79.899 Other long term (current) drug therapy; Z86.14 Personal history of Methicillin resistant Staphylococcus aureus infection; Z87.891 Personal history of nicotine dependence
CPT/HCPCS: 11043; 11046

== ENCOUNTER 2024-06-21 13:21 | Outpatient (RCR) | payer MEDICARE, MEDICAID, SELFPAY ==
[2024-06-11 00:25] VITALS: BP 139/71; PULSE 83; RESP 16; TEMP 36.8; BMI 19.8
[2024-06-21 13:59] VITALS: BP 99/58; PULSE 119; RESP 16; TEMP 36.2; BMI 19.8
--- NOTE | 2024-06-21 15:32 | PCM.WC.PN ---
History of Present Illness Date of Service: 06/21/24 Chief Complaint: Bilateral ischial pressure sores, Stage IV. History of Wound: Surgery 04/08/20 - 1. Excision bleeding right ischial/perineal pressure sore, Stage IV. 2. Control of prostatic bleeding with electrocautery and Surgicel hemostat. Wound Care - Left ischial and right ischial ulcers are moistened Promogran topped with ABD daily. Wash both ulcers with soap and water at the time of the dressing change. Left ischial ulcer culture 12/28/22 positive for MRSA, Staphylococcus haemolyticus, Corynebacterium striatum, Proteus mirabilus, and Streptococcus group F. He was treated with Augmentin and Doxycycline. Wound culture from 03/02/22 positive for Pseudomonas aeroginosa, Morganella morganii sp sibonii, and Corynebacterium. Due to his allergies and the the sensitivity of the cultures, patient was referred to ID, who placed him on Augmentin and Cipro, which he currently is on and is tolerating. Wound culture from 01/20/21 positive for Proteus mirabilis, Cornybacterium minutissium and Bacteroides fragilis. He was referred to ID for antibiotic management, which he was placed on Cefdinir, Doxycycline and Flagyl for 10 days. Patient has long standing bilateral ischial pressure sores, Stage IV, with the left side extending to the femoral head and the right side extending to the perineal area and the prostate. Surgery would entail quite extensive excision with amputations at a tertiary center. Patient does not want to pursue any heroic surgeries at this time since it is not a guarantee his pressure issues won't recur. With aggressive amputations, his already tenuous balance would be even more disrupted. At the present time, we are providing conservative care on a monthly basis. He stated his right leg gets in the way when transferring. He underwent a right AKA on 06/12/20 in [place]. Wound culture was done on 04/22/20. It showed Morganella morganii, Pseudomonas aeroginosa, Streptococcus group F, and Bacteroides fragilis. He has a lot of antibiotic allergies. His only real option is IV antibiotics. Dr. Chester also saw him at the Wound Center and felt the wounds were colonized and held off on antibiotics at this time. If his clinical situation were to change, then would re-evaluate him for IV antibiotics at that time. Wound culture from 11/01/20 was positive for MRSA, E. coli, Proteus Mirabilis. He was treated with Augmentin and doxycycline. He had a cystectomy and a partial prostatectomy by Dr. Lala at [facility] on 08/04/22. He states he is feeling better than he was before having his bladder removed. Today he denies any fever, chills or nausea and vomiting. Progress of Wound: Patient has minimal help at home with his dressing changes. He was evaluated yesterday by the area of disability and aging for evaluation for assistance in his home with his dressing changes. He is managing the best he can. His ulcers are stable. They both are a cluster of ulcers now. He states he is not having much drainage. The right ischial ulcer has a lot of maceration surrounding the ulcer. Objective Data Objective Data Vital Signs: Vital Signs Temp Pulse Resp BP O2 Del Method 97.2 F L 119 H 16 99/58 L Room Air 06/21/24 13:59 06/21/24 13:59 06/21/24 13:59 06/21/24 13:59 06/21/24 13:59 Oxygen Delivery Method Room Air Body Mass Index (BMI) 19.8 Charges/Coding Procedures Integumentary 111xxx-113xx: [id number] Manisha musc/fascia 20 sq cm/< Add On Codes: [id number] Manisha musc/fascia add-on Debridement Note Debridement Note Wound debrided: ischial ulcer cluster Laterality: Left Wound Grade/Stage: Stage IV Type of Debridement: Excisional debridement Anesthesia Used: 4% Lidocaine Solution Depth: Down to and including healthy tissue, in the subcutaneous layer and to muscle Percentage of wound debrided: 100 Instrument Used: 5mm curette Tissue Removed: Non viable tissue and slough into the muscle Severity: Fat Layer Exposed Amount of bleeding with debridement: Mild Bleeding Controlled with: Pressure, Compression and gauze and Silver Nitrate (to the area of hypergranulation.) Patient tolerated procedure: Patient tolerated procedure well Post-Debridement Measurements and Additional Note: Post-Debridement Measurements/Treatment NIKA - Nurse 1 - General Ulcer Assessment Start: 06/21/24 13:59 Freq: Status: Active Protocol: WILLIAMS Activity Type Activity Date Activity User E-sign Co-sign Detail Recorded Client Recorded Date Recorded By Document 06/21/24 13:59 [id number] 06/21/24 14:04 06/21/24 13:59 - Today's Visit Information Type of service Follow-up Visit (Physician/INSULATION CUTTER ) Arrival Mode Wheelchair Transfer Assistance None Patient Identification Verified (Name & Yes ) Height and Weight Body Mass Index (BMI) 19.8 BMI Classification Normal Vital Signs Temperature (97.8 F-99.1 F) 97.2 F L Temperature Source Temporal Pulse Rate (60-100) 119 H Pulse Location Monitor Respiratory Rate (12-18) 16 Respiratory rate source Observation Oxygen Delivery Method Room Air Blood Pressure (90/60-120/80) 99/58 L Blood Pressure Mean (mm Hg) 71 Source Monitor Position Sitting Blood Pressure Location Left Arm History Since Last Visit- (Skip if this is Patient's initial visit) Have you changed medications since your No last visit? Any new allergies or adverse reactions No Had a fall/change in ADL's that may No increase risk of falls Signs or symptoms of abuse and/or No neglect since last visit Have you been in the hospital since your No last visit? Has dressing in place as prescribed Yes Has compression in place as prescribed N/A Has offloadiing in place as prescribed N/A Experienced any changes in pain level or No management Pain Scale: 0-10 Numeric Is Patient Pain Free? Yes - Nurse 1 - General Ulcer Measurement Start: 06/21/24 13:59 Freq: Status: Active Protocol: Activity Type Activity Date Activity User E-sign Co-sign Detail Recorded Client Recorded Date Recorded By Document 06/21/24 13:59 [id number] 06/21/24 14:04 06/21/24 13:59 Wound Center Nurse 1 #8 L Ischium cluster -Current Size (cm) - Length 0.1 -Current Size (cm) - Width 0.1 -Current Size (cm) - Depth 0.1 -Total Square Cm 0.01 -Photo Taken No -Epithelialization Small 1-33% -Tunneling No -Undermining/Tunneling No -Circular Undermining No -Wound Margin Fibrotic Scar, Thickened Scar -Granulation Amt None Present (0 %) -Slough/Fibrin Yes -Necrotic Tissue Type Adherent Slough -Texture (Steffi-wound Skin Appearance) Assessed -Moisture (Steffi-wound Skin Appearance) Assessed -Color (Steffi-wound Skin Appearance) Assessed -Ulcer Cleansing Rinsed/ Irrigated with Saline -Foul Odor after Cleansing No #7 R Ischium cluster -Current Size (cm) - Length 0.1 -Current Size (cm) - Width 0.1 -Current Size (cm) - Depth 0.1 -Total Square Cm 0.01 -Photo Taken No -Tunneling No -Undermining/Tunneling No -Circular Undermining No -Exudate Amt None Present -Wound Margin Fibrotic Scar, Thickened Scar -Granulation Amt None Present (0 %) -Texture (Steffi-wound Skin Appearance) Assessed -Moisture (Steffi-wound Skin Appearance) Assessed -Color (Steffi-wound Skin Appearance) Assessed -Temperature (Steffi-wound Skin No Abnormality Appearance) (Pt Warm) -Tenderness on Palpation (Steffi-wound No Skin Appearance) -Ulcer Cleansing Rinsed/ Irrigated with Saline -Foul Odor after Cleansing No WC - Nurse 2 - General Ulcer CM Notes Start: 06/21/24 13:59 Freq: Status: Active Protocol: Activity Type Activity Date Activity User E-sign Co-sign Detail Recorded Client Recorded Date Recorded By Document 06/21/24 14:14 [id number] 06/21/24 14:23 06/21/24 14:14 Wound Center Nurse 2 #8 L Ischium cluster -Time 14:16 -Correct Patient Yes -Correct Side, Site, Position Yes -Correct Procedure Yes -Procedure Performed Yes -Type of Procedure Debridement -Clinical Debridement Muscle / Fascia -Tissue Removed Muscle -Post Debridement (cm) - Length 3.0 -Post Debridement (cm) - Width 7.0 -Post Debridement (cm) - Depth 1.0 -Total Square (Post) (cm) 21.00 -Area of Debridement (cm) - Length 3.0 -Area of Debridement (cm) - Width 7.0 -Total Square (Area) (cm) 21.00 -Tunneling No -Undermining/Tunneling No -Circular Undermining No -Wound/Ulcer Outcome Not Healed -Ulcer Cleansing Rinsed/ Irrigated with Saline -Foul Odor after Cleansing No -Bioengineered Tissue No -Bleeding Controlled with Pressure -Treatment Response Procedure Tolerated Well -Debridement - Muscle / Fascia, 1st No 20sq cm #7 R Ischium cluster -Time 14:17 -Correct Patient Yes -Correct Side, Site, Position Yes -Correct Procedure Yes -Procedure Performed Yes -Type of Procedure Debridement -Clinical Debridement Muscle / Fascia -Tissue Removed Muscle -Post Debridement (cm) - Length 2.4 -Post Debridement (cm) - Width 4.3 -Post Debridement (cm) - Depth 0.3 -Total Square (Post) (cm) 10.32 -Area of Debridement (cm) - Length 2.4 -Area of Debridement (cm) - Width 4.3 -Total Square (Area) (cm) 10.32 -Tunneling No -Undermining/Tunneling No -Circular Undermining No -Wound/Ulcer Outcome Not Healed -Ulcer Cleansing Rinsed/ Irrigated with Saline -Foul Odor after Cleansing No -Bioengineered Tissue No -Bleeding Controlled with Pressure -Treatment Response Procedure Tolerated Well -Debridement - Muscle / Fascia, 1st Yes 20sq cm -Debridement, Muscle/Fascia, ea addt'l 1 20sq cm or part thereof Pain Scale: 0-10 Numeric Is Patient Pain Free? Yes WC - Nurse 3 - General Ulcer D/C NN Start: 06/21/24 13:59 Freq: Status: Active Protocol: Activity Type Activity Date Activity User E-sign Co-sign Detail Recorded Client Recorded Date Recorded By Document 06/21/24 14:41 DL [id number] 06/21/24 14:43 DL 06/21/24 14:41 Wound Care Center Nurse 3 #8 L Ischium cluster -Ulcer Cleansing Rinsed/ Irrigated with Saline -Foul Odor after Cleansing No -Primary Dressing Applied Hydrofera Blue Foam -Primary Dressing Covered/Secured with Dry Gauze, Secured with Tape -Hydrofera Blue Foam 0 #7 R Ischium cluster -Ulcer Cleansing Rinsed/ Irrigated with Saline -Primary Dressing Applied Hydrofera Blue Foam -Primary Dressing Covered/Secured with Dry Gauze, Secured with Tape -Hydrofera Blue Foam 0 Pain Scale: 0-10 Numeric Is Patient Pain Free? Yes Additional Wound Wound debrided: perianal/ischial ulcer cluster Laterality: Right Wound Grade/Stage: Stage IV Type of Debridement: Excisional debridement Anesthesia Used: 4% Lidocaine Solution Depth: Down to and including healthy tissue, in the subcutaneous layer and to muscle Percentage of wound debrided: 100 Instrument Used: 5mm curette Tissue Removed: Non viable tissue and slough into the muscle. Severity: Fat Layer Exposed Amount of bleeding with debridement: Mild Bleeding Controlled with: Pressure and Compression and gauze Patient tolerated procedure: Patient tolerated procedure well Operative Diagnosis: Tissue is macerated surrounding the ulcer. Assessment/Plan Assessment/Plan (1) Pressure sore of left ischium, stage 4: CODE(S): L89.324 - Pressure ulcer of left buttock, stage 4 (2) Right ischial pressure sore, stage 4: CODE(S): L89.314 - Pressure ulcer of right buttock, stage 4 (3) Perineal ulcer: CODE(S): L98.499 - Non-pressure chronic ulcer of skin of other sites with unspecified severity QUALIFIERS: Non-pressure ulcer stage: unspecified non-pressure ulcer stage Qualified Code(s): L98.499 - Non-pressure chronic ulcer of skin of other sites with unspecified severity (4) Chronic osteomyelitis, pelvis: CODE(S): M86.659 - Other chronic osteomyelitis, unspecified thigh (5) Paraplegia at T4 level: CODE(S): G82.20 - Paraplegia, unspecified (6) History of tobacco use: CODE(S): Z87.891 - Personal history of nicotine dependence (7) Severe protein-calorie malnutrition: CODE(S): E43 - Unspecified severe protein-calorie malnutrition PLAN: Plan Patient was evaluated at the wound healing center today. Wound care - Hydrofera blue covered with gauze/ABD daily to both the left ischial ulcer and the right ischial/steffi anal ulcer. Wash both ulcers with soap and water at the time of the dressing changes. Encouraged him to have his nephew who lives with him assist him with the dressing changes. Encourage nutritional supplementation with protein to help the healing process. Left ischial ulcer wound culture obtained 04/26/24 positive for Pseudomonas, aeruginosa, Klebsiella pneumoniae, Pseudomas aeruginosa#2, and MRSA. He was treated with Cipro and Doxycycline. He was evaluated by a plastic surgeon at [facility] in April 2023. He states he needs his GI issues improved before he has any surgeries. Pernell states that he has too much difficulty with transportation to go to [place] for surgery. Follow up [address] Calhoun to discuss any surgical options. Call or come in sooner if develop any concerns.
== END 2024-07-10 23:59 | disposition home or self-care (01) ==
LOC: WC 13:21
PROVIDERS: PCP Internal Medicine; Referring Provider Internal Medicine; Visit Provider Nurse Practitioner Family
DX: L89.314 Pressure ulcer of right buttock, stage 4 (principal); L89.324 Pressure ulcer of left buttock, stage 4; G82.20 Paraplegia, unspecified; L98.499 Non-pressure chronic ulcer of skin of other sites with unspecified severity; M86.68 Other chronic osteomyelitis, other site; Z86.14 Personal history of Methicillin resistant Staphylococcus aureus infection; Z87.891 Personal history of nicotine dependence
CPT/HCPCS: 11043; 11046

== ENCOUNTER 2024-07-17 13:06 | Outpatient (RCR) | payer MEDICARE, MEDICAID, SELFPAY ==
[2024-07-11 00:13] VITALS: BP 139/71; PULSE 83; RESP 16; TEMP 36.8; BMI 19.8
[2024-07-17 13:16] VITALS: BP 147/78; PULSE 83; RESP 18; TEMP 36.7; BMI 19.8
--- NOTE | 2024-07-17 17:29 | PCM.WC.HP ---
History of Present Illness Date of Service: 07/17/24 Chief Complaint: Bilateral ischial pressure sores, Stage IV. History of Wound: Surgery 04/08/20 - 1. Excision bleeding right ischial/perineal pressure sore, Stage IV. 2. Control of prostatic bleeding with electrocautery and Surgicel hemostat. Wound Care - Left ischial and right ischial ulcers are moistened Promogran topped with ABD daily. Wash both ulcers with soap and water at the time of the dressing change. Left ischial ulcer culture 12/28/22 positive for MRSA, Staphylococcus haemolyticus, Corynebacterium striatum, Proteus mirabilus, and Streptococcus group F. He was treated with Augmentin and Doxycycline. Wound culture from 03/02/22 positive for Pseudomonas aeroginosa, Morganella morganii sp sibonii, and Corynebacterium. Due to his allergies and the the sensitivity of the cultures, patient was referred to ID, who placed him on Augmentin and Cipro, which he currently is on and is tolerating. Wound culture from 01/20/21 positive for Proteus mirabilis, Cornybacterium minutissium and Bacteroides fragilis. He was referred to ID for antibiotic management, which he was placed on Cefdinir, Doxycycline and Flagyl for 10 days. Patient has long standing bilateral ischial pressure sores, Stage IV, with the left side extending to the femoral head and the right side extending to the perineal area and the prostate. Surgery would entail quite extensive excision with amputations at a tertiary center. Patient does not want to pursue any heroic surgeries at this time since it is not a guarantee his pressure issues won't recur. With aggressive amputations, his already tenuous balance would be even more disrupted. At the present time, we are providing conservative care on a monthly basis. He stated his right leg gets in the way when transferring. He underwent a right AKA on 06/12/20 in [place]. Wound culture was done on 04/22/20. It showed Morganella morganii, Pseudomonas aeroginosa, Streptococcus group F, and Bacteroides fragilis. He has a lot of antibiotic allergies. His only real option is IV antibiotics. Dr. Chester also saw him at the [facility] and felt the wounds were colonized and held off on antibiotics at this time. If his clinical situation were to change, then would re-evaluate him for IV antibiotics at that time. Wound culture from 11/01/20 was positive for MRSA, E. coli, Proteus Mirabilis. He was treated with Augmentin and doxycycline. He had a cystectomy and a partial prostatectomy by Dr. Lala at [facility] on 08/04/22. He states he is feeling better than he was before having his bladder removed. Current encounter, 17 July 2024: Today he denies any fever, chills or nausea and vomiting. Doing well overall. Reports that he is consistent with his wound care. Reports that he wants to see a spine surgeon and needs a referral for evaluation of his kyphosis. There is a spine surgeon in [place] that he would like to go to for a second opinion (Dr. Doty saw the patient in did not think he was a good surgical candidate at this time). Patient believes that his most important health issue is his scoliosis and he would like this corrected first. Of note patient has urostomy, but he manages his bowel movements but digital decompaction (no colostomy) [facility] Medical History Pressure ulcer Injury of back Heartburn Microcytic anemia Anemia, unspecified Solitary rectal ulcer syndrome Alcohol use Uses wheelchair Former smoker Phantom pain Cardiology follow-up encounter History of echocardiogram Crohn's disease Wears glasses Marijuana use Anxiety Open wound Gastric reflux Weight loss Rectal abnormality Incomplete right bundle branch block Left ischial pressure sore Nonrheumatic mitral (valve) insufficiency Nonrheumatic mitral (valve) prolapse Above-knee amputation of right lower extremity Prostatic hemorrhage Bleeding from left hip wound Chronic osteomyelitis, pelvis MRSA (methicillin resistant Staphylococcus aureus) infection Difficulty transferring location Bacteremia Kidney calculi Hematuria Severe protein-calorie malnutrition History of tobacco use Paraplegia at T4 level Scoliosis Stomach ulcer Heart murmur Recurrent infections History of blood transfusion History of blood clots History of UTI History of fracture History of back problems Right ischial pressure sore, stage 4 Pseudomonas aeruginosa infection Proteus infection Urinary tract infection Perineal ulcer History of osteomyelitis History of MRSA infection left ischial pressure sore, stage IV Home Medications ?Medication ?Instructions ?Recorded ?Last Taken ?Type omeprazole 40 mg capsule,delayed 40 mg PO BID #60 caps 04/04/24 Unknown Rx release sucralfate 100 mg/mL oral 10 ml PO Q6H #1,000 mL 04/04/24 Unknown Rx suspension ciprofloxacin HCl 500 mg tablet 500 mg PO Q12H 14 days #28 tabs 05/02/24 Unknown Rx (Cipro) doxycycline monohydrate 100 mg 100 mg PO BID 14 days #28 tabs 05/02/24 Unknown Rx tablet Allergy/AdvReac Type Severity Reaction Status Date / Time cephalexin monohydrate (From Allergy Itching Verified 03/29/24 15:49 Keflex) latex Allergy ONLY IF Verified 03/29/24 15:49 [employer] sulfamethoxazole Allergy Hives Verified 03/29/24 15:49 Family History Unknown Breast cancer Surgical History Hx of colonoscopy Hx of above knee amputation History of left below knee amputation History of left below knee amputation H/O ureteroileostomy Social History household members: significant other Smoking Status: Former smoker alcohol intake: current alcohol intake frequency: 3 or more drinks per day Alcohol type: beer substance use type: marijuana Vital Signs Vital Signs Vital Signs: 07/17/24 13:16 Temperature 98.0 F Temperature Source Temporal Pulse Rate 83 Respiratory Rate 18 Blood Pressure 147/78 H Blood Pressure Mean 101 Blood Pressure Source Monitor Blood Pressure Position Sitting Blood Pressure Location Right Arm Oxygen Delivery Method Room Air Weight Body Mass Index (BMI) 19.8 Physical Exam Narrative Right ischial wound that is down to subcutaneous tissue/muscle and is 4 x 1 cm, no signs of surrounding infection. Left trochanteric wound with thin skin over bone and some hard bony prominence immediately adjacent to a wound that is down muscle/subcutaneous tissue. No signs of surrounding acute infection. Const alert and oriented x3 HEENT normocephalic Eyes EOMs intact bilaterally Chest Chest Narrative: Severe kyphosis Cardio regular rate GI GI Narrative: Abdomen with urostomy Debridement Note Debridement Note Wound debrided: Right ischial wound and left trochanteric wound Type of Debridement: Excisional debridement Anesthesia Used: 4% Lidocaine Solution Depth: to muscle Percentage of wound debrided: 20 Instrument Used: 7mm curette Severity: Necrosis of Muscle Amount of bleeding with debridement: Mild Bleeding Controlled with: Compression and gauze Patient tolerated procedure: Patient tolerated procedure well Post-Debridement Measurements and Additional Note: Post-Debridement Measurements/Treatment - Nurse 1 - General Ulcer Assessment Start: 07/17/24 13:16 Freq: Status: Active Protocol: WILLIAMS Activity Type Activity Date Activity User E-sign Co-sign Detail Recorded Client Recorded Date Recorded By Document 07/17/24 13:16 RADHA [id number] 07/17/24 13:25 KW 07/17/24 13:16 - Today's Visit Information Type of service Follow-up Visit (Physician/CT TECH ) Arrival Mode Wheelchair Patient Identification Verified (Name & Yes ) Height and Weight Body Mass Index (BMI) 19.8 BMI Classification Normal Vital Signs Temperature (97.8 F-99.1 F) 98.0 F Temperature Source Temporal Pulse Rate (60-100) 83 Pulse Location Monitor Respiratory Rate (12-18) 18 Respiratory rate source Observation Oxygen Delivery Method Room Air Blood Pressure (90/60-120/80) 147/78 H Blood Pressure Mean 101 Source Monitor Position Sitting Blood Pressure Location Right Arm History Since Last Visit- (Skip if this is Patient's initial visit) Have you changed medications since your No last visit? Any new allergies or adverse reactions No Had a fall/change in ADL's that may No increase risk of falls Signs or symptoms of abuse and/or No neglect since last visit Have you been in the hospital since your No last visit? Has dressing in place as prescribed Yes Has compression in place as prescribed N/A Has offloadiing in place as prescribed N/A Experienced any changes in pain level or No management Left Footwear Regular Shoe Right Footwear Regular Shoe Pain Scale: 0-10 Numeric Is Patient Pain Free? Yes [facility] Nurse 1 - General Ulcer Measurement Start: 07/17/24 13:16 Freq: Status: Active Protocol: Activity Type Activity Date Activity User E-sign Co-sign Detail Recorded Client Recorded Date Recorded By Document 07/17/24 13:16 RADHA [id number] 07/17/24 13:25 KW 07/17/24 13:16 Wound Center Nurse 1 #8 L Ischium cluster -Current Size (cm) - Length 0.1 -Current Size (cm) - Width 0.1 -Current Size (cm) - Depth 0.1 -Total Square Cm 0.01 -Exudate Amt Small -Exudate Type Serosanguineous -Wound Margin Distinct, Outline Attached -Granulation Amt Large (67-100%) -Granulation Quality Pale,[place]y [place] -Texture (Steffi-wound Skin Appearance) Assessed -Moisture (Steffi-wound Skin Appearance) Assessed -Color (Steffi-wound Skin Appearance) Assessed -Temperature (Steffi-wound Skin No Abnormality Appearance) (Pt Warm) -Tenderness on Palpation (Steffi-wound No Skin Appearance) -Ulcer Cleansing Rinsed/ Irrigated with Saline -Foul Odor after Cleansing No -Anesthetic Used 5% Lidocaine Gel #7 R Ischium cluster -Current Size (cm) - Length 5.4 -Current Size (cm) - Width 0.8 -Current Size (cm) - Depth 0.2 -Total Square Cm 4.32 -Date of Last Picture (Recall this 07/17/24 field) -Exudate Amt Small -Exudate Type Serosanguineous -Wound Margin Distinct, Outline Attached -Granulation Amt Large (67-100%) -Granulation Quality [place],Red -Necrosis Amt Small (1-33%) -Necrotic Tissue Type Adherent Slough -Texture (Steffi-wound Skin Appearance) Assessed -Moisture (Steffi-wound Skin Appearance) Maceration -Color (Steffi-wound Skin Appearance) Assessed -Temperature (Steffi-wound Skin No Abnormality Appearance) (Pt Warm) -Tenderness on Palpation (Steffi-wound No Skin Appearance) -Ulcer Cleansing Rinsed/ Irrigated with Saline -Foul Odor after Cleansing No -Anesthetic Used 5% Lidocaine Gel WC - Nurse 2 - General Ulcer CM Notes Start: 07/17/24 13:16 Freq: Status: Active Protocol: Activity Type Activity Date Activity User E-sign Co-sign Detail Recorded Client Recorded Date Recorded By Document 07/17/24 13:50 DEBORAH [id number] 07/17/24 13:55 DEBORAH 07/17/24 13:50 Wound Center Nurse 2 #8 L Ischium cluster -Time 13:51 -Correct Patient Yes -Correct Side, Site, Position Yes -Correct Procedure Yes -Procedure Performed Yes -Type of Procedure Debridement -Clinical Debridement Muscle / Fascia -Tissue Removed Muscle,Fascia -Post Debridement (cm) - Length 6 -Post Debridement (cm) - Width 5 -Post Debridement (cm) - Depth 1 -Total Square (Post) (cm) 30 -Area of Debridement (cm) - Length 0.6 -Area of Debridement (cm) - Width 0.5 -Total Square (Area) (cm) 0.30 -Tunneling No -Undermining/Tunneling No -Circular Undermining No -Wound/Ulcer Outcome Not Healed -Ulcer Cleansing Rinsed/ Irrigated with Saline -Foul Odor after Cleansing No -Bioengineered Tissue No -Bleeding Controlled with Pressure -Treatment Response Procedure Tolerated Well -Offloading No -Debridement - Muscle / Fascia, 1st Yes 20sq cm #7 R Ischium cluster -Correct Patient No -Correct Side, Site, Position No -Correct Procedure No -Procedure Performed No -Wound/Ulcer Outcome Not Healed -Debridement - Subq, 1st 20sq cm No Pain Scale: 0-10 Numeric Is Patient Pain Free? Yes - Nurse 3 - General Ulcer D/C NN Start: 07/17/24 13:16 Freq: Status: Active Protocol: Activity Type Activity Date Activity User E-sign Co-sign Detail Recorded Client Recorded Date Recorded By Document 07/17/24 14:03 DL [id number] 07/17/24 14:05 DL 07/17/24 14:03 Wound Care Center Nurse 3 #8 L Ischium cluster -Ulcer Cleansing Rinsed/ Irrigated with Saline -Foul Odor after Cleansing No -Primary Dressing Applied Aquacel AG 4x4 -Primary Dressing Covered/Secured with Dry Gauze, Secured with Tape -Other Covering ABD -Aquacel AG 4x4 1 #7 R Ischium cluster -Ulcer Cleansing Rinsed/ Irrigated with Saline -Foul Odor after Cleansing No -Other Dressing aquacel ag -Primary Dressing Covered/Secured with Dry Gauze, Secured with Tape -Other Covering ABD Treatment Response Procedure Tolerated Well Pain Scale: 0-10 Numeric Is Patient Pain Free? Yes - Visit Discharge Discharge Condition Stable Ambulatory Status Wheelchair Transportation Private Auto Charges/Coding Visit Charges Office Visits / Consults: [id number] OV L5 New 60min Procedures Integumentary [id number]: [id number] Manisha musc/fascia 20 sq cm/< (25 Modifier ) Assessment/Plan Assessment/Plan (1) Pressure sore of left ischium, stage 4: CODE(S): L89.324 - Pressure ulcer of left buttock, stage 4 (2) Decubitus ulcer of trochanteric region of left hip, unstageable: CODE(S): L89.220 - Pressure ulcer of left hip, unstageable PLAN: Plan Patient has a complicated past medical history. Cannot have an MRI because of an implantable device, and has not had a recent CT scan. I have referred him to the spine surgeon at his request. He would like to get this taken care of first. I told him that a spine surgeon would likely not want to operate on his back if he has open wounds, and if this is the case we could start addressing the left trochanteric wound with the help of orthopedics for a disarticulation of the hip joint ([place]) followed by reconstruction. In the meantime we are going to get nutrition labs, and refer to the nutrition consult team to improve protein intake. He needs a pressure offloading bed He will continue the current wound care regimen. Follow-up with me in a month, at which point I will reevaluate and likely order a CT to evaluate for osteomyelitis.
--- NOTE | 2024-07-18 12:00 | WC ---
PHOTO 07/17/24 LEFT ISCHIUM CLUSTER
--- NOTE | 2024-07-18 12:00 | WC ---
PHOTO 07/17/24 RIGHT ISCHIUM CLUSTER
== END 2024-08-10 23:59 | disposition home or self-care (01) ==
LOC: WC 13:06
PROVIDERS: PCP Internal Medicine; Referring Provider Internal Medicine; Visit Provider Nurse Practitioner Family
DX: L89.314 Pressure ulcer of right buttock, stage 4 (principal); L89.324 Pressure ulcer of left buttock, stage 4; L89.220 Pressure ulcer of left hip, unstageable; Z89.611 Acquired absence of right leg above knee; Z89.512 Acquired absence of left leg below knee; M40.209 Unspecified kyphosis, site unspecified; Z79.899 Other long term (current) drug therapy; Z87.891 Personal history of nicotine dependence; Z86.14 Personal history of Methicillin resistant Staphylococcus aureus infection
CPT/HCPCS: 11043

== ENCOUNTER → 2024-08-02 | Outpatient (CLI) | payer MEDICARE, MEDICAID, SELFPAY ==
[2024-08-02 15:30] LABS: Absolute Lymphocyte Count 1.28 X10^3/uL (0.83-4.51); Absolute Neutrophil Count 6.8 X10^3/uL (2.0-7.7); Basophil# 0.04 X10^3/uL; Basophil% 0.4 % (0-1); Eosinophil# 0.17 X10^3/uL; Eosinophils% 1.8 % (0-5); Hematocrit 44.5 % (40-54); Lymphocyte # 1.28 X10^3/ul (0.83-4.51); Lymphocyte % 13.8 % (19-41); Mean Corp Hgb Conc 31.5 g/dL (32-36); Mean Corpuscular Hgb 29.1 pg (27.0-32.0); Mean Corpuscular Volume 92.5 fL (80-94); Mean Platelet Vol. 10.4 fl (6.2-12.0); Monocyte# 0.88 X10^3/uL; Monocyte% 9.5 % (0-10); NRBC Flagged by Analyzer 0 % (0-5); Neutrophil # 6.84 X10^3/uL (2.7-7.7); Neutrophil % 73.9 % (47-70); Platelet Count 264 K/mm3 (150-450); RBC Distribution Width CV 12.9 % (11.6-14.6); RBC Distribution Width SD 44.2 fl (35.1-43.9); Red Blood Count 4.81 M/mm3 (4.6-6.2); White Blood Count 9.3 K/mm3 (4.4-11.0)
[2024-08-02 20:14] LABS: ALB/GLOB Ratio 1.2 RATIO (0.9-2.4); AST(SGOT) 19 U/L (15-37); Alanine Aminotransfer ALT/SGPT 22 U/L (16-61); Albumin, Serum 3.7 g/dL (3.2-5.0); Alkaline Phosphatase 136 U/L (45-117); Anion Gap 5 (5-15); BUN 26 mg/dL (7-18); BUN/Creat Ratio 46.7 RATIO (10-20); Calcium,Total 9.2 mg/dL (8.5-10.1); Chloride 108 mmol/L (98-107); Creatinine, Serum 0.56 mg/dL (0.70-1.30); EST Glomerular Filtration Rate 161 mL/min (>60); Est Glom Filt Rate - Afr Amer 195 mL/min (>60); Globulin 3.1 g/dL (2.2-4.2); Glucose 95 mg/dL (74-106); Potassium 4.2 mmol/L (3.5-5.1); Protein, Total 6.8 g/dL (6.4-8.2); Sodium Level 142 mmol/L (136-145)
[2024-08-04 10:58] LABS: Prealbumin 22 mg/dL (10-36)
== END | disposition home or self-care (01) ==
PROVIDERS: PCP Internal Medicine; Referring Provider Nurse Practitioner Family; Visit Provider Nurse Practitioner Family
DX: E44.1 Mild protein-calorie malnutrition (principal)
CPT/HCPCS: 36415; 80053; 84134; 85025

== ENCOUNTER 2024-08-16 13:25 | Outpatient (RCR) | payer MEDICARE, MEDICAID, SELFPAY ==
[2024-08-11 00:11] VITALS: BP 139/71; PULSE 83; RESP 16; TEMP 36.8; BMI 19.8
[2024-08-16 13:36] VITALS: BP 118/73; PULSE 108; RESP 18; TEMP 35.9; BMI 19.8
--- NOTE | 2024-08-16 16:58 | PCM.WC.PN ---
History of Present Illness Date of Service: 08/16/24 Chief Complaint: Bilateral ischial pressure sores, Stage IV. History of Wound: Surgery 04/08/20 - 1. Excision bleeding right ischial/perineal pressure sore, Stage IV. 2. Control of prostatic bleeding with electrocautery and Surgicel hemostat. Wound Care - Left ischial and right ischial ulcers are moistened Promogran topped with ABD daily. Wash both ulcers with soap and water at the time of the dressing change. Left ischial ulcer culture 12/28/22 positive for MRSA, Staphylococcus haemolyticus, Corynebacterium striatum, Proteus mirabilus, and Streptococcus group F. He was treated with Augmentin and Doxycycline. Wound culture from 03/02/22 positive for Pseudomonas aeroginosa, Morganella morganii sp sibonii, and Corynebacterium. Due to his allergies and the the sensitivity of the cultures, patient was referred to ID, who placed him on Augmentin and Cipro, which he currently is on and is tolerating. Wound culture from 01/20/21 positive for Proteus mirabilis, Cornybacterium minutissium and Bacteroides fragilis. He was referred to ID for antibiotic management, which he was placed on Cefdinir, Doxycycline and Flagyl for 10 days. Patient has long standing bilateral ischial pressure sores, Stage IV, with the left side extending to the femoral head and the right side extending to the perineal area and the prostate. Surgery would entail quite extensive excision with amputations at a tertiary center. Patient does not want to pursue any heroic surgeries at this time since it is not a guarantee his pressure issues won't recur. With aggressive amputations, his already tenuous balance would be even more disrupted. At the present time, we are providing conservative care on a monthly basis. He stated his right leg gets in the way when transferring. He underwent a right AKA on 06/12/20 in [place]. Wound culture was done on 04/22/20. It showed Morganella morganii, Pseudomonas aeroginosa, Streptococcus group F, and Bacteroides fragilis. He has a lot of antibiotic allergies. His only real option is IV antibiotics. Dr. Chester also saw him at the Wound Center and felt the wounds were colonized and held off on antibiotics at this time. If his clinical situation were to change, then would re-evaluate him for IV antibiotics at that time. Wound culture from 11/01/20 was positive for MRSA, E. coli, Proteus Mirabilis. He was treated with Augmentin and doxycycline. He had a cystectomy and a partial prostatectomy by Dr. Lala at [facility] on 08/04/22. He states he is feeling better than he was before having his bladder removed. 17 July 2024: Today he denies any fever, chills or nausea and vomiting. Doing well overall. Reports that he is consistent with his wound care. Reports that he wants to see a spine surgeon and needs a referral for evaluation of his kyphosis. There is a spine surgeon in [place] that he would like to go to for a second opinion (Dr. Doty saw the patient in did not think he was a good surgical candidate at this time). Patient believes that his most important health issue is his scoliosis and he would like this corrected first. Of note patient has urostomy, but he manages his bowel movements but digital decompaction (no colostomy) Progress of Wound: Today patient is doing well. He is denying an fever, chills, nausea or vomiting. He denies having issues with his wound care. His left and right ischial ulcers are stable. He has some dry non viable tissue present. Objective Data Objective Data Vital Signs: Vital Signs Temp Pulse Resp BP 96.6 F L 108 H 18 118/73 08/16/24 13:36 08/16/24 13:36 08/16/24 13:36 08/16/24 13:36 Weight: 99 lb 15.992 oz Body Mass Index (BMI) 19.8 Charges/Coding Procedures Integumentary 111xxx-113xx: [id number] Manisha musc/fascia 20 sq cm/< Add On Codes: 16931 Manisha musc/fascia add-on Debridement Note Debridement Note Wound debrided: ischial/trochanteric region ulcer cluster Laterality: Left Wound Grade/Stage: Stage IV Type of Debridement: Excisional debridement Anesthesia Used: 4% Lidocaine Solution Depth: Down to and including healthy tissue, in the subcutaneous layer and to muscle Percentage of wound debrided: 100 Instrument Used: 5mm curette Tissue Removed: Non viable tissue and slough into the muscle Severity: Fat Layer Exposed Amount of bleeding with debridement: Mild Bleeding Controlled with: Pressure, Compression and gauze and Silver Nitrate (to the area of hypergranulation.) Patient tolerated procedure: Patient tolerated procedure well Post-Debridement Measurements and Additional Note: Post-Debridement Measurements/Treatment NIKA - Nurse 1 - General Ulcer Assessment Start: 08/16/24 13:36 Freq: Status: Active Protocol: WILLIAMS Activity Type Activity Date Activity User E-sign Co-sign Detail Recorded Client Recorded Date Recorded By Document 08/16/24 13:36 DL [id number] 08/16/24 13:43 DL 08/16/24 13:36 WC - Today's Visit Information Type of service Follow-up Visit (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/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 ) Arrival Mode Wheelchair Transfer Assistance None Patient Identification Verified (Name & Yes ) Patient Requires Transmission-Based No Precautions Height and Weight Body Mass Index (BMI) 19.8 BMI Classification Normal Vital Signs Temperature (97.8 F-99.1 F) 96.6 F L Temperature Source Temporal Pulse Rate (60-100) 108 H Pulse Location Monitor Respiratory Rate (12-18) 18 Respiratory rate source Observation Blood Pressure (90/60-120/80) 118/73 Blood Pressure Mean (mm Hg) 88 Source Monitor History Since Last Visit- (Skip if this is Patient's initial visit) Have you changed medications since your No last visit? Any new allergies or adverse reactions No Had a fall/change in ADL's that may No increase risk of falls Signs or symptoms of abuse and/or No neglect since last visit Have you been in the hospital since your No last visit? Has dressing in place as prescribed Yes Has offloadiing in place as prescribed Yes Experienced any changes in pain level or No management Pain Scale: 0-10 Numeric Is Patient Pain Free? Yes - Nurse 1 - General Ulcer Measurement Start: 08/16/24 13:36 Freq: Status: Active Protocol: Activity Type Activity Date Activity User E-sign Co-sign Detail Recorded Client Recorded Date Recorded By Document 08/16/24 13:36 RADHA [id number] 08/16/24 13:43 DL 08/16/24 13:36 Wound Center Nurse 1 #8 L Ischium cluster -Current Size (cm) - Length 0.1 -Current Size (cm) - Width 0.1 -Current Size (cm) - Depth 0.1 -Total Square Cm 0.01 -Exudate Amt None Present -Wound Margin Thickened & Rolled Under -Granulation Amt Large (67-100%) -Granulation Quality Pale -Necrosis Amt Small (1-33%) -Necrotic Tissue Type Eschar -Structure Exposed N/A -Texture (Steffi-wound Skin Appearance) Scarring -Moisture (Steffi-wound Skin Appearance) No Abnormality -Color (Steffi-wound Skin Appearance) No Abnormality -Temperature (Steffi-wound Skin No Abnormality Appearance) (Pt Warm) -Tenderness on Palpation (Steffi-wound No Skin Appearance) -Foul Odor after Cleansing No -Anesthetic Used 5% Lidocaine Gel #7 R Ischium cluster -Current Size (cm) - Length 2.5 -Current Size (cm) - Width 0.4 -Current Size (cm) - Depth 0.3 -Total Square Cm 1.00 -Exudate Amt Small -Exudate Type Serosanguineous -Wound Margin Thickened & Rolled Under -Granulation Amt Large (67-100%) -Granulation Quality Red -Necrosis Amt Small (1-33%) -Necrotic Tissue Type Adherent Slough -Structure Exposed N/A -Texture (Steffi-wound Skin Appearance) Scarring -Moisture (Steffi-wound Skin Appearance) Maceration -Color (Steffi-wound Skin Appearance) No Abnormality -Tenderness on Palpation (Steffi-wound No Skin Appearance) -Ulcer Cleansing Soap and Water -Foul Odor after Cleansing No -Anesthetic Used 5% Lidocaine Gel WC - Nurse 2 - General Ulcer CM Notes Start: 08/16/24 13:36 Freq: Status: Active Protocol: Activity Type Activity Date Activity User E-sign Co-sign Detail Recorded Client Recorded Date Recorded By Document 08/16/24 14:47 [id number] 08/16/24 14:56 08/16/24 14:47 Wound Center Nurse 2 #8 L Ischium cluster -Time 14:47 -Correct Patient Yes -Correct Side, Site, Position Yes -Correct Procedure Yes -Procedure Performed Yes -Type of Procedure Debridement -Clinical Debridement Muscle / Fascia -Tissue Removed Muscle -Post Debridement (cm) - Length 6.0 -Post Debridement (cm) - Width 4.0 -Post Debridement (cm) - Depth 0.8 -Total Square (Post) (cm) 24.00 -Area of Debridement (cm) - Length 6.0 -Area of Debridement (cm) - Width 4.0 -Total Square (Area) (cm) 24.00 -Tunneling No -Undermining/Tunneling No -Circular Undermining No -Wound/Ulcer Outcome Not Healed -Ulcer Cleansing Rinsed/ Irrigated with Saline -Foul Odor after Cleansing No -Bioengineered Tissue No -Bleeding Controlled with Pressure -Treatment Response Procedure Tolerated Well -Debridement - Muscle / Fascia, 1st No 20sq cm #7 R Ischium cluster -Time 14:48 -Correct Patient Yes -Correct Side, Site, Position Yes -Correct Procedure Yes -Procedure Performed Yes -Type of Procedure Debridement -Clinical Debridement Muscle / Fascia -Tissue Removed Subcutaneous, Muscle -Post Debridement (cm) - Length 4.0 -Post Debridement (cm) - Width 2.8 -Post Debridement (cm) - Depth 0.4 -Total Square (Post) (cm) 11.20 -Area of Debridement (cm) - Length 4.0 -Area of Debridement (cm) - Width 2.8 -Total Square (Area) (cm) 11.20 -Tunneling No -Undermining/Tunneling No -Circular Undermining No -Wound/Ulcer Outcome Not Healed -Ulcer Cleansing Rinsed/ Irrigated with Saline -Foul Odor after Cleansing No -Bioengineered Tissue No -Bleeding Controlled with Pressure -Treatment Response Procedure Tolerated Well -Debridement - Muscle / Fascia, 1st Yes 20sq cm -Debridement, Muscle/Fascia, ea addt'l 1 20sq cm or part thereof Pain Scale: 0-10 Numeric Is Patient Pain Free? Yes WC - Nurse 3 - General Ulcer D/C NN Start: 08/16/24 13:36 Freq: Status: Active Protocol: Activity Type Activity Date Activity User E-sign Co-sign Detail Recorded Client Recorded Date Recorded By Document 08/16/24 15:20 DL [id number] 08/16/24 15:21 DL Document 08/16/24 16:39 DL [id number] 08/16/24 16:41 DL 08/16/24 08/16/24 15:20 16:39 Wound Care Center Nurse 3 #8 L Ischium cluster -Ulcer Cleansing Rinsed/ Soap and Water Irrigated with Saline -Foul Odor after Cleansing No No -Primary Dressing Applied Aquacel AG 4x4 Aquacel AG 4x4 -Primary Dressing Covered/Secured with Dry Gauze, Dry Gauze, Secured with Secured with Tape Tape -Aquacel AG 4x4 1 1 #7 R Ischium cluster -Ulcer Cleansing Rinsed/ Soap and Water Irrigated with Saline -Foul Odor after Cleansing No No -Other Dressing AQAUCEL ag aquacel AG -Primary Dressing Covered/Secured with Dry Gauze, Dry Gauze, Secured with Secured with Tape Tape Treatment Response Procedure Procedure Tolerated Well Tolerated Well Pain Scale: 0-10 Numeric Is Patient Pain Free? Yes Yes WC - Visit Discharge Discharge Condition Stable Stable Ambulatory Status Wheelchair Wheelchair Transportation Private Auto Private Auto Facility Type Home Health Home Health Orders Sent Yes Yes Additional Wound Wound debrided: perianal/ischial ulcer cluster Laterality: Right Wound Grade/Stage: Stage IV Type of Debridement: Excisional debridement Anesthesia Used: 4% Lidocaine Solution Depth: Down to and including healthy tissue, in the subcutaneous layer and to muscle Percentage of wound debrided: 100 Instrument Used: 5mm curette Tissue Removed: Non viable tissue and slough into the muscle. Severity: Fat Layer Exposed Amount of bleeding with debridement: Mild Bleeding Controlled with: Pressure and Compression and gauze Patient tolerated procedure: Patient tolerated procedure well Operative Diagnosis: Tissue is macerated surrounding the ulcer. Assessment/Plan Assessment/Plan (1) Pressure sore of left ischium, stage 4: CODE(S): L89.324 - Pressure ulcer of left buttock, stage 4 (2) Right ischial pressure sore, stage 4: CODE(S): L89.314 - Pressure ulcer of right buttock, stage 4 (3) Perineal ulcer: CODE(S): L98.499 - Non-pressure chronic ulcer of skin of other sites with unspecified severity QUALIFIERS: Non-pressure ulcer stage: unspecified non-pressure ulcer stage Qualified Code(s): L98.499 - Non-pressure chronic ulcer of skin of other sites with unspecified severity (4) Paraplegia at T4 level: CODE(S): G82.20 - Paraplegia, unspecified (5) History of tobacco use: CODE(S): Z87.891 - Personal history of nicotine dependence (6) Severe protein-calorie malnutrition: CODE(S): E43 - Unspecified severe protein-calorie malnutrition (7) Decubitus ulcer of trochanteric region of left hip, unstageable: CODE(S): L89.220 - Pressure ulcer of left hip, unstageable PLAN: Plan Patient was evaluated at the wound healing center today. Wound care - Aquacel-Ag covered with gauze/ABD daily to both the left ischial/trochanter ulcer cluster and the right ischial/steffi anal ulcer. Wash both ulcers with soap and water at the time of the dressing changes. Encouraged him to have his nephew who lives with him assist him with the dressing changes. Encourage nutritional supplementation with protein to help the healing process. Swager Operator tried meeting with him today but he had a ride waiting for him and said he would meet with her next month. Prealbumin 22 from 08/02/24. He saw Dr. Calhoun last month who would like to re evaluate him in a month or so. Follow up 4 weeks. Call or come in sooner if develop any concerns.
== END 2024-09-09 23:59 | disposition home or self-care (01) ==
LOC: WC 13:25
PROVIDERS: PCP Internal Medicine; Referring Provider Internal Medicine; Visit Provider Nurse Practitioner Family
DX: L89.314 Pressure ulcer of right buttock, stage 4 (principal); L89.324 Pressure ulcer of left buttock, stage 4; L89.220 Pressure ulcer of left hip, unstageable; G82.20 Paraplegia, unspecified; L98.499 Non-pressure chronic ulcer of skin of other sites with unspecified severity; Z87.891 Personal history of nicotine dependence
CPT/HCPCS: 11043; 11046

== ENCOUNTER 2024-09-27 14:23 | Outpatient (RCR) | payer MEDICARE, MEDICAID, SELFPAY ==
[2024-09-10 00:40] VITALS: BP 139/71; PULSE 83; RESP 16; TEMP 36.8; BMI 19.8
[2024-09-27 14:29] VITALS: BP 137/73; PULSE 100; RESP 18; TEMP 36.4; BMI 19.8
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
--- NOTE | 2024-09-28 09:14 | WC ---
PHOTO 09/27/24 LEFT ISCHIUM
--- NOTE | 2024-09-28 09:15 | WC ---
PHOTO 09/27/24 RIGHT ISCHIUM
--- NOTE | 2024-09-28 09:16 | WC ---
PHOTO 09/27/24 LEFT [facility]
== END 2024-10-10 23:59 | disposition home or self-care (01) ==
LOC: WC 14:23
PROVIDERS: PCP Internal Medicine; Referring Provider Internal Medicine; Visit Provider Nurse Practitioner Family
DX: L89.324 Pressure ulcer of left buttock, stage 4 (principal); L89.314 Pressure ulcer of right buttock, stage 4; L89.220 Pressure ulcer of left hip, unstageable; G82.20 Paraplegia, unspecified; E43 Unspecified severe protein-calorie malnutrition; T24.212A Burn of second degree of left thigh, initial encounter; X12.XXXA Contact with other hot fluids, initial encounter; Z87.891 Personal history of nicotine dependence; Z68.1 Body mass index [BMI] 19.9 or less, adult
CPT/HCPCS: 11042; 11043; 97803

== ENCOUNTER 2024-10-25 14:51 | Outpatient (RCR) | payer MEDICARE, MEDICAID, SELFPAY ==
[2024-10-11 00:22] VITALS: BP 139/71; PULSE 83; RESP 16; TEMP 36.8; BMI 19.8
[2024-10-25 14:55] VITALS: BP 110/67; PULSE 112; RESP 16; TEMP 36.7; BMI 19.8
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
--- NOTE | 2024-10-26 08:55 | WC ---
PHOTO 10/25/24 LEFT ISCHIUM
--- NOTE | 2024-10-26 08:56 | WC ---
PHOTO 10/25/24 RIGHT ISCHIUM
--- NOTE | 2024-10-26 08:56 | WC ---
PHOTO 10/25/24 RIGHT [facility]
== END 2024-11-10 23:59 | disposition home or self-care (01) ==
LOC: WC 14:51
PROVIDERS: PCP Internal Medicine; Referring Provider Internal Medicine; Visit Provider Nurse Practitioner Family
DX: L89.314 Pressure ulcer of right buttock, stage 4 (principal); L89.324 Pressure ulcer of left buttock, stage 4; L89.220 Pressure ulcer of left hip, unstageable; G82.20 Paraplegia, unspecified; L98.499 Non-pressure chronic ulcer of skin of other sites with unspecified severity; Z89.611 Acquired absence of right leg above knee; T24.212A Burn of second degree of left thigh, initial encounter; T79.8XXA Other early complications of trauma, initial encounter; Z79.899 Other long term (current) drug therapy; Z87.891 Personal history of nicotine dependence
CPT/HCPCS: 11042; 11043; 11046; 97803

== ENCOUNTER 2024-11-22 14:49 | Outpatient (RCR) | payer MEDICARE, MEDICAID, SELFPAY ==
[2024-11-11 01:53] VITALS: BP 110/67; PULSE 112; RESP 16; TEMP 36.7; BMI 19.8
[2024-11-22 14:55] VITALS: BP 129/79; PULSE 103; RESP 18; TEMP 36.4; BMI 19.8
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
== END 2024-12-08 23:59 | disposition home or self-care (01) ==
LOC: WC 14:49
PROVIDERS: PCP Internal Medicine; Referring Provider Internal Medicine; Visit Provider Nurse Practitioner Family
DX: L89.314 Pressure ulcer of right buttock, stage 4 (principal); L89.324 Pressure ulcer of left buttock, stage 4; L89.220 Pressure ulcer of left hip, unstageable; G82.20 Paraplegia, unspecified; L98.499 Non-pressure chronic ulcer of skin of other sites with unspecified severity; Z86.14 Personal history of Methicillin resistant Staphylococcus aureus infection; Z87.891 Personal history of nicotine dependence
CPT/HCPCS: 11043; 11046

== ENCOUNTER 2024-11-30 10:47 | Day surgery (SDC) | payer MEDICARE, MEDICAID, SELFPAY ==
--- NOTE | 2024-11-28 15:49 | PAT.ANE_ITS ---
Pre-Assessment Diagnosis/Proposed Procedure Planned Operative Procedure(s): EGD Anesthesia History Anesthesia History - radiology equipment servicer: Anesthesia History - radiology equipment servicer Hx Hospitalization No 11/28/24 12:06 Any Problems With Anesthesia No 11/28/24 12:06 Cholinesterase deficiency No 11/28/24 12:06 You/Your Family Experience No 11/28/24 12:06 fever (hyperthermia) with Relationship Recent Exposure to Contagious No 04/04/24 13:06 Disease Does patient have nerve No 11/28/24 12:06 stimulator Patient instructed to have device shut off --Does patient have Pacemaker or ICD? When Was Last Pacemaker Check QUESTION #4 FULL TEXT: You/Your Family Experience fever (hyperthermia) with Anesthesia Last Oral Intake Last Oral intake: Last Oral Intake NPO since Meds taken in AM with sips of water? Meds patient instructed to take am of surgery PONV PONV - radiology equipment servicer: PONV - radiology equipment servicer Female No 11/28/24 12:06 HX of Motion Sickness No 11/28/24 12:06 HX of N/V After Surgery No 11/28/24 12:06 Non-Smoker Yes 11/28/24 12:06 Duration of Surgery greater No 11/28/24 12:06 than 60 minutes Number of Risk Factors 1 11/28/24 12:06 PONV Score Low Risk 11/28/24 12:06 Height & Weight Height & Weight: Anesthesia: Height & Weight Height 5 ft 11 in 09/27/24 15:19 Respiratory Assessment Respiratory Assessment - radiology equipment servicer: Respiratory Tract Infection Hx - radiology equipment servicer Hx Respiratory Tract Infection No 11/28/24 12:06 STOP Sleep Apnea STOP Sleep Apnea - radiology equipment servicer: STOP Sleep Apnea - radiology equipment servicer Hx Hypertension No 11/28/24 12:06 Hx Sleep Apnea No 11/28/24 12:06 CPAP No 11/28/24 12:06 BIPAP No 11/28/24 12:06 Do you snore loudly (louder No 11/28/24 12:06 than talking or can be heard Do you often feel tired/ Yes 11/28/24 12:06 fatigued/ sleepy during daytime? Has anyone observed you stop No 11/28/24 12:06 breathing during sleep? STOP Results Negative 11/28/24 12:06 QUESTION #5 FULL TEXT : Do you snore loudly (louder than talking or can be heard through closed doors)? 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 Specify any problems Hx of Preganancy in last 3 N/A 11/28/24 12:06 Months Nurse Filling Out Transfusion DSCHRIBER 11/28/24 12:06 & Questions: Date: 11/28/24 11/28/24 12:06 Time: 12:08 11/28/24 12:06 Patient unable to answer at this time (ie. confused, unrespo /Reproduction History /Reproductive History - radiology equipment servicer: /Reproductive Hx- radiology equipment servicer Hx Now No 11/28/24 12:06 Gestational Age (in weeks): EDC: Hx Hx Para Hx Section SAB No 11/28/24 12:06 [facility] Medical History (Updated 11/28/24 @ 12:16 by Annalisa Birmingham) Dressing change Convulsion Injury of back Microcytic anemia Anemia, unspecified Solitary rectal ulcer syndrome Alcohol use Uses wheelchair Former smoker Phantom pain Cardiology follow-up encounter History of echocardiogram Crohn's disease Wears glasses Marijuana use Anxiety Open wound Gastric reflux Weight loss Rectal abnormality Incomplete right bundle branch block Left ischial pressure sore Nonrheumatic mitral (valve) insufficiency Nonrheumatic mitral (valve) prolapse Above-knee amputation of right lower extremity Prostatic hemorrhage Bleeding from left hip wound Chronic osteomyelitis, pelvis MRSA (methicillin resistant Staphylococcus aureus) infection Bacteremia Hematuria Severe protein-calorie malnutrition History of tobacco use Paraplegia at T4 level Scoliosis Stomach ulcer Heart murmur Recurrent infections History of blood clots History of fracture History of back problems Right ischial pressure sore, stage 4 Pseudomonas aeruginosa infection Proteus infection Perineal ulcer History of osteomyelitis History of MRSA infection left ischial pressure sore, stage IV Home Medications ?Medication ?Instructions ?Recorded ?Last Taken ?Type pantoprazole 40 mg tablet,delayed 40 mg PO BID 5 Unknown History release Allergy/AdvReac Type Severity Reaction Status Date / Time cephalexin monohydrate (From Allergy Itching Verified 11/28/24 12:05 Keflex) latex Allergy ONLY IF Verified 11/28/24 12:05 [employer]WELLING [employer]HETER sulfamethoxazole Allergy Hives Verified 11/28/24 12:05 Family History Unknown Breast cancer Surgical History (Updated 11/28/24 @ 12:16 by Annalisa Birmingham) Hx of colonoscopy Hx of above knee amputation History of left below knee amputation History of left below knee amputation H/O ureteroileostomy Social History household members: significant other Smoking Status: Former smoker alcohol intake: current alcohol intake frequency: 3 or more drinks per day Alcohol type: beer substance use type: marijuana Audit: Pertinent Findings Pertinent Findings EKG Perinent findings: June 08, 2020. Sinus tachycardia heart rate at 143 bpm. Possible right intraventricular conduction delay. Poor R wave progression. Echo (EF%) pertinent findings: October 28, 2020. Ejection fraction 60%. PA systolic pressure is 30 mmHg. No aortic stenosis noted. Consult pertinent findings: October 18, 2020. Dr. Mock. 1. Tachycardia-pa tient's tachycardia is possibly somatic interference. No evidence of atrial fibrillation on the Holter. Will check an echo. (See above) Additional pertinent findings: Holter monitor September 30, 2020. Normal sinus rhythm with periods of sinus arrhythmia. Patient had 0.2% PVCs. He had 0.4% of the complexes as supraventricular ectopic beats. No atrial fibrillation was noted. In patient's diary he had multiple symptoms of feeling the rapid heart rate which at times correlated with the scan. Chest pain which did not correlate with the scan. And palpitations which sometimes correlated with the scan. Recommendation Anesthesia Recommendation Anesthesia recommendation: OPTIMIZED for anesthesia
[2024-11-30] VITALS (8 sets, daily range): BP systolic 95–104; BP diastolic 56–69; PULSE 80–105; RESP 16–18; TEMP 36.6–37; O2SAT 97–99; BMI 13.2
--- NOTE | 2024-11-30 11:02 | PCM.HP.STD ---
HPI - General General Date of Admission: 11/30/24 Date of Service: 11/30/24 HPI Narrative RICCARDO NERI, is a 59 M who presents [facility] Medical History Pressure ulcer Injury of back Heartburn Microcytic anemia Anemia, unspecified Solitary rectal ulcer syndrome Alcohol use Uses wheelchair Former smoker Phantom pain Cardiology follow-up encounter History of echocardiogram Crohn's disease Wears glasses Marijuana use Anxiety Open wound Gastric reflux Weight loss Rectal abnormality Incomplete right bundle branch block Left ischial pressure sore Nonrheumatic mitral (valve) insufficiency Nonrheumatic mitral (valve) prolapse Above-knee amputation of right lower extremity Prostatic hemorrhage Bleeding from left hip wound Chronic osteomyelitis, pelvis MRSA (methicillin resistant Staphylococcus aureus) infection Difficulty transferring location Bacteremia Kidney calculi Hematuria Severe protein-calorie malnutrition History of tobacco use Paraplegia at T4 level Scoliosis Stomach ulcer Heart murmur Recurrent infections History of blood transfusion History of blood clots History of UTI History of fracture History of back problems Right ischial pressure sore, stage 4 Pseudomonas aeruginosa infection Proteus infection Urinary tract infection Perineal ulcer History of osteomyelitis History of MRSA infection left ischial pressure sore, stage IV Surgical History Hx of colonoscopy Hx of above knee amputation History of left below knee amputation History of left below knee amputation H/O ureteroileostomy Family History Unknown Breast cancer Social History household members: significant other Smoking Status: Former smoker alcohol intake: current alcohol intake frequency: 3 or more drinks per day Alcohol type: beer substance use type: marijuana HPI HPI Chief Complaint: kidney stones? Details: RICCARDO NERI, is a 59 M who presents to the office today for EGD 04/04/2024 Diffuse severe inflammation characterized by congestion (edema), erosions, friability and linear erosions was found in the entire examined stomach. Impressions : - Normal esophagus. - Chronic bile gastritis. Biopsied. - Chronic duodenitis. Biopsied. Recommendations : - Discharge patient to home. - Resume previous diet. - Continue present medications. - Await pathology results. - Repeat upper endoscopy in 4 months for surveillance. - Use Prilosec (omeprazole) 40 mg PO BID for 12 weeks. - Use sucralfate tablets 1 gram PO QID for 2 weeks. - c/o abdominal pain - left side - thinks scoliosis causing some if this pain - Tylenol for pain - denies any NSAIDS - denies any N/V - urostomy - BM every 1-2 days with digital stimulation - he is an occasional smoker - EtOH - once every 6 months - 1-2c of coffee daily - c/o scoliosis causing pain on left side, hard to get comfortable in any position - denies any melena or hematemesis - denies any changes in health history since last seen ROS Const Constitutional: Positive for fatigue and weight change; No fever(s) ENT ENT: No difficulty swallowing Gastro GI: Positive for abdominal pain, bloating and nausea/dyspepsia; No belching, change in bowel habits, change in stool character, coffee ground emesis, constipation, cramping, diarrhea, heartburn, difficulty swallowing, feeling full early, excessive flatus, incontinent of stools, Vomiting blood/hematemesis, Blood in stool, loose stools, Black,tarry stools, pain with swallowing, vomiting or other Musc Musculoskeletal: Positive for back pain and muscle cramps; No joint pain Skin Skin: No yellowing of the eye or itchy eyes Neuro Neurology: Positive for paralysis Psych Psychiatric: Positive for anxiety and No depression Endo Endocrine: Positive for fatigue and weight change Aller/Imm Allergy/Immunologic: No itchy eyes [place]/Lymp Hematologic/Lymphatic: No easy bleeding or easy bruising Exam Const General: cooperative Nutritional Appearance: thin Orientation: alert and oriented x3 Other: strong tobacco odor HENMT Head: normocephalic Ears: hearing grossly normal bilaterally Nose: external nose normal Teeth and gingiva: poor dentition Eyes General: appearance normal, both eyes and all related structures Conjunctivae: conjunctivae normal Neck Neck: normal visual inspection Resp Effort & Inspection: normal respiratory effort GI Inspection: normal to inspection Auscultation: normal bowel sounds Palpation: soft Rectal Exam: deferred Other: soft, non-distended, no pain with palpation, limited exam with suprapubic cath & sitting up in WC Other: suprapubic cath Musc Musculoskeletal: Yes scoliosis to the left and muscle weakness Neuro General: patient alert and patient oriented x3 Cognition: normal cognition Speech: speech normal Gait: gait assisted Method: wheelchair bound Extrem General: amputation noted Above the knee: bilateral Psych Appearance: grossly normal and disheveled Affect: normal affect Attitude: cooperative Thought Process: normal Thought Content: normal Judgment: judgment good Assessment and Plan Assessment and Plan (1) LUQ pain: Status: Acute (2) Gastritis: Status: Acute Qualifiers: Gastritis type: other gastritis Chronicity: chronic Gastritis bleeding: without bleeding Qualified Code(s): K29.50 - Unspecified chronic gastritis without bleeding Medications: New pantoprazole 40 mg orally twice a day 30 minutes before breakfast and dinner; 60 tabs 2RF Discontinued pantoprazole Discontinued Reason: Order Changed 40 mg PO QDAY Plan 59y/o male presents for consultation with complaints of stomach convulsions for the past few months with PO intake. He reports this is a sharp pain that can last up to 30 minutes and will wake him at HS. He was concerned the pantoprazole was causing abdominal pain and discontinued; however, pain has worsened. He has resumed PPI daily but reports he often forgets to take it. Occasional nausea without emesis. He denies any change in bowel habits or bleeding.EGD was last performed March 2024 and revealed diffuse severe inflammation characterized by congestion (edema), erosions, friability and linear erosions was found in the entire examined stomach. I have educated him of use of PPI, increased dose to BID and scheduled EGD. Patient Instructions: 1. Resume PPI and increase to BID 2. Schedule EGD Plan Details Follow Up: 4 Months Coding Level of Care Code Off vis,est,level 3 Diagnoses LUQ pain R10.12 Other chronic gastritis without hemorrhage K29.50 Gastritis type: other gastritis Chronicity: chronic Gastritis bleeding: without bleeding Clinical Quality Measures Falls Risk Screening/Assistive Devices Have you fallen in the past year?: No 09/20/24 1524 <Electronically signed by Carly MACEDO> Date Carly MACEDO Cosigner Signature: Date (if applicable) CC: ~ [facility] Medical History (Updated 11/28/24 @ 12:16 by Annalisa Birmingham) Dressing change Convulsion Injury of back Microcytic anemia Anemia, unspecified Solitary rectal ulcer syndrome Alcohol use Uses wheelchair Former smoker Phantom pain Cardiology follow-up encounter History of echocardiogram Crohn's disease Wears glasses Marijuana use Anxiety Open wound Gastric reflux Weight loss Rectal abnormality Incomplete right bundle branch block Left ischial pressure sore Nonrheumatic mitral (valve) insufficiency Nonrheumatic mitral (valve) prolapse Above-knee amputation of right lower extremity Prostatic hemorrhage Bleeding from left hip wound Chronic osteomyelitis, pelvis MRSA (methicillin resistant Staphylococcus aureus) infection Bacteremia Hematuria Severe protein-calorie malnutrition History of tobacco use Paraplegia at T4 level Scoliosis Stomach ulcer Heart murmur Recurrent infections History of blood clots History of fracture History of back problems Right ischial pressure sore, stage 4 Pseudomonas aeruginosa infection Proteus infection Perineal ulcer History of osteomyelitis History of MRSA infection left ischial pressure sore, stage IV Home Medications ?Medication ?Instructions ?Recorded ?Last Taken ?Type pantoprazole 40 mg tablet,delayed 40 mg PO BID 11/28/24 Unknown History release Allergy/AdvReac Type Severity Reaction Status Date / Time cephalexin monohydrate (From Allergy Itching Verified 11/28/24 12:05 Keflex) latex Allergy ONLY IF Verified 11/28/24 12:05 INDWELLING CATHETER sulfamethoxazole Allergy Hives Verified 11/28/24 12:05 Family History Unknown Breast cancer Surgical History (Updated 11/28/24 @ 12:16 by Annalisa Birmingham) Hx of colonoscopy Hx of above knee amputation History of left below knee amputation History of left below knee amputation H/O ureteroileostomy Social History household members: significant other Smoking Status: Former smoker alcohol intake: current alcohol intake frequency: 3 or more drinks per day Alcohol type: beer substance use type: marijuana ROS Constitutional Constitutional: Denies fatigue, fever(s), poor appetite, weight gain or weight loss Gastrointestinal Gastrointestinal: Denies belching, bloating, change in bowel habits, change in stool character, chewing difficulty, coffee ground emesis, constipation, cramping, diarrhea, dyspepsia, dysphagia, early satiety, excessive flatus, fecal incontinence, heartburn, hematemesis, hematochezia, hemorrhoids, loose stools, melena, nausea, odynophagia, rectal bleeding, tenesmus, vomiting or weight changes Physical Exam Const alert and oriented x3 HEENT normocephalic Eyes EOMs intact bilaterally Chest Chest Narrative: Severe kyphosis Cardio regular rate GI GI Narrative: Abdomen with urostomy
--- NOTE | 2024-11-30 11:30 | EGD_PTH ---
PATIENT: RICCARDO NERI LOC: EN U#:[id number] AGE/SX: 59/M ROOM: RE11/30/[address]: Dr. Luis Enrique Sanabria DO : 1965 BED: DIS: 11/30/2024 SPEC #: [id number] RECD: 11/30/24 13:07 STATUS: EMY JOAQUIN #: [id number] GERMAIN: 11/30/24 11:[address]: Luis Enrique Sanabria DEPT: SURGICAL PATHOLOGY RECD BY: Erick Collazo ENTERED: 11/30/24 13:28 SP TYPE: EGD BIOPSY MARCIE DR: Dr. Rayo Jose MD Tissues: A - Duodenum, NOS B - Gastric mucous membrane C - Esophagus, NOS Procedures: Special Stain Group I Surgery Specimen Level IV Alcian Blue/PAS (control) HEADER OPERATION: EGD PRE-OP DIAGNOSIS: Left upper quadrant pain, gastritis TISSUE SUBMITTED: A- Duodenum biopsy, B- Gastric antrum biopsy, C- Distal esophagus biopsy MICROSCOPIC DIAGNOSIS A. Duodenum, biopsy: A fragment of duodenal mucosa, no pathologic diagnosis. B. Gastric antrum, biopsy: Mild gastritis. See microscopic description and comment. C. Distal esophagus, biopsy: Fragments of gastric mucosa with chronic inflammation. Intestinal metaplasia (goblet cell metaplasia) not identified. See comment. 12/01/2024 COMMENT B. The results of immunohistochemistry for Helicobacter pylori will be reported separately ([id number]). C. Alcian blue/PAS stain with matched control is used in the evaluation of the specimen. MICROSCOPIC DESCRIPTION Slides are reviewed. B. The specimen shows fragments of gastric mucosa with chronic inflammatory cell infiltrates in the lamina propria consisting of lymphocytes and plasma cells, consistent with mild chronic gastritis. Focal mucosal congestion and hemorrhage are also noted. GROSS DESCRIPTION A. Received in fixative is one container labeled with the patient's name and designated Duodenum biopsy. The specimen consists of one irregular fragment of light infante soft tissue that measures 0.7 x 0.5 x 0.1 cm. The specimen is totally submitted in one cassette. B. Received in fixative is one container labeled with the patient's name and designated Gastric antrum biopsy. The specimen consists of two irregular fragments of light infante soft tissue that in aggregate measure 0.7 x 0.6 x 0.1 cm. The specimen is totally submitted in one cassette. C. Received in fixative is one container labeled with the patient's name and designated Distal esophagus biopsy. The specimen consists of two irregular fragments of light infante soft tissue that in aggregate measure 0.9 x 0.5 x 0.2 cm. The specimen is totally submitted in one cassette. 11/30/2024 TC:3 CPT:59449e7,69149
--- NOTE | 2024-11-30 11:30 | IMM_PTH ---
PATIENT: RICCARDO NERI LOC: EN U#:[id number] AGE/SX: 59/M ROOM: RE11/30/[address]: Dr. Luis Enrique Sanabria DO : 1965 BED: DIS: 11/30/2024 SPEC #: [id number] RECD: 11/30/24 13:38 STATUS: EMY REShawna #: [id number] GERMAIN: 11/30/24 11:[address]: Luis Enrique Sanabria DEPT: IMMUNOHISTOCHEMISTRY RECD BY: Mike Fisher ENTERED: 11/30/24 13:39 SP TYPE: IMMUNO OTHR DR: Dr. Rayo Jose MD Tissues: B - Gastric mucous membrane Procedures: H Pylori (initial) PHYSICIAN & INSTITUTION [place] [id number] SPECIMEN INFORMATION: Tissue Source: B- Gastric antrum biopsy Clinical Info: Left upper quadrant pain, gastritis Specimen Number: [id number] CPT code: 11974 METHODOLOGY: Deparaffinized sections of prefer/formalin-fixed tissue or PAP/DQ stained slides are incubated with monoclonal/polyclonal antibodies/oligonucleotide probes. Localization is made via biotin free immunoperoxidase method. Appropriate controls are performed and reacted as expected. Results on target cell population are indicated in the following table: RESULTS: ANTIBODY / CLONE RESULT Block B H Pylori (polyclonal) negative These tests were developed and their performance characteristics determined by [facility]. They may not have been cleared or approved by the U.S. Food and Drug Administration. The FDA has determined that such clearance or approval is not necessary. The above immunohistochemical/dualISH markers are ordered and reviewed by the Pathologist. INTERPRETATION: B. Gastric antrum, biopsy: Negative for Helicobacter pylori organisms. 12/01/2024
--- NOTE | 2024-11-30 11:40 | PRE.ANES_ITS ---
ASA Classification* ASA Classification ASA Classification: 3 Assessment & Plan Anesthesia* Anesthesia Assessment Anesthesia Assessment: Discussed sedation and/or anesthesia options, risks, benefits, and alternatives with patient/parents/legal guardian/POA. Questions invited. The patient/parents/legal guardian/POA seems to understand and agrees to proceed with anesthesia plan. Reviewed the physical assessment, medical history, allergy history and patient home medications list prior to surgery/procedure/anesthetic and documented any changes. Performed airway and anesthesia risk assessments. Anesthesia Type Anesthesia Type: MAC History Source History Obtained from:: Patient and Chart Anesthesia Focused Assessment* Temperature: 98.6 F Pulse Rate: 105 Blood Pressure: 104/69 Respiratory Rate: 16 Pulse Ox: 99 Oxygen Delivery Method: Room Air Airway Assessment Mouth opens: 2 cm Mallampati Score: III Teeth Condition: Intact and Chipped/Broken Neck Range of motion (ROM): Limited ROM Focused Labs Anesthesia Preop lab: CBC WBC 9.3 K/mm3 (4.4-11.0) 08/02/24 14:44 08/02/24 RBC 4.81 M/mm3 (4.6-6.2) 08/02/24 14:44 08/02/24 Hgb 14.0 g/dL (13.0-16.5) 08/02/24 14:44 08/02/24 Hct 44.5 % (40-54) 08/02/24 14:44 08/02/24 Plt Count 264 K/mm3 (150-450) 08/02/24 14:44 08/02/24 CHEMISTRY Potassium 4.2 mmol/L (3.5-5.1) 08/02/24 14:44 08/02/24 Sodium 142 mmol/L (136-145) 08/02/24 14:44 08/02/24 Magnesium 1.6 mg/dL (1.6-2.6) 11/29/23 13:41 11/29/23 Phosphorus 2.9 mg/dL (2.5-4.9) 11/30/22 12:35 11/30/22 BUN 26 mg/dL (7-18) H 08/02/24 14:44 08/02/24 Creatinine 0.56 mg/dL (0.70-1.30) L 08/02/24 14:44 Glucose 95 mg/dL (74-106) 08/02/24 14:44 08/02/24 POC Glucose 156 mg/dL (70-110) H 11/07/19 05:49 11/07/19 TSH 1.48 uIU/mL (0.358-3.74) 02/22/20 12:09 COAG PT 14.2 SECONDS (11.7-14.9) 11/30/22 12:35 Pre-Assessment Diagnosis/Proposed Procedure Planned Operative Procedure(s): EGD Anesthesia History Anesthesia History - director of special education: Anesthesia History - director of special education Hx Hospitalization No 11/28/24 12:06 Any Problems With Anesthesia No 11/28/24 12:06 Cholinesterase deficiency No 11/28/24 12:06 You/Your Family Experience No 11/28/24 12:06 fever (hyperthermia) with Relationship Recent Exposure to Contagious No 11/30/24 11:03 Disease Does patient have nerve No 11/28/24 12:06 stimulator Patient instructed to have device shut off --Does patient have Pacemaker No 11/30/24 11:03 or ICD? When Was Last Pacemaker Check QUESTION #4 FULL TEXT: You/Your Family Experience fever (hyperthermia) with Anesthesia Last Oral Intake Last Oral intake: Last Oral Intake NPO since 23:00 11/30/24 11:03 Meds taken in AM with sips of Yes 11/30/24 11:03 water? Meds patient instructed to PROTONIX DOS 11/30/24 11:03 take am of surgery PONV PONV - director of special education: PONV - director of special education Female No 11/28/24 12:06 HX of Motion Sickness No 11/28/24 12:06 HX of N/V After Surgery No 11/28/24 12:06 Non-Smoker Yes 11/28/24 12:06 Duration of Surgery greater No 11/28/24 12:06 than 60 minutes Number of Risk Factors 1 11/28/24 12:06 PONV Score Low Risk 11/28/24 12:06 Height & Weight Height & Weight: Anesthesia: Height & Weight Height 5 ft 11 in 11/30/24 11:03 Weight: 43.091 kg 11/30/24 11:03 Body Mass Index (BMI) 13.2 11/30/24 11:03 Respiratory Assessment Respiratory Assessment - director of special education: Respiratory Tract Infection Hx - director of special education Hx Respiratory Tract Infection No 11/28/24 12:06 STOP Sleep Apnea STOP Sleep Apnea - director of special education: STOP Sleep Apnea - director of special education Hx Hypertension No 11/28/24 12:06 Hx Sleep Apnea No 11/28/24 12:06 CPAP No 11/28/24 12:06 BIPAP No 11/28/24 12:06 Do you snore loudly (louder No 11/28/24 12:06 than talking or can be heard Do you often feel tired/ Yes 11/28/24 12:06 fatigued/ sleepy during daytime? Has anyone observed you stop No 11/28/24 12:06 breathing during sleep? STOP Results Negative 11/28/24 12:06 QUESTION #5 FULL TEXT : Do you snore loudly (louder than talking or can be heard through closed doors)? Tobacco Use History Tobacco Use History - director of special education: Tobacco Use History - director of special education Tobacco Use Smoking Status Former smoker 11/28/24 12:06 Hx Tobacco Use No 11/28/24 12:06 Years Smoking Packs Smoked per Day Smoking Cessation Date was Yes - quit smoking within 15 11/28/24 12:06 within the last 15 years years Hx Smoking Cessation Date 10/11/15 11/28/24 12:06 Hx Smoking Cessation No 11/28/24 12:06 Counseling Hematologic Medial History Hematologic Hx - director of special education: Hematologic Medical Hx - inspector packer Hx of Blood Transfusion No 11/28/24 12:06 Hx of Transfusion in last 3 No 11/28/24 12:06 Months Date of Last Transfusion (if within last 3 months) Ever experience any problems No 11/28/24 12:06 with transfusion(s)? Specify any problems Hx of Preganancy in last 3 N/A 11/28/24 12:06 Months Nurse Filling Out Transfusion DSCHRIBER 11/28/24 12:06 & Questions: Date: 11/28/24 11/28/24 12:06 Time: 12:08 11/28/24 12:06 Patient unable to answer at this time (ie. confused, unrespo /Reproduction History /Reproductive History - director of special education: /Reproductive Hx- director of special education Hx Now No 11/28/24 12:06 Gestational Age (in weeks): EDC: Hx Hx Para Hx Section SAB No 11/28/24 12:06 [facility] Medical History (Updated 11/28/24 @ 12:16 by Annalisa Birmingham) Dressing change Convulsion Injury of back Microcytic anemia Anemia, unspecified Solitary rectal ulcer syndrome Alcohol use Uses wheelchair Former smoker Phantom pain Cardiology follow-up encounter History of echocardiogram Crohn's disease Wears glasses Marijuana use Anxiety Open wound Gastric reflux Weight loss Rectal abnormality Incomplete right bundle branch block Left ischial pressure sore Nonrheumatic mitral (valve) insufficiency Nonrheumatic mitral (valve) prolapse Above-knee amputation of right lower extremity Prostatic hemorrhage Bleeding from left hip wound Chronic osteomyelitis, pelvis MRSA (methicillin resistant Staphylococcus aureus) infection Bacteremia Hematuria Severe protein-calorie malnutrition History of tobacco use Paraplegia at T4 level Scoliosis Stomach ulcer Heart murmur Recurrent infections History of blood clots History of fracture History of back problems Right ischial pressure sore, stage 4 Pseudomonas aeruginosa infection Proteus infection Perineal ulcer History of osteomyelitis History of MRSA infection left ischial pressure sore, stage IV Home Medications ?Medication ?Instructions ?Recorded ?Last Taken ?Type pantoprazole 40 mg tablet,delayed 40 mg PO BID 5 Unknown History release Allergy/AdvReac Type Severity Reaction Status Date / Time cephalexin monohydrate (From Allergy Itching Verified 11/28/24 12:05 Keflex) latex Allergy ONLY IF Verified 11/28/24 12:05 INDWELLING CATHETER sulfamethoxazole Allergy Hives Verified 11/28/24 12:05 Family History Unknown Breast cancer Surgical History (Updated 11/28/24 @ 12:16 by Annalisa Birmingham) Hx of colonoscopy Hx of above knee amputation History of left below knee amputation History of left below knee amputation H/O ureteroileostomy Social History household members: significant other Smoking Status: Former smoker alcohol intake: current alcohol intake frequency: 3 or more drinks per day Alcohol type: beer substance use type: marijuana Review of Systems (Anesthesia) ROS Narrative System reviewed and no additional complaints, except as documented.
--- NOTE | 2024-11-30 12:06 | OP.EGD_ITS ---
Patient Name: Pernell Heath Procedure Date: 11/30/2024 11:42 AM Date of : 1965 Age: 59 Procedure: Upper GI endoscopy Indications: Epigastric abdominal pain, Functional Dyspepsia, Dysphagia Providers: Luis Enrique Sanabria DO Referring MD: Rayo Jose MD Medicines: Monitored Anesthesia Care Patient Profile: This is a 59 year old male. Refer to note in patient chart for documentation of history and physical. Patient has symptoms of chronic epigastric abdominal pain, acute dysphagia and acute heartburn. Complications: No immediate complications. Procedure: Pre-Anesthesia Assessment: - Prior to the procedure, a History and Physical was performed, and patient medications and allergies were reviewed. The patient is competent. The risks and benefits of the procedure and the sedation options and risks were discussed with the patient. All questions were answered and informed consent was obtained. Patient identification and proposed procedure were verified by the physician in the pre-procedure area. Mental Status Examination: alert and oriented. Airway Examination: normal oropharyngeal airway and neck mobility. Respiratory Examination: clear to auscultation. CV Examination: normal. Prophylactic Antibiotics: The patient does not require prophylactic antibiotics. Prior Anticoagulants: The patient has taken no anticoagulant or antiplatelet agents. ASA Grade Assessment: II - A patient with mild systemic disease. After reviewing the risks and benefits, the patient was deemed in satisfactory condition to undergo the procedure. The anesthesia plan was to use monitored anesthesia care (MAC). Immediately prior to administration of medications, the patient was re-assessed for adequacy to receive sedatives. The heart rate, respiratory rate, oxygen saturations, blood pressure, adequacy of pulmonary ventilation, and response to care were monitored throughout the procedure. The physical status of the patient was re-assessed after the procedure. After obtaining informed consent, the endoscope was passed under direct vision. Throughout the procedure, the patient's blood pressure, pulse, and oxygen saturations were monitored continuously. The gastroscope was introduced through the mouth, and advanced to the second part of duodenum. The upper GI endoscopy was accomplished without difficulty. Scope In: 11:52:48 AM Scope Out: 11:59:54 AM Total Procedure Duration Time 0 hours 7 minutes 6 seconds Findings: One benign-appearing, intrinsic moderate stenosis was found 20 to 25 cm from the incisors. This stenosis measured 6 cm (in length). The stenosis was traversed. A guidewire was placed and the scope was withdrawn. Dilation was performed with a Savary dilator with no resistance at 57 Fr. The dilation site was examined following endoscope reinsertion and showed moderate mucosal disruption. Estimated blood loss was minimal. Patchy mildly erythematous mucosa without bleeding was found in the gastric body. Biopsies were taken with a cold forceps for histology. Verification of patient identification for the specimen was done. Biopsies were taken with a cold forceps for Helicobacter pylori testing. Verification of patient identification for the specimen was done. Estimated blood loss was minimal. No gross lesions were noted in the duodenal bulb. Impression: - Benign-appearing esophageal stenosis. Dilated. - Erythematous mucosa in the gastric body. Biopsied. - No gross lesions in the duodenal bulb. Recommendation: - Discharge patient to home. - Resume previous diet. - Continue present medications. Procedure Code(s): --- Professional --- 84659, Esophagogastroduodenoscopy, flexible, transoral; with insertion of guide wire followed by passage of dilator(s) through esophagus over guide wire 97729, 59,51, Esophagogastroduodenoscopy, flexible, transoral; with biopsy, single or multiple CPT copyright 2021 [employer]. All rights reserved. The codes documented in this report are preliminary and upon senior sql server developer review may be revised to meet current compliance requirements. Luis Enrique Sanabria DO 11/30/2024 12:06:47 PM This report has been signed electronically. Number of Addenda: 0 Note Initiated On: 11/30/2024 11:42 AM
--- NOTE | 2024-11-30 12:07 | OP.CCLET_ITS ---
11/30/2024 Rayo Jose MD [address] [place] [address] [place] [address] Re : Upper GI endoscopy procedure for Pernell Heath Dear Dr. Jose This procedure was performed on November. My impressions and recommendations are as follows: Impressions : - Benign-appearing esophageal stenosis. Dilated. - Erythematous mucosa in the gastric body. Biopsied. - No gross lesions in the duodenal bulb. Recommendations : - Discharge patient to home. - Resume previous diet. - Continue present medications. My findings are described in the full procedure note, which is enclosed. If I can be of further assistance, please feel free to contact me at . Sincerely, Luis Enrique Sanabria, 11/30/2024 12:06:47 PM This report has been signed electronically.
--- NOTE | 2024-11-30 12:11 | PCM.POST.ANE ---
Anesthesia: Postop Eval I Current Vital Signs Temperature: 98 F Pulse Rate: 95 Blood Pressure: 102/59 Respiratory Rate: 16 Pulse Ox: 99 Oxygen Delivery Method: Room Air Assessment Airway patent: Yes Spontaneous unlabored respirations: Yes Mental status: Awake and Calm nausea: No Vomiting: No Anesthesia Complication: No Fluid Hydration Crystalloid volume administer (ml): 30 Total IV fluid infused: 30 Progress Note Anesthesia document: Postop Eval 1 completed: Yes
--- NOTE | 2024-11-30 15:03 | PCM.POSTANE2 ---
Anesthesia Postop Eval I Sum Postop Eval Completion status Anesthesia document: Postop Eval 1 completed: Yes Anesthesia Postop Eval I Summary Anesthesia Postop Eval I Summary: Anesthesia Postop Eval I: Assessment Summary Airway patent Yes 11/30/24 12:12 [email or web address] Spontaneous unlabored Yes 11/30/24 12:12 [email or web address] respirations Mental status Awake,Calm 11/30/24 12:12 [email or web address] nausea No 11/30/24 12:12 [email or web address] Vomiting No 11/30/24 12:12 [email or web address] Anesthesia Postop Eval I: Fluid Summary Crystalloid volume administer 30 11/30/24 12:12 [email or web address] (ml) Colloids volume administered ( ml) Blood Product volume administered (ml) Total IV fluid infused 30 11/30/24 12:12 [email or web address] Anesthesia Postop Eval I: Summary Notes Anesthesia Complication No 11/30/24 12:12 [email or web address] Anesthesia Complication Comment: Post-operative progress note Anesthesia: Postop Eval II Evaluation Mental status: Awake and Calm Pain Level: 1 nausea: No Vomiting: No Complications Anesthesia Complication: No
== END 2024-11-30 13:10 | disposition home or self-care (01) ==
LOC: EN 10:49 → AC 10:49
PROVIDERS: PCP Internal Medicine; Referring Provider Internal Medicine; Visit Provider Internal Medicine Gastroenterology
PROC: 0DJ08ZZ Inspection of Upper Intestinal Tract, Via Natural or Artificial Opening Endoscopic (ICD-10-PCS; CPT 43235; principal; 2024-11-30 11:25)
DX: K22.2 Esophageal obstruction (principal); K29.50 Unspecified chronic gastritis without bleeding; Z79.899 Other long term (current) drug therapy; Z87.891 Personal history of nicotine dependence
CPT/HCPCS: 43248; 43239; 88305; 88312; 88342; A4216; C1769; J2405

== ENCOUNTER 2024-12-20 13:38 | Outpatient (RCR) | payer MEDICARE, MEDICAID, SELFPAY ==
[2024-12-09 01:11] VITALS: BP 129/79; PULSE 103; RESP 18; TEMP 36.4; BMI 19.8
[2024-12-20 14:08] VITALS: BP 121/65; PULSE 95; RESP 18; TEMP 36.7; BMI 19.8
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
== END 2025-01-08 23:59 | disposition home or self-care (01) ==
LOC: WC 13:38
PROVIDERS: PCP Internal Medicine; Referring Provider Internal Medicine; Visit Provider Nurse Practitioner Family
DX: L89.314 Pressure ulcer of right buttock, stage 4 (principal); L89.324 Pressure ulcer of left buttock, stage 4; G82.20 Paraplegia, unspecified; L98.499 Non-pressure chronic ulcer of skin of other sites with unspecified severity; Z79.899 Other long term (current) drug therapy; Z87.891 Personal history of nicotine dependence; Z86.14 Personal history of Methicillin resistant Staphylococcus aureus infection
CPT/HCPCS: 11043

== ENCOUNTER → 2025-01-02 | Outpatient (CLI) | payer MEDICARE, MEDICAID, SELFPAY ==
--- NOTE | 2025-01-02 10:31 | US_ITS ---
PROCEDURE: ABDOMEN LIMITED 01/02/2025 REASON FOR EXAM: 59-year-old male, abdominal pain x1 year. COMPARISON: CT abdomen pelvis 12/15/2023. FINDINGS: Liver: Grossly normal size and echotexture. The bile ducts are within normal limits. The main portal vein is patent with normal direction of flow. Gallbladder: The gallbladder is normal in size measuring 4.8 cm. Negative Patel's sign. No pericholecystic fluid. There is a single stone within the gallbladder neck measuring 2.3 x 1.3 x 1.4 cm. Common bile duct: Normal measuring 0.4 cm. Pancreas: Obscured by bowel gas. Other: Visualized portions of the right kidney are unremarkable. No right upper quadrant ascites. US/Abdomen Limited IMPRESSION: Cholelithiasis without evidence of acute cholecystitis. Reading Location: [facility]
== END | disposition home or self-care (01) ==
LOC: US 10:30
PROVIDERS: PCP Internal Medicine; Referring Provider Nurse Practitioner Acute Care; Visit Provider Nurse Practitioner Acute Care
DX: R10.11 Right upper quadrant pain (principal); R10.12 Left upper quadrant pain
CPT/HCPCS: 76705

== ENCOUNTER 2025-01-15 13:07 | Outpatient (RCR) | payer MEDICARE, MEDICAID, SELFPAY ==
[2025-01-09 00:45] VITALS: BP 121/65; PULSE 95; RESP 18; TEMP 36.7; BMI 19.8
[2025-01-15 13:12] VITALS: BP 127/70; PULSE 88; RESP 16; TEMP 36.7; BMI 19.8
--- NOTE | 2025-01-15 13:54 | LES_PTH ---
PATIENT: RICCARDO NERI LOC: U#:[id number] AGE/SX: 59/M ROOM: RE01/15/[address]: Dr. Piero Calhoun MD : 1965 BED: DIS: 02/07/2025 SPEC #: [id number] RECD: 01/16/25 10:30 STATUS: EMY NUÑEZ #: [id number] GERMAIN: 01/15/25 13:[address]: Piero Calhoun DEPT: SURGICAL PATHOLOGY RECD BY: Mike Fisher ENTERED: 01/16/25 10:30 SP TYPE: Lesion OTHR DR: Dr. Rayo Jose MD Tissues: A - Skin of buttock, NOS Procedures: Special Stain Group I Surgery Specimen Level IV GMS Stain (control) HEADER OPERATION: Tissue excision from left ischial ulcer PRE-OP DIAGNOSIS: Non-healing chronic ulcer TISSUE SUBMITTED: A- Tissue biopsy left ischial ulcer MICROSCOPIC DIAGNOSIS A. 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 * A PASD stain for fungal organisms is pending and will be reported in an addendum. MICROSCOPIC DESCRIPTION Slides are reviewed. GROSS DESCRIPTION A. Received in formalin in a container labeled with the patient's name, date of , and L ischial biopsy is an unoriented and irregular portion of white-mayfield, indurated soft tissue measuring 0.7 x 0.6 x 0.3 cm. No distinct margin is grossly recognized. The specimen is trisected to reveal homogenous infante-mayfield, smooth surfaces. No ulcerative lesion is identified. Submitted entirely in A1. [facility] 01-16-2025 CPT:34511, 99783 ADDENDUM ADDENDUM ADDENDUM ADDENDUM ADDENDUM ADDENDUM ADDENDUM ADDENDUM ADDENDUM ADDENDUM ADDENDUM 01/31/2025 10:05 ADDENDUM 01/31/2025 10:05 ADDENDUM 01/31/2025 10:05 ADDENDUM 01/31/2025 10:05 ADDENDUM 01/31/2025 10:05 This addendum is to report the findings of the PASD special stain: A. The PASD special stain is negative for fungal organisms. All matched controls reacted appropriately. These tests were developed and their performance characteristics determined by [facility]. They may not have been cleared or approved by the U.S. Food and Drug Administration. The FDA has determined that such clearance or approval is not necessary. The above immunohistochemical/dualISH markers are ordered and reviewed by the Pathologist.
--- NOTE | 2025-01-15 14:57 | PN.PCM_ITS ---
History of Present Illness Date of Service: 01/15/25 Chief Complaint: Bilateral ischial pressure sores, Stage IV. History of Wound: Surgery 04/08/20 - 1. Excision bleeding right ischial/perineal pressure sore, Stage IV. 2. Control of prostatic bleeding with electrocautery and Surgicel hemostat. Wound Care - Left ischial and right ischial ulcers are moistened Promogran topped with ABD daily. Wash both ulcers with soap and water at the time of the dressing change. Left ischial ulcer culture 12/28/22 positive for MRSA, Staphylococcus haemolyticus, Corynebacterium striatum, Proteus mirabilus, and Streptococcus group F. He was treated with Augmentin and Doxycycline. Wound culture from 03/02/22 positive for Pseudomonas aeroginosa, Morganella morganii sp sibonii, and Corynebacterium. Due to his allergies and the the sensitivity of the cultures, patient was referred to ID, who placed him on Augmentin and Cipro, which he currently is on and is tolerating. Wound culture from 01/20/21 positive for Proteus mirabilis, Cornybacterium minutissium and Bacteroides fragilis. He was referred to ID for antibiotic management, which he was placed on Cefdinir, Doxycycline and Flagyl for 10 days. Patient has long standing bilateral ischial pressure sores, Stage IV, with the left side extending to the femoral head and the right side extending to the perineal area and the prostate. Surgery would entail quite extensive excision with amputations at a tertiary center. Patient does not want to pursue any heroic surgeries at this time since it is not a guarantee his pressure issues won't recur. With aggressive amputations, his already tenuous balance would be even more disrupted. At the present time, we are providing conservative care on a monthly basis. He stated his right leg gets in the way when transferring. He underwent a right AKA on 06/12/20 in [place]. Wound culture was done on 04/22/20. It showed Morganella morganii, Pseudomonas aeroginosa, Streptococcus group F, and Bacteroides fragilis. He has a lot of antibiotic allergies. His only real option is IV antibiotics. Dr. Chester also saw him at the [facility] and felt the wounds were colonized and held off on antibiotics at this time. If his clinical situation were to change, then would re-evaluate him for IV antibiotics at that time. Wound culture from 11/01/20 was positive for MRSA, E. coli, Proteus Mirabilis. He was treated with Augmentin and doxycycline. He had a cystectomy and a partial prostatectomy by Dr. Lala at [facility] on 08/04/22. He states he is feeling better than he was before having his bladder removed. 17 July 2024: Today he denies any fever, chills or nausea and vomiting. Doing well overall. Reports that he is consistent with his wound care. Reports that he wants to see a spine surgeon and needs a referral for evaluation of his kyphosis. There is a spine surgeon in [place] that he would like to go to for a second opinion (Dr. Doty saw the patient in did not think he was a good surgical candidate at this time). Patient believes that his most important health issue is his scoliosis and he would like this corrected first. Of note patient has urostomy, but he manages his bowel movements but digital decompaction (no colostomy) Subjective Subjective Current encounter, 15 January 2025: Patient reports seeing spine surgeon in [place] who suggested that the scoliosis was not operable. He has been doing Tram for wound care to the left trochanteric and the right ischial wounds. He is interested in workup for potential reconstruction. Of note patient lives at home with his nephew in a house that they own just outside of [place]. Patient smokes 1 pack of cigarettes per week for his anxiety and vapes from time to time with vapes that do not have nicotine. I discussed with him smoking cessation and the negative effects of wound healing from nicotine and cigarettes. I talked him about smoking cessation with Chantix and he does not want to try that. Objective Data Objective Data Vital Signs: Vital Signs Temp Pulse Resp BP O2 Del Method 98.0 F 88 16 127/70 H Room Air 01/15/25 13:12 01/15/25 13:12 01/15/25 13:12 01/15/25 13:12 01/15/25 13:12 Oxygen Delivery Method Room Air Weight: 99 lb 15.992 oz Body Mass Index (BMI) 19.8 Charges/Coding Procedures Integumentary Add On Codes: 91156 Manisha musc/fascia add-on Multi Select Codes Integumentary Integumentary CPT Codes: 79971 Manisha subq tissue 20 sq cm/< and 07648 Manisha musc/fascia 20 sq cm/< Physical Exam Narrative Right ischial wound that is down to subcutaneous tissue/muscle and is 2 x 0.4 cm and it is 0.3 cm deep. no signs of surrounding infection. Left trochanteric wound with some exposure of bone at the superior aspect of the wound with muscle/subcutaneous tissue over the inferior portions of the wound. No signs of surrounding acute infection. The wound measures 6 x 4.5 cm and is 0.6 cm deep. Some green tinge to the tissue suggestive of Pseudomonas colonization. There is some tissue at the superior aspect of the wound with a cauliflower appearance indicating a biopsy. Const alert and oriented x3 HEENT normocephalic Eyes EOMs intact bilaterally Chest Chest Narrative: Severe kyphosis Cardio regular rate GI GI Narrative: Abdomen with urostomy Debridement Note Debridement Note Wound debrided: Left trochanteric wound (6 x 4.5 cm) Laterality: Left Wound Grade/Stage: For Type of Debridement: Excisional debridement Anesthesia Used: 4% Lidocaine Solution Depth: to muscle Percentage of wound debrided: 100 Instrument Used: 7mm curette Tissue Removed: Necrotic exudate, fascia and biofilm at the layer of the muscle and fascia Severity: Necrosis of Muscle Amount of bleeding with debridement: Moderate Bleeding Controlled with: Compression and gauze Patient tolerated procedure: Patient tolerated procedure well Debridement Free Text: In addition to the above-noted debridement, a 5 mm punch biopsy was taken (alcohol swab used to sterilize the area) around the edge of the wound the superior aspect. Post-Debridement Measurements and Additional Note: Post-Debridement Measurements/Treatment [facility] Nurse 1 - General Ulcer Assessment Start: 01/15/25 13:11 Freq: Status: Active Protocol: NIKA.LOWEXT Activity Type Activity Date Activity User E-sign Co-sign Detail Recorded Client Recorded Date Recorded By Document 01/15/25 13:12 RADHA [id number] 01/15/25 13:23 KW 01/15/25 13:12 - Today's Visit Information Type of service Follow-up Visit (Physician/BUSINESS EXCELLENCE LEADER ) Arrival Mode Wheelchair Patient Identification Verified (Name & Yes ) Height and Weight Body Mass Index (BMI) 19.8 BMI Classification Normal Vital Signs Temperature (97.8 F-99.1 F) 98.0 F Temperature Source Temporal Pulse Rate (60-100) 88 Pulse Location Monitor Respiratory Rate (12-18) 16 Respiratory rate source Observation Oxygen Delivery Method Room Air Blood Pressure (90/60-120/80) 127/70 H Blood Pressure Mean (mm Hg) 89 Source Monitor Position Sitting Blood Pressure Location Left Arm History Since Last Visit- (Skip if this is Patient's initial visit) Have you changed medications since your No last visit? Any new allergies or adverse reactions No Had a fall/change in ADL's that may No increase risk of falls Signs or symptoms of abuse and/or No neglect since last visit Have you been in the hospital since your No last visit? Has dressing in place as prescribed Yes Has compression in place as prescribed N/A Has offloadiing in place as prescribed N/A Experienced any changes in pain level or No management Left Footwear Regular Shoe Right Footwear Regular Shoe Pain Scale: 0-10 Numeric Is Patient Pain Free? Yes WC - Nurse 1 - General Ulcer Measurement Start: 01/15/25 13:11 Freq: Status: Active Protocol: Activity Type Activity Date Activity User E-sign Co-sign Detail Recorded Client Recorded Date Recorded By Document 01/15/25 13:12 [id number] 01/15/25 13:23 KW 01/15/25 13:12 Wound Center Nurse 1 #8 L Ischium cluster -Current Size (cm) - Length 2 -Current Size (cm) - Width 2 -Current Size (cm) - Depth 0.1 -Total Square Cm 4 -Date of Last Picture (Recall this 01/15/25 field) -Exudate Amt None Present -Wound Margin Distinct, Outline Attached -Granulation Amt Large (67-100%) -Granulation Quality Pajonal -Necrosis Amt Small (1-33%) -Necrotic Tissue Type Adherent Slough -Texture (Steffi-wound Skin Appearance) Assessed -Moisture (Steffi-wound Skin Appearance) Assessed -Color (Steffi-wound Skin Appearance) Assessed -Temperature (Stefif-wound Skin No Abnormality Appearance) (Pt Warm) -Tenderness on Palpation (Steffi-wound No Skin Appearance) -Ulcer Cleansing Soap and Water -Foul Odor after Cleansing No -Anesthetic Used 5% Lidocaine Gel #7 R Ischium cluster -Current Size (cm) - Length 4.5 -Current Size (cm) - Width 4.5 -Current Size (cm) - Depth 0.1 -Total Square Cm 20.25 -Date of Last Picture (Recall this 01/15/25 field) -Exudate Amt Small -Exudate Type Serosanguineous -Wound Margin Distinct, Outline Attached -Granulation Amt Large (67-100%) -Granulation Quality Pale,Pajonal -Necrosis Amt Small (1-33%) -Necrotic Tissue Type Adherent Slough -Texture (Steffi-wound Skin Appearance) Assessed -Moisture (Steffi-wound Skin Appearance) Assessed -Color (Steffi-wound Skin Appearance) Assessed -Temperature (Steffi-wound Skin No Abnormality Appearance) (Pt Warm) -Tenderness on Palpation (Steffi-wound No Skin Appearance) -Ulcer Cleansing Soap and Water -Foul Odor after Cleansing No -Anesthetic Used 5% Lidocaine Gel WC - Nurse 2 - General Ulcer CM Notes Start: 01/15/25 13:11 Freq: Status: Active Protocol: Activity Type Activity Date Activity User E-sign Co-sign Detail Recorded Client Recorded Date Recorded By Document 01/15/25 13:58 [id number] 01/15/25 14:03 01/15/25 13:58 Wound Center Nurse 2 #8 L Ischium cluster -Time 13:59 -Correct Patient Yes -Correct Side, Site, Position Yes -Correct Procedure Yes -Procedure Performed Yes -Type of Procedure Debridement -Clinical Debridement Bone -Tissue Removed Non-viable tissue -Post Debridement (cm) - Length 6.0 -Post Debridement (cm) - Width 4.5 -Post Debridement (cm) - Depth 0.6 -Total Square (Post) (cm) 27.00 -Area of Debridement (cm) - Length 6.0 -Area of Debridement (cm) - Width 4.5 -Total Square (Area) (cm) 27.00 -Tunneling No -Undermining/Tunneling No -Circular Undermining No -Wound/Ulcer Outcome Not Healed -Ulcer Cleansing Rinsed/ Irrigated with Saline -Foul Odor after Cleansing No -Bioengineered Tissue No -Bleeding Controlled with Pressure -Treatment Response Procedure Tolerated Well -Offloading No -Pressure Reduction Wheelchair cushion, Specialty bed -Debridement - Muscle / Fascia, 1st No 20sq cm -Debridement - Bone, 1st 20sq cm Yes -Debridement, Bone, ea addt'l 20sq cm 1 or part thereof #7 R Ischium cluster -Time 14:02 -Correct Patient Yes -Correct Side, Site, Position Yes -Correct Procedure Yes -Procedure Performed Yes -Type of Procedure Debridement -Clinical Debridement Subcutaneous -Tissue Removed Subcutaneous -Post Debridement (cm) - Length 2.0 -Post Debridement (cm) - Width 0.4 -Post Debridement (cm) - Depth 0.3 -Total Square (Post) (cm) 0.80 -Area of Debridement (cm) - Length 2.0 -Area of Debridement (cm) - Width 0.4 -Total Square (Area) (cm) 0.80 -Tunneling No -Undermining/Tunneling No -Circular Undermining No -Wound/Ulcer Outcome Not Healed -Ulcer Cleansing Rinsed/ Irrigated with Saline -Foul Odor after Cleansing No -Bioengineered Tissue No -Bleeding Controlled with Pressure -Treatment Response Procedure Tolerated Well -Offloading No -Pressure Reduction Wheelchair cushion -Debridement - Subq, 1st 20sq cm Yes Pain Scale: 0-10 Numeric Is Patient Pain Free? Yes - Nurse 3 - General Ulcer D/C NN Start: 01/15/25 13:11 Freq: Status: Active Protocol: Activity Type Activity Date Activity User E-sign Co-sign Detail Recorded Client Recorded Date Recorded By Document 01/15/25 14:11 [facility] [id number] 01/15/25 14:13 [facility] 01/15/25 14:11 [facility] Center Nurse 3 #8 L Ischium cluster -Ulcer Cleansing Rinsed/ Irrigated with Saline -Foul Odor after Cleansing No -Primary Dressing Applied Hysept, Promogran Tram Matter -Other Dressing abd -Primary Dressing Covered/Secured with Secured with Tape -Other Covering dakins rinse -Hysept 1 -Promogran Tram Matter 1 -Wound Comment(s) drsgs per dl hot top liner helper #7 R Ischium cluster -Ulcer Cleansing Rinsed/ Irrigated with Saline -Foul Odor after Cleansing No -Primary Dressing Applied Promogran Tram Matter -Other Dressing rinsed w/ dakins; drsgs per dl hot top liner helper -Primary Dressing Covered/Secured with Secured with Tape -Other Covering abd -Promogran Tram Matter 0 Treatment Response Procedure Tolerated Well Pain Scale: 0-10 Numeric Is Patient Pain Free? Yes WC - Visit Discharge Discharge Condition Stable Ambulatory Status Wheelchair Transportation Private Auto Additional Wound Wound debrided: Right ischial wound Laterality: Right Wound Grade/Stage: 3 Type of Debridement: Excisional debridement Anesthesia Used: 4% Lidocaine Solution Depth: in the subcutaneous layer Percentage of wound debrided: 100 Instrument Used: 7mm curette Tissue Removed: Necrotic exudate and necrotic fat at the base of the wound Severity: Fat Layer Exposed Amount of bleeding with debridement: Mild Bleeding Controlled with: Compression and gauze Patient tolerated procedure: Patient tolerated procedure well Assessment/Plan Assessment/Plan (1) Pressure sore of left ischium, stage 4: CODE(S): L89.324 - Pressure ulcer of left buttock, stage 4 (2) Right ischial pressure sore, stage 4: CODE(S): L89.314 - Pressure ulcer of right buttock, stage 4 (3) Perineal ulcer: CODE(S): L98.499 - Non-pressure chronic ulcer of skin of other sites with unspecified severity QUALIFIERS: Non-pressure ulcer stage: unspecified non-pressure ulcer stage Qualified Code(s): L98.499 - Non-pressure chronic ulcer of skin of other sites with unspecified severity (4) Paraplegia at T4 level: CODE(S): G82.20 - Paraplegia, unspecified (5) History of tobacco use: CODE(S): Z87.891 - Personal history of nicotine dependence (6) Severe protein-calorie malnutrition: CODE(S): E43 - Unspecified severe protein-calorie malnutrition (7) Decubitus ulcer of trochanteric region of left hip, unstageable: CODE(S): L89.220 - Pressure ulcer of left hip, unstageable PLAN: Plan Patient was evaluated at the wound healing center today. Wound care - To the left ischial ulcer and right ischial/perineal ulcer will be lightly Tram covered with ABD daily. Wash all ulcers with soap and water and rinse with Dakin's 0.25% solution before dressing changes. I stressed the importance of daily dressing changes. Encouraged him to allow family to help with dressing changes. Encourage nutritional supplementation with protein to help the healing process. He saw a spine surgeon at [facility] in [place] who states that his scoliosis is not operable. Plan from 15 January 2025: Continue above for dressing changes We have taken a biopsy for pathologic examination of the left trochanteric wound as it has not been biopsied for a while (follow-up biopsy results) We have ordered a CT scan of the left hip and the pelvis to assess for osteomyelitis and for preoperative planning for potential [place] with reconstruction. Nutrition labs and A1c were also ordered today Follow-up in 2 weeks
--- NOTE | 2025-01-16 10:43 | WC ---
PHOTO 01/15/25 LEFT ISCHIUM
--- NOTE | 2025-01-16 10:45 | WC ---
PHOTO 01/15/25 RIGHT ISCHIUM
--- NOTE | 2025-01-17 15:42 | WC ---
Jasmin Santos transfers care of this patient over to Dr. Calhoun as of 01/17/25
== END 2025-02-07 23:59 | disposition home or self-care (01) ==
LOC: WC 13:07
PROVIDERS: PCP Internal Medicine; Referring Provider Internal Medicine; Visit Provider Surgery Plastic and Reconstructive Surgery
DX: L89.314 Pressure ulcer of right buttock, stage 4 (principal); L89.324 Pressure ulcer of left buttock, stage 4; L89.220 Pressure ulcer of left hip, unstageable; G82.20 Paraplegia, unspecified; L98.499 Non-pressure chronic ulcer of skin of other sites with unspecified severity; L28.0 Lichen simplex chronicus; F17.210 Nicotine dependence, cigarettes, uncomplicated; F17.290 Nicotine dependence, other tobacco product, uncomplicated; Z79.899 Other long term (current) drug therapy; Z86.14 Personal history of Methicillin resistant Staphylococcus aureus infection
CPT/HCPCS: 11042; 11043; 11044; 11046; 11047; 88305; 88312

== ENCOUNTER 2025-02-07 11:30 | Outpatient (CLI) | payer MEDICARE, MEDICAID, SELFPAY ==
--- NOTE | 2025-02-07 11:34 | NM_ITS ---
PROCEDURE: HEPATOBILLIARY IMG W/PHARM INT 02/07/2025 REASON FOR EXAM: RUQ PAIN, GALLSTONES TECHNIQUE: Intravenous Choletec with planar imaging of the abdomen. RADIOPHARMACEUTICAL: 5.8 mCi of technetium 99 M mebrofenin COMPARISON: Ultrasound 01/02/2025 FINDINGS: There is good uptake of the radiopharmaceutical by the liver. Despite imaging for 120 minutes, there is non opacification of the gallbladder. Differential diagnosis includes acute cholecystitis, chronic cholecystitis, prolonged fasting, recent meal. Minutes. NM/Hepatobilliary Img w/Pharm Int IMPRESSION: Nonvisualization of the gallbladder. Reading Location: [id number]
--- NOTE | 2025-02-07 13:25 | CT_ITS ---
PROCEDURE: PELVIS WITHOUT IV CONTRAST 02/07/2025 REASON FOR EXAM: DAVID ULCERS, LEFT HIP TECHNIQUE: CT cystogram after diluted water-soluble contrast was infused into the bladder through an indwelling Payne catheter using sterile technique. FINDINGS: Bladder: Status post cystectomy with an ileal conduit. Ureters: Unremarkable. Prostate: Not visualized Bowel: No bowel obstruction. Appendix: The appendix is not identified. There is no inflammatory process identified in the right lower quadrant to suggest appendicitis. Lymph nodes: Unremarkable. Vasculature: Major vascular structures are unremarkable. Peritoneum / Retroperitoneum: No ascites. No free air. Bones: Deformity of the pelvis and proximal femora. Large decubitus ulcer superficial to the left femoral head and neck extending to the bone surface with sclerosis of the bone likely consistent with a chronic osteomyelitis. No loculated fluid collection to suggest abscess. Similar ulcer on the right with exposure of the right greater trochanter but no abscess. CT/Pelvis without IV Contrast IMPRESSION: Large deep decubitus ulcer with exposure of the left femoral head and neck with probable chronic osteomyelitis but no abscess. Reading Location: [id number]
[2025-02-07 14:23] LABS: Absolute Lymphocyte Count 1.68 X10^3/uL (0.83-4.51); Absolute Neutrophil Count 8.1 X10^3/uL (2.0-7.7); Basophil# 0.05 X10^3/uL; Basophil% 0.4 % (0-1); Eosinophil# 0.26 X10^3/uL; Eosinophils% 2.3 % (0-5); Hematocrit 44.6 % (40-54); Hemoglobin 14.8 g/dL (13.0-16.5); Lymphocyte # 1.68 X10^3/ul (0.83-4.51); Lymphocyte % 14.9 % (19-41); Mean Corp Hgb Conc 33.2 g/dL (32-36); Mean Corpuscular Hgb 30.5 pg (27.0-32.0); Mean Corpuscular Volume 91.8 fL (80-94); Mean Platelet Vol. 10.2 fl (6.2-12.0); Monocyte# 1.19 X10^3/uL; Monocyte% 10.6 % (0-10); NRBC Flagged by Analyzer 0 % (0-5); Neutrophil # 8.06 X10^3/uL (2.7-7.7); Neutrophil % 71.5 % (47-70); Platelet Count 295 K/mm3 (150-450); RBC Distribution Width CV 12.7 % (11.6-14.6); RBC Distribution Width SD 42.5 fl (35.1-43.9); Red Blood Count 4.86 M/mm3 (4.6-6.2); White Blood Count 11.3 K/mm3 (4.4-11.0)
[2025-02-07 14:46] LABS: Erythrocyte Sedimentation Rate 18 mm/hr (0-20)
[2025-02-07 15:57] LABS: ALB/GLOB Ratio 1.3 RATIO (0.9-2.4); AST(SGOT) 17 U/L (<=37); Alanine Aminotransfer ALT/SGPT 10 U/L (<=46); Albumin, Serum 3.9 g/dL (3.5-5.0); Alkaline Phosphatase 113 U/L (40-129); Anion Gap 10 (5-15); BUN 32 mg/dL (4-19); BUN/Creat Ratio 51.2 RATIO (10-20); CRP 7.62 mg/L (0.0-3.0); Calcium,Total 9.3 mg/dL (7.6-11.0); Carbon Dioxide 25.8 mmol/L (21.0-32.0); Chloride 105 mmol/L (98-108); Creatinine, Serum 0.62 mg/dL (0.70-1.20); EST Glomerular Filtration Rate 111 (>60); Glucose 103 mg/dL (70-99); Potassium 3.9 mmol/L (3.3-5.1); Protein, Total 6.9 g/dL (5.9-8.4); Sodium Level 142 mmol/L (133-145)
[2025-02-07 16:19] LABS: Hemoglobin A1c 5.2 % (<=5.6)
[2025-02-09 04:07] LABS: Prealbumin 22 mg/dL (10-36)
== END 2025-02-07 23:59 | disposition home or self-care (01) ==
PROVIDERS: PCP Internal Medicine; Referring Provider Surgery Plastic and Reconstructive Surgery; Visit Provider Nurse Practitioner Acute Care
DX: L89.219 Pressure ulcer of right hip, unspecified stage (principal); M86.9 Osteomyelitis, unspecified; L89.229 Pressure ulcer of left hip, unspecified stage; K80.20 Calculus of gallbladder without cholecystitis without obstruction; E46 Unspecified protein-calorie malnutrition; R74.8 Abnormal levels of other serum enzymes
CPT/HCPCS: 36415; 72192; 78227; 80053; 83036; 84134; 85025; 85652; 86140; A9537

== ENCOUNTER 2025-02-12 13:19 | Outpatient (RCR) | payer MEDICARE, MEDICAID, SELFPAY ==
[2025-02-08 00:36] VITALS: BP 127/70; PULSE 88; RESP 16; TEMP 36.7; BMI 19.8
[2025-02-12 14:49] VITALS: BP 130/75; PULSE 90; RESP 18; TEMP 36.2; BMI 19.8
--- NOTE | 2025-02-13 17:26 | PCM.WC.PN ---
History of Present Illness Date of Service: 02/12/25 Chief Complaint: Bilateral ischial pressure sores, Stage IV. History of Wound: Surgery 04/08/20 - 1. Excision bleeding right ischial/perineal pressure sore, Stage IV. 2. Control of prostatic bleeding with electrocautery and Surgicel hemostat. Wound Care - Left ischial and right ischial ulcers are moistened Promogran topped with ABD daily. Wash both ulcers with soap and water at the time of the dressing change. Left ischial ulcer culture 12/28/22 positive for MRSA, Staphylococcus haemolyticus, Corynebacterium striatum, Proteus mirabilus, and Streptococcus group F. He was treated with Augmentin and Doxycycline. Wound culture from 03/02/22 positive for Pseudomonas aeroginosa, Morganella morganii sp sibonii, and Corynebacterium. Due to his allergies and the the sensitivity of the cultures, patient was referred to ID, who placed him on Augmentin and Cipro, which he currently is on and is tolerating. Wound culture from 01/20/21 positive for Proteus mirabilis, Cornybacterium minutissium and Bacteroides fragilis. He was referred to ID for antibiotic management, which he was placed on Cefdinir, Doxycycline and Flagyl for 10 days. Patient has long standing bilateral ischial pressure sores, Stage IV, with the left side extending to the femoral head and the right side extending to the perineal area and the prostate. Surgery would entail quite extensive excision with amputations at a tertiary center. Patient does not want to pursue any heroic surgeries at this time since it is not a guarantee his pressure issues won't recur. With aggressive amputations, his already tenuous balance would be even more disrupted. At the present time, we are providing conservative care on a monthly basis. He stated his right leg gets in the way when transferring. He underwent a right AKA on 06/12/20 in [place]. Wound culture was done on 04/22/20. It showed Morganella morganii, Pseudomonas aeroginosa, Streptococcus group F, and Bacteroides fragilis. He has a lot of antibiotic allergies. His only real option is IV antibiotics. Dr. Chester also saw him at the [facility] and felt the wounds were colonized and held off on antibiotics at this time. If his clinical situation were to change, then would re-evaluate him for IV antibiotics at that time. Wound culture from 11/01/20 was positive for MRSA, E. coli, Proteus Mirabilis. He was treated with Augmentin and doxycycline. He had a cystectomy and a partial prostatectomy by Dr. Lala at [facility] on 08/04/22. He states he is feeling better than he was before having his bladder removed. 17 July 2024: Today he denies any fever, chills or nausea and vomiting. Doing well overall. Reports that he is consistent with his wound care. Reports that he wants to see a spine surgeon and needs a referral for evaluation of his kyphosis. There is a spine surgeon in [place] that he would like to go to for a second opinion (Dr. Doty saw the patient in did not think he was a good surgical candidate at this time). Patient believes that his most important health issue is his scoliosis and he would like this corrected first. Of note patient has urostomy, but he manages his bowel movements but digital decompaction (no colostomy) Subjective Subjective 15 January 2025: Patient reports seeing spine surgeon in [place] who suggested that the scoliosis was not operable. He has been doing Angelina for wound care to the left trochanteric and the right ischial wounds. He is interested in workup for potential reconstruction. Of note patient lives at home with his nephew in a house that they own just outside of [place]. Patient smokes 1 pack of cigarettes per week for his anxiety and vapes from time to time with vapes that do not have nicotine. I discussed with him smoking cessation and the negative effects of wound healing from nicotine and cigarettes. I talked him about smoking cessation with Chantix and he does not want to try that. Current encounter, 12 Feb 2025: Patient doing well overall. I talked to him extensively about the results of the CT scan which demonstrated open wound down to the greater trochanter region of the left femur but no fluid collections. I talked him about his nutrition status which demonstrated excellent albumin and prealbumin (3.9 and 22). His A1c was 5.2. He has been thinking about the position restrictions lately and is concerned about not laying on his right side as his urostomy bag leaks when he lays on his left side and he is not comfortable laying on the right side. His scoliosis severely limits his ability to position himself off of the left side, and this is likely why he has a wound on the left greater trochanteric region. He may be interested in continuing wound care rather than Girdlestone/flap reconstruction. Left trochanteric wound was biopsied last time and did not demonstrate any signs of malignancy. Objective Data Objective Data Vital Signs: Vital Signs Temp Pulse Resp BP 97.1 F L 90 18 130/75 H 02/12/25 14:49 02/12/25 14:49 02/12/25 14:49 02/12/25 14:49 Weight: 99 lb 15.992 oz Body Mass Index (BMI) 19.8 Charges/Coding Visit Charges Office Visits / Consults: 96368 OV L4 Est 30min (Extensive discussion with greater than 30-minute interaction) Physical Exam Narrative Right ischial wound that is down to subcutaneous tissue/muscle and is 2 x 0.4 cm and it is 0.3 cm deep. no signs of surrounding infection. Left trochanteric wound with some exposure of bone at the superior aspect of the wound with muscle/subcutaneous tissue over the inferior portions of the wound. No signs of surrounding acute infection. The wound measures 6 x 4.5 cm and is 0.6 cm deep. Some green tinge to the tissue suggestive of Pseudomonas colonization. Const alert and oriented x3 HEENT normocephalic Eyes EOMs intact bilaterally Chest Chest Narrative: Severe kyphosis Cardio regular rate GI GI Narrative: Abdomen with urostomy Debridement Note Debridement Note No debridement was completed: No debridement was completed today Post-Debridement Measurements and Additional Note: Post-Debridement Measurements/Treatment - Nurse 1 - General Ulcer Assessment Start: 02/12/25 14:49 Freq: Status: Active Protocol: NIKA.[email or web address] Activity Type Activity Date Activity User E-sign Co-sign Detail Recorded Client Recorded Date Recorded By Document 02/12/25 14:49 DL [id number] 02/12/25 15:00 DL 02/12/25 14:49 - Today's Visit Information Type of service Follow-up Visit (Physician/SENIOR USER EXPERIENCE ARCHITECT ) Arrival Mode Wheelchair Transfer Assistance Manual,None Transfer Assist (Other) x1 Patient Identification Verified (Name & Yes ) Patient Requires Transmission-Based No Precautions Height and Weight Body Mass Index (BMI) 19.8 BMI Classification Normal Vital Signs Temperature (97.8 F-99.1 F) 97.1 F L Temperature Source Temporal Pulse Rate (60-100) 90 Pulse Location Monitor Respiratory Rate (12-18) 18 Blood Pressure (90/60-120/80) 130/75 H Blood Pressure Mean (mm Hg) 93 Source Monitor History Since Last Visit- (Skip if this is Patient's initial visit) Have you changed medications since your No last visit? Any new allergies or adverse reactions No Signs or symptoms of abuse and/or No neglect since last visit Have you been in the hospital since your No last visit? Has dressing in place as prescribed Yes Has compression in place as prescribed N/A Has offloadiing in place as prescribed Yes Experienced any changes in pain level or No management Pain Scale: 0-10 Numeric Is Patient Pain Free? Yes WC - Nurse 1 - General Ulcer Measurement Start: 02/12/25 14:49 Freq: Status: Active Protocol: Activity Type Activity Date Activity User E-sign Co-sign Detail Recorded Client Recorded Date Recorded By Document 02/12/25 14:49 DL [id number] 02/12/25 15:00 DL 02/12/25 14:49 Wound Center Nurse 1 #8 L Ischium cluster -Current Size (cm) - Length 2.9 -Current Size (cm) - Width 1.3 -Current Size (cm) - Depth 0.1 -Total Square Cm 3.77 -Exudate Amt Medium -Exudate Type Serosanguineous -Wound Margin Thickened & Rolled Under -Granulation Amt Large (67-100%) -Granulation Quality [place] -Necrosis Amt None Present (0 %) -Structure Exposed N/A -Texture (Steffi-wound Skin Appearance) Scarring -Moisture (Steffi-wound Skin Appearance) Maceration -Color (Steffi-wound Skin Appearance) No Abnormality -Temperature (Steffi-wound Skin No Abnormality Appearance) (Pt Warm) -Ulcer Cleansing Soap and Water -Foul Odor after Cleansing No -Anesthetic Used 5% Lidocaine Gel #7 R Ischium cluster -Current Size (cm) - Length 1.7 -Current Size (cm) - Width 0.3 -Current Size (cm) - Depth 0.1 -Total Square Cm 0.51 -Exudate Amt Small -Exudate Type Serosanguineous -Wound Margin Thickened & Rolled Under -Granulation Amt Small (1-33%) -Granulation Quality Pale,[place] -Necrosis Amt None Present (0 %) -Structure Exposed N/A -Texture (Steffi-wound Skin Appearance) Scarring -Moisture (Steffi-wound Skin Appearance) No Abnormality -Color (Steffi-wound Skin Appearance) No Abnormality -Ulcer Cleansing Rinsed/ Irrigated with Saline -Foul Odor after Cleansing No -Anesthetic Used 5% Lidocaine Gel - Nurse 2 - General Ulcer CM Notes Start: 02/12/25 14:49 Freq: Status: Active Protocol: Activity Type Activity Date Activity User E-sign Co-sign Detail Recorded Client Recorded Date Recorded By Document 02/12/25 15:10 [email or web address] 02/12/25 15:20 02/12/25 15:10 Wound Center Nurse 2 #8 L Ischium cluster -Correct Patient Yes -Correct Side, Site, Position No -Correct Procedure No -Procedure Performed No -Wound/Ulcer Outcome Not Healed #7 R Ischium cluster -Correct Patient Yes -Correct Side, Site, Position No -Correct Procedure No -Procedure Performed No -Wound/Ulcer Outcome Not Healed Pain Scale: 0-10 Numeric Is Patient Pain Free? Yes - Nurse 3 - General Ulcer D/C NN Start: 02/12/25 14:49 Freq: Status: Active Protocol: Activity Type Activity Date Activity User E-sign Co-sign Detail Recorded Client Recorded Date Recorded By Document 02/12/25 15:26 [id number] 02/12/25 15:27 02/12/25 15:26 Wound Care Center Nurse 3 #8 L Ischium cluster -Primary Dressing Applied Promogran Angelina Matter -Primary Dressing Covered/Secured with Dry Gauze, Secured with Tape -Promogran Angelina Matter 1 #7 R Ischium cluster -Other Dressing angelina -Primary Dressing Covered/Secured with Dry Gauze, Secured with Tape Pain Scale: 0-10 Numeric Is Patient Pain Free? Yes - Visit Discharge Discharge Condition Stable Ambulatory Status Wheelchair Transportation Private Auto Medication Reconcilliation completed & No provided to patient/care provider Clinical Summary of Care Provided Yes Assessment/Plan Assessment/Plan (1) Pressure sore of left ischium, stage 4: CODE(S): L89.324 - Pressure ulcer of left buttock, stage 4 (2) Right ischial pressure sore, stage 4: CODE(S): L89.314 - Pressure ulcer of right buttock, stage 4 (3) Perineal ulcer: CODE(S): L98.499 - Non-pressure chronic ulcer of skin of other sites with unspecified severity QUALIFIERS: Non-pressure ulcer stage: unspecified non-pressure ulcer stage Qualified Code(s): L98.499 - Non-pressure chronic ulcer of skin of other sites with unspecified severity (4) Paraplegia at T4 level: CODE(S): G82.20 - Paraplegia, unspecified (5) History of tobacco use: CODE(S): Z87.891 - Personal history of nicotine dependence (6) Severe protein-calorie malnutrition: CODE(S): E43 - Unspecified severe protein-calorie malnutrition (7) Decubitus ulcer of trochanteric region of left hip, unstageable: CODE(S): L89.220 - Pressure ulcer of left hip, unstageable PLAN: Plan Patient was evaluated at the wound healing center today. Wound care - To the left ischial ulcer and right ischial/perineal ulcer will be lightly Angelina covered with ABD daily. Wash all ulcers with soap and water and rinse with Dakin's 0.25% solution before dressing changes. I stressed the importance of daily dressing changes. Encouraged him to allow family to help with dressing changes. Encourage nutritional supplementation with protein to help the healing process. He saw a spine surgeon at [facility] in [place] who states that his scoliosis is not operable. Plan from 15 January 2025: Continue above for dressing changes We have taken a biopsy for pathologic examination of the left trochanteric wound as it has not been biopsied for a while (follow-up biopsy results) We have ordered a CT scan of the left hip and the pelvis to assess for osteomyelitis and for preoperative planning for potential Girdlestone with reconstruction. Nutrition labs and A1c were also ordered today Follow-up in 2 weeks Plan from 12 Feb 2025: Discussed results of above-noted tests (no malignancy on biopsy, chronic osteomyelitis without any fluid collections for the left hip, and adequate labs for wound healing). Patient is going to think about reconstruction. He needs to quit smoking completely. He is not sure if he would do well with the positioning restrictions and be able to pressure offload and is concerned that we would make a bigger wound. The wound is well-controlled at this point. The patient also has thin skin on the other side over the trochanter that is healed and I would be ashamed to have breakdown on the side if he is trying to pressure offload the contralateral side. Patient is currently content with wound care regimen and would like to continue that at this time and will further consider options for flap reconstruction with a Girdlestone procedure in the future. Follow-up in 1 month. Continue above-noted dressing changes
== END 2025-03-10 23:59 | disposition home or self-care (01) ==
LOC: WC 13:19
PROVIDERS: PCP Internal Medicine; Referring Provider Internal Medicine; Visit Provider Surgery Plastic and Reconstructive Surgery
DX: L89.314 Pressure ulcer of right buttock, stage 4 (principal); L89.324 Pressure ulcer of left buttock, stage 4; L89.220 Pressure ulcer of left hip, unstageable; G82.20 Paraplegia, unspecified; Z89.611 Acquired absence of right leg above knee; F41.9 Anxiety disorder, unspecified; F17.210 Nicotine dependence, cigarettes, uncomplicated; F17.290 Nicotine dependence, other tobacco product, uncomplicated; Z79.899 Other long term (current) drug therapy
CPT/HCPCS: 99214; G0463

== ENCOUNTER 2025-03-12 14:27 | Outpatient (RCR) | payer MEDICARE, MEDICAID, SELFPAY ==
[2025-03-11 00:17] VITALS: BP 130/75; PULSE 90; RESP 18; TEMP 36.2; BMI 19.8
[2025-03-12 14:49] VITALS: BP 119/59; PULSE 91; RESP 16; TEMP 36.4; BMI 19.8
--- NOTE | 2025-03-12 18:11 | PN.PCM_ITS ---
History of Present Illness Date of Service: 03/12/25 Chief Complaint: Bilateral ischial pressure sores, Stage IV. History of Wound: Per chart review Surgery 04/08/20 - 1. Excision bleeding right ischial/perineal pressure sore, Stage IV. 2. Control of prostatic bleeding with electrocautery and Surgicel hemostat. Wound Care - Left ischial and right ischial ulcers are moistened Promogran topped with ABD daily. Wash both ulcers with soap and water at the time of the dressing change. Left ischial ulcer culture 12/28/22 positive for MRSA, Staphylococcus haemolyticus, Corynebacterium striatum, Proteus mirabilus, and Streptococcus group F. He was treated with Augmentin and Doxycycline. Wound culture from 03/02/22 positive for Pseudomonas aeroginosa, Morganella morganii sp sibonii, and Corynebacterium. Due to his allergies and the the sensitivity of the cultures, patient was referred to ID, who placed him on Augmentin and Cipro, which he currently is on and is tolerating. Wound culture from 01/20/21 positive for Proteus mirabilis, Cornybacterium minutissium and Bacteroides fragilis. He was referred to ID for antibiotic management, which he was placed on Cefdinir, Doxycycline and Flagyl for 10 days. Patient has long standing bilateral ischial pressure sores, Stage IV, with the left side extending to the femoral head and the right side extending to the perineal area and the prostate. Surgery would entail quite extensive excision with amputations at a tertiary center. Patient does not want to pursue any heroic surgeries at this time since it is not a guarantee his pressure issues won't recur. With aggressive amputations, his already tenuous balance would be even more disrupted. At the present time, we are providing conservative care on a monthly basis. He stated his right leg gets in the way when transferring. He underwent a right AKA on 06/12/20 in [place]. Wound culture was done on 04/22/20. It showed Morganella morganii, Pseudomonas aeroginosa, Streptococcus group F, and Bacteroides fragilis. He has a lot of antibiotic allergies. His only real option is IV antibiotics. Dr. Chester also saw him at the [facility] and felt the wounds were colonized and held off on antibiotics at this time. If his clinical situation were to change, then would re-evaluate him for IV antibiotics at that time. Wound culture from 11/01/20 was positive for MRSA, E. coli, Proteus Mirabilis. He was treated with Augmentin and doxycycline. He had a cystectomy and a partial prostatectomy by Dr. Lala at [facility] on 08/04/22. He states he is feeling better than he was before having his bladder removed. " 17 July 2024: Today he denies any fever, chills or nausea and vomiting. Doing well overall. Reports that he is consistent with his wound care. Reports that he wants to see a spine surgeon and needs a referral for evaluation of his kyphosis. There is a spine surgeon in [place] that he would like to go to for a second opinion (Dr. Doty saw the patient in did not think he was a good surgical candidate at this time). Patient believes that his most important health issue is his scoliosis and he would like this corrected first. Of note patient has urostomy, but he manages his bowel movements but digital decompaction (no colostomy) Subjective Subjective 15 January 2025: Patient reports seeing spine surgeon in [place] who suggested that the scoliosis was not operable. He has been doing Tram for wound care to the left trochanteric and the right ischial wounds. He is interested in workup for potential reconstruction. Of note patient lives at home with his nephew in a house that they own just outside of [place]. Patient smokes 1 pack of cigarettes per week for his anxiety and vapes from time to time with vapes that do not have nicotine. I discussed with him smoking cessation and the negative effects of wound healing from nicotine and cigarettes. I talked him about smoking cessation with Chantix and he does not want to try that. 12 Feb 2025: Patient doing well overall. I talked to him extensively about the results of the CT scan which demonstrated open wound down to the greater trochanter region of the left femur but no fluid collections. I talked him about his nutrition status which demonstrated excellent albumin and prealbumin (3.9 and 22). His A1c was 5.2. He has been thinking about the position restrictions lately and is concerned about not laying on his right side as his urostomy bag leaks when he lays on his left side and he is not comfortable laying on the right side. His scoliosis severely limits his ability to position himself off of the left side, and this is likely why he has a wound on the left greater trochanteric region. He may be interested in continuing wound care rather than Girdlestone/flap reconstruction. Left trochanteric wound was biopsied last time and did not demonstrate any signs of malignancy. Current encounter, 12 March 2025: Doing well overall. Reports that the wounds of gotten smaller. He is tolerating dressing changes and is not interested in any major surgery at this time (has thought about our discussions in the past). He is not having any systemic symptoms, fevers or chills. Denies having any drainage from the wounds. Objective Data Objective Data Vital Signs: Vital Signs Temp Pulse Resp BP 97.5 F L 91 16 119/59 L 03/12/25 14:49 03/12/25 14:49 03/12/25 14:49 03/12/25 14:49 Weight: 99 lb 15.992 oz Body Mass Index (BMI) 19.8 Charges/Coding Procedures Integumentary [id number]: 19131 Manisha subq tissue 20 sq cm/< Physical Exam Narrative Right ischial wound that is down to subcutaneous tissue/muscle and is 2 x 0.5 cm and it is 0.3 cm deep. no signs of surrounding infection. Left trochanteric wound with no obvious exposed bone today. No signs of surrounding acute infection. The wound measures 1 x 2 cm and is 0.1 cm deep. Const alert and oriented x3 HEENT normocephalic Eyes EOMs intact bilaterally Chest Chest Narrative: Severe kyphosis Cardio regular rate GI GI Narrative: Abdomen with urostomy Debridement Note Debridement Note Wound debrided: Right ischial wound Laterality: Right Wound Grade/Stage: Stage III Type of Debridement: Excisional debridement Anesthesia Used: 4% Lidocaine Solution and - Depth: in the subcutaneous layer Percentage of wound debrided: 100 Instrument Used: 7mm curette Tissue Removed: Necrotic fibrinous exudate and hypertrophic granulation tissue Severity: Fat Layer Exposed Amount of bleeding with debridement: Mild Bleeding Controlled with: Pressure Post-Debridement Measurements and Additional Note: Post-Debridement Measurements/Treatment NIKA - Nurse 1 - General Ulcer Assessment Start: 03/12/25 14:47 Freq: Status: Active Protocol: WILLIAMS Activity Type Activity Date Activity User E-sign Co-sign Detail Recorded Client Recorded Date Recorded By Document 03/12/25 14:49 DL [id number] 03/12/25 14:57 DL 03/12/25 14:49 WC - Today's Visit Information Type of service Follow-up Visit (Physician/HANDS HANGER ) Arrival Mode Wheelchair Transfer Assistance None Patient Identification Verified (Name & Yes ) Patient Requires Transmission-Based No Precautions Safety Precautions NA Height and Weight Body Mass Index (BMI) 19.8 BMI Classification Normal Vital Signs Temperature (97.8 F-99.1 F) 97.5 F L Temperature Source Temporal Pulse Rate (60-100) 91 Pulse Location Monitor Respiratory Rate (12-18) 16 Respiratory rate source Observation Blood Pressure (90/60-120/80) 119/59 L Blood Pressure Mean (mm Hg) 79 Source Monitor History Since Last Visit- (Skip if this is Patient's initial visit) Have you changed medications since your No last visit? Any new allergies or adverse reactions No Had a fall/change in ADL's that may No increase risk of falls Signs or symptoms of abuse and/or No neglect since last visit Have you been in the hospital since your No last visit? Has dressing in place as prescribed Yes Has compression in place as prescribed Yes Has offloadiing in place as prescribed Yes Experienced any changes in pain level or No management Pain Scale: 0-10 Numeric Is Patient Pain Free? Yes - Nurse 1 - General Ulcer Measurement Start: 03/12/25 14:47 Freq: Status: Active Protocol: Activity Type Activity Date Activity User E-sign Co-sign Detail Recorded Client Recorded Date Recorded By Document 03/12/25 14:49 [id number] 03/12/25 14:57 DL 03/12/25 14:49 Wound Center Nurse 1 #8 L Ischium cluster -Current Size (cm) - Length 1.4 -Current Size (cm) - Width 2.5 -Current Size (cm) - Depth 0.1 -Total Square Cm 3.50 -Exudate Amt Small -Exudate Type Serosanguineous -Wound Margin Distinct, Outline Attached -Granulation Amt Large (67-100%) -Granulation Quality Red -Necrosis Amt None Present (0 %) -Structure Exposed N/A -Texture (Steffi-wound Skin Appearance) Scarring -Moisture (Steffi-wound Skin Appearance) No Abnormality -Color (Steffi-wound Skin Appearance) No Abnormality -Temperature (Steffi-wound Skin No Abnormality Appearance) (Pt Warm) -Tenderness on Palpation (Steffi-wound No Skin Appearance) -Ulcer Cleansing Soap and Water -Foul Odor after Cleansing No #7 R Ischium cluster -Current Size (cm) - Length 0.1 -Current Size (cm) - Width 0.1 -Current Size (cm) - Depth 0.1 -Total Square Cm 0.01 -Exudate Amt None Present -Wound Margin Thickened & Rolled Under -Granulation Amt Medium (34-66%) -Granulation Quality Pale -Necrosis Amt None Present (0 %) -Structure Exposed N/A -Texture (Steffi-wound Skin Appearance) Scarring -Moisture (Steffi-wound Skin Appearance) No Abnormality -Color (Steffi-wound Skin Appearance) No Abnormality -Temperature (Steffi-wound Skin No Abnormality Appearance) (Pt Warm) -Ulcer Cleansing Soap and Water -Foul Odor after Cleansing No WC - Nurse 2 - General Ulcer CM Notes Start: 03/12/25 14:47 Freq: Status: Active Protocol: Activity Type Activity Date Activity User E-sign Co-sign Detail Recorded Client Recorded Date Recorded By Document 03/12/25 15:03 [id number] 03/12/25 15:05 DEBORAH 03/12/25 15:03 Wound Center Nurse 2 #8 L Ischium cluster -Time 15:04 -Correct Patient Yes -Correct Side, Site, Position Yes -Correct Procedure Yes -Procedure Performed Yes -Type of Procedure Debridement -Clinical Debridement Subcutaneous -Tissue Removed Subcutaneous -Post Debridement (cm) - Length 2 -Post Debridement (cm) - Width 1 -Post Debridement (cm) - Depth 0.1 -Total Square (Post) (cm) 2 -Area of Debridement (cm) - Length 2 -Area of Debridement (cm) - Width 1 -Total Square (Area) (cm) 2 -Tunneling No -Undermining/Tunneling No -Circular Undermining No -Wound/Ulcer Outcome Not Healed -Ulcer Cleansing Wound Cleanser -Foul Odor after Cleansing No -Bioengineered Tissue No -Bleeding Controlled with Pressure -Treatment Response Procedure Tolerated Well -Offloading No -Pressure Reduction Wheelchair cushion -Debridement - Subq, 1st 20sq cm No #7 R Ischium cluster -Time 15:05 -Correct Patient Yes -Correct Side, Site, Position Yes -Correct Procedure Yes -Procedure Performed Yes -Type of Procedure Debridement -Clinical Debridement Subcutaneous -Tissue Removed Subcutaneous -Post Debridement (cm) - Length 2 -Post Debridement (cm) - Width 0.5 -Post Debridement (cm) - Depth 0.1 -Total Square (Post) (cm) 1.0 -Area of Debridement (cm) - Length 2 -Area of Debridement (cm) - Width 0.5 -Total Square (Area) (cm) 1.0 -Tunneling No -Undermining/Tunneling No -Circular Undermining No -Wound/Ulcer Outcome Not Healed -Ulcer Cleansing Rinsed/ Irrigated with Saline -Foul Odor after Cleansing No -Bioengineered Tissue No -Bleeding Controlled with Pressure -Treatment Response Procedure Tolerated Well -Offloading No -Debridement - Subq, 1st 20sq cm Yes Pain Scale: 0-10 Numeric Is Patient Pain Free? Yes Additional Wound Wound debrided: Left trochanteric wound Laterality: Left Wound Grade/Stage: Stage III Type of Debridement: Excisional debridement Anesthesia Used: 4% Lidocaine Solution Depth: in the subcutaneous layer Percentage of wound debrided: 100 Instrument Used: 7mm curette Tissue Removed: Necrotic fibrinous exudate and hypertrophic granulation tissue Severity: Fat Layer Exposed Amount of bleeding with debridement: Mild Bleeding Controlled with: Compression and gauze Patient tolerated procedure: Patient tolerated procedure well Assessment/Plan Assessment/Plan (1) Paraplegia at T4 level: CODE(S): G82.20 - Paraplegia, unspecified (2) History of tobacco use: CODE(S): Z87.891 - Personal history of nicotine dependence (3) Decubitus ulcer of trochanteric region of left hip, unstageable: CODE(S): L89.220 - Pressure ulcer of left hip, unstageable PLAN: Question whether stage III or stage IV, but bone has appeared to have some soft tissue coverage today with possible reepithelialization. (4) Right ischial pressure sore, stage 3: CODE(S): L89.313 - Pressure ulcer of right buttock, stage 3 PLAN: Plan Patient was evaluated at the wound healing center today. Wound care - To the left ischial ulcer and right ischial/perineal ulcer will be lightly Tram covered with ABD daily. Wash all ulcers with soap and water and rinse with Dakin's 0.25% solution before dressing changes. I stressed the importance of daily dressing changes. Encouraged him to allow family to help with dressing changes. Encourage nutritional supplementation with protein to help the healing process. He saw a spine surgeon at [facility] in [place] who states that his scoliosis is not operable. Plan from 15 January 2025: Continue above for dressing changes We have taken a biopsy for pathologic examination of the left trochanteric wound as it has not been biopsied for a while (follow-up biopsy results) We have ordered a CT scan of the left hip and the pelvis to assess for osteomyelitis and for preoperative planning for potential Girdlestone with reconstruction. Nutrition labs and A1c were also ordered today Follow-up in 2 weeks Plan from 12 Feb 2025: Discussed results of above-noted tests (no malignancy on biopsy, chronic osteomyelitis without any fluid collections for the left hip, and adequate labs for wound healing). Patient is going to think about reconstruction. He needs to quit smoking completely. He is not sure if he would do well with the positioning restrictions and be able to pressure offload and is concerned that we would make a bigger wound. The wound is well-controlled at this point. The patient also has thin skin on the other side over the trochanter that is healed and I would be ashamed to have breakdown on the side if he is trying to pressure offload the contralateral side. Patient is currently content with wound care regimen and would like to continue that at this time and will further consider options for flap reconstruction with a Girdlestone procedure in the future. Follow-up in 1 month. Continue above-noted dressing changes Plan from 12 March 2025: Wound under control, patient happy with continued wound care as noted above. Wound appears to be getting smaller. He is not interested in any surgery at this time for the left trochanteric pressure point. Follow-up in 5 weeks or sooner as needed (discussed strict return precautions). Patient happy with the plan
== END 2025-04-09 23:59 | disposition home or self-care (01) ==
LOC: WC 14:27
PROVIDERS: PCP Internal Medicine; Referring Provider Internal Medicine; Visit Provider Surgery Plastic and Reconstructive Surgery
DX: L89.313 Pressure ulcer of right buttock, stage 3 (principal); L89.323 Pressure ulcer of left buttock, stage 3; L89.220 Pressure ulcer of left hip, unstageable; G82.20 Paraplegia, unspecified; F41.9 Anxiety disorder, unspecified; F17.210 Nicotine dependence, cigarettes, uncomplicated; Z79.899 Other long term (current) drug therapy
CPT/HCPCS: 11042

== ENCOUNTER 2025-04-16 15:20 | Outpatient (RCR) | payer MEDICARE, MEDICAID, SELFPAY ==
[2025-04-16 15:43] VITALS: BP 125/72; PULSE 82; RESP 16; TEMP 37.3
--- NOTE | 2025-04-17 08:57 | WC ---
PHOTO 04/16/25 RIGHT ISCHIUM
--- NOTE | 2025-04-17 08:58 | WC ---
PHOTO 04/16/25 LEFT ISCHIUM
--- NOTE | 2025-04-17 16:58 | PCM.WC.PN ---
History of Present Illness Date of Service: 04/16/25 Chief Complaint: Bilateral ischial pressure sores, Stage IV. History of Wound: Per chart review Surgery 04/08/20 - 1. Excision bleeding right ischial/perineal pressure sore, Stage IV. 2. Control of prostatic bleeding with electrocautery and Surgicel hemostat. Wound Care - Left ischial and right ischial ulcers are moistened Promogran topped with ABD daily. Wash both ulcers with soap and water at the time of the dressing change. Left ischial ulcer culture 12/28/22 positive for MRSA, Staphylococcus haemolyticus, Corynebacterium striatum, Proteus mirabilus, and Streptococcus group F. He was treated with Augmentin and Doxycycline. Wound culture from 03/02/22 positive for Pseudomonas aeroginosa, Morganella morganii sp sibonii, and Corynebacterium. Due to his allergies and the the sensitivity of the cultures, patient was referred to ID, who placed him on Augmentin and Cipro, which he currently is on and is tolerating. Wound culture from 01/20/21 positive for Proteus mirabilis, Cornybacterium minutissium and Bacteroides fragilis. He was referred to ID for antibiotic management, which he was placed on Cefdinir, Doxycycline and Flagyl for 10 days. Patient has long standing bilateral ischial pressure sores, Stage IV, with the left side extending to the femoral head and the right side extending to the perineal area and the prostate. Surgery would entail quite extensive excision with amputations at a tertiary center. Patient does not want to pursue any heroic surgeries at this time since it is not a guarantee his pressure issues won't recur. With aggressive amputations, his already tenuous balance would be even more disrupted. At the present time, we are providing conservative care on a monthly basis. He stated his right leg gets in the way when transferring. He underwent a right AKA on 06/12/20 in [place]. Wound culture was done on 04/22/20. It showed Morganella morganii, Pseudomonas aeroginosa, Streptococcus group F, and Bacteroides fragilis. He has a lot of antibiotic allergies. His only real option is IV antibiotics. Dr. Chester also saw him at the Wound Center and felt the wounds were colonized and held off on antibiotics at this time. If his clinical situation were to change, then would re-evaluate him for IV antibiotics at that time. Wound culture from 11/01/20 was positive for MRSA, E. coli, Proteus Mirabilis. He was treated with Augmentin and doxycycline. He had a cystectomy and a partial prostatectomy by Dr. Lala at [facility] on 08/04/22. He states he is feeling better than he was before having his bladder removed. 17 July 2024: Today he denies any fever, chills or nausea and vomiting. Doing well overall. Reports that he is consistent with his wound care. Reports that he wants to see a spine surgeon and needs a referral for evaluation of his kyphosis. There is a spine surgeon in [place] that he would like to go to for a second opinion (Dr. Doty saw the patient in did not think he was a good surgical candidate at this time). Patient believes that his most important health issue is his scoliosis and he would like this corrected first. Of note patient has urostomy, but he manages his bowel movements but digital decompaction (no colostomy) Subjective Subjective 15 January 2025: Patient reports seeing spine surgeon in [place] who suggested that the scoliosis was not operable. He has been doing Tram for wound care to the left trochanteric and the right ischial wounds. He is interested in workup for potential reconstruction. Of note patient lives at home with his nephew in a house that they own just outside of [place]. Patient smokes 1 pack of cigarettes per week for his anxiety and vapes from time to time with vapes that do not have nicotine. I discussed with him smoking cessation and the negative effects of wound healing from nicotine and cigarettes. I talked him about smoking cessation with Chantix and he does not want to try that. 12 Feb 2025: Patient doing well overall. I talked to him extensively about the results of the CT scan which demonstrated open wound down to the greater trochanter region of the left femur but no fluid collections. I talked him about his nutrition status which demonstrated excellent albumin and prealbumin (3.9 and 22). His A1c was 5.2. He has been thinking about the position restrictions lately and is concerned about not laying on his right side as his urostomy bag leaks when he lays on his left side and he is not comfortable laying on the right side. His scoliosis severely limits his ability to position himself off of the left side, and this is likely why he has a wound on the left greater trochanteric region. He may be interested in continuing wound care rather than Girdlestone/flap reconstruction. Left trochanteric wound was biopsied last time and did not demonstrate any signs of malignancy. 12 March 2025: Doing well overall. Reports that the wounds of gotten smaller. He is tolerating dressing changes and is not interested in any major surgery at this time (has thought about our discussions in the past). He is not having any systemic symptoms, fevers or chills. Denies having any drainage from the wounds. Current encounter,16 April 2025: Doing well overall. No interested in a Girdlestone with a flap at this time (discussed again today. Would like to continue to come for wound checks only. Objective Data Objective Data Vital Signs: Vital Signs Temp Pulse Resp BP O2 Del Method 99.1 F 82 16 125/72 H Room Air 04/16/25 15:43 04/16/25 15:43 04/16/25 15:43 04/16/25 15:43 04/16/25 15:43 Oxygen Delivery Method Room Air Charges/Coding Visit Charges Office Visits / Consults: 54702 OV L3 Est 20min Physical Exam Narrative Right ischial wound that is down to subcutaneous tissue/muscle and is measured elsewhere in the note but ~2 x 0.5 cm and it is ~0.3 cm deep. no signs of surrounding infection. Left trochanteric wound with no obvious exposed bone today. No signs of surrounding acute infection. The is measured elsewhere in the note but 1 x 2 cm and is ~0.1 cm deep. Const alert and oriented x3 HEENT normocephalic Eyes EOMs intact bilaterally Chest Chest Narrative: Severe kyphosis Cardio regular rate GI GI Narrative: Abdomen with urostomy Debridement Note Debridement Note No debridement was completed: No debridement was completed today Post-Debridement Measurements and Additional Note: Post-Debridement Measurements/Treatment - Nurse 1 - General Ulcer Assessment Start: 04/16/25 15:31 Freq: Status: Active Protocol: TEDEXRobin Activity Type Activity Date Activity User E-sign Co-sign Detail Recorded Client Recorded Date Recorded By Document 04/16/25 15:43 KW [id number] 04/16/25 15:51 KW 04/16/25 15:43 WC - Today's Visit Information Type of service Follow-up Visit (Physician/JEWELRY CONSULTANT ) Arrival Mode Wheelchair Transfer Assistance Manual Patient Identification Verified (Name & Yes ) Vital Signs Temperature (97.8 F-99.1 F) 99.1 F Temperature Source Temporal Pulse Rate (60-100) 82 Pulse Location Monitor Respiratory Rate (12-18) 16 Respiratory rate source Observation Oxygen Delivery Method Room Air Blood Pressure (90/60-120/80) 125/72 H Blood Pressure Mean (mm Hg) 89 Source Monitor Position Sitting Blood Pressure Location Left Arm History Since Last Visit- (Skip if this is Patient's initial visit) Have you changed medications since your No last visit? Any new allergies or adverse reactions No Had a fall/change in ADL's that may No increase risk of falls Signs or symptoms of abuse and/or No neglect since last visit Have you been in the hospital since your No last visit? Has dressing in place as prescribed Yes Has compression in place as prescribed N/A Has offloadiing in place as prescribed N/A Experienced any changes in pain level or No management Left Footwear No Footwear Right Footwear No Footwear Pain Scale: 0-10 Numeric Is Patient Pain Free? Yes - Nurse 1 - General Ulcer Measurement Start: 04/16/25 15:31 Freq: Status: Active Protocol: Activity Type Activity Date Activity User E-sign Co-sign Detail Recorded Client Recorded Date Recorded By Document 04/16/25 15:43 [id number] 04/16/25 15:51 KW 04/16/25 15:43 Wound Center Nurse 1 #8 L Ischium cluster -Current Size (cm) - Length 3.5 -Current Size (cm) - Width 6 -Current Size (cm) - Depth 0.1 -Total Square Cm 21.0 -Date of Last Picture (Recall this 04/16/25 field) -Granulation Amt Small (1-33%) -Granulation Quality [place] -Texture (Steffi-wound Skin Appearance) Assessed, Scarring -Moisture (Steffi-wound Skin Appearance) Assessed, Maceration -Color (Steffi-wound Skin Appearance) Assessed -Temperature (Steffi-wound Skin No Abnormality Appearance) (Pt Warm) -Ulcer Cleansing Soap and Water #7 R Ischium cluster -Current Size (cm) - Length 3.5 -Current Size (cm) - Width 1 -Current Size (cm) - Depth 0.1 -Total Square Cm 3.5 -Date of Last Picture (Recall this 04/16/25 field) -Granulation Amt Small (1-33%) -Granulation Quality [place] -Texture (Steffi-wound Skin Appearance) Assessed, Scarring -Moisture (Steffi-wound Skin Appearance) Assessed -Color (Steffi-wound Skin Appearance) Assessed -Temperature (Steffi-wound Skin No Abnormality Appearance) (Pt Warm) -Tenderness on Palpation (Steffi-wound No Skin Appearance) -Ulcer Cleansing Soap and Water WC - Nurse 2 - General Ulcer CM Notes Start: 04/16/25 15:31 Freq: Status: Active Protocol: Activity Type Activity Date Activity User E-sign Co-sign Detail Recorded Client Recorded Date Recorded By Document 04/16/25 16:01 DS [id number] 04/16/25 16:02 DS 04/16/25 16:01 Wound Center Nurse 2 #8 L Ischium cluster -Time 16:02 -Correct Patient Yes -Correct Side, Site, Position Yes -Procedure Performed No -Post Debridement (cm) - Length 5.0 -Post Debridement (cm) - Width 3.0 -Post Debridement (cm) - Depth 0.1 -Total Square (Post) (cm) 15.00 -Area of Debridement (cm) - Length 5.0 -Area of Debridement (cm) - Width 3.0 -Total Square (Area) (cm) 15.00 -Wound/Ulcer Outcome Not Healed #7 R Ischium cluster -Time 16:02 -Correct Patient Yes -Correct Side, Site, Position Yes -Procedure Performed No -Post Debridement (cm) - Length 2.0 -Post Debridement (cm) - Width 0.5 -Post Debridement (cm) - Depth 0.1 -Total Square (Post) (cm) 1.00 -Area of Debridement (cm) - Length 2.0 -Area of Debridement (cm) - Width 0.5 -Total Square (Area) (cm) 1.00 -Wound/Ulcer Outcome Not Healed Pain Scale: 0-10 Numeric Is Patient Pain Free? Yes WC - Nurse 3 - General Ulcer D/C NN Start: 04/16/25 15:31 Freq: Status: Active Protocol: Activity Type Activity Date Activity User E-sign Co-sign Detail Recorded Client Recorded Date Recorded By Document 04/16/25 16:20 DL [id number] 04/16/25 16:21 DL 04/16/25 16:20 Wound Care Center Nurse 3 #8 L Ischium cluster -Ulcer Cleansing Soap and Water -Primary Dressing Applied Promogran Tram Matter -Primary Dressing Covered/Secured with Secured with Tape -Other Covering ABD -Promogran Tram Matter 1 #7 R Ischium cluster -Ulcer Cleansing Soap and Water -Other Dressing Tram -Primary Dressing Covered/Secured with Secured with Tape -Other Covering ABD Treatment Response Procedure Tolerated Well Pain Scale: 0-10 Numeric Is Patient Pain Free? Yes WC - Visit Discharge Discharge Condition Stable Ambulatory Status Wheelchair Transportation Private Auto Facility Type Home Health Orders Sent Yes Assessment/Plan Assessment/Plan (1) Paraplegia at T4 level: CODE(S): G82.20 - Paraplegia, unspecified (2) History of tobacco use: CODE(S): Z87.891 - Personal history of nicotine dependence (3) Decubitus ulcer of trochanteric region of left hip, unstageable: CODE(S): L89.220 - Pressure ulcer of left hip, unstageable PLAN: Question whether stage III or stage IV, but bone has appeared to have some soft tissue coverage today with possible reepithelialization. (4) Right ischial pressure sore, stage 3: CODE(S): L89.313 - Pressure ulcer of right buttock, stage 3 PLAN: Plan Patient was evaluated at the wound healing center today. Wound care - To the left ischial ulcer and right ischial/perineal ulcer will be lightly Tram covered with ABD daily. Wash all ulcers with soap and water and rinse with Dakin's 0.25% solution before dressing changes. I stressed the importance of daily dressing changes. Encouraged him to allow family to help with dressing changes. Encourage nutritional supplementation with protein to help the healing process. He saw a spine surgeon at [facility] in [place] who states that his scoliosis is not operable. Plan from 15 January 2025: Continue above for dressing changes We have taken a biopsy for pathologic examination of the left trochanteric wound as it has not been biopsied for a while (follow-up biopsy results) We have ordered a CT scan of the left hip and the pelvis to assess for osteomyelitis and for preoperative planning for potential Girdlestone with reconstruction. Nutrition labs and A1c were also ordered today Follow-up in 2 weeks Plan from 12 Feb 2025: Discussed results of above-noted tests (no malignancy on biopsy, chronic osteomyelitis without any fluid collections for the left hip, and adequate labs for wound healing). Patient is going to think about reconstruction. He needs to quit smoking completely. He is not sure if he would do well with the positioning restrictions and be able to pressure offload and is concerned that we would make a bigger wound. The wound is well-controlled at this point. The patient also has thin skin on the other side over the trochanter that is healed and I would be ashamed to have breakdown on the side if he is trying to pressure offload the contralateral side. Patient is currently content with wound care regimen and would like to continue that at this time and will further consider options for flap reconstruction with a Girdlestone procedure in the future. Follow-up in 1 month. Continue above-noted dressing changes Plan from 12 March 2025: Wound under control, patient happy with continued wound care as noted above. Wound appears to be getting smaller. He is not interested in any surgery at this time for the left trochanteric pressure point. Follow-up in 5 weeks or sooner as needed (discussed strict return precautions). Patient happy with the plan Plan from 16 April 2025: F/u in 6 weeks for another wound check. Continue local wound care. Patient happy with just monitoring wounds for now. Does not want any major surgery.
== END 2025-05-10 23:59 | disposition home or self-care (01) ==
LOC: WC 15:20
PROVIDERS: PCP Internal Medicine; Referring Provider Internal Medicine; Visit Provider Surgery Plastic and Reconstructive Surgery
DX: L89.313 Pressure ulcer of right buttock, stage 3 (principal); L89.220 Pressure ulcer of left hip, unstageable; G82.20 Paraplegia, unspecified; L89.329 Pressure ulcer of left buttock, unspecified stage; F17.210 Nicotine dependence, cigarettes, uncomplicated; F41.9 Anxiety disorder, unspecified; Z79.899 Other long term (current) drug therapy
CPT/HCPCS: 99213; G0463

== ENCOUNTER 2025-05-28 14:49 | Outpatient (RCR) | payer MEDICARE, MEDICAID, SELFPAY ==
[2025-05-28 15:15] VITALS: BP 125/71; PULSE 91; RESP 16; TEMP 36.1
--- NOTE | 2025-05-28 16:51 | PN.PCM_ITS ---
History of Present Illness Date of Service: 05/28/25 Chief Complaint: Bilateral ischial pressure sores, Stage IV. History of Wound: Per chart review Surgery 04/08/20 - 1. Excision bleeding right ischial/perineal pressure sore, Stage IV. 2. Control of prostatic bleeding with electrocautery and Surgicel hemostat. Wound Care - Left ischial and right ischial ulcers are moistened Promogran topped with ABD daily. Wash both ulcers with soap and water at the time of the dressing change. Left ischial ulcer culture 12/28/22 positive for MRSA, Staphylococcus haemolyticus, Corynebacterium striatum, Proteus mirabilus, and Streptococcus group F. He was treated with Augmentin and Doxycycline. Wound culture from 03/02/22 positive for Pseudomonas aeroginosa, Morganella morganii sp sibonii, and Corynebacterium. Due to his allergies and the the sensitivity of the cultures, patient was referred to ID, who placed him on Augmentin and Cipro, which he currently is on and is tolerating. Wound culture from 01/20/21 positive for Proteus mirabilis, Cornybacterium minutissium and Bacteroides fragilis. He was referred to ID for antibiotic management, which he was placed on Cefdinir, Doxycycline and Flagyl for 10 days. Patient has long standing bilateral ischial pressure sores, Stage IV, with the left side extending to the femoral head and the right side extending to the perineal area and the prostate. Surgery would entail quite extensive excision with amputations at a tertiary center. Patient does not want to pursue any heroic surgeries at this time since it is not a guarantee his pressure issues won't recur. With aggressive amputations, his already tenuous balance would be even more disrupted. At the present time, we are providing conservative care on a monthly basis. He stated his right leg gets in the way when transferring. He underwent a right AKA on 06/12/20 in [place]. Wound culture was done on 04/22/20. It showed Morganella morganii, Pseudomonas aeroginosa, Streptococcus group F, and Bacteroides fragilis. He has a lot of antibiotic allergies. His only real option is IV antibiotics. Dr. Chester also saw him at the Wound Center and felt the wounds were colonized and held off on antibiotics at this time. If his clinical situation were to change, then would re-evaluate him for IV antibiotics at that time. Wound culture from 11/01/20 was positive for MRSA, E. coli, Proteus Mirabilis. He was treated with Augmentin and doxycycline. He had a cystectomy and a partial prostatectomy by Dr. Lala at [facility] on 08/04/22. He states he is feeling better than he was before having his bladder removed. " 17 July 2024: Today he denies any fever, chills or nausea and vomiting. Doing well overall. Reports that he is consistent with his wound care. Reports that he wants to see a spine surgeon and needs a referral for evaluation of his kyphosis. There is a spine surgeon in [place] that he would like to go to for a second opinion (Dr. Doty saw the patient in did not think he was a good surgical candidate at this time). Patient believes that his most important health issue is his scoliosis and he would like this corrected first. Of note patient has urostomy, but he manages his bowel movements but digital decompaction (no colostomy) Subjective Subjective 15 January 2025: Patient reports seeing spine surgeon in [place] who suggested that the scoliosis was not operable. He has been doing Tram for wound care to the left trochanteric and the right ischial wounds. He is interested in workup for potential reconstruction. Of note patient lives at home with his nephew in a house that they own just outside of [place]. Patient smokes 1 pack of cigarettes per week for his anxiety and vapes from time to time with vapes that do not have nicotine. I discussed with him smoking cessation and the negative effects of wound healing from nicotine and cigarettes. I talked him about smoking cessation with Chantix and he does not want to try that. 12 Feb 2025: Patient doing well overall. I talked to him extensively about the results of the CT scan which demonstrated open wound down to the greater trochanter region of the left femur but no fluid collections. I talked him about his nutrition status which demonstrated excellent albumin and prealbumin (3.9 and 22). His A1c was 5.2. He has been thinking about the position restrictions lately and is concerned about not laying on his right side as his urostomy bag leaks when he lays on his left side and he is not comfortable laying on the right side. His scoliosis severely limits his ability to position himself off of the left side, and this is likely why he has a wound on the left greater trochanteric region. He may be interested in continuing wound care rather than Girdlestone/flap reconstruction. Left trochanteric wound was biopsied last time and did not demonstrate any signs of malignancy. 12 March 2025: Doing well overall. Reports that the wounds of gotten smaller. He is tolerating dressing changes and is not interested in any major surgery at this time (has thought about our discussions in the past). He is not having any systemic symptoms, fevers or chills. Denies having any drainage from the wounds. 16 April 2025: Doing well overall. No interested in a Girdlestone with a flap at this time (discussed again today. Would like to continue to come for wound checks only. Current encounter, 28 May 2025: Doing well overall. No fevers or chills. Still would like to continued local wound care. Discussed status with him today, and it's not practical for him to do the pressure offloading required for any reconstruction (patient declined). Objective Data Objective Data Vital Signs: Vital Signs Temp Pulse Resp BP 97 F L 91 16 125/71 H 05/28/25 15:15 05/28/25 15:15 05/28/25 15:15 05/28/25 15:15 Charges/Coding Procedures Integumentary [id number]: [id number] Manisha subq tissue 20 sq cm/< Physical Exam Narrative Right ischial wound that is down to subcutaneous tissue/muscle. ~1 x 0.5 cm and it is ~0.3 cm deep. no signs of surrounding infection. Left ischial/trochanteric wound with no obvious exposed bone today. No signs of surrounding acute infection. The is measured elsewhere in the note but 1 x 2 cm and is ~0.3 cm deep. Const alert and oriented x3 HEENT normocephalic Eyes EOMs intact bilaterally Chest Chest Narrative: Severe kyphosis Cardio regular rate GI GI Narrative: Abdomen with urostomy Debridement Note Debridement Note Wound debrided: Left ischial/trochanteric region Laterality: Left Wound Grade/Stage: 3 Type of Debridement: Excisional debridement Anesthesia Used: 4% Lidocaine Solution Depth: in the subcutaneous layer Percentage of wound debrided: 100 Instrument Used: 7mm curette Tissue Removed: Fibrinous exudate and biofilm Severity: Fat Layer Exposed Amount of bleeding with debridement: Mild Bleeding Controlled with: Compression and gauze Patient tolerated procedure: Patient tolerated procedure well Post-Debridement Measurements and Additional Note: Post-Debridement Measurements/Treatment - Nurse 1 - General Ulcer Assessment Start: 05/28/25 15:15 Freq: Status: Active Protocol: WILLIAMS Activity Type Activity Date Activity User E-sign Co-sign Detail Recorded Client Recorded Date Recorded By Document 05/28/25 15:15 DL [id number] 05/28/25 15:21 DL 05/28/25 15:15 WC - Today's Visit Information Type of service Follow-up Visit (Physician/[employer] ) Arrival Mode Wheelchair Transfer Assistance None Patient Identification Verified (Name & Yes ) Vital Signs Temperature (97.8 F-99.1 F) 97 F L Temperature Source Temporal Pulse Rate (60-100) 91 Pulse Location Monitor Respiratory Rate (12-18) 16 Respiratory rate source Observation Blood Pressure (90/60-120/80) 125/71 H Blood Pressure Mean (mm Hg) 89 Source Monitor History Since Last Visit- (Skip if this is Patient's initial visit) Have you changed medications since your No last visit? Any new allergies or adverse reactions No Had a fall/change in ADL's that may No increase risk of falls Signs or symptoms of abuse and/or No neglect since last visit Have you been in the hospital since your No last visit? Has dressing in place as prescribed Yes Has compression in place as prescribed N/A Has offloadiing in place as prescribed Yes Experienced any changes in pain level or No management Pain Scale: 0-10 Numeric Is Patient Pain Free? Yes - Nurse 1 - General Ulcer Measurement Start: 05/28/25 15:15 Freq: Status: Active Protocol: Activity Type Activity Date Activity User E-sign Co-sign Detail Recorded Client Recorded Date Recorded By Document 05/28/25 15:15 DL [id number] 05/28/25 15:21 DL 05/28/25 15:15 Wound Center Nurse 1 #8 L Ischium cluster -Current Size (cm) - Length 0.1 -Current Size (cm) - Width 0.1 -Current Size (cm) - Depth 0.1 -Total Square Cm 0.01 -Photo Taken Yes -Exudate Amt Small -Exudate Type Serosanguineous -Wound Margin Distinct, Outline Attached -Granulation Amt Large (67-100%) -Granulation Quality [place] -Necrosis Amt None Present (0 %) -Structure Exposed N/A -Texture (Steffi-wound Skin Appearance) Scarring -Moisture (Steffi-wound Skin Appearance) No Abnormality -Color (Steffi-wound Skin Appearance) No Abnormality -Temperature (Steffi-wound Skin No Abnormality Appearance) (Pt Warm) -Tenderness on Palpation (Steffi-wound No Skin Appearance) -Ulcer Cleansing Soap and Water -Foul Odor after Cleansing No -Anesthetic Used 5% Lidocaine Gel #7 R Ischium cluster -Current Size (cm) - Length 0.1 -Current Size (cm) - Width 0.1 -Current Size (cm) - Depth 0.1 -Total Square Cm 0.01 -Photo Taken Yes -Exudate Amt None Present -Wound Margin Thickened -Granulation Amt Medium (34-66%) -Granulation Quality [place] -Necrosis Amt Medium (34-66%) -Necrotic Tissue Type Adherent Slough -Structure Exposed N/A -Texture (Steffi-wound Skin Appearance) Scarring -Moisture (Steffi-wound Skin Appearance) No Abnormality -Color (Steffi-wound Skin Appearance) No Abnormality -Temperature (Steffi-wound Skin No Abnormality Appearance) (Pt Warm) -Tenderness on Palpation (Steffi-wound No Skin Appearance) -Ulcer Cleansing Soap and Water -Foul Odor after Cleansing No -Anesthetic Used 5% Lidocaine Gel WC - Nurse 2 - General Ulcer CM Notes Start: 05/28/25 15:15 Freq: Status: Active Protocol: Activity Type Activity Date Activity User E-sign Co-sign Detail Recorded Client Recorded Date Recorded By Document 05/28/25 15:26 [id number] 05/28/25 15:35 05/28/25 15:26 Wound Center Nurse 2 #8 L Ischium cluster -Time 15:30 -Correct Patient Yes -Correct Side, Site, Position Yes -Correct Procedure Yes -Procedure Performed Yes -Type of Procedure Debridement -Clinical Debridement Subcutaneous -Tissue Removed Subcutaneous -Post Debridement (cm) - Length 2.0 -Post Debridement (cm) - Width 0.5 -Post Debridement (cm) - Depth 0.3 -Total Square (Post) (cm) 1.00 -Area of Debridement (cm) - Length 2.0 -Area of Debridement (cm) - Width 0.5 -Total Square (Area) (cm) 1.00 -Tunneling No -Undermining/Tunneling No -Circular Undermining No -Wound/Ulcer Outcome Not Healed -Ulcer Cleansing Not Cleansed -Foul Odor after Cleansing No -Bioengineered Tissue No -Bleeding Controlled with Pressure -Treatment Response Procedure Tolerated Well -Offloading No -Debridement - Subq, 1st 20sq cm No #7 R Ischium cluster -Time 15:30 -Correct Patient Yes -Correct Side, Site, Position Yes -Correct Procedure Yes -Procedure Performed Yes -Type of Procedure Debridement -Clinical Debridement Subcutaneous -Tissue Removed Subcutaneous -Post Debridement (cm) - Length 1.0 -Post Debridement (cm) - Width 1.0 -Post Debridement (cm) - Depth 0.3 -Total Square (Post) (cm) 1.00 -Area of Debridement (cm) - Length 1.0 -Area of Debridement (cm) - Width 1.0 -Total Square (Area) (cm) 1.00 -Tunneling No -Undermining/Tunneling No -Circular Undermining No -Wound/Ulcer Outcome Not Healed -Ulcer Cleansing Not Cleansed -Foul Odor after Cleansing No -Bioengineered Tissue No -Bleeding Controlled with Pressure -Treatment Response Procedure Tolerated Well -Offloading No -Debridement - Subq, 1st 20sq cm Yes Pain Scale: 0-10 Numeric Is Patient Pain Free? Yes - Nurse 3 - General Ulcer D/C NN Start: 05/28/25 15:15 Freq: Status: Active Protocol: Activity Type Activity Date Activity User E-sign Co-sign Detail Recorded Client Recorded Date Recorded By Document 05/28/25 15:40 DL [id number] 05/28/25 15:43 DL 05/28/25 15:40 Wound Care Center Nurse 3 #8 L Ischium cluster -Ulcer Cleansing Soap and Water -Foul Odor after Cleansing No -Primary Dressing Applied Promogran Tram Matter -Primary Dressing Covered/Secured with Dry Gauze, Secured with Tape -Other Covering ABD -Promogran Tram Matter 1 #7 R Ischium cluster -Ulcer Cleansing Rinsed/ Irrigated with Saline -Foul Odor after Cleansing No -Other Dressing Tram -Primary Dressing Covered/Secured with Dry Gauze, Secured with Tape -Wound Comment(s) dressing applied per Zoë Wilson. Treatment Response Procedure Tolerated Well Pain Scale: 0-10 Numeric Is Patient Pain Free? Yes WC - Visit Discharge Discharge Condition Stable Ambulatory Status Wheelchair Transportation Private Auto Assessment/Plan Assessment/Plan (1) Paraplegia at T4 level: CODE(S): G82.20 - Paraplegia, unspecified (2) History of tobacco use: CODE(S): Z87.891 - Personal history of nicotine dependence (3) Decubitus ulcer of trochanteric region of left hip, unstageable: CODE(S): L89.220 - Pressure ulcer of left hip, unstageable PLAN: Question whether stage III or stage IV, but bone has appeared to have some soft tissue coverage today with possible reepithelialization. (4) Right ischial pressure sore, stage 3: CODE(S): L89.313 - Pressure ulcer of right buttock, stage 3 PLAN: Plan Patient was evaluated at the wound healing center today. Wound care - To the left ischial ulcer and right ischial/perineal ulcer will be lightly Tram covered with ABD daily. Wash all ulcers with soap and water and rinse with Dakin's 0.25% solution before dressing changes. I stressed the importance of daily dressing changes. Encouraged him to allow family to help with dressing changes. Encourage nutritional supplementation with protein to help the healing process. He saw a spine surgeon at [facility] in [place] who states that his scoliosis is not operable. Plan from 15 January 2025: Continue above for dressing changes We have taken a biopsy for pathologic examination of the left trochanteric wound as it has not been biopsied for a while (follow-up biopsy results) We have ordered a CT scan of the left hip and the pelvis to assess for osteomyelitis and for preoperative planning for potential Girdlestone with reconstruction. Nutrition labs and A1c were also ordered today Follow-up in 2 weeks Plan from 12 Feb 2025: Discussed results of above-noted tests (no malignancy on biopsy, chronic osteomyelitis without any fluid collections for the left hip, and adequate labs for wound healing). Patient is going to think about reconstruction. He needs to quit smoking completely. He is not sure if he would do well with the positioning restrictions and be able to pressure offload and is concerned that we would make a bigger wound. The wound is well-controlled at this point. The patient also has thin skin on the other side over the trochanter that is healed and I would be ashamed to have breakdown on the side if he is trying to pressure offload the contralateral side. Patient is currently content with wound care regimen and would like to continue that at this time and will further consider options for flap reconstruction with a Girdlestone procedure in the future. Follow-up in 1 month. Continue above-noted dressing changes Plan from 12 March 2025: Wound under control, patient happy with continued wound care as noted above. Wound appears to be getting smaller. He is not interested in any surgery at this time for the left trochanteric pressure point. Follow-up in 5 weeks or sooner as needed (discussed strict return precautions). Patient happy with the plan Plan from 16 April 2025: F/u in 6 weeks for another wound check. Continue local wound care. Patient happy with just monitoring wounds for now. Does not want any major surgery. Plan from 28 May 2025: Continue promogran silver daily to the two wounds. Pressure offload as able. Continue high protein diet. F/u in 6 weeks. Patient happy with the plan.
--- NOTE | 2025-05-30 12:06 | WC ---
PHOTO-LEFT ISCHIAL 05/28/25
--- NOTE | 2025-05-30 12:08 | WC ---
PHOTO-RIGHT ISCHIAL 05/28/25
== END 2025-06-10 23:59 | disposition home or self-care (01) ==
LOC: WC 14:49
PROVIDERS: PCP Internal Medicine; Referring Provider Internal Medicine; Visit Provider Surgery Plastic and Reconstructive Surgery
DX: L89.323 Pressure ulcer of left buttock, stage 3 (principal); L89.313 Pressure ulcer of right buttock, stage 3; L89.220 Pressure ulcer of left hip, unstageable; G82.20 Paraplegia, unspecified; F17.210 Nicotine dependence, cigarettes, uncomplicated; F41.9 Anxiety disorder, unspecified; Z79.899 Other long term (current) drug therapy
CPT/HCPCS: 11042

== ENCOUNTER 2025-07-02 14:39 | Outpatient (RCR) | payer MEDICARE, MEDICAID, SELFPAY ==
[2025-07-02 15:42] VITALS: BP 130/75; PULSE 86; RESP 16; TEMP 36.2
--- NOTE | 2025-07-03 10:19 | WC ---
PHOTO-LEFT ISCHIUM 07/02/25
--- NOTE | 2025-07-03 10:19 | WC ---
PHOTO-RIGHT ISCHIUM 07/02/25
--- NOTE | 2025-07-03 10:44 | PN.PCM_ITS ---
History of Present Illness Date of Service: 07/02/25 Chief Complaint: Bilateral ischial pressure sores, Stage IV. History of Wound: Per chart review Surgery 04/08/20 - 1. Excision bleeding right ischial/perineal pressure sore, Stage IV. 2. Control of prostatic bleeding with electrocautery and Surgicel hemostat. Wound Care - Left ischial and right ischial ulcers are moistened Promogran topped with ABD daily. Wash both ulcers with soap and water at the time of the dressing change. Left ischial ulcer culture 12/28/22 positive for MRSA, Staphylococcus haemolyticus, Corynebacterium striatum, Proteus mirabilus, and Streptococcus group F. He was treated with Augmentin and Doxycycline. Wound culture from 03/02/22 positive for Pseudomonas aeroginosa, Morganella morganii sp sibonii, and Corynebacterium. Due to his allergies and the the sensitivity of the cultures, patient was referred to ID, who placed him on Augmentin and Cipro, which he currently is on and is tolerating. Wound culture from 01/20/21 positive for Proteus mirabilis, Cornybacterium minutissium and Bacteroides fragilis. He was referred to ID for antibiotic management, which he was placed on Cefdinir, Doxycycline and Flagyl for 10 days. Patient has long standing bilateral ischial pressure sores, Stage IV, with the left side extending to the femoral head and the right side extending to the perineal area and the prostate. Surgery would entail quite extensive excision with amputations at a tertiary center. Patient does not want to pursue any heroic surgeries at this time since it is not a guarantee his pressure issues won't recur. With aggressive amputations, his already tenuous balance would be even more disrupted. At the present time, we are providing conservative care on a monthly basis. He stated his right leg gets in the way when transferring. He underwent a right AKA on 06/12/20 in [place]. Wound culture was done on 04/22/20. It showed Morganella morganii, Pseudomonas aeroginosa, Streptococcus group F, and Bacteroides fragilis. He has a lot of antibiotic allergies. His only real option is IV antibiotics. Dr. Chester also saw him at the [facility] and felt the wounds were colonized and held off on antibiotics at this time. If his clinical situation were to change, then would re-evaluate him for IV antibiotics at that time. Wound culture from 11/01/20 was positive for MRSA, E. coli, Proteus Mirabilis. He was treated with Augmentin and doxycycline. He had a cystectomy and a partial prostatectomy by Dr. Lala at [facility] on 08/04/22. He states he is feeling better than he was before having his bladder removed. 17 July 2024: Today he denies any fever, chills or nausea and vomiting. Doing well overall. Reports that he is consistent with his wound care. Reports that he wants to see a spine surgeon and needs a referral for evaluation of his kyphosis. There is a spine surgeon in [place] that he would like to go to for a second opinion (Dr. Doty saw the patient in did not think he was a good surgical candidate at this time). Patient believes that his most important health issue is his scoliosis and he would like this corrected first. Of note patient has urostomy, but he manages his bowel movements but digital decompaction (no colostomy) Subjective Subjective 15 January 2025: Patient reports seeing spine surgeon in [place] who suggested that the scoliosis was not operable. He has been doing Tram for wound care to the left trochanteric and the right ischial wounds. He is interested in workup for potential reconstruction. Of note patient lives at home with his nephew in a house that they own just outside of [place]. Patient smokes 1 pack of cigarettes per week for his anxiety and vapes from time to time with vapes that do not have nicotine. I discussed with him smoking cessation and the negative effects of wound healing from nicotine and cigarettes. I talked him about smoking cessation with Chantix and he does not want to try that. 12 Feb 2025: Patient doing well overall. I talked to him extensively about the results of the CT scan which demonstrated open wound down to the greater trochanter region of the left femur but no fluid collections. I talked him about his nutrition status which demonstrated excellent albumin and prealbumin (3.9 and 22). His A1c was 5.2. He has been thinking about the position restrictions lately and is concerned about not laying on his right side as his urostomy bag leaks when he lays on his left side and he is not comfortable laying on the right side. His scoliosis severely limits his ability to position himself off of the left side, and this is likely why he has a wound on the left greater trochanteric region. He may be interested in continuing wound care rather than Girdlestone/flap reconstruction. Left trochanteric wound was biopsied last time and did not demonstrate any signs of malignancy. 12 March 2025: Doing well overall. Reports that the wounds of gotten smaller. He is tolerating dressing changes and is not interested in any major surgery at this time (has thought about our discussions in the past). He is not having any systemic symptoms, fevers or chills. Denies having any drainage from the wounds. 16 April 2025: Doing well overall. No interested in a Girdlestone with a flap at this time (discussed again today. Would like to continue to come for wound checks only. 28 May 2025: Doing well overall. No fevers or chills. Still would like to continued local wound care. Discussed status with him today, and it's not practical for him to do the pressure offloading required for any reconstruction (patient declined). Current encounter, 02 July 2025: Doing well overall and is happy with doing local wound care. No fevers chills or drainage Objective Data Objective Data Vital Signs: Vital Signs Temp Pulse Resp BP 97.1 F L 86 16 130/75 H 07/02/25 15:42 07/02/25 15:42 07/02/25 15:42 07/02/25 15:42 Charges/Coding Procedures Integumentary [id number]: [id number] Manisha subq tissue 20 sq cm/< Physical Exam Narrative Right ischial wound has healed Left ischial/trochanteric wound with no obvious exposed bone today. No signs of surrounding acute infection. There is a very small left ischial wound that is 1 x 0.5 cm and 1 cm deep The rest of the wound has reepithelialized Const alert and oriented x3 HEENT normocephalic Eyes EOMs intact bilaterally Chest Chest Narrative: Severe kyphosis Cardio regular rate GI GI Narrative: Abdomen with urostomy Debridement Note Debridement Note Wound debrided: Left ischial wound Laterality: Left Wound Grade/Stage: Stage III Type of Debridement: Excisional debridement Anesthesia Used: 4% Lidocaine Solution Depth: in the subcutaneous layer Percentage of wound debrided: 100 Instrument Used: 7mm curette Tissue Removed: Fibrinous exudate and necrotic debris Severity: Fat Layer Exposed Amount of bleeding with debridement: Mild Bleeding Controlled with: Compression and gauze Patient tolerated procedure: Patient tolerated procedure well Debridement Free Text: No bone exposed. Wounds have mostly reepithelialized Post-Debridement Measurements and Additional Note: Post-Debridement Measurements/Treatment - Nurse 1 - General Ulcer Assessment Start: 07/02/25 15:37 Freq: Status: Active Protocol: MAGDALENA Activity Type Activity Date Activity User E-sign Co-sign Detail Recorded Client Recorded Date Recorded By Document 07/02/25 15:42 [id number] 07/02/25 15:48 CP 07/02/25 15:42 - Today's Visit Information Type of service Follow-up Visit (Physician/[employer] ) Arrival Mode Wheelchair Patient Identification Verified (Name & Yes ) Vital Signs Temperature (97.8 F-99.1 F) 97.1 F L Temperature Source Temporal Pulse Rate (60-100) 86 Pulse Location Monitor Respiratory Rate (12-18) 16 Respiratory rate source Observation Blood Pressure (90/60-120/80) 130/75 H Blood Pressure Mean (mm Hg) 93 Source Monitor Position Sitting Blood Pressure Location Right Arm History Since Last Visit- (Skip if this is Patient's initial visit) Have you changed medications since your No last visit? Any new allergies or adverse reactions No Had a fall/change in ADL's that may No increase risk of falls Signs or symptoms of abuse and/or No neglect since last visit Have you been in the hospital since your No last visit? Has dressing in place as prescribed Yes Has compression in place as prescribed N/A Has offloadiing in place as prescribed Yes Experienced any changes in pain level or No management Pain Scale: 0-10 Numeric Is Patient Pain Free? Yes [facility] Nurse 1 - General Ulcer Measurement Start: 07/02/25 15:37 Freq: Status: Active Protocol: Activity Type Activity Date Activity User E-sign Co-sign Detail Recorded Client Recorded Date Recorded By Document 07/02/25 15:42 [id number] 07/02/25 15:48 CP 07/02/25 15:42 Wound Center Nurse 1 #7 R Ischium cluster -Current Size (cm) - Length 0.1 -Current Size (cm) - Width 0.1 -Current Size (cm) - Depth 0.1 -Total Square Cm 0.01 -Date of Last Picture (Recall this 07/02/25 field) -Photo Taken Yes -Epithelialization Large 67-100% -Texture (Steffi-wound Skin Appearance) No Abnormality -Moisture (Steffi-wound Skin Appearance) No Abnormality -Color (Steffi-wound Skin Appearance) No Abnormality #8 L Ischium cluster -Current Size (cm) - Length 1.5 -Current Size (cm) - Width 1 -Current Size (cm) - Depth 0.1 -Total Square Cm 1.5 -Date of Last Picture (Recall this 07/02/25 field) -Photo Taken Yes -Structure Exposed Bone -Texture (Steffi-wound Skin Appearance) No Abnormality -Moisture (Steffi-wound Skin Appearance) No Abnormality -Color (Steffi-wound Skin Appearance) No Abnormality -Temperature (Steffi-wound Skin No Abnormality Appearance) (Pt Warm) -Ulcer Cleansing Soap and Water -Anesthetic Used 5% Lidocaine Gel WC - Nurse 2 - General Ulcer CM Notes Start: 07/02/25 15:37 Freq: Status: Active Protocol: Activity Type Activity Date Activity User E-sign Co-sign Detail Recorded Client Recorded Date Recorded By Document 07/02/25 15:54 [id number] 07/02/25 15:57 07/02/25 15:54 Wound Center Nurse 2 #7 R Ischium cluster -Correct Patient Yes -Correct Side, Site, Position No -Correct Procedure No -Procedure Performed No -Post Debridement (cm) - Length 0 -Post Debridement (cm) - Width 0 -Post Debridement (cm) - Depth 0 -Total Square (Post) (cm) 0 -Area of Debridement (cm) - Length 0 -Area of Debridement (cm) - Width 0 -Total Square (Area) (cm) 0 -Wound/Ulcer Outcome Healed- Epithelialized #8 L Ischium cluster -Time 15:54 -Correct Patient Yes -Correct Side, Site, Position Yes -Correct Procedure Yes -Procedure Performed Yes -Type of Procedure Debridement -Clinical Debridement Subcutaneous -Tissue Removed Subcutaneous -Post Debridement (cm) - Length 1 -Post Debridement (cm) - Width 0.5 -Post Debridement (cm) - Depth 0.1 -Total Square (Post) (cm) 0.5 -Area of Debridement (cm) - Length 1 -Area of Debridement (cm) - Width 0.5 -Total Square (Area) (cm) 0.5 -Tunneling No -Undermining/Tunneling No -Circular Undermining No -Wound/Ulcer Outcome Not Healed -Ulcer Cleansing Rinsed/ Irrigated with Saline -Foul Odor after Cleansing No -Bioengineered Tissue No -Bleeding Controlled with Pressure -Treatment Response Procedure Tolerated Well -Offloading No -Debridement - Subq, 1st 20sq cm Yes Pain Scale: 0-10 Numeric Is Patient Pain Free? Yes - Nurse 3 - General Ulcer D/C NN Start: 07/02/25 15:37 Freq: Status: Active Protocol: Activity Type Activity Date Activity User E-sign Co-sign Detail Recorded Client Recorded Date Recorded By Document 07/02/25 16:02 DEBORAH [id number] 07/02/25 16:03 DEBORAH 07/02/25 16:02 Wound Care Center Nurse 3 #8 L Ischium cluster -Ulcer Cleansing Rinsed/ Irrigated with Saline -Foul Odor after Cleansing No -Primary Dressing Applied Promogran Tram Matter -Other Dressing abd pad -Primary Dressing Covered/Secured with Secured with Tape -Promogran Tram Matter 1 Pain Scale: 0-10 Numeric Is Patient Pain Free? Yes WC - Visit Discharge Discharge Condition Stable Ambulatory Status Wheelchair Transportation Private Auto Medication Reconcilliation completed & Yes provided to patient/care provider Clinical Summary of Care Provided Yes Assessment/Plan Assessment/Plan (1) Paraplegia at T4 level: CODE(S): G82.20 - Paraplegia, unspecified (2) History of tobacco use: CODE(S): Z87.891 - Personal history of nicotine dependence (3) Decubitus ulcer of trochanteric region of left hip, unstageable: CODE(S): L89.220 - Pressure ulcer of left hip, unstageable PLAN: Question whether stage III or stage IV, but bone has appeared to have some soft tissue coverage today with possible reepithelialization. (4) Right ischial pressure sore, stage 3: CODE(S): L89.313 - Pressure ulcer of right buttock, stage 3 PLAN: Plan Patient was evaluated at the wound healing center today. Wound care - To the left ischial ulcer and right ischial/perineal ulcer will be lightly Tram covered with ABD daily. Wash all ulcers with soap and water and rinse with Dakin's 0.25% solution before dressing changes. I stressed the importance of daily dressing changes. Encouraged him to allow family to help with dressing changes. Encourage nutritional supplementation with protein to help the healing process. He saw a spine surgeon at [facility] in [place] who states that his scoliosis is not operable. Plan from 15 January 2025: Continue above for dressing changes We have taken a biopsy for pathologic examination of the left trochanteric wound as it has not been biopsied for a while (follow-up biopsy results) We have ordered a CT scan of the left hip and the pelvis to assess for osteomyelitis and for preoperative planning for potential Girdlestone with reconstruction. Nutrition labs and A1c were also ordered today Follow-up in 2 weeks Plan from 12 Feb 2025: Discussed results of above-noted tests (no malignancy on biopsy, chronic osteomyelitis without any fluid collections for the left hip, and adequate labs for wound healing). Patient is going to think about reconstruction. He needs to quit smoking completely. He is not sure if he would do well with the positioning restrictions and be able to pressure offload and is concerned that we would make a bigger wound. The wound is well-controlled at this point. The patient also has thin skin on the other side over the trochanter that is healed and I would be ashamed to have breakdown on the side if he is trying to pressure offload the contralateral side. Patient is currently content with wound care regimen and would like to continue that at this time and will further consider options for flap reconstruction with a Girdlestone procedure in the future. Follow-up in 1 month. Continue above-noted dressing changes Plan from 12 March 2025: Wound under control, patient happy with continued wound care as noted above. Wound appears to be getting smaller. He is not interested in any surgery at this time for the left trochanteric pressure point. Follow-up in 5 weeks or sooner as needed (discussed strict return precautions). Patient happy with the plan Plan from 16 April 2025: F/u in 6 weeks for another wound check. Continue local wound care. Patient happy with just monitoring wounds for now. Does not want any major surgery. Plan from 28 May 2025: Continue promogran silver daily to the two wounds. Pressure offload as able. Continue high protein diet. F/u in 6 weeks. Patient happy with the plan. Plan from 02 July 2025: Wounds continue to improve with Promogran silver daily. He has been pressure offloading nicely. He is not having any issues with the wounds at this time and would like to continue to live with the wounds and the very superficial greater trochanter pressure point. He is offloading appropriately and protecting this region. Plan to follow-up next month for wound check.
== END 2025-07-10 23:59 | disposition home or self-care (01) ==
LOC: WC 14:39
PROVIDERS: PCP Internal Medicine; Referring Provider Internal Medicine; Visit Provider Surgery Plastic and Reconstructive Surgery
DX: L89.223 Pressure ulcer of left hip, stage 3 (principal); L89.214 Pressure ulcer of right hip, stage 4; G82.20 Paraplegia, unspecified; F17.210 Nicotine dependence, cigarettes, uncomplicated
CPT/HCPCS: 11042

== ENCOUNTER 2025-08-20 14:50 | Outpatient (RCR) | payer MEDICARE, MEDICAID, SELFPAY ==
[2025-08-20 14:50] VITALS: BP 92/67; PULSE 119; RESP 17; TEMP 36.4
--- NOTE | 2025-08-20 15:17 | PN.PCM_ITS ---
History of Present Illness Date of Service: 08/20/25 Chief Complaint: Bilateral ischial pressure sores, Stage IV. History of Wound: Per chart review Surgery 04/08/20 - 1. Excision bleeding right ischial/perineal pressure sore, Stage IV. 2. Control of prostatic bleeding with electrocautery and Surgicel hemostat. Wound Care - Left ischial and right ischial ulcers are moistened Promogran topped with ABD daily. Wash both ulcers with soap and water at the time of the dressing change. Left ischial ulcer culture 12/28/22 positive for MRSA, Staphylococcus haemolyticus, Corynebacterium striatum, Proteus mirabilus, and Streptococcus group F. He was treated with Augmentin and Doxycycline. Wound culture from 03/02/22 positive for Pseudomonas aeroginosa, Morganella morganii sp sibonii, and Corynebacterium. Due to his allergies and the the sensitivity of the cultures, patient was referred to ID, who placed him on Augmentin and Cipro, which he currently is on and is tolerating. Wound culture from 01/20/21 positive for Proteus mirabilis, Cornybacterium minutissium and Bacteroides fragilis. He was referred to ID for antibiotic management, which he was placed on Cefdinir, Doxycycline and Flagyl for 10 days. Patient has long standing bilateral ischial pressure sores, Stage IV, with the left side extending to the femoral head and the right side extending to the perineal area and the prostate. Surgery would entail quite extensive excision with amputations at a tertiary center. Patient does not want to pursue any heroic surgeries at this time since it is not a guarantee his pressure issues won't recur. With aggressive amputations, his already tenuous balance would be even more disrupted. At the present time, we are providing conservative care on a monthly basis. He stated his right leg gets in the way when transferring. He underwent a right AKA on 06/12/20 in [place]. Wound culture was done on 04/22/20. It showed Morganella morganii, Pseudomonas aeroginosa, Streptococcus group F, and Bacteroides fragilis. He has a lot of antibiotic allergies. His only real option is IV antibiotics. Dr. Chester also saw him at the [facility] and felt the wounds were colonized and held off on antibiotics at this time. If his clinical situation were to change, then would re-evaluate him for IV antibiotics at that time. Wound culture from 11/01/20 was positive for MRSA, E. coli, Proteus Mirabilis. He was treated with Augmentin and doxycycline. He had a cystectomy and a partial prostatectomy by Dr. Lala at [facility] on 08/04/22. He states he is feeling better than he was before having his bladder removed. 17 July 2024: Today he denies any fever, chills or nausea and vomiting. Doing well overall. Reports that he is consistent with his wound care. Reports that he wants to see a spine surgeon and needs a referral for evaluation of his kyphosis. There is a spine surgeon in [place] that he would like to go to for a second opinion (Dr. Doty saw the patient in did not think he was a good surgical candidate at this time). Patient believes that his most important health issue is his scoliosis and he would like this corrected first. Of note patient has urostomy, but he manages his bowel movements but digital decompaction (no colostomy) Subjective Subjective 15 January 2025: Patient reports seeing spine surgeon in [place] who suggested that the scoliosis was not operable. He has been doing Tram for wound care to the left trochanteric and the right ischial wounds. He is interested in workup for potential reconstruction. Of note patient lives at home with his nephew in a house that they own just outside of [place]. Patient smokes 1 pack of cigarettes per week for his anxiety and vapes from time to time with vapes that do not have nicotine. I discussed with him smoking cessation and the negative effects of wound healing from nicotine and cigarettes. I talked him about smoking cessation with Chantix and he does not want to try that. 12 Feb 2025: Patient doing well overall. I talked to him extensively about the results of the CT scan which demonstrated open wound down to the greater trochanter region of the left femur but no fluid collections. I talked him about his nutrition status which demonstrated excellent albumin and prealbumin (3.9 and 22). His A1c was 5.2. He has been thinking about the position restrictions lately and is concerned about not laying on his right side as his urostomy bag leaks when he lays on his left side and he is not comfortable laying on the right side. His scoliosis severely limits his ability to position himself off of the left side, and this is likely why he has a wound on the left greater trochanteric region. He may be interested in continuing wound care rather than Girdlestone/flap reconstruction. Left trochanteric wound was biopsied last time and did not demonstrate any signs of malignancy. 12 March 2025: Doing well overall. Reports that the wounds of gotten smaller. He is tolerating dressing changes and is not interested in any major surgery at this time (has thought about our discussions in the past). He is not having any systemic symptoms, fevers or chills. Denies having any drainage from the wounds. 16 April 2025: Doing well overall. No interested in a Girdlestone with a flap at this time (discussed again today. Would like to continue to come for wound checks only. 28 May 2025: Doing well overall. No fevers or chills. Still would like to continued local wound care. Discussed status with him today, and it's not practical for him to do the pressure offloading required for any reconstruction (patient declined). 02 July 2025: Doing well overall and is happy with doing local wound care. No fevers chills or drainage Current encounter, 20 August 2025 Doing well overall and has been changing the Tram over the left trochanteric region, no fevers chills or drainage Objective Data Objective Data Vital Signs: Vital Signs Temp Pulse Resp BP O2 Del Method 97.5 F L 119 H 17 92/67 Room Air 08/20/25 14:50 08/20/25 14:50 08/20/25 14:50 08/20/25 14:50 08/20/25 14:50 Oxygen Delivery Method Room Air Physical Exam Narrative Right ischial wound has healed and remains healed Left ischial wound is healed Left ischial/trochanteric wound with no obvious exposed bone today. No signs of surrounding acute infection. There is a small excoriation that is 1 x 1 cm in the left trochanteric region Const alert and oriented x3 HEENT normocephalic Eyes EOMs intact bilaterally Chest Chest Narrative: Severe kyphosis Cardio regular rate GI GI Narrative: Abdomen with urostomy Debridement Note Debridement Note Wound debrided: Left trochanteric Laterality: Left Wound Grade/Stage: Stage II Type of Debridement: Selective debridement (Biofilm and fibrinous exudate and scab) Anesthesia Used: 4% Lidocaine Solution Depth: Down to and including healthy tissue Percentage of wound debrided: 100 Instrument Used: 7mm curette Tissue Removed: Biofilm and scab Severity: Limited To Skin Breakdown Amount of bleeding with debridement: Mild Bleeding Controlled with: Compression and gauze Patient tolerated procedure: Patient tolerated procedure well Post-Debridement Measurements and Additional Note: Post-Debridement Measurements/Treatment - Nurse 1 - General Ulcer Assessment Start: 08/20/25 14:50 Freq: Status: Active Protocol: WILLIAMS Activity Type Activity Date Activity User E-sign Co-sign Detail Recorded Client Recorded Date Recorded By Document 08/20/25 14:50 [id number] 08/20/25 14:58 TS 08/20/25 14:50 WC - Today's Visit Information Type of service Follow-up Visit (Physician/[facility] ) Arrival Mode Wheelchair Patient Identification Verified (Name & Yes ) Patient Requires Transmission-Based No Precautions Safety Precautions Fall Prevention Vital Signs Temperature (97.8 F-99.1 F) 97.5 F L Temperature Source Temporal Pulse Rate (60-100) 119 H Pulse Location Monitor Respiratory Rate (12-18) 17 Respiratory rate source Observation Oxygen Delivery Method Room Air Blood Pressure (90/60-120/80) 92/67 Blood Pressure Mean (mm Hg) 75 Source Monitor Position Sitting Blood Pressure Location Left Arm History Since Last Visit- (Skip if this is Patient's initial visit) Have you changed medications since your No last visit? Any new allergies or adverse reactions No Had a fall/change in ADL's that may No increase risk of falls Signs or symptoms of abuse and/or No neglect since last visit Have you been in the hospital since your No last visit? Has dressing in place as prescribed Yes Has compression in place as prescribed N/A Has offloadiing in place as prescribed N/A Experienced any changes in pain level or No management Pain Scale: 0-10 Numeric Is Patient Pain Free? Yes - Nurse 1 - General Ulcer Measurement Start: 08/20/25 14:50 Freq: Status: Active Protocol: Activity Type Activity Date Activity User E-sign Co-sign Detail Recorded Client Recorded Date Recorded By Document 08/20/25 14:50 [id number] 08/20/25 14:58 TS 08/20/25 14:50 Wound Center Nurse 1 #8 L Ischium cluster -Combined with other wound No -Current Size (cm) - Length 0.5 -Current Size (cm) - Width 0.5 -Current Size (cm) - Depth 0.1 -Total Square Cm 0.25 -Date of Last Picture (Recall this 08/20/25 field) -Photo Taken Yes -Tunneling No -Undermining/Tunneling No -Circular Undermining No -Exudate Amt Small -Exudate Type Serous -Wound Margin Distinct, Outline Attached -Granulation Amt Medium (34-66%) -Granulation Quality Pale,Red -Texture (Steffi-wound Skin Appearance) Assessed -Moisture (Steffi-wound Skin Appearance) Assessed -Color (Steffi-wound Skin Appearance) No Abnormality -Temperature (Steffi-wound Skin No Abnormality Appearance) (Pt Warm) -Ulcer Cleansing Soap and Water -Foul Odor after Cleansing No WC - Nurse 2 - General Ulcer CM Notes Start: 08/20/25 14:50 Freq: Status: Active Protocol: Activity Type Activity Date Activity User E-sign Co-sign Detail Recorded Client Recorded Date Recorded By Document 08/20/25 15:09 DEBORAH [id number] 08/20/25 15:13 DEBORAH 08/20/25 15:09 Wound Center Nurse 2 -Time 15:12 -Correct Patient Yes -Correct Side, Site, Position Yes -Correct Procedure Yes -Procedure Performed Yes -Type of Procedure Debridement -Clinical Debridement Epidermis / Dermis -Tissue Removed Epidermis, Dermis -Post Debridement (cm) - Length 0.1 -Post Debridement (cm) - Width 0.1 -Post Debridement (cm) - Depth 0.1 -Total Square (Post) (cm) 0.01 -Area of Debridement (cm) - Length 0.1 -Area of Debridement (cm) - Width 0.1 -Total Square (Area) (cm) 0.01 -Tunneling No -Undermining/Tunneling No -Circular Undermining No -Wound/Ulcer Outcome Not Healed -Debridement - Open, 1st 20sq cm Yes Pain Scale: 0-10 Numeric Is Patient Pain Free? Yes Assessment/Plan Assessment/Plan (1) Pressure ulcer of left hip: CODE(S): L89.229 - Pressure ulcer of left hip, unspecified stage PLAN: Doing great Follow-up in 6 weeks to check progress Encouraged to continue pressure offloading Continue Tram dressings to the small skin excoriation
--- NOTE | 2025-08-21 08:36 | WC ---
PHOTO-LEFT ISCHIAL 08/20/25
== END 2025-09-09 23:59 | disposition home or self-care (01) ==
LOC: WC 14:50
PROVIDERS: PCP Internal Medicine; Referring Provider Internal Medicine; Visit Provider Surgery Plastic and Reconstructive Surgery
DX: L89.222 Pressure ulcer of left hip, stage 2 (principal); F17.210 Nicotine dependence, cigarettes, uncomplicated
CPT/HCPCS: 97597